=== PATIENT | female | born 1945 | race Caucasian/White ===

== ENCOUNTER 2021-01-30 21:03 | Inpatient (IN) ==
[2021-01-30] MEDS ORDERED: SODIUM CHLORIDE 0.9% 1000ML 1,000 ML IV SCH (21:15)
[2021-01-30] MEDS ORDERED: ACETAMINOPHEN 1,000 MG/100 ML VIAL IV STA (21:15)
[2021-01-30 21:38] LABS: Basophils # (auto) 0.02 K/uL (0-0.2); Basophils % (auto) 0.2 %; Eosinophils # (auto) 0.02 K/uL (0-0.5); Eosinophils % (auto) 0.2 %; Hematocrit (blood only) 24.9 % (37-47); Hemoglobin 8.2 g/dL (12.0-16.0); Immature Granulocytes # (auto) 0.04 K/uL (0.00-0.02); Immature Granulocytes % (auto) 0.4 %; Lymphocytes # (auto) 0.34 K/uL (1.2-3.4); Lymphocytes % (auto) 3.7 %; Mean Corpuscular Hemoglobin 38.7 pg (25-34); Mean Corpuscular Hgb Conc 32.9 g/dL (32-36); Mean Corpuscular Volume 117.5 fL (80-100); Mean Platelet Volume 8.8 fL (7.4-10.4); Monocytes # (auto) 0.44 K/uL (0.11-0.59); Monocytes % (auto) 4.8 %; Neutrophils # (auto) 8.38 K/uL (1.4-6.5); Neutrophils % (auto) 90.7 %; Platelet Count 439 K/uL (130-400); RDW Coefficient of Variation 23.4 % (11.5-14.5); RDW Standard Deviation 99.1 fL (36.4-46.3); Red Blood Count 2.12 M/uL (4.2-5.4); White Blood Count 9.24 K/uL (4.8-10.8)
[2021-01-30 21:48] LABS: INR 1.1 (0.9-1.1); Partial Thromboplastin Ratio 1.1; Prothrombin Time 10.9 Seconds (9.0-12.0)
[2021-01-30 22:03] LABS: Alanine Aminotransferase 13 U/L (12-78); Albumin Level 2.3 gm/dl (3.4-5.0); Aspartate Aminotransferase 14 U/L (15-37); BUN Creatinine Ratio 20.1 (10-20); Blood Urea Nitrogen 22 mg/dl (7-18); Calcium 8.3 mg/dl (8.5-10.1); Carbon Dioxide 28 mmol/L (21-32); Chloride 101 mmol/L (98-107); Est GFR (African American) 56.7; Est GFR (Non-African American) 48.9; Glucose 233 mg/dl (70-99); Magnesium 2.2 mg/dl (1.8-2.4); Potassium 3.6 mmol/L (3.5-5.1); Sodium 135 mmol/L (136-145)
[2021-01-30 22:08] LABS: Albumin Globulin Ratio 0.6 (0.9-2); Alkaline Phosphatase 100 U/L (45-117); Bilirubin,Total 0.8 mg/dl (0.2-1); Globulin 4.2 gm/dl (2.5-4.0); Total Protein 6.5 gm/dl (6.4-8.2); Troponin I < 0.015 ng/ml (0-0.045)
[2021-01-30 22:45] LABS: Appearance Urine Turbid (Clear); Bacteria Urine Automated Negative (Negative); Bilirubin Urine Negative (Negative); Blood Urine Trace (Negative); Color Urine Yellow; Epithelial Cell Urine Auto >30 /lpf (0-5); Glucose Urine UA Negative (Negative); Ketones Urine Negative (Negative); Leukocyte Esterase Urine Trace (Negative); Nitrite Urine Negative (Negative); Specific Gravity Urine 1.016 (1.000-1.030); Urobilinogen Urine Negative (Negative); pH Urine 7.5 (4.5-7.5)
[2021-01-30 22:48] LABS: Protein Urine 1+ (Negative)
[2021-01-30 22:48] LABS: Anisocytosis Present; Macrocytosis Present; Ovalocytes 1+
[2021-01-30 22:57] LABS: Calcium Oxalate Crystals Urine Present (None Prsent)
[2021-01-30] MEDS ORDERED: VANCOMYCIN HCL 1,500 MG in SODIUM CHLORIDE 0.9% 500 ML IV ONE (23:01)
[2021-01-30] MEDS ORDERED: CEFEPIME 2,000 MG/20 ML VIAL IV STA (23:01)
[2021-01-30] MEDS ORDERED: VANCOMYCIN CONSULT ACTIVE PRN (23:01)
[2021-01-30 23:18] LABS: Influenza A virus by PCR Negative (Neg); Influenza B virus by PCR Negative (Neg); RSV by PCR Negative (Neg); SARS CoV2 RNA(COVID-19) InHosp NEGATIVE (Negative)
--- NOTE | 2021-01-30 23:57 | History & Physical Report ---
Date of Service January 30, 2021 Assessment & Plan (1) Heel ulcer: S/p skin plasty performed by Podiatry. Deep wound culture from 01/24/21 with 2+ ESBL E. coli as well as 3+ Pseudomonas and 2+ Morganella morganii. 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 Was on Daptomycin then Ertapenem/Levofloxacin. She is febrile on arrival but does not appear toxic or septic. Concern for possible bacteremia from recent procedure? -Observation to medical -Podiatry consultation appreciated -Empiric coverage with Vancomycin and Meropenem - will cover her history of MRSA as well as her ESBL E. coli, Morganella and Pseudomonas isolated from wound culture -Consider ID consultation? Patient is able to receive IV abx at her care home -Isolation precautions - Contact - for history of ESBL as well as MRSA -Continue Vitamin C to aide in wound heeling as well as Zinc Present on Admission?: Yes (2) Fever: As above. Patinent is HD stable and does not appear to be septic. -Follow cultures -Abx as above Present on Admission?: Yes (3) Hypothyroid: Chronic. s/p thyroidectomy -Continue Synthroid 125mcg po daily Present on Admission?: Yes (4) HTN (hypertension): Chronic. Blood pressure stable at present, 113/55 -Continue Metoprolol 50mg po BID Present on Admission?: Yes (5) Diabetes type 2, controlled: Chronic. Blood sugar is well controlled -Continue Lantus 20 mg qPM -ISS -Continue Gabapentin Present on Admission?: Yes (6) Chronic incomplete quadriplegia: -Continue Flexeril -Continue Baclofen -Fall precautions -Aspiration precautions Present on Admission?: Yes (7) CAD (coronary artery disease): Chronic. Stable. No CP -Continue Atorvastatin -Continue Zetia -Continue Metoprolol Present on Admission?: Yes (8) Anemia: Near baseline. Hgb=8.2, Hct=24.9. Macrocytic with ZHH=599.5. No active bleeding suspected. -Continue to monitor -Check B12 and Folate with AM labs F/E/N - Encourage PO intake. Electrolytes WNL. CC/AHA diet as tolerated, continue bowel regimen with Miralax daily and Colace PRN Ppx - Lovenox 40 Code - Full Dispo -Observation to medical Present on Admission?: Yes History of Present Illness Chief Complaint: fever Primary Care Provider: [facility] Anette Weller is a 75yo female with partial quadriparesis presenting from her care home with fever x 1 day. Patient had a bone spur excision/calcanectomy performed on 01/20/[address] Holly of Podiatry. She was seen again on 01/29/21 with complaint of ulcer at the area. She was found to have a right full thickness retrocalcaneal heel wound with exposed achilles tendon wound 9 x 8 x 3cm. A wound culture showed multiple organisms - Pseudomonas, Morganella and ESBL E.coli Patient had been on Daptomycin 270mg IV daily. She had a skin- plasty performed to assist with wound healing. Patient was started on Ertapenem and Levofloxacin which was recommended by ID team from [facility] She presents to ER today with fever. Also with episodic nausea, two episodes of non-bloody/non-bilious emesis this week. No additional complaints. Specifically denies chest pain/palpitations/cough/SOB/abdominal pain/diarrhea. Case discussed with Food Products Tester who will see patient in AM ER course: Vancomycin, Cefepime Allergies Allergy/AdvReac Type Severity Reaction Status Date / Time mold Allergy Unknown Verified 01/30/21 22:18 pollen extracts Allergy Unknown Verified 01/30/21 22:18 artificial sweeteners Allergy Unknown Uncoded 01/30/21 22:19 Home Medications Medication Instructions Recorded Confirmed Type Protein Powder 1 dose PO TID 01/30/21 01/30/21 History acetaminophen [Tylenol] 650 mg PO Q6 PRN 01/30/21 01/30/21 History albuterol sulfate [Proventil HFA] 2 puff INHALATION Q4 PRN 01/30/21 01/30/21 History ascorbic acid (vitamin C) [Vitamin 500 mg PO BID 01/30/21 01/30/21 History C] atorvastatin 80 mg PO QPM 01/30/21 01/30/21 History baclofen 5 mg PO BID 01/30/21 01/30/21 History baclofen 10 mg PO HS 01/30/21 01/30/21 History bisacodyl [Dulcolax (bisacodyl)] 10 mg [place] UD PRN 01/30/21 01/30/21 History cyclobenzaprine 10 mg PO Q8 PRN 01/30/21 01/30/21 History ertapenem 1 g IV DAILY 01/30/21 01/30/21 History ezetimibe [Zetia] 10 mg PO DAILY 01/30/21 01/30/21 History ferrous sulfate [Iron (ferrous 325 mg PO DAILY 01/30/21 01/30/21 History sulfate)] gabapentin 100 mg PO TID 01/30/21 01/30/21 History heparin lock flush (porcine) 5 unit IV QS 01/30/21 01/30/21 History [heparin lock flush] hydroxyurea 500 mg PO BID 01/30/21 01/30/21 History insulin aspart U-100 [Novolog 0 sliding scale dose SUBCUT UD 01/30/21 01/30/21 History U-100 Insulin aspart] insulin glargine [Lantus U-100 20 unit SUBCUT QPM 01/30/21 01/30/21 History Insulin] levofloxacin 750 mg PO DAILY 01/30/21 01/30/21 History levothyroxine 125 mcg PO DAILY 01/30/21 01/30/21 History magnesium oxide 400 mg PO DAILY 01/30/21 01/30/21 History melatonin 1 mg PO HS 01/30/21 01/30/21 History metoprolol tartrate 50 mg PO Q12 01/30/21 01/30/21 History multivitamin 1 tab PO DAILY 01/30/21 01/30/21 History ondansetron HCl [Zofran] 4 mg PO Q6H PRN 01/30/21 01/30/21 History peg 400-propylene glycol [Systane 1 drp OPHTHALMIC (EYE) QPM 01/30/21 01/30/21 History Gel] polyethylene glycol 3350 [Miralax] 17 g PO DAILY 01/30/21 01/30/21 History sodium chloride 1 spray INTRANASAL Q6 PRN 01/30/21 01/30/21 History sodium chloride 0.9 % (flush) 10 ml IV QS 01/30/21 01/30/21 History [Saline Flush] zinc sulfate 220 mg PO DAILY 01/30/21 01/30/21 History Past Med/Surg History Medical History (Updated 01/31/21 @ 00:18 by Lili Rodríugez DO) Anemia CAD (coronary artery disease) Cardiomyopathy Chronic incomplete quadriplegia Depression Diabetes type 2, controlled History of DVT (deep vein thrombosis) 02/26/20 LLE History of ND (myocardial infarction) 2004 History of renal cell cancer HTN (hypertension) Hypothyroid Myelodysplasia (myelodysplastic syndrome) Neurogenic bowel Seasonal asthma Surgical History (Updated 03/01/20 @ 09:48 by Stephy Alejo RN) History of right nephrectomy History of thyroidectomy Social History Smoking Status: Never smoker Preferred Language: Faroese Feels Safe at Home: Yes Review of Systems Review of Systems: All systems reviewed & are unremarkable except as noted in HPI & below Physical Exam Physical Exam: General: patient chronically ill in appearance, resting comfortably, NAD, AA&O x 4 Skin: warm, dry, intact, bandage on right heel,c/d/i HEENT: NC/AT, PERRL, EOMI, anicteric sclera, conjunctiva without injection, external ear normal to inspection and nontender, nares patent, moist mucus membranes, dentition intact, no oropharyngeal lesions, neck supple, trachea midline, no LAD, no thyromegaly, no JVD Heart: +S1/S2, regular, no m/r/g Lungs: equal air entry bilaterally, no rales/rhonchi/wheezes Abd: +BS, soft, NT/ND, no masses/organomegaly/ascites, indwelling [place] catheter Ext: warm, palpable pulses, no edema Neuro: AA&O x 4, speech intact, no facial droop, muscular weakness in all extremities, flexion contractures present on hands and feet Results & Data Results & Data ([facility]) Vital Signs (Past 12 Hours) Vital Signs Temp Pulse Resp BP Pulse Ox 01/30/21 23:41 37.1 C 01/30/21 23:30 84 21 113/55 L 95 01/30/21 23:00 82 20 120/57 L 94 01/30/21 22:45 81 23 93 01/30/21 22:30 85 21 118/62 94 01/30/21 22:15 85 23 94 01/30/21 22:00 87 22 123/59 L 93 01/30/21 21:45 91 H 21 95 01/30/21 21:31 87 21 01/30/21 21:30 88 20 115/58 L 01/30/21 21:11 38.1 C H 93 H 20 113/58 L 94 Laboratory Results Lab Results 01/30/21 01/30/21 01/30/21 Range/Units 21:23 21:23 21:23 WBC 9.24 (4.8-10.8) K/uL RBC 2.12 L (4.2-5.4) M/uL Hgb 8.2 L (12.0-16.0) g/dL Hct 24.9 L (37-47) % MCV 117.5 H (80-100) fL MCH 38.7 H (25-34) pg MCHC 32.9 (32-36) g/dL RDW Std Deviation 99.1 H (36.4-46.3) fL RDW Coeff of Alicia 23.4 H (11.5-14.5) % Plt Count 439 H (130-400) K/uL MPV 8.8 (7.4-10.4) fL Immature Gran % (Auto) 0.4 % Neut % (Auto) 90.7 % Lymph % (Auto) 3.7 % [place] % (Auto) 4.8 % Eos % (Auto) 0.2 % Baso % (Auto) 0.2 % Neut # (Auto) 8.38 H (1.4-6.5) K/uL Lymph # (Auto) 0.34 L (1.2-3.4) K/uL [place] # (Auto) 0.44 (0.11-0.59) K/uL Eos # (Auto) 0.02 (0-0.5) K/uL Baso # (Auto) 0.02 (0-0.2) K/uL Immature Gran # (Auto) 0.04 H (0.00-0.02) K/uL Hypersegmented Neuts 1+ Anisocytosis Present Macrocytosis Present Ovalocytes 1+ PT 10.9 (9.0-12.0) Seconds INR 1.1 (0.9-1.1) APTT 28.0 (21.0-31.0) Seconds PTT Ratio 1.1 Sodium 135 L (136-145) mmol/L Potassium 3.6 (3.5-5.1) mmol/L Chloride 101 (98-107) mmol/L Carbon Dioxide 28 (21-32) mmol/L Anion Gap 6.0 (3-11) BUN 22 H (7-18) mg/dl Creatinine 1.11 (0.6-1.2) mg/dl Est Cr Clr Drug Dosing Not Reportable Est GFR ( Amer) 56.7 Est GFR (Non-Af Amer) 48.9 BUN/Creatinine Ratio 20.1 H (10-20) Glucose 233 H (70-99) mg/dl Lactate (0.4-2.0) mmol/L Calcium 8.3 L (8.5-10.1) mg/dl Magnesium 2.2 (1.8-2.4) mg/dl Total Bilirubin 0.8 (0.2-1) mg/dl AST 14 L (15-37) U/L ALT 13 (12-78) U/L Alkaline Phosphatase 100 (45-117) U/L Troponin I < 0.015 (0-0.045) ng/ml Total Protein 6.5 (6.4-8.2) gm/dl Albumin 2.3 L (3.4-5.0) gm/dl Globulin 4.2 H (2.5-4.0) gm/dl Albumin/Globulin Ratio 0.6 L (0.9-2) Procalcitonin (0-0.5) ng/ml Urine Color Urine Appearance (Clear) Urine pH (4.5-7.5) Ur Specific [place] (1.000-1.030) Urine Protein (Negative) Urine Glucose (UA) (Negative) Urine Ketones (Negative) Urine Blood (Negative) Urine Nitrite (Negative) Urine Bilirubin (Negative) Urine Urobilinogen (Negative) Ur Leukocyte Esterase (Negative) Urine WBC (Auto) (0-5) /hpf Urine RBC (Auto) (0-4) /hpf U Hyaline Cast (Auto) (0-5) /lpf U Epithel Cells (Auto) (0-5) /lpf Urine Bacteria (Auto) (Negative) Urine Crystals Calcium Oxalate Crystal (None Prsent) Urine Yeast (None Prsent) COVID-19 Eval Order SARS-CoV-2 (PCR) (Negative) Influenza Type A (PCR) (Neg) Influenza Type B (PCR) (Neg) RSV (RT-PCR) (Neg) 01/30/21 01/30/21 01/30/21 Range/Units 21:23 21:23 22:28 WBC (4.8-10.8) K/uL RBC (4.2-5.4) M/uL Hgb (12.0-16.0) g/dL Hct (37-47) % MCV (80-100) fL MCH (25-34) pg MCHC (32-36) g/dL RDW Std Deviation (36.4-46.3) fL RDW Coeff of Alicia (11.5-14.5) % Plt Count (130-400) K/uL MPV (7.4-10.4) fL Immature Gran % (Auto) % Neut % (Auto) % Lymph % (Auto) % [place] % (Auto) % Eos % (Auto) % Baso % (Auto) % Neut # (Auto) (1.4-6.5) K/uL Lymph # (Auto) (1.2-3.4) K/uL [place] # (Auto) (0.11-0.59) K/uL Eos # (Auto) (0-0.5) K/uL Baso # (Auto) (0-0.2) K/uL Immature Gran # (Auto) (0.00-0.02) K/uL Hypersegmented Neuts Anisocytosis Macrocytosis Ovalocytes PT (9.0-12.0) Seconds INR (0.9-1.1) APTT (21.0-31.0) Seconds PTT Ratio Sodium (136-145) mmol/L Potassium (3.5-5.1) mmol/L Chloride (98-107) mmol/L Carbon Dioxide (21-32) mmol/L Anion Gap (3-11) BUN (7-18) mg/dl Creatinine (0.6-1.2) mg/dl Est Cr Clr Drug Dosing Est GFR ( Amer) Est GFR (Non-Af Amer) BUN/Creatinine Ratio (10-20) Glucose (70-99) mg/dl Lactate 1.0 (0.4-2.0) mmol/L Calcium (8.5-10.1) mg/dl Magnesium (1.8-2.4) mg/dl Total Bilirubin (0.2-1) mg/dl AST (15-37) U/L ALT (12-78) U/L Alkaline Phosphatase (45-117) U/L Troponin I (0-0.045) ng/ml Total Protein (6.4-8.2) gm/dl Albumin (3.4-5.0) gm/dl Globulin (2.5-4.0) gm/dl Albumin/Globulin Ratio (0.9-2) Procalcitonin 0.23 (0-0.5) ng/ml Urine Color Yellow Urine Appearance Turbid A (Clear) Urine pH 7.5 (4.5-7.5) Ur Specific [place] 1.016 (1.000-1.030) Urine Protein 1+ H (Negative) Urine Glucose (UA) Negative (Negative) Urine Ketones Negative (Negative) Urine Blood Trace H (Negative) Urine Nitrite Negative (Negative) Urine Bilirubin Negative (Negative) Urine Urobilinogen Negative (Negative) Ur Leukocyte Esterase Trace H (Negative) Urine WBC (Auto) 10-30 H (0-5) /hpf Urine RBC (Auto) 5-10 H (0-4) /hpf U Hyaline Cast (Auto) 10-30 H (0-5) /lpf U Epithel Cells (Auto) >30 H (0-5) /lpf Urine Bacteria (Auto) Negative (Negative) Urine Crystals Not Reportable Calcium Oxalate Crystal Present A (None Prsent) Urine Yeast Budding w/ Hyphae A (None Prsent) COVID-19 Eval Order SARS-CoV-2 (PCR) (Negative) Influenza Type A (PCR) (Neg) Influenza Type B (PCR) (Neg) RSV (RT-PCR) (Neg) 01/30/21 01/30/21 Range/Units 22:28 22:28 WBC (4.8-10.8) K/uL RBC (4.2-5.4) M/uL Hgb (12.0-16.0) g/dL Hct (37-47) % MCV (80-100) fL MCH (25-34) pg MCHC (32-36) g/dL RDW Std Deviation (36.4-46.3) fL RDW Coeff of Alicia (11.5-14.5) % Plt Count (130-400) K/uL MPV (7.4-10.4) fL Immature Gran % (Auto) % Neut % (Auto) % Lymph % (Auto) % [place] % (Auto) % Eos % (Auto) % Baso % (Auto) % Neut # (Auto) (1.4-6.5) K/uL Lymph # (Auto) (1.2-3.4) K/uL [place] # (Auto) (0.11-0.59) K/uL Eos # (Auto) (0-0.5) K/uL Baso # (Auto) (0-0.2) K/uL Immature Gran # (Auto) (0.00-0.02) K/uL Hypersegmented Neuts Anisocytosis Macrocytosis Ovalocytes PT (9.0-12.0) Seconds INR (0.9-1.1) APTT (21.0-31.0) Seconds PTT Ratio Sodium (136-145) mmol/L Potassium (3.5-5.1) mmol/L Chloride (98-107) mmol/L Carbon Dioxide (21-32) mmol/L Anion Gap (3-11) BUN (7-18) mg/dl Creatinine (0.6-1.2) mg/dl Est Cr Clr Drug Dosing Est GFR ( Amer) Est GFR (Non-Af Amer) BUN/Creatinine Ratio (10-20) Glucose (70-99) mg/dl Lactate (0.4-2.0) mmol/L Calcium (8.5-10.1) mg/dl Magnesium (1.8-2.4) mg/dl Total Bilirubin (0.2-1) mg/dl AST (15-37) U/L ALT (12-78) U/L Alkaline Phosphatase (45-117) U/L Troponin I (0-0.045) ng/ml Total Protein (6.4-8.2) gm/dl Albumin (3.4-5.0) gm/dl Globulin (2.5-4.0) gm/dl Albumin/Globulin Ratio (0.9-2) Procalcitonin (0-0.5) ng/ml Urine Color Urine Appearance (Clear) Urine pH (4.5-7.5) Ur Specific [place] (1.000-1.030) Urine Protein (Negative) Urine Glucose (UA) (Negative) Urine Ketones (Negative) Urine Blood (Negative) Urine Nitrite (Negative) Urine Bilirubin (Negative) Urine Urobilinogen (Negative) Ur Leukocyte Esterase (Negative) Urine WBC (Auto) (0-5) /hpf Urine RBC (Auto) (0-4) /hpf U Hyaline Cast (Auto) (0-5) /lpf U Epithel Cells (Auto) (0-5) /lpf Urine Bacteria (Auto) (Negative) Urine Crystals Calcium Oxalate Crystal (None Prsent) Urine Yeast (None Prsent) COVID-19 Eval Order CovFluRsv at [facility] SARS-CoV-2 (PCR) NEGATIVE (Negative) Influenza Type A (PCR) Negative (Neg) Influenza Type B (PCR) Negative (Neg) RSV (RT-PCR) Negative (Neg) Code Status & VTE Plan VTE Prophylaxis Plan VTE Prophylaxis will be ordered: Yes PG Care Time/CCT Total # of Minutes Spent Total Time Spent with Patient: Total time spent is greater than 50% in coordination of care (as documented) at patient's floor/unit and/or counseling patient: Coding Level of Care Code 21058 OBS Care - Level 3 Diagnoses Heel ulcer L97.419 Laterality: right Non-pressure ulcer stage: unspecified non-pressure ulcer stage Fever R50.9 Fever type: unspecified Hypothyroid E03.9 Hypothyroidism type: unspecified HTN (hypertension) I10 Hypertension type: unspecified Diabetes type 2, controlled E11.9 Diabetes mellitus shelter insulin use: unspecified shelter insulin use status Diabetes mellitus complication status: without complication Chronic incomplete quadriplegia G82.50 CAD (coronary artery disease) I25.10 Coronary Disease-Associated Artery/Lesion type: [place] artery [place] vs. transplanted heart: [place] heart Associated angina: without angina Anemia D64.9 Anemia type: unspecified type (1) Heel ulcer Laterality: right Non-pressure ulcer stage: unspecified non-pressure ulcer stage Qualified Code(s): L97.419 - Non-pressure chronic ulcer of right heel and midfoot with unspecified severity (2) Fever Fever type: unspecified Qualified Code(s): R50.9 - Fever, unspecified (3) Hypothyroid Hypothyroidism type: unspecified Qualified Code(s): E03.9 - Hypothyroidism, unspecified (4) HTN (hypertension) Hypertension type: unspecified Qualified Code(s): I10 - Essential (primary) hypertension (5) Diabetes type 2, controlled Diabetes mellitus shelter insulin use: unspecified salvage determiner insulin use status Diabetes mellitus complication status: without complication Qualified Code(s): E11.9 - Type 2 diabetes mellitus without complications (6) CAD (coronary artery disease) Coronary Disease-Associated Artery/Lesion type: [place] artery [place] vs. transplanted heart: [place] heart Associated angina: without angina Qualified Code(s): I25.10 - Atherosclerotic heart disease of [place] coronary artery without angina pectoris (7) Anemia Anemia type: unspecified type Qualified Code(s): D64.9 - Anemia, unspecified
--- NOTE | 2021-01-31 00:10 | Emergency Department Note ---
History of Present Illness General Chief complaint: Illness Stated complaint: ILLNESS, FEVER Time Seen by Provider: 01/30/21 21:05 History of Present Illness Provider complaint: Fever Onset (ago): day(s) 1 75-year-old quadriplegic presents emergency department from the [facility] for fever. Patient denies any cough. She states she has been feeling nauseous and ill. Patient states she is tested negative for COVID-19. Patient had recent foot surgery by Dr. Holly podiatry. Home Medications Medication Instructions Recorded Confirmed Type Protein Powder 1 dose PO TID 01/30/21 01/30/21 History acetaminophen [Tylenol] 650 mg PO Q6 PRN 01/30/21 01/30/21 History albuterol sulfate [Proventil HFA] 2 puff INHALATION Q4 PRN 01/30/21 01/30/21 History ascorbic acid (vitamin C) [Vitamin 500 mg PO BID 01/30/21 01/30/21 History C] atorvastatin 80 mg PO QPM 01/30/21 01/30/21 History baclofen 5 mg PO BID 01/30/21 01/30/21 History baclofen 10 mg PO HS 01/30/21 01/30/21 History bisacodyl [Dulcolax (bisacodyl)] 10 mg AK UD PRN 01/30/21 01/30/21 History cyclobenzaprine 10 mg PO Q8 PRN 01/30/21 01/30/21 History ertapenem 1 g IV DAILY 01/30/21 01/30/21 History ezetimibe [Zetia] 10 mg PO DAILY 01/30/21 01/30/21 History ferrous sulfate [Iron (ferrous 325 mg PO DAILY 01/30/21 01/30/21 History sulfate)] gabapentin 100 mg PO TID 01/30/21 01/30/21 History heparin lock flush (porcine) 5 unit IV QS 01/30/21 01/30/21 History [heparin lock flush] hydroxyurea 500 mg PO BID 01/30/21 01/30/21 History insulin aspart U-100 [Novolog 0 sliding scale dose SUBCUT UD 01/30/21 01/30/21 History U-100 Insulin aspart] insulin glargine [Lantus U-100 20 unit SUBCUT QPM 01/30/21 01/30/21 History Insulin] levofloxacin 750 mg PO DAILY 01/30/21 01/30/21 History levothyroxine 125 mcg PO DAILY 01/30/21 01/30/21 History magnesium oxide 400 mg PO DAILY 01/30/21 01/30/21 History melatonin 1 mg PO HS 01/30/21 01/30/21 History metoprolol tartrate 50 mg PO Q12 01/30/21 01/30/21 History multivitamin 1 tab PO DAILY 01/30/21 01/30/21 History ondansetron HCl [Zofran] 4 mg PO Q6H PRN 01/30/21 01/30/21 History peg 400-propylene glycol [Systane 1 drp OPHTHALMIC (EYE) QPM 01/30/21 01/30/21 History Gel] polyethylene glycol 3350 [Miralax] 17 g PO DAILY 01/30/21 01/30/21 History sodium chloride 1 spray INTRANASAL Q6 PRN 01/30/21 01/30/21 History sodium chloride 0.9 % (flush) 10 ml IV QS 01/30/21 01/30/21 History [Saline Flush] zinc sulfate 220 mg PO DAILY 01/30/21 01/30/21 History Allergies Allergy/AdvReac Type Severity Reaction Status Date / Time mold Allergy Unknown Verified 01/30/21 22:18 pollen extracts Allergy Unknown Verified 01/30/21 22:18 artificial sweeteners Allergy Unknown Uncoded 01/30/21 22:19 Past Med/Surg History Medical History Anemia CAD (coronary artery disease) Cardiomyopathy Chronic incomplete quadriplegia Depression Diabetes type 2, controlled History of DVT (deep vein thrombosis) 02/26/20 LLE History of MS (myocardial infarction) 2004 History of renal cell cancer HTN (hypertension) Hypothyroid Myelodysplasia (myelodysplastic syndrome) Neurogenic bowel Seasonal asthma Surgical History History of right nephrectomy History of thyroidectomy Social History Smoking Status: Never smoker Preferred Language: Danish Feels Safe at Home: Yes Review of Systems A total of 10 systems reviewed and were otherwise negative Physical Exam Vital Signs Vital Signs - 24 hr 01/30/21 21:11 01/30/21 21:14 01/30/21 21:30 Temperature 38.1 C H Temperature Source Rectal Pulse Rate 93 H 88 Pulse Rate from SpO2 Sensor 88 Respiratory Rate 20 20 Respiratory Effort / Characteristics Non-Labored Spontaneous Non-Labored Spontaneous Respiratory Depth Normal Respiratory Pattern Regular Blood Pressure 113/58 L 115/58 L Blood Pressure Mean 76 77 Blood Pressure Position Lying Pulse Oximetry 94 Oxygen Delivery Method Room Air Room Air Sepsis Recent Fever Within 48 Hours No Sepsis New/Unexplained Change in Mental Status No Sepsis Action Taken by Nursing No Action Required 01/30/21 21:31 01/30/21 21:44 01/30/21 21:45 Temperature Temperature Source Pulse Rate 87 91 H Pulse Rate from SpO2 Sensor 86 91 H Respiratory Rate 21 21 Respiratory Effort / Characteristics Non-Labored Spontaneous Respiratory Depth Respiratory Pattern Blood Pressure Blood Pressure Mean Blood Pressure Position Pulse Oximetry 95 Oxygen Delivery Method Room Air Room Air Room Air Sepsis Recent Fever Within 48 Hours Sepsis New/Unexplained Change in Mental Status Sepsis Action Taken by Nursing 01/30/21 22:00 01/30/21 22:14 01/30/21 22:15 Temperature Temperature Source Pulse Rate 87 85 Pulse Rate from SpO2 Sensor 87 86 Respiratory Rate 22 23 Respiratory Effort / Characteristics Non-Labored Spontaneous Respiratory Depth Respiratory Pattern Blood Pressure 123/59 L Blood Pressure Mean 80 Blood Pressure Position Pulse Oximetry 93 94 Oxygen Delivery Method Room Air Room Air Room Air Sepsis Recent Fever Within 48 Hours Sepsis New/Unexplained Change in Mental Status Sepsis Action Taken by Nursing 01/30/21 22:30 01/30/21 22:45 01/30/21 23:00 Temperature Temperature Source Pulse Rate 85 81 82 Pulse Rate from SpO2 Sensor 85 81 81 Respiratory Rate 21 23 20 Respiratory Effort / Characteristics Non-Labored Spontaneous Non-Labored Spontaneous Respiratory Depth Respiratory Pattern Blood Pressure 118/62 120/57 L Blood Pressure Mean 80 78 Blood Pressure Position Pulse Oximetry 94 93 94 Oxygen Delivery Method Room Air Room Air Room Air Sepsis Recent Fever Within 48 Hours Sepsis New/Unexplained Change in Mental Status Sepsis Action Taken by Nursing 01/30/21 23:30 01/30/21 23:41 Temperature 37.1 C Temperature Source Oral Pulse Rate 84 Pulse Rate from SpO2 Sensor Respiratory Rate 21 Respiratory Effort / Characteristics Respiratory Depth Respiratory Pattern Blood Pressure 113/55 L Blood Pressure Mean 74 Blood Pressure Position Pulse Oximetry 95 Oxygen Delivery Method Room Air Sepsis Recent Fever Within 48 Hours Sepsis New/Unexplained Change in Mental Status Sepsis Action Taken by Nursing Physical Exam GENERAL: She is oriented to person, place, and time. She appears well-developed and well-nourished. She does not appear distressed. HENT: Exam performed. -Head: Normocephalic and atraumatic. -Right Ear: External ear normal. No mastoid tenderness. -Left Ear: External ear normal. No mastoid tenderness. -Mouth/Throat: The oropharynx is clear and moist. No trismus in the jaw. No dental abscesses or uvula swelling. No oropharyngeal exudate or tonsillar abscesses. EYES: Conjunctivae and EOM are normal. Pupils are equal, round, and reactive to light. Right eye exhibits no discharge. Left eye exhibits no discharge. No scleral icterus. NECK: Normal range of motion. Neck supple. No JVD present. No spinous process tenderness present. No carotid bruit present. No rigidity. No tracheal deviation and normal range of motion present. No Brudzinski's sign and no Kernig's sign noted. CV: Normal rate, regular rhythm, normal heart sounds and intact distal pulses. There is no peripheral edema. Palpable radial pulses bue. PULM/CHEST: Rhonchi bilaterally ABD: The abdomen is soft. MUSC/SKEL: Dressing over the right lower extremity. Patient states not to remove the dressing as she has been told strictly by Dr. Holly not to remove the dressing. PSYCH: She has a normal mood and affect. Behavior is normal. Judgment and thought content normal. Course Course 2104: The patient was evaluated in room A11. A complete history and physical exam was performed Cardiac monitoring: An order was placed for continuous cardiac monitoring. The monitor shows a rate of 100 with sinus rhythm Sepsis protocols initiated. 2257: Vital signs stable. Labs within normal limits. Imaging shows no evidence of pneumonia. Urinalysis shows no signs of acute UTI. I did discuss the case with Dr. Holly the patient's surgeon. He states that earlier this month the patient had a calcanectomy and on Thursday she had a skin plasty. He recommends not to remove the dressing. He states she has been on ertapenem and Levaquin recommended by infectious disease at [facility]. I explained him that the patient will be admitted to the [facility]ist team and he could evaluate the patient in the morning to make sure that the wound is not infected. Broad- spectrum antibiotics vancomycin and cefepime will be initiated. He states he is happy to be on consult. Patient will be admitted to the [facility] Hospitalist team Dr. Rodríguez will be notified. Spoke with the patient's daughter Anna [phone] and informed her that mother will be admitted to the hospital. She thanked me for taking care of her mother. Administered Medications Sodium Chloride (Nss 1000ml) 1,000 mls @ 125 mls/hr IV .Q8H DEREK Stop: 03/01/21 21:14 Last Admin: 01/30/21 22:22 Dose: 125 mls/hr Documented by: [id number] Vancomycin HCl 1,500 mg/ (Sodium Chloride) 530 mls @ 200 mls/hr IV NOW ONE Stop: 01/31/21 01:39 Last Admin: 01/30/21 23:20 Dose: 200 mls/hr Documented by: [id number] Discontinued Medications Acetaminophen (Ofirmev) 1,000 mg in 100 mls @ 400 mls/hr IV NOW STA Stop: 01/30/21 21:29 Last Infusion: 01/30/21 22:37 Dose: 0 mls/hr Documented by: [id number] Admin: 01/30/21 22:22 Dose: 400 mls/hr Documented by: [id number] Cefepime HCl (Maxipime) 2,000 mg in 20 mls @ 5 mls/min IV NOW STA; Protocol Stop: 01/30/21 23:04 Last Admin: 01/30/21 23:16 Dose: 5 mls/min Documented by: [id number] Medical Decision Making Laboratory Data Result diagrams: 01/30/21 21:23 01/30/21 21:23 Lab Results 01/30/21 01/30/21 01/30/21 Range/Units 21:23 21:23 21:23 WBC 9.24 (4.8-10.8) K/uL RBC 2.12 L (4.2-5.4) M/uL Hgb 8.2 L (12.0-16.0) g/dL Hct 24.9 L (37-47) % MCV 117.5 H (80-100) fL MCH 38.7 H (25-34) pg MCHC 32.9 (32-36) g/dL RDW Std Deviation 99.1 H (36.4-46.3) fL RDW Coeff of Alicia 23.4 H (11.5-14.5) % Plt Count 439 H (130-400) K/uL MPV 8.8 (7.4-10.4) fL Immature Gran % (Auto) 0.4 % Neut % (Auto) 90.7 % Lymph % (Auto) 3.7 % [place] % (Auto) 4.8 % Eos % (Auto) 0.2 % Baso % (Auto) 0.2 % Neut # (Auto) 8.38 H (1.4-6.5) K/uL Lymph # (Auto) 0.34 L (1.2-3.4) K/uL [place] # (Auto) 0.44 (0.11-0.59) K/uL Eos # (Auto) 0.02 (0-0.5) K/uL Baso # (Auto) 0.02 (0-0.2) K/uL Immature Gran # (Auto) 0.04 H (0.00-0.02) K/uL Hypersegmented Neuts 1+ Anisocytosis Present Macrocytosis Present Ovalocytes 1+ PT 10.9 (9.0-12.0) Seconds INR 1.1 (0.9-1.1) APTT 28.0 (21.0-31.0) Seconds PTT Ratio 1.1 Sodium 135 L (136-145) mmol/L Potassium 3.6 (3.5-5.1) mmol/L Chloride 101 (98-107) mmol/L Carbon Dioxide 28 (21-32) mmol/L Anion Gap 6.0 (3-11) BUN 22 H (7-18) mg/dl Creatinine 1.11 (0.6-1.2) mg/dl Est Cr Clr Drug Dosing Not Reportable Est GFR ( Amer) 56.7 Est GFR (Non-Af Amer) 48.9 BUN/Creatinine Ratio 20.1 H (10-20) Glucose 233 H (70-99) mg/dl Lactate (0.4-2.0) mmol/L Calcium 8.3 L (8.5-10.1) mg/dl Magnesium 2.2 (1.8-2.4) mg/dl Total Bilirubin 0.8 (0.2-1) mg/dl AST 14 L (15-37) U/L ALT 13 (12-78) U/L Alkaline Phosphatase 100 (45-117) U/L Troponin I < 0.015 (0-0.045) ng/ml Total Protein 6.5 (6.4-8.2) gm/dl Albumin 2.3 L (3.4-5.0) gm/dl Globulin 4.2 H (2.5-4.0) gm/dl Albumin/Globulin Ratio 0.6 L (0.9-2) Procalcitonin (0-0.5) ng/ml Urine Color Urine Appearance (Clear) Urine pH (4.5-7.5) Ur Specific [place] (1.000-1.030) Urine Protein (Negative) Urine Glucose (UA) (Negative) Urine Ketones (Negative) Urine Blood (Negative) Urine Nitrite (Negative) Urine Bilirubin (Negative) Urine Urobilinogen (Negative) Ur Leukocyte Esterase (Negative) Urine WBC (Auto) (0-5) /hpf Urine RBC (Auto) (0-4) /hpf U Hyaline Cast (Auto) (0-5) /lpf U Epithel Cells (Auto) (0-5) /lpf Urine Bacteria (Auto) (Negative) Urine Crystals Calcium Oxalate Crystal (None Prsent) Urine Yeast (None Prsent) COVID-19 Eval Order SARS-CoV-2 (PCR) (Negative) Influenza Type A (PCR) (Neg) Influenza Type B (PCR) (Neg) RSV (RT-PCR) (Neg) 01/30/21 01/30/21 01/30/21 Range/Units 21:23 21:23 22:28 WBC (4.8-10.8) K/uL RBC (4.2-5.4) M/uL Hgb (12.0-16.0) g/dL Hct (37-47) % MCV (80-100) fL MCH (25-34) pg MCHC (32-36) g/dL RDW Std Deviation (36.4-46.3) fL RDW Coeff of Alciia (11.5-14.5) % Plt Count (130-400) K/uL MPV (7.4-10.4) fL Immature Gran % (Auto) % Neut % (Auto) % Lymph % (Auto) % [place] % (Auto) % Eos % (Auto) % Baso % (Auto) % Neut # (Auto) (1.4-6.5) K/uL Lymph # (Auto) (1.2-3.4) K/uL [place] # (Auto) (0.11-0.59) K/uL Eos # (Auto) (0-0.5) K/uL Baso # (Auto) (0-0.2) K/uL Immature Gran # (Auto) (0.00-0.02) K/uL Hypersegmented Neuts Anisocytosis Macrocytosis Ovalocytes PT (9.0-12.0) Seconds INR (0.9-1.1) APTT (21.0-31.0) Seconds PTT Ratio Sodium (136-145) mmol/L Potassium (3.5-5.1) mmol/L Chloride (98-107) mmol/L Carbon Dioxide (21-32) mmol/L Anion Gap (3-11) BUN (7-18) mg/dl Creatinine (0.6-1.2) mg/dl Est Cr Clr Drug Dosing Est GFR ( Amer) Est GFR (Non-Af Amer) BUN/Creatinine Ratio (10-20) Glucose (70-99) mg/dl Lactate 1.0 (0.4-2.0) mmol/L Calcium (8.5-10.1) mg/dl Magnesium (1.8-2.4) mg/dl Total Bilirubin (0.2-1) mg/dl AST (15-37) U/L ALT (12-78) U/L Alkaline Phosphatase (45-117) U/L Troponin I (0-0.045) ng/ml Total Protein (6.4-8.2) gm/dl Albumin (3.4-5.0) gm/dl Globulin (2.5-4.0) gm/dl Albumin/Globulin Ratio (0.9-2) Procalcitonin 0.23 (0-0.5) ng/ml Urine Color Yellow Urine Appearance Turbid A (Clear) Urine pH 7.5 (4.5-7.5) Ur Specific [place] 1.016 (1.000-1.030) Urine Protein 1+ H (Negative) Urine Glucose (UA) Negative (Negative) Urine Ketones Negative (Negative) Urine Blood Trace H (Negative) Urine Nitrite Negative (Negative) Urine Bilirubin Negative (Negative) Urine Urobilinogen Negative (Negative) Ur Leukocyte Esterase Trace H (Negative) Urine WBC (Auto) 10-30 H (0-5) /hpf Urine RBC (Auto) 5-10 H (0-4) /hpf U Hyaline Cast (Auto) 10-30 H (0-5) /lpf U Epithel Cells (Auto) >30 H (0-5) /lpf Urine Bacteria (Auto) Negative (Negative) Urine Crystals Not Reportable Calcium Oxalate Crystal Present A (None Prsent) Urine Yeast Budding w/ Hyphae A (None Prsent) COVID-19 Eval Order SARS-CoV-2 (PCR) (Negative) Influenza Type A (PCR) (Neg) Influenza Type B (PCR) (Neg) RSV (RT-PCR) (Neg) 01/30/21 01/30/21 Range/Units 22:28 22:28 WBC (4.8-10.8) K/uL RBC (4.2-5.4) M/uL Hgb (12.0-16.0) g/dL Hct (37-47) % MCV (80-100) fL MCH (25-34) pg MCHC (32-36) g/dL RDW Std Deviation (36.4-46.3) fL RDW Coeff of Alicia (11.5-14.5) % Plt Count (130-400) K/uL MPV (7.4-10.4) fL Immature Gran % (Auto) % Neut % (Auto) % Lymph % (Auto) % [place] % (Auto) % Eos % (Auto) % Baso % (Auto) % Neut # (Auto) (1.4-6.5) K/uL Lymph # (Auto) (1.2-3.4) K/uL [place] # (Auto) (0.11-0.59) K/uL Eos # (Auto) (0-0.5) K/uL Baso # (Auto) (0-0.2) K/uL Immature Gran # (Auto) (0.00-0.02) K/uL Hypersegmented Neuts Anisocytosis Macrocytosis Ovalocytes PT (9.0-12.0) Seconds INR (0.9-1.1) APTT (21.0-31.0) Seconds PTT Ratio Sodium (136-145) mmol/L Potassium (3.5-5.1) mmol/L Chloride (98-107) mmol/L Carbon Dioxide (21-32) mmol/L Anion Gap (3-11) BUN (7-18) mg/dl Creatinine (0.6-1.2) mg/dl Est Cr Clr Drug Dosing Est GFR ( Amer) Est GFR (Non-Af Amer) BUN/Creatinine Ratio (10-20) Glucose (70-99) mg/dl Lactate (0.4-2.0) mmol/L Calcium (8.5-10.1) mg/dl Magnesium (1.8-2.4) mg/dl Total Bilirubin (0.2-1) mg/dl AST (15-37) U/L ALT (12-78) U/L Alkaline Phosphatase (45-117) U/L Troponin I (0-0.045) ng/ml Total Protein (6.4-8.2) gm/dl Albumin (3.4-5.0) gm/dl Globulin (2.5-4.0) gm/dl Albumin/Globulin Ratio (0.9-2) Procalcitonin (0-0.5) ng/ml Urine Color Urine Appearance (Clear) Urine pH (4.5-7.5) Ur Specific [place] (1.000-1.030) Urine Protein (Negative) Urine Glucose (UA) (Negative) Urine Ketones (Negative) Urine Blood (Negative) Urine Nitrite (Negative) Urine Bilirubin (Negative) Urine Urobilinogen (Negative) Ur Leukocyte Esterase (Negative) Urine WBC (Auto) (0-5) /hpf Urine RBC (Auto) (0-4) /hpf U Hyaline Cast (Auto) (0-5) /lpf U Epithel Cells (Auto) (0-5) /lpf Urine Bacteria (Auto) (Negative) Urine Crystals Calcium Oxalate Crystal (None Prsent) Urine Yeast (None Prsent) COVID-19 Eval Order [facility]Rsv at [facility] SARS-CoV-2 (PCR) NEGATIVE (Negative) Influenza Type A (PCR) Negative (Neg) Influenza Type B (PCR) Negative (Neg) RSV (RT-PCR) Negative (Neg) Imaging Data My Impression: Chest x-ray negative. Airway clear. No pneumothorax. No consolidation. No cardiomegaly or cephalization.. No free air under the diaphragm. No fractures of the skeletal structures. Right foot: Part of the calcaneus is removed. No soft tissue gas. ECG Data Indication: + other (sepsis) Rate (beats per minute): 90 Rhythm: + normal sinus ECG Intervals/blocks: + Normal QRS, + Normal AK and + Normal QT-c ECG ST segments: + Normal ST segments [facility] Narrative 2104: The patient was evaluated in room A11. A complete history and physical exam was performed Cardiac monitoring: An order was placed for continuous cardiac monitoring. The monitor shows a rate of 100 with sinus rhythm Sepsis protocols initiated. 2257: Vital signs stable. Labs within normal limits. Imaging shows no evidence of pneumonia. Urinalysis shows no signs of acute UTI. I did discuss the case with Dr. Holly the patient's surgeon. He states that earlier this month the patient had a calcanectomy and on Thursday she had a skin plasty. He recommends not to remove the dressing. He states she has been on ertapenem and Levaquin recommended by infectious disease at [facility]. I explained him that the patient will be admitted to the [facility] hospitalist team and he could evaluate the patient in the morning to make sure that the wound is not infected. Broad- spectrum antibiotics vancomycin and cefepime will be initiated. He states he is happy to be on consult. Patient will be admitted to the [facility] hospitalist team Dr. Rodríguez will be notified. Spoke with the patient's daughter Anna [phone] and informed her that mother will be admitted to the hospital. She thanked me for taking care of her mother. Impression & Plan Fever postop Discharge Plan Visit Data Chief Complaint: Illness Stated Complaint: ILLNESS, FEVER ED Provider: Sage Mendoza Discharge Problem: Fever postop Patient Disposition: Being Evaluated by Hospitalist Forms Stand Alone Forms: My [facility] Prescriptions Prescriptions: No Action multivitamin Tablet 1 tab PO DAILY RF: 0 cyclobenzaprine 10 mg tablet 10 mg PO Q8 PRN (Reason: MUSCLE SPASMS) RF: 0 hydroxyurea 500 mg capsule 500 mg PO BID RF: 0 atorvastatin 80 mg tablet 80 mg PO QPM RF: 0 Lantus U-100 Insulin 100 unit/mL solution 20 unit SUBCUT QPM RF: 0 polyethylene glycol 3350 [Miralax] 17 gram Powder In Packet 17 g PO DAILY RF: 0 heparin lock flush (porcine) [heparin lock flush] 10 unit/mL Solution 5 unit IV QS RF: 0 baclofen 10 mg tablet 10 mg PO HS RF: 0 insulin aspart U-100 [Novolog U-100 Insulin aspart] 100 unit/mL solution 0 sliding scale dose subcut UD RF: 0 bisacodyl [Dulcolax (bisacodyl)] 10 mg Suppository 10 mg AK UD PRN (Reason: Constipation) RF: 0 ferrous sulfate [Iron (ferrous sulfate)] 325 mg (65 mg iron) Tablet 325 mg PO DAILY RF: 0 levothyroxine 125 mcg tablet 125 mcg PO DAILY RF: 0 metoprolol tartrate 50 mg tablet 50 mg PO Q12 RF: 0 gabapentin 100 mg capsule 100 mg PO TID RF: 0 levofloxacin 750 mg Tablet 750 mg PO DAILY RF: 0 ezetimibe [Zetia] 10 mg Tablet 10 mg PO DAILY RF: 0 melatonin 1 mg Tablet 1 mg PO HS RF: 0 ertapenem 1 gram Recon Soln 1 g IV DAILY RF: 0 baclofen 5 mg tablet 5 mg PO BID RF: 0 magnesium oxide 400 mg magnesium Tablet 400 mg PO DAILY RF: 0 Protein Powder 1 dose PO TID RF: 0 acetaminophen [Tylenol] 325 mg Tablet 650 mg PO Q6 PRN (Reason: Fever Or Pain) RF: 0 ondansetron HCl [Zofran] 4 mg Tablet 4 mg PO Q6H PRN (Reason: Nausea) RF: 0 ascorbic acid (vitamin C) [Vitamin C] 500 mg Tablet 500 mg PO BID RF: 0 albuterol sulfate [Proventil HFA] 90 mcg/actuation Hfa Aerosol Inhaler 2 puff INHALATION Q4 PRN (Reason: Shortness Of Breath Or Wheezing) RF: 0 zinc sulfate 220 mg Capsule 220 mg PO DAILY RF: 0 sodium chloride 0.9 % (flush) [Saline Flush] Syringe 10 ml IV QS RF: 0 sodium chloride 0.65 % Aerosol,Nicollet 1 spray INTRANASAL Q6 PRN (Reason: DRY NARES) RF: 0 Systane Gel 0.4-0.3 % Drops,Gel 1 drp OPHTHALMIC (EYE) QPM RF: 0 Referrals Referrals: [facility] [Primary Care Provider] -
[2021-01-31] MEDS ORDERED: GLUCOSE 40% GEL 15 GM TUBE PO PRN (01:42)
[2021-01-31] MEDS ORDERED: GLUCAGON FOR INJ 1 MG VIAL SQ PRN (01:42)
[2021-01-31] MEDS ORDERED: MEROPENEM 500 MG in SYRINGE 0 ML IV SCH ×2 (01:42→04:00)
[2021-01-31] MEDS ORDERED: MEROPENEM CONSULT ACITVE PRN (01:42)
[2021-01-31] MEDS ORDERED: ACETAMINOPHEN 325 MG TAB PO PRN ×2 (01:42)
[2021-01-31] MEDS ORDERED: ONDANSETRON INJ 2 MG/ML 2 ML VIAL IV PRN (01:42)
[2021-01-31] MEDS ORDERED: DEXTROSE 50% 50 ML SYRINGE IV PRN (01:42)
[2021-01-31] MEDS ORDERED: DOCUSATE SODIUM 100 MG CAP PO PRN (01:42)
[2021-01-31] MEDS ORDERED: VANCOMYCIN CONSULT ACTIVE PRN (01:42)
[2021-01-31] MEDS ORDERED: CARBOHYDRATES FOR HYPOGLYCEMIA PO PRN (01:42)
[2021-01-31] MEDS ORDERED: GLUCOSE 10 TABS/TUBE PO PRN (01:42)
[2021-01-31] MEDS ORDERED: CYCLOBENZAPRINE HCL 10 MG TAB PO PRN (03:06)
[2021-01-31] MEDS: INSULIN ASPART 100 UNITS/ML 3 ML PEN SC SCH ×5 (04:55→22:19)
[2021-01-31] MEDS ORDERED: INSULIN HUMAN REGULAR SC ONE (05:48)
[2021-01-31] MEDS: LEVOTHYROXINE SODIUM 125 MCG TABLET PO SCH (06:03)
[2021-01-31 06:39] LABS: Basophils # (auto) 0.02 K/uL (0-0.2); Basophils % (auto) 0.2 %; Eosinophils # (auto) 0.05 K/uL (0-0.5); Eosinophils % (auto) 0.5 %; Hematocrit (blood only) 23.1 % (37-47); Hemoglobin 7.6 g/dL (12.0-16.0); Immature Granulocytes # (auto) 0.06 K/uL (0.00-0.02); Immature Granulocytes % (auto) 0.5 %; Lymphocytes # (auto) 1.01 K/uL (1.2-3.4); Lymphocytes % (auto) 9.1 %; Mean Corpuscular Hemoglobin 38.8 pg (25-34); Mean Corpuscular Hgb Conc 32.9 g/dL (32-36); Mean Corpuscular Volume 117.9 fL (80-100); Mean Platelet Volume 8.8 fL (7.4-10.4); Monocytes # (auto) 0.45 K/uL (0.11-0.59); Monocytes % (auto) 4.1 %; Neutrophils # (auto) 9.45 K/uL (1.4-6.5); Neutrophils % (auto) 85.6 %; Platelet Count 430 K/uL (130-400); RDW Coefficient of Variation 23.7 % (11.5-14.5); RDW Standard Deviation 98.9 fL (36.4-46.3); Red Blood Count 1.96 M/uL (4.2-5.4); White Blood Count 11.04 K/uL (4.8-10.8)
--- NOTE | 2021-01-31 07:08 | Podiatry Consultation ---
Date of Consultation January 31, 2021 Assessment & Plan (1) Heel ulcer: Osteomyelitis of right calcaneus treated with excision of bone partial calcanectomy 01/24/21 with delayed primary closure and skin plasty 01/29/21. Dressing is removed at bedside. Sutures remain intact. Skin is well coapted. Th ere is no drainage, no signs of infection. Dry, sterile dressing is reapplied with help of nursing staff. Please continue to keep dressing clean, dry, and intact. Continue in AFO. Patient is at high risk for contralateral heel wound and only arrived with left Prevlon boot rather than off loading AFO. Please consider wedge for off loading of heels.d Laterality: right Non-pressure ulcer stage: unspecified non- pressure ulcer stage Qualified Code(s): L97.419 - Non-pressure chronic ulcer of right heel and midfoot with unspecified severity Present on Admission?: Yes (2) Fever: Patient is status post 2 days local anesthesia with monitored anesthesia care where she received a skin plasty to right heel (01/29/21). There are no signs of post operative infection at wound site. A continued diagnostic workup for her post-operative fever is warranted. Fever type: unspecified Qualified Code(s): R50.9 - Fever, unspecified Present on Admission?: Yes (3) Diabetes type 2, controlled: Chronic, well controlled. Diabetes mellitus complication status: without complication Diabetes mellitus fdc insulin use: unspecified lobsterman insulin use status Qualified Code(s): E11.9 - Type 2 diabetes mellitus without complications Present on Admission?: Yes History of Present Illness Reason for Consultation: Right heel wound Attending Physician: Lili Rodríguez DO History of Present Illness Patient is a type II diabetic, 75 year old female with partial quadriparesis who is seen at bedside this morning resting comfortably. She relates feeling much better but does state last evening developing loss of appetite chills, a fever, nausea with vomiting on the way to the [facility]. Patient developed her paraylsis September 2019 after complications undergoing C5-C7 fusion. Earlier this year while receiving care at [facility] she developed bilateral heel wounds. Patient was placed on Daptomycin 270mg IV daily due to signs of infection. Her right heel wound developed Osteomyelitis and a partial calcanectomy was performed on 01/20/21. Cultures from bone showed Pseudomonas, Morganella and ESBL E.coli. These were reviewed by Infectious Disease and Patient was placed on both IV Ertapenem and PO Levaquin. Patient then underwent delayed primary closure with skin plasty on 01/29/21 to right heel wound. Today her dressing remains intact. She is wearing Rx'd right AFO and is wearing left Prevlon boot. Allergies Allergy/AdvReac Type Severity Reaction Status Date / Time mold Allergy Unknown Verified 01/30/21 22:18 pollen extracts Allergy Unknown Verified 01/30/21 22:18 artificial sweeteners Allergy Unknown Uncoded 01/30/21 22:19 Home Medications Medication Instructions Recorded Confirmed Type Protein Powder 1 dose PO TID 01/30/21 01/30/21 History acetaminophen [Tylenol] 650 mg PO Q6 PRN 01/30/21 01/30/21 History albuterol sulfate [Proventil HFA] 2 puff INHALATION Q4 PRN 01/30/21 01/30/21 History ascorbic acid (vitamin C) [Vitamin 500 mg PO BID 01/30/21 01/30/21 History C] atorvastatin 80 mg PO QPM 01/30/21 01/30/21 History baclofen 5 mg PO BID 01/30/21 01/30/21 History baclofen 10 mg PO HS 01/30/21 01/30/21 History bisacodyl [Dulcolax (bisacodyl)] 10 mg SC UD PRN 01/30/21 01/30/21 History cyclobenzaprine 10 mg PO Q8 PRN 01/30/21 01/30/21 History ertapenem 1 g IV DAILY 01/30/21 01/30/21 History ezetimibe [Zetia] 10 mg PO DAILY 01/30/21 01/30/21 History ferrous sulfate [Iron (ferrous 325 mg PO DAILY 01/30/21 01/30/21 History sulfate)] gabapentin 100 mg PO TID 01/30/21 01/30/21 History heparin lock flush (porcine) 5 unit IV QS 01/30/21 01/30/21 History [heparin lock flush] hydroxyurea 500 mg PO BID 01/30/21 01/30/21 History insulin aspart U-100 [Novolog 0 sliding scale dose SUBCUT UD 01/30/21 01/30/21 History U-100 Insulin aspart] insulin glargine [Lantus U-100 20 unit SUBCUT QPM 01/30/21 01/30/21 History Insulin] levofloxacin 750 mg PO DAILY 01/30/21 01/30/21 History levothyroxine 125 mcg PO DAILY 01/30/21 01/30/21 History magnesium oxide 400 mg PO DAILY 01/30/21 01/30/21 History melatonin 1 mg PO HS 01/30/21 01/30/21 History metoprolol tartrate 50 mg PO Q12 01/30/21 01/30/21 History multivitamin 1 tab PO DAILY 01/30/21 01/30/21 History ondansetron HCl [Zofran] 4 mg PO Q6H PRN 01/30/21 01/30/21 History peg 400-propylene glycol [Systane 1 drp OPHTHALMIC (EYE) QPM 01/30/21 01/30/21 History Gel] polyethylene glycol 3350 [Miralax] 17 g PO DAILY 01/30/21 01/30/21 History sodium chloride 1 spray INTRANASAL Q6 PRN 01/30/21 01/30/21 History sodium chloride 0.9 % (flush) 10 ml IV QS 01/30/21 01/30/21 History [Saline Flush] zinc sulfate 220 mg PO DAILY 01/30/21 01/30/21 History Patient History Medical History Anemia CAD (coronary artery disease) Cardiomyopathy Chronic incomplete quadriplegia Depression Diabetes type 2, controlled History of DVT (deep vein thrombosis) 02/26/20 LLE History of NH (myocardial infarction) 2004 History of renal cell cancer HTN (hypertension) Hypothyroid Myelodysplasia (myelodysplastic syndrome) Neurogenic bowel Seasonal asthma Surgical History History of right nephrectomy History of thyroidectomy Social History Smoking Status: Never smoker Hx Alcohol Use: No Hx Substance Use: No Preferred Language: Armenian Communication Ability: Effective Current Living Situation: Senior Care Current Living Situation Comment: Center [facility] Feels Safe at Home: Yes Review of Systems Review of Systems: All systems reviewed & are unremarkable except as noted in HPI & below Physical Exam Eyes: normal visual storey by confrontation, + anicteric sclerae, PERRL and EOM intact bilaterally ENMT: external ear and nose normal, oropharynx normal Respiratory: normal respiratory effort Cardiovascular: Rate/Rhythm: regular rate and regular rhythm Musculoskeletal: Head/Neck/Chest: normocephalic and head atraumatic Skin: Dressing is removed from right heel. Sutures intact. Skin is well coapted. Temperature, turgor, texture within normal limits. SKin is warm, dry, and supple. No signs of infection. No drainage. Pedal pulses palpable. Capillary refill time is within normal limits. Neurologic: AA&O x 4, speech intact, no facial droop, muscular weakness in all extremities, flexion contractures present on hands and feet Results & Data ([facility]) Vital Signs (Past 12 Hours) Vital Signs Temp Pulse Pulse Resp BP BP Pulse Ox 01/31/21 01:46 36.5 C 77 18 120/67 95 01/31/21 00:30 75 19 106/53 L 93 01/31/21 00:00 78 19 112/55 L 91 01/30/21 23:41 37.1 C 01/30/21 23:30 84 21 113/55 L 95 01/30/21 23:00 82 20 120/57 L 94 01/30/21 22:45 81 23 93 01/30/21 22:30 85 21 118/62 94 01/30/21 22:15 85 23 94 01/30/21 22:00 87 22 123/59 L 93 01/30/21 21:45 91 H 21 95 01/30/21 21:31 87 21 01/30/21 21:30 88 20 115/58 L 01/30/21 21:11 38.1 C H 93 H 20 113/58 L 94 DEEP WOUND CULTURE Order: [id number] - Reflex for Order [id number] Status: Final result Visible to patient: Yes ([facility] [place] Component 11d ago Specimen Description Wound Special Requests R CALCANEOUS Gram Stain No Polys Seen No organisms seen Culture 3+ Pseudomonas aeruginosa 2+ Morganella morganii 2+ Escherichia coli ESBL Report Final Result 01/24/2021 Organism 3+ Pseudomonas aeruginosa Organism 2+ Morganella morganii Organism 2+ Escherichia coli ESBL Resulting Agency [facility] Susceptibility 2+ morganella morganii (microscan darvin-ug/ml (tomás)) 2+ escherichia coli esbl (microscan darvin-ug/ml (tomás)) Not Specified Not Specified Amoxicillin/Clavulanate >16/8 Resistant 16/8 Intermediate Ampicillin >16 Resistant >16 Resistant Ampicillin/Sulbactam <=4/2 Sensitive >16/8 Resistant Aztreonam <=4 Sensitive >16 Resistant Cefazolin >16 Resistant >16 Resistant Cefepime <=2 Sensitive >16 Resistant Cefotaxime <=2 Sensitive >32 Resistant Cefoxitin <=8 Sensitive <=8 Sensitive Ceftazidime <=1 Sensitive >16 Resistant Ceftriaxone <=1 Sensitive >32 Resistant Cefuroxime <=4 Resistant >16 Resistant Ciprofloxacin >2 Resistant >2 Resistant Ertapenem <=0.5 Sensitive <=0.5 Sensitive Gentamicin >8 Resistant <=2 Sensitive Levofloxacin 4 Resistant >4 Resistant Meropenem <=1 Sensitive <=1 Sensitive Piperacillin/Tazobactam <=8 Sensitive <=8 Sensitive Sulfa/Trimethoprim >2/38 Resistant >2/38 Resistant Tetracycline >8 Resistant >8 Resistant Susceptibility 3+ pseudomonas aeruginosa (microscan darvin-ug/ml (tomás)) Not Specified Aztreonam <=4 Sensitive Cefepime <=2 Sensitive Ceftazidime <=1 Sensitive Ciprofloxacin <=0.25 Sensitive Gentamicin <=2 Sensitive Imipenem 2 Sensitive Levofloxacin <=0.5 Sensitive Meropenem <=1 Sensitive Piperacillin/Tazobactam <=8 Sensitive Specimen Collected: 01/20/21 8:00 PM Last Resulted: 01/24/21 7:47 AM PATIENT HISTORY: PRE-OP DIAGNOSIS: right foot calcaneal osteomyelitis POST-OP DIAGNOSIS: SAME PROCEDURE: EXCISION BONE SPUR SURGICAL PATHOLOGY EXAM Order: [id number] Status: Final result Visible to patient: Yes ([facility] [place]) Narrative Performed by: [facility] FINAL DIAGNOSIS: 1. BONE, RIGHT CALCANEUS, EXCISION: -ACUTE AND CHRONIC OSTEOMYELITIS. -REACTIVE BONE FORMATION. 2. BONE, CLEAN MARGIN RIGHT CALCANEUS, BIOPSY: -REACTIVE BONE FORMATION.
[2021-01-31 07:29] LABS: BUN Creatinine Ratio 18.6 (10-20); Calcium 7.8 mg/dl (8.5-10.1); Creatinine Clr Calc Pharmacy 43.1 ml/min; Est GFR (African American) 59.9; Est GFR (Non-African American) 51.7; Potassium 3.7 mmol/L (3.5-5.1)
--- NOTE | 2021-01-31 07:35 | XRay Report ---
SINGLE VIEW CHEST CLINICAL HISTORY: Sepsis. FINDINGS: An AP, portable, supine chest radiograph is obtained. No prior studies are available for co mparison at the time of dictation. The examination is degraded by portable technique and patient rota tion. A right PICC line is in place. The cardiomediastinal silhouette is unremarkable noting atherosc lerotic calcification of the thoracic aorta. There is left basilar atelectasis. The lungs and pleural spaces are otherwise clear. No pneumothorax is seen. The skeletal structures are osteopenic. The bon y thorax is grossly intact. Fusion hardware is noted in the lower cervical spine. Surgical clips proj ect over the left apex. IMPRESSION: No active disease in the chest. ACT 112: Negative or not required by law. Electronically signed by: Flako Mcdonough M.D. 01/31/2021 7:34 AM
[2021-01-31 07:41] LABS: Folate (Folic Acid) 11.1 ng/ml (>5.38)
[2021-01-31 07:43] LABS: Anisocytosis Present; Tear Drop Cells 1+
--- NOTE | 2021-01-31 07:43 | XRay Report ---
RIGHT FOOT 3 VIEWS CLINICAL HISTORY: Postoperative infection. FINDINGS: 3 views of the right foot are obtained. No prior studies are available for comparison at th e time of dictation. The skeletal structures are heterogeneously osteopenic. There is postoperative c hange from resection of the posterior calcaneus. No acute fracture is seen. There is no radiographic evidence of bony erosion. Bony overgrowth is noted along the calcaneal resection margin and may repre sent postoperative change. Degenerative change is seen throughout the foot with a high arch. There is degenerative spurring along the dorsal aspect of the tarsal bones. Diffuse soft tissue edema is pres ent throughout the foot. A cutaneous ulceration is suggested overlying the dorsal calcaneal resection . No radiodense foreign body is identified. IMPRESSION: 1. There is postoperative change from calcaneal resection. 2. No acute fracture is seen and there is no clear radiographic evidence of osteomyelitis. 3. Diffuse soft tissue edema with a large ulceration/wound is suggested overlying the calcaneal resec tion. Clinical correlation will be required.. Electronically signed by: Flako Mcdonough M.D. 01/31/2021 7:42 AM
[2021-01-31] MEDS: ZINC SULFATE 220 MG CAPSULE PO SCH (08:54)
[2021-01-31] MEDS: METOPROLOL TARTRATE 50 MG TAB PO SCH ×2 (08:54→20:22)
[2021-01-31] MEDS: EZETIMIBE 10 MG TABLET PO SCH (08:54)
[2021-01-31] MEDS: BACLOFEN 10 MG TAB PO SCH ×3 (08:54→20:14)
[2021-01-31] MEDS: GABAPENTIN 100 MG CAP PO SCH ×3 (08:54→20:15)
[2021-01-31] MEDS: HYDROXYUREA 500 MG CAP PO SCH ×2 (08:54→22:19)
--- NOTE | 2021-01-31 08:59 | Pharmacy Report ---
Pharmacy Abx Initial Consult - Date of Service January 31, 2021 - Pharmacy Dosing Scope Date of Consult: 01/30/21 Consultation requested by: Dr. Tamie Rodríguez Pharmacy is consulted to initiate Vancomycin + Meropenem IV dosing therapy, order appropriate labs and adjust drug dose/frequency. - Subjective The patient is a 75 year old F admitted on 01/30/21 23:48 from the group home for fever. Patient had recent foot surgery by Dr. Holly podiatry. A wound culture showed multiple organisms - Pseudomonas, Morganella and ESBL E.coli Patient had been on Daptomycin 270mg IV daily. She had a skin-plasty performed to assist with wound healing. Patient was started on Ertapenem and Levofloxacin which was recommended by ID team from [facility]. - Objective Height: 5 ft 2 in Weight: 71.4 kg Vital Signs (Past 12hrs): Vital Signs Temp Pulse Pulse Resp BP BP Pulse Ox 01/31/21 07:08 36.5 C 70 16 135/79 97 01/31/21 01:46 36.5 C 77 18 120/67 95 01/31/21 00:30 75 19 106/53 L 93 01/31/21 00:00 78 19 112/55 L 91 01/30/21 23:41 37.1 C 01/30/21 23:30 84 21 113/55 L 95 01/30/21 23:00 82 20 120/57 L 94 01/30/21 22:45 81 23 93 01/30/21 22:30 85 21 118/62 94 01/30/21 22:15 85 23 94 01/30/21 22:00 87 22 123/59 L 93 01/30/21 21:45 91 H 21 95 01/30/21 21:31 87 21 01/30/21 21:30 88 20 115/58 L 01/30/21 21:11 38.1 C H 93 H 20 113/58 L 94 Lab Results (24hrs): Laboratory Tests (24 Hours) 01/31/21 01/31/21 01/30/21 06:19 06:19 21:23 WBC 11.04 H Neut # (Auto) 9.45 H Creatinine 1.06 Est Cr Clr Drug Dosing 43.1 Procalcitonin 0.23 01/30/21 01/30/21 21:23 21:23 WBC 9.24 Neut # (Auto) 8.38 H Creatinine 1.11 Est Cr Clr Drug Dosing Not Reportable Procalcitonin Micro Results: 01/30/21 22:28 Urine Culture - Pending Urine,Straight Cath 01/30/21 21:34 Aerobic Blood Culture - Pending Blood Anaerobic Blood Culture - Pending 01/30/21 21:23 Aerobic Blood Culture - Pending Blood Anaerobic Blood Culture - Pending - Risk Factors for Resistance * Resident in a group home or extended-care facility * 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 coli as well as 3+ Pseudomonas and 2+ Morganella morganii. * Antimicrobial use within the last 90 days: Daptomycin; Ertapenem; Levaquin - Assessment & Plan Assessment 75 year old F admitted with fever/sepsis, wound infection, Deep wound culture from 01/24/21 with 2+ ESBL E. coli as well as 3+ Pseudomonas and 2+ Morganella morganii. Plan Vancomycin + Meropenem for treatment of sepsis/wound infection Vancomycin IV * Estimated PK Parameters: Vd 0.7 L/kg, Dewayne 0.038 hr-1, t1/2 18hr * Loading dose: 1500 mg (21 mg/kg) * Maintenance dose: 1250 mg IV (17 mg/kg) every 24 hours * Patient meets criteria for vancomycin AUC dosing nomogram * AUC/VILLA is the preferred PK/PD target for vancomycin Target AUC/VILLA = 400-600 AUC guided dosing is effective and associated with decreased risk of nephrotoxicity * Empiric indication at this time, will order trough if duration of therapy continues Meropenem * 500mg IV q8h for CrCl 25-49ml/min Pharmacy will continue to follow and will adjust dose/frequency as necessary. Thank you.
[2021-01-31] MEDS: POLYETHYLENE (MIRALAX) 17 GM PACK PO SCH (09:14)
[2021-01-31] MEDS: INSULIN GLARGINE SOLOSTAR 100 UNITS/ML 3 ML PEN SC SCH ×2 (09:19→22:21)
[2021-01-31] MEDS ORDERED: ALBUTEROL HFA 8 GM INHALER INH ONE (09:57)
[2021-01-31] MEDS ORDERED: ALBUTEROL HFA 8 GM INHALER INH PRN (09:57)
--- NOTE | 2021-01-31 09:59 | Hospitalist Progress Note ---
Date of Service January 31, 2021 Assessment & Plan (1) Sacral wound: S/p skin plasty performed by Podiatry. Deep wound culture from 01/24/21 with 2+ ESBL E. coli as well as 3+ Pseudomonas and 2+ Morganella morganii. 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 Was on Daptomycin then Ertapenem/Levofloxacin. Febrile on arrival but does not appear toxic or septic. Lactic 1.0. Procal 0.34. ESR 45 Concern for possible bacteremia from recent procedure? * Blood cultures pending * Urine culture pending * Prior imaging last winter with sacral ulcer/cellulitis/etc and on examination today does appear to be large, approximately 7cm transverse with some oozing, purulent material * Surface wound culture to be obtained today as we were cleaning her up but note she has already been on antibiotics. * Asking wound RN to see. Will place on another bed as well * --Possible benefit from bedside wound vac * Obtaining MRI pelvis for further evaluation prior to placement of any silver which could distort imaging. +/- orthopedic consultation pending results. Procal 0.34 * Continues on Vancomycin and Meropenem - will cover her history of MRSA as well as her ESBL E. coli, Morganella and Pseudomonas isolated from wound culture * Consider ID consultation * --At [facility] and with PICC line (US Doppler pending to r/o DVT as well) and able to continue IV abx at discharge if needed * Isolation precautions - Contact - for history of ESBL as well as MRSA * Continue Vitamin C to aide in wound heeling as well as Zinc and will place orders for Boost supplementation as well * Labs in AM (2) Fever: * As above. Patient is HD stable and does not appear to be septic. * Possible from sacral wound as above * Follow cultures * Abx as above (3) Heel ulcer: * Podiatry consulted -- does not feel heel wound with infection. * further investigation into fever as above -- possible related to sacral wound (4) Hypothyroid: * Chronic. s/p thyroidectomy. Last TSH 2.69 January 25, 2021 * Continue Synthroid 125mcg po daily (5) HTN (hypertension): * Chronic. * Blood pressure stable at present, 135/79 * Continue Metoprolol 50mg po BID (6) Diabetes type 2, controlled: * Chronic. Blood sugar is well controlled * -Continue Lantus 20 mg qPM -->changed to 10u BID * -ISS * -Continue Gabapentin * BSG acceptable * Continue to monitor (7) Chronic incomplete quadriplegia: * Continue Flexeril, baclofen, gabapentin 100mg TID * Fall precautions * Aspiration precautions (8) CAD (coronary artery disease): * Chronic. Stable. No CP * Continue Atorvastatin, Zetia, Metoprolol BID (9) Anemia: * Near baseline. Hgb=8.2, Hct=24.9. Macrocytic with IET=866.5. No active bleeding suspected. * B12/folate wnl * ?ref to heme/onc at d/c? * No signs of bleeding, however hgb 7.6 on AM labs. * No CP or SOB reported * Holding off transfusion at this time * Will add iron studies to AM labs and repeat CBC * Transfuse if needed DVT Prophylaxis * Lovenox SQ Dispo: continued inpatient stay Admission and Anticipated Discharge Date Admission Date: January 30, 2021 Subjective Patient evaluated this afternoon. Doing alright. No further nausea or vomiting (initially had with her fever). No pain reported outside of chronic sacral discomfort from ulcer. Discussed will examine with nursing to be able to visualize better as this could be source for current infection given eval by Podiatry for heel ulcer without evidence of infection. She states she has been residing at [facility] recently since having issues all starting from spinal surgery last September. She states she has not been followed by wound care and is wondering if anything able to be applied. No chest pain or shortness of breath, abdominal pain, nausea or vomiting reported. No dysuria or urinary symptoms however does have a catheter present. Has a PICC line from being on antibiotics but without erythema or edema but does note some numbness/tingling to her thumb. Will obtain Doppler to r/o DVT as well. Questions/concerns addressed at this time. Review of Systems Review of Systems: All systems reviewed & are unremarkable except as noted in HPI & below Physical Exam Physical Exam: General: patient chronically ill in appearance, resting comfortably in bed, NAD, AA&O x 4 Skin: warm, dry, intact, bandage on right heel,c/d/i with boot in place Sacral ulcer with sloughing, purulent drainage noted and surrounding erythema. No obvious fluctuance or fluid pocket appreciated. Tender to palpation. HEENT: NC/AT, PERRL, EOMI, anicteric sclera, conjunctiva without injection, external ear normal to inspection and nontender, nares patent, moist mucus membranes, dentition intact, no oropharyngeal lesions, neck supple, trachea midline, no LAD, no thyromegaly, no JVD Heart: +S1/S2, regular, no m/r/g. 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 Results & Data Results & Data ([facility]) Vital Signs (Past 12 Hours) Vital Signs Temp Pulse Pulse Resp BP BP Pulse Ox 01/31/21 07:08 36.5 C 70 16 135/79 97 01/31/21 01:46 36.5 C 77 18 120/67 95 01/31/21 00:30 75 19 106/53 L 93 01/31/21 00:00 78 19 112/55 L 91 01/30/21 23:41 37.1 C 01/30/21 23:30 84 21 113/55 L 95 01/30/21 23:00 82 20 120/57 L 94 01/30/21 22:45 81 23 93 01/30/21 22:30 85 21 118/62 94 01/30/21 22:15 85 23 94 01/30/21 22:00 87 22 123/59 L 93 Laboratory Results 01/31/21 01/31/21 01/31/21 Range/Units Unknown 07:59 06:19 WBC (4.8-10.8) K/uL RBC (4.2-5.4) M/uL Hgb (12.0-16.0) g/dL Hct (37-47) % MCV (80-100) fL MCH (25-34) pg MCHC (32-36) g/dL RDW Std Deviation (36.4-46.3) fL RDW Coeff of Alicia (11.5-14.5) % Plt Count (130-400) K/uL MPV (7.4-10.4) fL Immature Gran % (Auto) % Neut % (Auto) % Lymph % (Auto) % [place] % (Auto) % Eos % (Auto) % Baso % (Auto) % Neut # (Auto) (1.4-6.5) K/uL Lymph # (Auto) (1.2-3.4) K/uL [place] # (Auto) (0.11-0.59) K/uL Eos # (Auto) (0-0.5) K/uL Baso # (Auto) (0-0.2) K/uL Immature Gran # (Auto) (0.00-0.02) K/uL Hypersegmented Neuts Anisocytosis Macrocytosis Tear Drop Cells Ovalocytes PT (9.0-12.0) Seconds INR (0.9-1.1) APTT (21.0-31.0) Seconds PTT Ratio Sodium (136-145) mmol/L Potassium (3.5-5.1) mmol/L Chloride (98-107) mmol/L Carbon Dioxide (21-32) mmol/L Anion Gap (3-11) BUN (7-18) mg/dl Creatinine (0.6-1.2) mg/dl Est Cr Clr Drug Dosing Est GFR ( Amer) Est GFR (Non-Af Amer) BUN/Creatinine Ratio (10-20) Glucose (70-99) mg/dl POC Glucose 167 H (70-99) mg/dl Lactate (0.4-2.0) mmol/L Calcium (8.5-10.1) mg/dl Magnesium (1.8-2.4) mg/dl Total Bilirubin (0.2-1) mg/dl AST (15-37) U/L ALT (12-78) U/L Alkaline Phosphatase (45-117) U/L Troponin I (0-0.045) ng/ml Total Protein (6.4-8.2) gm/dl Albumin (3.4-5.0) gm/dl Globulin (2.5-4.0) gm/dl Albumin/Globulin Ratio (0.9-2) Vitamin B12 639 (193-986) pg/ml Folate 11.10 (>5.38) ng/ml Procalcitonin (0-0.5) ng/ml Urine Color Urine Appearance (Clear) Urine pH (4.5-7.5) Ur Specific [place] (1.000-1.030) Urine Protein (Negative) Urine Glucose (UA) (Negative) Urine Ketones (Negative) Urine Blood (Negative) Urine Nitrite (Negative) Urine Bilirubin (Negative) Urine Urobilinogen (Negative) Ur Leukocyte Esterase (Negative) Urine WBC (Auto) (0-5) /hpf Urine RBC (Auto) (0-4) /hpf U Hyaline Cast (Auto) (0-5) /lpf U Epithel Cells (Auto) (0-5) /lpf Urine Bacteria (Auto) (Negative) Urine Crystals Calcium Oxalate Crystal (None Prsent) Urine Yeast (None Prsent) Nasal Screen MRSA (PCR) Negative (Negative) COVID-19 Eval Order SARS-CoV-2 (PCR) (Negative) Influenza Type A (PCR) (Neg) Influenza Type B (PCR) (Neg) RSV (RT-PCR) (Neg) 01/31/21 01/31/21 01/31/21 Range/Units 06:19 06:19 04:21 WBC 11.04 H (4.8-10.8) K/uL RBC 1.96 L (4.2-5.4) M/uL Hgb 7.6 L (12.0-16.0) g/dL Hct 23.1 L (37-47) % MCV 117.9 H (80-100) fL MCH 38.8 H (25-34) pg MCHC 32.9 (32-36) g/dL RDW Std Deviation 98.9 H (36.4-46.3) fL RDW Coeff of Alicia 23.7 H (11.5-14.5) % Plt Count 430 H (130-400) K/uL MPV 8.8 (7.4-10.4) fL Immature Gran % (Auto) 0.5 % Neut % (Auto) 85.6 % Lymph % (Auto) 9.1 % [place] % (Auto) 4.1 % Eos % (Auto) 0.5 % Baso % (Auto) 0.2 % Neut # (Auto) 9.45 H (1.4-6.5) K/uL Lymph # (Auto) 1.01 L (1.2-3.4) K/uL [place] # (Auto) 0.45 (0.11-0.59) K/uL Eos # (Auto) 0.05 (0-0.5) K/uL Baso # (Auto) 0.02 (0-0.2) K/uL Immature Gran # (Auto) 0.06 H (0.00-0.02) K/uL Hypersegmented Neuts Anisocytosis Present Macrocytosis Tear Drop Cells 1+ Ovalocytes PT (9.0-12.0) Seconds INR (0.9-1.1) APTT (21.0-31.0) Seconds PTT Ratio Sodium 139 (136-145) mmol/L Potassium 3.7 (3.5-5.1) mmol/L Chloride 107 (98-107) mmol/L Carbon Dioxide 25 (21-32) mmol/L Anion Gap 7.0 (3-11) BUN 20 H (7-18) mg/dl Creatinine 1.06 (0.6-1.2) mg/dl Est Cr Clr Drug Dosing 43.1 Est GFR ( Amer) 59.9 Est GFR (Non-Af Amer) 51.7 BUN/Creatinine Ratio 18.6 (10-20) Glucose 185 H (70-99) mg/dl POC Glucose 249 H (70-99) mg/dl Lactate (0.4-2.0) mmol/L Calcium 7.8 L (8.5-10.1) mg/dl Magnesium (1.8-2.4) mg/dl Total Bilirubin (0.2-1) mg/dl AST (15-37) U/L ALT (12-78) U/L Alkaline Phosphatase (45-117) U/L Troponin I (0-0.045) ng/ml Total Protein (6.4-8.2) gm/dl Albumin (3.4-5.0) gm/dl Globulin (2.5-4.0) gm/dl Albumin/Globulin Ratio (0.9-2) Vitamin B12 (193-986) pg/ml Folate (>5.38) ng/ml Procalcitonin (0-0.5) ng/ml Urine Color Urine Appearance (Clear) Urine pH (4.5-7.5) Ur Specific [place] (1.000-1.030) Urine Protein (Negative) Urine Glucose (UA) (Negative) Urine Ketones (Negative) Urine Blood (Negative) Urine Nitrite (Negative) Urine Bilirubin (Negative) Urine Urobilinogen (Negative) Ur Leukocyte Esterase (Negative) Urine WBC (Auto) (0-5) /hpf Urine RBC (Auto) (0-4) /hpf U Hyaline Cast (Auto) (0-5) /lpf U Epithel Cells (Auto) (0-5) /lpf Urine Bacteria (Auto) (Negative) Urine Crystals Calcium Oxalate Crystal (None Prsent) Urine Yeast (None Prsent) Nasal Screen MRSA (PCR) (Negative) COVID-19 Eval Order SARS-CoV-2 (PCR) (Negative) Influenza Type A (PCR) (Neg) Influenza Type B (PCR) (Neg) RSV (RT-PCR) (Neg) 01/30/21 01/30/21 01/30/21 Range/Units 22:28 22:28 22:28 WBC (4.8-10.8) K/uL RBC (4.2-5.4) M/uL Hgb (12.0-16.0) g/dL Hct (37-47) % MCV (80-100) fL MCH (25-34) pg MCHC (32-36) g/dL RDW Std Deviation (36.4-46.3) fL RDW Coeff of Alicia (11.5-14.5) % Plt Count (130-400) K/uL MPV (7.4-10.4) fL Immature Gran % (Auto) % Neut % (Auto) % Lymph % (Auto) % [place] % (Auto) % Eos % (Auto) % Baso % (Auto) % Neut # (Auto) (1.4-6.5) K/uL Lymph # (Auto) (1.2-3.4) K/uL [place] # (Auto) (0.11-0.59) K/uL Eos # (Auto) (0-0.5) K/uL Baso # (Auto) (0-0.2) K/uL Immature Gran # (Auto) (0.00-0.02) K/uL Hypersegmented Neuts Anisocytosis Macrocytosis Tear Drop Cells Ovalocytes PT (9.0-12.0) Seconds INR (0.9-1.1) APTT (21.0-31.0) Seconds PTT Ratio Sodium (136-145) mmol/L Potassium (3.5-5.1) mmol/L Chloride (98-107) mmol/L Carbon Dioxide (21-32) mmol/L Anion Gap (3-11) BUN (7-18) mg/dl Creatinine (0.6-1.2) mg/dl Est Cr Clr Drug Dosing Est GFR ( Amer) Est GFR (Non-Af Amer) BUN/Creatinine Ratio (10-20) Glucose (70-99) mg/dl POC Glucose (70-99) mg/dl Lactate (0.4-2.0) mmol/L Calcium (8.5-10.1) mg/dl Magnesium (1.8-2.4) mg/dl Total Bilirubin (0.2-1) mg/dl AST (15-37) U/L ALT (12-78) U/L Alkaline Phosphatase (45-117) U/L Troponin I (0-0.045) ng/ml Total Protein (6.4-8.2) gm/dl Albumin (3.4-5.0) gm/dl Globulin (2.5-4.0) gm/dl Albumin/Globulin Ratio (0.9-2) Vitamin B12 (193-986) pg/ml Folate (>5.38) ng/ml Procalcitonin (0-0.5) ng/ml Urine Color Yellow Urine Appearance Turbid A (Clear) Urine pH 7.5 (4.5-7.5) Ur Specific [place] 1.016 (1.000-1.030) Urine Protein 1+ H (Negative) Urine Glucose (UA) Negative (Negative) Urine Ketones Negative (Negative) Urine Blood Trace H (Negative) Urine Nitrite Negative (Negative) Urine Bilirubin Negative (Negative) Urine Urobilinogen Negative (Negative) Ur Leukocyte Esterase Trace H (Negative) Urine WBC (Auto) 10-30 H (0-5) /hpf Urine RBC (Auto) 5-10 H (0-4) /hpf U Hyaline Cast (Auto) 10-30 H (0-5) /lpf U Epithel Cells (Auto) >30 H (0-5) /lpf Urine Bacteria (Auto) Negative (Negative) Urine Crystals Not Reportable Calcium Oxalate Crystal Present A (None Prsent) Urine Yeast Budding w/ Hyphae A (None Prsent) Nasal Screen MRSA (PCR) (Negative) COVID-19 Eval Order CovFluRsv at [facility] SARS-CoV-2 (PCR) NEGATIVE (Negative) Influenza Type A (PCR) Negative (Neg) Influenza Type B (PCR) Negative (Neg) RSV (RT-PCR) Negative (Neg) 01/30/21 01/30/21 01/30/21 Range/Units 21:23 21:23 21:23 WBC (4.8-10.8) K/uL RBC (4.2-5.4) M/uL Hgb (12.0-16.0) g/dL Hct (37-47) % MCV (80-100) fL MCH (25-34) pg MCHC (32-36) g/dL RDW Std Deviation (36.4-46.3) fL RDW Coeff of Alicia (11.5-14.5) % Plt Count (130-400) K/uL MPV (7.4-10.4) fL Immature Gran % (Auto) % Neut % (Auto) % Lymph % (Auto) % [place] % (Auto) % Eos % (Auto) % Baso % (Auto) % Neut # (Auto) (1.4-6.5) K/uL Lymph # (Auto) (1.2-3.4) K/uL [place] # (Auto) (0.11-0.59) K/uL Eos # (Auto) (0-0.5) K/uL Baso # (Auto) (0-0.2) K/uL Immature Gran # (Auto) (0.00-0.02) K/uL Hypersegmented Neuts Anisocytosis Macrocytosis Tear Drop Cells Ovalocytes PT (9.0-12.0) Seconds INR (0.9-1.1) APTT (21.0-31.0) Seconds PTT Ratio Sodium 135 L (136-145) mmol/L Potassium 3.6 (3.5-5.1) mmol/L Chloride 101 (98-107) mmol/L Carbon Dioxide 28 (21-32) mmol/L Anion Gap 6.0 (3-11) BUN 22 H (7-18) mg/dl Creatinine 1.11 (0.6-1.2) mg/dl Est Cr Clr Drug Dosing Not Reportable Est GFR ( Amer) 56.7 Est GFR (Non-Af Amer) 48.9 BUN/Creatinine Ratio 20.1 H (10-20) Glucose 233 H (70-99) mg/dl POC Glucose (70-99) mg/dl Lactate 1.0 (0.4-2.0) mmol/L Calcium 8.3 L (8.5-10.1) mg/dl Magnesium 2.2 (1.8-2.4) mg/dl Total Bilirubin 0.8 (0.2-1) mg/dl AST 14 L (15-37) U/L ALT 13 (12-78) U/L Alkaline Phosphatase 100 (45-117) U/L Troponin I < 0.015 (0-0.045) ng/ml Total Protein 6.5 (6.4-8.2) gm/dl Albumin 2.3 L (3.4-5.0) gm/dl Globulin 4.2 H (2.5-4.0) gm/dl Albumin/Globulin Ratio 0.6 L (0.9-2) Vitamin B12 (193-986) pg/ml Folate (>5.38) ng/ml Procalcitonin 0.23 (0-0.5) ng/ml Urine Color Urine Appearance (Clear) Urine pH (4.5-7.5) Ur Specific [place] (1.000-1.030) Urine Protein (Negative) Urine Glucose (UA) (Negative) Urine Ketones (Negative) Urine Blood (Negative) Urine Nitrite (Negative) Urine Bilirubin (Negative) Urine Urobilinogen (Negative) Ur Leukocyte Esterase (Negative) Urine WBC (Auto) (0-5) /hpf Urine RBC (Auto) (0-4) /hpf U Hyaline Cast (Auto) (0-5) /lpf U Epithel Cells (Auto) (0-5) /lpf Urine Bacteria (Auto) (Negative) Urine Crystals Calcium Oxalate Crystal (None Prsent) Urine Yeast (None Prsent) Nasal Screen MRSA (PCR) (Negative) COVID-19 Eval Order SARS-CoV-2 (PCR) (Negative) Influenza Type A (PCR) (Neg) Influenza Type B (PCR) (Neg) RSV (RT-PCR) (Neg) 01/30/21 01/30/21 Range/Units 21:23 21:23 WBC 9.24 (4.8-10.8) K/uL RBC 2.12 L (4.2-5.4) M/uL Hgb 8.2 L (12.0-16.0) g/dL Hct 24.9 L (37-47) % MCV 117.5 H (80-100) fL MCH 38.7 H (25-34) pg MCHC 32.9 (32-36) g/dL RDW Std Deviation 99.1 H (36.4-46.3) fL RDW Coeff of Alicia 23.4 H (11.5-14.5) % Plt Count 439 H (130-400) K/uL MPV 8.8 (7.4-10.4) fL Immature Gran % (Auto) 0.4 % Neut % (Auto) 90.7 % Lymph % (Auto) 3.7 % [place] % (Auto) 4.8 % Eos % (Auto) 0.2 % Baso % (Auto) 0.2 % Neut # (Auto) 8.38 H (1.4-6.5) K/uL Lymph # (Auto) 0.34 L (1.2-3.4) K/uL [place] # (Auto) 0.44 (0.11-0.59) K/uL Eos # (Auto) 0.02 (0-0.5) K/uL Baso # (Auto) 0.02 (0-0.2) K/uL Immature Gran # (Auto) 0.04 H (0.00-0.02) K/uL Hypersegmented Neuts 1+ Anisocytosis Present Macrocytosis Present Tear Drop Cells Ovalocytes 1+ PT 10.9 (9.0-12.0) Seconds INR 1.1 (0.9-1.1) APTT 28.0 (21.0-31.0) Seconds PTT Ratio 1.1 Sodium (136-145) mmol/L Potassium (3.5-5.1) mmol/L Chloride (98-107) mmol/L Carbon Dioxide (21-32) mmol/L Anion Gap (3-11) BUN (7-18) mg/dl Creatinine (0.6-1.2) mg/dl Est Cr Clr Drug Dosing Est GFR ( Amer) Est GFR (Non-Af Amer) BUN/Creatinine Ratio (10-20) Glucose (70-99) mg/dl POC Glucose (70-99) mg/dl Lactate (0.4-2.0) mmol/L Calcium (8.5-10.1) mg/dl Magnesium (1.8-2.4) mg/dl Total Bilirubin (0.2-1) mg/dl AST (15-37) U/L ALT (12-78) U/L Alkaline Phosphatase (45-117) U/L Troponin I (0-0.045) ng/ml Total Protein (6.4-8.2) gm/dl Albumin (3.4-5.0) gm/dl Globulin (2.5-4.0) gm/dl Albumin/Globulin Ratio (0.9-2) Vitamin B12 (193-986) pg/ml Folate (>5.38) ng/ml Procalcitonin (0-0.5) ng/ml Urine Color Urine Appearance (Clear) Urine pH (4.5-7.5) Ur Specific [place] (1.000-1.030) Urine Protein (Negative) Urine Glucose (UA) (Negative) Urine Ketones (Negative) Urine Blood (Negative) Urine Nitrite (Negative) Urine Bilirubin (Negative) Urine Urobilinogen (Negative) Ur Leukocyte Esterase (Negative) Urine WBC (Auto) (0-5) /hpf Urine RBC (Auto) (0-4) /hpf U Hyaline Cast (Auto) (0-5) /lpf U Epithel Cells (Auto) (0-5) /lpf Urine Bacteria (Auto) (Negative) Urine Crystals Calcium Oxalate Crystal (None Prsent) Urine Yeast (None Prsent) Nasal Screen MRSA (PCR) (Negative) COVID-19 Eval Order SARS-CoV-2 (PCR) (Negative) Influenza Type A (PCR) (Neg) Influenza Type B (PCR) (Neg) RSV (RT-PCR) (Neg) PG Care Time/CCT Total # of Minutes Spent Total Time Spent with Patient: Total time spent is greater than 50% in coordination of care (as documented) at patient's floor/unit and/or counseling patient: Coding Level of Care Code 89444 Subseq Obs Care Lvl 3 Diagnoses Sacral wound S31.000A Fever R50.9 Fever type: unspecified Heel ulcer L97.419 Laterality: right Non-pressure ulcer stage: unspecified non-pressure ulcer stage Hypothyroid E03.9 Hypothyroidism type: unspecified HTN (hypertension) I10 Hypertension type: unspecified Diabetes type 2, controlled E11.9 Diabetes mellitus intermediate insulin use: unspecified intermediate insulin use status Diabetes mellitus complication status: without complication Chronic incomplete quadriplegia G82.50 CAD (coronary artery disease) I25.10 Coronary Disease-Associated Artery/Lesion type: [place] artery [place] vs. transplanted heart: [place] heart Associated angina: without angina Anemia D64.9 Anemia type: unspecified type (1) Heel ulcer Laterality: right Non-pressure ulcer stage: unspecified non-pressure ulcer stage Qualified Code(s): L97.419 - Non-pressure chronic ulcer of right heel and midfoot with unspecified severity (2) Fever Fever type: unspecified Qualified Code(s): R50.9 - Fever, unspecified (3) Hypothyroid Hypothyroidism type: unspecified Qualified Code(s): E03.9 - Hypothyroidism, unspecified (4) HTN (hypertension) Hypertension type: unspecified Qualified Code(s): I10 - Essential (primary) hypertension (5) Diabetes type 2, controlled Diabetes mellitus intermediate insulin use: unspecified intermediate insulin use status Diabetes mellitus complication status: without complication Qualified Code(s): E11.9 - Type 2 diabetes mellitus without complications (6) CAD (coronary artery disease) Coronary Disease-Associated Artery/Lesion type: [place] artery [place] vs. transplanted heart: [place] heart Associated angina: without angina Qualified Code(s): I25.10 - Atherosclerotic heart disease of [place] coronary artery without angina pectoris (7) Anemia Anemia type: unspecified type Qualified Code(s): D64.9 - Anemia, unspecified
--- NOTE | 2021-01-31 11:27 | Electrocardiogram Report ---
Test Reason : Blood Pressure : / mmHG Vent. Rate : 090 BPM Atrial Rate : 090 BPM P-R Int : 156 ms QRS Dur : 092 ms QT Int : 372 ms P-R-T Axes : 067 020 054 degrees QTc Int : 455 ms Normal sinus rhythm Possible Left atrial enlargement Borderline ECG No previous ECGs available Confirmed by Misha Estrada ([id number]) on 01/31/2021 11:27:27 AM Referred By: [facility] Confirmed By:Misha Estrada
[2021-01-31] MEDS ORDERED: NYSTATIN POWDER 15GM BTL EXT PRN (13:50)
--- NOTE | 2021-01-31 15:14 | Ultrasound Report ---
US venous doppler UE RT CLINICAL HISTORY: Right-sided PICC catheter. The heart swelling. Evaluate for DVT. COMPARISON STUDY: No previous studies for comparison. FINDINGS: No intraluminal thrombus was visualized. The internal jugular, subclavian, axillary, cephal ic, brachial, basilic, radial, and ulnar veins were patent. Intravenous PICC catheter is visualized. IMPRESSION: No evidence of right upper extremity DVT. ACT 112: Negative or not required by law. Electronically signed by: Juan Avilez M.D. 01/31/2021 3:13 PM
[2021-01-31] MEDS: MEROPENEM 500 MG in SYRINGE 0 ML IV SCH ×2 (15:28→20:08)
[2021-01-31] MEDS ORDERED: Nursing to Pharmacy Communication SCH (15:45)
[2021-01-31 16:33] LABS: Hematocrit (blood only) 24.6 % (37-47); Mean Corpuscular Hemoglobin 38.8 pg (25-34); Mean Corpuscular Hgb Conc 32.5 g/dL (32-36); Mean Corpuscular Volume 119.4 fL (80-100); Mean Platelet Volume 8.9 fL (7.4-10.4); Platelet Count 414 K/uL (130-400); RDW Coefficient of Variation 23.5 % (11.5-14.5); RDW Standard Deviation 99.8 fL (36.4-46.3); Red Blood Count 2.06 M/uL (4.2-5.4)
[2021-01-31] MEDS: ENOXAPARIN INJ 40 MG/0.4 ML SYR SQ SCH (18:10)
[2021-01-31] MEDS ORDERED: VANCOMYCIN HCL 1,250 MG in SODIUM CHLORIDE 0.9% 250 ML IV SCH (20:00)
[2021-01-31] MEDS: ARTIFICIAL TEARS OP SCH (20:16)
[2021-01-31] MEDS ORDERED: INSULIN GLARGINE SOLOSTAR 100 UNITS/ML 3 ML PEN SQ SCH (21:00)
[2021-01-31] MEDS: ATORVASTATIN 40 MG TAB PO SCH (22:19)
[2021-02-01] MEDS: LEVOTHYROXINE SODIUM 125 MCG TABLET PO SCH (05:10)
[2021-02-01] MEDS: MEROPENEM 500 MG in SYRINGE 0 ML IV SCH ×3 (05:10→21:04)
[2021-02-01 05:47] LABS: Basophils # (auto) 0.04 K/uL (0-0.2); Basophils % (auto) 0.5 %; Eosinophils # (auto) 0.16 K/uL (0-0.5); Hematocrit (blood only) 22.6 % (37-47); Hemoglobin 7.4 g/dL (12.0-16.0); Immature Granulocytes # (auto) 0.03 K/uL (0.00-0.02); Immature Granulocytes % (auto) 0.4 %; Lymphocytes % (auto) 12.8 %; Mean Corpuscular Hemoglobin 39.4 pg (25-34); Mean Corpuscular Hgb Conc 32.7 g/dL (32-36); Mean Corpuscular Volume 120.2 fL (80-100); Mean Platelet Volume 8.9 fL (7.4-10.4); Monocytes # (auto) 0.36 K/uL (0.11-0.59); Monocytes % (auto) 4.6 %; Neutrophils # (auto) 6.23 K/uL (1.4-6.5); Neutrophils % (auto) 79.7 %; Platelet Count 453 K/uL (130-400); RDW Coefficient of Variation 23.5 % (11.5-14.5); RDW Standard Deviation 102.2 fL (36.4-46.3); Red Blood Count 1.88 M/uL (4.2-5.4); White Blood Count 7.82 K/uL (4.8-10.8)
[2021-02-01 06:07] LABS: Anisocytosis Present; Macrocytosis Present; Tear Drop Cells 1+
[2021-02-01 06:16] LABS: Calcium 7.9 mg/dl (8.5-10.1); Creatinine Clr Calc Pharmacy 46.6 ml/min; Est GFR (African American) 65.9; Est GFR (Non-African American) 56.8; Potassium 3.7 mmol/L (3.5-5.1)
[2021-02-01 06:21] LABS: Albumin Globulin Ratio 0.5 (0.9-2); Bilirubin,Total 0.9 mg/dl (0.2-1); Ferritin 699.1 ng/ml (8-388); Globulin 3.8 gm/dl (2.5-4.0); Total Protein 5.8 gm/dl (6.4-8.2)
--- NOTE | 2021-02-01 08:31 | Magnetic Resonance Report ---
MR pelvis wo con CLINICAL HISTORY: sacral ulcer, ?infection/abscess/fluid collection COMPARISON STUDY: MRI of the pelvis September 03, 2020. TECHNIQUE: Utilizing a 1.5 Carmina magnet and dedicated coil, multiplanar, multiecho imaging of the pel vis was performed without intravenous contrast. FINDINGS: A cystic left adnexal lesion which contains thin septations has increased in size since MRI September 03, 2020. This now measures 6.4 x 5.2 x 5.1 cm. A [place] balloon is present within the bladde r. There are suspected small fibroids. Multifocal muscular edema is noted within the pelvis and hips. Similar findings were shown on prior MRI September 03, 2020. There is no fluid collection to suggest a n abscess. The caliber of visualized small and large bowel are normal. The sacroiliac joints and symp hysis pubis are intact. There is no hip joint effusion. Edema within the right femoral neck shown on prior MRI has slightly decreased. There is no evidence for fracture within the visualized skeletal st ructures. Sacral decubitus ulcer is again noted. There is mild subcutaneous T2 signal. There is no ma rrow edema to suggest osteomyelitis. [place] 6 is not well visualized. This represents a chronic findin g. IMPRESSION: 1. Sacral decubitus ulcer, as described above. No marrow edema to suggest osteomyelitis. 2. No fluid collection is suggest abscess within the pelvis. 3. Increase in size of an 6.4 cm left ovarian lesion which contains thin septations. This lesion is i ndeterminate and a follow-up pelvic ultrasound is recommended. ACT 112: Negative or not required by law. Electronically signed by: Maynor Gonzalez M.D. 02/01/2021 8:29 AM
[2021-02-01] MEDS: BACLOFEN 10 MG TAB PO SCH ×3 (08:55→21:07)
[2021-02-01] MEDS: METOPROLOL TARTRATE 50 MG TAB PO SCH ×2 (08:56→21:06)
[2021-02-01] MEDS: ENOXAPARIN INJ 40 MG/0.4 ML SYR SQ SCH (08:56)
[2021-02-01] MEDS: GABAPENTIN 100 MG CAP PO SCH ×3 (08:56→21:07)
[2021-02-01] MEDS: ZINC SULFATE 220 MG CAPSULE PO SCH (08:56)
[2021-02-01] MEDS: EZETIMIBE 10 MG TABLET PO SCH (08:56)
--- NOTE | 2021-02-01 09:11 | Hospitalist Progress Note ---
Date of Service February 01, 2021 Assessment & Plan (1) Sacral wound: S/p partial calcanectomy performed on 01/20 for osteo with skin plasty performed by Podiatry. Cultures from bone -- from 01/24/21 with 2+ ESBL E. coli as well as 3+ Pseudomonas and 2+ Morganella morganii. 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 Was on Daptomycin then Ertapenem/Levofloxacin prior to admission and placed on Meropenem and Vancomycin on admission Lactic 1.0. Procal 0.34. ESR 45 Febrile on arrival 38.1C but did not appear toxic or septic -- NO FURTHER FEVERS, WBC now wnl * Blood cultures pending -- NGTD * Urine culture pending -- talked with lab and appears >100,000 probably yeast but still need to do final GS/cx --> UA with budding yeast/hyphae. Likely need to give some Diflucan or other antifungal pending cx Continues on Vancomycin and Meropenem (extended coverage today) - will cover her history of MRSA as well as her ESBL E. coli, Morganella and Pseudomonas isolated from wound culture Pressure ulcer of sacral region, stage 2 Prior imaging last winter with sacral ulcer/cellulitis/etc and on examination today does appear to be large, approximately 7cm transverse with some oozing, purulent material Surface wound culture obtained 01/01 as we were cleaning her up but note she has already been on antibiotics. --> pending. prelim GS few WBC, few gram + cocci and bacilli --> follow Asking wound RN to see. Will place on another bed as well --Possible benefit from bedside wound vac --> to be placed today irrigating wound vac by wound RN MRI pelvis 01/31 for further evaluation prior to placement of any silver which could distort imaging * 1. Sacral decubitus ulcer, as described above. No marrow edema to suggest osteomyelitis. * 2. No fluid collection is suggest abscess within the pelvis. * 3. Increase in size of an 6.4 cm left ovarian lesion which contains thin septations. This lesion is indeterminate and a follow-up pelvic ultrasound is recommended. CTAP 02/01 1. Trace bilateral pleural effusions, lower lobe mucoid impaction, and basilar opacities, likely atelectatic 2. Mild splenomegaly 3. No evidence of bowel obstruction. No evidence of free air. No evidence of acute appendicitis. No evidence of acute diverticulitis 4. Redemonstration of a 6 cm cystic left adnexal mass within septations likely ovarian 5. Sacral decubitus ulcer. There is absent bone involving the proximal coccyx. This likely represents chronic sequela of osteomyelitis --> will have orthopedics review imaging today to see if concerns/intervention vs continued abx. No bone marrow edema on prior MRI 01/31 6. 16mm right adrenal nodule Does note lower lobe mucoid plugging and atelectasis (L basilar atelectasis on admission) --> could have had low grade temperature from atelectasis as well? but temp was up to 38.1C on admission, so doubt from that -- ordered incentive spirometer --> got up to 500ml 3-4x this morning with aide 93% on RA Repeat CXR if sob/hypoxia --At [place] and with PICC line (US Doppler pending to r/o DVT as well -- N EGATIVE) and able to continue IV abx at discharge if needed Isolation precautions - Contact - for history of ESBL as well as MRSA Continue Vitamin C to aide in wound heeling as well as Zinc and will place orders for Boost supplementation as well Consider ID consultation pending final cultures Labs in AM (2) Fever: * As above. Patient is HD stable and does not appear to be septic. * Possible from sacral wound as above * Follow cultures * Abx as above (3) Heel ulcer: * Podiatry consulted -- does not feel heel wound with infection. * further investigation into fever as above -- possible related to sacral wound -- see above (4) Hypothyroid: * Chronic. s/p thyroidectomy. * Last TSH 2.69 January 25, 2021 * Continue Synthroid 125mcg po daily (5) HTN (hypertension): * Chronic. * Blood pressure stable at present, 103/62 * Continue Metoprolol 50mg po BID (6) Diabetes type 2, controlled: * Chronic. Blood sugar is well controlled * -Continue Lantus 20 mg qPM -->changed to 10u BID * -ISS * -Continue Gabapentin * BSG acceptable * Continue to monitor (7) Chronic incomplete quadriplegia: * Developed paralysis Sep 2019 after complications from 5-C7 fusion in [place] where she then developed b/l heel wounds and was placed on Daptomycin IV due to possible osteo and partial calcanectomy performed on 01/20/[address] Holly as above * Continue Flexeril, baclofen (will give extra dose today for spams), gabapentin 100mg TID * Fall precautions * Aspiration precautions (8) CAD (coronary artery disease): * Chronic. Stable. No CP * Continue Atorvastatin, Zetia, Metoprolol BID (9) Anemia: * Near baseline. Hgb=8.2, Hct=24.9. Macrocytic with PRQ=115.5. No a ctive bleeding suspected. * B12/folate wnl * No signs of bleeding, however hgb 7.4 on AM labs. * No CP or SOB reported * Holding off transfusion at this time * Will add iron studies to AM labs and repeat CBC -- low normal iron. Consider supplementation increase to BID at d/c * Transfuse if needed * ?ref to heme/onc at d/c? Ovarian Lesion * Left sided, seen on imaging- larger than prior * Increase in size of an 6.4 cm left ovarian lesion which contains thin septations. This lesion is indeterminate and a follow-up pelvic ultrasound is recommended. * Discussed with patient and will have outpatient pelvic US DVT Prophylaxis * Lovenox SQ Dispo: continued inpatient stay Admission and Anticipated Discharge Date Admission Date: January 31, 2021 Subjective Patient evaluated around lunch time. Feeling better. MRI without abscess. CTA/P with some concerns for chronic osteo with coccyx area. Plans for having Dr. Lamar review film to see if area concerning. Plans for irrigating wound vac over the weekend to be placed today. Discussed ovarian lesion and will need outpt f/u for pelvic US. Patient demonstrated understanding. No fever, chills, chest pain, shortness of breath, abdominal pain,nausea or vomiting. Has been assisted with feeding and ate well for breakfast - aide bringing lunch tray in when I was leaving. Questions/concerns addressed at this time. Review of Systems 2 Review of Systems: All systems reviewed & are unremarkable except as noted in HPI & below Physical Exam Physical Exam: General: patient chronically ill in appearance, resting comfortably in bed, NAD, AA&O x 4 Skin: warm, dry, intact, bandage on right heel,c/d/i with boot in place Sacral ulcer with purulent drainage noted to dressing and surrounding erythema. No obvious fluctuance or fluid pocket appreciated. Minimally tender to palpation, decreased HEENT: NC/AT, PERRL, EOMI, anicteric sclera, conjunctiva without injection, external ear normal to inspection and nontender, nares patent, moist mucus membranes, dentition intact, no oropharyngeal lesions, neck supple, trachea midline, no LAD, no thyromegaly, no JVD Heart: +S1/S2, regular, no m/r/g. 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 Results & Data Results & Data ([facility]) Vital Signs (Past 12 Hours) Vital Signs Temp Pulse Resp BP Pulse Ox 02/01/21 08:53 36.9 C 79 16 103/62 93 01/31/21 22:53 36.9 C 71 16 96/57 L 94 Laboratory Results 02/01/21 02/01/21 02/01/21 Range/Units 08:13 05:10 05:10 WBC 7.82 (4.8-10.8) K/uL RBC 1.88 L (4.2-5.4) M/uL Hgb 7.4 L (12.0-16.0) g/dL Hct 22.6 L (37-47) % MCV 120.2 H (80-100) fL MCH 39.4 H (25-34) pg MCHC 32.7 (32-36) g/dL RDW Std Deviation 102.2 H (36.4-46.3) fL RDW Coeff of Alicia 23.5 H (11.5-14.5) % Plt Count 453 H (130-400) K/uL MPV 8.9 (7.4-10.4) fL Immature Gran % (Auto) 0.4 % Neut % (Auto) 79.7 % Lymph % (Auto) 12.8 % [place] % (Auto) 4.6 % Eos % (Auto) 2.0 % Baso % (Auto) 0.5 % Neut # (Auto) 6.23 (1.4-6.5) K/uL Lymph # (Auto) 1.00 L (1.2-3.4) K/uL [place] # (Auto) 0.36 (0.11-0.59) K/uL Eos # (Auto) 0.16 (0-0.5) K/uL Baso # (Auto) 0.04 (0-0.2) K/uL Immature Gran # (Auto) 0.03 H (0.00-0.02) K/uL Hypersegmented Neuts 1+ Anisocytosis Present Macrocytosis Present Tear Drop Cells 1+ Sodium 140 (136-145) mmol/L Potassium 3.7 (3.5-5.1) mmol/L Chloride 108 H (98-107) mmol/L Carbon Dioxide 30 (21-32) mmol/L Anion Gap 2.0 L (3-11) BUN 19 H (7-18) mg/dl Creatinine 0.98 (0.6-1.2) mg/dl Est Cr Clr Drug Dosing 46.6 ml/min Est GFR ( Amer) 65.9 Est GFR (Non-Af Amer) 56.8 BUN/Creatinine Ratio 19.0 (10-20) Glucose 101 H (70-99) mg/dl POC Glucose 115 H (70-99) mg/dl Calcium 7.9 L (8.5-10.1) mg/dl Iron 40 (35-150) mcg/dl TIBC 134 L (250-450) mcg/dl Transferrin 118 L (200-360) mg/dl Transferrin % Sat 24 (15-50) % Ferritin 699.1 H (8-388) ng/ml Total Bilirubin 0.9 (0.2-1) mg/dl AST 15 (15-37) U/L ALT 16 (12-78) U/L Alkaline Phosphatase 88 (45-117) U/L Total Protein 5.8 L (6.4-8.2) gm/dl Albumin 2.0 L (3.4-5.0) gm/dl Globulin 3.8 (2.5-4.0) gm/dl Albumin/Globulin Ratio 0.5 L (0.9-2) 01/31/21 01/31/21 01/31/21 Range/Units 22:15 20:41 16:58 WBC (4.8-10.8) K/uL RBC (4.2-5.4) M/uL Hgb (12.0-16.0) g/dL Hct (37-47) % MCV (80-100) fL MCH (25-34) pg MCHC (32-36) g/dL RDW Std Deviation (36.4-46.3) fL RDW Coeff of Alicia (11.5-14.5) % Plt Count (130-400) K/uL MPV (7.4-10.4) fL Immature Gran % (Auto) % Neut % (Auto) % Lymph % (Auto) % [place] % (Auto) % Eos % (Auto) % Baso % (Auto) % Neut # (Auto) (1.4-6.5) K/uL Lymph # (Auto) (1.2-3.4) K/uL [place] # (Auto) (0.11-0.59) K/uL Eos # (Auto) (0-0.5) K/uL Baso # (Auto) (0-0.2) K/uL Immature Gran # (Auto) (0.00-0.02) K/uL Hypersegmented Neuts Anisocytosis Macrocytosis Tear Drop Cells Sodium (136-145) mmol/L Potassium (3.5-5.1) mmol/L Chloride (98-107) mmol/L Carbon Dioxide (21-32) mmol/L Anion Gap (3-11) BUN (7-18) mg/dl Creatinine (0.6-1.2) mg/dl Est Cr Clr Drug Dosing ml/min Est GFR ( Amer) Est GFR (Non-Af Amer) BUN/Creatinine Ratio (10-20) Glucose (70-99) mg/dl POC Glucose 197 H 221 H 164 H (70-99) mg/dl Calcium (8.5-10.1) mg/dl Iron (35-150) mcg/dl TIBC (250-450) mcg/dl Transferrin (200-360) mg/dl Transferrin % Sat (15-50) % Ferritin (8-388) ng/ml Total Bilirubin (0.2-1) mg/dl AST (15-37) U/L ALT (12-78) U/L Alkaline Phosphatase (45-117) U/L Total Protein (6.4-8.2) gm/dl Albumin (3.4-5.0) gm/dl Globulin (2.5-4.0) gm/dl Albumin/Globulin Ratio (0.9-2) 01/31/21 01/31/21 01/31/21 Range/Units 16:27 11:46 06:19 WBC 8.50 (4.8-10.8) K/uL RBC 2.06 L (4.2-5.4) M/uL Hgb 8.0 L (12.0-16.0) g/dL Hct 24.6 L (37-47) % MCV 119.4 H (80-100) fL MCH 38.8 H (25-34) pg MCHC 32.5 (32-36) g/dL RDW Std Deviation 99.8 H (36.4-46.3) fL RDW Coeff of Alicia 23.5 H (11.5-14.5) % Plt Count 414 H (130-400) K/uL MPV 8.9 (7.4-10.4) fL Immature Gran % (Auto) % Neut % (Auto) % Lymph % (Auto) % [place] % (Auto) % Eos % (Auto) % Baso % (Auto) % Neut # (Auto) (1.4-6.5) K/uL Lymph # (Auto) (1.2-3.4) K/uL [place] # (Auto) (0.11-0.59) K/uL Eos # (Auto) (0-0.5) K/uL Baso # (Auto) (0-0.2) K/uL Immature Gran # (Auto) (0.00-0.02) K/uL Hypersegmented Neuts 1+ Anisocytosis Macrocytosis Tear Drop Cells Sodium (136-145) mmol/L Potassium (3.5-5.1) mmol/L Chloride (98-107) mmol/L Carbon Dioxide (21-32) mmol/L Anion Gap (3-11) BUN (7-18) mg/dl Creatinine (0.6-1.2) mg/dl Est Cr Clr Drug Dosing ml/min Est GFR ( Amer) Est GFR (Non-Af Amer) BUN/Creatinine Ratio (10-20) Glucose (70-99) mg/dl POC Glucose 147 H (70-99) mg/dl Calcium (8.5-10.1) mg/dl Iron (35-150) mcg/dl TIBC (250-450) mcg/dl Transferrin (200-360) mg/dl Transferrin % Sat (15-50) % Ferritin (8-388) ng/ml Total Bilirubin (0.2-1) mg/dl AST (15-37) U/L ALT (12-78) U/L Alkaline Phosphatase (45-117) U/L Total Protein (6.4-8.2) gm/dl Albumin (3.4-5.0) gm/dl Globulin (2.5-4.0) gm/dl Albumin/Globulin Ratio (0.9-2) Diagnostic Findings Pelvis MRI 01/31/21 13:30 MR pelvis wo con CLINICAL HISTORY: sacral ulcer, ?infection/abscess/fluid collection COMPARISON STUDY: MRI of the pelvis September 03, 2020. TECHNIQUE: Utilizing a 1.5 Carmina magnet and dedicated coil, multiplanar, multiecho imaging of the pelvis was performed without intravenous contrast. FINDINGS: A cystic left adnexal lesion which contains thin septations has increased in size since MRI September 03, 2020. This now measures 6.4 x 5.2 x 5.1 cm. A [place] balloon is present within the bladder. There are suspected small fibroids. Multifocal muscular edema is noted within the pelvis and hips. Similar findings were shown on prior MRI September 03, 2020. There is no fluid collection to suggest an abscess. The caliber of visualized small and large bowel are normal. The sacroiliac joints and symphysis pubis are intact. There is no hip joint effusion. Edema within the right femoral neck shown on prior MRI has slightly decreased. There is no evidence for fracture within the visualized skeletal structures. Sacral decubitus ulcer is again noted. There is mild subcutaneous T2 signal. There is no marrow edema to suggest osteomyelitis. [place] 6 is not well visualized. This represents a chronic finding. IMPRESSION: 1. Sacral decubitus ulcer, as described above. No marrow edema to suggest osteomyelitis. 2. No fluid collection is suggest abscess within the pelvis. 3. Increase in size of an 6.4 cm left ovarian lesion which contains thin septations. This lesion is indeterminate and a follow-up pelvic ultrasound is recommended. ACT 112: Negative or not required by law. Electronically signed by: Maynor Gonzalez M.D. 02/01/2021 8:29 AM Venous Doppler Study 01/31/21 14:30 US venous doppler UE RT CLINICAL HISTORY: Right-sided PICC catheter. The heart swelling. Evaluate for DVT. COMPARISON STUDY: No previous studies for comparison. FINDINGS: No intraluminal thrombus was visualized. The internal jugular, subclavian, axillary, cephalic, brachial, basilic, radial, and ulnar veins were patent. Intravenous PICC catheter is visualized. IMPRESSION: No evidence of right upper extremity DVT. ACT 112: Negative or not required by law. Electronically signed by: Juan Avilez M.D. 01/31/2021 3:13 PM Abdomen/Pelvis CT 02/01/21 09:39 CT abd pelvis IV con only CLINICAL HISTORY: Fever with unknown source. COMPARISON STUDY: MRI the pelvis dated 01/31/2021. TECHNIQUE: Patient was scanned in a dynamic helical fashion during intravenous administration of 91 cc of Optiray 320 A dose lowering technique was utilized adhering to the principles of ALARA. CT DOSE: 885.10 mGy.cm FINDINGS: Lower chest: There are trace bilateral pleural effusions. There is lower lobe mucoid impaction. There are basilar opacities, likely atelectatic. Liver: The contrast-enhanced liver is normal in size, contour, and attenuation. There is no intrahepatic biliary ductal dilatation. The hepatic veins and portal veins are patent. Gallbladder: Surgically absent Spleen: Mildly enlarged measuring 13 cm Pancreas: Unremarkable. Adrenal glands: There is 16mm indeterminate right adrenal nodule. Kidneys: The right kidney is surgically absent. No solid renal masses are visualized. There is no hydronephrosis Bowel: The colon is somewhat redundant. There are fluid-filled loops of colon and small bowel. There are no findings to indicate a bowel obstruction. The appendix appears normal. There is no evidence of acute diverticulitis. Peritoneum: There is no intraperitoneal free air or abdominal ascites. Vasculature: The abdominal aorta is normal in course and caliber. Adenopathy: None. Pelvic viscera: There is an indwelling [place] catheter. There is a cystic 6 cm left adnexal mass with thin septations, likely ovarian. Skeletal structures: There is a sacral decubitus ulcer. There is absent bone involving the proximal coccyx. There is no permeative pattern. There is no bone marrow edema on the prior MRI. This likely represents the chronic sequela of osteomyelitis. IMPRESSION: 1. Trace bilateral pleural effusions, lower lobe mucoid impaction, and basilar opacities, likely atelectatic 2. Mild splenomegaly 3. No evidence of bowel obstruction. No evidence of free air. No evidence of acute appendicitis. No evidence of acute diverticulitis 4. Redemonstration of a 6 cm cystic left adnexal mass within septations likely ovarian 5. Sacral decubitus ulcer. There is absent bone involving the proximal coccyx. This likely represents chronic sequela of osteomyelitis 6. 16mm right adrenal nodule ACT 112: Negative or not required by law. Electronically signed by: Juan Avilez M.D. 02/01/2021 10:51 AM PG Care Time/CCT Total # of Minutes Spent Total Time Spent with Patient: Total time spent is greater than 50% in coordination of care (as documented) at patient's floor/unit and/or counseling patient: Coding Level of Care Code 72495 Subseq Hosp Care Lvl 3 Diagnoses Sacral wound S31.000A Fever R50.9 Fever type: unspecified Heel ulcer L97.419 Laterality: right Non-pressure ulcer stage: unspecified non-pressure ulcer stage Hypothyroid E03.9 Hypothyroidism type: unspecified HTN (hypertension) I10 Hypertension type: unspecified Diabetes type 2, controlled E11.9 Diabetes mellitus complication status: without complication Diabetes mellitus emt intermediate insulin use: unspecified shelter insulin use status Chronic incomplete quadriplegia G82.50 CAD (coronary artery disease) I25.10 Associated angina: without angina Coronary Disease-Associated Artery/Lesion type: [place] artery [place] vs. transplanted heart: [place] heart Anemia D64.9 Anemia type: unspecified type (1) Fever Fever type: unspecified Qualified Code(s): R50.9 - Fever, unspecified (2) CAD (coronary artery disease) Associated angina: without angina Coronary Disease-Associated Artery/Lesion type: [place] artery [place] vs. transplanted heart: [place] heart Qualified Code(s): I25.10 - Atherosclerotic heart disease of [place] coronary artery without angina pectoris (3) Anemia Anemia type: unspecified type Qualified Code(s): D64.9 - Anemia, unspecified (4) Heel ulcer Laterality: right Non-pressure ulcer stage: unspecified non-pressure ulcer stage Qualified Code(s): L97.419 - Non-pressure chronic ulcer of right heel and midfoot with unspecified severity (5) Hypothyroid Hypothyroidism type: unspecified Qualified Code(s): E03.9 - Hypothyroidism, unspecified (6) Diabetes type 2, controlled Diabetes mellitus complication status: without complication Diabetes mellitus shelter insulin use: unspecified emt intermediate insulin use status Qualified Code(s): E11.9 - Type 2 diabetes mellitus without complications (7) HTN (hypertension) Hypertension type: unspecified Qualified Code(s): I10 - Essential (primary) hypertension
[2021-02-01] MEDS: INSULIN ASPART 100 UNITS/ML 3 ML PEN SC SCH ×5 (09:30→21:08)
[2021-02-01] MEDS: INSULIN GLARGINE SOLOSTAR 100 UNITS/ML 3 ML PEN SC SCH ×2 (09:30→21:08)
[2021-02-01] MEDS: HYDROXYUREA 500 MG CAP PO SCH ×2 (09:31→21:05)
[2021-02-01] MEDS: POLYETHYLENE (MIRALAX) 17 GM PACK PO SCH (09:32)
[2021-02-01] MEDS: VANCOMYCIN HCL 750 MG in SODIUM CHLORIDE 0.9% 250 ML IV SCH ×2 (09:32→21:08)
[2021-02-01] MEDS ORDERED: OPTIRAY 300 100mL IV ONE (10:08)
--- NOTE | 2021-02-01 10:52 | CT Scan Report ---
CT abd pelvis IV con only CLINICAL HISTORY: Fever with unknown source. COMPARISON STUDY: MRI the pelvis dated 01/31/2021. TECHNIQUE: Patient was scanned in a dynamic helical fashion during intravenous administration of 91 c c of Optiray 320 A dose lowering technique was utilized adhering to the principles of ALARA. CT DOSE: 885.10 mGy.cm FINDINGS: Lower chest: There are trace bilateral pleural effusions. There is lower lobe mucoid impaction. There are basilar opacities, likely atelectatic. Liver: The contrast-enhanced liver is normal in size, contour, and attenuation. There is no intrahepa tic biliary ductal dilatation. The hepatic veins and portal veins are patent. Gallbladder: Surgically absent Spleen: Mildly enlarged measuring 13 cm Pancreas: Unremarkable. Adrenal glands: There is 16mm indeterminate right adrenal nodule. Kidneys: The right kidney is surgically absent. No solid renal masses are visualized. There is no hyd ronephrosis Bowel: The colon is somewhat redundant. There are fluid-filled loops of colon and small bowel. There are no findings to indicate a bowel obstruction. The appendix appears normal. There is no evidence of acute diverticulitis. Peritoneum: There is no intraperitoneal free air or abdominal ascites. Vasculature: The abdominal aorta is normal in course and caliber. Adenopathy: None. Pelvic viscera: There is an indwelling [place] catheter. There is a cystic 6 cm left adnexal mass with thin septations, likely ovarian. Skeletal structures: There is a sacral decubitus ulcer. There is absent bone involving the proximal c occyx. There is no permeative pattern. There is no bone marrow edema on the prior MRI. This likely re presents the chronic sequela of osteomyelitis. IMPRESSION: 1. Trace bilateral pleural effusions, lower lobe mucoid impaction, and basilar opacities, likely atel ectatic 2. Mild splenomegaly 3. No evidence of bowel obstruction. No evidence of free air. No evidence of acute appendicitis. No e vidence of acute diverticulitis 4. Redemonstration of a 6 cm cystic left adnexal mass within septations likely ovarian 5. Sacral decubitus ulcer. There is absent bone involving the proximal coccyx. This likely represents chronic sequela of osteomyelitis 6. 16mm right adrenal nodule ACT 112: Negative or not required by law. Electronically signed by: Juan Avilez M.D. 02/01/2021 10:51 AM
[2021-02-01] MEDS ORDERED: BACLOFEN 10 MG TAB PO ONE (12:52)
[2021-02-01] MEDS: FLUCONAZOLE 100 MG TAB PO SCH (17:55)
[2021-02-01] MEDS: ATORVASTATIN 40 MG TAB PO SCH (21:06)
[2021-02-01] MEDS: ARTIFICIAL TEARS OP SCH (21:07)
[2021-02-02] MEDS: MEROPENEM 500 MG in SYRINGE 0 ML IV SCH (03:37)
[2021-02-02 05:47] LABS: Basophils # (auto) 0.03 K/uL (0-0.2); Basophils % (auto) 0.4 %; Eosinophils # (auto) 0.12 K/uL (0-0.5); Eosinophils % (auto) 1.7 %; Hematocrit (blood only) 23.6 % (37-47); Hemoglobin 7.7 g/dL (12.0-16.0); Immature Granulocytes # (auto) 0.05 K/uL (0.00-0.02); Immature Granulocytes % (auto) 0.7 %; Lymphocytes # (auto) 0.81 K/uL (1.2-3.4); Lymphocytes % (auto) 11.7 %; Mean Corpuscular Hemoglobin 39.3 pg (25-34); Mean Corpuscular Hgb Conc 32.6 g/dL (32-36); Mean Corpuscular Volume 120.4 fL (80-100); Mean Platelet Volume 8.9 fL (7.4-10.4); Monocytes # (auto) 0.32 K/uL (0.11-0.59); Monocytes % (auto) 4.6 %; Neutrophils # (auto) 5.57 K/uL (1.4-6.5); Neutrophils % (auto) 80.9 %; Platelet Count 417 K/uL (130-400); RDW Coefficient of Variation 23.8 % (11.5-14.5); RDW Standard Deviation 101.9 fL (36.4-46.3); Red Blood Count 1.96 M/uL (4.2-5.4)
[2021-02-02] MEDS: LEVOTHYROXINE SODIUM 125 MCG TABLET PO SCH (06:08)
[2021-02-02 06:11] LABS: Anisocytosis Present; Macrocytosis Present
[2021-02-02 06:16] LABS: Albumin Level 2.1 gm/dl (3.4-5.0); Calcium 7.9 mg/dl (8.5-10.1); Creatinine Clr Calc Pharmacy 43.5 ml/min; Est GFR (African American) 60.6; Est GFR (Non-African American) 52.3; Potassium 3.8 mmol/L (3.5-5.1)
[2021-02-02 06:19] LABS: Albumin Globulin Ratio 0.5 (0.9-2); Bilirubin,Total 0.9 mg/dl (0.2-1); Globulin 3.9 gm/dl (2.5-4.0)
--- NOTE | 2021-02-02 09:25 | Hospitalist Progress Note ---
Date of Service February 02, 2021 Assessment & Plan (1) Sacral wound: Pressure ulcer of sacral region, stage 2 Prior imaging last winter with sacral ulcer/cellulitis/etc and on examination today does appear to be large, approximately 7cm transverse with some oozing, purulent material Surface wound culture obtained 01/01 as we were cleaning her up but note she has already been on antibiotics. MRI pelvis 01/31 for further evaluation prior to placement of any silver which could distort imaging * 1. Sacral decubitus ulcer, as described above. No marrow edema to suggest osteomyelitis. * 2. No fluid collection is suggest abscess within the pelvis. * 3. Increase in size of an 6.4 cm left ovarian lesion which contains thin septations. This lesion is indeterminate and a follow-up pelvic ultrasound is recommended. (WILL NEED F/U AND WAS DISCUSSED W PATIENT 02/01) CTAP 02/01 * 1. Trace bilateral pleural effusions, lower lobe mucoid impaction, and basilar opacities, likely atelectatic * 2. Mild splenomegaly * 3. No evidence of bowel obstruction. No evidence of free air. No evidence of acute appendicitis. No evidence of acute diverticulitis * 4. Redemonstration of a 6 cm cystic left adnexal mass within septations likely ovarian * 5. Sacral decubitus ulcer. There is absent bone involving the proximal coccyx. This likely represents chronic sequela of osteomyelitis * --> will have orthopedics review imaging today to see if concerns/intervention vs continued abx. No bone marrow edema on prior MRI 01/31 * 6. 16mm right adrenal nodule Vancomycin and Meropenem but switched back to prior regimen until confirmed length/duration given no infxn currently to heel. Per records from [facility] --> Patient completed abx on 01/24 for R heel OM BLOOD CULTURES NGTD 48 HOURS DISCONTINUE ABX TODAY GIVEN INCREASED DELIRIUM (IMPROVING BY AFTERNOON) --> no increased focal deficits to her chronic paraplegia. Speech intact. AOx3 Sacral Wound Cx --> SUHAIL ALBICANS --> Placed irrigating wound vac on 02/01 and to be changed Thursday URINE CX ALSO WITH SAME --> spoke with Pharmacy and placed on Fluconazole 200mg daily for 7 days Continue Vitamin C to aide in wound heeling as well as Zinc and will place orders for Boost supplementation as well Consider ID consultation pending final cultures hbg low --Iron (low normal). 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 May need transfusion if continues to be low but has been asymptomatic). Continue to monitor labs/replacement electrolytes as needed (2) Fever: * As above. Patient is HD stable and does not appear to be septic. * See above (3) Heel ulcer: * S/p partial calcanectomy performed on 01/20 for osteo with skin plasty performed by Podiatry. * Cultures from bone -- from 01/24/21 with 2+ ESBL E. coli as well as 3+ Pseudomonas and 2+ Morganella morganii. 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 * Was on Daptomycin then Ertapenem/Levofloxacin prior to admission (COMPLETED 01/24) and placed on Meropenem and Vancomycin on admission * Lactic 1.0. Procal 0.34. ESR 45 * Febrile on arrival 38.1C but did not appear toxic or septic -- NO FURTHER FEVERS, WBC now wnl * Podiatry consulted -- does not feel heel wound with infection. * Follow up with podiatry as previously scheduled (4) Hypothyroid: * Chronic. s/p thyroidectomy. * Last TSH 2.69 January 25, 2021 * Continue Synthroid 125mcg po daily (5) HTN (hypertension): * Chronic. * Blood pressure stable at present, 148/63 * Continue Metoprolol 50mg po BID (6) Diabetes type 2, controlled: * Chronic. Blood sugar is well controlled * -Continue Lantus 20 mg qPM -->changed to 10u BID * -ISS * -Continue Gabapentin * BSG acceptable * Continue to monitor (7) Chronic incomplete quadriplegia: * Developed paralysis Sep 2019 after complications from 5-C7 fusion in [place] where she then developed b/l heel wounds and was placed on Daptomycin IV due to possible osteo and partial calcanectomy performed on 01/20/[address] Holly as above * Continue Flexeril, baclofen (given extra dose 02/01 which could contribute to increased delirium but suspect from abx), gabapentin 100mg TID * Fall precautions * Aspiration precautions (8) CAD (coronary artery disease): * Chronic. Stable. No CP * Continue Atorvastatin, Zetia, Metoprolol BID (9) Anemia: * Near baseline. Hgb=8.2, Hct=24.9. Macrocytic with LMA=858.5. No active bleeding suspected. * B12/folate wnl * No signs of bleeding, however hgb 7.7 on AM labs. * No CP or SOB reported * Holding off transfusion at this time * low normal iron. Consider supplementation increase to BID at d/c * Transfuse if needed -- hx MDS and follows heme/onc outside facility in past Ovarian Lesion * Left sided, seen on imaging- larger than prior * Increase in size of an 6.4 cm left ovarian lesion which contains thin septations. This lesion is indeterminate and a follow-up pelvic ultrasound is recommended. * Discussed with patient and will have outpatient pelvic US DVT Prophylaxis * Lovenox SQ Dispo: continued inpatient stay Admission and Anticipated Discharge Date Admission Date: January 31, 2021 Subjective Patient evaluated this afternoon. Increased confusion this morning compared to prior day. Patient stated she feeling dizzy when walking today but was aware she does not walk when I questioned her. She states she knows this but it "felt like she had been walking". Endorses feeling like she had seen things overnight and children in room with her to RN but did not mention this to myself. Noted this could be related to medication/antibiotics or baclofen given yesterday as her daughter Anna said she is very sensitive to medication. She has also not had good sleep in the past two days and will order melatonin for tonight. No fever, chills, chest pain, shortness of breath, abdominal pain, nausea at this time. Discussed with CM -- patient completed prior abx on 01/24 and was not on any at time of admission. Blood cultures NGTD after 48 hours and will d/c abx but continue diflucan for suhail infection. Questions/concerns addressed. Updated daughter Anna this AM -- she has contacted O several times regarding care at facility (lives in [place]). Review of Systems Review of Systems: All systems reviewed & are unremarkable except as noted in HPI & below Physical Exam Physical Exam: General: patient chronically ill in appearance, resting comfortably on her left side in bed, NAD, AA&O x 3 but thought initially in [place] [facility]. States she felt like she was walking earlier and feeling dizzy/lightheaded. Skin: warm, dry, intact, bandage on right heel,c/d/i with boot in place Sacral ulcer with irrigating wound vac intact HEENT: NC/AT, PERRL, EOMI, anicteric sclera, conjunctiva without injection, external ear normal to inspection and nontender, nares patent, moist mucus membranes, dentition intact, no oropharyngeal lesions, neck supple, trachea midline, no LAD, no thyromegaly, no JVD Heart: +S1/S2, regular, no m/r/g. PICC line to RUE Lungs: equal air entry bilaterally, no rales/rhonchi/wheezes Abd: +BS, soft, NT/ND, no masses/organomegaly/ascites :[place] catheter with clear yellow urine draining Ext: warm, palpable pulses, no edema Neuro: AA&O x 4, speech intact, no facial droop, muscular weakness in all extremities, flexion contractures present on hands and feet neuropathy to b/l feet Results & Data Results & Data ([facility]) Vital Signs (Past 12 Hours) Vital Signs Temp Pulse Resp BP Pulse Ox 02/02/21 08:32 36.6 C 67 18 148/63 H 93 02/01/21 22:39 36.9 C 70 16 120/70 94 Laboratory Results 02/02/21 02/02/21 02/02/21 Range/Units 08:42 08:28 05:26 WBC (4.8-10.8) K/uL RBC (4.2-5.4) M/uL Hgb (12.0-16.0) g/dL Hct (37-47) % MCV (80-100) fL MCH (25-34) pg MCHC (32-36) g/dL RDW Std Deviation (36.4-46.3) fL RDW Coeff of Alicia (11.5-14.5) % Plt Count (130-400) K/uL MPV (7.4-10.4) fL Immature Gran % (Auto) % Neut % (Auto) % Lymph % (Auto) % Faulk % (Auto) % Eos % (Auto) % Baso % (Auto) % Neut # (Auto) (1.4-6.5) K/uL Lymph # (Auto) (1.2-3.4) K/uL Faulk # (Auto) (0.11-0.59) K/uL Eos # (Auto) (0-0.5) K/uL Baso # (Auto) (0-0.2) K/uL Immature Gran # (Auto) (0.00-0.02) K/uL Hypersegmented Neuts Anisocytosis Macrocytosis Sodium 141 (136-145) mmol/L Potassium 3.8 (3.5-5.1) mmol/L Chloride 109 H (98-107) mmol/L Carbon Dioxide 28 (21-32) mmol/L Anion Gap 4.0 (3-11) BUN 18 (7-18) mg/dl Creatinine 1.05 (0.6-1.2) mg/dl Est Cr Clr Drug Dosing 43.5 ml/min Est GFR ( Amer) 60.6 Est GFR (Non-Af Amer) 52.3 BUN/Creatinine Ratio 17.0 (10-20) Glucose 128 H (70-99) mg/dl POC Glucose 129 H (70-99) mg/dl Calcium 7.9 L (8.5-10.1) mg/dl Total Bilirubin 0.9 (0.2-1) mg/dl AST 16 (15-37) U/L ALT 17 (12-78) U/L Alkaline Phosphatase 89 (45-117) U/L Total Protein 6.0 L (6.4-8.2) gm/dl Albumin 2.1 L (3.4-5.0) gm/dl Globulin 3.9 (2.5-4.0) gm/dl Albumin/Globulin Ratio 0.5 L (0.9-2) Vancomycin Trough Pending 02/02/21 02/01/21 02/01/21 Range/Units 05:26 20:33 17:06 WBC 6.90 (4.8-10.8) K/uL RBC 1.96 L (4.2-5.4) M/uL Hgb 7.7 L (12.0-16.0) g/dL Hct 23.6 L (37-47) % MCV 120.4 H (80-100) fL MCH 39.3 H (25-34) pg MCHC 32.6 (32-36) g/dL RDW Std Deviation 101.9 H (36.4-46.3) fL RDW Coeff of Alicia 23.8 H (11.5-14.5) % Plt Count 417 H (130-400) K/uL MPV 8.9 (7.4-10.4) fL Immature Gran % (Auto) 0.7 % Neut % (Auto) 80.9 % Lymph % (Auto) 11.7 % Faulk % (Auto) 4.6 % Eos % (Auto) 1.7 % Baso % (Auto) 0.4 % Neut # (Auto) 5.57 (1.4-6.5) K/uL Lymph # (Auto) 0.81 L (1.2-3.4) K/uL Faulk # (Auto) 0.32 (0.11-0.59) K/uL Eos # (Auto) 0.12 (0-0.5) K/uL Baso # (Auto) 0.03 (0-0.2) K/uL Immature Gran # (Auto) 0.05 H (0.00-0.02) K/uL Hypersegmented Neuts 1+ Anisocytosis Present Macrocytosis Present Sodium (136-145) mmol/L Potassium (3.5-5.1) mmol/L Chloride (98-107) mmol/L Carbon Dioxide (21-32) mmol/L Anion Gap (3-11) BUN (7-18) mg/dl Creatinine (0.6-1.2) mg/dl Est Cr Clr Drug Dosing ml/min Est GFR ( Amer) Est GFR (Non-Af Amer) BUN/Creatinine Ratio (10-20) Glucose (70-99) mg/dl POC Glucose 143 H 126 H (70-99) mg/dl Calcium (8.5-10.1) mg/dl Total Bilirubin (0.2-1) mg/dl AST (15-37) U/L ALT (12-78) U/L Alkaline Phosphatase (45-117) U/L Total Protein (6.4-8.2) gm/dl Albumin (3.4-5.0) gm/dl Globulin (2.5-4.0) gm/dl Albumin/Globulin Ratio (0.9-2) Vancomycin Trough 02/01/21 Range/Units 12:37 WBC (4.8-10.8) K/uL RBC (4.2-5.4) M/uL Hgb (12.0-16.0) g/dL Hct (37-47) % MCV (80-100) fL MCH (25-34) pg MCHC (32-36) g/dL RDW Std Deviation (36.4-46.3) fL RDW Coeff of Alicia (11.5-14.5) % Plt Count (130-400) K/uL MPV (7.4-10.4) fL Immature Gran % (Auto) % Neut % (Auto) % Lymph % (Auto) % Faulk % (Auto) % Eos % (Auto) % Baso % (Auto) % Neut # (Auto) (1.4-6.5) K/uL Lymph # (Auto) (1.2-3.4) K/uL Faulk # (Auto) (0.11-0.59) K/uL Eos # (Auto) (0-0.5) K/uL Baso # (Auto) (0-0.2) K/uL Immature Gran # (Auto) (0.00-0.02) K/uL Hypersegmented Neuts Anisocytosis Macrocytosis Sodium (136-145) mmol/L Potassium (3.5-5.1) mmol/L Chloride (98-107) mmol/L Carbon Dioxide (21-32) mmol/L Anion Gap (3-11) BUN (7-18) mg/dl Creatinine (0.6-1.2) mg/dl Est Cr Clr Drug Dosing ml/min Est GFR ( Amer) Est GFR (Non-Af Amer) BUN/Creatinine Ratio (10-20) Glucose (70-99) mg/dl POC Glucose 176 H (70-99) mg/dl Calcium (8.5-10.1) mg/dl Total Bilirubin (0.2-1) mg/dl AST (15-37) U/L ALT (12-78) U/L Alkaline Phosphatase (45-117) U/L Total Protein (6.4-8.2) gm/dl Albumin (3.4-5.0) gm/dl Globulin (2.5-4.0) gm/dl Albumin/Globulin Ratio (0.9-2) Vancomycin Trough Diagnostic Findings Abdomen/Pelvis CT 02/01/21 09:39 CT abd pelvis IV con only CLINICAL HISTORY: Fever with unknown source. COMPARISON STUDY: MRI the pelvis dated 01/31/2021. TECHNIQUE: Patient was scanned in a dynamic helical fashion during intravenous administration of 91 cc of Optiray 320 A dose lowering technique was utilized adhering to the principles of ALARA. CT DOSE: 885.10 mGy.cm FINDINGS: Lower chest: There are trace bilateral pleural effusions. There is lower lobe mucoid impaction. There are basilar opacities, likely atelectatic. Liver: The contrast-enhanced liver is normal in size, contour, and attenuation. There is no intrahepatic biliary ductal dilatation. The hepatic veins and portal veins are patent. Gallbladder: Surgically absent Spleen: Mildly enlarged measuring 13 cm Pancreas: Unremarkable. Adrenal glands: There is 16mm indeterminate right adrenal nodule. Kidneys: The right kidney is surgically absent. No solid renal masses are vi sualized. There is no hydronephrosis Bowel: The colon is somewhat redundant. There are fluid-filled loops of colon and small bowel. There are no findings to indicate a bowel obstruction. The appendix appears normal. There is no evidence of acute diverticulitis. Peritoneum: There is no intraperitoneal free air or abdominal ascites. Vasculature: The abdominal aorta is normal in course and caliber. Adenopathy: None. Pelvic viscera: There is an indwelling [place] catheter. There is a cystic 6 cm left adnexal mass with thin septations, likely ovarian. Skeletal structures: There is a sacral decubitus ulcer. There is absent bone involving the proximal coccyx. There is no permeative pattern. There is no bone marrow edema on the prior MRI. This likely represents the chronic sequela of ost eomyelitis. IMPRESSION: 1. Trace bilateral pleural effusions, lower lobe mucoid impaction, and basilar opacities, likely atelectatic 2. Mild splenomegaly 3. No evidence of bowel obstruction. No evidence of free air. No evidence of acute appendicitis. No evidence of acute diverticulitis 4. Redemonstration of a 6 cm cystic left adnexal mass within septations likely ovarian 5. Sacral decubitus ulcer. There is absent bone involving the proximal coccyx. This likely represents chronic sequela of osteomyelitis 6. 16mm right adrenal nodule ACT 112: Negative or not required by law. Electronically signed by: Juan Avilez M.D. 02/01/2021 10:51 AM PG Care Time/CCT Total # of Minutes Spent Total Time Spent with Patient: Total time spent is greater than 50% in coordination of care (as documented) at patient's floor/unit and/or counseling patient: Coding Level of Care Code 94645 Subseq Hosp Care Lvl 3 Diagnoses Sacral wound S31.000A Fever R50.9 Fever type: unspecified Heel ulcer L97.419 Laterality: right Non-pressure ulcer stage: unspecified non-pressure ulcer stage Hypothyroid E03.9 Hypothyroidism type: unspecified HTN (hypertension) I10 Hypertension type: unspecified Diabetes type 2, controlled E11.9 Diabetes mellitus technician terminal and repeater insulin use: unspecified technician terminal and repeater insulin use status Diabetes mellitus complication status: without complication Chronic incomplete quadriplegia G82.50 CAD (coronary artery disease) I25.10 Coronary Disease-Associated Artery/Lesion type: [place] artery [place] vs. transplanted heart: [place] heart Associated angina: without angina Anemia D64.9 Anemia type: unspecified type (1) Fever Fever type: unspecified Qualified Code(s): R50.9 - Fever, unspecified (2) Heel ulcer Laterality: right Non-pressure ulcer stage: unspecified non-pressure ulcer stage Qualified Code(s): L97.419 - Non-pressure chronic ulcer of right heel and midfoot with unspecified severity (3) Hypothyroid Hypothyroidism type: unspecified Qualified Code(s): E03.9 - Hypothyroidism, unspecified (4) HTN (hypertension) Hypertension type: unspecified Qualified Code(s): I10 - Essential (primary) hypertension (5) Diabetes type 2, controlled Diabetes mellitus technician terminal and repeater insulin use: unspecified senior care insulin use status Diabetes mellitus complication status: without complication Qualified Code(s): E11.9 - Type 2 diabetes mellitus without complications (6) CAD (coronary artery disease) Coronary Disease-Associated Artery/Lesion type: [place] artery [place] vs. transplanted heart: [place] heart Associated angina: without angina Qualified Code(s): I25.10 - Atherosclerotic heart disease of [place] coronary artery without angina pectoris (7) Anemia Anemia type: unspecified type Qualified Code(s): D64.9 - Anemia, unspecified
[2021-02-02] MEDS: EZETIMIBE 10 MG TABLET PO SCH (09:28)
[2021-02-02] MEDS: GABAPENTIN 100 MG CAP PO SCH ×3 (09:28→22:02)
[2021-02-02] MEDS: FLUCONAZOLE 100 MG TAB PO SCH (09:29)
[2021-02-02] MEDS: BACLOFEN 10 MG TAB PO SCH ×3 (09:29→22:02)
[2021-02-02] MEDS: ZINC SULFATE 220 MG CAPSULE PO SCH (09:29)
[2021-02-02] MEDS: ENOXAPARIN INJ 40 MG/0.4 ML SYR SQ SCH (09:30)
[2021-02-02] MEDS: METOPROLOL TARTRATE 50 MG TAB PO SCH ×2 (09:30→22:01)
[2021-02-02] MEDS: HYDROXYUREA 500 MG CAP PO SCH ×2 (09:31→22:01)
[2021-02-02] MEDS: INSULIN ASPART 100 UNITS/ML 3 ML PEN SC SCH ×4 (09:33→22:02)
[2021-02-02] MEDS: INSULIN GLARGINE SOLOSTAR 100 UNITS/ML 3 ML PEN SC SCH ×2 (09:33→22:06)
[2021-02-02] MEDS ORDERED: ERTAPENEM SODIUM 1,000 MG in SODIUM CHLORIDE 0.9% 50 ML IV SCH (10:00)
[2021-02-02] MEDS: POLYETHYLENE (MIRALAX) 17 GM PACK PO SCH (11:45)
[2021-02-02] MEDS ORDERED: levoFLOXacin/D5W 750 MG/150 ML BAG IV SCH (12:00)
[2021-02-02] MEDS: FAMOTIDINE 20 MG in SYRINGE 3 ML IV SCH (16:35)
[2021-02-02] MEDS: ARTIFICIAL TEARS OP SCH (22:00)
[2021-02-02] MEDS: ATORVASTATIN 40 MG TAB PO SCH (22:01)
[2021-02-02] MEDS: MELATONIN 3 MG TAB PO PRN (22:12)
[2021-02-03] MEDS: LEVOTHYROXINE SODIUM 125 MCG TABLET PO SCH (06:32)
[2021-02-03 06:36] LABS: Basophils # (auto) 0.02 K/uL (0-0.2); Basophils % (auto) 0.2 %; Eosinophils # (auto) 0.09 K/uL (0-0.5); Eosinophils % (auto) 0.9 %; Hemoglobin 8.2 g/dL (12.0-16.0); Immature Granulocytes # (auto) 0.03 K/uL (0.00-0.02); Immature Granulocytes % (auto) 0.3 %; Lymphocytes # (auto) 0.69 K/uL (1.2-3.4); Lymphocytes % (auto) 6.9 %; Mean Corpuscular Hemoglobin 40.4 pg (25-34); Mean Corpuscular Hgb Conc 32.8 g/dL (32-36); Mean Corpuscular Volume 123.2 fL (80-100); Mean Platelet Volume 8.8 fL (7.4-10.4); Monocytes # (auto) 0.46 K/uL (0.11-0.59); Monocytes % (auto) 4.6 %; Neutrophils # (auto) 8.69 K/uL (1.4-6.5); Neutrophils % (auto) 87.1 %; Platelet Count 463 K/uL (130-400); RDW Coefficient of Variation 23.4 % (11.5-14.5); RDW Standard Deviation 103.6 fL (36.4-46.3); Red Blood Count 2.03 M/uL (4.2-5.4); White Blood Count 9.98 K/uL (4.8-10.8)
[2021-02-03 06:54] LABS: Anisocytosis Present; Macrocytosis Present; Tear Drop Cells 1+
[2021-02-03 07:07] LABS: Albumin Level 2.2 gm/dl (3.4-5.0); BUN Creatinine Ratio 17.1 (10-20); Calcium 8.7 mg/dl (8.5-10.1); Creatinine Clr Calc Pharmacy 42.3 ml/min; Est GFR (African American) 58.6; Est GFR (Non-African American) 50.5
[2021-02-03 07:10] LABS: Albumin Globulin Ratio 0.5 (0.9-2); Bilirubin,Total 0.8 mg/dl (0.2-1); Globulin 4.1 gm/dl (2.5-4.0); Total Protein 6.3 gm/dl (6.4-8.2)
[2021-02-03] MEDS: METOPROLOL TARTRATE 50 MG TAB PO SCH ×2 (09:23→21:10)
[2021-02-03] MEDS: GABAPENTIN 100 MG CAP PO SCH ×3 (09:23→21:10)
[2021-02-03] MEDS: FAMOTIDINE 20 MG in SYRINGE 3 ML IV SCH (09:24)
[2021-02-03] MEDS: ZINC SULFATE 220 MG CAPSULE PO SCH (09:25)
[2021-02-03] MEDS: EZETIMIBE 10 MG TABLET PO SCH (09:29)
[2021-02-03] MEDS: FLUCONAZOLE 100 MG TAB PO SCH (09:29)
[2021-02-03] MEDS: BACLOFEN 10 MG TAB PO SCH ×3 (09:30→21:10)
[2021-02-03] MEDS: ENOXAPARIN INJ 40 MG/0.4 ML SYR SQ SCH (09:30)
[2021-02-03] MEDS: POLYETHYLENE (MIRALAX) 17 GM PACK PO SCH (09:30)
[2021-02-03] MEDS: HYDROXYUREA 500 MG CAP PO SCH ×2 (09:33→21:10)
[2021-02-03] MEDS: INSULIN GLARGINE SOLOSTAR 100 UNITS/ML 3 ML PEN SC SCH ×2 (09:35→21:12)
[2021-02-03] MEDS: INSULIN ASPART 100 UNITS/ML 3 ML PEN SC SCH ×4 (09:35→21:11)
--- NOTE | 2021-02-03 09:37 | Hospitalist Progress Note ---
Date of Service February 03, 2021 Assessment & Plan (1) Sacral wound: Pressure ulcer of sacral region, stage 2 Prior imaging last winter with sacral ulcer/cellulitis/etc and on examination today does appear to be large, approximately 7cm transverse with some oozing, purulent material Surface wound culture obtained 01/01 as we were cleaning her up but note she has already been on antibiotics. MRI pelvis 01/31 for further evaluation prior to placement of any silver which could distort imaging * 1. Sacral decubitus ulcer, as described above. No marrow edema to suggest osteomyelitis. * 2. No fluid collection is suggest abscess within the pelvis. * 3. Increase in size of an 6.4 cm left ovarian lesion which contains thin septations. This lesion is indeterminate and a follow-up pelvic ultrasound is recommended. (WILL NEED F/U AND WAS DISCUSSED W PATIENT 02/01) CTAP 02/01 * 1. Trace bilateral pleural effusions, lower lobe mucoid impaction, and basilar opacities, likely atelectatic * 2. Mild splenomegaly * 3. No evidence of bowel obstruction. No evidence of free air. No evidence of acute appendicitis. No evidence of acute diverticulitis * 4. Redemonstration of a 6 cm cystic left adnexal mass within septations likely ovarian * 5. Sacral decubitus ulcer. There is absent bone involving the proximal coccyx. This likely represents chronic sequela of osteomyelitis * --> will have orthopedics review imaging today to see if concerns/intervention vs continued abx. No bone marrow edema on prior MRI 01/31 * 6. 16mm right adrenal nodule Vancomycin and Meropenem but switched back to prior regimen until confirmed length/duration given no infxn currently to heel. Per records from [facility] --> Patient completed abx on 01/24 for R heel OM BLOOD CULTURES continue to be negative -- follow DISCONTINUE ABX 02/02 GIVEN INCREASED DELIRIUM (IMPROVING BY AFTERNOON BUT STILL WITH PERIODS) --> no increased focal deficits to her chronic paraplegia. Speech intact. AOx3 except place and suspect due to abx Sacral Wound Cx --> STEVEN ALBICANS --> Placed irrigating wound vac on 02/01 and to be changed Thursday (pulled off last evening due to stool under vac and following instructions by coal trammer, to be back tomorrow) URINE CX ALSO WITH SAME --> spoke with Pharmacy and placed on Fluconazole 200mg daily for 7 days (on day 3 of therapy) Continue Vitamin C to aide in wound heeling as well as Zinc and will place orders for Boost supplementation as well Consider ID consultation pending final cultures -- to be completed tomorrow General surgery consulted for possible need for debridement/recommendations --> Spoke with Dr. Carolina and he would like to hold off on further abx until ID consultation done tomorrow hbg low --Iron (low normal). 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 May need transfusion if continues to be low but has been asymptomatic). --> h/h improved on AM labs NS@80cc/hr for some dehydration on examination today for 1L Continue to monitor labs/replacement electrolytes as needed (2) Fever: * As above. Patient is HD stable and does not appear to be septic. * See above (3) Heel ulcer: * S/p partial calcanectomy performed on 01/20 for osteo with skin plasty performed by Podiatry. * Cultures from bone -- from 01/24/21 with 2+ ESBL E. coli as well as 3+ Pseudomonas and 2+ Morganella morganii. 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 * Was on Daptomycin then Ertapenem/Levofloxacin prior to admission (COMPLETED 01/24) and placed on Meropenem and Vancomycin on admission * Lactic 1.0. Procal 0.34. ESR 45 * Febrile on arrival 38.1C but did not appear toxic or septic * -- NO FURTHER FEVERS, WBC now wnl * Podiatry consulted -- does not feel heel wound with infection. == Follow up with podiatry as previously scheduled (4) Hypothyroid: * Chronic. s/p thyroidectomy. * Last TSH 2.69 January 25, 2021 * Continue Synthroid 125mcg po daily (5) HTN (hypertension): * Chronic. * Blood pressure stable at present * Continue Metoprolol 50mg po BID (6) Diabetes type 2, controlled: * Chronic. Blood sugar is well controlled * -Continue Lantus 20 mg qPM -->changed to 10u BID * -ISS * -Continue Gabapentin * BSG better * Continue to monitor (7) Chronic incomplete quadriplegia: * Developed paralysis Sep 2019 after complications from 5-C7 fusion in [place] where she then developed b/l heel wounds and was placed on Daptomycin IV due to possible osteo and partial calcanectomy performed on 01/20/[address] Holly as above * Continue Flexeril, baclofen (given extra dose 02/01 which could contribute to increased delirium but suspect from abx and no further doses needed), gabapentin 100mg TID * Fall precautions -- rails up at all times * Aspiration precautions (8) CAD (coronary artery disease): * Chronic. Stable. No CP * Continue Atorvastatin, Zetia, Metoprolol BID (9) Anemia: * Near baseline. Hgb=8.2, Hct=24.9. Macrocytic with RYA=997.5. No active bleeding suspected. * B12/folate wnl * No signs of bleeding, hgb improved to 8.2 * No CP or SOB reported * Holding off transfusion at this time * low normal iron. Consider supplementation increase to BID at d/c * Transfuse if needed -- hx MDS and follows heme/onc outside facility in past Ovarian Lesion * Left sided, seen on imaging- larger than prior * Increase in size of an 6.4 cm left ovarian lesion which contains thin septations. This lesion is indeterminate and a follow-up pelvic ultrasound is recommended. * Discussed with patient and will have outpatient pelvic US GI Proph - Pepcid IV DVT Prophylaxis * Lovenox SQ Dispo: continued inpatient stay ID consultation for AM General surgery following and will review MRI Pelvis this afternoon Admission and Anticipated Discharge Date Admission Date: January 31, 2021 Subjective Patient seen this morning. Feeling ok but still slightly dizzy. Somewhat sore throat and would like chloracetic spray if possible as she has used this in the past with relief. No further nausea since placed on Pepcid (will continue) AOx3 but needs reoriented at times. Wound vac off last evening with stool under it. Has had multiple "paste" type BM, soft. Incontinent. No blood. Denies pain but is covered with antifungal and dressing to keep area clean. Eval by gen surgery today who will review MRI and did not feel debridement warranted at this time. Discussed and would hold off on further abx until ID consultation tomorrow per conversation. No fever, chills, chest pain, shortness of breath, abdominal pain, nausea, vomiting at this time. Review of Systems Review of Systems: All systems reviewed & are unremarkable except as noted in HPI & below Physical Exam Physical Exam: General: patient chronically ill in appearance, resting comfortably on her left side in bed, NAD, AA&O x 3 but thought initially in [place] [facility]. States she felt like she was walking with lightheaded sensation Skin: warm, dry, intact, bandage on right heel,c/d/i with boot in place -- does have area of blister from contraction with boot to abd fold (asking RN to place pad between to prevent breakdown) Sacral ulcer and perineum diffuse fungal appearance/reddened with some excoriations. covered in antifungal cream with dressing present, yellow/thick drainage on dressing. HEENT: NC/AT, PERRL, EOMI, anicteric sclera, conjunctiva without injection, external ear normal to inspection and nontender, nares patent, dry mucus membranes, dentition intact, no oropharyngeal lesions, neck supple, trachea midline, no LAD, no thyromegaly, no JVD Heart: +S1/S2, regular, no m/r/g. 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 Results & Data Results & Data ([facility]) Vital Signs (Past 12 Hours) Vital Signs Temp Pulse Resp BP Pulse Ox 02/03/21 08:28 37.1 C 70 16 106/63 96 02/02/21 21:59 75 144/82 H 98 Laboratory Results 02/03/21 02/03/21 02/03/21 Range/Units 08:25 06:03 06:03 WBC 9.98 (4.8-10.8) K/uL RBC 2.03 L (4.2-5.4) M/uL Hgb 8.2 L (12.0-16.0) g/dL Hct 25.0 L (37-47) % MCV 123.2 H (80-100) fL MCH 40.4 H (25-34) pg MCHC 32.8 (32-36) g/dL RDW Std Deviation 103.6 H (36.4-46.3) fL RDW Coeff of Alicia 23.4 H (11.5-14.5) % Plt Count 463 H (130-400) K/uL MPV 8.8 (7.4-10.4) fL Immature Gran % (Auto) 0.3 % Neut % (Auto) 87.1 % Lymph % (Auto) 6.9 % [place] % (Auto) 4.6 % Eos % (Auto) 0.9 % Baso % (Auto) 0.2 % Neut # (Auto) 8.69 H (1.4-6.5) K/uL Lymph # (Auto) 0.69 L (1.2-3.4) K/uL [place] # (Auto) 0.46 (0.11-0.59) K/uL Eos # (Auto) 0.09 (0-0.5) K/uL Baso # (Auto) 0.02 (0-0.2) K/uL Immature Gran # (Auto) 0.03 H (0.00-0.02) K/uL Hypersegmented Neuts 1+ Anisocytosis Present Macrocytosis Present Tear Drop Cells 1+ Sodium 138 (136-145) mmol/L Potassium 4.0 (3.5-5.1) mmol/L Chloride 106 (98-107) mmol/L Carbon Dioxide 26 (21-32) mmol/L Anion Gap 7.0 (3-11) BUN 19 H (7-18) mg/dl Creatinine 1.08 (0.6-1.2) mg/dl Est Cr Clr Drug Dosing 42.3 ml/min Est GFR ( Amer) 58.6 Est GFR (Non-Af Amer) 50.5 BUN/Creatinine Ratio 17.1 (10-20) Glucose 109 H (70-99) mg/dl POC Glucose 130 H (70-99) mg/dl Calcium 8.7 (8.5-10.1) mg/dl Total Bilirubin 0.8 (0.2-1) mg/dl AST 21 (15-37) U/L ALT 15 (12-78) U/L Alkaline Phosphatase 89 (45-117) U/L Total Protein 6.3 L (6.4-8.2) gm/dl Albumin 2.2 L (3.4-5.0) gm/dl Globulin 4.1 H (2.5-4.0) gm/dl Albumin/Globulin Ratio 0.5 L (0.9-2) Vancomycin Trough (See Comment) mcg/ml 02/02/21 02/02/21 02/02/21 Range/Units 21:54 17:39 12:04 WBC (4.8-10.8) K/uL RBC (4.2-5.4) M/uL Hgb (12.0-16.0) g/dL Hct (37-47) % MCV (80-100) fL MCH (25-34) pg MCHC (32-36) g/dL RDW Std Deviation (36.4-46.3) fL RDW Coeff of Alicia (11.5-14.5) % Plt Count (130-400) K/uL MPV (7.4-10.4) fL Immature Gran % (Auto) % Neut % (Auto) % Lymph % (Auto) % [place] % (Auto) % Eos % (Auto) % Baso % (Auto) % Neut # (Auto) (1.4-6.5) K/uL Lymph # (Auto) (1.2-3.4) K/uL [place] # (Auto) (0.11-0.59) K/uL Eos # (Auto) (0-0.5) K/uL Baso # (Auto) (0-0.2) K/uL Immature Gran # (Auto) (0.00-0.02) K/uL Hypersegmented Neuts Anisocytosis Macrocytosis Tear Drop Cells Sodium (136-145) mmol/L Potassium (3.5-5.1) mmol/L Chloride (98-107) mmol/L Carbon Dioxide (21-32) mmol/L Anion Gap (3-11) BUN (7-18) mg/dl Creatinine (0.6-1.2) mg/dl Est Cr Clr Drug Dosing ml/min Est GFR ( Amer) Est GFR (Non-Af Amer) BUN/Creatinine Ratio (10-20) Glucose (70-99) mg/dl POC Glucose 85 119 H 147 H (70-99) mg/dl Calcium (8.5-10.1) mg/dl Total Bilirubin (0.2-1) mg/dl AST (15-37) U/L ALT (12-78) U/L Alkaline Phosphatase (45-117) U/L Total Protein (6.4-8.2) gm/dl Albumin (3.4-5.0) gm/dl Globulin (2.5-4.0) gm/dl Albumin/Globulin Ratio (0.9-2) Vancomycin Trough (See Comment) mcg/ml 02/02/21 Range/Units 08:42 WBC (4.8-10.8) K/uL RBC (4.2-5.4) M/uL Hgb (12.0-16.0) g/dL Hct (37-47) % MCV (80-100) fL MCH (25-34) pg MCHC (32-36) g/dL RDW Std Deviation (36.4-46.3) fL RDW Coeff of Alicia (11.5-14.5) % Plt Count (130-400) K/uL MPV (7.4-10.4) fL Immature Gran % (Auto) % Neut % (Auto) % Lymph % (Auto) % [place] % (Auto) % Eos % (Auto) % Baso % (Auto) % Neut # (Auto) (1.4-6.5) K/uL Lymph # (Auto) (1.2-3.4) K/uL [place] # (Auto) (0.11-0.59) K/uL Eos # (Auto) (0-0.5) K/uL Baso # (Auto) (0-0.2) K/uL Immature Gran # (Auto) (0.00-0.02) K/uL Hypersegmented Neuts Anisocytosis Macrocytosis Tear Drop Cells Sodium (136-145) mmol/L Potassium (3.5-5.1) mmol/L Chloride (98-107) mmol/L Carbon Dioxide (21-32) mmol/L Anion Gap (3-11) BUN (7-18) mg/dl Creatinine (0.6-1.2) mg/dl Est Cr Clr Drug Dosing ml/min Est GFR ( Amer) Est GFR (Non-Af Amer) BUN/Creatinine Ratio (10-20) Glucose (70-99) mg/dl POC Glucose (70-99) mg/dl Calcium (8.5-10.1) mg/dl Total Bilirubin (0.2-1) mg/dl AST (15-37) U/L ALT (12-78) U/L Alkaline Phosphatase (45-117) U/L Total Protein (6.4-8.2) gm/dl Albumin (3.4-5.0) gm/dl Globulin (2.5-4.0) gm/dl Albumin/Globulin Ratio (0.9-2) Vancomycin Trough 28.9 (See Comment) mcg/ml PG Care Time/CCT Total # of Minutes Spent Total Time Spent with Patient: Total time spent is greater than 50% in coordination of care (as documented) at patient's floor/unit and/or counseling patient: Coding Level of Care Code 83427 Subseq Hosp Care Lvl 3 Diagnoses Sacral wound S31.000A Fever R50.9 Fever type: unspecified Heel ulcer L97.419 Laterality: right Non-pressure ulcer stage: unspecified non-pressure ulcer stage Hypothyroid E03.9 Hypothyroidism type: unspecified HTN (hypertension) I10 Hypertension type: unspecified Diabetes type 2, controlled E11.9 Diabetes mellitus care home insulin use: unspecified terminologist insulin use status Diabetes mellitus complication status: without complication Chronic incomplete quadriplegia G82.50 CAD (coronary artery disease) I25.10 Coronary Disease-Associated Artery/Lesion type: [place] artery [place] vs. transplanted heart: [place] heart Associated angina: without angina Anemia D64.9 Anemia type: unspecified type (1) Fever Fever type: unspecified Qualified Code(s): R50.9 - Fever, unspecified (2) Heel ulcer Laterality: right Non-pressure ulcer stage: unspecified non-pressure ulcer stage Qualified Code(s): L97.419 - Non-pressure chronic ulcer of right heel and midfoot with unspecified severity (3) Hypothyroid Hypothyroidism type: unspecified Qualified Code(s): E03.9 - Hypothyroidism, unspecified (4) HTN (hypertension) Hypertension type: unspecified Qualified Code(s): I10 - Essential (primary) hypertension (5) Diabetes type 2, controlled Diabetes mellitus care home insulin use: unspecified terminologist insulin use status Diabetes mellitus complication status: without complication Qualified Code(s): E11.9 - Type 2 diabetes mellitus without complications (6) CAD (coronary artery disease) Coronary Disease-Associated Artery/Lesion type: [place] artery [place] vs. transplanted heart: [place] heart Associated angina: without angina Qualified Code(s): I25.10 - Atherosclerotic heart disease of [place] coronary artery without angina pectoris (7) Anemia Anemia type: unspecified type Qualified Code(s): D64.9 - Anemia, unspecified
--- NOTE | 2021-02-03 11:24 | Surgery Consultation ---
Date of Consultation February 03, 2021 Assessment & Plan (1) Sacral wound: pt is a 75 year-old female who was admitted to hospital for fever with sacral ulcer, IMP: sacral ulcer, some drainage from the sacral ulcer, most cellulitis around the wound,no surgical debridement indication now, recommend to do MRI on pelvis to R/O osteomyelitis. consult wound care nurse, may apply bacitricin on wound once a day, continue IV antibiotic, will F/U, Thanks, Present on Admission?: Yes History of Present Illness Attending Physician: Walker Munoz MD Chief Complaint: fever Primary Care Provider: [facility] Anette Weller is a 75yo female with partial quadriparesis presenting from her [place] [facility] with fever x 1 day. Patient had a bone spur excision/calcanectomy performed on 01/20/[address] Holly of Podiatry. She was seen again on 01/29/21 with complaint of ulcer at the area. She was found to have a right full thickness retrocalcaneal heel wound with exposed achilles tendon wound 9 x 8 x 3cm. A wound culture showed multiple organisms - Pseudomonas, Morganella and ESBL E.coli Patient had been on Daptomycin 270mg IV daily. She had a skin- plasty performed to assist with wound healing. Patient was started on Ertapenem and Levofloxacin which was recommended by ID team from [facility] She presents to ER today with fever. Also with episodic nausea, two episodes of non-bloody/non-bilious emesis this week. No additional complaints. Specifically denies chest pain/palpitations/cough/SOB/abdominal pain/diarrhea. Case discussed with Tonguer who will see patient in AM I ( Sunita Carolina MD ) got a call for consult sacral ulcer, I reviewed pt's H/P, labs, CT scan with pt, doing better, no fever, normal WBC, wound culture reviewed, G + Cocci, Bacilli ER course: Vancomycin, Cefepime Allergies Allergy/AdvReac Type Severity Reaction Status Date / Time mold Allergy Unknown Verified 01/30/21 22:18 pollen extracts Allergy Unknown Verified 01/30/21 22:18 artificial sweeteners Allergy Unknown Uncoded 01/30/21 22:19 Home Medications Medication Instructions Recorded Confirmed Type Protein Powder 1 dose PO TID 01/30/21 01/30/21 History acetaminophen [Tylenol] 650 mg PO Q6 PRN 01/30/21 01/30/21 History albuterol sulfate [Proventil HFA] 2 puff INHALATION Q4 PRN 01/30/21 01/30/21 History ascorbic acid (vitamin C) [Vitamin 500 mg PO BID 01/30/21 01/30/21 History C] atorvastatin 80 mg PO QPM 01/30/21 01/30/21 History baclofen 5 mg PO BID 01/30/21 01/30/21 History baclofen 10 mg PO HS 01/30/21 01/30/21 History bisacodyl [Dulcolax (bisacodyl)] 10 mg ID UD PRN 01/30/21 01/30/21 History cyclobenzaprine 10 mg PO Q8 PRN 01/30/21 01/30/21 History ertapenem 1 g IV DAILY 01/30/21 01/30/21 History ezetimibe [Zetia] 10 mg PO DAILY 01/30/21 01/30/21 History ferrous sulfate [Iron (ferrous 325 mg PO DAILY 01/30/21 01/30/21 History sulfate)] gabapentin 100 mg PO TID 01/30/21 01/30/21 History heparin lock flush (porcine) 5 unit IV QS 01/30/21 01/30/21 History [heparin lock flush] hydroxyurea 500 mg PO BID 01/30/21 01/30/21 History insulin aspart U-100 [Novolog 0 sliding scale dose SUBCUT UD 01/30/21 01/30/21 History U-100 Insulin aspart] insulin glargine [Lantus U-100 20 unit SUBCUT QPM 01/30/21 01/30/21 History Insulin] levofloxacin 750 mg PO DAILY 01/30/21 01/30/21 History levothyroxine 125 mcg PO DAILY 01/30/21 01/30/21 History magnesium oxide 400 mg PO DAILY 01/30/21 01/30/21 History melatonin 1 mg PO HS 01/30/21 01/30/21 History metoprolol tartrate 50 mg PO Q12 01/30/21 01/30/21 History multivitamin 1 tab PO DAILY 01/30/21 01/30/21 History ondansetron HCl [Zofran] 4 mg PO Q6H PRN 01/30/21 01/30/21 History peg 400-propylene glycol [Systane 1 drp OPHTHALMIC (EYE) QPM 01/30/21 01/30/21 History Gel] polyethylene glycol 3350 [Miralax] 17 g PO DAILY 01/30/21 01/30/21 History sodium chloride 1 spray INTRANASAL Q6 PRN 01/30/21 01/30/21 History sodium chloride 0.9 % (flush) 10 ml IV QS 01/30/21 01/30/21 History [Saline Flush] zinc sulfate 220 mg PO DAILY 01/30/21 01/30/21 History Past Med/Surg History Medical History (Updated 01/31/21 @ 00:18 by Lili Rodríguez DO) Anemia CAD (coronary artery disease) Cardiomyopathy Chronic incomplete quadriplegia Depression Diabetes type 2, controlled History of DVT (deep vein thrombosis) 02/26/20 LLE History of [place] (myocardial infarction) 2004 History of renal cell cancer HTN (hypertension) Hypothyroid Myelodysplasia (myelodysplastic syndrome) Neurogenic bowel Seasonal asthma Surgical History (Updated 03/01/20 @ 09:48 by Stephy Alejo RN) History of right nephrectomy History of thyroidectomy Social History Smoking Status: Never smoker Preferred Language: Swedish Feels Safe at Home: Yes Allergies Allergy/AdvReac Type Severity Reaction Status Date / Time acesulfame Allergy Unknown Unknown Verified 01/31/21 15:05 aspartame Allergy Unknown Unknown Verified 01/31/21 15:05 [From Nutrasweet Aspartame] saccharin Allergy Unknown Unknown Verified 01/31/21 15:05 sucralose Allergy Unknown Unknown Verified 01/31/21 15:05 mold Allergy Unknown Verified 01/30/21 22:18 pollen extracts Allergy Unknown Verified 01/30/21 22:18 Home Medications Medication Instructions Recorded Confirmed Type Protein Powder 1 dose PO TID 01/30/21 01/30/21 History acetaminophen [Tylenol] 650 mg PO Q6 PRN 01/30/21 01/30/21 History albuterol sulfate [Proventil HFA] 2 puff INHALATION Q4 PRN 01/30/21 01/30/21 History ascorbic acid (vitamin C) [Vitamin 500 mg PO BID 01/30/21 01/30/21 History C] atorvastatin 80 mg PO QPM 01/30/21 01/30/21 History baclofen 5 mg PO BID 01/30/21 01/30/21 History baclofen 10 mg PO HS 01/30/21 01/30/21 History bisacodyl [Dulcolax (bisacodyl)] 10 mg ID UD PRN 01/30/21 01/30/21 History cyclobenzaprine 10 mg PO Q8 PRN 01/30/21 01/30/21 History ertapenem 1 g IV DAILY 01/30/21 01/30/21 History ezetimibe [Zetia] 10 mg PO DAILY 01/30/21 01/30/21 History ferrous sulfate [Iron (ferrous 325 mg PO DAILY 01/30/21 01/30/21 History sulfate)] gabapentin 100 mg PO TID 01/30/21 01/30/21 History heparin lock flush (porcine) 5 unit IV QS 01/30/21 01/30/21 History [heparin lock flush] hydroxyurea 500 mg PO BID 01/30/21 01/30/21 History insulin aspart U-100 [Novolog 0 sliding scale dose SUBCUT UD 01/30/21 01/30/21 History U-100 Insulin aspart] insulin glargine [Lantus U-100 20 unit SUBCUT QPM 01/30/21 01/30/21 History Insulin] levofloxacin 750 mg PO DAILY 01/30/21 01/30/21 History levothyroxine 125 mcg PO DAILY 01/30/21 01/30/21 History magnesium oxide 400 mg PO DAILY 01/30/21 01/30/21 History melatonin 1 mg PO HS 01/30/21 01/30/21 History metoprolol tartrate 50 mg PO Q12 01/30/21 01/30/21 History multivitamin 1 tab PO DAILY 01/30/21 01/30/21 History ondansetron HCl [Zofran] 4 mg PO Q6H PRN 01/30/21 01/30/21 History peg 400-propylene glycol [Systane 1 drp OPHTHALMIC (EYE) QPM 01/30/21 01/30/21 History Gel] polyethylene glycol 3350 [Miralax] 17 g PO DAILY 01/30/21 01/30/21 History sodium chloride 1 spray INTRANASAL Q6 PRN 01/30/21 01/30/21 History sodium chloride 0.9 % (flush) 10 ml IV QS 01/30/21 01/30/21 History [Saline Flush] zinc sulfate 220 mg PO DAILY 01/30/21 01/30/21 History Patient History Medical History Anemia CAD (coronary artery disease) Cardiomyopathy Chronic incomplete quadriplegia Depression Diabetes type 2, controlled History of DVT (deep vein thrombosis) 02/26/20 LLE History of [place] (myocardial infarction) 2004 History of renal cell cancer HTN (hypertension) Hypothyroid Myelodysplasia (myelodysplastic syndrome) Neurogenic bowel Seasonal asthma Surgical History History of right nephrectomy History of thyroidectomy Social History Smoking Status: Never smoker Hx Alcohol Use: No Hx Substance Use: No Preferred Language: Swedish Communication Ability: Effective Current Living Situation: Senior Living Current Living Situation Comment: [facility] Feels Safe at Home: Yes Safety Concerns: Feels Safe At This Time Assistive Devices: Glasses and Special Shoe Review of Systems Review of Systems: All systems reviewed & are unremarkable except as noted in HPI & below Constitutional: as per Subjective / HPI Eyes: as per Subjective / HPI Ear, Nose, Mouth, Throat: as per Subjective / HPI Respiratory: as per Subjective / HPI Cardiovascular: as per Subjective / HPI Additional Comments: HTN, CAD Gastrointestinal: as per Subjective / HPI Genitourinary: as per Subjective / HPI Musculoskeletal: as per Subjective / HPI heel ulcer, sacral ulcer Integumentary: as per Subjective / HPI Neurologic: as per Subjective / HPI Psychiatric: as per Subjective / HPI depression Endocrine: as per Subjective / HPI hypothyroidism Hematologic / Lymphatic: as per Subjective / HPI anemia Physical Exam Constitutional: WD/WN, vitals as above Eyes: PERRL, conjunctivae normal, anicteric sclerae Neck: trachea midline, no thyromegaly Respiratory: normal respiratory effort, lungs clear to auscultation Cardiovascular: RRR, no murmur, no edema Skin: sacral ulcer, deep to muscle lay, some drainage, chronic granulation tissue, with cellulitis, redness, the ulcer size about 10x6CM, Neurologic: awake Results & Data ([facility]) Vital Signs (Past 12 Hours) Vital Signs Temp Pulse Resp BP Pulse Ox 02/03/21 08:28 37.1 C 70 16 106/63 96 Laboratory Results Abnormal lab results 02/02/21 02/02/21 02/03/21 Range/Units 12:04 17:39 06:03 RBC 2.03 L (4.2-5.4) M/uL Hgb 8.2 L (12.0-16.0) g/dL Hct 25.0 L (37-47) % MCV 123.2 H (80-100) fL MCH 40.4 H (25-34) pg RDW Std Deviation 103.6 H (36.4-46.3) fL RDW Coeff of Alicia 23.4 H (11.5-14.5) % Plt Count 463 H (130-400) K/uL Neut # (Auto) 8.69 H (1.4-6.5) K/uL Lymph # (Auto) 0.69 L (1.2-3.4) K/uL Immature Gran # (Auto) 0.03 H (0.00-0.02) K/uL BUN (7-18) mg/dl Glucose (70-99) mg/dl POC Glucose 147 H 119 H (70-99) mg/dl Total Protein (6.4-8.2) gm/dl Albumin (3.4-5.0) gm/dl Globulin (2.5-4.0) gm/dl Albumin/Globulin Ratio (0.9-2) 02/03/21 02/03/21 Range/Units 06:03 08:25 RBC (4.2-5.4) M/uL Hgb (12.0-16.0) g/dL Hct (37-47) % MCV (80-100) fL MCH (25-34) pg RDW Std Deviation (36.4-46.3) fL RDW Coeff of Alicia (11.5-14.5) % Plt Count (130-400) K/uL Neut # (Auto) (1.4-6.5) K/uL Lymph # (Auto) (1.2-3.4) K/uL Immature Gran # (Auto) (0.00-0.02) K/uL BUN 19 H (7-18) mg/dl Glucose 109 H (70-99) mg/dl POC Glucose 130 H (70-99) mg/dl Total Protein 6.3 L (6.4-8.2) gm/dl Albumin 2.2 L (3.4-5.0) gm/dl Globulin 4.1 H (2.5-4.0) gm/dl Albumin/Globulin Ratio 0.5 L (0.9-2) Diagnostic Findings CT abd pelvis IV con only CLINICAL HISTORY: Fever with unknown source. COMPARISON STUDY: MRI the pelvis dated 01/31/2021. TECHNIQUE: Patient was scanned in a dynamic helical fashion during intravenous administration of 91 cc of Optiray 320 A dose lowering technique was utilized adhering to the principles of ALARA. CT DOSE: 885.10 mGy.cm FINDINGS: Lower chest: There are trace bilateral pleural effusions. There is lower lobe mucoid impaction. There are basilar opacities, likely atelectatic. Liver: The contrast-enhanced liver is normal in size, contour, and attenuation. There is no intrahepatic biliary ductal dilatation. The hepatic veins and portal veins are patent. Gallbladder: Surgically absent Spleen: Mildly enlarged measuring 13 cm Pancreas: Unremarkable. Adrenal glands: There is 16mm indeterminate right adrenal nodule. Kidneys: The right kidney is surgically absent. No solid renal masses are visualized. There is no hydronephrosis Bowel: The colon is somewhat redundant. There are fluid-filled loops of colon and small bowel. There are no findings to indicate a bowel obstruction. The ap pendix appears normal. There is no evidence of acute diverticulitis. Peritoneum: There is no intraperitoneal free air or abdominal ascites. Vasculature: The abdominal aorta is normal in course and caliber. Adenopathy: None. Pelvic viscera: There is an indwelling [place] catheter. There is a cystic 6 cm left adnexal mass with thin septations, likely ovarian. Skeletal structures: There is a sacral decubitus ulcer. There is absent bone involving the proximal coccyx. There is no permeative pattern. There is no bone marrow edema on the prior MRI. This likely represents the chronic sequela of ost eomyelitis. IMPRESSION: 1. Trace bilateral pleural effusions, lower lobe mucoid impaction, and basilar opacities, likely atelectatic 2. Mild splenomegaly 3. No evidence of bowel obstruction. No evidence of free air. No evidence of acute appendicitis. No evidence of acute diverticulitis 4. Redemonstration of a 6 cm cystic left adnexal mass within septations likely ovarian 5. Sacral decubitus ulcer. There is absent bone involving the proximal coccyx. This likely represents chronic sequela of osteomyelitis 6. 16mm right adrenal nodule
[2021-02-03 12:06] LABS: Appearance Urine Cloudy (Clear); Bacteria Urine Automated Negative (Negative); Bilirubin Urine Negative (Negative); Blood Urine 1+ (Negative); Color Urine Yellow; Epithelial Cell Urine Auto 20-30 /lpf (0-5); Glucose Urine UA Negative (Negative); Ketones Urine Negative (Negative); Leukocyte Esterase Urine 1+ (Negative); Nitrite Urine Negative (Negative); Protein Urine 1+ (Negative); Specific Gravity Urine 1.024 (1.000-1.030); Urobilinogen Urine Negative (Negative); WBC Urine Automated >30 /hpf (0-5); pH Urine 6.5 (4.5-7.5)
[2021-02-03 12:20] LABS: RBC Urine Automated 0-4 /hpf (0-4)
[2021-02-03] MEDS ORDERED: CHLORASEPTIC 1.4% SOLN 180 ML BTL MT PRN (12:26)
[2021-02-03] MEDS ORDERED: SODIUM CHLORIDE 0.9% 1000ML 1,000 ML IV SCH (12:45)
--- NOTE | 2021-02-03 19:29 | Orthopedic Progress Note ---
Date of Service February 01, 2021 Assessment & Plan (1) Heel ulcer: Osteomyelitis of right calcaneus treated with excision of bone partial calcanectomy 01/24/21 with delayed primary closure and skin plasty 01/29/21. Dr. Decker with ID at [facility] has evaluated culture and sensitivities from excised bone of right calcaneus. His recommendations are ertapenem and Levaquin. Second excised bone specimen was reviewed by Pathology who noted confirmed clear margin. (2) Fever: Patient afebrile. (3) Diabetes type 2, controlled: Chronic, well controlled. Admission and Anticipated Discharge Date Admission Date: January 31, 2021 Subjective Patient is a type II diabetic, 75 year old female with partial quadriparesis who is seen at bedside this morning resting comfortably. She relates feeling much better and has no lower extremity complaints. Review of Systems Review of Systems: All systems reviewed & are unremarkable except as noted in HPI & below Physical Exam Eyes: normal visual storey by confrontation, + anicteric sclerae, PERRL and EOM intact bilaterally ENMT: external ear and nose normal, oropharynx normal Respiratory: normal respiratory effort Cardiovascular: Rate/Rhythm: regular rate and regular rhythm Musculoskeletal: Head/Neck/Chest: normocephalic and head atraumatic Results & Data ([facility]) Vital Signs (Past 12 Hours) Vital Signs Temp Pulse Resp BP Pulse Ox 02/03/21 16:19 36.9 C 65 16 105/58 L 95 02/03/21 08:28 37.1 C 70 16 106/63 96 (1) Heel ulcer Laterality: right Non-pressure ulcer stage: unspecified non-pressure ulcer stage Qualified Code(s): L97.419 - Non-pressure chronic ulcer of right heel and midfoot with unspecified severity (2) Fever Fever type: unspecified Qualified Code(s): R50.9 - Fever, unspecified (3) Diabetes type 2, controlled Diabetes mellitus prison insulin use: unspecified 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
[2021-02-03] MEDS: ATORVASTATIN 40 MG TAB PO SCH (21:09)
[2021-02-03] MEDS: ARTIFICIAL TEARS OP SCH (21:09)
[2021-02-03] MEDS: MELATONIN 3 MG TAB PO PRN (21:25)
[2021-02-04 05:59] LABS: Basophils # (auto) 0.03 K/uL (0-0.2); Basophils % (auto) 0.4 %; Eosinophils # (auto) 0.13 K/uL (0-0.5); Eosinophils % (auto) 1.9 %; Hematocrit (blood only) 22.3 % (37-47); Hemoglobin 7.2 g/dL (12.0-16.0); Immature Granulocytes # (auto) 0.04 K/uL (0.00-0.02); Immature Granulocytes % (auto) 0.6 %; Lymphocytes # (auto) 1.47 K/uL (1.2-3.4); Lymphocytes % (auto) 21.6 %; Mean Corpuscular Hemoglobin 39.3 pg (25-34); Mean Corpuscular Hgb Conc 32.3 g/dL (32-36); Mean Corpuscular Volume 121.9 fL (80-100); Mean Platelet Volume 8.6 fL (7.4-10.4); Monocytes # (auto) 0.32 K/uL (0.11-0.59); Monocytes % (auto) 4.7 %; Neutrophils % (auto) 70.8 %; Platelet Count 393 K/uL (130-400); RDW Coefficient of Variation 24.2 % (11.5-14.5); RDW Standard Deviation 103.9 fL (36.4-46.3); Red Blood Count 1.83 M/uL (4.2-5.4); White Blood Count 6.79 K/uL (4.8-10.8)
[2021-02-04] MEDS: LEVOTHYROXINE SODIUM 125 MCG TABLET PO SCH (06:03)
[2021-02-04 06:29] LABS: Anisocytosis Present; Ovalocytes 1+
[2021-02-04 06:42] LABS: BUN Creatinine Ratio 19.4 (10-20); Calcium 8.1 mg/dl (8.5-10.1); Creatinine Clr Calc Pharmacy 43.5 ml/min; Est GFR (African American) 60.6; Est GFR (Non-African American) 52.3; Potassium 3.9 mmol/L (3.5-5.1)
[2021-02-04] MEDS: BACLOFEN 10 MG TAB PO SCH ×3 (08:29→21:41)
[2021-02-04] MEDS: EZETIMIBE 10 MG TABLET PO SCH (08:31)
[2021-02-04] MEDS: FAMOTIDINE 20 MG in SYRINGE 3 ML IV SCH (08:32)
[2021-02-04] MEDS: ENOXAPARIN INJ 40 MG/0.4 ML SYR SQ SCH (08:33)
[2021-02-04] MEDS: FLUCONAZOLE 100 MG TAB PO SCH (08:35)
[2021-02-04] MEDS: GABAPENTIN 100 MG CAP PO SCH ×3 (08:37→21:41)
[2021-02-04] MEDS: METOPROLOL TARTRATE 50 MG TAB PO SCH ×2 (08:39→21:44)
[2021-02-04] MEDS: POLYETHYLENE (MIRALAX) 17 GM PACK PO SCH (08:40)
[2021-02-04] MEDS: ZINC SULFATE 220 MG CAPSULE PO SCH (08:41)
[2021-02-04] MEDS: INSULIN ASPART 100 UNITS/ML 3 ML PEN SC SCH ×4 (08:48→22:09)
[2021-02-04] MEDS: INSULIN GLARGINE SOLOSTAR 100 UNITS/ML 3 ML PEN SC SCH ×2 (08:52→21:39)
[2021-02-04] MEDS: HYDROXYUREA 500 MG CAP PO SCH ×2 (08:52→21:40)
--- NOTE | 2021-02-04 15:16 | Hospitalist Progress Note ---
Date of Service February 04, 2021 Assessment & Plan (1) Sacral wound: Pressure ulcer of sacral region, stage 2 Prior imaging last winter with sacral ulcer/cellulitis/etc and on examination does appear to be large, approximately 7cm transverse with some oozing, purulent material Surface wound culture obtained 01/01 as we were cleaning her up but note she has already been on antibiotics. wound culture grew Steven, now on Diflucan 200mg daily MRI pelvis 01/31 for further evaluation prior to placement of any silver which could distort imaging * 1. Sacral decubitus ulcer, as described above. No marrow edema to suggest osteomyelitis. * 2. No fluid collection is suggest abscess within the pelvis. * 3. Increase in size of an 6.4 cm left ovarian lesion which contains thin septations. This lesion is indeterminate and a follow-up pelvic ultrasound is recommended. (WILL NEED F/U AND WAS DISCUSSED W PATIENT 02/01) Per records from [facility] --> Patient completed abx on 01/24 for R heel OM BLOOD CULTURES continue to be negative -- follow DISCONTINUE ABX 02/02 GIVEN INCREASED DELIRIUM (IMPROVING BY AFTERNOON BUT STILL WITH PERIODS) --> no increased focal deficits to her chronic paraplegia. Speech intact. AOx3 except place and suspect due to abx Sacral Wound Cx --> STEVEN ALBICANS URINE CX ALSO WITH SAME --> spoke with Pharmacy and placed on Fluconazole 200mg daily for 7 days (on day 3 of therapy) Continue Vitamin C to aide in wound heeling as well as Zinc and will place orders for Boost supplementation as well spoke with Dr. 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 * Cultures from bone -- from 01/24/21 with 2+ ESBL E. coli as well as 3+ Pseudomonas and 2+ Morganella morganii. 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 * Was on Daptomycin then Ertapenem/Levofloxacin prior to admission (COMPLETED 01/24) and placed on Meropenem and Vancomycin on admission * Lactic 1.0. Procal 0.34. ESR 45 * Febrile on arrival 38.1C but did not appear toxic or septic * -- NO FURTHER FEVERS, WBC now wnl * Podiatry consulted -- does not feel heel wound with infection. == Follow up with podiatry as previously scheduled * need to get culture results from [facility] and ID recommendation (4) Hypothyroid: * Chronic. s/p thyroidectomy. * Last TSH 2.69 January 25, 2021 * Continue Synthroid 125mcg po daily (5) HTN (hypertension): * Chronic. * Blood pressure stable at present * Continue Metoprolol 50mg po BID (6) Diabetes type 2, controlled: * Chronic. Blood sugar is well controlled * -Continue Lantus 20 mg qPM -->changed to 10u BID * -ISS * -Continue Gabapentin * BSG better * Continue to monitor (7) Chronic incomplete quadriplegia: * Developed paralysis Sep 2019 after complications from 5-C7 fusion in [place] where she then developed b/l heel wounds and was placed on Daptomycin IV due to possible osteo and partial calcanectomy performed on 01/20/[address] Holly as above * Continue Flexeril, baclofen (given extra dose 02/01 which could contribute to increased delirium but suspect from abx and no further doses needed), gabapentin 100mg TID * Fall precautions -- rails up at all times * Aspiration precautions (8) CAD (coronary artery disease): * Chronic. Stable. No CP * Continue Atorvastatin, Zetia, Metoprolol BID (9) Anemia: * Near baseline. Hgb=8.2, Hct=24.9. Macrocytic with UED=843.5. No active bleeding suspected. * B12/folate wnl * No signs of bleeding, hgb improved to 8.2 * No CP or SOB reported * Holding off transfusion at this time * low normal iron. Consider supplementation increase to BID at d/c * Transfuse if needed -- hx MDS and follows heme/onc outside facility in past Ovarian Lesion * Left sided, seen on imaging- larger than prior * Increase in size of an 6.4 cm left ovarian lesion which contains thin septations. This lesion is indeterminate and a follow-up pelvic ultrasound is recommended. * Discussed with patient and will have outpatient pelvic US GI Proph - Pepcid IV DVT Prophylaxis * Lovenox SQ Dispo: continued inpatient stay ID consultation for AM General surgery following and will review MRI Pelvis this afternoon Admission and Anticipated Discharge Date Admission Date: January 31, 2021 Subjective patient says she is doing fine, no major issues today she admits her voice is a little hoarse but no throat pain she ate okay today, no fever since admission, no cough, no dyspnea discussed case with Dr. Newman from [facility], he wants to know the original recommendations from ID at [facility] he needs to know their timeline, endpoint for antibiotics we discussed the sacral wound culture with Steven, he said that it will need 6 weeks of treatment Review of Systems Review of Systems: All systems reviewed & are unremarkable except as noted in Subjective Constitutional: no fever and no fatigue Ear, Nose, Mouth, Throat: + hoarseness; no sore throat Respiratory: no cough and no dyspnea Cardiovascular: no chest pain and no edema Neurologic: + paralysis (quadraplegia) Physical Exam Constitutional: well developed, + thin and + physical limitations (quadriplegic); no acute distress Neck: trachea midline, no thyromegaly Respiratory: normal respiratory effort, lungs clear to auscultation Cardiovascular: RRR, no murmur, no edema Gastrointestinal (Abdomen): normal bowel sounds, soft, nontender, no hepatosplenomegaly Musculoskeletal: Head/Neck/Chest: normocephalic, head atraumatic and neck supple Extremities: + amputation noted (right calcaneous partially removed) Skin: + wound (sacral decubitus) Neurologic: CN's II-XI intact bilaterally and awake; + does not move all extremities Psychiatric: A+Ox3, euthymic affect Lymphatic: no cervical or axillary lymphadenopathy Results & Data Results & Data ([facility]) Vital Signs (Past 12 Hours) Vital Signs Temp Pulse Resp BP Pulse Ox 02/04/21 07:39 36.7 C 64 16 115/72 95 Laboratory Results Laboratory Results - last 24 hr 02/04/21 02/04/21 02/04/21 05:51 05:51 07:52 WBC 6.79 RBC 1.83 L Hgb 7.2 L Hct 22.3 L MCV 121.9 H MCH 39.3 H MCHC 32.3 RDW Std Deviation 103.9 H RDW Coeff of Alicia 24.2 H Plt Count 393 MPV 8.6 Immature Gran % (Auto) 0.6 Neut % (Auto) 70.8 Lymph % (Auto) 21.6 [place] % (Auto) 4.7 Eos % (Auto) 1.9 Baso % (Auto) 0.4 Neut # (Auto) 4.80 Lymph # (Auto) 1.47 [place] # (Auto) 0.32 Eos # (Auto) 0.13 Baso # (Auto) 0.03 Immature Gran # (Auto) 0.04 H Hypersegmented Neuts 1+ Anisocytosis Present Ovalocytes 1+ Sodium 144 Potassium 3.9 Chloride 111 H Carbon Dioxide 28 Anion Gap 5.0 BUN 20 H Creatinine 1.05 Est Cr Clr Drug Dosing 43.5 Est GFR ( Amer) 60.6 Est GFR (Non-Af Amer) 52.3 BUN/Creatinine Ratio 19.4 Glucose 75 POC Glucose 87 Calcium 8.1 L 02/04/21 02/04/21 02/04/21 11:40 16:30 20:43 WBC RBC Hgb Hct MCV MCH MCHC RDW Std Deviation RDW Coeff of Alicia Plt Count MPV Immature Gran % (Auto) Neut % (Auto) Lymph % (Auto) [place] % (Auto) Eos % (Auto) Baso % (Auto) Neut # (Auto) Lymph # (Auto) [place] # (Auto) Eos # (Auto) Baso # (Auto) Immature Gran # (Auto) Hypersegmented Neuts Anisocytosis Ovalocytes Sodium Potassium Chloride Carbon Dioxide Anion Gap BUN Creatinine Est Cr Clr Drug Dosing Est GFR ( Amer) Est GFR (Non-Af Amer) BUN/Creatinine Ratio Glucose POC Glucose 90 132 H 128 H Calcium Medications Administered Current Inpatient Medications Acetaminophen (Acetaminophen 325 Mg Tab) 650 mg PO Q4H PRN PRN Reason: pain/fever Stop: 03/02/21 01:41 Albuterol (Albuterol Hfa 8 Gm Inhaler) 2 puffs INH Q4H PRN PRN Reason: shortness of breath or wheezing Stop: 03/02/21 09:59 Artificial Tears (Artificial Tears) 1 drops OP QPM DEREK Stop: 03/02/21 20:59 Last Admin: 02/04/21 21:41 Dose: 1 drops Documented by: Atorvastatin Calcium (Atorvastatin 40 Mg Tab) 80 mg PO QPM DEREK Stop: 03/02/21 20:59 Last Admin: 02/04/21 21:41 Dose: 80 mg Documented by: Baclofen (Baclofen 10 Mg Tab) 10 mg PO HS [facility] Stop: 03/02/21 20:59 Last Admin: 02/04/21 21:41 Dose: 10 mg Documented by: Baclofen (Baclofen 10 Mg Tab) 5 mg PO BID@0900,1400 [facility] Stop: 03/02/21 08:59 Last Admin: 02/04/21 13:49 Dose: 5 mg Documented by: Cyclobenzaprine HCl (Cyclobenzaprine Hcl 10 Mg Tab) 10 mg PO Q8 PRN PRN Reason: MUSCLE SPASMS Stop: 03/02/21 03:05 Last Admin: 02/01/21 02:18 Dose: 10 mg Documented by: Dextrose (Dextrose 50% 50 Ml Syringe) 25 - 50 ml IV UD PRN; Protocol PRN Reason: Hypoglycemia Protocol Stop: 03/02/21 01:41 Docusate Sodium (Docusate Sodium 100 Mg Cap) 100 mg PO BID PRN PRN Reason: Constipation Stop: 03/02/21 01:41 Ezetimibe (Ezetimibe 10 Mg Tablet) 10 mg PO DAILY [facility] Stop: 03/02/21 08:59 Last Admin: 02/04/21 08:31 Dose: 10 mg Documented by: Enoxaparin Sodium (Enoxaparin Inj 40 Mg/0.4 Ml Syr) 40 mg SQ QAM [facility] Stop: 03/02/21 08:59 Last Admin: 02/04/21 08:33 Dose: 40 mg Documented by: Fluconazole (Fluconazole 100 Mg Tab) 200 mg PO DAILY [facility]; Protocol Stop: 02/07/21 09:01 Last Admin: 02/04/21 08:35 Dose: 200 mg Documented by: Gabapentin (Gabapentin 100 Mg Cap) 100 mg PO TID [facility] Stop: 03/02/21 08:59 Last Admin: 02/04/21 21:41 Dose: 100 mg Documented by: Glucagon (Glucagon For Inj 1 Mg Vial) 1 mg SQ UD PRN; Protocol PRN Reason: Hypoglycemia Protocol Stop: 03/02/21 01:41 Glucose (Glucose 10 Tabs/Tube) 4 - 8 tabs PO UD PRN; Protocol PRN Reason: Hypoglycemia Protocol Stop: 03/02/21 01:41 Glucose (Glucose 40% Gel 15 Gm Tube) 15 - 30 gm PO UD PRN; Protocol PRN Reason: Hypoglycemia Protocol Stop: 03/02/21 01:41 Heparin Sodium (Beef Lung) (Heparin 10 Unit/Ml 5 Ml Flush) 5 ml FLUSH PRN PRN PRN Reason: Flush Stop: 03/02/21 15:44 Last Admin: 02/04/21 09:17 Dose: 5 ml Documented by: Hydroxyurea (Hydroxyurea 500 Mg Cap) 500 mg PO BID DEREK Stop: 03/02/21 08:59 Last Admin: 02/04/21 21:40 Dose: 500 mg Documented by: Famotidine 20 mg/ Syringe 5 mls @ 2.5 mls/min IV DAILY [facility] Stop: 03/04/21 14:29 Last Admin: 02/04/21 08:32 Dose: 2.5 mls/min Documented by: Insulin Aspart (Insulin Aspart 100 Units/Ml 3 Ml Pen) 0 units SC ACHS DEREK Stop: 03/02/21 03:59 Last Admin: 02/04/21 22:09 Dose: Not Given Documented by: Insulin Glargine (Insulin Glargine Solostar 100 Units/Ml 3 Ml Pen) 10 units SC BID DEREK Stop: 03/02/21 08:59 Last Admin: 02/04/21 21:39 Dose: 10 units Documented by: Levothyroxine Sodium (Levothyroxine Sodium 125 Mcg Tablet) 125 mcg PO DAILYBB [facility] Stop: 03/02/21 06:29 Last Admin: 02/04/21 06:03 Dose: 125 mcg Documented by: Melatonin (Melatonin 3 Mg Tab) 3 mg PO HS PRN PRN Reason: Sleep Stop: 03/04/21 13:43 Last Admin: 02/03/21 21:25 Dose: 3 mg Documented by: Metoprolol Tartrate (Metoprolol Tartrate 50 Mg Tab) 50 mg PO Q12 [facility]ERE[facility] Stop: 03/02/21 08:59 Last Admin: 02/04/21 21:44 Dose: 50 mg Documented by: Miscellaneous (Carbohydrates For Hypoglycemia ) 15 - 30 gm PO UD PRN PRN Reason: Hypoglycemia Protocol Stop: 03/02/21 01:41 Nystatin (Nystatin Powder 15gm Btl) 1 appln EXT QID PRN PRN Reason: Affected Skin Folds Stop: 03/02/21 13:49 Last Admin: 02/02/21 09:30 Dose: 1 appln Documented by: Ondansetron HCl (Ondansetron Inj 2 Mg/Ml 2 Ml Vial) 4 mg IV Q6H PRN PRN Reason: Nausea Stop: 03/02/21 01:41 Last Admin: 01/31/21 08:40 Dose: 4 mg Documented by: Phenol (Chloraseptic 1.4% Soln 180 Ml Btl) 2 sprays MT BID PRN PRN Reason: sore throat Stop: 03/05/21 12:25 Polyethylene Glycol (Polyethylene (Miralax) 17 Gm Pack) 17 gm PO DAILY [facility] Stop: 03/02/21 08:59 Last Admin: 02/04/21 08:40 Dose: Not Given Documented by: Zinc Sulfate (Zinc Sulfate 220 Mg Capsule) 220 mg PO DAILY [facility] Stop: 03/02/21 08:59 Last Admin: 02/04/21 08:41 Dose: 220 mg Documented by: PG Care Time/CCT Total # of Minutes Spent Total Time Spent with Patient: Total time spent is greater than 50% in coordination of care (as documented) at patient's floor/unit and/or counseling patient: Coding Level of Care Code 74322 Subseq Hosp Care Lvl 2 Diagnoses Sacral wound S31.000A Fever R50.9 Fever type: unspecified Heel ulcer L97.419 Laterality: right Non-pressure ulcer stage: unspecified non-pressure ulcer stage Hypothyroid E03.9 Hypothyroidism type: unspecified HTN (hypertension) I10 Hypertension type: unspecified Diabetes type 2, controlled E11.9 Diabetes mellitus complication status: without complication Diabetes mellitus care home insulin use: unspecified offensive coordinator insulin use status Chronic incomplete quadriplegia G82.50 CAD (coronary artery disease) I25.10 Associated angina: without angina Coronary Disease-Associated Artery/Lesion type: [place] artery [place] vs. transplanted heart: [place] heart Anemia D64.9 Anemia type: unspecified type (1) Fever Fever type: unspecified Qualified Code(s): R50.9 - Fever, unspecified (2) CAD (coronary artery disease) Associated angina: without angina Coronary Disease-Associated Artery/Lesion type: [place] artery [place] vs. transplanted heart: [place] heart Qualified Code(s): I25.10 - Atherosclerotic heart disease of [place] coronary artery without angina pectoris (3) Anemia Anemia type: unspecified type Qualified Code(s): D64.9 - Anemia, unspecified (4) Heel ulcer Laterality: right Non-pressure ulcer stage: unspecified non-pressure ulcer stage Qualified Code(s): L97.419 - Non-pressure chronic ulcer of right heel and midfoot with unspecified severity (5) Hypothyroid Hypothyroidism type: unspecified Qualified Code(s): E03.9 - Hypothyroidism, unspecified (6) Diabetes type 2, controlled Diabetes mellitus complication status: without complication Diabetes mellitus care home insulin use: unspecified offensive coordinator insulin use status Qualified Code(s): E11.9 - Type 2 diabetes mellitus without complications (7) HTN (hypertension) Hypertension type: unspecified Qualified Code(s): I10 - Essential (primary) hypertension
[2021-02-04] MEDS: ARTIFICIAL TEARS OP SCH (21:41)
[2021-02-04] MEDS: ATORVASTATIN 40 MG TAB PO SCH (21:41)
[2021-02-05] MEDS: LEVOTHYROXINE SODIUM 125 MCG TABLET PO SCH (06:17)
[2021-02-05 07:53] LABS: Basophils # (auto) 0.05 K/uL (0-0.2); Basophils % (auto) 0.6 %; Eosinophils # (auto) 0.21 K/uL (0-0.5); Eosinophils % (auto) 2.3 %; Hematocrit (blood only) 25.2 % (37-47); Hemoglobin 7.9 g/dL (12.0-16.0); Immature Granulocytes # (auto) 0.07 K/uL (0.00-0.02); Immature Granulocytes % (auto) 0.8 %; Lymphocytes # (auto) 1.17 K/uL (1.2-3.4); Mean Corpuscular Hemoglobin 39.1 pg (25-34); Mean Corpuscular Hgb Conc 31.3 g/dL (32-36); Mean Corpuscular Volume 124.8 fL (80-100); Mean Platelet Volume 8.8 fL (7.4-10.4); Monocytes # (auto) 0.46 K/uL (0.11-0.59); Monocytes % (auto) 5.1 %; Neutrophils # (auto) 7.06 K/uL (1.4-6.5); Neutrophils % (auto) 78.2 %; Platelet Count 422 K/uL (130-400); RDW Coefficient of Variation 23.7 % (11.5-14.5); RDW Standard Deviation 104.5 fL (36.4-46.3); Red Blood Count 2.02 M/uL (4.2-5.4); White Blood Count 9.02 K/uL (4.8-10.8)
[2021-02-05 08:14] LABS: BUN Creatinine Ratio 17.3 (10-20); Calcium 8.2 mg/dl (8.5-10.1); Creatinine Clr Calc Pharmacy 43.5 ml/min; Est GFR (African American) 60.6; Est GFR (Non-African American) 52.3; Potassium 3.8 mmol/L (3.5-5.1)
[2021-02-05 08:23] LABS: Anisocytosis Present; Macrocytosis Present
[2021-02-05] MEDS: INSULIN GLARGINE SOLOSTAR 100 UNITS/ML 3 ML PEN SC SCH ×2 (09:03→21:12)
[2021-02-05] MEDS: INSULIN ASPART 100 UNITS/ML 3 ML PEN SC SCH ×4 (09:03→21:13)
[2021-02-05] MEDS: FAMOTIDINE 20 MG in SYRINGE 3 ML IV SCH (09:05)
[2021-02-05] MEDS: BACLOFEN 10 MG TAB PO SCH ×3 (09:07→21:18)
[2021-02-05] MEDS: FLUCONAZOLE 100 MG TAB PO SCH (09:10)
[2021-02-05] MEDS: EZETIMIBE 10 MG TABLET PO SCH (09:10)
[2021-02-05] MEDS: ZINC SULFATE 220 MG CAPSULE PO SCH (09:11)
[2021-02-05] MEDS: POLYETHYLENE (MIRALAX) 17 GM PACK PO SCH (09:11)
[2021-02-05] MEDS: GABAPENTIN 100 MG CAP PO SCH ×3 (09:12→21:18)
[2021-02-05] MEDS: ENOXAPARIN INJ 40 MG/0.4 ML SYR SQ SCH (09:13)
[2021-02-05] MEDS: HYDROXYUREA 500 MG CAP PO SCH ×2 (09:16→21:13)
[2021-02-05] MEDS: METOPROLOL TARTRATE 50 MG TAB PO SCH ×2 (09:16→21:18)
--- NOTE | 2021-02-05 15:34 | Hospitalist Progress Note ---
Date of Service February 05, 2021 Assessment & Plan (1) Sacral wound: Pressure ulcer of sacral region, stage 2 Prior imaging last winter with sacral ulcer/cellulitis/etc and on examination does appear to be large, approximately 7cm transverse with some oozing, purulent material Surface wound culture obtained 01/01 as we were cleaning her up but note she has already been on antibiotics. wound culture grew Steven, now on Diflucan 200mg daily discussed with Dr. Newman, ID from [facility], he recommends 6 months of treatment for the wound infection, potential for bone involvement MRI pelvis 01/31 for further evaluation prior to placement of any silver which could distort imaging * 1. Sacral decubitus ulcer, as described above. No marrow edema to suggest osteomyelitis. * 2. No fluid collection is suggest abscess within the pelvis. * 3. Increase in size of an 6.4 cm left ovarian lesion which contains thin septations. This lesion is indeterminate and a follow-up pelvic ultrasound is recommended. (WILL NEED F/U AND WAS DISCUSSED W PATIENT 02/01) Per records from [facility] --> Patient completed abx on 01/24 for R heel OM BLOOD CULTURES continue to be negative -- follow DISCONTINUE ABX 02/02 GIVEN INCREASED DELIRIUM (IMPROVING BY AFTERNOON BUT STILL WITH PERIODS) --> no increased focal deficits to her chronic paraplegia. Speech intact. 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 * Cultures from bone -- from 01/24/21 with 2+ ESBL E. coli as well as 3+ Pseudomonas and 2+ Morganella morganii. * Was on Daptomycin then Ertapenem/Levofloxacin prior to admission (COMPLETED 01/24) * Lactic 1.0. Procal 0.34. ESR 45 * Febrile on arrival 38.1C but did not appear toxic or septic * -- NO FURTHER FEVERS, WBC now wnl * Podiatry consulted -- does not feel heel wound with infection. == Follow up with podiatry as previously scheduled (4) Hypothyroid: * Chronic. s/p thyroidectomy. * Last TSH 2.69 January 25, 2021 * Continue Synthroid 125mcg po daily (5) HTN (hypertension): * Chronic. * Blood pressure stable at present * Continue Metoprolol 50mg po BID (6) Diabetes type 2, controlled: * Chronic. Blood sugar is well controlled * -Continue Lantus 20 mg qPM -->changed to 10u BID * -ISS * -Continue Gabapentin * BSG better * Continue to monitor (7) Chronic incomplete quadriplegia: * Developed paralysis Sep 2019 after complications from 5-C7 fusion in [place] where she then developed b/l heel wounds and was placed on Daptomycin IV due to possible osteo and partial calcanectomy performed on 01/20/[address] Holly as above * Continue Flexeril, baclofen (given extra dose 02/01 which could contribute to increased delirium but suspect from abx and no further doses needed), gabapentin 100mg TID * Fall precautions -- rails up at all times * Aspiration precautions (8) CAD (coronary artery disease): * Chronic. Stable. No CP * Continue Atorvastatin, Zetia, Metoprolol BID (9) Anemia: * Near baseline. Hgb=8.2, Hct=24.9. Macrocytic with LBZ=621.5. No active bleeding suspected. * B12/folate wnl * No signs of bleeding, hgb improved to 8.2 * No CP or SOB reported * Holding off transfusion at this time * low normal iron. Consider supplementation increase to BID at d/c * Transfuse if needed -- hx MDS and follows heme/onc outside facility in past Ovarian Lesion * Left sided, seen on imaging- larger than prior * Increase in size of an 6.4 cm left ovarian lesion which contains thin septations. This lesion is indeterminate and a follow-up pelvic ultrasound is recommended. * Discussed with patient and will have outpatient pelvic US GI Proph - Pepcid IV DVT Prophylaxis * Lovenox SQ Dispo: continued inpatient stay can likely return to [facility] tomorrow Admission and Anticipated Discharge Date Admission Date: January 31, 2021 Subjective patient doing fine today, not much pain, no dyspnea, no fever discussed with Dr. Holly DPM and Dr. Newman, ID, this morning culture from ankle grew out E coli, Morganella and Pseudomonas and completed treatment with Ertapenem and Levaquin the ankle wound looks good, no signs of infection the sacral wound grew out Steven, Dr. Newman recommends 6 months of Diflucan discussed this with patient she agrees with plan, no questions reviewed labs, WBC normal, Hb is up to 7.9, Cr 1.05, K 3.8 can likely return to [facility] tomorrow Review of Systems Review of Systems: All systems reviewed & are unremarkable except as noted in Subjective Physical Exam Constitutional: well developed, + thin and + physical limitations (quadriplegic); no acute distress Neck: trachea midline, no thyromegaly Respiratory: normal respiratory effort, lungs clear to auscultation Cardiovascular: RRR, no murmur, no edema Gastrointestinal (Abdomen): normal bowel sounds, soft, nontender, no hepatosplenomegaly Musculoskeletal: Head/Neck/Chest: normocephalic, head atraumatic and neck supple Extremities: + amputation noted (right calcaneous partially removed) Skin: + wound (sacral decubitus) Neurologic: CN's II-XI intact bilaterally and awake; + does not move all extremities Psychiatric: A+Ox3, euthymic affect Lymphatic: no cervical or axillary lymphadenopathy Results & Data Results & Data ([facility]) Vital Signs (Past 12 Hours) Vital Signs Temp Pulse Resp BP Pulse Ox 02/05/21 09:15 73 101/55 L 02/05/21 07:16 36.7 C 71 17 122/73 94 Laboratory Results Laboratory Results - last 24 hr 02/04/21 02/04/21 02/05/21 16:30 20:43 07:39 WBC 9.02 RBC 2.02 L Hgb 7.9 L Hct 25.2 L MCV 124.8 H MCH 39.1 H MCHC 31.3 L RDW Std Deviation 104.5 H RDW Coeff of Alicia 23.7 H Plt Count 422 H MPV 8.8 Immature Gran % (Auto) 0.8 Neut % (Auto) 78.2 Lymph % (Auto) 13.0 [place] % (Auto) 5.1 Eos % (Auto) 2.3 Baso % (Auto) 0.6 Neut # (Auto) 7.06 H Lymph # (Auto) 1.17 L [place] # (Auto) 0.46 Eos # (Auto) 0.21 Baso # (Auto) 0.05 Immature Gran # (Auto) 0.07 H Hypersegmented Neuts 1+ Anisocytosis Present Macrocytosis Present Sodium Potassium Chloride Carbon Dioxide Anion Gap BUN Creatinine Est Cr Clr Drug Dosing Est GFR ( Amer) Est GFR (Non-Af Amer) BUN/Creatinine Ratio Glucose POC Glucose 132 H 128 H Calcium 02/05/21 02/05/21 02/05/21 07:39 07:59 12:03 WBC RBC Hgb Hct MCV MCH MCHC RDW Std Deviation RDW Coeff of Alicia Plt Count MPV Immature Gran % (Auto) Neut % (Auto) Lymph % (Auto) [place] % (Auto) Eos % (Auto) Baso % (Auto) Neut # (Auto) Lymph # (Auto) [place] # (Auto) Eos # (Auto) Baso # (Auto) Immature Gran # (Auto) Hypersegmented Neuts Anisocytosis Macrocytosis Sodium 140 Potassium 3.8 Chloride 108 H Carbon Dioxide 28 Anion Gap 4.0 BUN 18 Creatinine 1.05 Est Cr Clr Drug Dosing 43.5 Est GFR ( Amer) 60.6 Est GFR (Non-Af Amer) 52.3 BUN/Creatinine Ratio 17.3 Glucose 88 POC Glucose 96 135 H Calcium 8.2 L Medications Administered Current Inpatient Medications Acetaminophen (Acetaminophen 325 Mg Tab) 650 mg PO Q4H PRN PRN Reason: pain/fever Stop: 03/02/21 01:41 Albuterol (Albuterol Hfa 8 Gm Inhaler) 2 puffs INH Q4H PRN PRN Reason: shortness of breath or wheezing Stop: 03/02/21 09:59 Artificial Tears (Artificial Tears) 1 drops OP QPM [facility] Stop: 03/02/21 20:59 Last Admin: 02/04/21 21:41 Dose: 1 drops Documented by: Atorvastatin Calcium (Atorvastatin 40 Mg Tab) 80 mg PO QPM DEREK Stop: 03/02/21 20:59 Last Admin: 02/04/21 21:41 Dose: 80 mg Documented by: Baclofen (Baclofen 10 Mg Tab) 10 mg PO HS DEREK Stop: 03/02/21 20:59 Last Admin: 02/04/21 21:41 Dose: 10 mg Documented by: Baclofen (Baclofen 10 Mg Tab) 5 mg PO BID@0900,1400 [facility] Stop: 03/02/21 08:59 Last Admin: 02/05/21 14:36 Dose: 5 mg Documented by: Cyclobenzaprine HCl (Cyclobenzaprine Hcl 10 Mg Tab) 10 mg PO Q8 PRN PRN Reason: MUSCLE SPASMS Stop: 03/02/21 03:05 Last Admin: 02/01/21 02:18 Dose: 10 mg Documented by: Dextrose (Dextrose 50% 50 Ml Syringe) 25 - 50 ml IV UD PRN; Protocol PRN Reason: Hypoglycemia Protocol Stop: 03/02/21 01:41 Docusate Sodium (Docusate Sodium 100 Mg Cap) 100 mg PO BID PRN PRN Reason: Constipation Stop: 03/02/21 01:41 Ezetimibe (Ezetimibe 10 Mg Tablet) 10 mg PO DAILY [facility] Stop: 03/02/21 08:59 Last Admin: 02/05/21 09:10 Dose: 10 mg Documented by: Enoxaparin Sodium (Enoxaparin Inj 40 Mg/0.4 Ml Syr) 40 mg SQ QAM [facility] Stop: 03/02/21 08:59 Last Admin: 02/05/21 09:13 Dose: 40 mg Documented by: Fluconazole (Fluconazole 100 Mg Tab) 200 mg PO DAILY [facility]; Protocol Stop: 02/07/21 09:01 Last Admin: 02/05/21 09:10 Dose: 200 mg Documented by: Gabapentin (Gabapentin 100 Mg Cap) 100 mg PO TID [facility] Stop: 03/02/21 08:59 Last Admin: 02/05/21 14:36 Dose: 100 mg Documented by: Glucagon (Glucagon For Inj 1 Mg Vial) 1 mg SQ UD PRN; Protocol PRN Reason: Hypoglycemia Protocol Stop: 03/02/21 01:41 Glucose (Glucose 10 Tabs/Tube) 4 - 8 tabs PO UD PRN; Protocol PRN Reason: Hypoglycemia Protocol Stop: 03/02/21 01:41 Glucose (Glucose 40% Gel 15 Gm Tube) 15 - 30 gm PO UD PRN; Protocol PRN Reason: Hypoglycemia Protocol Stop: 03/02/21 01:41 Heparin Sodium (Beef Lung) (Heparin 10 Unit/Ml 5 Ml Flush) 5 ml FLUSH PRN PRN PRN Reason: Flush Stop: 06/05/21 15:44 Last Admin: 02/04/21 09:17 Dose: 5 ml Documented by: Hydroxyurea (Hydroxyurea 500 Mg Cap) 500 mg PO BID [facility] Stop: 03/02/21 08:59 Last Admin: 02/05/21 09:16 Dose: 500 mg Documented by: Famotidine 20 mg/ Syringe 5 mls @ 2.5 mls/min IV DAILY [facility] Stop: 03/04/21 14:29 Last Admin: 02/05/21 09:05 Dose: 2.5 mls/min Documented by: Insulin Aspart (Insulin Aspart 100 Units/Ml 3 Ml Pen) 0 units SC ACHS [facility] Stop: 03/02/21 03:59 Last Admin: 02/05/21 12:45 Dose: 4 units Documented by: Insulin Glargine (Insulin Glargine Solostar 100 Units/Ml 3 Ml Pen) 10 units SC BID [facility] Stop: 03/02/21 08:59 Last Admin: 02/05/21 09:03 Dose: 10 units Documented by: Levothyroxine Sodium (Levothyroxine Sodium 125 Mcg Tablet) 125 mcg PO DAILYBB [facility] Stop: 03/02/21 06:29 Last Admin: 02/05/21 06:17 Dose: 125 mcg Documented by: Melatonin (Melatonin 3 Mg Tab) 3 mg PO HS PRN PRN Reason: Sleep Stop: 03/04/21 13:43 Last Admin: 02/03/21 21:25 Dose: 3 mg Documented by: Metoprolol Tartrate (Metoprolol Tartrate 50 Mg Tab) 50 mg PO Q12 [facility] Stop: 03/02/21 08:59 Last Admin: 02/05/21 09:16 Dose: Not Given Documented by: Miscellaneous (Carbohydrates For Hypoglycemia ) 15 - 30 gm PO UD PRN PRN Reason: Hypoglycemia Protocol Stop: 03/02/21 01:41 Nystatin (Nystatin Powder 15gm Btl) 1 appln EXT QID PRN PRN Reason: Affected Skin Folds Stop: 03/02/21 13:49 Last Admin: 02/02/21 09:30 Dose: 1 appln Documented by: Ondansetron HCl (Ondansetron Inj 2 Mg/Ml 2 Ml Vial) 4 mg IV Q6H PRN PRN Reason: Nausea Stop: 03/02/21 01:41 Last Admin: 01/31/21 08:40 Dose: 4 mg Documented by: Phenol (Chloraseptic 1.4% Soln 180 Ml Btl) 2 sprays MT BID PRN PRN Reason: sore throat Stop: 03/05/21 12:25 Polyethylene Glycol (Polyethylene (Miralax) 17 Gm Pack) 17 gm PO DAILY [facility] Stop: 03/02/21 08:59 Last Admin: 02/05/21 09:11 Dose: Not Given Documented by: Zinc Sulfate (Zinc Sulfate 220 Mg Capsule) 220 mg PO DAILY [facility] Stop: 03/02/21 08:59 Last Admin: 02/05/21 09:11 Dose: 220 mg Documented by: PG Care Time/CCT Total # of Minutes Spent Total Time Spent with Patient: Total time spent is greater than 50% in coordination of care (as documented) at patient's floor/unit and/or counseling patient: Coding Level of Care Code 99776 Subseq Hosp Care Lvl 2 Diagnoses Sacral wound S31.000A Fever R50.9 Fever type: unspecified Heel ulcer L97.419 Laterality: right Non-pressure ulcer stage: unspecified non-pressure ulcer stage Hypothyroid E03.9 Hypothyroidism type: unspecified HTN (hypertension) I10 Hypertension type: unspecified Diabetes type 2, controlled 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 transplanted heart: [place] heart Associated angina: without angina Anemia D64.9 Anemia type: unspecified type (1) Fever Fever type: unspecified Qualified Code(s): R50.9 - Fever, unspecified (2) Heel ulcer Laterality: right Non-pressure ulcer stage: unspecified non-pressure ulcer stage Qualified Code(s): L97.419 - Non-pressure chronic ulcer of right heel and midfoot with unspecified severity (3) Hypothyroid Hypothyroidism type: unspecified Qualified Code(s): E03.9 - Hypothyroidism, unspecified (4) HTN (hypertension) Hypertension type: unspecified Qualified Code(s): I10 - Essential (primary) hypertension (5) Diabetes type 2, controlled Diabetes mellitus chcf insulin use: unspecified chcf insulin use status Diabetes mellitus complication status: without complication Qualified Code(s): E11.9 - Type 2 diabetes mellitus without complications (6) CAD (coronary artery disease) Coronary Disease-Associated Artery/Lesion type: [place] artery [place] vs. transplanted heart: [place] heart Associated angina: without angina Qualified Code(s): I25.10 - Atherosclerotic heart disease of [place] coronary artery without angina pectoris (7) Anemia Anemia type: unspecified type Qualified Code(s): D64.9 - Anemia, unspecified
[2021-02-05] MEDS: ATORVASTATIN 40 MG TAB PO SCH (21:18)
[2021-02-05] MEDS: ARTIFICIAL TEARS OP SCH (21:18)
[2021-02-06] MEDS: LEVOTHYROXINE SODIUM 125 MCG TABLET PO SCH (06:09)
[2021-02-06] MEDS: METOPROLOL TARTRATE 50 MG TAB PO SCH (08:51)
[2021-02-06] MEDS: EZETIMIBE 10 MG TABLET PO SCH (08:51)
[2021-02-06] MEDS: GABAPENTIN 100 MG CAP PO SCH ×2 (08:52→13:59)
[2021-02-06] MEDS: FLUCONAZOLE 100 MG TAB PO SCH (08:52)
[2021-02-06] MEDS: BACLOFEN 10 MG TAB PO SCH ×2 (08:53→13:58)
[2021-02-06] MEDS: HYDROXYUREA 500 MG CAP PO SCH (08:54)
[2021-02-06] MEDS: ENOXAPARIN INJ 40 MG/0.4 ML SYR SQ SCH (08:55)
[2021-02-06] MEDS: INSULIN ASPART 100 UNITS/ML 3 ML PEN SC SCH ×3 (08:55→18:02)
[2021-02-06] MEDS: INSULIN GLARGINE SOLOSTAR 100 UNITS/ML 3 ML PEN SC SCH (09:02)
[2021-02-06] MEDS: POLYETHYLENE (MIRALAX) 17 GM PACK PO SCH (09:03)
[2021-02-06] MEDS: ZINC SULFATE 220 MG CAPSULE PO SCH (09:03)
[2021-02-06] MEDS: FAMOTIDINE 20 MG in SYRINGE 3 ML IV SCH (09:05)
--- NOTE | 2021-02-06 13:02 | Discharge Summary ---
Date of Service February 06, 2021 Admission HPI Per Admitting Provider Anette Weller is a 75yo female with partial quadriparesis presenting from her snf with fever x 1 day. Patient had a bone spur excision/calcanectomy performed on 01/20/[address] Holly of Podiatry. She was seen again on 01/29/21 with complaint of ulcer at the area. She was found to have a right full thickness retrocalcaneal heel wound with exposed achilles tendon wound 9 x 8 x 3cm. A wound culture showed multiple organisms - Pseudomonas, Morganella and ESBL E.coli Patient had been on Daptomycin 270mg IV daily. She had a skin- plasty performed to assist with wound healing. Patient was started on Ertapenem and Levofloxacin which was recommended by ID team from [facility] She presents to ER today with fever. Also with episodic nausea, two episodes of non-bloody/non-bilious emesis this week. No additional complaints. Specifically denies chest pain/palpitations/cough/SOB/abdominal pain/diarrhea. Case discussed with Dredging Inspector who will see patient in AM ER course: Vancomycin, Cefepime Principal Diagnosis Fever, sacral decubitus ulcer stage II Discharge Exam Constitutional well developed, + thin and + physical limitations (quadriplegic); no acute distress Neck trachea midline, no thyromegaly Respiratory normal respiratory effort, lungs clear to auscultation Cardiovascular RRR, no murmur, no edema Gastrointestinal (Abdomen) normal bowel sounds, soft, nontender, no hepatosplenomegaly Musculoskeletal Head/Neck/Chest: normocephalic, head atraumatic and neck supple Extremities: + amputation noted (right calcaneous partially removed) Skin + wound (sacral decubitus) Neurologic CN's II-XI intact bilaterally and awake; + does not move all extremities Psychiatric A+Ox3, euthymic affect Lymphatic no cervical or axillary lymphadenopathy Discharge Data Allergies Allergy/AdvReac Type Severity Reaction Status Date / Time acesulfame Allergy Unknown Unknown Verified 01/31/21 15:05 aspartame Allergy Unknown Unknown Verified 01/31/21 15:05 [From Nutrasweet Aspartame] saccharin Allergy Unknown Unknown Verified 01/31/21 15:05 sucralose Allergy Unknown Unknown Verified 01/31/21 15:05 mold Allergy Unknown Verified 01/30/21 22:18 pollen extracts Allergy Unknown Verified 01/30/21 22:18 Consultations 01/30/21 23:04 ED Decision to Admit Stat 01/30/21 23:06 Consult Podiatry Routine 01/31/21 01:42 Consult Podiatry Routine 02/02/21 09:00 Consult Health Information Management Routine 02/02/21 09:20 Consult Infectious Diseases Routine 02/03/21 09:13 Consult General Surgery Routine Ordered Studies 01/31/21 13:30 MR pelvis wo con Routine 01/31/21 14:30 US venous doppler UE RT Routine 02/01/21 09:39 CT abd pelvis IV con only Routine Hospital Course (1) Sacral wound: Pressure ulcer of sacral region, stage 2 Prior imaging last winter with sacral ulcer/cellulitis/etc and on examination does appear to be large, approximately 7cm transverse with some oozing, purulent material Surface wound culture obtained 01/01 as we were cleaning her up but note she has already been on antibiotics. wound culture grew Maren, now on Diflucan 200mg daily discussed with Dr. Newman, ID from [place], he recommends 6 months of treatment for the wound infection, potential for bone involvement MRI pelvis 01/31 for further evaluation prior to placement of any silver which could distort imaging * 1. Sacral decubitus ulcer, as described above. No marrow edema to suggest osteomyelitis. * 2. No fluid collection is suggest abscess within the pelvis. * 3. Increase in size of an 6.4 cm left ovarian lesion which contains thin sept ations. This lesion is indeterminate and a follow-up pelvic ultrasound is recommended. (WILL NEED F/U AND WAS DISCUSSED W PATIENT 02/01) Per records from [facility] --> Patient completed abx on 01/24 for R heel OM BLOOD CULTURES continue to be negative -- follow DISCONTINUE ABX 02/02 GIVEN INCREASED DELIRIUM (IMPROVING BY AFTERNOON BUT STILL WITH PERIODS) --> no increased focal deficits to her chronic paraplegia. Speech intact. AOx3 except place and suspect due to abx Sacral Wound Cx --> MAREN ALBICANS URINE CX ALSO WITH SAME continue Dilfucan as above Continue Vitamin C to aide in wound heeling as well as Zinc and will place orders for Boost supplementation as well at this time wound care is following with wound vac, will continue this on disc harge, follow up with wound clinic stay on Dilfucan for 6 months total (2) Fever: * no fever since admission, WBC normal, only culture has been Maren in u rine and sacral wound (3) Heel ulcer: * S/p partial calcanectomy performed on 01/20 for osteo with skin plasty performed by Podiatry. * Cultures from bone -- from 01/24/21 with 2+ ESBL E. coli as well as 3+ Pseudomonas and 2+ Morganella morganii. * Was on Daptomycin then Ertapenem/Levofloxacin prior to admission (COMPLETED 01/24) * Lactic 1.0. Procal 0.34. ESR 45 * Febrile on arrival 38.1C but did not appear toxic or septic * -- NO FURTHER FEVERS, WBC now wnl * Podiatry consulted -- does not feel heel wound with infection. == Follow up with podiatry as previously scheduled (4) Hypothyroid: * Chronic. s/p thyroidectomy. * Last TSH 2.69 January 25, 2021 * Continue Synthroid 125mcg po daily (5) HTN (hypertension): * Chronic. * Blood pressure stable at present * Continue Metoprolol 50mg po BID (6) Diabetes type 2, controlled: * Chronic. Blood sugar is well controlled * -Continue Lantus 20 mg qPM * -ISS * -Continue Gabapentin * BSG better * Continue to monitor (7) Chronic incomplete quadriplegia: * Developed paralysis Sep 2019 after complications from 5-C7 fusion in [place] where she then developed b/l heel wounds and was placed on Daptomycin IV due to possible osteo and partial calcanectomy performed on 01/20/[address] Holly as above * Continue Flexeril, baclofen (given extra dose 02/01 which could contribute to increased delirium but suspect from abx and no further doses needed), gabapentin 100mg TID * Fall precautions -- rails up at all times * Aspiration precautions (8) CAD (coronary artery disease): * Chronic. Stable. No CP * Continue Atorvastatin, Zetia, Metoprolol BID (9) Anemia: * Near baseline. Hgb=8.2, Hct=24.9. Macrocytic with QWW=345.5. No active bleeding suspected. * B12/folate wnl * No signs of bleeding, hgb improved to 8.2 * No CP or SOB reported * Holding off transfusion at this time * low normal iron. Consider supplementation increase to BID at d/c * Transfuse if needed -- hx MDS and follows heme/onc outside facility in past Ovarian Lesion * Left sided, seen on imaging- larger than prior * Increase in size of an 6.4 cm left ovarian lesion which contains thin septations. This lesion is indeterminate and a follow-up pelvic ultrasound is recommended. * Discussed with patient and will have outpatient pelvic US GI Proph - Pepcid IV DVT Prophylaxis * Lovenox SQ Dispo: return to [place] [facility] Total Time Total Time Spent Total Time Spent (In Minutes): 32 Total Time Includes: Examination of the Patient, Discharge Planning and Medication Reconciliation Discharge Plan Discharge Items Patient Disposition: Transfer [facility] Reason For Visit: FEBRILE, SACRAL WOUND Discharge Diagnosis: Maren infection: UTI and soft tissue sacral wound recent osteomyelitis of calcaneous, right, resolved Condition on Discharge: Good Goals: continue treatment with Diflucan follow up with wound clinic for sacral wound, wound vac follow up with Dr. Avni DPM, for right heel Activity: Resume your previous activity Non-emergency contact: Primary Care Provider Call non-emergency contact if: you have any medication questions, your symptoms worsen and you have a fever Follow-up/Referrals: [place] [Primary Care Provider] - (next week) Nick Holly DPM, MS [Physician] - (in 1-2 weeks) Diet: Carb Consistent or DM2 Addtl Attending Provider Instructions: Medications: - FLUCONAZOLE: needs to take 200mg daily for 6 MONTHS, this is recommendation from infectious disease due to culture found on sacral wound Fever, recent right heel osteomyelitis, sacral decubitus ulcer stage II no fever since admission no further signs of infection in the right heel, evaluated extensively by Dr. Avni DPM, no further antibiotics needed urine culture grew out Maren and sacral wound culture grew out Maren MRI pelvis: no signs of osteomyelitis discussed with Dr. Newman, infectious disease with Nicolasa Nuñez recommends treating with Dilflucan for 6 months, needs to be prolonged treatment due to potential for bone infection on sacrum please continue wound vac to sacrum, follow up with wound clinic Pending Studies at Discharge: No Stand-Alone Forms: My [employer] Skilled Items Patient informed of condition?: Yes DNR: No Discharge Level of Care: Skilled Communicable Disease: No Discharge Prognosis: Stable Lines: None Urinary Catheter: Yes Medications and DC Order Prescriptions: New fluconazole 100 mg Tablet 200 mg PO DAILY 30 Days Qty: 60 RF: 5 Continued multivitamin Tablet 1 tab PO DAILY RF: 0 cyclobenzaprine 10 mg tablet 10 mg PO Q8 PRN (Reason: MUSCLE SPASMS) RF: 0 hydroxyurea 500 mg capsule 500 mg PO BID RF: 0 atorvastatin 80 mg tablet 80 mg PO QPM RF: 0 Lantus U-100 Insulin 100 unit/mL solution 20 unit SUBCUT QPM RF: 0 polyethylene glycol 3350 [Miralax] 17 gram Powder In Packet 17 g PO DAILY RF: 0 heparin lock flush (porcine) [heparin lock flush] 10 unit/mL Solution 5 unit IV QS RF: 0 baclofen 10 mg tablet 10 mg PO HS RF: 0 insulin aspart U-100 [Novolog U-100 Insulin aspart] 100 unit/mL solution 0 sliding scale dose subcut UD RF: 0 bisacodyl [Dulcolax (bisacodyl)] 10 mg Suppository 10 mg IL UD PRN (Reason: Constipation) RF: 0 ferrous sulfate [Iron (ferrous sulfate)] 325 mg (65 mg iron) Tablet 325 mg PO DAILY RF: 0 levothyroxine 125 mcg tablet 125 mcg PO DAILY RF: 0 metoprolol tartrate 50 mg tablet 50 mg PO Q12 RF: 0 gabapentin 100 mg capsule 100 mg PO TID RF: 0 ezetimibe [Zetia] 10 mg Tablet 10 mg PO DAILY RF: 0 melatonin 1 mg Tablet 1 mg PO HS RF: 0 baclofen 5 mg tablet 5 mg PO BID RF: 0 magnesium oxide 400 mg magnesium Tablet 400 mg PO DAILY RF: 0 Protein Powder 1 dose PO TID RF: 0 acetaminophen [Tylenol] 325 mg Tablet 650 mg PO Q6 PRN (Reason: Fever Or Pain) RF: 0 ondansetron HCl [Zofran] 4 mg Tablet 4 mg PO Q6H PRN (Reason: Nausea) RF: 0 ascorbic acid (vitamin C) [Vitamin C] 500 mg Tablet 500 mg PO BID RF: 0 albuterol sulfate [Proventil HFA] 90 mcg/actuation Hfa Aerosol Inhaler 2 puff INHALATION Q4 PRN (Reason: Shortness Of Breath Or Wheezing) RF: 0 zinc sulfate 220 mg Capsule 220 mg PO DAILY RF: 0 sodium chloride 0.9 % (flush) [Saline Flush] Syringe 10 ml IV QS RF: 0 sodium chloride 0.65 % Aerosol,Warren 1 spray INTRANASAL Q6 PRN (Reason: DRY NARES) RF: 0 Systane Gel 0.4-0.3 % Drops,Gel 1 drp OPHTHALMIC (EYE) QPM RF: 0 Discontinued levofloxacin 750 mg Tablet 750 mg PO DAILY RF: 0 ertapenem 1 gram Recon Soln 1 g IV DAILY RF: 0 Discharge Orders: Discharge Order (Routine); Ordered 02/06/21 Ordered By: Tee Cardoso Admission Data Admit Date/Time: 01/31/21 16:09 Attending Provider: Tee Cardoso Admit Provider: Walker Munoz Primary Care Provider: [place] Other Providers: Nick Holly ; Lili Rodríguez ; Omer Carter ; David Parrish ; Silas Rodríguez I. 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 transplanted heart: [place] heart Associated angina: without angina Anemia D64.9 Anemia type: unspecified type
== END 2021-02-06 19:21 | DRG 592 ==
LOC: ED 21:03 → 3W 21:03 → SUATTDRO 23:48 → 3W 01-31 01:04 → SUATTDRO 01-31 16:09

== ENCOUNTER 2021-05-18 14:58 | Inpatient (IN) ==
[2021-05-18] MEDS ORDERED: ACETAMINOPHEN 500 MG TAB PO STA (15:34)
[2021-05-18] MEDS ORDERED: SODIUM CHLORIDE 0.9% 1000ML 1,000 ML IV ONE ×2 (15:37→19:45)
--- NOTE | 2021-05-18 16:04 | XRay Report ---
XR chest 1V portable CLINICAL HISTORY: SEPSIS COMPARISON STUDY: Chest radiograph January 30, 2021. FINDINGS: Lung volumes are normal. Lungs are clear. There is no pneumothorax or pleural effusion. The re is mild enlargement of the cardiac silhouette. Mediastinal contours are normal. There is no eviden ce for pulmonary edema. Incidental note is made of postoperative findings within the cervical spine. IMPRESSION: Pulmonary vascular congestion without overt pulmonary edema. ACT 112: Negative or not required by law. Electronically signed by: Maynor Gonzalez M.D. 05/18/2021 4:03 PM
--- NOTE | 2021-05-18 16:07 | Emergency Department Note ---
Impression & Plan Febrile illness, acute ED Provider Note INFORMANT: Patient ED PROVIDER(S): Nick Lawrence MD CHIEF COMPLAINT: Fever PLAN: Disposition: Admitted Condition: Guarded Outpatient prescription management: none Referral: None MEDICAL DECISION MAKING: Patient presented because of fever. She was febrile and has an altered mental status. She was made a sepsis alert. The patient had blood work obtained. She was given IV fluids, 30 mL/kg. She received meropenem and vancomycin after con sultation with the ED pharmacist because of her history of MRSA and ESBL. The patient did well with the above treatment. She had a marked leukocytosis and anemia on her CBC. Patient's ECG showed nonspecific changes in the ST segments anterolaterally. Chest x-ray was unremarkable. Head CT was negative. The patient's CT scan of the abdomen pelvis redemonstrated changes of osteomyelitis in the sacrum and a mass in the pelvis which was unchanged. [facility] He evaluated patient for admission. After internal medicine evaluation the patient blood pressure did drop. She was ordered another liter of fluid by me. I did notify Dr. Singer and he reevaluated the patient for further management. Triage Nursing notes reviewed and agree them. Vital Signs: reviewed and remarkable for fever Differential diagnosis: Infection, hypoglycemia, electrolyte abnormalities, overdose, toxicologic, cardiac sources, intracerebral event, neurologic, trauma, as well as other pathologies. Diagnostics interpreted by me: ECG: Twelve-lead ECG was normal sinus rhythm at [address] changes anterolaterally. Low voltage QRS. Cardiac Monitoring: Cardiac monitoring ordered by me: The patient was placed on continuous cardiac monitoring and observed. It revealed a normal sinus rhythm at 82 beats per minute without ectopy or evidence of dysrhythmia. Imaging studies: CT scans and chest x-ray as above. I refer you to the EMR for further details. HPI: The patient is a 75 year old female who presents to the Emergency Room with complaints of change in mental status. This started yesterday and is persisting. The patient is from [facility]. The facility also notes the following associated symptoms, fever, contracted right arm. Patient had a rapid Covid test performed at the facility and was negative. She does have a chronic indwelling [place]. She has a history of ESBL and MRSA infection. The patient has was given no medication for relieving factors. Patient denies any current pain. Patient denies headache, chest pain, abdominal pain, back pain. History is somewhat limited because of patient's mental status. ROS: See above HPI for pertinent positives & negatives. A total of 10 systems reviewed and were otherwise negative. PAST MEDICAL HISTORY:See Below , urinary tract infection, quadriplegia, osteomyelitis PAST SURGICAL HISTORY:See Below, FAMILY HISTORY:See Below SOCIAL HISTORY:See Below, patient originally from [place]. Resides in nursing facility. HOME MEDICATIONS:See Below ALLERGIES:See Below VITALS:See Below PHYSICAL EXAMINATION: GENERAL: Awake, tired -appearing, in no distress HENT: Normocephalic, atraumatic. Oropharynx unremarkable. EYES: Normal conjunctiva. Sclera non-icteric. NECK: Inspection normal. Non-tender. Supple. No nuchal rigidity. FROM. No masses. RESPIRATORY: Clear to auscultation. No wheezes. No rales. Normal respiratory effort. CARDIAC: Normal rate. Normal rhythm. No murmurs. No rubs. Extremities warm and well perfused. Pulses equal. No JVD. GI: Soft, non-distended. No tenderness to palpation. No rebound or guarding. No masses. RECTAL: Deferred. MUSCULOSKELETAL: Atraumatic. Chest examination reveals no tenderness. The back is symmetrical on inspection without obvious abnormality. There is no CVA te nderness to palpation. No joint edema. LOWER EXTREMITIES: Calves are equal size bilaterally and non-tender. No edema. No discoloration. NEURO: Mildly confused sensorium. No sensory deficit noted. Contracture of the right upper extremity noted. Patient does withdrawal legs to stimuli. SKIN: No rash or jaundice noted. CRITICAL CARE: I have personally spent greater than 30 minutes of critical care time in the direct management of this patient. This includes bedside care, interpretation of diagnostic studies, and testing, discussion with consultants, patient, and other required patient management activities. These minutes are in excess of all separately billable procedures. 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) MRSA (methicillin resistant staph aureus) culture positive Myelodysplasia (myelodysplastic syndrome) Neurogenic bowel Pneumonia Respiratory failure, post-operative Seasonal asthma Thrombocytopenia UTI (urinary tract infection) Surgical History (Updated 04/10/21 @ 14:57 by Nereida Palomino RN) H/O excision of lamina of cervical vertebra for decompression of spinal cord H/O percutaneous transluminal coronary angioplasty History of esophagogastroduodenoscopy (EGD) History of right nephrectomy History of thyroidectomy Hx of colonoscopy S/P cardiac catheterization S/P cervical spinal fusion S/P cholecystectomy Social History (Updated 04/10/21 @ 09:48 by Nereida Palomino, BOBO) Smoking Status: Never smoker Hx Alcohol Use: No Hx Substance Use: No Preferred Language: Ethiopian Communication Ability: Impaired Case Manager Required: No Beliefs That Will Affect Care: None marital status: / Current Living Situation: Correction Current Living Situation Comment: [facility] current occupational status: disabled Feels Safe at Home: Yes Safety Concerns: Feels Safe At This Time caffeine: Yes Physical Activity Frequency: Does not Exercise Assistive Devices: Glasses and Special Shoe Allergies Allergies Allergy/AdvReac Type Severity Reaction Status Date / Time acesulfame Allergy Unknown Unknown Verified 05/18/21 16:31 aspartame Allergy Unknown Unknown Verified 05/18/21 16:31 [From [employer] me to the [facility] Aspartame] saccharin Allergy Unknown Unknown Verified 05/18/21 16:31 sucralose Allergy Unknown Unknown Verified 05/18/21 16:31 mold Allergy Unknown Verified 05/18/21 16:31 pollen extracts Allergy Unknown Verified 05/18/21 16:31 Home Meds Home Medications Medication Instructions Recorded Confirmed acetaminophen 325 mg tablet 650 mg PO Q6 PRN 01/30/21 05/18/21 (Tylenol) albuterol sulfate 90 mcg/actuation 2 puff INHALATION Q4 PRN 01/30/21 05/18/21 aerosol inhaler (Proventil HFA) ascorbic acid (vitamin C) 500 mg 500 mg PO BID 01/30/21 05/18/21 tablet (Vitamin C) baclofen 10 mg tablet 10 mg PO HS 01/30/21 05/18/21 baclofen 5 mg tablet 5 mg PO BID 01/30/21 05/18/21 bisacodyl 10 mg rectal suppository 10 mg [place] UD PRN 01/30/21 05/18/21 (Dulcolax (bisacodyl)) ezetimibe 10 mg tablet (Zetia) 10 mg PO DAILY 01/30/21 05/18/21 gabapentin 100 mg capsule 100 mg PO TID 01/30/21 05/18/21 insulin aspart U-100 100 unit/mL 0 sliding scale dose SUBCUT UD 01/30/21 05/18/21 subcutaneous solution (Novolog U-100 Insulin aspart) insulin glargine 100 unit/mL 20 unit SUBCUT QPM 01/30/21 05/18/21 subcutaneous solution (Lantus U-100 Insulin) magnesium oxide 400 mg PO DAILY 01/30/21 05/18/21 metoprolol tartrate 50 mg tablet 50 mg PO Q12 01/30/21 05/18/21 multivitamin 1 tab PO DAILY 01/30/21 05/18/21 ondansetron HCl 4 mg tablet 4 mg PO Q6H PRN 01/30/21 05/18/21 (Zofran) peg 400-propylene glycol 0.4 %-0.3 1 drp OPHTHALMIC (EYE) QPM 01/30/21 05/18/21 % eye gel drops (Systane Gel) polyethylene glycol 3350 17 gram 17 g PO DAILY 01/30/21 05/18/21 oral powder packet (Miralax) protein 1 ea PO TID #0 01/30/21 05/18/21 Saccharomyces boulardii 250 mg 250 mg PO BID 04/17/21 05/18/21 capsule (Florastor) bismuth subsalicylate 262 mg/15 mL 524 mg PO QID 04/26/21 05/18/21 oral suspension (Pepto-Bismol) sodium phosphates 19 gram-7 118 ml [place] DAILY PRN 04/26/21 05/18/21 gram/197 mL enema (Fleet Enema Extra) benzonatate 200 mg capsule 200 mg PO TID 05/13/21 05/18/21 fluticasone propionate 50 2 spray INTRANASAL DAILY 05/18/21 05/18/21 mcg/actuation nasal spray,suspension Previous Rx's Medication Instructions Recorded fluconazole 100 mg tablet 200 mg PO DAILY 30 Days #60 tab 02/06/21 collagenase clostridium histo. 250 1 applic TOPICAL DAILY 14 Days #90 04/17/21 unit/gram topical ointment (Santyl) g Results & Data (ED) Vital Signs Vital Signs - 24 hr 05/18/21 15:12 05/18/21 15:30 05/18/21 16:00 Temperature 39.4 C H Temperature Source Oral Pulse Rate 95 H 78 78 Pulse Rate from SpO2 Sensor 78 76 Pulse Rhythm Regular Pulse Strength Normal Respiratory Rate 26 H 22 23 Respiratory Effort / Characteristics Non-Labored Respiratory Depth Normal Respiratory Pattern Regular Blood Pressure 123/72 112/62 90/60 L Blood Pressure Mean 89 78 70 Blood Pressure Position Lying Pulse Oximetry 95 95 94 Oxygen Delivery Method Room Air Sepsis Recent Fever Within 48 Hours Yes Sepsis New/Unexplained Change in Mental Status Yes Sepsis Action Taken by Nursing No Action Required 05/18/21 16:30 05/18/21 17:00 05/18/21 17:30 Temperature Temperature Source Pulse Rate 77 70 72 Pulse Rate from SpO2 Sensor 76 72 73 Pulse Rhythm Pulse Strength Respiratory Rate 22 19 17 Respiratory Effort / Characteristics Respiratory Depth Respiratory Pattern Blood Pressure 102/60 102/56 L 86/51 L Blood Pressure Mean 74 71 62 Blood Pressure Position Pulse Oximetry 96 95 96 Oxygen Delivery Method Sepsis Recent Fever Within 48 Hours Sepsis New/Unexplained Change in Mental Status Sepsis Action Taken by Nursing 05/18/21 18:00 Temperature Temperature Source Pulse Rate 67 Pulse Rate from SpO2 Sensor 68 Pulse Rhythm Pulse Strength Respiratory Rate 17 Respiratory Effort / Characteristics Respiratory Depth Respiratory Pattern Blood Pressure 102/61 Blood Pressure Mean 74 Blood Pressure Position Pulse Oximetry 95 Oxygen Delivery Method Sepsis Recent Fever Within 48 Hours Sepsis New/Unexplained Change in Mental Status Sepsis Action Taken by Nursing Laboratory Data Result diagrams: 05/18/21 16:05 05/18/21 16:05 Lab Results 05/18/21 05/18/21 05/18/21 Range/Units 16:05 16:05 16:05 WBC 18.54 H (4.8-10.8) K/uL RBC 3.00 L (4.2-5.4) M/uL Hgb 11.1 L (12.0-16.0) g/dL Hct 33.6 L (37-47) % MCV 112.0 H (80-100) fL MCH 37.0 H (25-34) pg MCHC 33.0 (32-36) g/dL RDW Std Deviation 62.3 H (36.4-46.3) fL RDW Coeff of Alicia 15.5 H (11.5-14.5) % Plt Count 442 H (130-400) K/uL MPV 10.1 (7.4-10.4) fL Immature Gran % (Auto) 0.5 % Neut % (Auto) 91.5 % Lymph % (Auto) 3.1 % [place] % (Auto) 3.7 % Eos % (Auto) 1.0 % Baso % (Auto) 0.2 % Neut # (Auto) 16.97 H (1.4-6.5) K/uL Lymph # (Auto) 0.57 L (1.2-3.4) K/uL [place] # (Auto) 0.68 H (0.11-0.59) K/uL Eos # (Auto) 0.19 (0-0.5) K/uL Baso # (Auto) 0.04 (0-0.2) K/uL Immature Gran # (Auto) 0.09 H (0.00-0.02) K/uL Polychromasia 1+ Macrocytosis Present Tear Drop Cells 1+ PT 10.4 (9.0-12.0) Seconds INR 1.0 (0.9-1.1) APTT 24.7 (21.0-31.0) Seconds PTT Ratio 0.9 Sodium 136 (136-145) mmol/L Potassium 4.6 (3.5-5.1) mmol/L Chloride 104 (98-107) mmol/L Carbon Dioxide 25 (21-32) mmol/L Anion Gap 7.0 (3-11) BUN 22 H (7-18) mg/dl Creatinine 1.54 H (0.6-1.2) mg/dl Est Cr Clr Drug Dosing Not Reportable Est GFR ( Amer) 38.1 ml/min Est GFR (Non-Af Amer) 32.9 ml/min BUN/Creatinine Ratio 14.4 (10-20) Glucose 335 H* (70-99) mg/dl Lactate (0.4-2.0) mmol/L Calcium 8.8 (8.5-10.1) mg/dl Magnesium 2.2 (1.8-2.4) mg/dl Total Bilirubin 0.4 (0.2-1) mg/dl AST 17 (15-37) U/L ALT 18 (12-78) U/L Alkaline Phosphatase 89 (45-117) U/L Troponin I < 0.015 (0-0.045) ng/ml Total Protein 7.3 (6.4-8.2) gm/dl Albumin 2.7 L (3.4-5.0) gm/dl Globulin 4.6 H (2.5-4.0) gm/dl Albumin/Globulin Ratio 0.6 L (0.9-2) Beta-Hydroxybutyric Acd 2.50 (0.2-2.81) mg/dl Urine Color Urine Appearance (Clear) Urine pH (4.5-7.5) Ur Specific [place] (1.000-1.030) Urine Protein (Negative) Urine Glucose (UA) (Negative) Urine Ketones (Negative) Urine Blood (Negative) Urine Nitrite (Negative) Urine Bilirubin (Negative) Urine Urobilinogen (Negative) Ur Leukocyte Esterase (Negative) Urine WBC (Auto) (0-5) /hpf Urine RBC (Auto) (0-4) /hpf U Hyaline Cast (Auto) (0-5) /lpf U Epithel Cells (Auto) (0-5) /lpf Urine Bacteria (Auto) (Negative) 05/18/21 05/18/21 Range/Units 16:05 17:03 WBC (4.8-10.8) K/uL RBC (4.2-5.4) M/uL Hgb (12.0-16.0) g/dL Hct (37-47) % MCV (80-100) fL MCH (25-34) pg MCHC (32-36) g/dL RDW Std Deviation (36.4-46.3) fL RDW Coeff of Alicia (11.5-14.5) % Plt Count (130-400) K/uL MPV (7.4-10.4) fL Immature Gran % (Auto) % Neut % (Auto) % Lymph % (Auto) % [place] % (Auto) % Eos % (Auto) % Baso % (Auto) % Neut # (Auto) (1.4-6.5) K/uL Lymph # (Auto) (1.2-3.4) K/uL [place] # (Auto) (0.11-0.59) K/uL Eos # (Auto) (0-0.5) K/uL Baso # (Auto) (0-0.2) K/uL Immature Gran # (Auto) (0.00-0.02) K/uL Polychromasia Macrocytosis Tear Drop Cells PT (9.0-12.0) Seconds INR (0.9-1.1) APTT (21.0-31.0) Seconds PTT Ratio Sodium (136-145) mmol/L Potassium (3.5-5.1) mmol/L Chloride (98-107) mmol/L Carbon Dioxide (21-32) mmol/L Anion Gap (3-11) BUN (7-18) mg/dl Creatinine (0.6-1.2) mg/dl Est Cr Clr Drug Dosing Est GFR ( Amer) ml/min Est GFR (Non-Af Amer) ml/min BUN/Creatinine Ratio (10-20) Glucose (70-99) mg/dl Lactate 2.4 H* (0.4-2.0) mmol/L Calcium (8.5-10.1) mg/dl Magnesium (1.8-2.4) mg/dl Total Bilirubin (0.2-1) mg/dl AST (15-37) U/L ALT (12-78) U/L Alkaline Phosphatase (45-117) U/L Troponin I (0-0.045) ng/ml Total Protein (6.4-8.2) gm/dl Albumin (3.4-5.0) gm/dl Globulin (2.5-4.0) gm/dl Albumin/Globulin Ratio (0.9-2) Beta-Hydroxybutyric Acd (0.2-2.81) mg/dl Urine Color Dark Yellow Urine Appearance Cloudy A (Clear) Urine pH 5.0 (4.5-7.5) Ur Specific [place] 1.028 (1.000-1.030) Urine Protein 2+ H (Negative) Urine Glucose (UA) Negative (Negative) Urine Ketones Trace H (Negative) Urine Blood 2+ H (Negative) Urine Nitrite Positive A (Negative) Urine Bilirubin Negative (Negative) Urine Urobilinogen Negative (Negative) Ur Leukocyte Esterase 2+ H (Negative) Urine WBC (Auto) >30 H (0-5) /hpf Urine RBC (Auto) 0-4 (0-4) /hpf U Hyaline Cast (Auto) 1-5 (0-5) /lpf U Epithel Cells (Auto) 0-5 (0-5) /lpf Urine Bacteria (Auto) 4+ H (Negative) Administered Medications Baclofen (Baclofen 10 Mg Tab) 10 mg PO HS DEREK Stop: 06/17/21 21:46 Last Admin: 05/18/21 22:39 Dose: 10 mg Documented by: [id number] Benzonatate (Benzonatate 100 Mg Capsule) 200 mg PO TID DEREK Stop: 06/17/21 21:46 Last Admin: 05/18/21 22:39 Dose: 200 mg Documented by: [id number] Enoxaparin Sodium (Enoxaparin Inj 30 Mg/0.3 Ml Syr) 30 mg SQ Q24H DEREK Stop: 06/17/21 21:59 Last Admin: 05/18/21 22:40 Dose: 30 mg Documented by: [id number] Gabapentin (Gabapentin 100 Mg Cap) 100 mg PO TID DEREK Stop: 06/17/21 21:46 Last Admin: 05/18/21 22:39 Dose: 100 mg Documented by: [id number] Meropenem 500 mg/ Syringe 10 mls @ 2 mls/min IV Q6H [facility]; Protocol Stop: 05/20/21 16:44 Last Admin: 05/18/21 22:39 Dose: 2 mls/min Documented by: [id number] Admin: 05/18/21 17:35 Dose: 2 mls/min Documented by: [id number] Potassium Chloride/Sodium Chloride (Normal Saline W/20 Meq Kcl) 20 meq in 1,000 mls @ 100 mls/hr IV .Q10H DEREK Stop: 05/19/21 18:14 Last Admin: 05/18/21 22:40 Dose: 100 mls/hr Documented by: [id number] Insulin Aspart (Insulin Aspart 100 Units/Ml 3 Ml Pen) 0 units SC ACHS DEREK Stop: 06/17/21 21:59 Last Admin: 05/18/21 22:40 Dose: 4 units Documented by: [id number] Cosigned by: [id number] Insulin Glargine (Insulin Glargine Solostar 100 Units/Ml 3 Ml Pen) 20 units SC HS DEREK Stop: 06/17/21 21:59 Last Admin: 05/18/21 22:40 Dose: 20 units Documented by: [id number] Cosigned by: [id number] Metoprolol Tartrate (Metoprolol Tartrate 50 Mg Tab) 50 mg PO Q12 DEREK Stop: 06/17/21 21:46 Last Admin: 05/18/21 22:30 Dose: Not Given Documented by: [id number] Saccharomyces Boulardii (Saccharomyces Boulardii 250 Mg Cap) 250 mg PO BID DEREK Stop: 06/17/21 21:46 Last Admin: 05/18/21 22:39 Dose: 250 mg Documented by: [id number] Discontinued Medications Sodium Chloride (Nss 1000ml) 1,000 mls @ 999 mls/hr IV .Q1H1M ONE Stop: 05/18/21 16:37 Last Infusion: 05/18/21 17:36 Dose: 0 mls/hr Documented by: [id number] Admin: 05/18/21 16:34 Dose: 999 mls/hr Documented by: [id number] Acetaminophen (Ofirmev) 1,000 mg in 100 mls @ 400 mls/hr IV NOW ONE Stop: 05/18/21 16:44 Last Infusion: 05/18/21 16:51 Dose: 0 mls/hr Documented by: [id number] Admin: 05/18/21 16:35 Dose: 400 mls/hr Documented by: [id number] Vancomycin HCl (Vancomycin Hcl) 1,000 mg in 270 mls @ 125 mls/hr IV NOW STA Stop: 05/18/21 18:54 Last Infusion: 05/18/21 19:45 Dose: 0 mls/hr Documented by: [id number] Admin: 05/18/21 17:35 Dose: 125 mls/hr Documented by: [id number] Sodium Chloride (Nss 1000ml) 500 mls @ 999 mls/hr IV .Q31M ONE Stop: 05/18/21 17:17 Last Infusion: 05/18/21 18:07 Dose: 0 mls/hr Documented by: [id number] Admin: 05/18/21 17:35 Dose: 999 mls/hr Documented by: [id number] Sodium Chloride (Nss 1000ml) 1,000 mls @ 999 mls/hr IV .Q1H1M ONE Stop: 05/18/21 20:45 Last Infusion: 05/18/21 20:50 Dose: 0 mls/hr Documented by: [id number] Admin: 05/18/21 19:48 Dose: 999 mls/hr Documented by: [id number] Insulin Human Regular (Novolin-R Insulin Per Unit Charge) 6 units IV NOW STA Stop: 05/18/21 17:25 Last Admin: 05/18/21 18:31 Dose: 6 units Documented by: [id number] Cosigned by: [id number] Imaging Data Radiologist's Impression: Chest X-Ray 05/18/21 15:35 XR chest 1V portable CLINICAL HISTORY: SEPSIS COMPARISON STUDY: Chest radiograph January 30, 2021. FINDINGS: Lung volumes are normal. Lungs are clear. There is no pneumothorax or pleural effusion. There is mild enlargement of the cardiac silhouette. Mediastinal contours are normal. There is no evidence for pulmonary edema. Incidental note is made of postoperative findings within the cervical spine. IMPRESSION: Pulmonary vascular congestion without overt pulmonary edema. ACT 112: Negative or not required by law. Electronically signed by: Maynor Gonzalez M.D. 05/18/2021 4:03 PM Abdomen/Pelvis CT 05/18/21 16:47 CT OF THE ABDOMEN AND PELVIS WITHOUT CONTRAST CLINICAL HISTORY: Altered mental status. COMPARISON STUDY: CT of the abdomen and pelvis February 01, 2021. TECHNIQUE: Axial images of the abdomen and pelvis were obtained without IV contrast. Images were reviewed in the axial, sagittal, and coronal planes. Automated exposure control was utilized for the study. A dose lowering technique was utilized adhering to the principles of ALARA. FINDINGS: No pneumatosis, free air or portal venous gas is present. Evaluation of the abdomen and pelvis is suboptimal on this unenhanced examination. There is no biliary ductal dilatation status post cholecystectomy. A 2.4 cm low- attenuation right adrenal nodule is unchanged. This is likely benign. Right kidney is not visualized and likely surgically absent. Unenhanced images of the left adrenal gland, left kidney and pancreas are unremarkable. There is no evidence for a bowel obstruction. A [place] balloon within the bladder is noted. A septated 6.4 cm left adnexal cystic lesion is again noted. This is similar to prior exam. A large sacral decubitus ulcer is again noted. This was shown on prior CT and MRI. Mild body wall edema is noted within the pelvis and proximal thighs. No fluid collection is identified to suggest an abscess. As before, the inferior most aspect of the sacrum and several proximal coccygeal segments are not visualized. This is similar to prior CT and MRI. Prominent bilateral ingui nal lymph nodes are unchanged and are likely reactive. IMPRESSION: 1. Redemonstration of a sacral decubitus ulcer which was shown on prior CT and MRI. Absent inferior sacrum and several proximal coccygeal segments which is unchanged since prior CT. This likely reflects chronic sequela of osteomyelitis. No fluid collection to suggest abscess. 2. No bowel obstruction. 3. Redemonstration of a 6 cm septated left adnexal cystic lesion. This remains indeterminate. ACT 112: Negative or not required by law. Electronically signed by: Maynor Gonzalez M.D. 05/18/2021 6:[address] 05/18/21 16:47 CT OF THE HEAD WITHOUT CONTRAST CLINICAL HISTORY: Altered mental status. COMPARISON STUDY: No previous studies for comparison. TECHNIQUE: Helical axial images of the head were obtained without IV contrast. Automated exposure control was utilized for the study. A dose lowering technique was utilized adhering to the principles of ALARA. FINDINGS: No acute intracranial hemorrhage, midline shift or mass effect is present. White matter hypodensity suggests small vessel disease. The ventricular system is unremarkable. The basal cisterns are patent. No extra-axial collections are present. There are no findings to suggest acute dural sinus thrombosis or acute territorial infarct. No significant calvarial abnormalities are present. Visualized portions of the sinuses and mastoid air cells are clear. IMPRESSION: No acute intracranial findings. ACT 112: Negative or not required by law. Electronically signed by: Maynor Gonzalez M.D. 05/18/2021 6:35 PM Discharge Plan Visit Data Chief Complaint: Illness Stated Complaint: Illness ED Provider: Nick Lawrence Discharge Problem: Febrile illness, acute Patient Disposition: Admitted As Inpatient Discharge Instructions Interventions: ED Discharge Assessment Last Done: 05/18/21 21:42
[2021-05-18 16:16] LABS: Basophils # (auto) 0.04 K/uL (0-0.2); Basophils % (auto) 0.2 %; Eosinophils # (auto) 0.19 K/uL (0-0.5); Hematocrit (blood only) 33.6 % (37-47); Hemoglobin 11.1 g/dL (12.0-16.0); Immature Granulocytes # (auto) 0.09 K/uL (0.00-0.02); Immature Granulocytes % (auto) 0.5 %; Lymphocytes # (auto) 0.57 K/uL (1.2-3.4); Lymphocytes % (auto) 3.1 %; Mean Platelet Volume 10.1 fL (7.4-10.4); Monocytes # (auto) 0.68 K/uL (0.11-0.59); Monocytes % (auto) 3.7 %; Neutrophils # (auto) 16.97 K/uL (1.4-6.5); Neutrophils % (auto) 91.5 %; Platelet Count 442 K/uL (130-400); RDW Coefficient of Variation 15.5 % (11.5-14.5); RDW Standard Deviation 62.3 fL (36.4-46.3); White Blood Count 18.54 K/uL (4.8-10.8)
[2021-05-18 16:26] LABS: Partial Thromboplastin Ratio 0.9; Partial Thromboplastin Time 24.7 Seconds (21.0-31.0); Prothrombin Time 10.4 Seconds (9.0-12.0)
[2021-05-18] MEDS ORDERED: ACETAMINOPHEN 1,000 MG/100 ML VIAL IV ONE (16:30)
[2021-05-18 16:39] LABS: Alanine Aminotransferase 18 U/L (12-78); Albumin Globulin Ratio 0.6 (0.9-2); Albumin Level 2.7 gm/dl (3.4-5.0); Alkaline Phosphatase 89 U/L (45-117); Aspartate Aminotransferase 17 U/L (15-37); BUN Creatinine Ratio 14.4 (10-20); Bilirubin,Total 0.4 mg/dl (0.2-1); Blood Urea Nitrogen 22 mg/dl (7-18); Calcium 8.8 mg/dl (8.5-10.1); Chloride 104 mmol/L (98-107); Est GFR (African American) 38.1 ml/min; Est GFR (Non-African American) 32.9 ml/min; Globulin 4.6 gm/dl (2.5-4.0); Magnesium 2.2 mg/dl (1.8-2.4); Potassium 4.6 mmol/L (3.5-5.1); Sodium 136 mmol/L (136-145); Troponin I < 0.015 ng/ml (0-0.045)
[2021-05-18 16:40] LABS: Carbon Dioxide 25 mmol/L (21-32); Total Protein 7.3 gm/dl (6.4-8.2)
[2021-05-18 16:42] LABS: Macrocytosis Present; Polychromasia 1+; Tear Drop Cells 1+
[2021-05-18] MEDS ORDERED: VANCOMYCIN HCL 1,000 MG/270 ML BAG IV STA (16:45)
[2021-05-18] MEDS ORDERED: MEROPENEM CONSULT ACITVE PRN (16:45)
[2021-05-18] MEDS ORDERED: VANCOMYCIN CONSULT ACTIVE PRN (16:45)
[2021-05-18] MEDS ORDERED: SODIUM CHLORIDE 0.9% 1000ML 500 ML IV ONE (16:47)
[2021-05-18 16:53] LABS: Glucose 335 mg/dl (70-99)
[2021-05-18 17:14] LABS: Appearance Urine Cloudy (Clear); Bacteria Urine Automated 4+ (Negative); Bilirubin Urine Negative (Negative); Blood Urine 2+ (Negative); Color Urine Dark Yellow; Epithelial Cell Urine Auto 0-5 /lpf (0-5); Glucose Urine UA Negative (Negative); Ketones Urine Trace (Negative); Leukocyte Esterase Urine 2+ (Negative); Nitrite Urine Positive (Negative); Protein Urine 2+ (Negative); RBC Urine Automated 0-4 /hpf (0-4); Specific Gravity Urine 1.028 (1.000-1.030); Urobilinogen Urine Negative (Negative); WBC Urine Automated >30 /hpf (0-5)
[2021-05-18] MEDS ORDERED: NovoLIN-R INSULIN PER UNIT CHARGE IV STA (17:24)
[2021-05-18] MEDS: MEROPENEM 500 MG in SYRINGE 0 ML IV SCH ×2 (17:35→22:39)
--- NOTE | 2021-05-18 17:55 | History & Physical Report ---
Date of Service May 18, 2021 Assessment & Plan (1) UTI (urinary tract infection): Plan: Anette Antonio is a 75-year-old female with a history of quadriplegia, hypertension, hypothyroid, type 2 diabetes, CAD, and past UTIs which included ESBL and MRSA who presented with fever and altered mental status from [facility] as a code sepsis and who is admitted for urosepsis. AMS - Suspect 2/2 sesis - CT-H pending Sepsis 2/2 urinary tract infection Altered mental status due to urosepsis, per patient's daughter patient is with normal cognition and well oriented at baseline White blood cell count elevated to 18 Lactate elevated to 2.4, repeat pending Patient with chronic indwelling [place] due to quadriplegia UA infected appearing with positive bacteria 4+, leukocyte esterase, white blood cells, and nitrate UC pending CXR: Pulmonary vascular congestion without edema, no consolidation or findings consistent with infection/pneumonia BC pending Prior ESBL/MRSA culture is reviewed by ED pharmacy. Recommend meropenem and vancomycin at this time pending additional culture sensitivities CTabdomen: Pending for pyelonephritis evaluation Covid negative Transaminases normal. Troponin negative EKG normal sinus rhythm, no acute ST segment changes, nonspecific T wave inversion appreciated in anterior lateral leads. - Pt requiring additional NSS bolus at time of transfer, case signed out to night provider to watch and may require ICU level of care if BP does not improve with above. (2) Sepsis: Plan: - suspect 2/2 UTI - AMS, tachycardic, elevated lactate - Management as noted for UTI. Recieved 30cc/kg NSS and abx, BC, UC, lactate trended (3) ALIX (acute kidney injury): Plan: ALIX versus prerenal azotemia In the setting of urosepsis Right kidney surgically absent Creatinine baseline approximately 1.11.2 Creatinine elevated to 1.54 on admission Received fluid resuscitation 1.5 L NSS in ED Renally dose medications, repeat BMP (4) CAD (coronary artery disease): Plan: CAD with history of PCI Continue metoprolol tartrate 50 mg daily Had been taken off lisinopril in the past daughter is not sure why. Reports she was on Plavix in the past, this was discontinued while she had temporary treatment for a blood clot on a blood thinner. Anticoagulation was stopped, daughter thinks that Plavix was not readdressed. - Plaavix 75mg qAM (5) Diabetes type 2, controlled: Plan: Type 2 diabetes Patient on Lantus 20 units every afternoon, SSI prior to admission Continue basal bolus, Lantus 20 units every afternoon sliding scale goal range [id number], CF 55, ratio 20 Glucose checks AC/at bedtime (6) HTN (hypertension): Plan: Hypertension Continue metoprolol home dosing (7) Hypothyroid: Plan: Hypothyroidism TSH normal 01/16, elevated TSH 1 month prior Repeat TSH pending (8) Quadriplegia: Plan: Quadriplegia Developed following elective cervical spine surgery Continue baclofen 10 mg p.o. at bedtime, 5 mg p.o. twice daily Patient with spastic contractions at baseline, limited use of left shoulder only (9) Anemia: Plan: - Macrocytic - B12, Folate pending - No signs of active bleeding (10) Sacral wound: Plan: Stage IV pressure ulcers, sacral wound Wound care consulted Patient with history of pressure ulcers on ankles bilaterally, and sacral wound Plan: DVT PPx: Lovenox Diet: DM Dispo: PCU Code Status: Full Code, discussed with pt and surrogate. Daughter Anna is Medical POA. History of Present Illness Chief Complaint: AMS, Confusion, fever Primary Care Provider: [facility] Anette Antonio is a 75-year-old female with a history of quadriplegia, hypertension, hypothyroid, type 2 diabetes, CAD, and past UTIs which included ESBL and MRSA who presented with fever and altered mental status from [facility] as a code sepsis and who is admitted for urosepsis. Subjective is limited by somnolence, and reduced cognitive status. Per report patient was admitted [facility] with altered mental status and fever. She has quadriplegia following elective cervical surgery with incomplete quadriplegia immediately following procedure, and nonresolution following second surgery. At baseline she has limited flexion of her left arm at the shoulder, otherwise does not use intrinsic muscles of the right hand or bilateral lower extremities. Discussed care with her daughter Anna who reports she had been feeling 'overall poor' for 2-3 days. Today she was not answering questions n ormally (at baseline has NO dementia or AMS) and had a temperature which prompted her to be transferred to [facility]. Also has spastic muscle spasms at baseline which were absent day of admission. 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 Also risk of aspiration PNA. Hx of bed sores. Medical History: Reviewed Medications: Reviewed Surgical History: Reviewed Allergies: Reviewed Social History: No tobacco, etoh, or recreational drug use. Code Status: Full Code. Daughter Anna is POA, updated and case discussed as above. Allergies Allergy/AdvReac Type Severity Reaction Status Date / Time acesulfame Allergy Unknown Unknown Verified 05/18/21 16:31 aspartame Allergy Unknown Unknown Verified 05/18/21 16:31 [From Nutrasweet Aspartame] saccharin Allergy Unknown Unknown Verified 05/18/21 16:31 sucralose Allergy Unknown Unknown Verified 05/18/21 16:31 mold Allergy Unknown Verified 05/18/21 16:31 pollen extracts Allergy Unknown Verified 05/18/21 16:31 Home Medications Medication Instructions Recorded Confirmed Type acetaminophen 325 mg tablet 650 mg PO Q6 PRN 01/30/21 05/18/21 History (Tylenol) albuterol sulfate 90 mcg/actuation 2 puff INHALATION Q4 PRN 01/30/21 05/18/21 History aerosol inhaler (Proventil HFA) ascorbic acid (vitamin C) 500 mg 500 mg PO BID 01/30/21 05/18/21 History tablet (Vitamin C) baclofen 10 mg tablet 10 mg PO HS 01/30/21 05/18/21 History baclofen 5 mg tablet 5 mg PO BID 01/30/21 05/18/21 History bisacodyl 10 mg rectal suppository 10 mg SD UD PRN 01/30/21 05/18/21 History (Dulcolax (bisacodyl)) ezetimibe 10 mg tablet (Zetia) 10 mg PO DAILY 01/30/21 05/18/21 History gabapentin 100 mg capsule 100 mg PO TID 01/30/21 05/18/21 History insulin aspart U-100 100 unit/mL 0 sliding scale dose SUBCUT UD 01/30/21 05/18/21 History subcutaneous solution (Novolog U-100 Insulin aspart) insulin glargine 100 unit/mL 20 unit SUBCUT QPM 01/30/21 05/18/21 History subcutaneous solution (Lantus U-100 Insulin) magnesium oxide 400 mg PO DAILY 01/30/21 05/18/21 History metoprolol tartrate 50 mg tablet 50 mg PO Q12 01/30/21 05/18/21 History multivitamin 1 tab PO DAILY 01/30/21 05/18/21 History ondansetron HCl 4 mg tablet 4 mg PO Q6H PRN 01/30/21 05/18/21 History (Zofran) peg 400-propylene glycol 0.4 %-0.3 1 drp OPHTHALMIC (EYE) QPM 01/30/21 05/18/21 History % eye gel drops (Systane Gel) polyethylene glycol 3350 17 gram 17 g PO DAILY 01/30/21 05/18/21 History oral powder packet (Miralax) protein 1 ea PO TID #0 01/30/21 05/18/21 History fluconazole 100 mg tablet 200 mg PO DAILY 30 Days #60 tab 02/06/21 05/18/21 Rx Saccharomyces boulardii 250 mg 250 mg PO BID 04/17/21 05/18/21 History capsule (Florastor) collagenase clostridium histo. 250 1 applic TOPICAL DAILY 14 Days #90 04/17/21 05/18/21 Rx unit/gram topical ointment (Santyl) g bismuth subsalicylate 262 mg/15 mL 524 mg PO QID 04/26/21 05/18/21 History oral suspension (Pepto-Bismol) sodium phosphates 19 gram-7 118 ml SD DAILY PRN 04/26/21 05/18/21 History gram/197 mL enema (Fleet Enema Extra) benzonatate 200 mg capsule 200 mg PO TID 05/13/21 05/18/21 History fluticasone propionate 50 2 spray INTRANASAL DAILY 05/18/21 05/18/21 History mcg/actuation nasal spray,suspension Past Med/Surg History Medical History (Updated 05/18/21 @ 20:12 by David Lofton MD) Adnexal tumor Anemia CAD (coronary artery disease) [place] infection Cardiomyopathy Chronic incomplete quadriplegia Depression Diabetes type 2, controlled Dysphagia History of DVT (deep vein thrombosis) 02/26/20 LLE History of mechanical ventilation History of RI (myocardial infarction) 2004 History of renal cell cancer HTN (hypertension) Hyperlipemia Hypothyroid Insomnia Ischemic cardiomyopathy Major depressive disorder Mass of left thigh 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) MRSA (methicillin resistant staph aureus) culture positive Myelodysplasia (myelodysplastic syndrome) Neurogenic bowel Pneumonia Respiratory failure, post-operative Seasonal asthma Thrombocytopenia UTI (urinary tract infection) Surgical History (Updated 04/10/21 @ 14:57 by Nereida Palomino RN) H/O excision of lamina of cervical vertebra for decompression of spinal cord H/O percutaneous transluminal coronary angioplasty History of esophagogastroduodenoscopy (EGD) History of right nephrectomy History of thyroidectomy Hx of colonoscopy S/P cardiac catheterization S/P cervical spinal fusion S/P cholecystectomy Social History (Updated 04/10/21 @ 09:48 by Nereida Palomino RN) Smoking Status: Never smoker Hx Alcohol Use: No Hx Substance Use: No Preferred Language: [place] Communication Ability: Impaired Clothing Room Supervisor Required: No Beliefs That Will Affect Care: None marital status: / Current Living Situation: [facility] Current [facility] Situation Comment[facility] current occupational status: disabled Feels Safe at Home: Yes Safety Concerns: Feels Safe At This Time caffeine: Yes Physical Activity Frequency: Does not Exercise Assistive Devices: Glasses and Special Shoe Review of Systems Review of Systems: Review of systems limited by somnolence and reduced cognitive status. Replies "no" to whether she is having chest pain, chest pressure, shortness of breath, difficulty breathing, fever, chills, other pain, nausea, vomiting, diarrhea, or pain at her catheter site. Does not give spontaneous answers to questions, although does answer "yes "to whether she has a [place] to help her pee. Physical Exam Physical Exam: General: Oriented to name and place "hospital "only, not oriented to date, city, or state. No acute distress. Appears chronically ill, frail HEENT: Atraumatic, normocephalic. EOM intact without nystagmus. Opens eyes to voice, pupils equal and reactive to light bilaterally. Pulm: Diminished globally with moderate to poor air movement, no wheezes/rhonchi/rales appreciated. Symmetrical chest rise. No respiratory distress. Cardiac: RRR, -mrg. Radial pulses intact and symmetrical. Abdominal: Nontender, nondistended, soft. BS present. CRANIAL NERVES: II: Pupils equal and reactive, no relative afferent pupillary defect, no VF cuts III, IV, : EOM intact, no gaze preference or deviation, no nystagmus. V: normal sensation in V1, V2, and V3 segments bilaterally VII: no asymmetry, no nasolabial fold flattening VIII: normal hearing to speech IX, X: normal palatal elevation, no uvular deviation XII: midline tongue protrusion MOTOR: Extremely limited by somnolence. Patient able to lift left arm up slightly at the shoulder and with 1/5 activation of elbow flexion, otherwise 0/5 strength in right upper, bilateral lower extremities. Some spasticity flexion appreciated during exam. Patient does not withdraw to nail pinch or open eyes to nail pinch on hallux, thumbs. Endorses that she can feel soft touch in the hands and feet bilaterally, but unable to verbalize location of soft touch with eyes closed. Limited by somnolence/AMS. Results & Data Results & Data ([facility]) Vital Signs (Past 12 Hours) Vital Signs Temp Pulse Resp BP Pulse Ox 05/18/21 15:12 39.4 C H 95 H 26 H 123/72 95 Laboratory Results Abnormal lab results 05/18/21 05/18/21 05/18/21 Range/Units 16:05 16:05 16:05 WBC 18.54 H (4.8-10.8) K/uL RBC 3.00 L (4.2-5.4) M/uL Hgb 11.1 L (12.0-16.0) g/dL Hct 33.6 L (37-47) % MCV 112.0 H (80-100) fL MCH 37.0 H (25-34) pg RDW Std Deviation 62.3 H (36.4-46.3) fL RDW Coeff of Alicia 15.5 H (11.5-14.5) % Plt Count 442 H (130-400) K/uL Neut # (Auto) 16.97 H (1.4-6.5) K/uL Lymph # (Auto) 0.57 L (1.2-3.4) K/uL [place] # (Auto) 0.68 H (0.11-0.59) K/uL Immature Gran # (Auto) 0.09 H (0.00-0.02) K/uL BUN 22 H (7-18) mg/dl Creatinine 1.54 H (0.6-1.2) mg/dl Glucose 335 H* (70-99) mg/dl POC Glucose (70-99) mg/dl Lactate 2.4 H* (0.4-2.0) mmol/L Albumin 2.7 L (3.4-5.0) gm/dl Globulin 4.6 H (2.5-4.0) gm/dl Albumin/Globulin Ratio 0.6 L (0.9-2) Urine Appearance (Clear) Urine Protein (Negative) Urine Ketones (Negative) Urine Blood (Negative) Urine Nitrite (Negative) Ur Leukocyte Esterase (Negative) Urine WBC (Auto) (0-5) /hpf Urine Bacteria (Auto) (Negative) 05/18/21 05/18/21 05/18/21 Range/Units 17:03 18:45 19:23 WBC (4.8-10.8) K/uL RBC (4.2-5.4) M/uL Hgb (12.0-16.0) g/dL Hct (37-47) % MCV (80-100) fL MCH (25-34) pg RDW Std Deviation (36.4-46.3) fL RDW Coeff of Alicia (11.5-14.5) % Plt Count (130-400) K/uL Neut # (Auto) (1.4-6.5) K/uL Lymph # (Auto) (1.2-3.4) K/uL [place] # (Auto) (0.11-0.59) K/uL Immature Gran # (Auto) (0.00-0.02) K/uL BUN (7-18) mg/dl Creatinine (0.6-1.2) mg/dl Glucose (70-99) mg/dl POC Glucose 274 H (70-99) mg/dl Lactate 2.3 H* (0.4-2.0) mmol/L Albumin (3.4-5.0) gm/dl Globulin (2.5-4.0) gm/dl Albumin/Globulin Ratio (0.9-2) Urine Appearance Cloudy A (Clear) Urine Protein 2+ H (Negative) Urine Ketones Trace H (Negative) Urine Blood 2+ H (Negative) Urine Nitrite Positive A (Negative) Ur Leukocyte Esterase 2+ H (Negative) Urine WBC (Auto) >30 H (0-5) /hpf Urine Bacteria (Auto) 4+ H (Negative) Diagnostic Findings Chest X-Ray 05/18/21 15:35 XR chest 1V portable CLINICAL HISTORY: SEPSIS COMPARISON STUDY: Chest radiograph January 30, 2021. FINDINGS: Lung volumes are normal. Lungs are clear. There is no pneumothorax or pleural effusion. There is mild enlargement of the cardiac silhouette. Mediastinal contours are normal. There is no evidence for pulmonary edema. Incidental note is made of postoperative findings within the cervical spine. IMPRESSION: Pulmonary vascular congestion without overt pulmonary edema. ACT 112: Negative or not required by law. Electronically signed by: Maynor Gonzalez M.D. 05/18/2021 4:03 PM Abdomen/Pelvis CT 05/18/21 16:47 CT OF THE ABDOMEN AND PELVIS WITHOUT CONTRAST CLINICAL HISTORY: Altered mental status. COMPARISON STUDY: CT of the abdomen and pelvis February 01, 2021. TECHNIQUE: Axial images of the abdomen and pelvis were obtained without IV contrast. Images were reviewed in the axial, sagittal, and coronal planes. Automated exposure control was utilized for the study. A dose lowering technique was utilized adhering to the principles of ALARA. FINDINGS: No pneumatosis, free air or portal venous gas is present. Evaluation of the abdomen and pelvis is suboptimal on this unenhanced examination. There is no biliary ductal dilatation status post cholecystectomy. A 2.4 cm low- attenuation right adrenal nodule is unchanged. This is likely benign. Right kidney is not visualized and likely surgically absent. Unenhanced images of the left adrenal gland, left kidney and pancreas are unremarkable. There is no evidence for a bowel obstruction. A [place] balloon within the bladder is noted. A septated 6.4 cm left adnexal cystic lesion is again noted. This is similar to prior exam. A large sacral decubitus ulcer is again noted. This was shown on prior CT and MRI. Mild body wall edema is noted within the pelvis and proximal thighs. No fluid collection is identified to suggest an abscess. As before, the inferior most aspect of the sacrum and several proximal coccygeal segments are not visualized. This is similar to prior CT and MRI. Prominent bilateral inguinal lymph nodes are unchanged and are likely reactive. IMPRESSION: 1. Redemonstration of a sacral decubitus ulcer which was shown on prior CT and MRI. Absent inferior sacrum and several proximal coccygeal segments which is unchanged since prior CT. This likely reflects chronic sequela of osteomyelitis. No fluid collection to suggest abscess. 2. No bowel obstruction. 3. Redemonstration of a 6 cm septated left adnexal cystic lesion. This remains indeterminate. ACT 112: Negative or not required by law. Electronically signed by: Maynor Gonzalez M.D. 05/18/2021 6:[address] 05/18/21 16:47 CT OF THE HEAD WITHOUT CONTRAST CLINICAL HISTORY: Altered mental status. COMPARISON STUDY: No previous studies for comparison. TECHNIQUE: Helical axial images of the head were obtained without IV contrast. Automated exposure control was utilized for the study. A dose lowering technique was utilized adhering to the principles of ALARA. FINDINGS: No acute intracranial hemorrhage, midline shift or mass effect is present. White matter hypodensity suggests small vessel disease. The ventricular system is unremarkable. The basal cisterns are patent. No extra-axial collections are present. There are no findings to suggest acute dural sinus thrombosis or acute territorial infarct. No significant calvarial abnormalities are present. Visualized portions of the sinuses and mastoid air cells are clear. IMPRESSION: No acute intracranial findings. ACT 112: Negative or not required by law. Electronically signed by: Maynor Gonzalez M.D. 05/18/2021 6:35 PM Medications Administered Home Medications acetaminophen 325 mg tablet (Tylenol) 650 mg PO Q6 PRN 01/30/21 [History Confirmed 05/18/21] albuterol sulfate 90 mcg/actuation aerosol inhaler (Proventil HFA) 2 puff INHALATION Q4 PRN 01/30/21 [History Confirmed 05/18/21] ascorbic acid (vitamin C) 500 mg tablet (Vitamin C) 500 mg PO BID 01/30/21 [History Confirmed 05/18/21] baclofen 10 mg tablet 10 mg PO HS 01/30/21 [History Confirmed 05/18/21] baclofen 5 mg tablet 5 mg PO BID 01/30/21 [History Confirmed 05/18/21] bisacodyl 10 mg rectal suppository (Dulcolax (bisacodyl)) 10 mg SD UD PRN 01/30/21 [History Confirmed 05/18/21] ezetimibe 10 mg tablet (Zetia) 10 mg PO DAILY 01/30/21 [History Confirmed 05/18/21] gabapentin 100 mg capsule 100 mg PO TID 01/30/21 [History Confirmed 05/18/21] insulin aspart U-100 100 unit/mL subcutaneous solution (Novolog U-100 Insulin aspart) 0 sliding scale dose SUBCUT UD 01/30/21 [History Confirmed 05/18/21] insulin glargine 100 unit/mL subcutaneous solution (Lantus U-100 Insulin) 20 unit SUBCUT QPM 01/30/21 [History Confirmed 05/18/21] magnesium oxide 400 mg PO DAILY 01/30/21 [History Confirmed 05/18/21] metoprolol tartrate 50 mg tablet 50 mg PO Q12 01/30/21 [History Confirmed 05/18/21] multivitamin 1 tab PO DAILY 01/30/21 [History Confirmed 05/18/21] ondansetron HCl 4 mg tablet (Zofran) 4 mg PO Q6H PRN 01/30/21 [History Confirmed 05/18/21] peg 400-propylene glycol 0.4 %-0.3 % eye gel drops (Systane Gel) 1 drp OPHTHALMIC (EYE) QPM 01/30/21 [History Confirmed 05/18/21] polyethylene glycol 3350 17 gram oral powder packet (Miralax) 17 g PO DAILY 01/30/21 [History Confirmed 05/18/21] protein 1 ea PO TID #0 01/30/21 [History Confirmed 05/18/21] fluconazole 100 mg tablet 200 mg PO DAILY 30 Days #60 tab 02/06/21 [Rx Confirmed 05/18/21] Saccharomyces boulardii 250 mg capsule (Florastor) 250 mg PO BID 04/17/21 [History Confirmed 05/18/21] collagenase clostridium histo. 250 unit/gram topical ointment (Santyl) 1 applic TOPICAL DAILY 14 Days #90 g 04/17/21 [Rx Confirmed 05/18/21] bismuth subsalicylate 262 mg/15 mL oral suspension (Pepto-Bismol) 524 mg PO QID 04/26/21 [History Confirmed 05/18/21] sodium phosphates 19 gram-7 gram/197 mL enema (Fleet Enema Extra) 118 ml SD DAILY PRN 04/26/21 [History Confirmed 05/18/21] benzonatate 200 mg capsule 200 mg PO TID 05/13/21 [History Confirmed 05/18/21] fluticasone propionate 50 mcg/actuation nasal spray,suspension 2 spray INTRANASAL DAILY 05/18/21 [History Confirmed 05/18/21] Active Medications Meropenem 500 mg/ Syringe 10 mls @ 2 mls/min IV Q6H DEREK; Protocol Stop: 05/20/21 16:44 Last Admin: 05/18/21 17:35 Dose: 2 mls/min Documented by: Sodium Chloride (Nss 1000ml) 1,000 mls @ 999 mls/hr IV .Q1H1M ONE Stop: 05/18/21 20:45 Last Admin: 05/18/21 19:48 Dose: 999 mls/hr Documented by: Miscellaneous Information (Meropenem Consult Acitve) 1 ea N/A UD PRN PRN Reason: Consult Stop: 06/17/21 16:44 Miscellaneous Information (Vancomycin Consult Active) 1 ea N/A UD PRN PRN Reason: Consult Stop: 06/17/21 16:44 PG Care Time/CCT Total # of Minutes Spent Total Time Spent with Patient: Total time spent is greater than 50% in coordination of care (as documented) at patient's floor/unit and/or counseling patient: Coding Level of Care Code 47378 Initial Inpt Care Lvl 3 Diagnoses UTI (urinary tract infection) N39.0 Sepsis A41.9 CAD (coronary artery disease) I25.10 Coronary Disease-Associated Artery/Lesion type: [place] artery [place] vs. transplanted heart: [place] heart Associated angina: without angina Diabetes type 2, controlled E11.9 Diabetes mellitus intermediate designer insulin use: unspecified custodial insulin use status Diabetes mellitus complication status: without complication HTN (hypertension) I10 Hypertension type: unspecified Hypothyroid E03.9 Hypothyroidism type: unspecified Quadriplegia G82.50 Anemia D64.9 Anemia type: unspecified type Sacral wound S31.000A ALIX (acute kidney injury) N17.9 (1) CAD (coronary artery disease) Coronary Disease-Associated Artery/Lesion type: [place] artery [place] vs. transplanted heart: [place] heart Associated angina: without angina Qualified Code(s): I25.10 - Atherosclerotic heart disease of [place] coronary artery without angina pectoris (2) Diabetes type 2, controlled Diabetes mellitus intermediate designer insulin use: unspecified custodial insulin use status Diabetes mellitus complication status: without complication Qualified Code(s): E11.9 - Type 2 diabetes mellitus without complications (3) HTN (hypertension) Hypertension type: unspecified Qualified Code(s): I10 - Essential (primary) hypertension (4) Hypothyroid Hypothyroidism type: unspecified Qualified Code(s): E03.9 - Hypothyroidism, unspecified (5) Anemia Anemia type: unspecified type Qualified Code(s): D64.9 - Anemia, unspecified
--- NOTE | 2021-05-18 18:37 | CT Scan Report ---
CT OF THE HEAD WITHOUT CONTRAST CLINICAL HISTORY: Altered mental status. COMPARISON STUDY: No previous studies for comparison. TECHNIQUE: Helical axial images of the head were obtained without IV contrast. Automated exposure con trol was utilized for the study. A dose lowering technique was utilized adhering to the principles o f ALARA. FINDINGS: No acute intracranial hemorrhage, midline shift or mass effect is present. White matter hyp odensity suggests small vessel disease. The ventricular system is unremarkable. The basal cisterns ar e patent. No extra-axial collections are present. There are no findings to suggest acute dural sinus thrombosis or acute territorial infarct. No significant calvarial abnormalities are present. Visualiz ed portions of the sinuses and mastoid air cells are clear. IMPRESSION: No acute intracranial findings. ACT 112: Negative or not required by law. Electronically signed by: Maynor Gonzalez M.D. 05/18/2021 6:35 PM
--- NOTE | 2021-05-18 18:52 | CT Scan Report ---
CT OF THE ABDOMEN AND PELVIS WITHOUT CONTRAST CLINICAL HISTORY: Altered mental status. COMPARISON STUDY: CT of the abdomen and pelvis February 01, 2021. TECHNIQUE: Axial images of the abdomen and pelvis were obtained without IV contrast. Images were revi ewed in the axial, sagittal, and coronal planes. Automated exposure control was utilized for the tiff dy. A dose lowering technique was utilized adhering to the principles of ALARA. FINDINGS: No pneumatosis, free air or portal venous gas is present. Evaluation of the abdomen and pel vis is suboptimal on this unenhanced examination. There is no biliary ductal dilatation status post c holecystectomy. A 2.4 cm low-attenuation right adrenal nodule is unchanged. This is likely benign. Ri ght kidney is not visualized and likely surgically absent. Unenhanced images of the left adrenal glan d, left kidney and pancreas are unremarkable. There is no evidence for a bowel obstruction. A [place] b alloon within the bladder is noted. A septated 6.4 cm left adnexal cystic lesion is again noted. This is similar to prior exam. A large sacral decubitus ulcer is again noted. This was shown on prior CT and MRI. Mild body wall edema is noted within the pelvis and proximal thighs. No fluid collection is identified to suggest an abscess. As before, the inferior most aspect of the sacrum and several proxi mal coccygeal segments are not visualized. This is similar to prior CT and MRI. Prominent bilateral i nguinal lymph nodes are unchanged and are likely reactive. IMPRESSION: 1. Redemonstration of a sacral decubitus ulcer which was shown on prior CT and MRI. Absent inferior s acrum and several proximal coccygeal segments which is unchanged since prior CT. This likely reflects chronic sequela of osteomyelitis. No fluid collection to suggest abscess. 2. No bowel obstruction. 3. Redemonstration of a 6 cm septated left adnexal cystic lesion. This remains indeterminate. ACT 112: Negative or not required by law. Electronically signed by: Maynor Gonzalez M.D. 05/18/2021 6:50 PM
[2021-05-18] MEDS ORDERED: DEXTROSE 50% 50 ML SYRINGE IV PRN (21:47)
[2021-05-18] MEDS ORDERED: GLUCOSE 40% GEL 15 GM TUBE PO PRN (21:47)
[2021-05-18] MEDS ORDERED: CARBOHYDRATES FOR HYPOGLYCEMIA PO PRN (21:47)
[2021-05-18] MEDS ORDERED: METOPROLOL TARTRATE 50 MG TAB PO SCH (21:47)
[2021-05-18] MEDS ORDERED: ACETAMINOPHEN 325 MG TAB PO PRN (21:47)
[2021-05-18] MEDS ORDERED: GLUCOSE 10 TABS/TUBE PO PRN (21:47)
[2021-05-18] MEDS ORDERED: GLUCAGON FOR INJ 1 MG VIAL SQ PRN (21:47)
[2021-05-18] MEDS ORDERED: PHARMACY GLYCEMIC MGMT CONSULT PRN (21:47)
[2021-05-18] MEDS ORDERED: INSULIN GLARGINE SOLOSTAR 100 UNITS/ML 3 ML PEN SC SCH (22:00)
[2021-05-18] MEDS ORDERED: NSS + 20MEQ KCL 20 MEQ/1,000 ML BAG IV SCH (22:15)
[2021-05-18] MEDS: BACLOFEN 10 MG TAB PO SCH (22:39)
[2021-05-18] MEDS: SACCHAROMYCES BOULARDII 250 MG CAP PO SCH (22:39)
[2021-05-18] MEDS: BENZONATATE 100 MG CAPSULE PO SCH (22:39)
[2021-05-18] MEDS: GABAPENTIN 100 MG CAP PO SCH (22:39)
[2021-05-18] MEDS: ENOXAPARIN INJ 30 MG/0.3 ML SYR SQ SCH (22:40)
[2021-05-18] MEDS: INSULIN ASPART 100 UNITS/ML 3 ML PEN SC SCH (22:40)
[2021-05-18 22:43] LABS: Base Excess VBG -1.8 mEq/L; Oxygen Saturation VBG 84.9 %; pH VBG 7.37 (7.36-7.41)
[2021-05-19] MEDS: INSULIN ASPART 100 UNITS/ML 3 ML PEN SC SCH ×6 (02:08→18:21)
[2021-05-19] MEDS: MEROPENEM 500 MG in SYRINGE 0 ML IV SCH ×2 (04:11→16:52)
[2021-05-19] MEDS ORDERED: PHARMACY GLYCEMIC MGMT CONSULT PRN (07:11)
--- NOTE | 2021-05-19 08:21 | Hospitalist Progress Note ---
Date of Service May 19, 2021 Assessment & Plan (1) Sepsis: Plan: Sepsis with organ dysfunction-acute renal failure and toxic encephalopathy Was hypotensive but received 30 mils per KG crystalloid and now normotensive At present awake and communicative Source I suspect is right foot osteomyelitis and not UTI though cannot rule out - with indwelling [place] could well be colonization -Cultures pending Meropenem and vancomycin appropriate for now Switch to balanced fluids-Ringer's lactate Ortho consult (2) Osteomyelitis: Plan: Right foot calcaneal osteomyelitis with gasappears to be source of sepsis Ortho consult-sent message to Dr. Page Meropenem and Vanco for now is reasonable till picture clearer (3) UTI (urinary tract infection): Plan: Possiblecould be colonization; covered at present Change [place] (4) Acute on chronic renal failure: Plan: Acute component likely secondary to sepsis; underlying stage III CKDimprovedfollow (5) CAD (coronary artery disease): Plan: Non acute issuenoted resumption of Plavix; metoprolol held on account of low blood pressure (6) Diabetes type 2, controlled: Plan: Sugars fluctuatingpharmacy glycemic consult (7) HTN (hypertension): Plan: Blood pressure lowmetoprolol held (8) Hypothyroid: Plan: Uncontrolled hypothyroidismdoes not appear to be in myxedema coma; I did not give IV levothyroxine; I elected to obtain endocrinology input; no steroids (9) Quadriplegia: Plan: Quadriplegia Developed following elective cervical spine surgery Continue baclofen 10 mg p.o. at bedtime, 5 mg p.o. twice daily Patient with spastic contractions at baseline, limited use of left shoulder only (10) Anemia: Plan: - Macrocytic - B12, Folate pending - No signs of active bleeding (11) Sacral wound: Plan: Stage IV pressure ulcers, sacral wound Wound care consulted Patient with history of pressure ulcers on ankles bilaterally, and sacral wound Plan: on oxygenunclear if at baseline at present supportive care Adnexal lesion can be followed for now; tried but could not reach POA to updateleft message Admission and Anticipated Discharge Date Admission Date: May 18, 2021 Subjective Follow-up of presentation with altered mental status, feverat present awake and communicative; blood pressure improved, was hypotensive Awake and communicative but did not provide much meaningful information or had any specific complaints (wanted orange juice!) Physical Exam Physical Exam: Constitutional and general: No acute distress as such, looks biologic age Head and face: Mild puffiness, atraumatic Eyes: No scleral icterus, extraocular movements normal Neck: Supple, no JVD Musculoskeletal: No acute joint swelling, no bony abnormalities Skin/dermatologic/integument: No rash, no purpura Hematologic and lymphatic: pallor +, no petechia Gastrointestinal/abdomen: distended, soft, nonacute Cardiovascular: Heart rhythm regular, no rub, no murmur, no gallop Respiratory: Chest movements equal, no use of accessory muscles, no adventitious sounds Extremities: Right heel ulcer with black scab and some fluctuation Stage IV sacral ulcer Results & Data Results & Data ([facility]) Vital Signs (Past 12 Hours) Vital Signs Temp Pulse Pulse Resp BP Pulse Ox 05/19/21 08:01 36.8 C 69 16 125/77 96 05/19/21 07:00 63 05/19/21 04:00 36.6 C 66 18 100/60 98 05/19/21 02:45 54 L 05/18/21 22:51 36.9 C 16 108/70 94 05/18/21 22:35 94 Laboratory Results Laboratory Results - last 24 hr 05/18/21 05/18/21 05/18/21 16:05 16:05 16:05 WBC 18.54 H RBC 3.00 L Hgb 11.1 L Hct 33.6 L MCV 112.0 H MCH 37.0 H MCHC 33.0 RDW Std Deviation 62.3 H RDW Coeff of Alicia 15.5 H Plt Count 442 H MPV 10.1 Immature Gran % (Auto) 0.5 Neut % (Auto) 91.5 Lymph % (Auto) 3.1 [place] % (Auto) 3.7 Eos % (Auto) 1.0 Baso % (Auto) 0.2 Neut # (Auto) 16.97 H Lymph # (Auto) 0.57 L [place] # (Auto) 0.68 H Eos # (Auto) 0.19 Baso # (Auto) 0.04 Immature Gran # (Auto) 0.09 H Polychromasia 1+ Anisocytosis Macrocytosis Present Tear Drop Cells 1+ PT 10.4 INR 1.0 APTT 24.7 PTT Ratio 0.9 VBG pH VBG pCO2 VBG pO2 VBG HCO3 VBG O2 Saturation VBG Base Excess Barometric Pressure Sodium 136 Potassium 4.6 Chloride 104 Carbon Dioxide 25 Anion Gap 7.0 BUN 22 H Creatinine 1.54 H Est Cr Clr Drug Dosing Not Reportable Est GFR ( Amer) 38.1 Est GFR (Non-Af Amer) 32.9 BUN/Creatinine Ratio 14.4 Glucose 335 H* POC Glucose Lactate Calcium 8.8 Magnesium 2.2 Total Bilirubin 0.4 AST 17 ALT 18 Alkaline Phosphatase 89 Troponin I < 0.015 Total Protein 7.3 Albumin 2.7 L Globulin 4.6 H Albumin/Globulin Ratio 0.6 L Vitamin B12 Folate Beta-Hydroxybutyric Acd 2.50 TSH Free T4 Urine Color Urine Appearance Urine pH Ur Specific [place] Urine Protein Urine Glucose (UA) Urine Ketones Urine Blood Urine Nitrite Urine Bilirubin Urine Urobilinogen Ur Leukocyte Esterase Urine WBC (Auto) Urine RBC (Auto) U Hyaline Cast (Auto) U Epithel Cells (Auto) Urine Bacteria (Auto) COVID-19 Eval Order SARS-CoV-2 (PCR) 05/18/21 05/18/21 05/18/21 16:05 17:03 18:45 WBC RBC Hgb Hct MCV MCH MCHC RDW Std Deviation RDW Coeff of Alicia Plt Count MPV Immature Gran % (Auto) Neut % (Auto) Lymph % (Auto) [place] % (Auto) Eos % (Auto) Baso % (Auto) Neut # (Auto) Lymph # (Auto) [place] # (Auto) Eos # (Auto) Baso # (Auto) Immature Gran # (Auto) Polychromasia Anisocytosis Macrocytosis Tear Drop Cells PT INR APTT PTT Ratio VBG pH VBG pCO2 VBG pO2 VBG HCO3 VBG O2 Saturation VBG Base Excess Barometric Pressure Sodium Potassium Chloride Carbon Dioxide Anion Gap BUN Creatinine Est Cr Clr Drug Dosing Est GFR ( Amer) Est GFR (Non-Af Amer) BUN/Creatinine Ratio Glucose POC Glucose Lactate 2.4 H* 2.3 H* Calcium Magnesium Total Bilirubin AST ALT Alkaline Phosphatase Troponin I Total Protein Albumin Globulin Albumin/Globulin Ratio Vitamin B12 Folate Beta-Hydroxybutyric Acd TSH Free T4 Urine Color Dark Yellow Urine Appearance Cloudy A Urine pH 5.0 Ur Specific [place] 1.028 Urine Protein 2+ H Urine Glucose (UA) Negative Urine Ketones Trace H Urine Blood 2+ H Urine Nitrite Positive A Urine Bilirubin Negative Urine Urobilinogen Negative Ur Leukocyte Esterase 2+ H Urine WBC (Auto) >30 H Urine RBC (Auto) 0-4 U Hyaline Cast (Auto) 1-5 U Epithel Cells (Auto) 0-5 Urine Bacteria (Auto) 4+ H COVID-19 Eval Order SARS-CoV-2 (PCR) 05/18/21 05/18/21 05/18/21 19:23 22:28 22:36 WBC RBC Hgb Hct MCV MCH MCHC RDW Std Deviation RDW Coeff of Alicia Plt Count MPV Immature Gran % (Auto) Neut % (Auto) Lymph % (Auto) [place] % (Auto) Eos % (Auto) Baso % (Auto) Neut # (Auto) Lymph # (Auto) [place] # (Auto) Eos # (Auto) Baso # (Auto) Immature Gran # (Auto) Polychromasia Anisocytosis Macrocytosis Tear Drop Cells PT INR APTT PTT Ratio VBG pH 7.37 VBG pCO2 41 VBG pO2 51 VBG HCO3 23 VBG O2 Saturation 84.9 VBG Base Excess -1.8 Barometric Pressure 730.3 Sodium Potassium Chloride Carbon Dioxide Anion Gap BUN Creatinine Est Cr Clr Drug Dosing Est GFR ( Amer) Est GFR (Non-Af Amer) BUN/Creatinine Ratio Glucose POC Glucose 274 H 275 H Lactate Calcium Magnesium Total Bilirubin AST ALT Alkaline Phosphatase Troponin I Total Protein Albumin Globulin Albumin/Globulin Ratio Vitamin B12 Folate Beta-Hydroxybutyric Acd TSH Free T4 Urine Color Urine Appearance Urine pH Ur Specific [place] Urine Protein Urine Glucose (UA) Urine Ketones Urine Blood Urine Nitrite Urine Bilirubin Urine Urobilinogen Ur Leukocyte Esterase Urine WBC (Auto) Urine RBC (Auto) U Hyaline Cast (Auto) U Epithel Cells (Auto) Urine Bacteria (Auto) COVID-19 Eval Order SARS-CoV-2 (PCR) 05/18/21 05/18/21 05/19/21 Unknown Unknown 01:51 WBC RBC Hgb Hct MCV MCH MCHC RDW Std Deviation RDW Coeff of Alicia Plt Count MPV Immature Gran % (Auto) Neut % (Auto) Lymph % (Auto) [place] % (Auto) Eos % (Auto) Baso % (Auto) Neut # (Auto) Lymph # (Auto) [place] # (Auto) Eos # (Auto) Baso # (Auto) Immature Gran # (Auto) Polychromasia Anisocytosis Macrocytosis Tear Drop Cells PT INR APTT PTT Ratio VBG pH VBG pCO2 VBG pO2 VBG HCO3 VBG O2 Saturation VBG Base Excess Barometric Pressure Sodium Potassium Chloride Carbon Dioxide Anion Gap BUN Creatinine Est Cr Clr Drug Dosing Est GFR ( Amer) Est GFR (Non-Af Amer) BUN/Creatinine Ratio Glucose POC Glucose 245 H Lactate Calcium Magnesium Total Bilirubin AST ALT Alkaline Phosphatase Troponin I Total Protein Albumin Globulin Albumin/Globulin Ratio Vitamin B12 Folate Beta-Hydroxybutyric Acd TSH Free T4 Urine Color Urine Appearance Urine pH Ur Specific [place] Urine Protein Urine Glucose (UA) Urine Ketones Urine Blood Urine Nitrite Urine Bilirubin Urine Urobilinogen Ur Leukocyte Esterase Urine WBC (Auto) Urine RBC (Auto) U Hyaline Cast (Auto) U Epithel Cells (Auto) Urine Bacteria (Auto) COVID-19 Eval Order Covid19 at [facility] SARS-CoV-2 (PCR) NEGATIVE 05/19/21 05/19/21 05/19/21 04:06 06:09 07:41 WBC 11.84 H RBC 2.70 L Hgb 9.9 L Hct 30.5 L MCV 113.0 H MCH 36.7 H MCHC 32.5 RDW Std Deviation 64.0 H RDW Coeff of Alicia 15.6 H Plt Count 352 MPV 10.1 Immature Gran % (Auto) 0.7 Neut % (Auto) 84.6 Lymph % (Auto) 8.0 [place] % (Auto) 4.4 Eos % (Auto) 2.0 Baso % (Auto) 0.3 Neut # (Auto) 10.01 H Lymph # (Auto) 0.95 L [place] # (Auto) 0.52 Eos # (Auto) 0.24 Baso # (Auto) 0.04 Immature Gran # (Auto) 0.08 H Polychromasia 1+ Anisocytosis Present Macrocytosis Present Tear Drop Cells 1+ PT INR APTT PTT Ratio VBG pH VBG pCO2 VBG pO2 VBG HCO3 VBG O2 Saturation VBG Base Excess Barometric Pressure Sodium Potassium Chloride Carbon Dioxide Anion Gap BUN Creatinine Est Cr Clr Drug Dosing Est GFR ( Amer) Est GFR (Non-Af Amer) BUN/Creatinine Ratio Glucose POC Glucose 199 H 168 H Lactate Calcium Magnesium Total Bilirubin AST ALT Alkaline Phosphatase Troponin I Total Protein Albumin Globulin Albumin/Globulin Ratio Vitamin B12 Folate Beta-Hydroxybutyric Acd TSH Free T4 Urine Color Urine Appearance Urine pH Ur Specific [place] Urine Protein Urine Glucose (UA) Urine Ketones Urine Blood Urine Nitrite Urine Bilirubin Urine Urobilinogen Ur Leukocyte Esterase Urine WBC (Auto) Urine RBC (Auto) U Hyaline Cast (Auto) U Epithel Cells (Auto) Urine Bacteria (Auto) COVID-19 Eval Order SARS-CoV-2 (PCR) 05/19/21 05/19/21 05/19/21 07:41 07:41 07:46 WBC RBC Hgb Hct MCV MCH MCHC RDW Std Deviation RDW Coeff of Alicia Plt Count MPV Immature Gran % (Auto) Neut % (Auto) Lymph % (Auto) [place] % (Auto) Eos % (Auto) Baso % (Auto) Neut # (Auto) Lymph # (Auto) [place] # (Auto) Eos # (Auto) Baso # (Auto) Immature Gran # (Auto) Polychromasia Anisocytosis Macrocytosis Tear Drop Cells PT INR APTT PTT Ratio VBG pH VBG pCO2 VBG pO2 VBG HCO3 VBG O2 Saturation VBG Base Excess Barometric Pressure Sodium 140 Potassium 4.2 Chloride 110 H Carbon Dioxide 25 Anion Gap 6.0 BUN 18 Creatinine 1.08 Est Cr Clr Drug Dosing 36.1 Est GFR ( Amer) 58.6 Est GFR (Non-Af Amer) 50.5 BUN/Creatinine Ratio 16.6 Glucose 134 H POC Glucose 154 H Lactate Calcium 8.1 L Magnesium Total Bilirubin AST ALT Alkaline Phosphatase Troponin I Total Protein Albumin Globulin Albumin/Globulin Ratio Vitamin B12 423 Folate 13.00 Beta-Hydroxybutyric Acd TSH 157.000 H Free T4 0.24 L Urine Color Urine Appearance Urine pH Ur Specific [place] Urine Protein Urine Glucose (UA) Urine Ketones Urine Blood Urine Nitrite Urine Bilirubin Urine Urobilinogen Ur Leukocyte Esterase Urine WBC (Auto) Urine RBC (Auto) U Hyaline Cast (Auto) U Epithel Cells (Auto) Urine Bacteria (Auto) COVID-19 Eval Order SARS-CoV-2 (PCR) Diagnostic Findings Chest X-Ray 05/18/21 15:35 XR chest 1V portable CLINICAL HISTORY: SEPSIS COMPARISON STUDY: Chest radiograph January 30, 2021. FINDINGS: Lung volumes are normal. Lungs are clear. There is no pneumothorax or pleural effusion. There is mild enlargement of the cardiac silhouette. Mediastinal contours are normal. There is no evidence for pulmonary edema. Incidental note is made of postoperative findings within the cervical spine. IMPRESSION: Pulmonary vascular congestion without overt pulmonary edema. ACT 112: Negative or not required by law. Electronically signed by: Maynor Gonzalez M.D. 05/18/2021 4:03 PM Abdomen/Pelvis CT 05/18/21 16:47 CT OF THE ABDOMEN AND PELVIS WITHOUT CONTRAST CLINICAL HISTORY: Altered mental status. COMPARISON STUDY: CT of the abdomen and pelvis February 01, 2021. TECHNIQUE: Axial images of the abdomen and pelvis were obtained without IV contrast. Images were reviewed in the axial, sagittal, and coronal planes. Automated exposure control was utilized for the study. A dose lowering technique was utilized adhering to the principles of ALARA. FINDINGS: No pneumatosis, free air or portal venous gas is present. Evaluation of the abdomen and pelvis is suboptimal on this unenhanced examination. There is no biliary ductal dilatation status post cholecystectomy. A 2.4 cm low- attenuation right adrenal nodule is unchanged. This is likely benign. Right kidney is not visualized and likely surgically absent. Unenhanced images of the left adrenal gland, left kidney and pancreas are unremarkable. There is no evidence for a bowel obstruction. A [place] balloon within the bladder is noted. A septated 6.4 cm left adnexal cystic lesion is again noted. This is similar to prior exam. A large sacral decubitus ulcer is again noted. This was shown on prior CT and MRI. Mild body wall edema is noted within the pelvis and proximal thighs. No fluid collection is identified to suggest an abscess. As before, the inferior most aspect of the sacrum and several proximal coccygeal segments are not visualized. This is similar to prior CT and MRI. Prominent bilateral inguinal lymph nodes are unchanged and are likely reactive. IMPRESSION: 1. Redemonstration of a sacral decubitus ulcer which was shown on prior CT and MRI. Absent inferior sacrum and several proximal coccygeal segments which is unchanged since prior CT. This likely reflects chronic sequela of osteomyelitis. No fluid collection to suggest abscess. 2. No bowel obstruction. 3. Redemonstration of a 6 cm septated left adnexal cystic lesion. This remains indeterminate. ACT 112: Negative or not required by law. Electronically signed by: Maynor Gonzalez M.D. 05/18/2021 6:[address] 05/18/21 16:47 CT OF THE HEAD WITHOUT CONTRAST CLINICAL HISTORY: Altered mental status. COMPARISON STUDY: No previous studies for comparison. TECHNIQUE: Helical axial images of the head were obtained without IV contrast. Automated exposure control was utilized for the study. A dose lowering technique was utilized adhering to the principles of ALARA. FINDINGS: No acute intracranial hemorrhage, midline shift or mass effect is present. White matter hypodensity suggests small vessel disease. The ventricular system is unremarkable. The basal cisterns are patent. No extra-axial collections are present. There are no findings to suggest acute dural sinus thrombosis or acute territorial infarct. No significant calvarial abnormalities are present. Visualized portions of the sinuses and mastoid air cells are clear. IMPRESSION: No acute intracranial findings. ACT 112: Negative or not required by law. Electronically signed by: Maynor Gonzalez M.D. 05/18/2021 6:[address] 05/19/21 08:08 CT SCAN OF THE RIGHT FOOT WITHOUT IV CONTRAST CLINICAL HISTORY: Heel ulceration. Sepsis. COMPARISON STUDY: Radiographs of the right foot dated 01/30/2021. TECHNIQUE: CT scan of the right foot is performed from the distal tibia and fibula to the base of the foot. Images are reviewed in the axial, sagittal, and coronal planes. IV contrast was not administered for this examination. The examination is degraded by suboptimal positioning. A dose lowering technique was utilized adhering to the principles of ALARA. CT DOSE: 223.53 mGy.cm FINDINGS: The skeletal structures are heterogeneously osteopenic. No acute fracture is identified. There is postoperative change from osteotomy of the dorsal calcaneus. There is erosive change and cortical destruction seen along the dorsal aspect of the posterior calcaneus, best seen on axial image #82. This is highly concerning for osteomyelitis. Sclerotic change with periostitis and erosion is also seen along the base of the calcaneus. This is also concerning for osteomyelitis and may be acute on chronic. There is a plantar calcaneal enthesophyte. Degenerative change is seen throughout the midfoot. The ankle mortise is intact. A high arch is noted. There is diffuse soft tissue edema. A large ulceration/wound is suggested along the dorsal/plantar aspect of the heel with surrounding inflammation, fluid, and foci of subcutaneous gas. There is no clear evidence of organized/drainable fluid collection on this unenhanced examin ation. There is apparent discontinuity of the Achilles tendon above the calcaneus. Integrity of the Achilles tendon cannot be confirmed. There is generalized atrophy of the regional musculature. IMPRESSION: 1. Heterogeneous osteopenia with no acute fracture identified. 2. Again seen is postoperative change from calcaneal resection. 3. There is evidence of multifocal calcaneal osteomyelitis as above. 4. A large wound/ulceration overlies the dorsal and plantar aspect of the heel with associated subcutaneous gas. No organized/drainable fluid collection is seen on this unenhanced examination. 5. The Achilles tendon appears discontinuous at its calcaneal attachment. Integrity of The tendon cannot be verified. Clinical correlation will be required. ACT 112: Negative or not required by law. Dictated: 05/19/2021 9:16 AM Transcribed: 05/19/2021 9:35 AM Petra [id number] [facility] Electronically signed by: Flako Mcdonough M.D. 05/19/2021 10:09 AM PG Care Time/CCT Total # of Minutes Spent Total Time Spent with Patient: Total time spent is greater than 50% in coordination of care (as documented) at patient's floor/unit and/or counseling patient: Coding Level of Care Code 68922 Subseq Hosp Care Lvl 3 Diagnoses UTI (urinary tract infection) N39.0 Sepsis A41.9 CAD (coronary artery disease) I25.10 Associated angina: without angina Coronary Disease-Associated Artery/Lesion type: [place] artery [place] vs. transplanted heart: [place] heart Diabetes type 2, controlled E11.9 Diabetes mellitus complication status: without complication Diabetes mellitus intermediate insulin use: unspecified wash barrel leader insulin use status HTN (hypertension) I10 Hypertension type: unspecified Hypothyroid E03.9 Hypothyroidism type: unspecified Quadriplegia G82.50 Anemia D64.9 Anemia type: unspecified type Sacral wound S31.000A Acute on chronic renal failure N17.9; N18.9 Osteomyelitis M86.9 (1) CAD (coronary artery disease) Associated angina: without angina Coronary Disease-Associated Artery/Lesion type: [place] artery [place] vs. transplanted heart: [place] heart Qualified Code(s): I25.10 - Atherosclerotic heart disease of [place] coronary artery without angina pectoris (2) Anemia Anemia type: unspecified type Qualified Code(s): D64.9 - Anemia, unspecified (3) Hypothyroid Hypothyroidism type: unspecified Qualified Code(s): E03.9 - Hypothyroidism, unspecified (4) Diabetes type 2, controlled Diabetes mellitus complication status: without complication Diabetes mellitus intermediate insulin use: unspecified wash barrel leader insulin use status Qualified Code(s): E11.9 - Type 2 diabetes mellitus without complications (5) HTN (hypertension) Hypertension type: unspecified Qualified Code(s): I10 - Essential (primary) hypertension
[2021-05-19 08:26] LABS: Basophils # (auto) 0.04 K/uL (0-0.2); Basophils % (auto) 0.3 %; Eosinophils # (auto) 0.24 K/uL (0-0.5); Hematocrit (blood only) 30.5 % (37-47); Hemoglobin 9.9 g/dL (12.0-16.0); Immature Granulocytes # (auto) 0.08 K/uL (0.00-0.02); Immature Granulocytes % (auto) 0.7 %; Lymphocytes # (auto) 0.95 K/uL (1.2-3.4); Mean Corpuscular Hemoglobin 36.7 pg (25-34); Mean Corpuscular Hgb Conc 32.5 g/dL (32-36); Mean Platelet Volume 10.1 fL (7.4-10.4); Monocytes # (auto) 0.52 K/uL (0.11-0.59); Monocytes % (auto) 4.4 %; Neutrophils # (auto) 10.01 K/uL (1.4-6.5); Neutrophils % (auto) 84.6 %; Platelet Count 352 K/uL (130-400); RDW Coefficient of Variation 15.6 % (11.5-14.5); White Blood Count 11.84 K/uL (4.8-10.8)
[2021-05-19] MEDS: BACLOFEN 10 MG TAB PO SCH ×3 (08:30→20:19)
[2021-05-19] MEDS: LACTATED RINGER'S 1,000 ML IV SCH (08:30)
[2021-05-19] MEDS: GABAPENTIN 100 MG CAP PO SCH ×3 (08:30→20:19)
[2021-05-19] MEDS: SACCHAROMYCES BOULARDII 250 MG CAP PO SCH ×2 (08:31→20:19)
[2021-05-19] MEDS: FLUTICASONE PROPIONATE NA SPR 16 GM BTL NAE SCH (08:31)
[2021-05-19] MEDS: BENZONATATE 100 MG CAPSULE PO SCH ×3 (08:31→20:19)
[2021-05-19] MEDS: CLOPIDOGREL BISULFATE 75 MG TAB PO SCH (08:31)
[2021-05-19 08:52] LABS: Anisocytosis Present; Macrocytosis Present; Polychromasia 1+; Tear Drop Cells 1+
[2021-05-19 09:01] LABS: BUN Creatinine Ratio 16.6 (10-20); Calcium 8.1 mg/dl (8.5-10.1); Creatinine Clr Calc Pharmacy 36.1 ml/min; Est GFR (African American) 58.6 ml/min; Est GFR (Non-African American) 50.5 ml/min; Potassium 4.2 mmol/L (3.5-5.1)
[2021-05-19 09:43] LABS: T4 Free Thyroxine 0.24 ng/dl (0.8-1.6)
--- NOTE | 2021-05-19 10:03 | Pharmacy Report ---
Pharmacy Glycemic Short Note 2 - Date of Service May 19, 2021 - Glycemic Short BSG Results (Last 24 hours): 05/18/21 05/18/21 05/18/21 16:05 19:23 22:36 Glucose 335 H* POC Glucose 274 H 275 H 05/19/21 05/19/21 05/19/21 01:51 04:06 06:09 Glucose POC Glucose 245 H 199 H 168 H 05/19/21 05/19/21 07:41 07:46 Glucose 134 H POC Glucose 154 H OUTPATIENT ANTIDIABETIC REGIMEN: * Lantus 20 units SQ PM * NovoLog with meals * A1c = 6.9% on 04/11/21 ASSESSMENT: * 75yo T2DM female with excellent outpatient control per recent A1c * Pt is maintained on SQ basal bolus insulin regimen as an outpatient - will continue outpatient basal insulin and use weight based CF/CR for NovoLog since CHO intake inhouse can be different/less than outpatient. * Titrate based on BSG trends to maintain BSGs 110-140 mg/dl range. PLAN FOR INPATIENT GLYCEMIC CONTROL: * Basal insulin * Lantus 20 units SQ HS * Bolus insulin * NovoLog per scale ACHS or Q6hrs while NPO * Goal Range: Low 100 mg/dL - High 140 mg/dL * Correction Factor: 35 mg/dL/unit * Nutritional / Prandial insulin per carb ratio of 1 unit per 12 grams CHO consumed PLAN FOR DISCHARGE: * A1c is in goal range - no changes needed to outpatient insulin regimen at [place].
--- NOTE | 2021-05-19 10:10 | CT Scan Report ---
CT SCAN OF THE RIGHT FOOT WITHOUT IV CONTRAST CLINICAL HISTORY: Heel ulceration. Sepsis. COMPARISON STUDY: Radiographs of the right foot dated 01/30/2021. TECHNIQUE: CT scan of the right foot is performed from the distal tibia and fibula to the base of the foot. Images are reviewed in the axial, sagittal, and coronal planes. IV contrast was not administer ed for this examination. The examination is degraded by suboptimal positioning. A dose lowering techn ique was utilized adhering to the principles of ALARA. CT DOSE: 223.53 mGy.cm FINDINGS: The skeletal structures are heterogeneously osteopenic. No acute fracture is identified. Th ere is postoperative change from osteotomy of the dorsal calcaneus. There is erosive change and corti roland destruction seen along the dorsal aspect of the posterior calcaneus, best seen on axial image #82 . This is highly concerning for osteomyelitis. Sclerotic change with periostitis and erosion is also seen along the base of the calcaneus. This is also concerning for osteomyelitis and may be acute on c hronic. There is a plantar calcaneal enthesophyte. Degenerative change is seen throughout the midfoot . The ankle mortise is intact. A high arch is noted. There is diffuse soft tissue edema. A large ulce ration/wound is suggested along the dorsal/plantar aspect of the heel with surrounding inflammation, fluid, and foci of subcutaneous gas. There is no clear evidence of organized/drainable fluid collecti on on this unenhanced examination. There is apparent discontinuity of the Achilles tendon above the c alcaneus. Integrity of the Achilles tendon cannot be confirmed. There is generalized atrophy of the r egional musculature. IMPRESSION: 1. Heterogeneous osteopenia with no acute fracture identified. 2. Again seen is postoperative change from calcaneal resection. 3. There is evidence of multifocal calcaneal osteomyelitis as above. 4. A large wound/ulceration overlies the dorsal and plantar aspect of the heel with associated subcut aneous gas. No organized/drainable fluid collection is seen on this unenhanced examination. 5. The Achilles tendon appears discontinuous at its calcaneal attachment. Integrity of The tendon can not be verified. Clinical correlation will be required. ACT 112: Negative or not required by law. Dictated: 05/19/2021 9:16 AM Transcribed: 05/19/2021 9:35 AM Petra [id number] [facility] Electronically signed by: Flako Mcdonough M.D. 05/19/2021 10:09 AM
--- NOTE | 2021-05-19 11:30 | Pharmacy Report ---
Pharmacy Abx Dose Short Note - Date of Service May 19, 2021 - Assessment & Plan Assessment 75 year old F receiving Vancomycin for treatment of sepsis secondary to UTI * 75 yo female with quadriplegia from [facility] presents with fever(Tmax 39.4) and altered mental status. * Scr elevated on admission but back to baseline(1.54--->1.08). * WBCs elevated. * UA pending. * Pt has chronic indwelling parada due to quadriplegia. * Hx of past UTIs including ESBL/MRSA. Plan Vancomycin * Estimated PK values: Dewayne 0.034 hr-1; T1/2 20.4 hrs. * Patient received loading dose of 1gm Vancomycin(18 mg/kg). * Since initial indication was empiric will give additional 750mg today approx. 24 hrs after loading dose for 48 hours of therapy and await urine culture for further dosing. Meropenem * Recommended dosing for sepsis indication 500mg q6h. * Due to CrCl of 36.1 mL/min, will change dosing to q12h. Pharmacy will continue to follow and will adjust dose/frequency as necessary. Thank you.
[2021-05-19] MEDS ORDERED: Nursing to Pharmacy Communication SCH ×2 (16:30→20:00)
[2021-05-19] MEDS ORDERED: VANCOMYCIN HCL 750 MG in SODIUM CHLORIDE 0.9% 250 ML IV SCH (17:00)
[2021-05-19] MEDS: ENOXAPARIN INJ 30 MG/0.3 ML SYR SQ SCH (20:13)
[2021-05-19] MEDS ORDERED: INSULIN GLARGINE SOLOSTAR 100 UNITS/ML 3 ML PEN SC ONE (21:00)
[2021-05-20] MEDS: INSULIN ASPART 100 UNITS/ML 3 ML PEN SC SCH ×5 (00:17→21:32)
[2021-05-20] MEDS: LACTATED RINGER'S 1,000 ML IV SCH (04:21)
[2021-05-20] MEDS: LEVOTHYROXINE SODIUM 50 MCG TABLET PO SCH (04:22)
[2021-05-20] MEDS: MEROPENEM 500 MG in SYRINGE 0 ML IV SCH ×3 (04:22→21:35)
[2021-05-20] MEDS ORDERED: LEVOTHYROXINE SODIUM 50 MCG TABLET PO SCH (06:30)
[2021-05-20 08:11] LABS: Basophils # (auto) 0.04 K/uL (0-0.2); Basophils % (auto) 0.4 %; Eosinophils # (auto) 0.33 K/uL (0-0.5); Eosinophils % (auto) 3.4 %; Hemoglobin 9.6 g/dL (12.0-16.0); Immature Granulocytes # (auto) 0.07 K/uL (0.00-0.02); Immature Granulocytes % (auto) 0.7 %; Lymphocytes # (auto) 1.26 K/uL (1.2-3.4); Mean Corpuscular Volume 112.4 fL (80-100); Mean Platelet Volume 9.8 fL (7.4-10.4); Monocytes # (auto) 0.48 K/uL (0.11-0.59); Monocytes % (auto) 4.9 %; Neutrophils # (auto) 7.54 K/uL (1.4-6.5); Neutrophils % (auto) 77.6 %; Platelet Count 370 K/uL (130-400); RDW Coefficient of Variation 15.4 % (11.5-14.5); RDW Standard Deviation 62.2 fL (36.4-46.3); Red Blood Count 2.67 M/uL (4.2-5.4); White Blood Count 9.72 K/uL (4.8-10.8)
[2021-05-20 08:36] LABS: Macrocytosis Present
[2021-05-20 08:46] LABS: Albumin Level 2.1 gm/dl (3.4-5.0); BUN Creatinine Ratio 14.5 (10-20); Creatinine Clr Calc Pharmacy 44.1 ml/min; Est GFR (African American) 59.9 ml/min; Est GFR (Non-African American) 51.7 ml/min; Magnesium 2.2 mg/dl (1.8-2.4); Potassium 3.9 mmol/L (3.5-5.1)
[2021-05-20 08:49] LABS: Albumin Globulin Ratio 0.5 (0.9-2); Bilirubin,Total 0.5 mg/dl (0.2-1); Total Protein 6.1 gm/dl (6.4-8.2)
[2021-05-20] MEDS: SACCHAROMYCES BOULARDII 250 MG CAP PO SCH ×3 (09:15→21:28)
[2021-05-20] MEDS: GABAPENTIN 100 MG CAP PO SCH ×4 (09:15→21:28)
[2021-05-20] MEDS: BACLOFEN 10 MG TAB PO SCH ×4 (09:16→21:27)
[2021-05-20] MEDS: FLUTICASONE PROPIONATE NA SPR 16 GM BTL NAE SCH (09:17)
[2021-05-20] MEDS: BENZONATATE 100 MG CAPSULE PO SCH ×4 (09:17→21:27)
[2021-05-20] MEDS: CLOPIDOGREL BISULFATE 75 MG TAB PO SCH ×2 (09:17→09:20)
--- NOTE | 2021-05-20 12:17 | Orthopedic Consultation ---
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 Maher. He will see the patient later this afternoon. With her CT scan results, it is possible she would need an irrigation and debridement of this area with question of further resection of her calcaneus. Continue current IV antibiotics at this time. Plan for daily dressing changes and use of Aquacel Ag on the macerated areas of the ulcer. Betadine paint on the darkened eschar area. Will await Dr. Maher's input for possible need for further irrigation and debridement. MRI of Right foot ordered; Duplex RLE Arterial study ordered. History of Present Illness Reason for Consultation: Right heel ulceration Attending Physician: Smitha Anton MD History of Present Illness Patient is a 75-year-old female with a history of quadriplegia, hypertension, hypothyroid, type 2 diabetes, CAD, and past UTIs which included ESBL and MRSA who presented with fever and altered mental status from [place] [facility] as a code sepsis and who is admitted for urosepsis. Patient's history of quadriplegia related to an elective cervical cervical procedure that resulted with incomplete quadriplegia with no resolution from a second surgery. Per the chart and the patient, she had not been feeling well for several days prior to her admission. She was thusly admitted for urosepsis and mental status changes. Over the course of her admission it was noted she had right heel eschar. CT scan was ordered of the right foot and found multifocal calcaneal osteomyelitis with the noted large wound ulceration overlying the dorsal and plantar aspect of the heel with associated subcutaneous gas. No abscesses were appreciated. Patient is obviously had a partial resection of her calcaneus at some point. She states that she does not remember where she had this done. With the findings of the CT scan, we have been asked to see her for her right heel ulcer/calcaneal osteomyelitis. Allergies Allergy/AdvReac Type Severity Reaction Status Date / Time acesulfame Allergy Unknown Unknown Verified 05/18/21 16:31 aspartame Allergy Unknown Unknown Verified 05/18/21 16:31 [From Nutrasweet Aspartame] saccharin Allergy Unknown Unknown Verified 05/18/21 16:31 sucralose Allergy Unknown Unknown Verified 05/18/21 16:31 mold Allergy Unknown Verified 05/18/21 16:31 pollen extracts Allergy Unknown Verified 05/18/21 16:31 Home Medications Medication Instructions Recorded Confirmed Type acetaminophen 325 mg tablet 650 mg PO Q6 PRN 01/30/21 05/18/21 History (Tylenol) albuterol sulfate 90 mcg/actuation 2 puff INHALATION Q4 PRN 01/30/21 05/18/21 History aerosol inhaler (Proventil HFA) ascorbic acid (vitamin C) 500 mg 500 mg PO BID 01/30/21 05/18/21 History tablet (Vitamin C) baclofen 10 mg tablet 10 mg PO HS 01/30/21 05/18/21 History baclofen 5 mg tablet 5 mg PO BID 01/30/21 05/18/21 History bisacodyl 10 mg rectal suppository 10 mg [place] UD PRN 01/30/21 05/18/21 History (Dulcolax (bisacodyl)) ezetimibe 10 mg tablet (Zetia) 10 mg PO DAILY 01/30/21 05/18/21 History gabapentin 100 mg capsule 100 mg PO TID 01/30/21 05/18/21 History insulin aspart U-100 100 unit/mL 0 sliding scale dose SUBCUT UD 01/30/21 05/18/21 History subcutaneous solution (Novolog U-100 Insulin aspart) insulin glargine 100 unit/mL 20 unit SUBCUT QPM 01/30/21 05/18/21 History subcutaneous solution (Lantus U-100 Insulin) magnesium oxide 400 mg PO DAILY 01/30/21 05/18/21 History metoprolol tartrate 50 mg tablet 50 mg PO Q12 01/30/21 05/18/21 History multivitamin 1 tab PO DAILY 01/30/21 05/18/21 History ondansetron HCl 4 mg tablet 4 mg PO Q6H PRN 01/30/21 05/18/21 History (Zofran) peg 400-propylene glycol 0.4 %-0.3 1 drp OPHTHALMIC (EYE) QPM 01/30/21 05/18/21 History % eye gel drops (Systane Gel) polyethylene glycol 3350 17 gram 17 g PO DAILY 01/30/21 05/18/21 History oral powder packet (Miralax) protein 1 ea PO TID #0 01/30/21 05/18/21 History fluconazole 100 mg tablet 200 mg PO DAILY 30 Days #60 tab 02/06/21 05/18/21 Rx Saccharomyces boulardii 250 mg 250 mg PO BID 04/17/21 05/18/21 History capsule (Florastor) collagenase clostridium histo. 250 1 applic TOPICAL DAILY 14 Days #90 04/17/21 05/18/21 Rx unit/gram topical ointment (Santyl) g bismuth subsalicylate 262 mg/15 mL 524 mg PO QID 04/26/21 05/18/21 History oral suspension (Pepto-Bismol) sodium phosphates 19 gram-7 118 ml [place] DAILY PRN 04/26/21 05/18/21 History gram/197 mL enema (Fleet Enema Extra) benzonatate 200 mg capsule 200 mg PO TID 05/13/21 05/18/21 History fluticasone propionate 50 2 spray INTRANASAL DAILY 05/18/21 05/18/21 History mcg/actuation nasal spray,suspension Patient History Medical History Adnexal tumor Anemia CAD (coronary artery disease) Maren infection Cardiomyopathy Chronic incomplete quadriplegia Depression Diabetes type 2, controlled Dysphagia History of DVT (deep vein thrombosis) 02/26/20 LLE History of mechanical ventilation History of MO (myocardial infarction) 2004 History of renal cell cancer HTN (hypertension) Hyperlipemia Hypothyroid Insomnia Ischemic cardiomyopathy Major depressive disorder Mass of left thigh 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) MRSA (methicillin resistant staph aureus) culture positive Myelodysplasia (myelodysplastic syndrome) Neurogenic bowel Pneumonia Respiratory failure, post-operative Seasonal asthma Thrombocytopenia UTI (urinary tract infection) Surgical History H/O excision of lamina of cervical vertebra for decompression of spinal cord H/O percutaneous transluminal coronary angioplasty History of esophagogastroduodenoscopy (EGD) History of right nephrectomy History of thyroidectomy Hx of colonoscopy S/P cardiac catheterization S/P cervical spinal fusion S/P cholecystectomy Social History Smoking Status: Never smoker Hx Alcohol Use: No Hx Substance Use: No Preferred Language: Vietnamese Communication Ability: Effective Component Inspector Required: No Beliefs That Will Affect Care: None marital status: / Current Living Situation: Prison Current Living Situation Comment: [facility] current occupational status: disabled Feels Safe at Home: Yes Safety Concerns: Feels Safe At This Time caffeine: Yes Physical Activity Frequency: Does not Exercise Assistive Devices: Oxygen - Continuous Physical Exam Physical Exam: Patient currently seen with wound care team. They were in earlier apparently checking on a large sacral ulcer which she stated had a fair amount of purulent discharge. On examination of her right heel, she has a large black eschar noted encompassing a good portion of the heel on the plantar surface and also posterior aspect. There is no gross purulence noted at this time and there is no foul odor. She has an area along the posterior edges that are macerated. There is also an area of thickened yellow callus. Both the darkened eschar and the callus are firm to the touch. I cannot express any purulence when palpating these areas. There is no overt area of erythema surrounding this ulcer. 2+ pitting edema of the dorsum of foot. Dorsalis pedis pulse faint. Results & Data ([facility]) Vital Signs (Past 12 Hours) Vital Signs Temp Pulse Pulse Resp BP Pulse Ox 05/20/21 10:58 37 C 76 16 159/80 H 92 05/20/21 08:00 72 05/20/21 07:20 37.1 C 74 16 133/73 93 05/20/21 05:41 94 H 05/20/21 03:53 37.1 C 71 18 126/69 93 Diagnostic Findings Patient: RODNEY CHRISTOPHER Date: 05/18/21MR#: [id number]: 250 PERSRAINA RDAcct ID:[id number]: [facility]AREB[facility]: 1945[facility] Zip: [place], [place] [address]Itk: 75Location: 2NSex: FRoom/Bed: [id number] Phy: Millicent Tsai MDDiagnosis: UROSEPSISPri Phy: [place] CareService Date: 05/19/21Fam Phy:Interpreting Phy: Flako Mcdonough MDAdmit Phy: David Lofton MD Ordering Phy: Millicent Tsai MD cc: ~ CT SCAN OF THE RIGHT FOOT WITHOUT IV CONTRAST CLINICAL HISTORY: Heel ulceration. Sepsis. COMPARISON STUDY: Radiographs of the right foot dated 01/30/2021. TECHNIQUE: CT scan of the right foot is performed from the distal tibia and fibula to the base of the foot. Images are reviewed in the axial, sagittal, and coronal planes. IV contrast was not administered for this examination. The examination is degraded by suboptimal positioning. A dose lowering technique was utilized adhering to the principles of ALARA. CT DOSE: 223.53 mGy.cm FINDINGS: The skeletal structures are heterogeneously osteopenic. No acute fracture is identified. There is postoperative change from osteotomy of the dorsal calcaneus. There is erosive change and cortical destruction seen along the dorsal aspect of the posterior calcaneus, best seen on axial image #82. This is highly concerning for osteomyelitis. Sclerotic change with periostitis and erosion is also seen along the base of the calcaneus. This is also concerning for osteomyelitis and may be acute on chronic. There is a plantar calcaneal enthesophyte. Degenerative change is seen throughout the midfoot. The ankle mortise is intact. A high arch is noted. There is diffuse soft tissue edema. A large ulceration/wound is suggested along the dorsal/plantar aspect of the heel with surrounding inflammation, fluid, and foci of subcutaneous gas. There is no clear evidence of organized/drainable fluid collection on this unenhanced examination. There is apparent discontinuity of the Achilles tendon above the calcaneus. Integrity of the Achilles tendon cannot be confirmed. There is generalized atrophy of the regional musculature. IMPRESSION: 1. Heterogeneous osteopenia with no acute fracture identified. 2. Again seen is postoperative change from calcaneal resection. 3. There is evidence of multifocal calcaneal osteomyelitis as above. 4. A large wound/ulceration overlies the dorsal and plantar aspect of the heel with associated subcutaneous gas. No organized/drainable fluid collection is seen on this unenhanced examination. 5. The Achilles tendon appears discontinuous at its calcaneal attachment. Integrity of The tendon cannot be verified. Clinical correlation will be required.
[2021-05-20] MEDS ORDERED: VANCOMYCIN HCL 1,250 MG in SODIUM CHLORIDE 0.9% 250 ML IV SCH (13:00)
[2021-05-20] MEDS: POT PHOSPHATE MONOBASIC W/ SOD TAB PO SCH ×3 (13:45→21:28)
[2021-05-20] MEDS ORDERED: [UNRECOGNIZED DRUG - OTHER] PR PRN (14:36)
[2021-05-20] MEDS ORDERED: bisacodyL 10 MG SUPP PR PRN (14:36)
[2021-05-20] MEDS: COLLAGENASE OINT 30 GM TUBE TOP SCH (15:04)
--- NOTE | 2021-05-20 15:48 | Surgery Consultation ---
Date of Consultation May 20, 2021 Assessment & Plan (1) Sacral wound: 75 year-old female who is quadriplegic secondary to elective spinal surgery with chronic sacral decubitus ulcer with osteomyelitis. Our services consulted for possible surgical debridement. No leukocytosis. CT scan showing no evidence of drainable abscess/fluid collection. Exam with fibrinous tissue at edges of wound but healthy granulation tissue underneath. No areas of necrosis. In reviewing outpatient wound clinic notes and images, wound actually looks improved compared to 05/13/21 outpatient wound image in which she had surgical debridement at that time. Plan: would recommend chemical debridement with Santyl at this time Should continue antibiotics as already established given her chronic osteomyelitis of sacral wound continue current medical management Dr. Carolina has seen and examined pt, recommended plan as above. History of Present Illness Reason for Consultation: Sacral decubitus ulcer Requesting Physician: Smitha Anton MD Attending Physician: Smitha Anton MD History of Present Illness Patient is a 75-year-old female with a history of quadriplegia, hypertension, hypothyroid, type 2 diabetes, CAD, and past UTIs which included ESBL and MRSA who presented with fever and altered mental status from [facility] as a code sepsis and who is admitted for urosepsis. Patient's history of quadriplegia related to an elective spinal procedure. She has history of sacral decubitus ulcer and our services have been consulted for possible surgical debridement. Dr. Carolina evaluated patient in January of this year in which no surgical debridement was recommended at that time. She had a CT scan of abdomen and pelvis however no MRI of the pelvis. Allergies Allergy/AdvReac Type Severity Reaction Status Date / Time acesulfame Allergy Unknown Unknown Verified 05/18/21 16:31 aspartame Allergy Unknown Unknown Verified 05/18/21 16:31 [From Nutrasweet Aspartame] saccharin Allergy Unknown Unknown Verified 05/18/21 16:31 sucralose Allergy Unknown Unknown Verified 05/18/21 16:31 mold Allergy Unknown Verified 05/18/21 16:31 pollen extracts Allergy Unknown Verified 05/18/21 16:31 Home Medications Medication Instructions Recorded Confirmed Type acetaminophen 325 mg tablet 650 mg PO Q6 PRN 01/30/21 05/18/21 History (Tylenol) albuterol sulfate 90 mcg/actuation 2 puff INHALATION Q4 PRN 01/30/21 05/18/21 History aerosol inhaler (Proventil HFA) ascorbic acid (vitamin C) 500 mg 500 mg PO BID 01/30/21 05/18/21 History tablet (Vitamin C) baclofen 10 mg tablet 10 mg PO HS 01/30/21 05/18/21 History baclofen 5 mg tablet 5 mg PO BID 01/30/21 05/18/21 History bisacodyl 10 mg rectal suppository 10 mg TN UD PRN 01/30/21 05/18/21 History (Dulcolax (bisacodyl)) ezetimibe 10 mg tablet (Zetia) 10 mg PO DAILY 01/30/21 05/18/21 History gabapentin 100 mg capsule 100 mg PO TID 01/30/21 05/18/21 History insulin aspart U-100 100 unit/mL 0 sliding scale dose SUBCUT UD 01/30/21 05/18/21 History subcutaneous solution (Novolog U-100 Insulin aspart) insulin glargine 100 unit/mL 20 unit SUBCUT QPM 01/30/21 05/18/21 History subcutaneous solution (Lantus U-100 Insulin) magnesium oxide 400 mg PO DAILY 01/30/21 05/18/21 History metoprolol tartrate 50 mg tablet 50 mg PO Q12 01/30/21 05/18/21 History multivitamin 1 tab PO DAILY 01/30/21 05/18/21 History ondansetron HCl 4 mg tablet 4 mg PO Q6H PRN 01/30/21 05/18/21 History (Zofran) peg 400-propylene glycol 0.4 %-0.3 1 drp OPHTHALMIC (EYE) QPM 01/30/21 05/18/21 History % eye gel drops (Systane Gel) polyethylene glycol 3350 17 gram 17 g PO DAILY 01/30/21 05/18/21 History oral powder packet (Miralax) protein 1 ea PO TID #0 01/30/21 05/18/21 History fluconazole 100 mg tablet 200 mg PO DAILY 30 Days #60 tab 02/06/21 05/18/21 Rx Saccharomyces boulardii 250 mg 250 mg PO BID 04/17/21 05/18/21 History capsule (Florastor) collagenase clostridium histo. 250 1 applic TOPICAL DAILY 14 Days #90 04/17/21 05/18/21 Rx unit/gram topical ointment (Santyl) g bismuth subsalicylate 262 mg/15 mL 524 mg PO QID 04/26/21 05/18/21 History oral suspension (Pepto-Bismol) sodium phosphates 19 gram-7 118 ml TN DAILY PRN 04/26/21 05/18/21 History gram/197 mL enema (Fleet Enema Extra) benzonatate 200 mg capsule 200 mg PO TID 05/13/21 05/18/21 History fluticasone propionate 50 2 spray INTRANASAL DAILY 05/18/21 05/18/21 History mcg/actuation nasal spray,suspension Patient History Medical History Adnexal tumor Anemia CAD (coronary artery disease) Maren infection Cardiomyopathy Chronic incomplete quadriplegia Depression Diabetes type 2, controlled Dysphagia History of DVT (deep vein thrombosis) 02/26/20 LLE History of mechanical ventilation History of DC (myocardial infarction) 2004 History of renal cell cancer HTN (hypertension) Hyperlipemia Hypothyroid Insomnia Ischemic cardiomyopathy Major depressive disorder Mass of left thigh 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) MRSA (methicillin resistant staph aureus) culture positive Myelodysplasia (myelodysplastic syndrome) Neurogenic bowel Pneumonia Respiratory failure, post-operative Seasonal asthma Thrombocytopenia UTI (urinary tract infection) Surgical History H/O excision of lamina of cervical vertebra for decompression of spinal cord H/O percutaneous transluminal coronary angioplasty History of esophagogastroduodenoscopy (EGD) History of right nephrectomy History of thyroidectomy Hx of colonoscopy S/P cardiac catheterization S/P cervical spinal fusion S/P cholecystectomy Social History Smoking Status: Never smoker Hx Alcohol Use: No Hx Substance Use: No Preferred Language: Wolof Communication Ability: Effective Conventional Mortgage Underwriter Required: No Beliefs That Will Affect Care: None marital status: / Current Living Situation: Residential Current Living Situation Comment: [facility] current occupational status: disabled Feels Safe at Home: Yes Safety Concerns: Feels Safe At This Time caffeine: Yes Physical Activity Frequency: Does not Exercise Assistive Devices: Oxygen - Continuous Physical Exam Constitutional: WD/WN, vitals as above no acute distress and not ill appearing Respiratory: normal respiratory effort; no respiratory distress, no labored breathing and no retractions Gastrointestinal (Abdomen): Sacral decubitus wound present with fibrinous tissue at the edges however there is healthy granulation tissue at wound base and there is no palpable abscess or necrotic tissue present. Psychiatric: Orientation: alert and oriented x 3 Results & Data ([facility]) Vital Signs (Past 12 Hours) Vital Signs Temp Pulse Pulse Resp BP Pulse Ox 05/20/21 15:00 77 05/20/21 10:58 37 C 76 16 159/80 H 92 05/20/21 08:00 72 05/20/21 07:20 37.1 C 74 16 133/73 93 05/20/21 05:41 94 H 05/20/21 03:53 37.1 C 71 18 126/69 93 Laboratory Results 05/20/21 05/20/21 05/20/21 Range/Units 12:04 07:47 07:47 WBC 9.72 (4.8-10.8) K/uL RBC 2.67 L (4.2-5.4) M/uL Hgb 9.6 L (12.0-16.0) g/dL Hct 30.0 L (37-47) % MCV 112.4 H (80-100) fL MCH 36.0 H (25-34) pg MCHC 32.0 (32-36) g/dL RDW Std Deviation 62.2 H (36.4-46.3) fL RDW Coeff of Alicia 15.4 H (11.5-14.5) % Plt Count 370 (130-400) K/uL MPV 9.8 (7.4-10.4) fL Immature Gran % (Auto) 0.7 % Neut % (Auto) 77.6 % Lymph % (Auto) 13.0 % Mcpherson % (Auto) 4.9 % Eos % (Auto) 3.4 % Baso % (Auto) 0.4 % Neut # (Auto) 7.54 H (1.4-6.5) K/uL Lymph # (Auto) 1.26 (1.2-3.4) K/uL Mcpherson # (Auto) 0.48 (0.11-0.59) K/uL Eos # (Auto) 0.33 (0-0.5) K/uL Baso # (Auto) 0.04 (0-0.2) K/uL Immature Gran # (Auto) 0.07 H (0.00-0.02) K/uL Macrocytosis Present Sodium 141 (136-145) mmol/L Potassium 3.9 (3.5-5.1) mmol/L Chloride 108 H (98-107) mmol/L Carbon Dioxide 25 (21-32) mmol/L Anion Gap 8.0 (3-11) BUN 15 (7-18) mg/dl Creatinine 1.06 (0.6-1.2) mg/dl Est Cr Clr Drug Dosing 44.1 ml/min Est GFR ( Amer) 59.9 ml/min Est GFR (Non-Af Amer) 51.7 ml/min BUN/Creatinine Ratio 14.5 (10-20) Glucose 79 (70-99) mg/dl POC Glucose 92 (70-99) mg/dl Calcium 8.0 L (8.5-10.1) mg/dl Phosphorus 2.0 L (2.5-4.9) mg/dl Magnesium 2.2 (1.8-2.4) mg/dl Total Bilirubin 0.5 (0.2-1) mg/dl AST 23 (15-37) U/L ALT 16 (12-78) U/L Alkaline Phosphatase 67 (45-117) U/L Total Protein 6.1 L (6.4-8.2) gm/dl Albumin 2.1 L (3.4-5.0) gm/dl Globulin 4.0 (2.5-4.0) gm/dl Albumin/Globulin Ratio 0.5 L (0.9-2) 05/20/21 05/20/21 05/19/21 Range/Units 06:14 00:11 20:37 WBC (4.8-10.8) K/uL RBC (4.2-5.4) M/uL Hgb (12.0-16.0) g/dL Hct (37-47) % MCV (80-100) fL MCH (25-34) pg MCHC (32-36) g/dL RDW Std Deviation (36.4-46.3) fL RDW Coeff of Alicia (11.5-14.5) % Plt Count (130-400) K/uL MPV (7.4-10.4) fL Immature Gran % (Auto) % Neut % (Auto) % Lymph % (Auto) % Mcpherson % (Auto) % Eos % (Auto) % Baso % (Auto) % Neut # (Auto) (1.4-6.5) K/uL Lymph # (Auto) (1.2-3.4) K/uL Mcpherson # (Auto) (0.11-0.59) K/uL Eos # (Auto) (0-0.5) K/uL Baso # (Auto) (0-0.2) K/uL Immature Gran # (Auto) (0.00-0.02) K/uL Macrocytosis Sodium (136-145) mmol/L Potassium (3.5-5.1) mmol/L Chloride (98-107) mmol/L Carbon Dioxide (21-32) mmol/L Anion Gap (3-11) BUN (7-18) mg/dl Creatinine (0.6-1.2) mg/dl Est Cr Clr Drug Dosing ml/min Est GFR ( Amer) ml/min Est GFR (Non-Af Amer) ml/min BUN/Creatinine Ratio (10-20) Glucose (70-99) mg/dl POC Glucose 94 102 H 109 H (70-99) mg/dl Calcium (8.5-10.1) mg/dl Phosphorus (2.5-4.9) mg/dl Magnesium (1.8-2.4) mg/dl Total Bilirubin (0.2-1) mg/dl AST (15-37) U/L ALT (12-78) U/L Alkaline Phosphatase (45-117) U/L Total Protein (6.4-8.2) gm/dl Albumin (3.4-5.0) gm/dl Globulin (2.5-4.0) gm/dl Albumin/Globulin Ratio (0.9-2) 05/19/21 Range/Units 18:16 WBC (4.8-10.8) K/uL RBC (4.2-5.4) M/uL Hgb (12.0-16.0) g/dL Hct (37-47) % MCV (80-100) fL MCH (25-34) pg MCHC (32-36) g/dL RDW Std Deviation (36.4-46.3) fL RDW Coeff of Alicia (11.5-14.5) % Plt Count (130-400) K/uL MPV (7.4-10.4) fL Immature Gran % (Auto) % Neut % (Auto) % Lymph % (Auto) % Mcpherson % (Auto) % Eos % (Auto) % Baso % (Auto) % Neut # (Auto) (1.4-6.5) K/uL Lymph # (Auto) (1.2-3.4) K/uL Mcpherson # (Auto) (0.11-0.59) K/uL Eos # (Auto) (0-0.5) K/uL Baso # (Auto) (0-0.2) K/uL Immature Gran # (Auto) (0.00-0.02) K/uL Macrocytosis Sodium (136-145) mmol/L Potassium (3.5-5.1) mmol/L Chloride (98-107) mmol/L Carbon Dioxide (21-32) mmol/L Anion Gap (3-11) BUN (7-18) mg/dl Creatinine (0.6-1.2) mg/dl Est Cr Clr Drug Dosing ml/min Est GFR ( Amer) ml/min Est GFR (Non-Af Amer) ml/min BUN/Creatinine Ratio (10-20) Glucose (70-99) mg/dl POC Glucose 113 H (70-99) mg/dl Calcium (8.5-10.1) mg/dl Phosphorus (2.5-4.9) mg/dl Magnesium (1.8-2.4) mg/dl Total Bilirubin (0.2-1) mg/dl AST (15-37) U/L ALT (12-78) U/L Alkaline Phosphatase (45-117) U/L Total Protein (6.4-8.2) gm/dl Albumin (3.4-5.0) gm/dl Globulin (2.5-4.0) gm/dl Albumin/Globulin Ratio (0.9-2) Diagnostic Findings COMPARISON STUDY: CT of the abdomen and pelvis February 01, 2021. TECHNIQUE: Axial images of the abdomen and pelvis were obtained without IV contrast. Images were reviewed in the axial, sagittal, and coronal planes. Automated exposure control was utilized for the study. A dose lowering technique was utilized adhering to the principles of ALARA. FINDINGS: No pneumatosis, free air or portal venous gas is present. Evaluation of the abdomen and pelvis is suboptimal on this unenhanced examination. There is no biliary ductal dilatation status post cholecystectomy. A 2.4 cm low- attenuation right adrenal nodule is unchanged. This is likely benign. Right kidney is not visualized and likely surgically absent. Unenhanced images of the left adrenal gland, left kidney and pancreas are unremarkable. There is no evidence for a bowel obstruction. A [place] balloon within the bladder is noted. A septated 6.4 cm left adnexal cystic lesion is again noted. This is similar to prior exam. A large sacral decubitus ulcer is again noted. This was shown on prior CT and MRI. Mild body wall edema is noted within the pelvis and proximal thighs. No fluid collection is identified to suggest an abscess. As before, the inferior most aspect of the sacrum and several proximal coccygeal segments are not visualized. This is similar to prior CT and MRI. Prominent bilateral inguinal lymph nodes are unchanged and are likely reactive. IMPRESSION: 1. Redemonstration of a sacral decubitus ulcer which was shown on prior CT and MRI. Absent inferior sacrum and several proximal coccygeal segments which is unchanged since prior CT. This likely reflects chronic sequela of osteomyelitis. No fluid collection to suggest abscess. 2. No bowel obstruction. 3. Redemonstration of a 6 cm septated left adnexal cystic lesion. This remains indeterminate.
--- NOTE | 2021-05-20 16:44 | Ultrasound Report ---
ULTRASOUND RIGHT LOWER EXTREMITY ARTERIAL CLINICAL HISTORY: Heel ulcer. Osteomyelitis. Preoperative examination. COMPARISON STUDY: No priors. TECHNIQUE: Real-time grayscale and color Doppler sonography of the arteries of the right lower extrem ity is performed from the inguinal crease to the foot. FINDINGS: Atherosclerotic plaque and irregularity seen throughout the arteries of the right lower ext remity. There are triphasic arterial waveforms in the common femoral artery with velocities measuring up to 89 cm/s. The profunda femoris artery is patent with velocities measuring up to 110 cm/s. Triph asic waveforms are seen throughout the superficial and popliteal arteries. Velocities in the superfic ial femoral artery measure up to 125 cm/s, and velocities in the popliteal artery measure up to 150 c m/s. Normal Doppler waveforms are shown within the calf arteries. There is three-vessel runoff to the foot. Velocities in the calf arteries measure up to 121 cm/s. The dorsalis pedis artery is patent wi th velocities measuring up to 36 cm/s. IMPRESSION: Atherosclerotic plaque and irregularity with no sonographic evidence of high-grade stenos is or focal vessel cutoff throughout the arteries of the right lower extremity. Dictated: 05/20/2021 3:53 PM Transcribed: 05/20/2021 4:04 PM Chely [id number] [email or web address] Electronically signed by: Flako Mcdonough M.D. 05/20/2021 4:42 PM
[2021-05-20] MEDS ORDERED: GADOBUTROL 65ML VIAL IV ONE (17:04)
[2021-05-20] MEDS: DOCUSATE SODIUM/SENNA 50/8.6MG TAB PO SCH (17:50)
[2021-05-20] MEDS: MAGNESIUM OXIDE 400 MG TAB PO SCH (17:50)
[2021-05-20] MEDS: POLYETHYLENE (MIRALAX) 17 GM PACK PO SCH (17:51)
[2021-05-20] MEDS ORDERED: ONDANSETRON INJ 2 MG/ML 2 ML VIAL IV PRN (18:20)
[2021-05-20] MEDS: ASCORBIC ACID 500 MG TAB PO SCH (21:27)
[2021-05-20] MEDS: ENOXAPARIN INJ 30 MG/0.3 ML SYR SQ SCH (21:28)
[2021-05-20] MEDS: INSULIN GLARGINE SOLOSTAR 100 UNITS/ML 3 ML PEN SC SCH (21:31)
[2021-05-20] MEDS: ARTIFICIAL TEARS OP SCH (21:42)
[2021-05-20] MEDS ORDERED: BENZOCAINE 20% (ORAJEL) 11.9 GM TUBE MT PRN (23:07)
--- NOTE | 2021-05-20 23:51 | Hospitalist Progress Note ---
Date of Service May 20, 2021 Assessment & Plan (1) Sepsis: Plan: Sepsis with organ dysfunction-acute renal failure and toxic encephalopathy Was hypotensive on admission but received 30 mils per KG crystalloid and now normotensive At present awake and communicative, not encephalopathic Source is right foot osteomyelitis and UTI although with indwelling [place] could well be colonization. ALso with large sacral wound -Cultures pending-no growth to date continue broad spectrum with Meropenem and vancomycin given h/o ESBL E. coli and MRSA continue IVFs Ortho consult appreciated--> arterial doppler negative, awaiting foot/heel MRI, mat need debridement of heel Consult Gen Surgery-recommends chemical debridement of sacral wound and not surgical (2) Osteomyelitis: Plan: Right foot calcaneal osteomyelitis with gasappears to be source of sepsis as above may need debridement with Ortho awaiting Ortho continue abx as above may need ID consult (3) UTI (urinary tract infection): Plan: Possiblecould be colonization; covered at present Change [place] (4) Acute on chronic renal failure: Plan: Acute component likely secondary to sepsis; underlying stage III CKDimprovedfollow (5) CAD (coronary artery disease): Plan: Non acute issuenoted resumption of Plavix; metoprolol held on account of low blood pressure (6) Diabetes type 2, controlled: Plan: Sugars fluctuatingpharmacy glycemic consult (7) HTN (hypertension): Plan: Blood pressure lowmetoprolol held and BPs now improved (8) Hypothyroid: Plan: TSH 157. FT4 0.24 Uncontrolled hypothyroidismdoes not appear to be in myxedema coma; I did not give IV levothyroxine; I elected to obtain endocrinology input-recommend LT4 50 every other day for now Has a h/o thyroidectomy (9) Quadriplegia: Plan: Quadriplegia Developed following elective cervical spine surgery Continue baclofen 10 mg p.o. at bedtime, 5 mg p.o. twice daily for spasms Patient with spastic contractions at baseline, limited use of left shoulder only (10) Anemia: Plan: - Macrocytic - B12, Folate normal - No signs of active bleeding (11) Sacral wound: Plan: Stage IV pressure ulcers, sacral wound Wound care consulted-recommended Surgery Surgery said Santyl and chemical debridement, no surgery Patient with history of pressure ulcers on ankles bilaterally, and sacral wound (12) Adnexal cyst: Plan: 6 cm septated, stable from previous follow as outpt with [facility] Plan: DVT proph-Lovenox Dispo-continued stay Admission and Anticipated Discharge Date Admission Date: May 18, 2021 Subjective Patient reports pain all over her body which is chronic. She has spasms in her extremities at times. I discussed her care with surgery and orthopedics today. Denies chest pains or shortness of breath. Review of Systems Review of Systems: All systems reviewed & are unremarkable except as noted in HPI & below Physical Exam Constitutional: WD/WN, vitals as above Eyes: + anicteric sclerae Neck: trachea midline, no thyromegaly Respiratory: normal respiratory effort, lungs clear to auscultation Cardiovascular: RRR, no murmur, no edema Chest (Breasts): Chest: normal inspection of chest Gastrointestinal (Abdomen): normal bowel sounds, soft, nontender, no hepatosplenomegaly Musculoskeletal: Extremities: extremities normal to inspection; no cyanosis and no clubbing Skin: + lesion (sacral decub assesses pictures,did not remove dressing) and + ulcer (right heel large black eschar with purulent drainage) Neurologic: + focal motor deficit (Weakness in all 4 extremities lower greater than upper extremities) and awake; + does not move all extremities and not confused with spasms in bilat legs/flexion contractures Psychiatric: Orientation: alert, oriented x 3 and cooperative Affect: + depressed affect and + flat affect Results & Data Results & Data ([facility]) Vital Signs (Past 12 Hours) Vital Signs Temp Pulse Pulse Resp BP BP Pulse Ox 05/20/21 23:32 67 05/20/21 23:09 36.5 C 82 18 119/71 95 05/20/21 19:37 74 18 136/76 94 05/20/21 15:00 77 Laboratory Results 05/20/21 05/20/21 05/20/21 Range/Units 19:49 17:37 12:04 WBC (4.8-10.8) K/uL RBC (4.2-5.4) M/uL Hgb (12.0-16.0) g/dL Hct (37-47) % MCV (80-100) fL MCH (25-34) pg MCHC (32-36) g/dL RDW Std Deviation (36.4-46.3) fL RDW Coeff of Alicia (11.5-14.5) % Plt Count (130-400) K/uL MPV (7.4-10.4) fL Immature Gran % (Auto) % Neut % (Auto) % Lymph % (Auto) % [place] % (Auto) % Eos % (Auto) % Baso % (Auto) % Neut # (Auto) (1.4-6.5) K/uL Lymph # (Auto) (1.2-3.4) K/uL [place] # (Auto) (0.11-0.59) K/uL Eos # (Auto) (0-0.5) K/uL Baso # (Auto) (0-0.2) K/uL Immature Gran # (Auto) (0.00-0.02) K/uL Macrocytosis Sodium (136-145) mmol/L Potassium (3.5-5.1) mmol/L Chloride (98-107) mmol/L Carbon Dioxide (21-32) mmol/L Anion Gap (3-11) BUN (7-18) mg/dl Creatinine (0.6-1.2) mg/dl Est Cr Clr Drug Dosing ml/min Est GFR ( Amer) ml/min Est GFR (Non-Af Amer) ml/min BUN/Creatinine Ratio (10-20) Glucose (70-99) mg/dl POC Glucose 179 H 159 H 92 (70-99) mg/dl Calcium (8.5-10.1) mg/dl Phosphorus (2.5-4.9) mg/dl Magnesium (1.8-2.4) mg/dl Total Bilirubin (0.2-1) mg/dl AST (15-37) U/L ALT (12-78) U/L Alkaline Phosphatase (45-117) U/L Total Protein (6.4-8.2) gm/dl Albumin (3.4-5.0) gm/dl Globulin (2.5-4.0) gm/dl Albumin/Globulin Ratio (0.9-2) 05/20/21 05/20/21 05/20/21 Range/Units 07:47 07:47 06:14 WBC 9.72 (4.8-10.8) K/uL RBC 2.67 L (4.2-5.4) M/uL Hgb 9.6 L (12.0-16.0) g/dL Hct 30.0 L (37-47) % MCV 112.4 H (80-100) fL MCH 36.0 H (25-34) pg MCHC 32.0 (32-36) g/dL RDW Std Deviation 62.2 H (36.4-46.3) fL RDW Coeff of Alicia 15.4 H (11.5-14.5) % Plt Count 370 (130-400) K/uL MPV 9.8 (7.4-10.4) fL Immature Gran % (Auto) 0.7 % Neut % (Auto) 77.6 % Lymph % (Auto) 13.0 % [place] % (Auto) 4.9 % Eos % (Auto) 3.4 % Baso % (Auto) 0.4 % Neut # (Auto) 7.54 H (1.4-6.5) K/uL Lymph # (Auto) 1.26 (1.2-3.4) K/uL [place] # (Auto) 0.48 (0.11-0.59) K/uL Eos # (Auto) 0.33 (0-0.5) K/uL Baso # (Auto) 0.04 (0-0.2) K/uL Immature Gran # (Auto) 0.07 H (0.00-0.02) K/uL Macrocytosis Present Sodium 141 (136-145) mmol/L Potassium 3.9 (3.5-5.1) mmol/L Chloride 108 H (98-107) mmol/L Carbon Dioxide 25 (21-32) mmol/L Anion Gap 8.0 (3-11) BUN 15 (7-18) mg/dl Creatinine 1.06 (0.6-1.2) mg/dl Est Cr Clr Drug Dosing 44.1 ml/min Est GFR ( Amer) 59.9 ml/min Est GFR (Non-Af Amer) 51.7 ml/min BUN/Creatinine Ratio 14.5 (10-20) Glucose 79 (70-99) mg/dl POC Glucose 94 (70-99) mg/dl Calcium 8.0 L (8.5-10.1) mg/dl Phosphorus 2.0 L (2.5-4.9) mg/dl Magnesium 2.2 (1.8-2.4) mg/dl Total Bilirubin 0.5 (0.2-1) mg/dl AST 23 (15-37) U/L ALT 16 (12-78) U/L Alkaline Phosphatase 67 (45-117) U/L Total Protein 6.1 L (6.4-8.2) gm/dl Albumin 2.1 L (3.4-5.0) gm/dl Globulin 4.0 (2.5-4.0) gm/dl Albumin/Globulin Ratio 0.5 L (0.9-2) 05/20/21 Range/Units 00:11 WBC (4.8-10.8) K/uL RBC (4.2-5.4) M/uL Hgb (12.0-16.0) g/dL Hct (37-47) % MCV (80-100) fL MCH (25-34) pg MCHC (32-36) g/dL RDW Std Deviation (36.4-46.3) fL RDW Coeff of Alicia (11.5-14.5) % Plt Count (130-400) K/uL MPV (7.4-10.4) fL Immature Gran % (Auto) % Neut % (Auto) % Lymph % (Auto) % [place] % (Auto) % Eos % (Auto) % Baso % (Auto) % Neut # (Auto) (1.4-6.5) K/uL Lymph # (Auto) (1.2-3.4) K/uL [place] # (Auto) (0.11-0.59) K/uL Eos # (Auto) (0-0.5) K/uL Baso # (Auto) (0-0.2) K/uL Immature Gran # (Auto) (0.00-0.02) K/uL Macrocytosis Sodium (136-145) mmol/L Potassium (3.5-5.1) mmol/L Chloride (98-107) mmol/L Carbon Dioxide (21-32) mmol/L Anion Gap (3-11) BUN (7-18) mg/dl Creatinine (0.6-1.2) mg/dl Est Cr Clr Drug Dosing ml/min Est GFR ( Amer) ml/min Est GFR (Non-Af Amer) ml/min BUN/Creatinine Ratio (10-20) Glucose (70-99) mg/dl POC Glucose 102 H (70-99) mg/dl Calcium (8.5-10.1) mg/dl Phosphorus (2.5-4.9) mg/dl Magnesium (1.8-2.4) mg/dl Total Bilirubin (0.2-1) mg/dl AST (15-37) U/L ALT (12-78) U/L Alkaline Phosphatase (45-117) U/L Total Protein (6.4-8.2) gm/dl Albumin (3.4-5.0) gm/dl Globulin (2.5-4.0) gm/dl Albumin/Globulin Ratio (0.9-2) Diagnostic Findings Duplex Scan Lower Extremity Artery 05/20/21 14:19 ULTRASOUND RIGHT LOWER EXTREMITY ARTERIAL CLINICAL HISTORY: Heel ulcer. Osteomyelitis. Preoperative examination. COMPARISON STUDY: No priors. TECHNIQUE: Real-time grayscale and color Doppler sonography of the arteries of the right lower extremity is performed from the inguinal crease to the foot. FINDINGS: Atherosclerotic plaque and irregularity seen throughout the arteries of the right lower extremity. There are triphasic arterial waveforms in the common femoral artery with velocities measuring up to 89 cm/s. The profunda femoris artery is patent with velocities measuring up to 110 cm/s. Triphasic waveforms are seen throughout the superficial and popliteal arteries. Velocities in the superficial femoral artery measure up to 125 cm/s, and velocities in the popliteal artery measure up to 150 cm/s. Normal Doppler waveforms are shown within the calf arteries. There is three-vessel runoff to the foot. Velocities in the calf arteries measure up to 121 cm/s. The dorsalis pedis artery is patent with velocities measuring up to 36 cm/s. IMPRESSION: Atherosclerotic plaque and irregularity with no sonographic evidence of high-grade stenosis or focal vessel cutoff throughout the arteries of the right lower extremity. Dictated: 05/20/2021 3:53 PM Transcribed: 05/20/2021 4:04 PM [place] [id number] Shruthi Electronically signed by: Flako Mcdonough M.D. 05/20/2021 4:42 PM PG Care Time/CCT Total # of Minutes Spent Total Time Spent with Patient: Total time spent is greater than 50% in coordination of care (as documented) at patient's floor/unit and/or counseling patient: Coding Level of Care Code 97896 Subseq Hosp Care Lvl 3 Diagnoses Sepsis A41.9 Osteomyelitis M86.9 UTI (urinary tract infection) N39.0 Acute on chronic renal failure N17.9; N18.9 CAD (coronary artery disease) I25.10 Associated angina: without angina Coronary Disease-Associated Artery/Lesion type: [place] artery [place] vs. transplanted heart: [place] heart Diabetes type 2, controlled E11.9 Diabetes mellitus complication status: without complication Diabetes mellitus jail insulin use: unspecified jail insulin use status HTN (hypertension) I10 Hypertension type: unspecified Hypothyroid E03.9 Hypothyroidism type: unspecified Quadriplegia G82.50 Anemia D64.9 Anemia type: unspecified type Sacral wound S31.000A Adnexal cyst N94.9 (1) CAD (coronary artery disease) Associated angina: without angina Coronary Disease-Associated Artery/Lesion type: [place] artery [place] vs. transplanted heart: [place] heart Qualified Code(s): I25.10 - Atherosclerotic heart disease of [place] coronary artery without angina pectoris (2) Anemia Anemia type: unspecified type Qualified Code(s): D64.9 - Anemia, unspecified (3) Hypothyroid Hypothyroidism type: unspecified Qualified Code(s): E03.9 - Hypothyroidism, unspecified (4) Diabetes type 2, controlled Diabetes mellitus complication status: without complication Diabetes mellitus [place] insulin use: unspecified jail insulin use status Qualified Code(s): E11.9 - Type 2 diabetes mellitus without complications (5) HTN (hypertension) Hypertension type: unspecified Qualified Code(s): I10 - Essential (primary) hypertension
[2021-05-21] MEDS ORDERED: CYCLOBENZAPRINE HCL 5 MG TAB PO ONE (03:24)
[2021-05-21] MEDS: LACTATED RINGER'S 1,000 ML IV SCH ×2 (04:06→23:50)
[2021-05-21] MEDS: MEROPENEM 500 MG in SYRINGE 0 ML IV SCH ×3 (05:54→22:13)
[2021-05-21] MEDS: BENZONATATE 100 MG CAPSULE PO SCH ×3 (08:16→20:30)
[2021-05-21] MEDS: GABAPENTIN 100 MG CAP PO SCH ×3 (08:16→20:31)
[2021-05-21] MEDS: POT PHOSPHATE MONOBASIC W/ SOD TAB PO SCH ×4 (08:16→20:31)
[2021-05-21] MEDS: DOCUSATE SODIUM/SENNA 50/8.6MG TAB PO SCH (08:16)
[2021-05-21] MEDS: POLYETHYLENE (MIRALAX) 17 GM PACK PO SCH (08:16)
[2021-05-21] MEDS: SACCHAROMYCES BOULARDII 250 MG CAP PO SCH ×2 (08:16→20:31)
[2021-05-21] MEDS: FLUTICASONE PROPIONATE NA SPR 16 GM BTL NAE SCH (08:16)
[2021-05-21] MEDS: MAGNESIUM OXIDE 400 MG TAB PO SCH (08:16)
[2021-05-21] MEDS: BACLOFEN 10 MG TAB PO SCH ×3 (08:16→20:30)
[2021-05-21] MEDS: ASCORBIC ACID 500 MG TAB PO SCH ×2 (08:16→20:30)
[2021-05-21] MEDS: CLOPIDOGREL BISULFATE 75 MG TAB PO SCH (08:16)
[2021-05-21] MEDS: MULTIVITAMIN TAB PO SCH (08:16)
[2021-05-21] MEDS: COLLAGENASE OINT 30 GM TUBE TOP SCH (08:19)
[2021-05-21] MEDS: INSULIN ASPART 100 UNITS/ML 3 ML PEN SC SCH ×4 (08:20→20:32)
[2021-05-21 08:42] LABS: Basophils # (auto) 0.06 K/uL (0-0.2); Basophils % (auto) 0.7 %; Eosinophils # (auto) 0.28 K/uL (0-0.5); Eosinophils % (auto) 3.2 %; Hematocrit (blood only) 28.8 % (37-47); Hemoglobin 9.5 g/dL (12.0-16.0); Immature Granulocytes # (auto) 0.07 K/uL (0.00-0.02); Immature Granulocytes % (auto) 0.8 %; Lymphocytes # (auto) 1.41 K/uL (1.2-3.4); Mean Corpuscular Hemoglobin 36.1 pg (25-34); Mean Corpuscular Volume 109.5 fL (80-100); Monocytes # (auto) 0.49 K/uL (0.11-0.59); Monocytes % (auto) 5.5 %; Neutrophils # (auto) 6.53 K/uL (1.4-6.5); Neutrophils % (auto) 73.8 %; Platelet Count 408 K/uL (130-400); RDW Coefficient of Variation 15.1 % (11.5-14.5); RDW Standard Deviation 59.3 fL (36.4-46.3); Red Blood Count 2.63 M/uL (4.2-5.4); White Blood Count 8.84 K/uL (4.8-10.8)
[2021-05-21 09:00] LABS: BUN Creatinine Ratio 10.8 (10-20); Calcium 8.2 mg/dl (8.5-10.1); Est GFR (African American) 48.6 ml/min; Est GFR (Non-African American) 41.9 ml/min; Potassium 3.8 mmol/L (3.5-5.1)
--- NOTE | 2021-05-21 09:21 | Pharmacy Report ---
Pharmacy Vanc AUC Short Note - Date of Service May 21, 2021 - Assessment & Plan Assessment 75 year old F receiving vancomycin and meropenem for treatment of sepsis secondary to right foot osteomyelitis. Patient has history of infection with ESBL E.coli and MRSA. Noted increase in SCr from 1.06 -> 1.26 mg/dL. Leukocytosis much improved (18 K -> 8 K). Patient has been afebrile ~72 hours. Day # 4 of antimicrobial therapy. Plan Vancomycin * AUC/VILLA is the preferred PK/PD target for vancomycin * AUC guided dosing is effective and associated with decreased risk of nephrotoxicity compared to traditional trough targets * Random level assessed this morning and returned at 18. This level is predicted to achieve an AUC > 600 and 21% risk of nephrotoxicity, will scale back on dose to 1 g IV q24h in order to achieve goal AUC/VILLA of 400-600 mg/L.hr and lower risk of nephrotoxicity (~14%) * Will order follow-up levels as necessary Meropenem * Target dose of 500 mg IV q6h for osteomyelitis * Dose reduced to 500 mg IV q8h based on eCrCl of 37 mL/min - appropriate Pharmacy will continue to follow and will adjust dose/frequency as necessary. Thank you.
[2021-05-21] MEDS: VANCOMYCIN HCL 1,000 MG in SODIUM CHLORIDE 0.9% 250 ML IV SCH (10:51)
--- NOTE | 2021-05-21 12:41 | Pharmacy Report ---
Pharmacy Glycemic Short Note 2 - Date of Service May 21, 2021 - Glycemic Short BSG Results (Last 24 hours): 05/20/21 05/20/21 05/21/21 17:37 19:49 07:45 Glucose POC Glucose 159 H 179 H 111 H 05/21/21 05/21/21 08:07 12:29 Glucose 93 POC Glucose 135 H OUTPATIENT ANTIDIABETIC REGIMEN: * Lantus 20 units SQ PM * NovoLog with meals * A1c = 6.9% on 04/11/21 ASSESSMENT: 05/21 * BSGs well controlled yesterday ranging 92-179 mg/dL * Received 26 units of insulin (20 of which was basal) * Fasting BSG of 111 mg/dL this morning - will continue current Lantus dose * Continues on IV vancomycin/meropenem 05/19 * 75yo T2DM female with excellent outpatient control per recent A1c * Pt is maintained on SQ basal bolus insulin regimen as an outpatient - will continue outpatient basal insulin and use weight based CF/CR for NovoLog since CHO intake inhouse can be different/less than outpatient. * Titrate based on BSG trends to maintain BSGs 110-140 mg/dl range. PLAN FOR INPATIENT GLYCEMIC CONTROL: * Basal insulin * Lantus 20 units SQ HS * Bolus insulin * NovoLog per scale ACHS or Q6hrs while NPO * Goal Range: Low 100 mg/dL - High 140 mg/dL * Correction Factor: 35 mg/dL/unit * Nutritional / Prandial insulin per carb ratio of 1 unit per 11 grams CHO consumed PLAN FOR DISCHARGE: * A1c is in goal range - no changes needed to outpatient insulin regimen at [facility].
--- NOTE | 2021-05-21 13:04 | Magnetic Resonance Report ---
MRI OF THE RIGHT ANKLE COMBO CLINICAL HISTORY: Calcaneal osteomyelitis. COMPARISON STUDY: CT scan of the right foot dated 05/19/2021. TECHNIQUE: MRI of the right ankle is performed utilizing various T1 and T2-weighted sequences in the axial, sagittal, and coronal planes. Contrast-enhanced sequences were acquired following the IV admin istration of 7.2 cc of Gadavist. The examination is significantly compromised by motion artifact. FINDINGS: Again seen is postoperative change from dorsal resection of the calcaneus. Marrow signal in tensity is markedly heterogeneous. Again seen is a large ulceration overlying the dorsal and plantar aspect of the heel with surrounding soft tissue infiltration, subcutaneous gas, and fluid. No organiz ed/drainable fluid collection is identified to indicate abscess. There is erosive change identified w ithin the dorsal aspect of the calcaneus along the resection margin. This is seen along the dorsal as pect of the bone and the base of the bone. There is also erosive/destructive change along the superio r aspect of the dorsal calcaneus. The findings are consistent with osteomyelitis. There is a large pl prerna heel spur. The Achilles tendon is thickened and tendonotic. This does not appear to attach to t he calcaneus. The ankle mortise is maintained. No osteochondral defect is seen in the talar dome. The re is a small joint effusion. The ankle tendons are not well evaluated due to motion artifact. There is tendinopathy of the tibialis posterior and peroneal tendons. No full-thickness rupture is identifi ed. There is diffuse atrophy and myositis of the regional musculature. Degenerative changes seen thro ughout the midfoot. IMPRESSION: 1. Significantly motion compromised examination. 2. Postoperative change and findings of osteomyelitis involving the dorsal calcaneus as above. This w as better assessed on the recent CT scan. 3. Large cutaneous ulceration overlying the heel with associated subcutaneous gas and cellulitis. 4. No organized/drainable fluid collection is identified. 5. The Achilles tendon does not appear to attach to the calcaneus. Dictated: 05/21/2021 11:13 AM Transcribed: 05/21/2021 12:43 PM Aggie [id number] [email or web address] Electronically signed by: Flako Mcdonough M.D. 05/21/2021 1:03 PM
--- NOTE | 2021-05-21 14:05 | Communication Note ---
Date of Service: May 21, [address] Maher last night. At a minimum, the patient will need an irrigation and debridement of the heel with implantation of antibiotic beads. He also discussed that she might need a BKA sooner rather than later. Dr. Maher stated that she was going to discuss her options with family and make a decision. Patient seen at bedside last evening. Lengthy discussion had regarding likely possibility for need of BKA. Patient understanding however would like to discuss further with her family and friends for guidance. We will await further discussion from medical's care team and patient's family members prior to final decision. In the meantime continue with waffle boots and daily dressing changes until more definitive care for the lower extremity can be agreed to. Thank for the opportunity consult the care of this patient. Harry Maher DO
--- NOTE | 2021-05-21 16:41 | Hospitalist Progress Note ---
Date of Service May 21, 2021 Assessment & Plan (1) Sepsis: Plan: Sepsis with organ dysfunction-acute renal failure and toxic encephalopathy Was hypotensive on admission but received 30 mils per KG crystalloid and now normotensive At present awake and communicative, not encephalopathic Source is right foot osteomyelitis and UTI although with indwelling [place] could well be colonization. ALso with large sacral wound -blood Cultures pending-no growth to date continue broad spectrum with Meropenem and vancomycin given h/o ESBL E. coli and MRSA can dc IVFs Ortho consult appreciated--> arterial doppler negative, foot/heel MRI with OM of heel, ulcer with gas, no abscess,+tendonitis, Achilles tendon not attached,diffuse myositis -Ortho plans debridement at a minimum, BKA at most-pt wants to discuss with her daughter and decide but is leaning towards debridement only for now Consult Gen Surgery-recommends chemical debridement of sacral wound and not surgical (2) Osteomyelitis: Plan: Right foot calcaneal osteomyelitis with gasappears to be source of sepsis as above - needs debridement with Ortho vs BKA as above continue abx as above may need ID consult (3) UTI (urinary tract infection): Plan: Possiblecould be colonization; covered at present will ensure [place] has been exchanged (4) Acute on chronic renal failure: Plan: Acute component likely secondary to sepsis; underlying stage III CKDimprovedfollow (5) CAD (coronary artery disease): Plan: Non acute issuenoted resumption of Plavix; metoprolol held on account of low blood pressure (6) Diabetes type 2, controlled: Plan: Glucose fairly well controlled -pharmacy glycemic consult continue insulin (7) HTN (hypertension): Plan: Blood pressure lowmetoprolol held and BPs now improved (8) Hypothyroid: Plan: TSH 157. FT4 0.24 Uncontrolled hypothyroidismdoes not appear to be in myxedema coma; I did not give IV levothyroxine; I elected to obtain endocrinology input-recommend LT4 50 every other day for now and then 50mcg daily on 05/27 Has a h/o thyroidectomy (9) Quadriplegia: Plan: Quadriplegia Developed following elective cervical spine surgery Continue baclofen 10 mg p.o. at bedtime, 5 mg p.o. twice daily for spasms Patient with spastic contractions at baseline, limited use of left shoulder only (10) Anemia: Plan: - Macrocytic - B12, Folate normal - No signs of active bleeding hgb stable today at 9.5 needs w/u for MDS as outpt (11) Sacral wound: Plan: Stage IV pressure ulcers, sacral wound Wound care consulted-recommended Surgery consult Surgery said Santyl and chemical debridement, no surgery Patient with history of pressure ulcers on ankles bilaterally, and sacral wound -restarted home Vit C, MVI -continue to offload pressure, air mattress (12) Adnexal cyst: Plan: 6 cm septated, stable from previous follow as outpt with [employer] Plan: DVT proph-Lovenox Dispo-continued stay Admission and Anticipated Discharge Date Admission Date: May 18, 2021 Subjective Pt feels better today, not as much pain. Reports she did not get her baclofen on time yesterday which is why she had keven many spasms and pain. She understands s he needs foot debridement vs BKA and has not yet had a chance to talk toher daughter about it. She is leaning towards a debridement. Is moving her bowels, making urine in [place], eating. Feels a little hot today. Tele with NSR, rates 60-70s, PVCs Review of Systems Review of Systems: All systems reviewed & are unremarkable except as noted in HPI & below Physical Exam Constitutional: WD/WN, vitals as above Eyes: + anicteric sclerae Neck: trachea midline, no thyromegaly Respiratory: normal respiratory effort, lungs clear to auscultation Cardiovascular: RRR, no murmur, no edema Chest (Breasts): Chest: normal inspection of chest Gastrointestinal (Abdomen): normal bowel sounds, soft, nontender, no hepatosplenomegaly Musculoskeletal: Extremities: extremities normal to inspection; no cyanosis and no clubbing Skin: no rashes, warm and dry + lesion (sacral decub assessed pictures,did not remove dressing) and + ulcer (right heel large black eschar with purulent drainage) Neurologic: + focal motor deficit (Weakness in all 4 extremities lower greater than upper extremities) and awake; + does not move all extremities and not confused Psychiatric: Orientation: alert, oriented x 3 and cooperative Affect: + flat affect Results & Data Results & Data ([facility]) Vital Signs (Past 12 Hours) Vital Signs Temp Pulse Pulse Resp BP Pulse Ox 05/21/21 15:13 70 05/21/21 15:12 37.1 C 78 18 110/72 95 05/21/21 11:15 37.1 C 70 18 122/64 93 05/21/21 07:32 70 05/21/21 07:14 36.6 C 70 18 154/70 H 94 Laboratory Results 05/21/21 05/21/21 05/21/21 Range/Units 16:42 12:29 12:04 WBC (4.8-10.8) K/uL RBC (4.2-5.4) M/uL Hgb (12.0-16.0) g/dL Hct (37-47) % MCV (80-100) fL MCH (25-34) pg MCHC (32-36) g/dL RDW Std Deviation (36.4-46.3) fL RDW Coeff of Alicia (11.5-14.5) % Plt Count (130-400) K/uL MPV (7.4-10.4) fL Immature Gran % (Auto) % Neut % (Auto) % Lymph % (Auto) % [place] % (Auto) % Eos % (Auto) % Baso % (Auto) % Neut # (Auto) (1.4-6.5) K/uL Lymph # (Auto) (1.2-3.4) K/uL [place] # (Auto) (0.11-0.59) K/uL Eos # (Auto) (0-0.5) K/uL Baso # (Auto) (0-0.2) K/uL Immature Gran # (Auto) (0.00-0.02) K/uL Sodium (136-145) mmol/L Potassium (3.5-5.1) mmol/L Chloride (98-107) mmol/L Carbon Dioxide (21-32) mmol/L Anion Gap (3-11) BUN (7-18) mg/dl Creatinine (0.6-1.2) mg/dl Est Cr Clr Drug Dosing ml/min Est GFR ( Amer) ml/min Est GFR (Non-Af Amer) ml/min BUN/Creatinine Ratio (10-20) Glucose (70-99) mg/dl POC Glucose 162 H 135 H 142 H (70-99) mg/dl Calcium (8.5-10.1) mg/dl Random Vancomycin mcg/ml 08/24/21 08/24/21 08/24/21 Range/Units 08:07 08:07 08:07 WBC 8.84 (4.8-10.8) K/uL RBC 2.63 L (4.2-5.4) M/uL Hgb 9.5 L (12.0-16.0) g/dL Hct 28.8 L (37-47) % MCV 109.5 H (80-100) fL MCH 36.1 H (25-34) pg MCHC 33.0 (32-36) g/dL RDW Std Deviation 59.3 H (36.4-46.3) fL RDW Coeff of Alicia 15.1 H (11.5-14.5) % Plt Count 408 H (130-400) K/uL MPV 10.0 (7.4-10.4) fL Immature Gran % (Auto) 0.8 % Neut % (Auto) 73.8 % Lymph % (Auto) 16.0 % [place] % (Auto) 5.5 % Eos % (Auto) 3.2 % Baso % (Auto) 0.7 % Neut # (Auto) 6.53 H (1.4-6.5) K/uL Lymph # (Auto) 1.41 (1.2-3.4) K/uL [place] # (Auto) 0.49 (0.11-0.59) K/uL Eos # (Auto) 0.28 (0-0.5) K/uL Baso # (Auto) 0.06 (0-0.2) K/uL Immature Gran # (Auto) 0.07 H (0.00-0.02) K/uL Sodium 140 (136-145) mmol/L Potassium 3.8 (3.5-5.1) mmol/L Chloride 107 (98-107) mmol/L Carbon Dioxide 27 (21-32) mmol/L Anion Gap 7.0 (3-11) BUN 14 (7-18) mg/dl Creatinine 1.26 H (0.6-1.2) mg/dl Est Cr Clr Drug Dosing 37.0 ml/min Est GFR ( Amer) 48.6 ml/min Est GFR (Non-Af Amer) 41.9 ml/min BUN/Creatinine Ratio 10.8 (10-20) Glucose 93 (70-99) mg/dl POC Glucose (70-99) mg/dl Calcium 8.2 L (8.5-10.1) mg/dl Random Vancomycin 18.0 mcg/ml 05/21/21 05/20/21 05/20/21 Range/Units 07:45 19:49 17:37 WBC (4.8-10.8) K/uL RBC (4.2-5.4) M/uL Hgb (12.0-16.0) g/dL Hct (37-47) % MCV (80-100) fL MCH (25-34) pg MCHC (32-36) g/dL RDW Std Deviation (36.4-46.3) fL RDW Coeff of Alicia (11.5-14.5) % Plt Count (130-400) K/uL MPV (7.4-10.4) fL Immature Gran % (Auto) % Neut % (Auto) % Lymph % (Auto) % [place] % (Auto) % Eos % (Auto) % Baso % (Auto) % Neut # (Auto) (1.4-6.5) K/uL Lymph # (Auto) (1.2-3.4) K/uL [place] # (Auto) (0.11-0.59) K/uL Eos # (Auto) (0-0.5) K/uL Baso # (Auto) (0-0.2) K/uL Immature Gran # (Auto) (0.00-0.02) K/uL Sodium (136-145) mmol/L Potassium (3.5-5.1) mmol/L Chloride (98-107) mmol/L Carbon Dioxide (21-32) mmol/L Anion Gap (3-11) BUN (7-18) mg/dl Creatinine (0.6-1.2) mg/dl Est Cr Clr Drug Dosing ml/min Est GFR ( Amer) ml/min Est GFR (Non-Af Amer) ml/min BUN/Creatinine Ratio (10-20) Glucose (70-99) mg/dl POC Glucose 111 H 179 H 159 H (70-99) mg/dl Calcium (8.5-10.1) mg/dl Random Vancomycin mcg/ml Diagnostic Findings Ankle MRI 05/20/21 14:18 MRI OF THE RIGHT ANKLE COMBO CLINICAL HISTORY: Calcaneal osteomyelitis. COMPARISON STUDY: CT scan of the right foot dated 05/19/2021. TECHNIQUE: MRI of the right ankle is performed utilizing various T1 and T2- weighted sequences in the axial, sagittal, and coronal planes. Contrast-enhanced sequences were acquired following the IV administration of 7.2 cc of Gadavist. The examination is significantly compromised by motion artifact. FINDINGS: Again seen is postoperative change from dorsal resection of the calcaneus. Marrow signal intensity is markedly heterogeneous. Again seen is a large ulceration overlying the dorsal and plantar aspect of the heel with surrounding soft tissue infiltration, subcutaneous gas, and fluid. No organized/drainable fluid collection is identified to indicate abscess. There is erosive change identified within the dorsal aspect of the calcaneus along the re section margin. This is seen along the dorsal aspect of the bone and the base of the bone. There is also erosive/destructive change along the superior aspect of the dorsal calcaneus. The findings are consistent with osteomyelitis. There is a large plantar heel spur. The Achilles tendon is thickened and tendonotic. This does not appear to attach to the calcaneus. The ankle mortise is maintained. No osteochondral defect is seen in the talar dome. There is a small joint effusion. The ankle tendons are not well evaluated due to motion artifact. There is tendinopathy of the tibialis posterior and peroneal tendons. No full-thickness rupture is identified. There is diffuse atrophy and myositis of the regional musculature. Degenerative changes seen throughout the midfoot. IMPRESSION: 1. Significantly motion compromised examination. 2. Postoperative change and findings of osteomyelitis involving the dorsal calcaneus as above. This was better assessed on the recent CT scan. 3. Large cutaneous ulceration overlying the heel with associated subcutaneous gas and cellulitis. 4. No organized/drainable fluid collection is identified. 5. The Achilles tendon does not appear to attach to the calcaneus. Dictated: 05/21/2021 11:13 AM Transcribed: 05/21/2021 12:43 PM Aggie [id number] Ryan Electronically signed by: Flako Mcdonough M.D. 05/21/2021 1:03 PM PG Care Time/CCT Total # of Minutes Spent Total Time Spent with Patient: Total time spent is greater than 50% in coordination of care (as documented) at patient's floor/unit and/or counseling patient: Coding Level of Care Code 64920 Subseq Hosp Care Lvl 2 Diagnoses Sepsis A41.9 Osteomyelitis M86.9 UTI (urinary tract infection) N39.0 Acute on chronic renal failure N17.9; N18.9 CAD (coronary artery disease) I25.10 Coronary Disease-Associated Artery/Lesion type: [place] artery [place] vs. transplanted heart: [place] heart Associated angina: without angina Diabetes type 2, controlled E11.9 Diabetes mellitus salvage determiner insulin use: unspecified long-term insulin use status Diabetes mellitus complication status: without complication HTN (hypertension) I10 Hypertension type: unspecified Hypothyroid E03.9 Hypothyroidism type: unspecified Quadriplegia G82.50 Anemia D64.9 Anemia type: unspecified type Sacral wound S31.000A Adnexal cyst N94.9 (1) CAD (coronary artery disease) Coronary Disease-Associated Artery/Lesion type: [place] artery [place] vs. transplanted heart: [place] heart Associated angina: without angina Qualified Code(s): I25.10 - Atherosclerotic heart disease of [place] coronary artery without angina pectoris (2) Diabetes type 2, controlled Diabetes mellitus salvage determiner insulin use: unspecified long-term insulin use status Diabetes mellitus complication status: without complication Qualified Code(s): E11.9 - Type 2 diabetes mellitus without complications (3) HTN (hypertension) Hypertension type: unspecified Qualified Code(s): I10 - Essential (primary) hypertension (4) Hypothyroid Hypothyroidism type: unspecified Qualified Code(s): E03.9 - Hypothyroidism, unspecified (5) Anemia Anemia type: unspecified type Qualified Code(s): D64.9 - Anemia, unspecified
[2021-05-21] MEDS: ARTIFICIAL TEARS OP SCH (20:27)
[2021-05-21] MEDS: INSULIN GLARGINE SOLOSTAR 100 UNITS/ML 3 ML PEN SC SCH (20:33)
[2021-05-21] MEDS: ENOXAPARIN INJ 30 MG/0.3 ML SYR SQ SCH (22:12)
[2021-05-22] MEDS: LEVOTHYROXINE SODIUM 50 MCG TABLET PO SCH (05:30)
[2021-05-22] MEDS: MEROPENEM 500 MG in SYRINGE 0 ML IV SCH ×3 (05:30→22:39)
[2021-05-22] MEDS: VANCOMYCIN HCL 1,000 MG in SODIUM CHLORIDE 0.9% 250 ML IV SCH (09:12)
[2021-05-22] MEDS: POT PHOSPHATE MONOBASIC W/ SOD TAB PO SCH ×4 (09:14→22:48)
[2021-05-22] MEDS: MULTIVITAMIN TAB PO SCH (09:14)
[2021-05-22] MEDS: BENZONATATE 100 MG CAPSULE PO SCH ×3 (09:14→22:44)
[2021-05-22] MEDS: DOCUSATE SODIUM/SENNA 50/8.6MG TAB PO SCH (09:14)
[2021-05-22] MEDS: BACLOFEN 10 MG TAB PO SCH ×3 (09:14→22:44)
[2021-05-22] MEDS: FLUTICASONE PROPIONATE NA SPR 16 GM BTL NAE SCH (09:14)
[2021-05-22] MEDS: GABAPENTIN 100 MG CAP PO SCH ×3 (09:14→22:41)
[2021-05-22] MEDS: ASCORBIC ACID 500 MG TAB PO SCH ×2 (09:14→22:48)
[2021-05-22] MEDS: MAGNESIUM OXIDE 400 MG TAB PO SCH (09:14)
[2021-05-22] MEDS: POLYETHYLENE (MIRALAX) 17 GM PACK PO SCH (09:14)
[2021-05-22] MEDS: CLOPIDOGREL BISULFATE 75 MG TAB PO SCH (09:14)
[2021-05-22] MEDS: INSULIN ASPART 100 UNITS/ML 3 ML PEN SC SCH ×4 (09:15→22:39)
[2021-05-22] MEDS: COLLAGENASE OINT 30 GM TUBE TOP SCH (09:15)
--- NOTE | 2021-05-22 09:17 | Electrocardiogram Report ---
Test Reason : Blood Pressure : / mmHG Vent. Rate : 075 BPM Atrial Rate : 075 BPM P-R Int : 152 ms QRS Dur : 096 ms QT Int : 384 ms P-R-T Axes : 032 071 039 degrees QTc Int : 428 ms Normal sinus rhythm Low voltage QRS Nonspecific T wave abnormality Abnormal ECG When compared with ECG of 30-JAN-2021 21:49, Nonspecific T wave abnormality, worse in Inferior leads Nonspecific T wave abnormality now evident in Anterolateral leads Confirmed by Misha Estrada ([id number]) on 05/22/2021 9:17:08 AM Referred By: [facility] Confirmed By:Misha Estrada
[2021-05-22] MEDS: SACCHAROMYCES BOULARDII 250 MG CAP PO SCH ×2 (09:34→22:45)
--- NOTE | 2021-05-22 12:01 | Progress Note ---
Date of Service May 22, 2021 Assessment & Plan (1) Sacral wound: Plan: 75 year-old female who is quadriplegic secondary to elective spinal surgery with chronic sacral decubitus ulcer with osteomyelitis. Our services consulted for possible surgical debridement. No leukocytosis. CT scan showing no evidence of drainable abscess/fluid collection. Exam with fibrinous tissue at edges of wound but healthy granulation tissue underneath. No areas of necrosis. In re viewing outpatient wound clinic notes and images, wound actually looks improved compared to 05/13/21 outpatient wound image in which she had surgical debridement at that time. Plan: would recommend chemical debridement with Santyl at this time Should continue antibiotics as already established given her chronic osteomyelitis of sacral wound continue current medical management Dr. Carolina has seen and examined pt, recommended plan as above. 05/22/2021 12PM F/U sacral wound, stable, no surgical indication now, sign off today, please call with questions, thanks, Admission and Anticipated Discharge Date Admission Date: May 18, 2021 Subjective Pt feels better today, not as much pain. Reports she did not get her baclofen on time yesterday which is why she had keven many spasms and pain. She understands she needs foot debridement vs BKA and has not yet had a chance to talk toher daughter about it. She is leaning towards a debridement. Is moving her bowels, making urine in [place], eating. Feels a little hot today. Tele with NSR, rates 60-70s, PVCs F/U sacral wound, pt is stable, no fever, Physical Exam Constitutional: WD/WN, vitals as above Eyes: PERRL, conjunctivae normal, anicteric sclerae Neck: trachea midline, no thyromegaly Respiratory: normal respiratory effort, lungs clear to auscultation Cardiovascular: RRR, no murmur, no edema Gastrointestinal (Abdomen): normal bowel sounds, soft, nontender, no hepatosplenomegaly Skin: sacral wound, doing chemical debridement, the wound is better, no abscess, some granulation tissue, Neurologic: patellar DTR's 2+ bilat, sensation intact Psychiatric: A+Ox3, euthymic affect Results & Data ([facility]) Vital Signs (Past 12 Hours) Vital Signs Temp Pulse Pulse Resp BP Pulse Ox 05/22/21 11:30 37.1 C 69 19 134/76 94 05/22/21 07:55 36.5 C 79 19 150/88 H 95 05/22/21 07:15 69 05/22/21 03:14 81 18 165/83 H 96 Laboratory Results Abnormal lab results 05/21/21 05/21/21 05/21/21 Range/Units 12:04 12:29 16:42 POC Glucose 142 H 135 H 162 H (70-99) mg/dl 05/21/21 05/22/21 05/22/21 Range/Units 20:09 07:33 11:16 POC Glucose 182 H 155 H 165 H (70-99) mg/dl
--- NOTE | 2021-05-22 19:23 | Hospitalist Progress Note ---
Date of Service May 22, 2021 Assessment & Plan (1) Sepsis: Plan: Sepsis with organ dysfunction-acute renal failure and toxic encephalopathy Was hypotensive on admission but received 30 mils per KG crystalloid and now normotensive At present awake and communicative, not encephalopathic Source is right foot osteomyelitis and UTI although with indwelling [place] could well be colonization. ALso with large sacral wound that does not appear infected as per surgery -blood Cultures pending-no growth to date -Urine culture with mixed sergo -Continue broad spectrum with Meropenem and vancomycin given h/o ESBL E. coli and MRSA Ortho consult appreciated--> arterial doppler negative, foot/heel MRI with OM of heel, ulcer with gas, no abscess,+tendonitis, Achilles tendon not attached,diffuse myositis -Ortho plans debridement at a minimum, BKA at most-pt only wants debridement and is requesting consultation with high school library media specialist, Dr. Holly, that did her previous surgery-awaiting this consultation Consult Gen Surgery-recommends chemical debridement of sacral wound and not surgical (2) Osteomyelitis: Plan: Right foot calcaneal osteomyelitis with gasappears to be source of sepsis as above - needs debridement with Ortho vs BKA as above continue abx as above may need ID consult -Consult podiatry at patient and family request (3) UTI (urinary tract infection): Plan: Ruled out will ensure [place] has been exchanged (4) Acute on chronic renal failure: Plan: Acute component likely secondary to sepsis; underlying stage III CKDimprovedfollow (5) CAD (coronary artery disease): Plan: Non acute issuenoted resumption of Plavix; metoprolol held on account of low blood pressure but will restart now the blood pressures have improved (6) Diabetes type 2, controlled: Plan: Glucose fairly well controlled -pharmacy glycemic consult continue insulin (7) HTN (hypertension): Plan: Blood pressure lowmetoprolol held and BPs now improved-restart metoprolol as above (8) Hypothyroid: Plan: TSH 157. FT4 0.24 Uncontrolled hypothyroidismdoes not appear to be in myxedema coma; I did not give IV levothyroxine; I elected to obtain endocrinology input-recommend LT4 50 every other day for now and then 50mcg daily on 05/27 Has a h/o thyroidectomy (9) Quadriplegia: Plan: Quadriplegia Developed following elective cervical spine surgery Continue baclofen 10 mg p.o. at bedtime, 5 mg p.o. twice daily for spasms Patient with spastic contractions at baseline, limited use of left shoulder only (10) Anemia: Plan: - Macrocytic - B12, Folate normal - No signs of active bleeding hgb stable at 9.5 needs w/u for MDS as outpt (11) Sacral wound: Plan: Stage IV pressure ulcers, sacral wound Wound care consulted-recommended Surgery consult Surgery said Santyl and chemical debridement, no surgery Patient with history of pressure ulcers on ankles bilaterally, and sacral wound -Continue home Vit C, MVI -continue to offload pressure, air mattress (12) Adnexal cyst: Plan: 6 cm septated, stable from previous follow as outpt with [employer] Plan: DVT proph-Lovenox Dispo-continued stay, awaiting debridement surgery of right foot Admission and Anticipated Discharge Date Admission Date: May 18, 2021 Subjective Patient reports she had soup for dinner but could not eat it has not helped her to eat. I discussed with her nurse who reported that the patient ate all 3 of her meals today and was fed completely for every meal. Patient is requesting ice cream. Her daughter was on the phone with her and I discussed her care with her daughter. The daughter says they absolutely do not want to consider a BKA at this time and were shocked to hear this news. They were requesting that Dr. Holly her high school library media specialist that did her previous heel surgery be consulted. He is aware she is here and will be coming to see her today. She denies any other issues Telemetry with normal sinus rhythm, rates in the 60s to 70s Review of Systems Review of Systems: All systems reviewed & are unremarkable except as noted in HPI & below Physical Exam Constitutional: WD/WN, vitals as above Eyes: + anicteric sclerae Neck: trachea midline, no thyromegaly Respiratory: normal respiratory effort, lungs clear to auscultation Cardiovascular: RRR, no murmur, no edema Chest (Breasts): Chest: normal inspection of chest Gastrointestinal (Abdomen): normal bowel sounds, soft, nontender, no hepatosplenomegaly Musculoskeletal: Extremities: + extremities abnormal to inspection (Flexion contractures in the bilateral lower extremities), no cyanosis and no clubbing Skin: Dressings not removed on heel and sacrum Neurologic: + focal motor deficit (Weakness in all 4 extremities lower greater than upper extremities) and awake; + does not move all extremities and not confused Psychiatric: Orientation: alert, oriented x 3 and cooperative Affect: + flat affect Results & Data Results & Data ([facility]) Vital Signs (Past 12 Hours) Vital Signs Temp Pulse Pulse Resp BP Pulse Ox 05/22/21 15:38 37.4 C 69 18 130/74 95 05/22/21 15:34 67 05/22/21 11:30 37.1 C 69 19 134/76 94 05/22/21 07:55 36.5 C 79 19 150/88 H 95 Laboratory Results 05/22/21 05/22/21 05/22/21 Range/Units 16:29 11:16 07:33 POC Glucose 148 H 165 H 155 H (70-99) mg/dl 05/21/21 Range/Units 20:09 POC Glucose 182 H (70-99) mg/dl PG Care Time/CCT Total # of Minutes Spent Total Time Spent with Patient: Total time spent is greater than 50% in coordination of care (as documented) at patient's floor/unit and/or counseling patient: Coding Level of Care Code 34152 Subseq Hosp Care Lvl 2 Diagnoses Sepsis A41.9 Osteomyelitis M86.9 UTI (urinary tract infection) N39.0 Acute on chronic renal failure N17.9; N18.9 CAD (coronary artery disease) I25.10 Associated angina: without angina Coronary Disease-Associated Artery/Lesion type: [place] artery [place] vs. transplanted heart: [place] heart Diabetes type 2, controlled E11.9 Diabetes mellitus complication status: without complication Diabetes mellitus intermediate insulin use: unspecified intermediate insulin use status HTN (hypertension) I10 Hypertension type: unspecified Hypothyroid E03.9 Hypothyroidism type: unspecified Quadriplegia G82.50 Anemia D64.9 Anemia type: unspecified type Sacral wound S31.000A Adnexal cyst N94.9 (1) CAD (coronary artery disease) Associated angina: without angina Coronary Disease-Associated Artery/Lesion type: [place] artery [place] vs. transplanted heart: [place] heart Qualified Code(s): I25.10 - Atherosclerotic heart disease of [place] coronary artery without angina pectoris (2) Anemia Anemia type: unspecified type Qualified Code(s): D64.9 - Anemia, unspecified (3) Hypothyroid Hypothyroidism type: unspecified Qualified Code(s): E03.9 - Hypothyroidism, unspecified (4) Diabetes type 2, controlled Diabetes mellitus complication status: without complication Diabetes mellitus security attendant insulin use: unspecified intermediate insulin use status Qualified Code(s): E11.9 - Type 2 diabetes mellitus without complications (5) HTN (hypertension) Hypertension type: unspecified Qualified Code(s): I10 - Essential (primary) hypertension
[2021-05-22] MEDS ORDERED: PROTEIN PO SCH (21:00)
--- NOTE | 2021-05-22 22:00 | Surgery Consultation ---
Date of Consultation May 22, 2021 Assessment & Plan (1) Osteomyelitis: I examined the patient for an ulcer that has been resistant to healing despite numerous interventions. Patient requires removal of nonviable bone and soft tissue due to osteomyelitis of right calcaneus. I would recommend staged procedure with delayed closure. Post debridement Patient may benefit from negative pressure wound therapy followed by skin rotation plasty. Alternatively Patient post debridement may be treated with soleous muscle flap. This was discussed with Patient. Thank you for allowing me to participate in the care of this Patient. (2) Stage IV pressure ulcer of right heel: History of Present Illness Attending Physician: Smitha Anton MD History of Present Illness Patient is a type II diabetic, 75 year old female who is seen at bedside for a non healing right heel ulcer. Patient has history of previous right heel wound with calc OM treated with resection followed by rotation skin plasty and uneventful healing. Patient is residing in care facility and has developed pressure wound despite instruction to utilize off loading heel boot. Patient's daughter contacted our office due to concern over discussion of BKA> Allergies Allergy/AdvReac Type Severity Reaction Status Date / Time acesulfame Allergy Unknown Unknown Verified 05/18/21 16:31 aspartame Allergy Unknown Unknown Verified 05/18/21 16:31 [From Nutrasweet Aspartame] saccharin Allergy Unknown Unknown Verified 05/18/21 16:31 sucralose Allergy Unknown Unknown Verified 05/18/21 16:31 mold Allergy Unknown Verified 05/18/21 16:31 pollen extracts Allergy Unknown Verified 05/18/21 16:31 Home Medications Medication Instructions Recorded Confirmed Type acetaminophen 325 mg tablet 650 mg PO Q6 PRN 01/30/21 05/18/21 History (Tylenol) albuterol sulfate 90 mcg/actuation 2 puff INHALATION Q4 PRN 01/30/21 05/18/21 History aerosol inhaler (Proventil HFA) ascorbic acid (vitamin C) 500 mg 500 mg PO BID 01/30/21 05/18/21 History tablet (Vitamin C) baclofen 10 mg tablet 10 mg PO HS 01/30/21 05/18/21 History baclofen 5 mg tablet 5 mg PO BID 01/30/21 05/18/21 History bisacodyl 10 mg rectal suppository 10 mg NC UD PRN 01/30/21 05/18/21 History (Dulcolax (bisacodyl)) ezetimibe 10 mg tablet (Zetia) 10 mg PO DAILY 01/30/21 05/18/21 History gabapentin 100 mg capsule 100 mg PO TID 01/30/21 05/18/21 History insulin aspart U-100 100 unit/mL 0 sliding scale dose SUBCUT UD 01/30/21 05/18/21 History subcutaneous solution (Novolog U-100 Insulin aspart) insulin glargine 100 unit/mL 20 unit SUBCUT QPM 01/30/21 05/18/21 History subcutaneous solution (Lantus U-100 Insulin) magnesium oxide 400 mg PO DAILY 01/30/21 05/18/21 History metoprolol tartrate 50 mg tablet 50 mg PO Q12 01/30/21 05/18/21 History multivitamin 1 tab PO DAILY 01/30/21 05/18/21 History ondansetron HCl 4 mg tablet 4 mg PO Q6H PRN 01/30/21 05/18/21 History (Zofran) peg 400-propylene glycol 0.4 %-0.3 1 drp OPHTHALMIC (EYE) QPM 01/30/21 05/18/21 History % eye gel drops (Systane Gel) polyethylene glycol 3350 17 gram 17 g PO DAILY 01/30/21 05/18/21 History oral powder packet (Miralax) protein 1 ea PO TID #0 01/30/21 05/18/21 History fluconazole 100 mg tablet 200 mg PO DAILY 30 Days #60 tab 02/06/21 05/18/21 Rx Saccharomyces boulardii 250 mg 250 mg PO BID 04/17/21 05/18/21 History capsule (Florastor) collagenase clostridium histo. 250 1 applic TOPICAL DAILY 14 Days #90 04/17/21 05/18/21 Rx unit/gram topical ointment (Santyl) g bismuth subsalicylate 262 mg/15 mL 524 mg PO QID 04/26/21 05/18/21 History oral suspension (Pepto-Bismol) sodium phosphates 19 gram-7 118 ml NC DAILY PRN 04/26/21 05/18/21 History gram/197 mL enema (Fleet Enema Extra) benzonatate 200 mg capsule 200 mg PO TID 05/13/21 05/18/21 History fluticasone propionate 50 2 spray INTRANASAL DAILY 05/18/21 05/18/21 History mcg/actuation nasal spray,suspension Patient History Medical History (Updated 05/20/21 @ 23:51 by Smitha Anton MD) Adnexal cyst Adnexal tumor Anemia CAD (coronary artery disease) Maren infection Cardiomyopathy Chronic incomplete quadriplegia Depression Diabetes type 2, controlled Dysphagia History of DVT (deep vein thrombosis) 02/26/20 LLE History of mechanical ventilation History of [place] (myocardial infarction) 2004 History of renal cell cancer HTN (hypertension) Hyperlipemia Hypothyroid Insomnia Ischemic cardiomyopathy Major depressive disorder Mass of left thigh 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) MRSA (methicillin resistant staph aureus) culture positive Myelodysplasia (myelodysplastic syndrome) Neurogenic bowel Pneumonia Respiratory failure, post-operative Seasonal asthma Thrombocytopenia UTI (urinary tract infection) Surgical History H/O excision of lamina of cervical vertebra for decompression of spinal cord H/O percutaneous transluminal coronary angioplasty History of esophagogastroduodenoscopy (EGD) History of right nephrectomy History of thyroidectomy Hx of colonoscopy S/P cardiac catheterization S/P cervical spinal fusion S/P cholecystectomy Social History Smoking Status: Never smoker Hx Alcohol Use: No Hx Substance Use: No Preferred Language: Togolese Communication Ability: Effective Leaflet Or Newspaper Deliverer Required: No Beliefs That Will Affect Care: None marital status: / Current Living Situation: Jail Current Living Situation Comment: [facility] current occupational status: disabled Feels Safe at Home: Yes Safety Concerns: Feels Safe At This Time caffeine: Yes Physical Activity Frequency: Does not Exercise Review of Systems Review of Systems: All systems reviewed & are unremarkable except as noted in HPI & below Physical Exam Constitutional: WD/WN, vitals as above ENMT: external ear and nose normal, oropharynx normal Neck: trachea midline, no thyromegaly Gastrointestinal (Abdomen): normal bowel sounds, soft, nontender, no hepato splenomegaly Musculoskeletal: Extremities: + extremities abnormal to inspection (Flexion contractures in the bilateral lower extremities), no cyanosis and no clubbing Skin: Focused Exam: Wound location:rightplantarheel Wound base color and depth:full thickness wound Wound size (cm):3.6x1.8x0.2cm Odor:none Drainage:now Undermining:none Borders:healthy Neurologic: Decreased epicritic sensation , + focal motor deficit (Weakness in all 4 extremities lower greater than upper extremities) and awake; + does not move all extremities and not confused Psychiatric: A+Ox3, euthymic affect Results & Data ([place]) Vital Signs (Past 12 Hours) Vital Signs Temp Pulse Pulse Resp BP BP Pulse Ox 05/22/21 19:00 37.2 C 72 18 94/57 L 92 05/22/21 15:38 37.4 C 69 18 130/74 95 05/22/21 15:34 67 05/22/21 11:30 37.1 C 69 19 134/76 94 Diagnostic Findings MRI OF THE RIGHT ANKLE COMBO CLINICAL HISTORY: Calcaneal osteomyelitis. COMPARISON STUDY: CT scan of the right foot dated 05/19/2021. TECHNIQUE: MRI of the right ankle is performed utilizing various T1 and T2- weighted sequences in the axial, sagittal, and coronal planes. Contrast-enhanced sequences were acquired following the IV administration of 7.2 cc of Gadavist. The examination is significantly compromised by motion artifact. FINDINGS: Again seen is postoperative change from dorsal resection of the calcaneus. Marrow signal intensity is markedly heterogeneous. Again seen is a large ulceration overlying the dorsal and plantar aspect of the heel with surrounding soft tissue infiltration, subcutaneous gas, and fluid. No organized/drainable fluid collection is identified to indicate abscess. There is erosive change identified within the dorsal aspect of the calcaneus along the resection margin. This is seen along the dorsal aspect of the bone and the base of the bone. There is also erosive/destructive change along the superior aspect of the dorsal calcaneus. The findings are consistent with osteomyelitis. There is a large plantar heel spur. The Achilles tendon is thickened and tendonotic. This does not appear to attach to the calcaneus. The ankle mortise is maintained. No osteochondral defect is seen in the talar dome. There is a small joint effusion. The ankle tendons are not well evaluated due to motion artifact. There is tendinopathy of the tibialis posterior and peroneal tendons. No full- thickness rupture is identified. There is diffuse atrophy and myositis of the regional musculature. Degenerative changes seen throughout the midfoot. IMPRESSION: 1. Significantly motion compromised examination. 2. Postoperative change and findings of osteomyelitis involving the dorsal calcaneus as above. This was better assessed on the recent CT scan. 3. Large cutaneous ulceration overlying the heel with associated subcutaneous gas and cellulitis. 4. No organized/drainable fluid collection is identified. 5. The Achilles tendon does not appear to attach to the calcaneus. Dictated: 05/21/2021 11:13 AM Transcribed: 05/21/2021 12:43 PM Aggie [id number] [email or web address]
[2021-05-22] MEDS: ARTIFICIAL TEARS OP SCH (22:41)
[2021-05-22] MEDS: INSULIN GLARGINE SOLOSTAR 100 UNITS/ML 3 ML PEN SC SCH (22:43)
[2021-05-22] MEDS: ENOXAPARIN INJ 30 MG/0.3 ML SYR SQ SCH (22:45)
[2021-05-22] MEDS: METOPROLOL TARTRATE 25 MG TAB PO SCH (22:46)
[2021-05-23] MEDS: LEVOTHYROXINE SODIUM 50 MCG TABLET PO SCH (06:22)
[2021-05-23] MEDS: MEROPENEM 500 MG in SYRINGE 0 ML IV SCH ×3 (06:22→21:48)
[2021-05-23 08:34] LABS: BUN Creatinine Ratio 11.8 (10-20); Calcium 8.3 mg/dl (8.5-10.1); Est GFR (Non-African American) 43.2 ml/min; Potassium 4.2 mmol/L (3.5-5.1)
[2021-05-23 08:37] LABS: Basophils # (auto) 0.07 K/uL (0-0.2); Basophils % (auto) 0.7 %; Eosinophils # (auto) 0.36 K/uL (0-0.5); Eosinophils % (auto) 3.5 %; Hematocrit (blood only) 31.5 % (37-47); Hemoglobin 10.2 g/dL (12.0-16.0); Immature Granulocytes # (auto) 0.34 K/uL (0.00-0.02); Immature Granulocytes % (auto) 3.3 %; Lymphocytes # (auto) 2.11 K/uL (1.2-3.4); Lymphocytes % (auto) 20.7 %; Mean Corpuscular Hemoglobin 35.9 pg (25-34); Mean Corpuscular Hgb Conc 32.4 g/dL (32-36); Mean Corpuscular Volume 110.9 fL (80-100); Monocytes # (auto) 0.57 K/uL (0.11-0.59); Monocytes % (auto) 5.6 %; Neutrophils # (auto) 6.73 K/uL (1.4-6.5); Neutrophils % (auto) 66.2 %; Platelet Count 519 K/uL (130-400); RDW Standard Deviation 60.6 fL (36.4-46.3); Red Blood Count 2.84 M/uL (4.2-5.4); White Blood Count 10.18 K/uL (4.8-10.8)
[2021-05-23 08:37] LABS: Albumin Globulin Ratio 0.5 (0.9-2); Bilirubin,Total 0.2 mg/dl (0.2-1)
[2021-05-23] MEDS: ASCORBIC ACID 500 MG TAB PO SCH ×2 (09:10→21:59)
[2021-05-23] MEDS: CLOPIDOGREL BISULFATE 75 MG TAB PO SCH (09:12)
[2021-05-23] MEDS: BENZONATATE 100 MG CAPSULE PO SCH ×2 (09:12→13:33)
[2021-05-23] MEDS: BACLOFEN 10 MG TAB PO SCH ×3 (09:12→21:58)
[2021-05-23] MEDS: COLLAGENASE OINT 30 GM TUBE TOP SCH (09:13)
[2021-05-23] MEDS: EZETIMIBE 10 MG TABLET PO SCH (09:13)
[2021-05-23] MEDS: DOCUSATE SODIUM/SENNA 50/8.6MG TAB PO SCH (09:13)
[2021-05-23] MEDS: FLUCONAZOLE 100 MG TAB PO SCH (09:14)
[2021-05-23] MEDS: FLUTICASONE PROPIONATE NA SPR 16 GM BTL NAE SCH (09:14)
[2021-05-23] MEDS: GABAPENTIN 100 MG CAP PO SCH ×3 (09:14→21:59)
[2021-05-23] MEDS: MAGNESIUM OXIDE 400 MG TAB PO SCH (09:15)
[2021-05-23] MEDS: METOPROLOL TARTRATE 25 MG TAB PO SCH ×2 (09:15→21:56)
[2021-05-23] MEDS: MULTIVITAMIN TAB PO SCH (09:16)
[2021-05-23] MEDS: POLYETHYLENE (MIRALAX) 17 GM PACK PO SCH (09:16)
[2021-05-23] MEDS: POT PHOSPHATE MONOBASIC W/ SOD TAB PO SCH ×2 (09:16→12:22)
[2021-05-23] MEDS: INSULIN ASPART 100 UNITS/ML 3 ML PEN SC SCH ×4 (09:17→21:44)
[2021-05-23] MEDS: SACCHAROMYCES BOULARDII 250 MG CAP PO SCH ×2 (09:17→21:56)
[2021-05-23] MEDS: VANCOMYCIN HCL 1,000 MG in SODIUM CHLORIDE 0.9% 250 ML IV SCH (09:27)
[2021-05-23 10:56] LABS: Macrocytosis Present; Toxic Vacuolation 1+
--- NOTE | 2021-05-23 15:19 | Hospitalist Progress Note ---
Date of Service May 23, 2021 Assessment & Plan (1) Sepsis: Plan: Sepsis with organ dysfunction-acute renal failure and toxic encephalopathy Was hypotensive on admission but received 30 mils per KG crystalloid and now normotensive At present awake and communicative, not encephalopathic Source is right foot osteomyelitis and initially suspected UTI although with i ndwelling [place] could well be colonization. ALso with large sacral wound that does not appear infected as per surgery -blood Cultures pending-no growth to date -Urine culture with mixed sergo -Continue broad spectrum with Meropenem and vancomycin as well as ongoing treatment with p.o. Diflucan given h/o ESBL E. coli, MRSA, and Maren Ortho consult appreciated--> arterial doppler negative, foot/heel MRI with OM of heel, ulcer with gas, no abscess,+tendonitis, Achilles tendon not attached,diffuse myositis -Ortho plans debridement for tomorrow Her previous signal supervisor that did the first surgery is okay with deferring the surgery to the orthopedic foot and ankle specialist Consult Gen Surgery-recommends chemical debridement of sacral wound and not surgical (2) Osteomyelitis: Plan: Right foot calcaneal osteomyelitis with gasappears to be source of sepsis as above - needs debridement with Ortho as above tomorrow-make n.p.o. after midnight continue abx as above Will place ID consult for recommendations on antibiotics for after debridement- IV versus p.o. versus none at all? (3) UTI (urinary tract infection): Plan: Ruled out will ensure [place] has been exchanged (4) Acute on chronic renal failure: Plan: Acute component likely secondary to sepsis; underlying stage III CKDimprov edfollow (5) CAD (coronary artery disease): Plan: Non acute issue -Hold Plavix for surgery tomorrow -Continue metoprolol which was initially held on account of low blood pressure (6) Diabetes type 2, controlled: Plan: Glucose fairly well controlled -pharmacy glycemic consult continue insulin (7) HTN (hypertension): Plan: Blood pressure low upon admissionmetoprolol held and BPs now improved-restarted metoprolol as above (8) Hypothyroid: Plan: TSH 157. FT4 0.24 Uncontrolled hypothyroidismdoes not appear to be in myxedema coma Has a h/o thyroidectomy and levothyroxine is no longer on her home medication list at previous dose of 125 mcg daily-question if she has been receiving this medication since last hospitalization -Started back on levothyroxine 50 mcg every other day for several days and then increased to 50 mcg daily on 05/22 Plan to increase slowly back to her usual home dose of 125 mcg daily Follow TSH in 4 to 6 weeks (9) Quadriplegia: Plan: Quadriplegia Developed following elective cervical spine surgery in 09/2019 Continue baclofen 10 mg p.o. at bedtime, 5 mg p.o. twice daily for spasms Patient with spastic contractions at baseline, limited use of left shoulder only (10) Anemia: Plan: - Macrocytic - B12, Folate normal - No signs of active bleeding hgb stable at 10.2 With history of MDS noted in previous records (11) Sacral wound: Plan: Stage IV pressure ulcers, sacral wound Wound care consulted-recommended Surgery consult Surgery said Santyl and chemical debridement, no surgery Patient with history of pressure ulcers on ankles bilaterally, and sacral wound -Continue home Vit C, MVI -continue to offload pressure, air mattress (12) Adnexal cyst: Plan: 6 cm septated, stable from previous and this is documented in previous records and has been discussed with patient follow as outpt with [employer] Plan: DVT proph-Lovenox Dispo-continued stay, awaiting debridement surgery of right foot tomorrow Admission and Anticipated Discharge Date Admission Date: May 18, 2021 Subjective Patient denies pain anywhere and is doing well. She reports that people are feeding her today. She denies chest pain or shortness of breath. We discussed that she will have a debridement of her heel with Dr. Maher I discussed her care with both Dr. Holly and Dr. Maher today. I asked patient why she takes Tessalon Perles and she has no idea from talking-I will discontinue these Telemetry with normal sinus rhythm with rates in the 60s to 70s Review of Systems Review of Systems: All systems reviewed & are unremarkable except as noted in HPI & below Physical Exam Constitutional: WD/WN, vitals as above Eyes: + anicteric sclerae Neck: trachea midline, no thyromegaly Respiratory: normal respiratory effort, lungs clear to auscultation Cardiovascular: RRR, no murmur, no edema Chest (Breasts): Chest: normal inspection of chest Gastrointestinal (Abdomen): normal bowel sounds, soft, nontender, no hepatosplenomegaly Musculoskeletal: Extremities: + extremities abnormal to inspection (Flexion contractures in the bilateral lower extremities), no cyanosis and no clubbing Skin: no rashes, warm and dry + lesion (sacral decub assessed pictures,did not remove dressing) and + ulcer (right heel large black eschar with purulent drainage) Neurologic: + focal motor deficit (Weakness in all 4 extremities lower greater than upper extremities) and awake; + does not move all extremities and not confused Psychiatric: Orientation: alert, oriented x 3 and cooperative Affect: + flat affect Results & Data Results & Data ([facility]) Vital Signs (Past 12 Hours) Vital Signs Temp Pulse Pulse Resp BP Pulse Ox 05/23/21 15:00 36.3 C L 63 19 105/65 91 05/23/21 11:38 37.2 C 64 19 123/68 91 05/23/21 07:50 58 L 05/23/21 07:36 37.2 C 61 18 118/64 92 Laboratory Results 05/23/21 08:23 05/23/21 07:33 PG Care Time/CCT Total # of Minutes Spent Total Time Spent with Patient: Total time spent is greater than 50% in coordination of care (as documented) at patient's floor/unit and/or counseling patient: Coding Level of Care Code 38182 Subseq Hosp Care Lvl 3 Diagnoses Sepsis A41.9 Osteomyelitis M86.9 UTI (urinary tract infection) N39.0 Acute on chronic renal failure N17.9; N18.9 CAD (coronary artery disease) I25.10 Associated angina: without angina Coronary Disease-Associated Artery/Lesion type: [place] artery [place] vs. transplanted heart: [place] heart Diabetes type 2, controlled E11.9 Diabetes mellitus complication status: without complication Diabetes mellitus shelter insulin use: unspecified shelter insulin use status HTN (hypertension) I10 Hypertension type: unspecified Hypothyroid E03.9 Hypothyroidism type: unspecified Quadriplegia G82.50 Anemia D64.9 Anemia type: unspecified type Sacral wound S31.000A Adnexal cyst N94.9 (1) CAD (coronary artery disease) Associated angina: without angina Coronary Disease-Associated Artery/Lesion type: [place] artery [place] vs. transplanted heart: [place] heart Qualified Code(s): I25.10 - Atherosclerotic heart disease of [place] coronary artery without angina pectoris (2) Anemia Anemia type: unspecified type Qualified Code(s): D64.9 - Anemia, unspecified (3) Hypothyroid Hypothyroidism type: unspecified Qualified Code(s): E03.9 - Hypothyroidism, unspecified (4) Diabetes type 2, controlled Diabetes mellitus complication status: without complication Diabetes mellitus shelter insulin use: unspecified shelter insulin use status Qualified Code(s): E11.9 - Type 2 diabetes mellitus without complications (5) HTN (hypertension) Hypertension type: unspecified Qualified Code(s): I10 - Essential (primary) hypertension
--- NOTE | 2021-05-23 19:26 | Anesthesiology Consultation ---
Date of Service May 23, 2021 Assessment & Plan Chart Review Chart Review: Acceptable Risk for Surgery Consults Requested none History Surgery Operation Date: 05/24/21 12:55 Proposed Procedures p Incision and Drainage Right Heel Ulcer - Harry Maher DO Height/Weight Height: 5 ft 2 in Weight: 75 kg Allergies Allergy/AdvReac Type Severity Reaction Status Date / Time acesulfame Allergy Unknown Unknown Verified 05/18/21 16:31 aspartame Allergy Unknown Unknown Verified 05/18/21 16:31 [From Nutrasweet Aspartame] saccharin Allergy Unknown Unknown Verified 05/18/21 16:31 sucralose Allergy Unknown Unknown Verified 05/18/21 16:31 mold Allergy Unknown Verified 05/18/21 16:31 pollen extracts Allergy Unknown Verified 05/18/21 16:31 Medications Home Medications Medication Instructions Recorded Confirmed Last Taken acetaminophen 325 mg tablet 650 mg PO Q6 PRN 01/30/21 05/18/21 05/15/21 (Tylenol) albuterol sulfate 90 mcg/actuation 2 puff INHALATION Q4 PRN 01/30/21 05/18/21 05/18/21 aerosol inhaler (Proventil HFA) ascorbic acid (vitamin C) 500 mg 500 mg PO BID 01/30/21 05/18/21 05/18/21 tablet (Vitamin C) baclofen 10 mg tablet 10 mg PO HS 01/30/21 05/18/21 05/17/21 baclofen 5 mg tablet 5 mg PO BID 01/30/21 05/18/21 05/18/21 bisacodyl 10 mg rectal suppository 10 mg MD UD PRN 01/30/21 05/18/21 05/18/21 (Dulcolax (bisacodyl)) ezetimibe 10 mg tablet (Zetia) 10 mg PO DAILY 01/30/21 05/18/21 05/18/21 gabapentin 100 mg capsule 100 mg PO TID 01/30/21 05/18/21 05/18/21 insulin aspart U-100 100 unit/mL 0 sliding scale dose SUBCUT UD 01/30/21 05/18/21 05/18/21 subcutaneous solution (Novolog U-100 Insulin aspart) insulin glargine 100 unit/mL 20 unit SUBCUT QPM 01/30/21 05/18/21 05/18/21 subcutaneous solution (Lantus U-100 Insulin) magnesium oxide 400 mg PO DAILY 01/30/21 05/18/21 05/18/21 metoprolol tartrate 50 mg tablet 50 mg PO Q12 01/30/21 05/18/21 05/18/21 multivitamin 1 tab PO DAILY 01/30/21 05/18/21 05/18/21 ondansetron HCl 4 mg tablet 4 mg PO Q6H PRN 01/30/21 05/18/21 05/18/21 (Zofran) peg 400-propylene glycol 0.4 %-0.3 1 drp OPHTHALMIC (EYE) QPM 01/30/21 05/18/21 05/18/21 % eye gel drops (Systane Gel) polyethylene glycol 3350 17 gram 17 g PO DAILY 01/30/21 05/18/21 05/18/21 oral powder packet (Miralax) protein 1 ea PO TID #0 01/30/21 05/18/21 05/18/21 fluconazole 100 mg tablet 200 mg PO DAILY 30 Days #60 tab 02/06/21 05/18/21 05/18/21 Saccharomyces boulardii 250 mg 250 mg PO BID 04/17/21 05/18/21 05/17/21 capsule (Florastor) collagenase clostridium histo. 250 1 applic TOPICAL DAILY 14 Days #90 04/17/21 05/18/21 05/18/21 unit/gram topical ointment (Santyl) g bismuth subsalicylate 262 mg/15 mL 524 mg PO QID 04/26/21 05/18/21 Unknown oral suspension (Pepto-Bismol) sodium phosphates 19 gram-7 118 ml MD DAILY PRN 04/26/21 05/18/21 05/18/21 gram/197 mL enema (Fleet Enema Extra) benzonatate 200 mg capsule 200 mg PO TID 05/13/21 05/18/21 05/17/21 fluticasone propionate 50 2 spray INTRANASAL DAILY 05/18/21 05/18/21 05/13/21 mcg/actuation nasal spray,suspension Active Medications Generic Name Dose Route Start Last Admin Trade Name Freq PRN Reason Stop Dose Admin Acetaminophen 650 mg 05/18/21 21:47 05/21/21 05:53 Acetaminophen 325 Mg Tab PO 06/17/21 21:46 650 mg Q4H PRN Administration Pain or Fever Artificial Tears 1 drops 05/20/21 21:00 05/22/21 22:41 Artificial Tears OP 06/19/21 20:59 1 drops QPM DEREK Administration Ascorbic Acid 500 mg 05/20/21 21:00 05/23/21 09:10 Ascorbic Acid 500 Mg Tab PO 06/19/21 20:59 500 mg BID DEREK Administration Baclofen 10 mg 05/18/21 21:47 05/22/21 22:44 Baclofen 10 Mg Tab PO 06/17/21 21:46 10 mg HS DEREK Administration Baclofen 5 mg 05/19/21 09:00 05/23/21 13:32 Baclofen 10 Mg Tab PO 06/18/21 08:59 5 mg BID@0900,1400 DEREK Administration Benzocaine 1 appln 05/20/21 23:07 05/20/21 23:43 Benzocaine 20% (Orajel) 11.9 Gm Tube MT 06/19/21 23:06 1 appln BID PRN Administration dry mouth Clopidogrel Bisulfate 75 mg 05/19/21 09:00 05/23/21 09:12 Clopidogrel Bisulfate 75 Mg Tab PO 06/18/21 08:59 75 mg QAM DEREK Administration Collagenase 1 appln 05/20/21 14:45 05/23/21 09:13 Collagenase Oint 30 Gm Tube TOP 06/19/21 14:44 1 appln DAILY DEREK Administration Ezetimibe 10 mg 05/23/21 09:00 05/23/21 09:13 Ezetimibe 10 Mg Tablet PO 06/22/21 08:59 10 mg DAILY DEREK Administration Enoxaparin Sodium 30 mg 05/18/21 22:00 05/22/21 22:45 Enoxaparin Inj 30 Mg/0.3 Ml Syr SQ 06/17/21 21:59 30 mg Q24H DEREK Administration Fluconazole 200 mg 05/23/21 09:00 05/23/21 09:14 Fluconazole 100 Mg Tab PO 07/04/21 08:59 200 mg DAILY DEREK Administration Fluticasone Propionate 2 sprays 05/19/21 09:00 05/23/21 09:14 Fluticasone Propionate Na Spr 16 Gm Btl STEPHANY 06/18/21 08:59 2 sprays DAILY DEREK Administration Gabapentin 100 mg 05/18/21 21:47 05/23/21 13:32 Gabapentin 100 Mg Cap PO 06/17/21 21:46 100 mg TID DEREK Administration Meropenem 500 mg/ Syringe 10 mls @ 2 mls/min 05/20/21 13:00 05/23/21 13:32 IV 06/30/21 16:59 2 mls/min Q8H DEREK Administration Protocol Vancomycin HCl 1,000 mg/ 270 mls @ 200 mls/hr 05/21/21 10:00 05/23/21 11:51 Sodium Chloride IV 07/02/21 09:59 Infused Q24H DEREK Infusion Protocol Insulin Aspart 0 units 05/20/21 16:30 05/23/21 17:41 Insulin Aspart 100 Units/Ml 3 Ml Pen SC 06/18/21 17:59 6 units ACHS DEREK Administration Insulin Glargine 0 units 05/20/21 21:00 05/22/21 22:43 Insulin Glargine Solostar 100 Units/Ml 3 Ml Pen SC 06/17/21 21:59 20 units HS DEREK Administration Protocol Levothyroxine Sodium 50 mcg 05/23/21 06:30 05/23/21 06:22 Levothyroxine Sodium 50 Mcg Tablet PO 06/22/21 06:29 50 mcg DAILYBB DEREK Administration Magnesium Oxide 400 mg 05/20/21 14:45 05/23/21 09:15 Magnesium Oxide 400 Mg Tab PO 06/19/21 14:44 400 mg DAILY DEREK Administration Metoprolol Tartrate 25 mg 05/22/21 21:00 05/23/21 09:15 Metoprolol Tartrate 25 Mg Tab PO 06/21/21 20:59 25 mg BID DEREK Administration Multivitamins 1 tab 05/21/21 09:00 05/23/21 09:16 Multivitamin Tab PO 06/20/21 08:59 1 tab DAILY DEREK Administration Polyethylene Glycol 17 gm 05/20/21 14:45 05/23/21 09:16 Polyethylene (Miralax) 17 Gm Pack PO 06/19/21 14:44 17 gm DAILY DEREK Administration Saccharomyces Boulardii 250 mg 05/18/21 21:47 05/23/21 09:17 Saccharomyces Boulardii 250 Mg Cap PO 06/17/21 21:46 250 mg BID DEREK Administration Senna/Docusate Sodium 1 tab 05/20/21 14:45 05/23/21 09:13 Docusate Sodium/Senna 50/8.6mg Tab PO 06/19/21 14:44 1 tab QAM DEREK Administration Past Medical History Medical History (Updated 05/20/21 @ 23:51 by Smitha Anton MD) Adnexal cyst Adnexal tumor Anemia CAD (coronary artery disease) Maren infection Cardiomyopathy Chronic incomplete quadriplegia Depression Diabetes type 2, controlled Dysphagia History of DVT (deep vein thrombosis) 02/26/20 LLE History of mechanical ventilation History of [place] (myocardial infarction) 2004 History of renal cell cancer HTN (hypertension) Hyperlipemia Hypothyroid Insomnia Ischemic cardiomyopathy Major depressive disorder Mass of left thigh 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) MRSA (methicillin resistant staph aureus) culture positive Myelodysplasia (myelodysplastic syndrome) Neurogenic bowel Pneumonia Respiratory failure, post-operative Seasonal asthma Thrombocytopenia UTI (urinary tract infection) Past Surgical History Surgical History H/O excision of lamina of cervical vertebra for decompression of spinal cord H/O percutaneous transluminal coronary angioplasty History of esophagogastroduodenoscopy (EGD) History of right nephrectomy History of thyroidectomy Hx of colonoscopy S/P cardiac catheterization S/P cervical spinal fusion S/P cholecystectomy Social History Smoking Status: Never smoker Hx Alcohol Use: No Hx Substance Use: No Physical Exam Vital Signs Last Vital Signs Temp 36.3 C L 05/23/21 15:00 Pulse 61 05/23/21 15:41 Resp 19 05/23/21 15:00 BP 105/65 05/23/21 15:00 Pulse Ox 91 05/23/21 15:00 Testing Laboratory Results 05/23/21 08:23 05/23/21 07:33 PT 10.4 Seconds (9.0-12.0) 05/18/21 16:05 INR 1.0 (0.9-1.1) 05/18/21 16:05 APTT 24.7 Seconds (21.0-31.0) 05/18/21 16:05 Urine Color Dark Yellow 05/18/21 17:03 Urine Appearance Cloudy (Clear) A 05/18/21 17:03 Urine pH 5.0 (4.5-7.5) 05/18/21 17:03 Ur Specific [place] 1.028 (1.000-1.030) 05/18/21 17:03 Urine Protein 2+ (Negative) H 05/18/21 17:03 Urine Glucose (UA) Negative (Negative) 05/18/21 17:03 Urine Ketones Trace (Negative) H 05/18/21 17:03 Urine Nitrite Positive (Negative) A 05/18/21 17:03 Ur Leukocyte Esterase 2+ (Negative) H 05/18/21 17:03 Urine WBC (Auto) >30 /hpf (0-5) H 05/18/21 17:03 Urine RBC (Auto) 0-4 /hpf (0-4) 05/18/21 17:03 U Hyaline Cast (Auto) 1-5 /lpf (0-5) 05/18/21 17:03 U Epithel Cells (Auto) 0-5 /lpf (0-5) 05/18/21 17:03 Urine Bacteria (Auto) 4+ (Negative) H 05/18/21 17:03 05/18/21 16:05 Aerobic Blood Culture - Preliminary Blood No growth in Aerobic bottle after 48 hours. Anaerobic Blood Culture - Preliminary No growth in Anaerobic bottle after 48 hours. 05/18/21 16:00 Aerobic Blood Culture - Preliminary Blood No growth in Aerobic bottle after 48 hours. Anaerobic Blood Culture - Preliminary No growth in Anaerobic bottle after 48 hours. 05/18/21 17:03 Urine Culture - Final Urine,Straight Cath More than three types of organisms present, all high counts. Repeat collection recommended. No further identifications or sensitivities to follow. 05/23/21 05/23/21 05/23/21 17:08 11:08 07:24 POC Glucose 199 H 141 H 118 H
[2021-05-23] MEDS: INSULIN GLARGINE SOLOSTAR 100 UNITS/ML 3 ML PEN SC SCH (21:45)
[2021-05-23] MEDS: ARTIFICIAL TEARS OP SCH (21:48)
[2021-05-23] MEDS: ENOXAPARIN INJ 30 MG/0.3 ML SYR SQ SCH (21:55)
[2021-05-24] MEDS: LEVOTHYROXINE SODIUM 50 MCG TABLET PO SCH (05:47)
[2021-05-24] MEDS: MEROPENEM 500 MG in SYRINGE 0 ML IV SCH ×3 (05:47→21:56)
[2021-05-24 06:34] LABS: Basophils # (auto) 0.07 K/uL (0-0.2); Basophils % (auto) 0.6 %; Eosinophils # (auto) 0.54 K/uL (0-0.5); Eosinophils % (auto) 4.4 %; Hematocrit (blood only) 32.2 % (37-47); Hemoglobin 10.4 g/dL (12.0-16.0); Immature Granulocytes # (auto) 0.35 K/uL (0.00-0.02); Immature Granulocytes % (auto) 2.9 %; Lymphocytes # (auto) 2.31 K/uL (1.2-3.4); Lymphocytes % (auto) 18.9 %; Mean Corpuscular Hemoglobin 35.5 pg (25-34); Mean Corpuscular Hgb Conc 32.3 g/dL (32-36); Mean Corpuscular Volume 109.9 fL (80-100); Mean Platelet Volume 9.8 fL (7.4-10.4); Monocytes # (auto) 0.68 K/uL (0.11-0.59); Monocytes % (auto) 5.6 %; Neutrophils # (auto) 8.27 K/uL (1.4-6.5); Neutrophils % (auto) 67.6 %; Platelet Count 509 K/uL (130-400); RDW Coefficient of Variation 15.3 % (11.5-14.5); RDW Standard Deviation 60.1 fL (36.4-46.3); Red Blood Count 2.93 M/uL (4.2-5.4); White Blood Count 12.22 K/uL (4.8-10.8)
[2021-05-24 07:09] LABS: Alanine Aminotransferase 26 U/L (12-78); Albumin Level 2.2 gm/dl (3.4-5.0); Aspartate Aminotransferase 29 U/L (15-37); BUN Creatinine Ratio 14.4 (10-20); Bilirubin Direct < 0.1 mg/dl (0-0.2); Blood Urea Nitrogen 22 mg/dl (7-18); Calcium 8.1 mg/dl (8.5-10.1); Carbon Dioxide 28 mmol/L (21-32); Chloride 106 mmol/L (98-107); Creatinine Clr Calc Pharmacy 31.3 ml/min; Est GFR (African American) 39.4 ml/min; Glucose 138 mg/dl (70-99); Sodium 139 mmol/L (136-145)
[2021-05-24 07:12] LABS: Alkaline Phosphatase 66 U/L (45-117); Bilirubin,Total 0.3 mg/dl (0.2-1); Total Protein 6.3 gm/dl (6.4-8.2)
[2021-05-24] MEDS: BACLOFEN 10 MG TAB PO SCH ×3 (08:24→21:32)
[2021-05-24] MEDS: DOCUSATE SODIUM/SENNA 50/8.6MG TAB PO SCH (08:25)
[2021-05-24] MEDS: EZETIMIBE 10 MG TABLET PO SCH (08:25)
[2021-05-24] MEDS: MAGNESIUM OXIDE 400 MG TAB PO SCH (08:25)
[2021-05-24] MEDS: MULTIVITAMIN TAB PO SCH (08:25)
[2021-05-24] MEDS: SACCHAROMYCES BOULARDII 250 MG CAP PO SCH ×2 (08:25→21:32)
[2021-05-24] MEDS: GABAPENTIN 100 MG CAP PO SCH ×3 (08:25→21:32)
[2021-05-24] MEDS: METOPROLOL TARTRATE 25 MG TAB PO SCH ×2 (08:26→21:32)
[2021-05-24] MEDS: ASCORBIC ACID 500 MG TAB PO SCH ×2 (08:28→21:31)
[2021-05-24] MEDS: FLUCONAZOLE 100 MG TAB PO SCH (08:28)
[2021-05-24] MEDS: POLYETHYLENE (MIRALAX) 17 GM PACK PO SCH (08:28)
[2021-05-24] MEDS: FLUTICASONE PROPIONATE NA SPR 16 GM BTL NAE SCH (08:30)
[2021-05-24] MEDS: COLLAGENASE OINT 30 GM TUBE TOP SCH (08:30)
[2021-05-24] MEDS: INSULIN ASPART 100 UNITS/ML 3 ML PEN SC SCH ×4 (08:43→21:47)
[2021-05-24] MEDS ORDERED: SODIUM CHLORIDE 0.9% 1000ML 1,000 ML IV SCH (09:00)
[2021-05-24] MEDS ORDERED: VANCOMYCIN TROUGH ONE (09:30)
[2021-05-24] MEDS ORDERED: MIDAZOLAM HCL 1 MG/ML 2ML VIAL ONE (10:01)
[2021-05-24] MEDS ORDERED: fentaNYL citrate 100 MCG/2 ML VIAL ONE (10:01)
[2021-05-24] MEDS ORDERED: LIDOCAINE 2% 2 ML VIAL/AMP(20MG/ML) INFIL ONE (10:01)
[2021-05-24] MEDS ORDERED: PROPOFOL IV EMULSION 10 MG/ML 20 ML VIAL IV ONE (10:01)
[2021-05-24] MEDS: VANCOMYCIN HCL 1,000 MG in SODIUM CHLORIDE 0.9% 250 ML IV SCH (10:24)
[2021-05-24] MEDS ORDERED: BUPIVACAINE 0.5 % 5 MG/1 ML MPF 30ML VIAL ONE (10:28)
[2021-05-24] MEDS ORDERED: GENTAMICIN SULFATE 40 MG/ML 2 ML VIAL ONE (10:29)
[2021-05-24] MEDS ORDERED: VANCOMYCIN HCL 1000MG/20ML VIAL ONE (10:30)
--- NOTE | 2021-05-24 10:49 | Pharmacy Report ---
Pharmacy Vanc AUC Short Note - Date of Service May 24, 2021 - Assessment & Plan Assessment 75 year old F receiving vancomycin, meropenem, and fluconazole for treatment of right foot osteomyelitis. Cultures have been negative so far. I&D scheduled for today. SCr increase noted today (1.23 -> 1.5 mg/dL). Day # 7 of antimicrobial therapy. Plan Vancomycin * AUC/VILLA is the preferred PK/PD target for vancomycin * AUC guided dosing is effective and associated with decreased risk of nephrotoxicity compared to traditional trough targets * Trough level of 20.7 mcg/mL is supratherapeutic and likely achieving AUC/VILLA in excess of 600 mg/L.hr * Change dose to 750 mg IV every 24 hours, which is predicted to achieve target AUC/VILLA of 400-600 mg/L.hr and may be associated with a 13 % risk of nephrotoxicity * Will continue to follow renal function and order follow-up trough as indicated Meropenem * 500 mg IV q8h remains appropriate based on eCrCl of 31 mL/min Fluconazole * target dose would be 400 mg PO daily (give ~50% of dose for CrCl < 50 mL/min) * 200 mg PO daily appropriate based on eCrCl of 31 mL/min Pharmacy will continue to follow and will adjust dose/frequency as necessary. Thank you.
[2021-05-24] MEDS ORDERED: ATROPINE SULFATE 0.1 MG/ML 10ML SYR IV PRN (10:51)
[2021-05-24] MEDS ORDERED: ONDANSETRON INJ 2 MG/ML 2 ML VIAL IV PRN ×2 (10:51→14:43)
[2021-05-24] MEDS ORDERED: ePHEDrine sulfate 50 MG/ML AMP IV PRN (10:51)
[2021-05-24] MEDS ORDERED: fentaNYL citrate 100 MCG/2 ML VIAL IV PRN (10:51)
--- NOTE | 2021-05-24 11:49 | History & Physical Bridge Note ---
Date of Service May 24, 2021 History & Physical Bridge Note I have examined the patient, reviewed the History & Physical and in the interval since the performance of the History & Physical I have noted the following changes of clinical significance: no changes noted
[2021-05-24] MEDS ORDERED: DEXAMETHASONE SOD INJ 4 MG/ML VIAL ONE (12:11)
[2021-05-24] MEDS ORDERED: ONDANSETRON INJ 2 MG/ML 2 ML VIAL ONE (12:11)
--- NOTE | 2021-05-24 13:53 | Post Operative Brief Note ---
Immediate Post Op Note v1 Date of Surgery May 24, 2021 Pre & Post Diagnosis Operation Date: 05/24/21 12:55 Pre-Op Diagnosis: Sepsis, osteomyelitis right calcaneus, abscess right heel, neuropathic ulcer 5.5 cm x 5 cm x 1.0 cm Post-Op Diagnosis: Sepsis, osteomyelitis right calcaneus, abscess right heel, neuropathic ulcer 5.5 cm x 5 cm x 1.0 cm, septic Achilles tendonitis I identified the patient and participated in the time-out.: Yes Procedure Operation Date: 05/24/21 12:55 Actual Procedures p Irrigation and Debridement of Right Heel Ulcer, evacuation right heel abscess, irrigation and excisional debridement 5.5cm x 5cm x 1cm neuropathic ulcer, Partial Calcanectomy, Application of antibiotic Stimulan Beads, Debridement of septic Achilles Tendon, Excisional Debridement of Skin, subcutaneous fat, Periosteum and Fascia right heel (Right) - Harry Maher DO Surgeon Harry Maher DO Job Change Crew Member None Estimated Blood Loss 3 Findings Consistent with Post-Op Diagnosis Specimens Aerobic anaerobic Gram stain deep right heel periosteum and bone Bone for pathologic assessment right calcaneus Anesthesia Type MAC Complications none Disposition Accompanied Patient To Recovery: No Overlapping Procedure I was present for: the critical portions of procedure. I was immediately available: during the entire case.
--- NOTE | 2021-05-24 13:56 | Pharmacy Report ---
Pharmacy Glycemic Short Note 2 - Date of Service May 24, 2021 - Glycemic Short BSG Results (Last 24 hours): 05/23/21 05/23/21 05/24/21 17:08 20:24 06:23 Glucose 138 H POC Glucose 199 H 204 H 05/24/21 08:05 Glucose POC Glucose 150 H OUTPATIENT ANTIDIABETIC REGIMEN: * Lantus 20 units SQ PM * NovoLog with meals * A1c = 6.9% on 04/11/21 ASSESSMENT: 05/24 * BSGs trended up throughout the day yesterday, 118, 141, 199, and 204 mg/dL * NPO today for I&D - will scale Lantus this evening to allow for decreased dose in case patient remains NPO * Will tighten carb ratio given trend noted above * Continues on broad spectrum antibiotics 05/21 * BSGs well controlled yesterday ranging 92-179 mg/dL * Received 26 units of insulin (20 of which was basal) * Fasting BSG of 111 mg/dL this morning - will continue current Lantus dose * Continues on IV vancomycin/meropenem 05/19 * 75yo T2DM female with excellent outpatient control per recent A1c * Pt is maintained on SQ basal bolus insulin regimen as an outpatient - will continue outpatient basal insulin and use weight based CF/CR for NovoLog since CHO intake inhouse can be different/less than outpatient. * Titrate based on BSG trends to maintain BSGs 110-140 mg/dl range. PLAN FOR INPATIENT GLYCEMIC CONTROL: * Basal insulin * Lantus 10-20 units SC HS (see EHR for details) * Bolus insulin - tighten carb ratio * NovoLog per scale ACHS or Q6hrs while NPO * Goal Range: Low 100 mg/dL - High 140 mg/dL * Correction Factor: 20 mg/dL/unit * Nutritional / Prandial insulin per carb ratio of 1 unit per 6 grams CHO consumed PLAN FOR DISCHARGE: * A1c is in goal range - no changes needed to outpatient insulin regimen at [place].
--- NOTE | 2021-05-24 14:41 | Anesthesiology Progress Note ---
Date of Service May 24, 2021 Anesthesia Post Procedure Vital Signs Vital Signs: Temp Pulse Pulse Pulse Resp BP BP 05/24/21 14:30 56 L 16 138/74 05/24/21 14:20 97.9 F 57 L 18 118/49 L 05/24/21 14:10 58 L 16 105/45 L 05/24/21 14:00 57 L 14 114/50 L 05/24/21 13:53 98.8 F 60 15 123/51 L 05/24/21 10:21 97.7 F 59 L 18 127/68 05/24/21 09:20 98.1 F 62 20 164/69 H 05/24/21 08:33 98.6 F 65 16 152/77 H 05/24/21 07:42 69 05/24/21 04:00 99.0 F 72 18 157/80 H 05/24/21 01:15 69 05/23/21 23:00 99.1 F 72 18 127/72 05/23/21 19:00 98.6 F 70 18 119/66 05/23/21 15:41 61 05/23/21 15:00 97.3 F L 63 19 105/65 Pulse Ox 05/24/21 14:30 94 05/24/21 14:20 97 05/24/21 14:10 94 05/24/21 14:00 98 05/24/21 13:53 99 05/24/21 10:21 92 05/24/21 09:20 97 05/24/21 08:33 94 05/24/21 07:42 05/24/21 04:00 92 05/24/21 01:15 05/23/21 23:00 92 05/23/21 19:00 91 05/23/21 15:41 05/23/21 15:00 91 Pain Intensity Generalized: Pain Intensity: 4 Transfer of Care Handoff Completed per policy Notes Mental Status: alert / awake / arousable and participated in evaluation Patient Amnestic to Procedure: Yes Nausea / Vomiting: adequately controlled Pain: adequately controlled Airway Patency, RR, SpO2: stable & adequate BP & HR: stable & adequate Hydration State: stable & adequate Anesthetic Complications: no major complications apparent and Pt Satisfied with anesthetic care
[2021-05-24] MEDS ORDERED: traMADol HCL 50 MG TABLET PO PRN (14:43)
[2021-05-24] MEDS ORDERED: NALOXONE HCL 0.4 MG/1 ML VIAL/CARP IV PRN (14:43)
[2021-05-24] MEDS ORDERED: MAGNESIUM HYDROXIDE SUSP 30 ML UDC PO PRN (14:43)
[2021-05-24] MEDS ORDERED: bisacodyL 10 MG SUPP PR PRN (14:43)
[2021-05-24] MEDS ORDERED: METOCLOPRAMIDE HCL INJ 5 MG/ML 2 ML VIAL IV PRN (14:43)
[2021-05-24] MEDS: VANCOMYCIN HCL 750 MG in SODIUM CHLORIDE 0.9% 250 ML IV SCH (15:11)
[2021-05-24] MEDS: SODIUM CHLORIDE 0.9% 1000ML 1,000 ML IV SCH ×2 (15:12→23:44)
--- NOTE | 2021-05-24 19:02 | Operative Report (OR) ---
DATE OF PROCEDURE: 05/24/2021. PREOPERATIVE DIAGNOSES: 1. Right calcaneal osteomyelitis. 2. Sepsis. 3. Abscess, right heel. 4. Neuropathic ulcer 5.5 x 5.0 x 1.0 cm deep. 5. Septic Achilles tendinitis. POSTOPERATIVE DIAGNOSES: 1. Right calcaneal osteomyelitis. 2. Sepsis. 3. Abscess, right heel. 4. Neuropathic ulcer 5.5 x 5.0 x 1.0 cm deep. 5. Septic Achilles tendinitis. PROCEDURES: 1. Right irrigation and debridement of heel ulcer. 2. Evacuation of right heel abscess. 3. Irrigation and sharp excisional debridement 5.5 x 5 cm x 1.0 cm neuropathic ulcer. 4. Partial calcanectomy. 5. Application antibiotic Stimulan beads. 6. Debridement septic Achilles tendon. 7. Excisional debridement including skin, subcutaneous fat, periosteum and fascia, right heel. SURGEON: Harry Maher DO, MD EGYPTOLOGIST: None. ANESTHESIA: Local MAC. SPECIMENS: 1. Aerobic, anaerobic, Gram stain, deep right heel periosteum and bone. 2. Bone calcaneus for pathologic assessment, right side. DRAINS: None. COMPLICATIONS: None. BLOOD LOSS: 3 mL PERTINENT HISTORY: This is a 75-year-old woman who is quadriplegic. She developed severe ulceration on her right heel. She was then treated by local library historian, Dr. Holly, who performed an I and D a nd then debridement of her calcaneus. The patient was then presented to [facility] with increasing confusion and sepsis, admitted to the hospitalist service initially and diagnosed wi th urosepsis. However, after further imaging, noted to have sepsis related to her calcaneal osteomye litis with questionable abscess of the right heel and per MRI high signal within the distal Achilles consistent with a septic Achilles tendinitis. The patient was then scheduled for surgery as indicate d. After a long discussion regarding debridement and limb salvage versus below-knee amputation. The patient and family opted for limb salvage with debridement and irrigation. All potential risks, benefits, alternatives, complications, alternatives, rehab potential for incompl ete relief of symptoms, need for further surgery, DVT, PE, , persistent pain, swelling, scarring , weakness, neurovascular injury, wound complications, bone fracture, need for further amputation was discussed with the patient and family. The patient decided to proceed with the procedure as indicat ed. DESCRIPTION OF PROCEDURE: The patient was taken to the operative suite and placed supine on the oper ating room table. After review of consent and identification of proper operative site, the patient w as sedated and monitored anesthesia care was provided. The patient was placed in a semi-lateral posi tion with the affected side up. All bony prominences were properly padded and protected. Right lowe r extremity was then sterilely prepped and draped in usual fashion, elevated and exsanguinated with a n Esmarch bandage, and an Esmarch tourniquet applied over sterile surgical towel at the level of the ankle. Pneumatic tourniquet was not used during the case. After surgical timeout was performed, sharp 15 blade, excisional debridement was performed of the rig ht heel ulcer measuring 5 x 5.5 x 1.0 cm. After gross debris was removed, including a large eschar o verlying the entirety of the affected area, there was noted to be trail of abscess. The trial of abs cess was then tracked the periosteum and bone of the calcaneus and at this point specimens were obtai michelle for aerobic, anaerobic and Gram stain. Next, the heel pad was then sharply debrided with a 15 bl merlyn scalpel including the skin, subcutaneous tissue, fascia and periosteum including sharp debridemen t including a 15-blade scalpel and curettage. Once this was completed, it was also noted to be a tra il of necrotic tissue extending into the Achilles tendon consistent with septic Achilles tendinitis. Next, sharp debridement was performed with excision of necrotic distal Achilles tendon fibers. Afte r all necrotic debris had been sharply excised and evacuated and local abscess had also been cleared with a curette and rongeur, pulsatile lavage with 6 liters of fluid and Ancef additive was then used to lavage the area of concern until clear. Once this was completed, top gloves and top sheet were ch anged and antibiotic Stimulan beads were created using vancomycin powder and gentamicin liquid. The small beads were then allowed to set at the back table. Next, further exploration was performed, the calcaneus noted to have softened features consistent with osteomyelitis of the calcaneus. House ret ractors and [employer] retractors were placed in the heel pad retracted and create visualization of th e softened heel bone. The partial calcanectomy was then performed using an osteotome and a mallet an d a rongeur to resect the obviously affected and infected calcaneal bone. The rest was smoothed with a rongeur. This was sent for pathological evaluation for osteomyelitis. Next, the antibiotic beads were then placed in the resultant bead pouch and this was then loosely closed with interrupted 3-0 n ylon. Next, the superficial bead pouch was created using Acticoat Flex and skin stapler around the p eriphery of the heel lesion. Next, sterile compressive dressing was applied consisting of Adaptic, s terile 4 x 4s, ABD pads x2, cast padding, and an Fredis wrap. The tourniquet was released. Normal hype remic response returned to the toes. The patient was then awakened and taken to recovery in stable c ondition. Job ID: [id number]
--- NOTE | 2021-05-24 19:02 | Hospitalist Progress Note ---
Date of Service May 24, 2021 Assessment & Plan (1) Sepsis: Plan: Sepsis with organ dysfunction-acute renal failure and toxic encephalopathy Was hypotensive on admission but received 30 mils per KG crystalloid and now normotensive She is not encephalopathic Source is right foot osteomyelitis Initially suspected UTI although with indwelling [place] could well be colonization. ALso with large sacral wound that does not appear infected -blood Cultures pending-no growth to date -Urine culture with mixed sergo -Continue broad spectrum with Meropenem and vancomycin as well as ongoing treatment with p.o. Diflucan given h/o ESBL E. coli, MRSA, and Maren Ortho consult appreciated--> arterial doppler negative, foot/heel MRI with OM of heel, ulcer with gas, no abscess,+tendonitis, Achilles tendon not attached,diffuse myositis -Now status debridement of right foot implant stimulant antibiotic-soaked beads -Postoperative care as below neck surgery -Awaiting infectious disease consultation (2) Osteomyelitis: Plan: Right foot calcaneal osteomyelitis with gasappears to be source of sepsis as above -Status post debridement with Ortho as above continue abx as above Will place ID consult for recommendations on antibiotics for after debridement- IV versus p.o. versus none at all? (3) UTI (urinary tract infection): Plan: Ruled out will ensure Menchaca has been exchanged (4) Acute on chronic renal failure: Plan: Acute component likely secondary to sepsis; underlying stage III CKD Was improved, today creatinine 1.50 Give 1 L of normal saline at 80 mL's per hour Follow BMP in the morning (5) CAD (coronary artery disease): Plan: Non acute issue -Held Plavix for surgery-restart orthopedic surgery -Continue metoprolol which was initially held on account of low blood pressure (6) Diabetes type 2, controlled: Plan: Glucose fairly well controlled -pharmacy glycemic consult continue insulin (7) HTN (hypertension): Plan: Blood pressure low upon admissionmetoprolol held and BPs now improved-restarted metoprolol as above (8) Hypothyroid: Plan: TSH 157. FT4 0.24 Uncontrolled hypothyroidismdoes not appear to be in myxedema coma Has a h/o thyroidectomy and levothyroxine is no longer on her home medication list at previous dose of 125 mcg daily-question if she has been receiving this medication since last hospitalization -Started back on levothyroxine 50 mcg every other day for several days and then increased to 50 mcg daily on 05/22 Plan to increase slowly back to her usual home dose of 125 mcg daily Follow TSH in 4 to 6 weeks (9) Quadriplegia: Plan: Quadriplegia Developed following elective cervical spine surgery in 09/2019 Continue baclofen 10 mg p.o. at bedtime, 5 mg p.o. 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 (11) Sacral wound: Plan: Stage IV pressure ulcers, sacral wound Wound care consulted-recommended Surgery consult Surgery said Santyl and chemical debridement, no surgery Patient with history of pressure ulcers on ankles bilaterally, and sacral wound -Continue home Vit C, MVI -continue to offload pressure, air mattress (12) Adnexal cyst: Plan: 6 cm septated, stable from previous and this is documented in previous records and has been discussed with patient follow as outpt with [employer] Plan: DVT proph-Lovenox Dispo-continued stay recovery from foot debridement and continue treatment with IV antibiotics Eventually she will go back to her retirement Admission and Anticipated Discharge Date Admission Date: May 18, 2021 Subjective Patient recently returned from her foot debridement surgery. She was sleeping but easily awoke. She denied any pain. Denies shortness of chest pain. She had no complaints. She denied any nausea. I discussed her care with her nurse Review of Systems Review of Systems: All systems reviewed & are unremarkable except as noted in HPI & below Physical Exam Constitutional: WD/WN, vitals as above Eyes: + anicteric sclerae Neck: trachea midline, no thyromegaly Respiratory: normal respiratory effort, lungs clear to auscultation Cardiovascular: RRR, no murmur, no edema Chest (Breasts): Chest: normal inspection of chest Gastrointestinal (Abdomen): normal bowel sounds, soft, nontender, no hepatosplenomegaly Musculoskeletal: Extremities: + extremities abnormal to inspection (Flexion contractures in the bilateral lower extremities), no cyanosis and no clubbing Skin: no rashes, warm and dry Dressing on right foot and lower extremity Neurologic: + focal motor deficit (Weakness in all 4 extremities lower greater than upper extremities) and awake; + does not move all extremities and not confused Psychiatric: Orientation: alert, oriented x 3 and cooperative Results & Data Results & Data ([facility]) Vital Signs (Past 12 Hours) Vital Signs Temp Pulse Pulse Pulse Resp BP Pulse Ox 05/24/21 16:13 36.3 C L 57 L 18 123/73 95 05/24/21 15:13 36.7 C 52 L 16 122/86 92 05/24/21 14:43 36.6 C 58 L 16 126/79 92 05/24/21 14:30 56 L 16 138/74 94 05/24/21 14:20 36.6 C 57 L 18 118/49 L 97 05/24/21 14:10 58 L 16 105/45 L 94 05/24/21 14:00 57 L 14 114/50 L 98 05/24/21 13:53 37.1 C 60 15 123/51 L 99 05/24/21 10:21 36.5 C 59 L 18 127/68 92 05/24/21 09:20 36.7 C 62 20 164/69 H 97 05/24/21 08:33 37.0 C 65 16 152/77 H 94 05/24/21 07:42 69 Laboratory Results 05/24/21 05/24/21 05/24/21 Range/Units 16:16 13:56 09:46 WBC (4.8-10.8) K/uL RBC (4.2-5.4) M/uL Hgb (12.0-16.0) g/dL Hct (37-47) % MCV (80-100) fL MCH (25-34) pg MCHC (32-36) g/dL RDW Std Deviation (36.4-46.3) fL RDW Coeff of Alicia (11.5-14.5) % Plt Count (130-400) K/uL MPV (7.4-10.4) fL Immature Gran % (Auto) % Neut % (Auto) % Lymph % (Auto) % [place] % (Auto) % Eos % (Auto) % Baso % (Auto) % Neut # (Auto) (1.4-6.5) K/uL Lymph # (Auto) (1.2-3.4) K/uL [place] # (Auto) (0.11-0.59) K/uL Eos # (Auto) (0-0.5) K/uL Baso # (Auto) (0-0.2) K/uL Immature Gran # (Auto) (0.00-0.02) K/uL Sodium (136-145) mmol/L Potassium (3.5-5.1) mmol/L Chloride (98-107) mmol/L Carbon Dioxide (21-32) mmol/L Anion Gap (3-11) BUN (7-18) mg/dl Creatinine (0.6-1.2) mg/dl Est Cr Clr Drug Dosing ml/min Est GFR ( Amer) ml/min Est GFR (Non-Af Amer) ml/min BUN/Creatinine Ratio (10-20) Glucose (70-99) mg/dl POC Glucose 180 H 144 H (70-99) mg/dl Calcium (8.5-10.1) mg/dl Total Bilirubin (0.2-1) mg/dl Direct Bilirubin (0-0.2) mg/dl AST (15-37) U/L ALT (12-78) U/L Alkaline Phosphatase (45-117) U/L Total Protein (6.4-8.2) gm/dl Albumin (3.4-5.0) gm/dl Vancomycin Trough 20.7 (See Comment) mcg/ml 05/24/21 05/24/21 05/24/21 Range/Units 08:05 06:23 06:23 WBC 12.22 H (4.8-10.8) K/uL RBC 2.93 L (4.2-5.4) M/uL Hgb 10.4 L (12.0-16.0) g/dL Hct 32.2 L (37-47) % MCV 109.9 H (80-100) fL MCH 35.5 H (25-34) pg MCHC 32.3 (32-36) g/dL RDW Std Deviation 60.1 H (36.4-46.3) fL RDW Coeff of Alicia 15.3 H (11.5-14.5) % Plt Count 509 H (130-400) K/uL MPV 9.8 (7.4-10.4) fL Immature Gran % (Auto) 2.9 % Neut % (Auto) 67.6 % Lymph % (Auto) 18.9 % [place] % (Auto) 5.6 % Eos % (Auto) 4.4 % Baso % (Auto) 0.6 % Neut # (Auto) 8.27 H (1.4-6.5) K/uL Lymph # (Auto) 2.31 (1.2-3.4) K/uL [place] # (Auto) 0.68 H (0.11-0.59) K/uL Eos # (Auto) 0.54 H (0-0.5) K/uL Baso # (Auto) 0.07 (0-0.2) K/uL Immature Gran # (Auto) 0.35 H (0.00-0.02) K/uL Sodium 139 (136-145) mmol/L Potassium 4.0 (3.5-5.1) mmol/L Chloride 106 (98-107) mmol/L Carbon Dioxide 28 (21-32) mmol/L Anion Gap 5.0 (3-11) BUN 22 H (7-18) mg/dl Creatinine 1.50 H (0.6-1.2) mg/dl Est Cr Clr Drug Dosing 31.3 ml/min Est GFR ( Amer) 39.4 ml/min Est GFR (Non-Af Amer) 34.0 ml/min BUN/Creatinine Ratio 14.4 (10-20) Glucose 138 H (70-99) mg/dl POC Glucose 150 H (70-99) mg/dl Calcium 8.1 L (8.5-10.1) mg/dl Total Bilirubin 0.3 (0.2-1) mg/dl Direct Bilirubin < 0.1 (0-0.2) mg/dl AST 29 (15-37) U/L ALT 26 (12-78) U/L Alkaline Phosphatase 66 (45-117) U/L Total Protein 6.3 L (6.4-8.2) gm/dl Albumin 2.2 L (3.4-5.0) gm/dl Vancomycin Trough (See Comment) mcg/ml PG Care Time/CCT Total # of Minutes Spent Total Time Spent with Patient: Total time spent is greater than 50% in coordination of care (as documented) at patient's floor/unit and/or counseling patient: Coding Level of Care Code 84458 Subseq Hosp Care Lvl 2 Diagnoses Sepsis A41.9 Osteomyelitis M86.9 UTI (urinary tract infection) N39.0 Acute on chronic renal failure N17.9; N18.9 CAD (coronary artery disease) I25.10 Associated angina: without angina Coronary Disease-Associated Artery/Lesion type: [place] artery [place] vs. transplanted heart: [place] heart Diabetes type 2, controlled E11.9 Diabetes mellitus complication status: without complication Diabetes mellitus shake feeder insulin use: unspecified shake feeder insulin use status HTN (hypertension) I10 Hypertension type: unspecified Hypothyroid E03.9 Hypothyroidism type: unspecified Quadriplegia G82.50 Anemia D64.9 Anemia type: unspecified type Sacral wound S31.000A Adnexal cyst N94.9 (1) CAD (coronary artery disease) Associated angina: without angina Coronary Disease-Associated Artery/Lesion type: [place] artery [place] vs. transplanted heart: [place] heart Qualified Code(s): I25.10 - Atherosclerotic heart disease of [place] coronary artery without angina pectoris (2) Anemia Anemia type: unspecified type Qualified Code(s): D64.9 - Anemia, unspecified (3) Hypothyroid Hypothyroidism type: unspecified Qualified Code(s): E03.9 - Hypothyroidism, unspecified (4) Diabetes type 2, controlled Diabetes mellitus complication status: without complication Diabetes mellitus halfway insulin use: unspecified halfway insulin use status Qualified Code(s): E11.9 - Type 2 diabetes mellitus without complications (5) HTN (hypertension) Hypertension type: unspecified Qualified Code(s): I10 - Essential (primary) hypertension
[2021-05-24] MEDS: SENNA 8.6 MG TAB PO SCH (21:33)
[2021-05-24] MEDS: DOCUSATE SODIUM 100 MG CAP PO SCH (21:34)
[2021-05-24] MEDS: ARTIFICIAL TEARS OP SCH (21:35)
[2021-05-24] MEDS: ENOXAPARIN INJ 30 MG/0.3 ML SYR SQ SCH (21:36)
[2021-05-24] MEDS: INSULIN GLARGINE SOLOSTAR 100 UNITS/ML 3 ML PEN SC SCH (21:49)
[2021-05-25] MEDS: LEVOTHYROXINE SODIUM 50 MCG TABLET PO SCH (06:12)
[2021-05-25] MEDS: MEROPENEM 500 MG in SYRINGE 0 ML IV SCH ×3 (06:12→21:59)
[2021-05-25 07:48] LABS: Basophils # (auto) 0.05 K/uL (0-0.2); Basophils % (auto) 0.3 %; Eosinophils # (auto) 0.08 K/uL (0-0.5); Eosinophils % (auto) 0.4 %; Hematocrit (blood only) 28.4 % (37-47); Hemoglobin 9.2 g/dL (12.0-16.0); Immature Granulocytes # (auto) 0.49 K/uL (0.00-0.02); Immature Granulocytes % (auto) 2.7 %; Lymphocytes # (auto) 1.88 K/uL (1.2-3.4); Lymphocytes % (auto) 10.2 %; Mean Corpuscular Hemoglobin 35.8 pg (25-34); Mean Corpuscular Hgb Conc 32.4 g/dL (32-36); Mean Corpuscular Volume 110.5 fL (80-100); Mean Platelet Volume 10.1 fL (7.4-10.4); Monocytes # (auto) 0.75 K/uL (0.11-0.59); Monocytes % (auto) 4.1 %; Neutrophils # (auto) 15.19 K/uL (1.4-6.5); Neutrophils % (auto) 82.3 %; Platelet Count 636 K/uL (130-400); RDW Coefficient of Variation 14.9 % (11.5-14.5); RDW Standard Deviation 58.8 fL (36.4-46.3); Red Blood Count 2.57 M/uL (4.2-5.4); White Blood Count 18.44 K/uL (4.8-10.8)
[2021-05-25 08:15] LABS: BUN Creatinine Ratio 19.1 (10-20); Calcium 8.4 mg/dl (8.5-10.1); Creatinine Clr Calc Pharmacy 36.6 ml/min; Est GFR (African American) 49.6 ml/min; Est GFR (Non-African American) 42.8 ml/min; Potassium 4.5 mmol/L (3.5-5.1)
[2021-05-25 08:16] LABS: Macrocytosis Present
--- NOTE | 2021-05-25 08:38 | Orthopedic Progress Note ---
Date of Service May 25, 2021 Assessment & Plan (1) Stage IV pressure ulcer of right heel: Plan: 75 yo female quadriplegic with urosepsis and osteomyelitis right heel 1. Med management- cont IV abx, Meropenem and Vanco 2. DVT prophylaxis- Lovenox, SCDs 3. D/C planning- (2) Osteomyelitis: Admission and Anticipated Discharge Date Admission Date: May 18, 2021 Subjective Pt resting in bed, A&O Physical Exam Physical Exam: Dressing intact right LE Results & Data ([facility]) Vital Signs (Past 12 Hours) Vital Signs Temp Pulse Pulse Pulse Resp BP BP 05/25/21 07:30 48 L 05/25/21 07:00 36.3 C L 57 L 18 123/73 05/25/21 03:00 36.4 C L 59 L 18 119/69 05/25/21 00:00 53 L 05/24/21 23:00 36.4 C L 59 L 18 126/71 Pulse Ox 05/25/21 07:30 05/25/21 07:00 95 05/25/21 03:00 97 05/25/21 00:00 05/24/21 23:00 95 Laboratory Results Microbiology 05/24/21 Unknown Gram Stain - Final Foot,Right 05/24/21 Unknown Gram Stain - Final Foot,Right 05/24/21 14:44 Gram Stain - Final Foot,Right 05/18/21 16:05 Aerobic Blood Culture - Final Blood No growth in Aerobic bottle after 5 days. Anaerobic Blood Culture - Final No growth in Anaerobic bottle after 5 days. 05/18/21 16:00 Aerobic Blood Culture - Final Blood No growth in Aerobic bottle after 5 days. Anaerobic Blood Culture - Final No growth in Anaerobic bottle after 5 days. 05/25/21 05/25/21 05/24/21 Range/Units 07:38 07:38 16:16 WBC 18.44 H (4.8-10.8) K/uL RBC 2.57 L (4.2-5.4) M/uL Hgb 9.2 L (12.0-16.0) g/dL Hct 28.4 L (37-47) % MCV 110.5 H (80-100) fL MCH 35.8 H (25-34) pg MCHC 32.4 (32-36) g/dL RDW Std Deviation 58.8 H (36.4-46.3) fL RDW Coeff of Alicia 14.9 H (11.5-14.5) % Plt Count 636 H (130-400) K/uL MPV 10.1 (7.4-10.4) fL Immature Gran % (Auto) 2.7 % Neut % (Auto) 82.3 % Lymph % (Auto) 10.2 % [place] % (Auto) 4.1 % Eos % (Auto) 0.4 % Baso % (Auto) 0.3 % Neut # (Auto) 15.19 H (1.4-6.5) K/uL Lymph # (Auto) 1.88 (1.2-3.4) K/uL [place] # (Auto) 0.75 H (0.11-0.59) K/uL Eos # (Auto) 0.08 (0-0.5) K/uL Baso # (Auto) 0.05 (0-0.2) K/uL Immature Gran # (Auto) 0.49 H (0.00-0.02) K/uL Macrocytosis Present Sodium 139 (136-145) mmol/L Potassium 4.5 (3.5-5.1) mmol/L Chloride 107 (98-107) mmol/L Carbon Dioxide 26 (21-32) mmol/L Anion Gap 6.0 (3-11) BUN 24 H (7-18) mg/dl Creatinine 1.24 H (0.6-1.2) mg/dl Est Cr Clr Drug Dosing 36.6 ml/min Est GFR ( Amer) 49.6 ml/min Est GFR (Non-Af Amer) 42.8 ml/min BUN/Creatinine Ratio 19.1 (10-20) Glucose 123 H (70-99) mg/dl POC Glucose 180 H (70-99) mg/dl Calcium 8.4 L (8.5-10.1) mg/dl Vancomycin Trough (See Comment) mcg/ml 05/24/21 05/24/21 Range/Units 13:56 09:46 WBC (4.8-10.8) K/uL RBC (4.2-5.4) M/uL Hgb (12.0-16.0) g/dL Hct (37-47) % MCV (80-100) fL MCH (25-34) pg MCHC (32-36) g/dL RDW Std Deviation (36.4-46.3) fL RDW Coeff of Alicia (11.5-14.5) % Plt Count (130-400) K/uL MPV (7.4-10.4) fL Immature Gran % (Auto) % Neut % (Auto) % Lymph % (Auto) % [place] % (Auto) % Eos % (Auto) % Baso % (Auto) % Neut # (Auto) (1.4-6.5) K/uL Lymph # (Auto) (1.2-3.4) K/uL [place] # (Auto) (0.11-0.59) K/uL Eos # (Auto) (0-0.5) K/uL Baso # (Auto) (0-0.2) K/uL Immature Gran # (Auto) (0.00-0.02) K/uL Macrocytosis Sodium (136-145) mmol/L Potassium (3.5-5.1) mmol/L Chloride (98-107) mmol/L Carbon Dioxide (21-32) mmol/L Anion Gap (3-11) BUN (7-18) mg/dl Creatinine (0.6-1.2) mg/dl Est Cr Clr Drug Dosing ml/min Est GFR ( Amer) ml/min Est GFR (Non-Af Amer) ml/min BUN/Creatinine Ratio (10-20) Glucose (70-99) mg/dl POC Glucose 144 H (70-99) mg/dl Calcium (8.5-10.1) mg/dl Vancomycin Trough 20.7 (See Comment) mcg/ml
[2021-05-25] MEDS: EZETIMIBE 10 MG TABLET PO SCH (08:53)
[2021-05-25] MEDS: SACCHAROMYCES BOULARDII 250 MG CAP PO SCH ×2 (08:53→22:00)
[2021-05-25] MEDS: POLYETHYLENE (MIRALAX) 17 GM PACK PO SCH (08:53)
[2021-05-25] MEDS: MAGNESIUM OXIDE 400 MG TAB PO SCH (08:53)
[2021-05-25] MEDS: GABAPENTIN 100 MG CAP PO SCH ×3 (08:53→22:00)
[2021-05-25] MEDS: MULTIVITAMIN TAB PO SCH (08:54)
[2021-05-25] MEDS: CLOPIDOGREL BISULFATE 75 MG TAB PO SCH (08:54)
[2021-05-25] MEDS: BACLOFEN 10 MG TAB PO SCH ×3 (08:54→22:07)
[2021-05-25] MEDS: ASCORBIC ACID 500 MG TAB PO SCH ×2 (08:54→22:00)
[2021-05-25] MEDS: FLUCONAZOLE 100 MG TAB PO SCH (08:54)
[2021-05-25] MEDS: METOPROLOL TARTRATE 25 MG TAB PO SCH ×2 (08:54→22:00)
[2021-05-25] MEDS: DOCUSATE SODIUM 100 MG CAP PO SCH ×2 (08:55→22:00)
[2021-05-25] MEDS: FLUTICASONE PROPIONATE NA SPR 16 GM BTL NAE SCH (08:55)
[2021-05-25] MEDS: COLLAGENASE OINT 30 GM TUBE TOP SCH (08:56)
[2021-05-25] MEDS: INSULIN ASPART 100 UNITS/ML 3 ML PEN SC SCH ×4 (09:00→22:13)
[2021-05-25] MEDS ORDERED: MULTIVITAMIN TAB PO SCH (09:00)
[2021-05-25] MEDS: VANCOMYCIN HCL 750 MG in SODIUM CHLORIDE 0.9% 250 ML IV SCH (13:21)
[2021-05-25] MEDS ORDERED: bisacodyL 10 MG SUPP PR STA (17:18)
--- NOTE | 2021-05-25 17:33 | Hospitalist Progress Note ---
Date of Service May 25, 2021 Assessment & Plan (1) Sepsis: Plan: Sepsis with organ dysfunction-acute renal failure and toxic encephalopathy Was hypotensive on admission but received 30 mils per KG crystalloid and now normotensive She is not encephalopathic Source is right foot osteomyelitis Initially suspected UTI although with indwelling [place] but urine culture negative ALso with large sacral wound that does not appear infected -blood Cultures pending-no growth to date -Urine culture with mixed sergo -intraop wound cultures from foot debridement now with GNR -Continue broad spectrum with Meropenem and vancomycin as well as ongoing treatment with p.o. Diflucan given h/o ESBL E. coli, MRSA, and Maren and await culture results Ortho consult appreciated--> arterial doppler negative, foot/heel MRI with OM of heel, ulcer with gas, no abscess,+tendonitis, Achilles tendon not attached,diffuse myositis -Now status debridement of right foot implant stimulant antibiotic-soaked beads -Postoperative care as per Ortho -Awaiting infectious disease consultation on Thursday (2) Osteomyelitis: Plan: Right foot calcaneal osteomyelitis with gasappears to be source of sepsis as above -Status post debridement with Ortho as above continue abx as above Will place ID consult for recommendations on antibiotics for after debridement- IV versus p.o. versus none at all? (3) UTI (urinary tract infection): Plan: Ruled out Menchaca has been exchanged here on 05/19/21 (4) Acute on chronic renal failure: Plan: Acute component likely secondary to sepsis; underlying stage III CKD resolved follow BMP periodically (5) CAD (coronary artery disease): Plan: No acute issue -Held Plavix for surgery-restarted post-op by orthopedic surgery -Continue metoprolol which was initially held on account of low blood pressure (6) Diabetes type 2, controlled: Plan: Glucose fairly well controlled -pharmacy glycemic consult continue insulin (7) HTN (hypertension): Plan: Blood pressure low upon admissionmetoprolol held and BPs now improved-restarted metoprolol (8) Hypothyroid: Plan: TSH 157. FT4 0.24 Uncontrolled hypothyroidismdoes not appear to be in myxedema coma Has a h/o thyroidectomy and levothyroxine is no longer on her home medication list at previous dose of 125 mcg daily-question if she has been receiving this medication since last hospitalization? -Started back on levothyroxine 50 mcg every other day for several days and then increased to 50 mcg daily on 05/22 Plan to increase slowly back to her usual home dose of 125 mcg daily Follow TSH in 4 to 6 weeks (9) Quadriplegia: Plan: Quadriplegia Developed following elective cervical spine surgery in 09/2019 Continue baclofen 10 mg p.o. at bedtime, 5 mg p.o. 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 (11) Sacral wound: Plan: Stage IV pressure ulcers, sacral wound Wound care consulted-recommended Surgery consult Surgery recommends Santyl/chemical debridement, no surgery Patient with history of pressure ulcers on ankles bilaterally, and sacral wound-was to have wound vac placed as per Plastics recommendation but edges too macerated at last visit -Continue home Vit C, MVI -continue to offload pressure, air mattress (12) Adnexal cyst: Plan: 6 cm septated, stable from previous and this is documented in previous records and has been discussed with patient follow as outpt with [employer] Plan: DVT proph-Lovenox Dispo-continued stay recovery from foot debridement and continue treatment with IV antibiotics Eventually she will go back to her shelter Admission and Anticipated Discharge Date Admission Date: May 18, 2021 Subjective Pt reports some pain in her bottom. She has not moved her bowels in at least 4 days and reports she typically goes daily. SHe is agreeable to a suppository. She is eating and drinking. Tele with SB, NSR, rates 40-60s Review of Systems Review of Systems: All systems reviewed & are unremarkable except as noted in HPI & below Physical Exam Constitutional: WD/WN, vitals as above Eyes: + anicteric sclerae Neck: trachea midline, no thyromegaly Respiratory: normal respiratory effort, lungs clear to auscultation Cardiovascular: RRR, no murmur, no edema Chest (Breasts): Chest: normal inspection of chest Gastrointestinal (Abdomen): normal bowel sounds, soft, nontender, no hepatosplenomegaly Inspection/Auscultation: + abdomen distended (mild) Musculoskeletal: Extremities: + extremities abnormal to inspection (Flexion contractures in the bilateral lower extremities,wrap on rt foot), no cyanosis and no clubbing Skin: no rashes, warm and dry Neurologic: + focal motor deficit (Weakness in all 4 extremities lower greater than upper extremities) and awake; + does not move all extremities and not confused Psychiatric: Orientation: alert, oriented x 3 and cooperative Affect: + flat affect Results & Data Results & Data ([facility]) Vital Signs (Past 12 Hours) Vital Signs Temp Pulse Pulse Pulse Resp BP BP 05/25/21 16:15 36.5 C 56 L 18 114/57 L 05/25/21 15:45 52 L 05/25/21 12:05 36.5 C 58 L 16 126/69 05/25/21 07:30 48 L 05/25/21 07:00 36.3 C L 57 L 18 123/73 Pulse Ox 05/25/21 16:15 93 05/25/21 15:45 05/25/21 12:05 94 05/25/21 07:30 05/25/21 07:00 95 Laboratory Results 05/25/21 05/25/21 05/25/21 Range/Units 16:10 11:58 07:58 WBC (4.8-10.8) K/uL RBC (4.2-5.4) M/uL Hgb (12.0-16.0) g/dL Hct (37-47) % MCV (80-100) fL MCH (25-34) pg MCHC (32-36) g/dL RDW Std Deviation (36.4-46.3) fL RDW Coeff of Alicia (11.5-14.5) % Plt Count (130-400) K/uL MPV (7.4-10.4) fL Immature Gran % (Auto) % Neut % (Auto) % Lymph % (Auto) % [place] % (Auto) % Eos % (Auto) % Baso % (Auto) % Neut # (Auto) (1.4-6.5) K/uL Lymph # (Auto) (1.2-3.4) K/uL [place] # (Auto) (0.11-0.59) K/uL Eos # (Auto) (0-0.5) K/uL Baso # (Auto) (0-0.2) K/uL Immature Gran # (Auto) (0.00-0.02) K/uL Macrocytosis Sodium (136-145) mmol/L Potassium (3.5-5.1) mmol/L Chloride (98-107) mmol/L Carbon Dioxide (21-32) mmol/L Anion Gap (3-11) BUN (7-18) mg/dl Creatinine (0.6-1.2) mg/dl Est Cr Clr Drug Dosing ml/min Est GFR ( Amer) ml/min Est GFR (Non-Af Amer) ml/min BUN/Creatinine Ratio (10-20) Glucose (70-99) mg/dl POC Glucose 134 H 185 H 133 H (70-99) mg/dl Calcium (8.5-10.1) mg/dl 05/25/21 05/25/21 05/24/21 Range/Units 07:38 07:38 20:57 WBC 18.44 H (4.8-10.8) K/uL RBC 2.57 L (4.2-5.4) M/uL Hgb 9.2 L (12.0-16.0) g/dL Hct 28.4 L (37-47) % MCV 110.5 H (80-100) fL MCH 35.8 H (25-34) pg MCHC 32.4 (32-36) g/dL RDW Std Deviation 58.8 H (36.4-46.3) fL RDW Coeff of Alicia 14.9 H (11.5-14.5) % Plt Count 636 H (130-400) K/uL MPV 10.1 (7.4-10.4) fL Immature Gran % (Auto) 2.7 % Neut % (Auto) 82.3 % Lymph % (Auto) 10.2 % [place] % (Auto) 4.1 % Eos % (Auto) 0.4 % Baso % (Auto) 0.3 % Neut # (Auto) 15.19 H (1.4-6.5) K/uL Lymph # (Auto) 1.88 (1.2-3.4) K/uL [place] # (Auto) 0.75 H (0.11-0.59) K/uL Eos # (Auto) 0.08 (0-0.5) K/uL Baso # (Auto) 0.05 (0-0.2) K/uL Immature Gran # (Auto) 0.49 H (0.00-0.02) K/uL Macrocytosis Present Sodium 139 (136-145) mmol/L Potassium 4.5 (3.5-5.1) mmol/L Chloride 107 (98-107) mmol/L Carbon Dioxide 26 (21-32) mmol/L Anion Gap 6.0 (3-11) BUN 24 H (7-18) mg/dl Creatinine 1.24 H (0.6-1.2) mg/dl Est Cr Clr Drug Dosing 36.6 ml/min Est GFR ( Amer) 49.6 ml/min Est GFR (Non-Af Amer) 42.8 ml/min BUN/Creatinine Ratio 19.1 (10-20) Glucose 123 H (70-99) mg/dl POC Glucose 250 H (70-99) mg/dl Calcium 8.4 L (8.5-10.1) mg/dl Wound cultures intraop- GPC on gram stain, GNR growing PG Care Time/CCT Total # of Minutes Spent Total Time Spent with Patient: Total time spent is greater than 50% in coordination of care (as documented) at patient's floor/unit and/or counseling patient: Coding Level of Care Code 07883 Subseq Hosp Care Lvl 2 Diagnoses Sepsis A41.9 Osteomyelitis M86.9 UTI (urinary tract infection) N39.0 Acute on chronic renal failure N17.9; N18.9 CAD (coronary artery disease) I25.10 Coronary Disease-Associated Artery/Lesion type: [place] artery [place] vs. transplanted heart: [place] heart Associated angina: without angina Diabetes type 2, controlled E11.9 Diabetes mellitus marine oil terminal superintendent insulin use: unspecified marine oil terminal superintendent insulin use status Diabetes mellitus complication status: without complication HTN (hypertension) I10 Hypertension type: unspecified Hypothyroid E03.9 Hypothyroidism type: unspecified Quadriplegia G82.50 Anemia D64.9 Anemia type: unspecified type Sacral wound S31.000A Adnexal cyst N94.9 (1) CAD (coronary artery disease) Coronary Disease-Associated Artery/Lesion type: [place] artery [place] vs. transplanted heart: [place] heart Associated angina: without angina Qualified Code(s): I25.10 - Atherosclerotic heart disease of [place] coronary artery without angina pectoris (2) Diabetes type 2, controlled Diabetes mellitus marine oil terminal superintendent insulin use: unspecified marine oil terminal superintendent insulin use status Diabetes mellitus complication status: without complication Qualified Code(s): E11.9 - Type 2 diabetes mellitus without complications (3) HTN (hypertension) Hypertension type: unspecified Qualified Code(s): I10 - Essential (primary) hypertension (4) Hypothyroid Hypothyroidism type: unspecified Qualified Code(s): E03.9 - Hypothyroidism, unspecified (5) Anemia Anemia type: unspecified type Qualified Code(s): D64.9 - Anemia, unspecified
[2021-05-25] MEDS: ENOXAPARIN INJ 30 MG/0.3 ML SYR SQ SCH (22:00)
[2021-05-25] MEDS: SENNA 8.6 MG TAB PO SCH (22:00)
[2021-05-25] MEDS: ARTIFICIAL TEARS OP SCH (22:00)
[2021-05-25] MEDS: INSULIN GLARGINE SOLOSTAR 100 UNITS/ML 3 ML PEN SC SCH (22:11)
[2021-05-26] MEDS: MEROPENEM 500 MG in SYRINGE 0 ML IV SCH ×2 (05:36→13:45)
[2021-05-26] MEDS: LEVOTHYROXINE SODIUM 50 MCG TABLET PO SCH (05:37)
[2021-05-26 06:56] LABS: Basophils # (auto) 0.07 K/uL (0-0.2); Basophils % (auto) 0.5 %; Eosinophils # (auto) 0.31 K/uL (0-0.5); Eosinophils % (auto) 2.4 %; Hematocrit (blood only) 30.3 % (37-47); Hemoglobin 9.6 g/dL (12.0-16.0); Immature Granulocytes # (auto) 0.24 K/uL (0.00-0.02); Immature Granulocytes % (auto) 1.9 %; Lymphocytes # (auto) 1.93 K/uL (1.2-3.4); Lymphocytes % (auto) 14.9 %; Mean Corpuscular Hemoglobin 35.4 pg (25-34); Mean Corpuscular Hgb Conc 31.7 g/dL (32-36); Mean Corpuscular Volume 111.8 fL (80-100); Mean Platelet Volume 9.9 fL (7.4-10.4); Monocytes # (auto) 0.71 K/uL (0.11-0.59); Monocytes % (auto) 5.5 %; Neutrophils # (auto) 9.65 K/uL (1.4-6.5); Neutrophils % (auto) 74.8 %; Platelet Count 595 K/uL (130-400); RDW Standard Deviation 60.8 fL (36.4-46.3); Red Blood Count 2.71 M/uL (4.2-5.4); White Blood Count 12.91 K/uL (4.8-10.8)
[2021-05-26 07:16] LABS: BUN Creatinine Ratio 24.8 (10-20); Calcium 8.8 mg/dl (8.5-10.1); Creatinine Clr Calc Pharmacy 42.8 ml/min; Est GFR (African American) 60.6 ml/min; Est GFR (Non-African American) 52.3 ml/min; Potassium 4.1 mmol/L (3.5-5.1)
[2021-05-26 07:27] LABS: Macrocytosis Present
[2021-05-26] MEDS: POLYETHYLENE (MIRALAX) 17 GM PACK PO SCH (08:40)
[2021-05-26] MEDS: FLUTICASONE PROPIONATE NA SPR 16 GM BTL NAE SCH (08:40)
[2021-05-26] MEDS: COLLAGENASE OINT 30 GM TUBE TOP SCH (08:40)
[2021-05-26] MEDS: ASCORBIC ACID 500 MG TAB PO SCH ×2 (08:41→21:29)
[2021-05-26] MEDS: EZETIMIBE 10 MG TABLET PO SCH (08:41)
[2021-05-26] MEDS: GABAPENTIN 100 MG CAP PO SCH ×3 (08:41→21:24)
[2021-05-26] MEDS: CLOPIDOGREL BISULFATE 75 MG TAB PO SCH (08:41)
[2021-05-26] MEDS: BACLOFEN 10 MG TAB PO SCH ×3 (08:41→21:29)
[2021-05-26] MEDS: SACCHAROMYCES BOULARDII 250 MG CAP PO SCH ×2 (08:41→21:24)
[2021-05-26] MEDS: MAGNESIUM OXIDE 400 MG TAB PO SCH (08:41)
[2021-05-26] MEDS: METOPROLOL TARTRATE 25 MG TAB PO SCH ×2 (08:41→21:26)
[2021-05-26] MEDS: FLUCONAZOLE 100 MG TAB PO SCH (08:41)
[2021-05-26] MEDS: MULTIVITAMIN TAB PO SCH (08:41)
[2021-05-26] MEDS: INSULIN ASPART 100 UNITS/ML 3 ML PEN SC SCH ×4 (08:42→21:31)
[2021-05-26] MEDS: DOCUSATE SODIUM 100 MG CAP PO SCH ×2 (08:42→21:29)
--- NOTE | 2021-05-26 09:04 | Orthopedic Progress Note ---
Date of Service May 26, 2021 Assessment & Plan (1) Stage IV pressure ulcer of right heel: Plan: 75 yo female quadriplegic pt stable POD #2 s/p right heel debridement 1. Med management- continue Meropenem and Vanco 2. DVT prophylaxis- Lovenox, SCDs 3. D/C planning- Admission and Anticipated Discharge Date Admission Date: May 18, 2021 Subjective Pt resting in bed, denies complaints Physical Exam Physical Exam: Right heel dressing removed, acticoat dressing in place, surrounding tissues look good, new dressing applied Results & Data ([facility]) Vital Signs (Past 12 Hours) Vital Signs Temp Pulse Pulse Resp BP BP Pulse Ox 05/26/21 07:00 36.5 C 50 L 20 116/67 94 05/26/21 04:10 50 L 108/75 05/26/21 03:00 36.4 C L 52 L 18 87/52 L 93 05/26/21 00:00 58 L 05/25/21 23:00 36.6 C 59 L 20 108/56 L 92 Laboratory Results 05/26/21 05/26/21 05/26/21 Range/Units 07:16 06:31 06:31 WBC 12.91 H (4.8-10.8) K/uL RBC 2.71 L (4.2-5.4) M/uL Hgb 9.6 L (12.0-16.0) g/dL Hct 30.3 L (37-47) % MCV 111.8 H (80-100) fL MCH 35.4 H (25-34) pg MCHC 31.7 L (32-36) g/dL RDW Std Deviation 60.8 H (36.4-46.3) fL RDW Coeff of Alicia 15.0 H (11.5-14.5) % Plt Count 595 H (130-400) K/uL MPV 9.9 (7.4-10.4) fL Immature Gran % (Auto) 1.9 % Neut % (Auto) 74.8 % Lymph % (Auto) 14.9 % [place] % (Auto) 5.5 % Eos % (Auto) 2.4 % Baso % (Auto) 0.5 % Neut # (Auto) 9.65 H (1.4-6.5) K/uL Lymph # (Auto) 1.93 (1.2-3.4) K/uL [place] # (Auto) 0.71 H (0.11-0.59) K/uL Eos # (Auto) 0.31 (0-0.5) K/uL Baso # (Auto) 0.07 (0-0.2) K/uL Immature Gran # (Auto) 0.24 H (0.00-0.02) K/uL Macrocytosis Present Sodium 139 (136-145) mmol/L Potassium 4.1 (3.5-5.1) mmol/L Chloride 107 (98-107) mmol/L Carbon Dioxide 27 (21-32) mmol/L Anion Gap 5.0 (3-11) BUN 26 H (7-18) mg/dl Creatinine 1.05 (0.6-1.2) mg/dl Est Cr Clr Drug Dosing 42.8 ml/min Est GFR ( Amer) 60.6 ml/min Est GFR (Non-Af Amer) 52.3 ml/min BUN/Creatinine Ratio 24.8 H (10-20) Glucose 74 (70-99) mg/dl POC Glucose 87 (70-99) mg/dl Calcium 8.8 (8.5-10.1) mg/dl 05/25/21 05/25/21 05/25/21 Range/Units 20:03 16:10 11:58 WBC (4.8-10.8) K/uL RBC (4.2-5.4) M/uL Hgb (12.0-16.0) g/dL Hct (37-47) % MCV (80-100) fL MCH (25-34) pg MCHC (32-36) g/dL RDW Std Deviation (36.4-46.3) fL RDW Coeff of Alicia (11.5-14.5) % Plt Count (130-400) K/uL MPV (7.4-10.4) fL Immature Gran % (Auto) % Neut % (Auto) % Lymph % (Auto) % [place] % (Auto) % Eos % (Auto) % Baso % (Auto) % Neut # (Auto) (1.4-6.5) K/uL Lymph # (Auto) (1.2-3.4) K/uL [place] # (Auto) (0.11-0.59) K/uL Eos # (Auto) (0-0.5) K/uL Baso # (Auto) (0-0.2) K/uL Immature Gran # (Auto) (0.00-0.02) K/uL Macrocytosis Sodium (136-145) mmol/L Potassium (3.5-5.1) mmol/L Chloride (98-107) mmol/L Carbon Dioxide (21-32) mmol/L Anion Gap (3-11) BUN (7-18) mg/dl Creatinine (0.6-1.2) mg/dl Est Cr Clr Drug Dosing ml/min Est GFR ( Amer) ml/min Est GFR (Non-Af Amer) ml/min BUN/Creatinine Ratio (10-20) Glucose (70-99) mg/dl POC Glucose 186 H 134 H 185 H (70-99) mg/dl Calcium (8.5-10.1) mg/dl 05/25/21 05/24/21 Range/Units 07:58 20:57 WBC (4.8-10.8) K/uL RBC (4.2-5.4) M/uL Hgb (12.0-16.0) g/dL Hct (37-47) % MCV (80-100) fL MCH (25-34) pg MCHC (32-36) g/dL RDW Std Deviation (36.4-46.3) fL RDW Coeff of Alicia (11.5-14.5) % Plt Count (130-400) K/uL MPV (7.4-10.4) fL Immature Gran % (Auto) % Neut % (Auto) % Lymph % (Auto) % [place] % (Auto) % Eos % (Auto) % Baso % (Auto) % Neut # (Auto) (1.4-6.5) K/uL Lymph # (Auto) (1.2-3.4) K/uL [place] # (Auto) (0.11-0.59) K/uL Eos # (Auto) (0-0.5) K/uL Baso # (Auto) (0-0.2) K/uL Immature Gran # (Auto) (0.00-0.02) K/uL Macrocytosis Sodium (136-145) mmol/L Potassium (3.5-5.1) mmol/L Chloride (98-107) mmol/L Carbon Dioxide (21-32) mmol/L Anion Gap (3-11) BUN (7-18) mg/dl Creatinine (0.6-1.2) mg/dl Est Cr Clr Drug Dosing ml/min Est GFR ( Amer) ml/min Est GFR (Non-Af Amer) ml/min BUN/Creatinine Ratio (10-20) Glucose (70-99) mg/dl POC Glucose 133 H 250 H (70-99) mg/dl Calcium (8.5-10.1) mg/dl Microbiology 05/24/21 Unknown Gram Stain - Final Foot,Right Aerobic and Anaerobic Culture - Preliminary Pseudomonas aeruginosa 05/24/21 Unknown Gram Stain - Final Foot,Right Aerobic and Anaerobic Culture - Preliminary Pin-point growth present, reincubating. 05/24/21 14:44 Gram Stain - Final Foot,Right Aerobic and Anaerobic Culture - Preliminary Gram negative bacilli
[2021-05-26] MEDS: VANCOMYCIN HCL 750 MG in SODIUM CHLORIDE 0.9% 250 ML IV SCH (13:45)
[2021-05-26] MEDS ORDERED: MICONAZOLE NITRATE POWDER 43 GM EXT PRN (17:27)
--- NOTE | 2021-05-26 18:23 | Hospitalist Progress Note ---
Date of Service May 26, 2021 Assessment & Plan (1) Sepsis: Plan: Sepsis with organ dysfunction-acute renal failure and toxic encephalopathy Was hypotensive on admission but resolved with crystalloid bolus She is not encephalopathic Source is right foot osteomyelitis Initially suspected UTI with indwelling [place] but urine culture negative ALso with large sacral wound but does not appear infected -blood Cultures pending-no growth to date -Urine culture with mixed sergo -intraop wound cultures from foot debridement now with Pseudomonas and Staph species Ortho consult appreciated--> arterial doppler negative, foot/heel MRI with OM of heel, ulcer with gas, no abscess,+tendonitis, Achilles tendon not attached,diffuse myositis -Now status debridement of right foot implant stimulant antibiotic-soaked beads -Postoperative care as per Ortho -dc Meropenem and narrow down to Cefepime for now (po Cipro could be an option for future), continue vancomycin for Staph species, and p.o. Diflucan for previous h/o [place] -f/u final wound culture results -Awaiting infectious disease consultation on Thursday (2) Osteomyelitis: Plan: Right foot calcaneal osteomyelitis with gasappears to be source of sepsis as above -Status post debridement with Ortho as above continue abx as above Will place ID consult for recommendations on antibiotics and course of treatment s/p debridement (3) UTI (urinary tract infection): Plan: Ruled out [place] has been exchanged here on 05/19/21 (4) Acute on chronic renal failure: Plan: Acute component likely secondary to sepsis; underlying stage III CKD resolved follow BMP periodically (5) CAD (coronary artery disease): Plan: No acute issue continue Plavix -Continue metoprolol (6) Diabetes type 2, controlled: Plan: Glucose fairly well controlled -pharmacy glycemic consult continue insulin (7) HTN (hypertension): Plan: Blood pressure low upon admissionmetoprolol held and BPs now improved-restarted metoprolol (8) Hypothyroid: Plan: TSH 157. FT4 0.24 Uncontrolled hypothyroidismdoes not appear to be in myxedema coma Has a h/o thyroidectomy and levothyroxine is no longer on her home medication list at previous dose of 125 mcg daily-question if she has been receiving this medication since last hospitalization? -Started back on levothyroxine 50 mcg every other day for several days and then increased to 50 mcg daily on 05/22 Plan to increase slowly back to her usual home dose of 125 mcg daily-increase to 75mcg daily for tomorrow Follow TSH in 4 to 6 weeks (9) Quadriplegia: Plan: Quadriplegia Developed following elective cervical spine surgery in 09/2019 Continue baclofen 10 mg p.o. at bedtime, 5 mg p.o. 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 (11) Sacral wound: Plan: Stage IV pressure ulcer, sacral wound Wound care consulted-recommended Surgery consult Surgery recommends Santyl/chemical debridement, no surgery Patient with history of pressure ulcers on ankles bilaterally, and sacral wound-was to have wound vac placed on sacral decub possibly as per Wound Care but edges too macerated at last visit -Continue home Vit C, MVI -continue to offload pressure, air mattress (12) Adnexal cyst: Plan: 6 cm septated, stable from previous and this is documented in previous records and has been discussed with patient follow as outpt with [employer] Plan: DVT proph-Lovenox Dispo-continued stay recovery from foot debridement and continue treatment with IV antibiotics Eventually she will go back to her group home Admission and Anticipated Discharge Date Admission Date: May 18, 2021 Subjective Pt feelin juell, no complaints. Had a BM last night after bisacodyl suppos. Tele with SB and NSR rates 40s-50s Review of Systems Review of Systems: All systems reviewed & are unremarkable except as noted in HPI & below Physical Exam Constitutional: WD/WN, vitals as above Eyes: + anicteric sclerae Neck: trachea midline, no thyromegaly Respiratory: normal respiratory effort, lungs clear to auscultation Cardiovascular: RRR, no murmur, no edema Chest (Breasts): Chest: normal inspection of chest Gastrointestinal (Abdomen): normal bowel sounds, soft, nontender, no hepatosplenomegaly Inspection/Auscultation: + abdomen distended (mild) Musculoskeletal: Extremities: + extremities abnormal to inspection (Flexion contractures in the bilateral lower extremities,wrap on rt foot), no cyanosis and no clubbing Skin: no rashes, warm and dry Neurologic: + focal motor deficit (Weakness in all 4 extremities lower greater than upper extremities) and awake; + does not move all extremities and not confused Psychiatric: Orientation: alert, oriented x 3 and cooperative Affect: + flat affect Genitourinary: [place] with clear yello wurine Results & Data Results & Data ([facility]) Vital Signs (Past 12 Hours) Vital Signs Temp Pulse Pulse Pulse Resp BP Pulse Ox 05/26/21 18:00 36.3 C L 50 L 18 122/64 92 05/26/21 15:55 50 L 05/26/21 12:04 35.8 C L 47 L 20 102/59 L 92 05/26/21 07:00 36.5 C 50 L 20 116/67 94 Laboratory Results 05/26/21 05/26/21 05/26/21 Range/Units 16:47 11:14 07:16 WBC (4.8-10.8) K/uL RBC (4.2-5.4) M/uL Hgb (12.0-16.0) g/dL Hct (37-47) % MCV (80-100) fL MCH (25-34) pg MCHC (32-36) g/dL RDW Std Deviation (36.4-46.3) fL RDW Coeff of Alicia (11.5-14.5) % Plt Count (130-400) K/uL MPV (7.4-10.4) fL Immature Gran % (Auto) % Neut % (Auto) % Lymph % (Auto) % [place] % (Auto) % Eos % (Auto) % Baso % (Auto) % Neut # (Auto) (1.4-6.5) K/uL Lymph # (Auto) (1.2-3.4) K/uL [place] # (Auto) (0.11-0.59) K/uL Eos # (Auto) (0-0.5) K/uL Baso # (Auto) (0-0.2) K/uL Immature Gran # (Auto) (0.00-0.02) K/uL Macrocytosis Sodium (136-145) mmol/L Potassium (3.5-5.1) mmol/L Chloride (98-107) mmol/L Carbon Dioxide (21-32) mmol/L Anion Gap (3-11) BUN (7-18) mg/dl Creatinine (0.6-1.2) mg/dl Est Cr Clr Drug Dosing ml/min Est GFR ( Amer) ml/min Est GFR (Non-Af Amer) ml/min BUN/Creatinine Ratio (10-20) Glucose (70-99) mg/dl POC Glucose 120 H 96 87 (70-99) mg/dl Calcium (8.5-10.1) mg/dl 05/26/21 05/26/21 05/25/21 Range/Units 06:31 06:31 20:03 WBC 12.91 H (4.8-10.8) K/uL RBC 2.71 L (4.2-5.4) M/uL Hgb 9.6 L (12.0-16.0) g/dL Hct 30.3 L (37-47) % MCV 111.8 H (80-100) fL MCH 35.4 H (25-34) pg MCHC 31.7 L (32-36) g/dL RDW Std Deviation 60.8 H (36.4-46.3) fL RDW Coeff of Alicia 15.0 H (11.5-14.5) % Plt Count 595 H (130-400) K/uL MPV 9.9 (7.4-10.4) fL Immature Gran % (Auto) 1.9 % Neut % (Auto) 74.8 % Lymph % (Auto) 14.9 % [place] % (Auto) 5.5 % Eos % (Auto) 2.4 % Baso % (Auto) 0.5 % Neut # (Auto) 9.65 H (1.4-6.5) K/uL Lymph # (Auto) 1.93 (1.2-3.4) K/uL [place] # (Auto) 0.71 H (0.11-0.59) K/uL Eos # (Auto) 0.31 (0-0.5) K/uL Baso # (Auto) 0.07 (0-0.2) K/uL Immature Gran # (Auto) 0.24 H (0.00-0.02) K/uL Macrocytosis Present Sodium 139 (136-145) mmol/L Potassium 4.1 (3.5-5.1) mmol/L Chloride 107 (98-107) mmol/L Carbon Dioxide 27 (21-32) mmol/L Anion Gap 5.0 (3-11) BUN 26 H (7-18) mg/dl Creatinine 1.05 (0.6-1.2) mg/dl Est Cr Clr Drug Dosing 42.8 ml/min Est GFR ( Amer) 60.6 ml/min Est GFR (Non-Af Amer) 52.3 ml/min BUN/Creatinine Ratio 24.8 H (10-20) Glucose 74 (70-99) mg/dl POC Glucose 186 H (70-99) mg/dl Calcium 8.8 (8.5-10.1) mg/dl PG Care Time/CCT Total # of Minutes Spent Total Time Spent with Patient: Total time spent is greater than 50% in coordination of care (as documented) at patient's floor/unit and/or counseling patient: Coding Level of Care Code 17631 Subseq Hosp Care Lvl 2 Diagnoses Sepsis A41.9 Osteomyelitis M86.9 UTI (urinary tract infection) N39.0 Acute on chronic renal failure N17.9; N18.9 CAD (coronary artery disease) I25.10 Coronary Disease-Associated Artery/Lesion type: [place] artery [place] vs. 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 transplanted heart: [place] heart Associated angina: without angina Qualified Code(s): I25.10 - Atherosclerotic heart disease of [place] coronary artery without angina pectoris (2) Diabetes type 2, controlled Diabetes mellitus senior care insulin use: unspecified senior care insulin use status Diabetes mellitus complication status: without complication Qualified Code(s): E11.9 - Type 2 diabetes mellitus without complications (3) HTN (hypertension) Hypertension type: unspecified Qualified Code(s): I10 - Essential (primary) hypertension (4) Hypothyroid Hypothyroidism type: unspecified Qualified Code(s): E03.9 - Hypothyroidism, unspecified (5) Anemia Anemia type: unspecified type Qualified Code(s): D64.9 - Anemia, unspecified
[2021-05-26] MEDS: ARTIFICIAL TEARS OP SCH (21:23)
[2021-05-26] MEDS: SENNA 8.6 MG TAB PO SCH (21:29)
[2021-05-26] MEDS: ENOXAPARIN INJ 30 MG/0.3 ML SYR SQ SCH (21:30)
[2021-05-26] MEDS: INSULIN GLARGINE SOLOSTAR 100 UNITS/ML 3 ML PEN SC SCH (21:30)
[2021-05-26] MEDS: CEFEPIME 2,000 MG in SYRINGE 0 ML IV SCH (21:37)
[2021-05-27] MEDS: LEVOTHYROXINE SODIUM 75 MCG TABLET PO SCH (05:49)
[2021-05-27] MEDS ORDERED: LEVOTHYROXINE SODIUM 50 MCG TABLET PO SCH (06:30)
[2021-05-27] MEDS: CEFEPIME 2,000 MG in SYRINGE 0 ML IV SCH ×2 (07:53→21:36)
[2021-05-27] MEDS: BACLOFEN 10 MG TAB PO SCH ×3 (07:54→21:36)
[2021-05-27] MEDS: METOPROLOL TARTRATE 25 MG TAB PO SCH ×2 (07:54→21:34)
[2021-05-27] MEDS: FLUCONAZOLE 100 MG TAB PO SCH (07:54)
[2021-05-27] MEDS: SACCHAROMYCES BOULARDII 250 MG CAP PO SCH ×2 (07:54→21:33)
[2021-05-27] MEDS: MAGNESIUM OXIDE 400 MG TAB PO SCH (07:54)
[2021-05-27] MEDS: POLYETHYLENE (MIRALAX) 17 GM PACK PO SCH (07:54)
[2021-05-27] MEDS: DOCUSATE SODIUM 100 MG CAP PO SCH ×2 (07:54→21:35)
[2021-05-27] MEDS: EZETIMIBE 10 MG TABLET PO SCH (07:55)
[2021-05-27] MEDS: CLOPIDOGREL BISULFATE 75 MG TAB PO SCH (07:55)
[2021-05-27] MEDS: ASCORBIC ACID 500 MG TAB PO SCH ×2 (07:55→21:35)
[2021-05-27] MEDS: MULTIVITAMIN TAB PO SCH (07:55)
[2021-05-27] MEDS: GABAPENTIN 100 MG CAP PO SCH ×3 (07:55→21:34)
[2021-05-27] MEDS: FLUTICASONE PROPIONATE NA SPR 16 GM BTL NAE SCH (07:55)
[2021-05-27] MEDS: COLLAGENASE OINT 30 GM TUBE TOP SCH (07:56)
[2021-05-27] MEDS: INSULIN ASPART 100 UNITS/ML 3 ML PEN SC SCH ×4 (07:56→21:46)
[2021-05-27 08:09] LABS: Basophils # (auto) 0.08 K/uL (0-0.2); Basophils % (auto) 0.9 %; Eosinophils # (auto) 0.29 K/uL (0-0.5); Eosinophils % (auto) 3.3 %; Hematocrit (blood only) 31.3 % (37-47); Hemoglobin 10.1 g/dL (12.0-16.0); Immature Granulocytes # (auto) 0.19 K/uL (0.00-0.02); Immature Granulocytes % (auto) 2.1 %; Lymphocytes # (auto) 1.86 K/uL (1.2-3.4); Mean Corpuscular Hemoglobin 36.1 pg (25-34); Mean Corpuscular Hgb Conc 32.3 g/dL (32-36); Mean Corpuscular Volume 111.8 fL (80-100); Mean Platelet Volume 9.9 fL (7.4-10.4); Monocytes # (auto) 0.49 K/uL (0.11-0.59); Monocytes % (auto) 5.5 %; Neutrophils # (auto) 5.93 K/uL (1.4-6.5); Neutrophils % (auto) 67.2 %; Platelet Count 601 K/uL (130-400); RDW Coefficient of Variation 14.9 % (11.5-14.5); White Blood Count 8.84 K/uL (4.8-10.8)
[2021-05-27 08:30] LABS: Macrocytosis Present
[2021-05-27 08:42] LABS: Albumin Level 2.2 gm/dl (3.4-5.0); BUN Creatinine Ratio 21.1 (10-20); Calcium 8.8 mg/dl (8.5-10.1); Creatinine Clr Calc Pharmacy 37.8 ml/min; Est GFR (African American) 51.6 ml/min; Est GFR (Non-African American) 44.5 ml/min; Potassium 4.2 mmol/L (3.5-5.1)
[2021-05-27 08:45] LABS: Albumin Globulin Ratio 0.6 (0.9-2); Bilirubin,Total 0.3 mg/dl (0.2-1); Globulin 3.9 gm/dl (2.5-4.0); Total Protein 6.1 gm/dl (6.4-8.2)
--- NOTE | 2021-05-27 10:46 | Orthopedic Progress Note ---
Date of Service May 27, 2021 Assessment & Plan (1) Stage IV pressure ulcer of right heel: Plan: 75 yo female quadriplegic pt stable POD #3 s/p right heel debridement 1. Med management- continue Meropenem and Vanco 2. DVT prophylaxis- Lovenox, SCDs 3. Daily dressing changes (noted in PE section) 4. No further surgery needed at this time. Orthopedics will sign off at this time. Please call with any questions. Instructions placed in dc section. Admission and Anticipated Discharge Date Admission Date: May 18, 2021 Subjective POD 3 Nursing present changing patients bed linen. Wound care nursing present (Mayra Macdonald) to eval sacral wound and observe heel wound/dressing. Pt somewhat confused this AM. Physical Exam Physical Exam: Sacral wound attended to by Wound care nursing. Dressing on right heel removed. Acticoat 7 flex covering wound with Stimulan beads. Covering is stapled to maintain position. Minimal drainage noted. No purulence. No odor. Edges clean. Minimal erythema around the edges. Edema of the dorsum of foot noted. Foot warm. Cap refill < 2 seconds. Wound redressed with adaptic , 4x4's, ABD, Kerlix, and gricelda wrap loosely wrapped. Results & Data ([facility]) Vital Signs (Past 12 Hours) Vital Signs Temp Pulse Pulse Resp BP BP Pulse Ox 05/27/21 07:05 77 05/27/21 07:00 36.4 C L 58 L 20 144/76 H 94 05/27/21 03:00 36.6 C 58 L 20 129/71 95 05/27/21 02:53 57 L 05/26/21 23:00 36.6 C 58 L 18 115/68 94
--- NOTE | 2021-05-27 13:02 | Hospitalist Progress Note ---
Date of Service May 27, 2021 Assessment & Plan (1) Osteomyelitis: Plan: Right foot calcaneal osteomyelitis with gas. Source of sepsis. - S/p debridement, right partial calcanectomy, and debridement septic Achilles tendon with Dr. Maher (Ortho) on 05/24/2021. - ID consulted, though I don't see note in chart yet. Recs were sent to prior hospitalist and are in Dr. Anton's note from 05/26/2021. * 6 weeks abx from 05/19 (end date: 06/29/2021) * -> Vanc + cefepime for MRSA and Pseudomonas in surgical cultures. - Likely stop fluconazole after ID consult as I see this only in superficial skin culture and urine culture in 01/2021. (2) UTI (urinary tract infection): Plan: Ruled out. [place] has been exchanged here on 05/19/21. (3) Acute on chronic renal failure: Plan: Acute component likely secondary to sepsis; underlying stage III CKD. Baseline Cr. ~1.0 - 1.1. - Cr presently at baseline. (4) CAD (coronary artery disease): Plan: No acute issues. - Continue Plavix, ezetimibe, & metoprolol (5) Diabetes type 2, controlled: Plan: A1c was 6.9% last month. Glucose fairly well controlled. - Pharmacy glycemic consulted -> Blood sugars at goal over last 24 hours. (6) HTN (hypertension): Plan: Blood pressure low upon admission. Presently 105/65. - Continue beta-regine (7) Hypothyroid: Plan: TSH 157 & FT4 0.24 this admission. Uncontrolled hypothyroidismdoes not appear to be in myxedema coma. Has a h/o thyroidectomy and levothyroxine is no longer o n her home medication list at previous dose of 125 mcg daily-question if she has been receiving this medication since last hospitalization? - Started back on levothyroxine 50 mcg every other day for several days and then increased to 50 mcg daily on 05/22 - Now levothyroxine 75 mcg PO daily (8) Quadriplegia: Plan: Quadriplegia developed following elective cervical spine surgery in 09/2019 at [facility]. Contractures evident in all 4 limbs. Limited use of left shoulder only. Continue baclofen 10 mg p.o. at bedtime, 5 mg p.o. twice daily for spasms (9) Anemia: Plan: Macrocytic. B12, folate normal. No signs of active bleeding. 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 - Monitor (10) Sacral wound: Plan: Stage IV pressure ulcer, sacral wound. Wound care consulted - recommended surgery consult. On 05/22/2021, surgery recommended Santyl/chemical debridement, no surgery. Patient with history of pressure ulcers on ankles bilaterally, and sacral wound-was to have wound vac placed on sacral decub possibly as per Wound Care but edges too macerated at last visit - Continue home Vit C, MVI - Continue to offload pressure, air mattress (11) Adnexal cyst: Plan: 6 cm septated, stable from previous and this is documented in previous records and has been discussed with patient. - Follow as outpt with [employer] (12) DVT prophylaxis: Plan: Lovenox 30 mg SQ daily Admission and Anticipated Discharge Date Admission Date: May 18, 2021 Subjective Somewhat confused today. She tells me several times that she can no longer move her arms/legs, but does recall that it happened approx. 2 years ago. Reports no fevers/chills, chest pain, shortness of breath, abdominal pain, nausea, or vomiting. Physical Exam Constitutional: WD/WN, vitals as above Eyes: EOM intact bilaterally; no conjunctival abnormality ENMT: external ear and nose normal, oropharynx normal Neck: trachea midline, no thyromegaly normal visual inspection Respiratory: normal respiratory effort, lungs clear to auscultation no respiratory distress Cardiovascular: RRR, no murmur, no edema Gastrointestinal (Abdomen): Inspection/Auscultation: abdomen normal to inspection; abdomen not distended Musculoskeletal: Ankle: + surgical incision (Bandaged) Skin: no rashes, warm and dry Neurologic: moves all extremities and awake Psychiatric: Orientation: alert, oriented to person and cooperative Results & Data Results & Data ([facility]) Vital Signs (Past 12 Hours) Vital Signs Temp Pulse Pulse Pulse Resp BP BP 05/27/21 11:39 36.5 C 60 16 106/64 05/27/21 07:05 77 05/27/21 07:00 36.4 C L 58 L 20 144/76 H 05/27/21 03:00 36.6 C 58 L 20 129/71 05/27/21 02:53 57 L Pulse Ox 08/30/21 11:39 94 05/27/21 07:05 05/27/21 07:00 94 05/27/21 03:00 95 05/27/21 02:53 PG Care Time/CCT Total # of Minutes Spent Total Time Spent with Patient: Total time spent is greater than 50% in coordination of care (as documented) at patient's floor/unit and/or counseling patient: Coding Level of Care Code 56860 Subseq Hosp Care Lvl 3 Diagnoses Osteomyelitis M86.9 UTI (urinary tract infection) N39.0 Acute on chronic renal failure N17.9; N18.9 CAD (coronary artery disease) I25.10 Coronary Disease-Associated Artery/Lesion type: [place] artery [place] vs. 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 transplanted heart: [place] heart Associated angina: without angina Qualified Code(s): I25.10 - Atherosclerotic heart disease of [place] coronary artery without angina pectoris (2) Diabetes type 2, controlled Diabetes mellitus skilled nursing insulin use: unspecified clip loading machine feeder insulin use status Diabetes mellitus complication status: without complication Qualified Code(s): E11.9 - Type 2 diabetes mellitus without complications (3) HTN (hypertension) Hypertension type: unspecified Qualified Code(s): I10 - Essential (primary) hypertension (4) Hypothyroid Hypothyroidism type: unspecified Qualified Code(s): E03.9 - Hypothyroidism, unspecified (5) Anemia Anemia type: unspecified type Qualified Code(s): D64.9 - Anemia, unspecified
[2021-05-27] MEDS ORDERED: VANCOMYCIN TROUGH ONE (13:30)
[2021-05-27] MEDS: VANCOMYCIN HCL 750 MG in SODIUM CHLORIDE 0.9% 250 ML IV SCH (14:36)
--- NOTE | 2021-05-27 15:03 | Pharmacy Report ---
Pharmacy Vanc AUC Short Note - Date of Service May 27, 2021 - Assessment & Plan Assessment 75 year old F receiving vancomycin and cefepime for treatment of osteomyelitis. Pertinent microbiologic data includes: foot culture culture growing MRSA vanc VILLA of 2. Day # 10 of antimicrobial therapy. Plan Vancomycin * AUC/VILLA is the preferred PK/PD target for vancomycin * AUC guided dosing is effective and associated with decreased risk of nephrotoxicity compared to traditional trough targets * Trough level of 25.8 mcg/mL is predicted to achieve target AUC/VILLA of 400-600 mg/L.hr and may be associated with a 18 % risk of nephrotoxicity * Due to Trough > 20 though will hold dose and obtain random in morning to provide more pharmacokinetic data. * Suspect it will be okay to start vancomycin 750 mg IV q36 hours tomorrow morning. Pharmacy will continue to follow and will adjust dose/frequency as necessary. Thank you.
--- NOTE | 2021-05-27 15:05 | Pharmacy Report ---
Pharmacy Glycemic Short Note 2 - Date of Service May 27, 2021 - Glycemic Short BSG Results (Last 24 hours): 05/26/21 05/26/21 05/27/21 16:47 20:32 07:25 Glucose POC Glucose 120 H 167 H 84 05/27/21 05/27/21 07:54 11:30 Glucose 71 POC Glucose 111 H OUTPATIENT ANTIDIABETIC REGIMEN: * Lantus 20 units SQ PM * NovoLog with meals * A1c = 6.9% on 04/11/21 ASSESSMENT: 05/25 * BSGs yesterday were [id number] and patient received 62 units of insulin (20 units of basal and 42 units of bolus). * Fasting today is 84 mg/dL. * Since fasting BSGs trending downwards reduce basal by 10%. * Continue Novolog 05/24 * BSGs trended up throughout the day yesterday, 118, 141, 199, and 204 mg/dL * NPO today for I&D - will scale Lantus this evening to allow for decreased dose in case patient remains NPO * Will tighten carb ratio given trend noted above * Continues on broad spectrum antibiotics 05/21 * BSGs well controlled yesterday ranging 92-179 mg/dL * Received 26 units of insulin (20 of which was basal) * Fasting BSG of 111 mg/dL this morning - will continue current Lantus dose * Continues on IV vancomycin/meropenem 05/19 * 75yo T2DM female with excellent outpatient control per recent A1c * Pt is maintained on SQ basal bolus insulin regimen as an outpatient - will continue outpatient basal insulin and use weight based CF/CR for NovoLog since CHO intake inhouse can be different/less than outpatient. * Titrate based on BSG trends to maintain BSGs 110-140 mg/dl range. PLAN FOR INPATIENT GLYCEMIC CONTROL: * Basal insulin * Lantus 18 units SC HS * Bolus insulin - * NovoLog per scale ACHS or Q6hrs while NPO * Goal Range: Low 100 mg/dL - High 140 mg/dL * Correction Factor: 15 mg/dL/unit * Nutritional / Prandial insulin per carb ratio of 1 unit per 5 grams CHO consumed PLAN FOR DISCHARGE: * A1c is in goal range - no changes needed to outpatient insulin regimen at [place].
[2021-05-27] MEDS ORDERED: INSULIN GLARGINE SOLOSTAR 100 UNITS/ML 3 ML PEN SC SCH (21:00)
[2021-05-27] MEDS: SENNA 8.6 MG TAB PO SCH (21:33)
[2021-05-27] MEDS: ARTIFICIAL TEARS OP SCH (21:37)
[2021-05-27] MEDS: ENOXAPARIN INJ 30 MG/0.3 ML SYR SQ SCH (21:37)
[2021-05-28] MEDS: LEVOTHYROXINE SODIUM 75 MCG TABLET PO SCH (05:50)
[2021-05-28 06:49] LABS: Creatinine Clr Calc Pharmacy 36.7 ml/min; Est GFR (African American) 49.6 ml/min; Est GFR (Non-African American) 42.8 ml/min
[2021-05-28] MEDS: INSULIN ASPART 100 UNITS/ML 3 ML PEN SC SCH ×4 (08:17→21:57)
[2021-05-28] MEDS: BACLOFEN 10 MG TAB PO SCH ×3 (08:18→20:13)
[2021-05-28] MEDS: ASCORBIC ACID 500 MG TAB PO SCH ×2 (08:18→20:13)
[2021-05-28] MEDS: CEFEPIME 2,000 MG in SYRINGE 0 ML IV SCH ×2 (08:19→20:20)
[2021-05-28] MEDS: CLOPIDOGREL BISULFATE 75 MG TAB PO SCH (08:20)
[2021-05-28] MEDS: COLLAGENASE OINT 30 GM TUBE TOP SCH (08:21)
[2021-05-28] MEDS: DOCUSATE SODIUM 100 MG CAP PO SCH ×2 (08:22→20:12)
[2021-05-28] MEDS: EZETIMIBE 10 MG TABLET PO SCH (08:22)
[2021-05-28] MEDS: FLUTICASONE PROPIONATE NA SPR 16 GM BTL NAE SCH (08:22)
[2021-05-28] MEDS: FLUCONAZOLE 100 MG TAB PO SCH (08:22)
[2021-05-28] MEDS: GABAPENTIN 100 MG CAP PO SCH ×3 (08:23→20:11)
[2021-05-28] MEDS: MAGNESIUM OXIDE 400 MG TAB PO SCH (08:23)
[2021-05-28] MEDS: METOPROLOL TARTRATE 25 MG TAB PO SCH ×2 (08:24→20:10)
[2021-05-28] MEDS: MULTIVITAMIN TAB PO SCH (08:24)
[2021-05-28] MEDS: POLYETHYLENE (MIRALAX) 17 GM PACK PO SCH (08:24)
[2021-05-28] MEDS: SACCHAROMYCES BOULARDII 250 MG CAP PO SCH ×2 (08:24→20:08)
--- NOTE | 2021-05-28 09:26 | Pharmacy Report ---
Pharmacy Vanc AUC Short Note - Date of Service May 28, 2021 - Assessment & Plan Assessment * 75 year old F receiving cefepime and vancomycin for treatment of sepsis/osteomyelitis. * Pertinent microbiologic data includes: foot culture growing Pseudomonas (sensitive to cefepime) and MRSA (vanco VILLA = 2 mcg/mL) * Random level of 21.4 mcg/mL this AM. Per [facility], anticiapted trough of 17 mcg/mL at around 1200 - will resume vancomycin then * AUC/VILLA is the preferred PK/PD target for vancomycin * AUC guided dosing is effective and associated with decreased risk of nephrotoxicity compared to traditional trough targets * Vancomycin 500 mg IV q24h predicted to achieve target AUC/VILLA of 400-600 mg/L hr however continuing to check levels will be important to determine fit * q24h interval preferred if vancomycin is to continue as an outpatient (which is possible for osteomyelitis). BKA being considered Plan * Decrease dose of vancomycin to 500 mg IV x1 * Trough or random level ordered for: 05/29 @ 1200 Pharmacy will continue to follow and will adjust dose/frequency as necessary. Thank you.
[2021-05-28] MEDS ORDERED: VANCOMYCIN HCL 500 MG in 0.9 % SODIUM CHLORIDE 100 ML IV ONE (12:00)
--- NOTE | 2021-05-28 12:01 | Pharmacy Report ---
Pharmacy Glycemic Short Note 2 - Date of Service May 28, 2021 - Glycemic Short BSG Results (Last 24 hours): 05/27/21 05/27/21 05/28/21 16:30 20:06 07:10 POC Glucose 137 H 94 65 L* 05/28/21 05/28/21 05/28/21 07:12 07:33 11:02 POC Glucose 69 L* 85 106 H OUTPATIENT ANTIDIABETIC REGIMEN: * Lantus 20 units SQ PM * NovoLog with meals * A1c = 6.9% on 04/11/21 ASSESSMENT: 05/26 * Stressors stable * AM fasting BSG with noted mild hypoglycemia. Lantus reduced by ~20% * Post-prandial BSG's yesterday and today at lunch OK but some below goal range - very slightly loosen Novolog for now. May consider tightening again if post-prandial BSG's increase above goal 05/25 * BSGs yesterday were [id number] and patient received 62 units of insulin (20 units of basal and 42 units of bolus). * Fasting today is 84 mg/dL. * Since fasting BSGs trending downwards reduce basal by 10%. * Continue Novolog 05/24 * BSGs trended up throughout the day yesterday, 118, 141, 199, and 204 mg/dL * NPO today for I&D - will scale Lantus this evening to allow for decreased dose in case patient remains NPO * Will tighten carb ratio given trend noted above * Continues on broad spectrum antibiotics 05/21 * BSGs well controlled yesterday ranging 92-179 mg/dL * Received 26 units of insulin (20 of which was basal) * Fasting BSG of 111 mg/dL this morning - will continue current Lantus dose * Continues on IV vancomycin/meropenem 05/19 * 75yo T2DM female with excellent outpatient control per recent A1c * Pt is maintained on SQ basal bolus insulin regimen as an outpatient - will continue outpatient basal insulin and use weight based CF/CR for NovoLog since CHO intake inhouse can be different/less than outpatient. * Titrate based on BSG trends to maintain BSGs 110-140 mg/dl range. PLAN FOR INPATIENT GLYCEMIC CONTROL: * Basal insulin * Lantus 15 units SC HS * Bolus insulin - * NovoLog per scale ACHS or Q6hrs while NPO * Goal Range: Low 100 mg/dL - High 140 mg/dL * Correction Factor: 18 mg/dL/unit * Nutritional / Prandial insulin per carb ratio of 1 unit per 6 grams CHO consumed PLAN FOR DISCHARGE: * A1c is in goal range - no changes needed to outpatient insulin regimen at [place].
--- NOTE | 2021-05-28 13:22 | Hospitalist Progress Note ---
Date of Service May 28, 2021 Assessment & Plan (1) Osteomyelitis: Plan: Right foot calcaneal osteomyelitis with gas. Source of sepsis. - S/p debridement, right partial calcanectomy, and debridement septic Achilles tendon with Dr. Maher (Ortho) on 05/24/2021. - ID consulted, though I don't see note in chart yet. Recs were sent to prior hospitalist and are in Dr. Anton's note from 05/26/2021. * 6 weeks abx from 05/19 (end date: 06/29/2021) * -> Vanc + cefepime for MRSA and Pseudomonas in surgical cultures. - Stop fluconazole as this was only in superficial skin culture and urine culture in 01/2021. (2) UTI (urinary tract infection): Plan: Ruled out. [place] has been exchanged here on 05/19/21. (3) Acute on chronic renal failure: Plan: Acute component likely secondary to sepsis; underlying stage III CKD. Baseline Cr. ~1.0 - 1.1. - Cr presently at baseline. (4) CAD (coronary artery disease): Plan: No acute issues. - Continue Plavix, ezetimibe, & metoprolol (5) Diabetes type 2, controlled: Plan: A1c was 6.9% last month. Glucose fairly well controlled. - Pharmacy glycemic consulted -> Blood sugars low this morning. Adjusted by pharmacy. (6) HTN (hypertension): Plan: Blood pressure low upon admission. Presently 125/65. - Continue beta-regine (7) Hypothyroid: Plan: TSH 157 & FT4 0.24 this admission. Uncontrolled hypothyroidismdoes not appear to be in myxedema coma. Has a h/o thyroidectomy and levothyroxine is no longer on her home medication list at previous dose of 125 mcg daily-question if she has been receiving this medication since last hospitalization? - Started back on levothyroxine 50 mcg every other day for several days and then increased to 50 mcg daily on 05/22 - Now levothyroxine 75 mcg PO daily (8) Quadriplegia: Plan: Quadriplegia developed following elective cervical spine surgery in 09/2019 at [facility]. Contractures evident in all 4 limbs. Limited use of left shoulder only. Continue baclofen 10 mg p.o. at bedtime, 5 mg p.o. twice daily for spasms (9) Anemia: Plan: Macrocytic. B12, folate normal. No signs of active bleeding. 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 - Monitor -> Stable today at 10.1. (10) Sacral wound: Plan: Stage IV pressure ulcer, sacral wound. Wound care consulted - recommended surgery consult. On 05/22/2021, surgery recommended Santyl/chemical debridement, no surgery. Patient with history of pressure ulcers on ankles bilaterally, and sacral wound-was to have wound vac placed on sacral decub possibly as per Wound Care but edges too macerated at last visit - Continue home Vit C, MVI - Continue to offload pressure, air mattress (11) Adnexal cyst: Plan: 6 cm septated, stable from previous and this is documented in previous records and has been discussed with patient. - Follow as outpt with [employer] [employer] (12) DVT prophylaxis: Plan: Lovenox 30 mg SQ daily Admission and Anticipated Discharge Date Admission Date: May 18, 2021 Subjective More tired today and somewhat confused. She reports no fevers/chills, chest pain, shortness of breath, abdominal pain, nausea, or vomiting, but also does not seem to follow my instructions or really grasp when we are talking about her PICC line. She believes she is back in [facility] when asked where she is. She does know her name when asked. Physical Exam Constitutional: WD/WN, vitals as above Eyes: EOM intact bilaterally; no conjunctival abnormality ENMT: external ear and nose normal, oropharynx normal Neck: trachea midline, no thyromegaly normal visual inspection Respiratory: normal respiratory effort, lungs clear to auscultation no respiratory distress Cardiovascular: RRR, no murmur, no edema Gastrointestinal (Abdomen): Inspection/Auscultation: abdomen normal to inspection; abdomen not distended Musculoskeletal: Ankle: + surgical incision (Bandaged) Skin: no rashes, warm and dry Neurologic: moves all extremities and awake Psychiatric: Orientation: oriented to person and cooperative; + not alert, + not oriented to place and + not oriented to time Results & Data Results & Data ([facility]) Vital Signs (Past 12 Hours) Vital Signs Temp Pulse Pulse Pulse Resp BP Pulse Ox 05/28/21 11:00 36.6 C 64 20 125/60 96 05/28/21 09:57 57 L 05/28/21 07:00 36.4 C L 61 18 94/56 L 92 05/28/21 02:56 36.7 C 68 18 119/71 93 PG Care Time/CCT Total # of Minutes Spent Total Time Spent with Patient: Total time spent is greater than 50% in coordination of care (as documented) at patient's floor/unit and/or counseling patient: Coding Level of Care Code 61020 Subseq Hosp Care Lvl 3 Diagnoses Osteomyelitis M86.9 UTI (urinary tract infection) N39.0 Acute on chronic renal failure N17.9; N18.9 CAD (coronary artery disease) I25.10 Coronary Disease-Associated Artery/Lesion type: [place] artery [place] vs. transplanted heart: [place] heart Associated angina: without angina Diabetes type 2, controlled E11.9 Diabetes mellitus nursing home insulin use: unspecified nursing home insulin use status Diabetes mellitus complication status: without complication HTN (hypertension) I10 Hypertension type: unspecified Hypothyroid E03.9 Hypothyroidism type: unspecified Quadriplegia G82.50 Anemia D64.9 Anemia type: unspecified type Sacral wound S31.000A Adnexal cyst N94.9 DVT prophylaxis Z29.9 (1) CAD (coronary artery disease) Coronary Disease-Associated Artery/Lesion type: [place] artery [place] vs. 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
[2021-05-28] MEDS: INSULIN GLARGINE SOLOSTAR 100 UNITS/ML 3 ML PEN SC SCH (19:53)
[2021-05-28] MEDS: SENNA 8.6 MG TAB PO SCH (20:08)
[2021-05-28] MEDS: ARTIFICIAL TEARS OP SCH (20:14)
[2021-05-28] MEDS: ENOXAPARIN INJ 30 MG/0.3 ML SYR SQ SCH (22:03)
[2021-05-29] MEDS: LEVOTHYROXINE SODIUM 75 MCG TABLET PO SCH (06:13)
[2021-05-29 07:22] LABS: Hematocrit (blood only) 29.5 % (37-47); Hemoglobin 9.5 g/dL (12.0-16.0); Mean Corpuscular Hemoglobin 35.3 pg (25-34); Mean Corpuscular Hgb Conc 32.2 g/dL (32-36); Mean Corpuscular Volume 109.7 fL (80-100); Mean Platelet Volume 9.9 fL (7.4-10.4); Platelet Count 575 K/uL (130-400); RDW Coefficient of Variation 15.3 % (11.5-14.5); RDW Standard Deviation 60.3 fL (36.4-46.3); Red Blood Count 2.69 M/uL (4.2-5.4); White Blood Count 12.23 K/uL (4.8-10.8)
[2021-05-29 08:01] LABS: BUN Creatinine Ratio 26.6 (10-20); Calcium 8.7 mg/dl (8.5-10.1); Creatinine Clr Calc Pharmacy 35.8 ml/min; Est GFR (African American) 48.1 ml/min; Est GFR (Non-African American) 41.5 ml/min; Magnesium 2.7 mg/dl (1.8-2.4); Potassium 4.5 mmol/L (3.5-5.1)
[2021-05-29] MEDS: FLUTICASONE PROPIONATE NA SPR 16 GM BTL NAE SCH (08:14)
[2021-05-29] MEDS: CEFEPIME 2,000 MG in SYRINGE 0 ML IV SCH ×2 (08:14→20:11)
[2021-05-29] MEDS: CLOPIDOGREL BISULFATE 75 MG TAB PO SCH (08:15)
[2021-05-29] MEDS: GABAPENTIN 100 MG CAP PO SCH ×3 (08:15→20:10)
[2021-05-29] MEDS: MULTIVITAMIN TAB PO SCH (08:15)
[2021-05-29] MEDS: POLYETHYLENE (MIRALAX) 17 GM PACK PO SCH (08:15)
[2021-05-29] MEDS: INSULIN ASPART 100 UNITS/ML 3 ML PEN SC SCH ×4 (08:15→20:29)
[2021-05-29] MEDS: FLUCONAZOLE 100 MG TAB PO SCH (08:15)
[2021-05-29] MEDS: ASCORBIC ACID 500 MG TAB PO SCH ×2 (08:15→20:09)
[2021-05-29] MEDS: SACCHAROMYCES BOULARDII 250 MG CAP PO SCH ×2 (08:15→20:09)
[2021-05-29] MEDS: MAGNESIUM OXIDE 400 MG TAB PO SCH (08:15)
[2021-05-29] MEDS: EZETIMIBE 10 MG TABLET PO SCH (08:15)
[2021-05-29] MEDS: BACLOFEN 10 MG TAB PO SCH ×3 (08:15→20:10)
[2021-05-29] MEDS: METOPROLOL TARTRATE 25 MG TAB PO SCH ×2 (08:15→20:10)
[2021-05-29] MEDS: DOCUSATE SODIUM 100 MG CAP PO SCH ×2 (08:15→20:11)
[2021-05-29] MEDS: COLLAGENASE OINT 30 GM TUBE TOP SCH (08:16)
--- NOTE | 2021-05-29 13:30 | Pharmacy Report ---
Pharmacy Abx Dose Short Note - Date of Service May 29, 2021 - Assessment & Plan Assessment * 75 year old F receiving cefepime and vancomycin (day 12) for treatment of sepsis/osteomyelitis. * Pertinent microbiologic data includes: foot culture growing Pseudomonas (sensitive to cefepime) and MRSA (vanco VILLA = 1 mcg/mL) per turbidity test * Random level of 18.6 mcg/mL today @ 1200, 24 hours after last dose. * AUC/VILLA is the preferred PK/PD target for vancomycin * AUC guided dosing is effective and associated with decreased risk of nephrotoxicity compared to traditional trough targets * Vancomycin 500 mg IV q24h predicted to achieve target AUC/VILLA of 400-600 mg/L hr * q24h interval preferred for 6 weeks of IV antibiotic therapy Plan * Vancomycin 500mg IV Q24H * Further monitoring at [facility], likely discharge tomorrow Pharmacy will continue to follow and will adjust dose/frequency as necessary. Thank you.
[2021-05-29] MEDS: VANCOMYCIN HCL 500 MG in 0.9 % SODIUM CHLORIDE 100 ML IV SCH (13:46)
--- NOTE | 2021-05-29 14:45 | Hospitalist Progress Note ---
Date of Service May 29, 2021 Assessment & Plan (1) Osteomyelitis: Plan: Right foot calcaneal osteomyelitis with gas. Source of sepsis. - S/p debridement, right partial calcanectomy, and debridement septic Achilles tendon with Dr. Maher (Ortho) on 05/24/2021. - ID consulted, though I don't see note in chart yet. Recs were sent to prior hospitalist and are in Dr. Anton's note from 05/26/2021. * 6 weeks abx from 05/19 (end date: 06/29/2021) * -> Vanc + cefepime for MRSA and Pseudomonas in surgical cultures. - Stop fluconazole as this was only in superficial skin culture and urine culture in 01/2021. (2) UTI (urinary tract infection): Plan: Ruled out. [place] has been exchanged here on 05/19/21. (3) Acute on chronic renal failure: Plan: Acute component likely secondary to sepsis; underlying stage III CKD. Baseline Cr. ~1.0 - 1.1. - Cr presently at baseline. (4) CAD (coronary artery disease): Plan: No acute issues. - Continue Plavix, ezetimibe, & metoprolol (5) Diabetes type 2, controlled: Plan: A1c was 6.9% last month. Glucose fairly well controlled. - Pharmacy glycemic consulted -> Blood sugars low on 05/28. Adjusted by pharmacy. Better today. (6) HTN (hypertension): Plan: Blood pressure low upon admission. Presently 100/65. - Continue beta-regine (7) Hypothyroid: Plan: TSH 157 & FT4 0.24 this admission. Uncontrolled hypothyroidismdoes not appear to be in myxedema coma. Has a h/o thyroidectomy and levothyroxine is no longer on her home medication list at previous dose of 125 mcg daily-question if she has been receiving this medication since last hospitalization? - Started back on levothyroxine 50 mcg every other day for several days and then increased to 50 mcg daily on 05/22 - Now levothyroxine 75 mcg PO daily (8) Quadriplegia: Plan: Quadriplegia developed following elective cervical spine surgery in 09/2019 at [facility]. Contractures evident in all 4 limbs. Limited use of left shoulder only. Continue baclofen 10 mg p.o. at bedtime, 5 mg p.o. twice daily for spasms (9) Anemia: Plan: Macrocytic. B12, folate normal. No signs of active bleeding. 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 - Monitor -> Stable today at 9.5. (10) Sacral wound: Plan: Stage IV pressure ulcer, sacral wound. Wound care consulted - recommended surgery consult. On 05/22/2021, surgery recommended Santyl/chemical debridement, no surgery. Patient with history of pressure ulcers on ankles bilaterally, and sacral wound-was to have wound vac placed on sacral decub possibly as per Wound Care but edges too macerated at last visit - Continue home Vit C, MVI - Continue to offload pressure, air mattress (11) Adnexal cyst: Plan: 6 cm septated, stable from previous and this is documented in previous records and has been discussed with patient. - Follow as outpt with [employer] (12) DVT prophylaxis: Plan: Lovenox 30 mg SQ daily Admission and Anticipated Discharge Date Admission Date: May 18, 2021 Subjective More awake today. Reports she is tired and hurts. When asked about location, she notes her bottom, but otherwise, no areas. Reports no fevers/chills, chest pain, shortness of breath, abdominal pain, nausea, or vomiting. Physical Exam Constitutional: WD/WN, vitals as above Eyes: EOM intact bilaterally; no conjunctival abnormality ENMT: external ear and nose normal, oropharynx normal Neck: trachea midline, no thyromegaly normal visual inspection Respiratory: normal respiratory effort, lungs clear to auscultation no respiratory distress Cardiovascular: RRR, no murmur, no edema Gastrointestinal (Abdomen): Inspection/Auscultation: abdomen normal to inspection; abdomen not distended Musculoskeletal: Ankle: + surgical incision (Bandaged) Skin: no rashes, warm and dry Neurologic: moves all extremities and awake Psychiatric: Orientation: alert, oriented to person, oriented to place and cooperative Results & Data Results & Data ([facility]) Vital Signs (Past 12 Hours) Vital Signs Temp Pulse Resp BP Pulse Ox 05/29/21 11:44 36.5 C 66 20 99/61 L 93 05/29/21 07:34 36.9 C 65 20 112/58 L 96 PG Care Time/CCT Total # of Minutes Spent Total Time Spent with Patient: Total time spent is greater than 50% in coordination of care (as documented) at patient's floor/unit and/or counseling patient: Coding Level of Care Code 35712 Subseq Hosp Care Lvl 2 Diagnoses Osteomyelitis M86.9 UTI (urinary tract infection) N39.0 Acute on chronic renal failure N17.9; N18.9 CAD (coronary artery disease) I25.10 Coronary Disease-Associated Artery/Lesion type: [place] artery [place] vs. 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 transplanted heart: [place] heart Associated angina: without angina Qualified Code(s): I25.10 - Atherosclerotic heart disease of [place] coronary artery without angina pectoris (2) Diabetes type 2, controlled Diabetes mellitus jail insulin use: unspecified jail insulin use status Diabetes mellitus complication status: without complication Qualified Code(s): E11.9 - Type 2 diabetes mellitus without complications (3) HTN (hypertension) Hypertension type: unspecified Qualified Code(s): I10 - Essential (primary) hypertension (4) Hypothyroid Hypothyroidism type: unspecified Qualified Code(s): E03.9 - Hypothyroidism, unspecified (5) Anemia Anemia type: unspecified type Qualified Code(s): D64.9 - Anemia, unspecified
[2021-05-29] MEDS: SENNA 8.6 MG TAB PO SCH (20:09)
[2021-05-29] MEDS: ARTIFICIAL TEARS OP SCH (20:12)
[2021-05-29] MEDS: INSULIN GLARGINE SOLOSTAR 100 UNITS/ML 3 ML PEN SC SCH (20:30)
[2021-05-29] MEDS: ENOXAPARIN INJ 30 MG/0.3 ML SYR SQ SCH (22:35)
[2021-05-30] MEDS: LEVOTHYROXINE SODIUM 75 MCG TABLET PO SCH (05:34)
[2021-05-30 05:54] LABS: Hematocrit (blood only) 28.5 % (37-47); Mean Corpuscular Hemoglobin 35.2 pg (25-34); Mean Corpuscular Hgb Conc 31.6 g/dL (32-36); Mean Corpuscular Volume 111.3 fL (80-100); Platelet Count 546 K/uL (130-400); RDW Coefficient of Variation 15.5 % (11.5-14.5); RDW Standard Deviation 62.5 fL (36.4-46.3); Red Blood Count 2.56 M/uL (4.2-5.4); White Blood Count 12.26 K/uL (4.8-10.8)
[2021-05-30 06:22] LABS: BUN Creatinine Ratio 29.3 (10-20); Calcium 8.8 mg/dl (8.5-10.1); Creatinine Clr Calc Pharmacy 34.4 ml/min; Est GFR (African American) 45.9 ml/min; Est GFR (Non-African American) 39.6 ml/min; Magnesium 2.7 mg/dl (1.8-2.4); Potassium 4.5 mmol/L (3.5-5.1)
[2021-05-30] MEDS: INSULIN ASPART 100 UNITS/ML 3 ML PEN SC SCH ×2 (08:45→12:07)
[2021-05-30] MEDS: POLYETHYLENE (MIRALAX) 17 GM PACK PO SCH (08:46)
[2021-05-30] MEDS: BACLOFEN 10 MG TAB PO SCH ×2 (08:46→13:26)
[2021-05-30] MEDS: CEFEPIME 2,000 MG in SYRINGE 0 ML IV SCH (08:46)
[2021-05-30] MEDS: MAGNESIUM OXIDE 400 MG TAB PO SCH (08:47)
[2021-05-30] MEDS: ASCORBIC ACID 500 MG TAB PO SCH (08:47)
[2021-05-30] MEDS: MULTIVITAMIN TAB PO SCH (08:47)
[2021-05-30] MEDS: GABAPENTIN 100 MG CAP PO SCH ×2 (08:47→13:26)
[2021-05-30] MEDS: COLLAGENASE OINT 30 GM TUBE TOP SCH (08:47)
[2021-05-30] MEDS: SACCHAROMYCES BOULARDII 250 MG CAP PO SCH (08:47)
[2021-05-30] MEDS: EZETIMIBE 10 MG TABLET PO SCH (08:47)
[2021-05-30] MEDS: FLUTICASONE PROPIONATE NA SPR 16 GM BTL NAE SCH (08:47)
[2021-05-30] MEDS: CLOPIDOGREL BISULFATE 75 MG TAB PO SCH (08:47)
[2021-05-30] MEDS: DOCUSATE SODIUM 100 MG CAP PO SCH (08:47)
[2021-05-30] MEDS: METOPROLOL TARTRATE 25 MG TAB PO SCH (08:47)
[2021-05-30 11:42] VITALS: BP 91/43; PULSE 57; TEMP 97.3; O2SAT 95
[2021-05-30] MEDS: VANCOMYCIN HCL 500 MG in 0.9 % SODIUM CHLORIDE 100 ML IV SCH (12:08)
--- NOTE | 2021-05-30 16:52 | Discharge Summary ---
Date of Service May 30, 2021 Admission HPI Per Admitting Provider Anette Antonio is a 75-year-old female with a history of quadriplegia, hypertension, hypothyroid, type 2 diabetes, CAD, and past UTIs which included ESBL and MRSA who presented with fever and altered mental status from [facility] as a code sepsis and who is admitted for urosepsis. Subjective is limited by somnolence, and reduced cognitive status. Per report patient was admitted from [facility] with altered mental status and fever. She has quadriplegia following elective cervical surgery with incomplete quadriplegia immediately following procedure, and nonresolution following second surgery. At baseline she has limited flexion of her left arm at the shoulder, otherwise does not use intrinsic muscles of the right hand or bilateral lower extremities. Discussed care with her daughter Anna who reports she had been feeling 'overall poor' for 2-3 days. Today she was not answering questions normally (at baseline has NO dementia or AMS) and had a temperature which prompted her to be transferred to [facility]. Also has spastic muscle spasms at baseline which were absent day of admission. 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 Also risk of aspiration PNA. Hx of bed sores. Medical History: Reviewed Medications: Reviewed Surgical History: Reviewed Allergies: Reviewed Social History: No tobacco, etoh, or recreational drug use. Code Status: Full Code. Daughter Anna is POA, updated and case discussed as above. Principal Diagnosis Right heel infection Discharge Exam Constitutional WD/WN, vitals as above Eyes EOM intact bilaterally; no conjunctival abnormality ENMT external ear and nose normal, oropharynx normal Neck trachea midline, no thyromegaly normal visual inspection Respiratory normal respiratory effort, lungs clear to auscultation no respiratory distress Cardiovascular RRR, no murmur, no edema Gastrointestinal (Abdomen) Inspection/Auscultation: abdomen normal to inspection; abdomen not distended Musculoskeletal Ankle: + surgical incision (Bandaged) Skin no rashes, warm and dry Neurologic moves all extremities and awake Psychiatric Orientation: alert, oriented to person, oriented to place and cooperative Discharge Data Allergies Allergy/AdvReac Type Severity Reaction Status Date / Time acesulfame Allergy Unknown Unknown Verified 05/18/21 16:31 aspartame Allergy Unknown Unknown Verified 05/18/21 16:31 [From Nutrasweet Aspartame] saccharin Allergy Unknown Unknown Verified 05/18/21 16:31 sucralose Allergy Unknown Unknown Verified 05/18/21 16:31 mold Allergy Unknown Verified 05/18/21 16:31 pollen extracts Allergy Unknown Verified 05/18/21 16:31 Consultations 05/18/21 18:24 ED Decision to Admit Stat 05/19/21 10:31 Consult Orthopedic Surgery Stat 05/20/21 10:09 Consult General Surgery Routine 05/22/21 07:39 Consult Podiatry Routine 05/23/21 15:19 Consult Infectious Diseases Routine Procedures Performed Operation Date: 05/24/21 12:55 Actual Procedures p Irrigation and Debridement of Right Heel Ulcer Abcess 5.5cm x 5cm x 1cm, Partial Calcanectomy, Application of Stimulan Beads, Debridement of Achilles Tendon, Excisional Debridement of Skin, Subcutaenous Fat, Periosteum and Fascia(Right) - Harry Maher, Ordered Studies 05/18/21 16:47 CT abd pelvis wo con Stat CT head/brain wo con Stat 05/19/21 08:08 CT foot RT wo con Urgent 05/20/21 14:18 MR ankle RT wo/w con Routine 05/20/21 14:19 US arterial duplex LE RT Routine Hospital Course (1) Osteomyelitis: Right foot calcaneal osteomyelitis with gas. Source of sepsis. - S/p debridement, right partial calcanectomy, and debridement septic Achilles tendon with Dr. Maher (Ortho) on 05/24/2021. - ID consulted, though I don't see note in chart yet. Recs were sent to prior hospitalist and are in Dr. Anton's note from 05/26/2021. * 6 weeks abx from 05/19 (end date: 06/29/2021) * Vancomycin 500 mg IV daily for MRSA * Cefepime 2 g IV Q12h for Pseudomonas. * Weekly CBC, CMP, CRP, ESR -> Will follow up with Dr. Maher in 10 days. (2) UTI (urinary tract infection): Ruled out. [place] has been exchanged here on 05/19/21. - Discharged with [place] in place (3) Acute on chronic renal failure: Acute component likely secondary to sepsis; underlying stage III CKD. Baseline Cr. ~1.0 - 1.1. - Cr presently mildly higher than baseline at 1.3, but stable over several days. - Monitor Cr while on abx. (4) CAD (coronary artery disease): No acute issues. - Continue Plavix, ezetimibe, & metoprolol (5) Diabetes type 2, controlled: A1c was 6.9% last month. Glucose fairly well controlled. - Pharmacy glycemic consulted -> Blood sugars low on 05/28. Adjusted by pharm acy. Better today. - Return to normal dosing at [facility]. (6) HTN (hypertension): Blood pressure low upon admission. Presently 100/65. - Continue beta-regine (7) Hypothyroid: TSH 157 & FT4 0.24 this admission. Uncontrolled hypothyroidismdoes not appear to be in myxedema coma. Has a h/o thyroidectomy and levothyroxine is no longer on her home medication list at previous dose of 125 mcg daily-question if she has been receiving this medication since last hospitalization? - Return to normal dosing of 125 mcg on discharge. (8) Quadriplegia: Quadriplegia developed following elective cervical spine surgery in 09/2019 at [facility]. Contractures evident in all 4 limbs. Limited use of left shoulder only. Continue baclofen 10 mg p.o. at bedtime, 5 mg p.o. twice daily for spasms (9) Anemia: Macrocytic. B12, folate normal. No signs of active bleeding. 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 - Monitor -> Stable today at 9.0. (10) Sacral wound: Stage IV pressure ulcer, sacral wound. Wound care consulted - recommended surgery consult. On 05/22/2021, surgery recommended Santyl/chemical debridement, no surgery. Patient with history of pressure ulcers on ankles bilaterally, and sacral wound-was to have wound vac placed on sacral decub possibly as per Wound Care but edges too macerated at last visit - Continue home Vit C, MVI - Continue to offload pressure, air mattress -> Of note, her fluconazole 200 mg PO daily is for this wound. ID recommended 6 months of fluconazole which would be July 2011. (11) Adnexal cyst: 6 cm septated, stable from previous and this is documented in previous records and has been discussed with patient. - Follow as outpt with [facility] (12) DVT prophylaxis: Lovenox 30 mg SQ daily Total Time Total Time Spent Total Time Spent (In Minutes): 35 Discharge Plan Discharge Items Patient Disposition: Transfer Shelter Fac Reason For Visit: Right heel infection Discharge Diagnosis: Right heel infection Activity: Resume your previous activity Non-emergency contact: Primary Care Provider and Surgeon Call non-emergency contact if: your symptoms worsen Follow-up/Referrals: Harry Maher, [Surgeon] - (Please follow up with Dr. Maher in 1-2 weeks.) [facility] [Primary Care Provider] - Diet: Carb Consistent or DM2 and Heart Healthy Diet Texture: Dental soft (bite-sized) Addtl Attending Provider Instructions: Ms. Antonio was admitted to the hospital with a right heel infection. She underwent I&D with Dr. Maher. She was seen by ID. That note is being delayed in uploading, but the ID doc recommended 6 weeks of IV antibiotics. She will be on vanc/cefepime for 6 weeks (End date: 06/29/2021). She will need weekly CBC, CMP, CRP, and ESR while on the antibiotics. Her dosing of the vancomycin is 500 mg IV daily. She should probably get a vancomycin trough in 2-3 days (weekend vs. Thursday) to be sure she's staying stable. Cefepime dosing is 2g IV Q12h. Addtl Manager Technology Provider Instructions: Continue strict heel precautions daily Daily dressing changes. Use adaptic, 4x4's, ABD, kerlix wrap, and loosely wrapped gricelda for dressing. It is normal to have serous drainage on the dressings secondary to the Stimulan (antibiotic beads) beads there were placed inside the wound. Please call if drainage has increased or changed in it's consitency (thick or p urulent compared to serous). Please follow up with Dr Maher or his PA Carlo Gonzalez in 10 days. [phone] Pending Studies at Discharge: No Stand-Alone Forms: My [facility] Skilled Items Patient informed of condition?: Yes DNR: No Discharge Level of Care: Skilled Communicable Disease: Yes Discharge Prognosis: Stable Lines: PICC Urinary Catheter: Yes Medications and DC Order Prescriptions: New clopidogrel 75 mg Tablet 75 mg PO QAM Qty: 0 RF: 0 acetaminophen 325 mg Tablet 650 mg PO Q4H PRN (Reason: pain) Qty: 0 RF: 0 levothyroxine 125 mcg capsule 125 mcg PO DAILY Qty: 0 RF: 0 Vancomycin Consult Active [Consult] 1 dose Not Applicable UD PRNQty: 0 RF: 0 cefepime 2 gram recon soln 2 g IV Q12H Qty: 1 RF: 0 Continued Saccharomyces boulardii [Florastor] 250 mg capsule 250 mg PO BID RF: 0 Santyl 250 unit/gram ointment 1 applic topical DAILY 14 Days Qty: 90 RF: 1 bismuth subsalicylate [Pepto-Bismol] 262 mg/15 mL suspension 524 mg PO QID RF: 0 Fleet Enema Extra 19-7 gram/197 mL enema 118 ml OR DAILY PRN (Reason: Constipation) RF: 0 benzonatate 200 mg capsule 200 mg PO TID RF: 0 multivitamin Tablet 1 tab PO DAILY RF: 0 Lantus U-100 Insulin 100 unit/mL solution 20 unit SUBCUT QPM RF: 0 polyethylene glycol 3350 [Miralax] 17 gram Powder In Packet 17 g PO DAILY RF: 0 baclofen 10 mg tablet 10 mg PO HS RF: 0 insulin aspart U-100 [Novolog U-100 Insulin aspart] 100 unit/mL solution 0 sliding scale dose subcut UD RF: 0 bisacodyl [Dulcolax (bisacodyl)] 10 mg Suppository 10 mg OR UD PRN (Reason: Constipation) RF: 0 protein Powder 1 ea PO TID Qty: 0 RF: 0 gabapentin 100 mg capsule 100 mg PO TID RF: 0 ezetimibe [Zetia] 10 mg Tablet 10 mg PO DAILY RF: 0 baclofen 5 mg tablet 5 mg PO BID RF: 0 magnesium oxide 400 mg magnesium Tablet 400 mg PO DAILY RF: 0 acetaminophen [Tylenol] 325 mg Tablet 650 mg PO Q6 PRN (Reason: Fever Or Pain) RF: 0 ondansetron HCl [Zofran] 4 mg Tablet 4 mg PO Q6H PRN (Reason: Nausea) RF: 0 ascorbic acid (vitamin C) [Vitamin C] 500 mg Tablet 500 mg PO BID RF: 0 albuterol sulfate [Proventil HFA] 90 mcg/actuation Hfa Aerosol Inhaler 2 puff INHALATION Q4 PRN (Reason: Shortness Of Breath Or Wheezing) RF: 0 Systane Gel 0.4-0.3 % Drops,Gel 1 drp OPHTHALMIC (EYE) QPM RF: 0 fluconazole 100 mg Tablet 200 mg PO DAILY 30 Days Qty: 60 RF: 5 fluticasone propionate 50 mcg/actuation spray,suspension 2 spray INTRANASAL DAILY RF: 0 Changed metoprolol tartrate 50 mg tablet 25 mg PO Q12 Qty: 0 RF: 0 Discharge Orders: Discharge Order (Routine); Ordered 05/30/21 Ordered By: Juan Mcdonald Admission Data Admit Date/Time: 05/18/21 18:32 Attending Provider: Juan Mcdonald Admit Provider: David Lofton [facility] Other Providers: [facility] ; David Lofton ; Juan Carlos Page ; Sunita Carolina ; Nick Holly ; Omer Carter ; David Parrish ; Silas Rodríguez I. ; Enio Newman II ; Carly Wiggins ; Mike Heard Other Interventions: Discharge Summary Assessment (RN) Last Done: 05/30/21 14:08 Coding Level of Care Code D/C DAY MANAGEMENT >30 MINS Diagnoses Osteomyelitis M86.9 UTI (urinary tract infection) N39.0 Acute on chronic renal failure N17.9; N18.9 CAD (coronary artery disease) I25.10 Coronary Disease-Associated Artery/Lesion type: [place] artery [place] vs. 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
== END 2021-05-30 15:10 | DRG 853 ==
LOC: ED 14:58 → 2N 18:32 → SUATTDRO 18:32 → 2N 21:42

== ENCOUNTER 2021-06-13 09:46 | Inpatient (IN) ==
[~2021-06-13 09:46] MED LIST: ETOMIDATE 2 MG/ML 20 ML VIAL IV ONE; SUCCINYLCHOLINE CHLORIDE 20 MG/ML 10 ML VIAL IV ONE
[2021-06-13] MEDS ORDERED: RAPID SEQUENCE INDUCTION BAG ONE (09:51)
[2021-06-13] MEDS ORDERED: ALBUT/IPRATROP 3MG/0.5MG NEB 3 ML VIAL ONE (09:58)
[2021-06-13] MEDS ORDERED: ALBUT/IPRATROP 3MG/0.5MG NEB 3 ML VIAL NEB STA (10:02)
[2021-06-13] MEDS ORDERED: SODIUM CHLORIDE 0.9% 500 ML IV ONE ×2 (10:14→11:01)
[2021-06-13 10:15] LABS: Basophils # (auto) 0.06 K/uL (0-0.2); Basophils % (auto) 0.3 %; Eosinophils # (auto) 0.31 K/uL (0-0.5); Eosinophils % (auto) 1.5 %; Hematocrit (blood only) 33.1 % (37-47); Hemoglobin 10.5 g/dL (12.0-16.0); Immature Granulocytes # (auto) 0.14 K/uL (0.00-0.02); Immature Granulocytes % (auto) 0.7 %; Lymphocytes # (auto) 1.14 K/uL (1.2-3.4); Lymphocytes % (auto) 5.4 %; Mean Corpuscular Hemoglobin 34.2 pg (25-34); Mean Corpuscular Hgb Conc 31.7 g/dL (32-36); Mean Corpuscular Volume 107.8 fL (80-100); Mean Platelet Volume 10.4 fL (7.4-10.4); Monocytes % (auto) 4.3 %; Neutrophils # (auto) 18.51 K/uL (1.4-6.5); Neutrophils % (auto) 87.8 %; Platelet Count 662 K/uL (130-400); RDW Coefficient of Variation 15.1 % (11.5-14.5); RDW Standard Deviation 59.3 fL (36.4-46.3); Red Blood Count 3.07 M/uL (4.2-5.4); White Blood Count 21.06 K/uL (4.8-10.8)
[2021-06-13] MEDS ORDERED: MIDAZOLAM HCL 125MG/250ML D5W ONE (10:20)
[2021-06-13 10:26] LABS: INR 1.1 (0.9-1.1); Partial Thromboplastin Ratio 0.9; Partial Thromboplastin Time 24.7 Seconds (21.0-31.0); Prothrombin Time 10.9 Seconds (9.0-12.0)
[2021-06-13 10:33] LABS: Alanine Aminotransferase 16 U/L (12-78); Albumin Level 2.7 gm/dl (3.4-5.0); Aspartate Aminotransferase 14 U/L (15-37); BUN Creatinine Ratio 24.1 (10-20); Bilirubin Direct < 0.1 mg/dl (0-0.2); Blood Urea Nitrogen 49 mg/dl (7-18); Calcium 9.3 mg/dl (8.5-10.1); Carbon Dioxide 24 mmol/L (21-32); Chloride 114 mmol/L (98-107); Est GFR (African American) 27.1 ml/min; Est GFR (Non-African American) 23.4 ml/min; Glucose 249 mg/dl (70-99); Lipase 153 U/L (73-393); Magnesium 2.8 mg/dl (1.8-2.4); Potassium 4.5 mmol/L (3.5-5.1); Sodium 143 mmol/L (136-145)
[2021-06-13] MEDS ORDERED: MEROPENEM 1,000 MG in SYRINGE 0 ML IV STA (10:38)
[2021-06-13] MEDS ORDERED: MEROPENEM CONSULT ACTIVE PRN ×2 (10:38→21:00)
[2021-06-13] MEDS ORDERED: VANCOMYCIN CONSULT ACTIVE PRN ×2 (10:42→13:37)
[2021-06-13] MEDS ORDERED: VANCOMYCIN HCL 1,500 MG in SODIUM CHLORIDE 0.9% 500 ML IV ONE (10:42)
[2021-06-13] MEDS ORDERED: STAT IV Infusion **Titration per Protocol STA ×3 (10:53→15:18)
[2021-06-13] MEDS ORDERED: MIDAZOLAM HCL 125 MG/250 ML BAG IV SCH (11:00)
[2021-06-13] MEDS ORDERED: fentaNYL DRIP 1,250 MCG/250 ML BAG IV SCH (11:00)
[2021-06-13 11:01] LABS: Appearance Urine Turbid (Clear); Bacteria Urine Automated Negative (Negative); Bilirubin Urine Negative (Negative); Blood Urine Trace (Negative); Color Urine Yellow; Epithelial Cell Urine Auto >30 /lpf (0-5); Glucose Urine UA Negative (Negative); Ketones Urine Negative (Negative); Leukocyte Esterase Urine Negative (Negative); Nitrite Urine Negative (Negative); Protein Urine 2+ (Negative); Specific Gravity Urine 1.021 (1.000-1.030); Urobilinogen Urine Negative (Negative); WBC Urine Automated >30 /hpf (0-5); pH Urine 5.5 (4.5-7.5)
[2021-06-13 11:11] LABS: Albumin Globulin Ratio 0.5 (0.9-2); Alkaline Phosphatase 81 U/L (45-117); Bilirubin,Total 0.3 mg/dl (0.2-1); Globulin 5.4 gm/dl (2.5-4.0); Phosphorus 3.8 mg/dl (2.5-4.9); Total Protein 8.1 gm/dl (6.4-8.2)
[2021-06-13 11:15] LABS: Granular Casts Urine 20-30 /lpf (0)
[2021-06-13 11:25] LABS: T4 Free Thyroxine 0.53 ng/dl (0.8-1.6)
[2021-06-13] MEDS ORDERED: AZITHROMYCIN 500 MG in DEXTROSE 5% 250 ML IV STA (11:28)
--- NOTE | 2021-06-13 11:29 | XRay Report ---
XR chest 1V portable INDICATION: MN ^SEPSIS . TECHNIQUE: Single frontal radiograph of the chest was obtained. Comparison: Comparison is made to chest one view 05/18/2021 FINDINGS: No lines and tubes are seen. The cardiomediastinal silhouette is shifted to the left. Left retrocardi ac airspace opacity. No pneumothorax or right effusion, left effusion cannot be excluded. IMPRESSION: Likely left lower lobe atelectasis with or without superimposed aspiration, pneumonia, and/or layerin g effusion. ACT 112: Negative or not required by law. Electronically signed by: Tee Mijares M.D. 06/13/2021 11:27 AM
--- NOTE | 2021-06-13 11:30 | XRay Report ---
XR chest 1V portable INDICATION: MN ^Y ^INTUBATION, OG PLACEMENT. TECHNIQUE: Single frontal radiograph of the chest was obtained. Comparison: Comparison is made to chest one view 06/13/2021 at 1001 hours FINDINGS: Stable right subclavian venous catheter with the tip in the mid SVC. Interval placement of enteric tu be with the side-port and tip below the diaphragm and endotracheal tube with the tip 2 cm from the ca aramis. The cardiomediastinal silhouette is normal. The lungs are clear. No evidence of pleural effusio n or pneumothorax. IMPRESSION: Endotracheal tube tip is 2 cm above the kati and can be withdrawn approximately 1 cm for improved p ositioning. ACT 112: Negative or not required by law. Electronically signed by: Tee Mijares M.D. 06/13/2021 11:28 AM
--- NOTE | 2021-06-13 11:34 | Emergency Department Note ---
Impression & Plan Acute respiratory failure, Chronic incomplete quadriplegia, Sepsis, Acute on chronic renal failure, Multifocal pneumonia ED Provider Note NAME: RODNEY CHRISTOPHER AGE: 75 SEX: F ARRIVES VIA: Ambulance INFORMANT: Patient, ED PROVIDER(S): Jose D Suazo MD CHIEF COMPLAINT: Acute respiratory failure. PLAN: Disposition: Admit MEDICAL DECISION MAKING: The patient is a 75-year-old woman with a pmhx of chronic incomplete quadriplegia, CAD, CKD, recent admission to [facility] for sepsis in the setting of chronic osteomyelitis of left heel ulcer with heel abscess status post debridement currently on Cefepime and Vancomycin who presents to the emergency department with acute respiratory failure [facility] after staff noted her to be 50% on room air and cyanotic appearing. EMS arrived and placed the patient on CPAP which improved O2 saturation to the 70s. On arrival, the patient continued to be in severe respiratory distress/failure, cyanotic, alert to voice, answering simple questions with nod or yes/no. BP 90s/70s, RR 30s. Lungs with bilateral rales and rhonchi with decreased BS of left lung storey. BiPAP initiated on arrival to the emergency department which improved O2 saturation to the 80s. However no additional improvement despite DuoNeb. Chest x-ray demonstrates left lung white out suspicious for aspiration pneumonia/mucous plugging. The patient is a full code and so decision was made to intubate. Intubation was performed per procedure note without complication and subsequent improvement in O2 saturation following RT suctioning of thick secretions. The patient has a history of Pseudomonas as well as ESBL and so empiric antibiotics initiated with meropenem and vancomycin. She does have acute on ch ronic renal failure and so IV fluid hydration was initiated cautiously to avoid overload. BP improved and stable. EKG without overt acute ischemia. WBC 21K with left shift. H/H similar to prior. Platelets 600K, similar to prior. Chemistry without metabolic acidosis. Cr 2 increased from baselines with BUN/Cr > 20 suggestive of prerenal etiology. LFTs unremarkable. TSH 170 Free T4 0.53. Procal 0.46. Lactate 1.7 wnl. UA suspicious for infection albeit with epithelial cells in setting of indwelling parada catheter. Covid-19 PCR negative. I did speak with/update the patient's daughter, Anna, who lives in [place] and is the patient's decision maker. Case was discussed with Dr. Rodríguez, [facility] hospitalist, who will evaluate the patient for admission. Case was discussed with Dr. Kimball, ICU dance coach. Triage Nursing notes reviewed and agree them. Prior medical records reviewed Vital Signs: reviewed and remarkable for hypoxia and tachypneaw. Differential diagnosis: Sepsis, UTI, pneumonia, metabolic, electrolyte abnormalities, cardiac sources, intracerebral event, toxicologic, neurologic, as well as other pathologies. ER treatment provided: See below. Diagnostics interpreted by me: ECG: Sinus rhythm with Premature atrial complexes, 81 bpm, no overt ST elevation or depression. Cardiac Monitoring: An order for continuous cardiac monitoring was placed and demonstrated sinus rhythm with Premature atrial complexes, 81 bpm. Laboratory studies: See below Imaging studies: See below Consultation(s): Case was discussed with [facility] hospitalist, who will evaluate the patient for admission. Case was discussed with Dr. Kimball, ICU dance coach. HPI: The patient is a 75-year-old woman with a pmhx of chronic incomplete quadriplegia, CAD, CKD, recent admission to [facility] for sepsis in the setting of chronic osteomyelitis of left heel ulcer with heel abscess status post debridement currently on Cefepime and Vancomycin who presents to the emergency department with acute respiratory failure [facility] after staff noted her to be 50% on room air and cyanotic appearing. EMS arrived and placed the patient on CPAP which improved O2 saturation to the 70s. ROS: See above HPI for pertinent positives & negatives. A total of 10 systems reviewed and were otherwise negative. PAST MEDICAL HISTORY:See Below PAST SURGICAL HISTORY:See Below FAMILY HISTORY:See Below SOCIAL HISTORY:See Below HOME MEDICATIONS:See Below ALLERGIES:See Below VITALS:See Below PHYSICAL EXAMINATION: GENERAL: Awake, alert to voice, ill-appearing, in severe respiratory distress HENT: Normocephalic, atraumatic. Oropharynx with dry mucous membranes and other cannon unremarkable. EYES: Pale conjunctiva. Sclera non-icteric. NECK: Supple. No nuchal rigidity. FROM. No JVD. RESPIRATORY: Bilateral rales and rhonchi with decreased BS of left lung storey. Tachypneic with increased WOB. CARDIAC: Regular rate, normal rhythm. Extremities cool with 2+ capillary refill. Pulses equal. Central cyanosis. ABDOMEN: Soft, non-distended. No tenderness to palpation. No rebound or guarding. No masses. RECTAL: Deferred. MUSCULOSKELETAL: Chest examination reveals no tenderness. The back is symmetrical on inspection without obvious abnormality. There is no CVA tenderness to palpation. No joint edema. LOWER EXTREMITIES: Calves are equal size bilaterally and non-tender. 1+ BLE edema. No discoloration. Left 5cm heel ulcer s/p debridement with antimicrobial patch stapled in place. No purulent drainage or surrounding erythema. NEURO: Baseline incomplete quadriplegia. SKIN: No rash or jaundice noted. ED COURSE: Times/Reassessments: Procedures: Endotracheal Intubation Indication: respiratory failure. The patient was on 100% oxygen via Bipap prior to the procedure. Suction, airway equipment, RSI drugs, respiratory equipment, and appropriate personnel were prepared prior to the initiation of the procedure. A time out was taken. Induction was performed with etomidate and paralysis with succinylcholine. After observing the clinical benefit of the medications, the airway was easily visualized utilizing the glide-scope with MAC 3. A 8.0 size ETT tube was placed atraumatically to 23 cm using standard technique. The cuff inflated without signs of malfunction. There were bilateral breath sounds, positive colormetric change, no gastric sounds, a good capnography waveform, and post procedure pulse oximetry was 95%. Post intubation sedation was administered using fentanyl and Versed. There were no complications. Critical Care: I have personally spent greater than 75 minutes of critical care time in the direct management of this patient. This includes bedside care, interpretation of diagnostic studies, and testing, discussion with consultants, patient, and family members, and other required patient management activities. This 75 minutes is in excess of all separately billable procedures. 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) MRSA (methicillin resistant staph aureus) culture positive Myelodysplasia (myelodysplastic syndrome) Neurogenic bowel Pneumonia Respiratory failure, post-operative Seasonal asthma Thrombocytopenia UTI (urinary tract infection) Surgical History H/O excision of lamina of cervical vertebra for decompression of spinal cord H/O percutaneous transluminal coronary angioplasty History of esophagogastroduodenoscopy (EGD) History of right nephrectomy History of thyroidectomy Hx of colonoscopy S/P cardiac catheterization S/P cervical spinal fusion S/P cholecystectomy Social History Smoking Status: Unknown if ever smoked Hx Alcohol Use: No Hx Substance Use: No Preferred Language: Bengali Communication Ability: Effective Threat Analyst Required: No Beliefs That Will Affect Care: None marital status: / Current Living Situation: [facility] Current Living Situation Comment: [facility] current occupational status: disabled Feels Safe at Home: Yes caffeine: Yes Physical Activity Frequency: Does not Exercise Assistive Devices: Oxygen - Continuous Allergies Allergies Allergy/AdvReac Type Severity Reaction Status Date / Time acesulfame Allergy Unknown Unknown Verified 06/13/21 12:16 aspartame Allergy Unknown Unknown Verified 06/13/21 12:16 [From Nutrasweet Aspartame] saccharin Allergy Unknown Unknown Verified 06/13/21 12:16 sucralose Allergy Unknown Unknown Verified 06/13/21 12:16 mold Allergy Unknown Verified 06/13/21 12:16 pollen extracts Allergy Unknown Verified 06/13/21 12:16 Home Meds Home Medications Medication Instructions Recorded Confirmed acetaminophen 325 mg tablet 650 mg PO Q6 PRN 01/30/21 06/13/21 (Tylenol) albuterol sulfate 90 mcg/actuation 2 puff INHALATION Q4 PRN 01/30/21 06/13/21 aerosol inhaler (Proventil HFA) ascorbic acid (vitamin C) 500 mg 500 mg PO BID 01/30/21 06/13/21 tablet (Vitamin C) baclofen 10 mg tablet 10 mg PO HS PRN 01/30/21 06/13/21 baclofen 5 mg tablet 5 mg PO BID PRN 01/30/21 06/13/21 bisacodyl 10 mg rectal suppository 10 mg WA UD PRN 01/30/21 06/13/21 (Dulcolax (bisacodyl)) ezetimibe 10 mg tablet (Zetia) 10 mg PO DAILY 01/30/21 06/13/21 gabapentin 100 mg capsule 100 mg PO TID 01/30/21 06/13/21 insulin aspart U-100 100 unit/mL 0 sliding scale dose SUBCUT UD 01/30/21 06/13/21 subcutaneous solution (Novolog U-100 Insulin aspart) insulin glargine 100 unit/mL 20 unit SUBCUT QPM 01/30/21 06/13/21 subcutaneous solution (Lantus U-100 Insulin) magnesium oxide 400 mg PO DAILY 01/30/21 06/13/21 multivitamin 1 tab PO DAILY 01/30/21 06/13/21 ondansetron HCl 4 mg tablet 4 mg PO Q6H PRN 01/30/21 06/13/21 (Zofran) peg 400-propylene glycol 0.4 %-0.3 1 drp OPHTHALMIC (EYE) QPM 01/30/21 06/13/21 % eye gel drops (Systane Gel) polyethylene glycol 3350 17 gram 17 g PO DAILY 01/30/21 06/13/21 oral powder packet (Miralax) Saccharomyces boulardii 250 mg 250 mg PO BID 04/17/21 06/13/21 capsule (Florastor) bismuth subsalicylate 262 mg/15 mL 524 mg PO QID 04/26/21 06/13/21 oral suspension (Pepto-Bismol) sodium phosphates 19 gram-7 118 ml WA DAILY PRN 04/26/21 06/13/21 gram/197 mL enema (Fleet Enema Extra) benzonatate 200 mg capsule 200 mg PO TID 05/13/21 06/13/21 fluticasone propionate 50 2 spray INTRANASAL DAILY 05/18/21 06/13/21 mcg/actuation nasal spray,suspension Magic Mouthwash 5 ml PO QID PRN 06/13/21 06/13/21 levothyroxine 125 mcg tablet 125 mcg PO DAILY 06/13/21 06/13/21 magnesium hydroxide 400 mg/5 mL 30 ml PO BID PRN 06/13/21 06/13/21 oral suspension metoprolol tartrate 25 mg tablet 25 mg PO BID 06/13/21 06/13/21 vancomycin 500 mg intravenous 500 mg IV BID 06/13/21 06/13/21 solution Previous Rx's Medication Instructions Recorded fluconazole 100 mg tablet 200 mg PO DAILY 30 Days #60 tab 02/06/21 acetaminophen 325 mg tablet 650 mg PO Q4H PRN #0 tab 05/30/21 cefepime 2 gram solution for 2 g IV Q12H #1 ea 05/30/21 injection clopidogrel 75 mg tablet 75 mg PO QAM #0 tab 05/30/21 Results & Data (ED) Vital Signs Vital Signs - 24 hr 06/13/21 09:52 06/13/21 10:00 06/13/21 10:01 Temperature 36.6 C Temperature Source Pulse Rate 77 77 69 Pulse Rate [Right Finger] Pulse Rate from SpO2 Sensor 76 64 Respiratory Rate 27 H 28 H 30 H Respiratory Effort / Characteristics Spontaneous Blood Pressure 139/79 98/73 L Blood Pressure Mean 99 81 Pulse Oximetry 71 L 69 L 74 L Oxygen Delivery Method CPAP BiPAP Fraction of Inspired Oxygen 100 Sepsis Recent Fever Within 48 Hours Sepsis New/Unexplained Change in Mental Status Sepsis Action Taken by Nursing End-Tidal CO2 06/13/21 10:10 06/13/21 10:12 06/13/21 10:20 Temperature Temperature Source Rectal Pulse Rate 69 70 Pulse Rate [Right Finger] 74 Pulse Rate from SpO2 Sensor 69 70 Respiratory Rate 28 H 28 H Respiratory Effort / Characteristics Spontaneous Blood Pressure Blood Pressure Mean Pulse Oximetry 68 L 74 L 84 L Oxygen Delivery Method BiPAP BiPAP Mechanical Vent Fraction of Inspired Oxygen 100 Sepsis Recent Fever Within 48 Hours No Sepsis New/Unexplained Change in Mental Status No Sepsis Action Taken by Nursing No Action Required End-Tidal CO2 06/13/21 10:28 06/13/21 10:40 06/13/21 10:51 Temperature Temperature Source Pulse Rate 73 73 78 Pulse Rate [Right Finger] Pulse Rate from SpO2 Sensor 75 77 Respiratory Rate 27 H Respiratory Effort / Characteristics Blood Pressure 107/77 115/57 L Blood Pressure Mean 87 76 Pulse Oximetry 95 95 96 Oxygen Delivery Method Mechanical Vent Mechanical Vent Fraction of Inspired Oxygen 100 60 60 Sepsis Recent Fever Within 48 Hours Sepsis New/Unexplained Change in Mental Status Sepsis Action Taken by Nursing End-Tidal CO2 30 21 06/13/21 11:00 06/13/21 11:10 06/13/21 11:20 Temperature Temperature Source Pulse Rate 74 70 Pulse Rate [Right Finger] Pulse Rate from SpO2 Sensor 73 70 71 Respiratory Rate Respiratory Effort / Characteristics Blood Pressure 116/68 106/58 L 107/63 Blood Pressure Mean 84 74 77 Pulse Oximetry 98 96 95 Oxygen Delivery Method Mechanical Vent Mechanical Vent Mechanical Vent Fraction of Inspired Oxygen 60 60 60 Sepsis Recent Fever Within 48 Hours Sepsis New/Unexplained Change in Mental Status Sepsis Action Taken by Nursing End-Tidal CO2 26 25 27 06/13/21 11:30 Temperature Temperature Source Pulse Rate 68 Pulse Rate [Right Finger] Pulse Rate from SpO2 Sensor 68 Respiratory Rate Respiratory Effort / Characteristics Blood Pressure 100/60 Blood Pressure Mean 73 Pulse Oximetry 93 Oxygen Delivery Method Mechanical Vent Fraction of Inspired Oxygen 60 Sepsis Recent Fever Within 48 Hours Sepsis New/Unexplained Change in Mental Status Sepsis Action Taken by Nursing End-Tidal CO2 27 Laboratory Data Attestation: I reviewed the patient's lab results. Result diagrams: 06/13/21 10:05 06/13/21 14:55 Lab Results 06/13/21 06/13/21 06/13/21 Range/Units 10:05 10:05 10:05 WBC 21.06 H (4.8-10.8) K/uL RBC 3.07 L (4.2-5.4) M/uL Hgb 10.5 L (12.0-16.0) g/dL Hct 33.1 L (37-47) % MCV 107.8 H (80-100) fL MCH 34.2 H (25-34) pg MCHC 31.7 L (32-36) g/dL RDW Std Deviation 59.3 H (36.4-46.3) fL RDW Coeff of Alicia 15.1 H (11.5-14.5) % Plt Count 662 H (130-400) K/uL MPV 10.4 (7.4-10.4) fL Immature Gran % (Auto) 0.7 % Neut % (Auto) 87.8 % Lymph % (Auto) 5.4 % [place] % (Auto) 4.3 % Eos % (Auto) 1.5 % Baso % (Auto) 0.3 % Neut # (Auto) 18.51 H (1.4-6.5) K/uL Lymph # (Auto) 1.14 L (1.2-3.4) K/uL [place] # (Auto) 0.90 H (0.11-0.59) K/uL Eos # (Auto) 0.31 (0-0.5) K/uL Baso # (Auto) 0.06 (0-0.2) K/uL Immature Gran # (Auto) 0.14 H (0.00-0.02) K/uL PT 10.9 (9.0-12.0) Seconds INR 1.1 (0.9-1.1) APTT 24.7 (21.0-31.0) Seconds PTT Ratio 0.9 Sodium 143 (136-145) mmol/L Potassium 4.5 (3.5-5.1) mmol/L Chloride 114 H (98-107) mmol/L Carbon Dioxide 24 (21-32) mmol/L Anion Gap 6.0 (3-11) BUN 49 H (7-18) mg/dl Creatinine 2.04 H (0.6-1.2) mg/dl Est Cr Clr Drug Dosing Not Reportable Est GFR ( Amer) 27.1 ml/min Est GFR (Non-Af Amer) 23.4 ml/min BUN/Creatinine Ratio 24.1 H (10-20) Glucose 249 H (70-99) mg/dl Lactate (0.4-2.0) mmol/L Calcium 9.3 (8.5-10.1) mg/dl Phosphorus 3.8 (2.5-4.9) mg/dl Magnesium 2.8 H (1.8-2.4) mg/dl Total Bilirubin 0.3 (0.2-1) mg/dl Direct Bilirubin < 0.1 (0-0.2) mg/dl AST 14 L (15-37) U/L ALT 16 (12-78) U/L Alkaline Phosphatase 81 (45-117) U/L Total Protein 8.1 (6.4-8.2) gm/dl Albumin 2.7 L (3.4-5.0) gm/dl Globulin 5.4 H (2.5-4.0) gm/dl Albumin/Globulin Ratio 0.5 L (0.9-2) Lipase 153 (73-393) U/L Procalcitonin (0-0.5) ng/ml TSH 170.000 H (0.300-4.500) uIu/ml Free T4 0.53 L (0.8-1.6) ng/dl Urine Color Urine Appearance (Clear) Urine pH (4.5-7.5) Ur Specific [place] (1.000-1.030) Urine Protein (Negative) Urine Glucose (UA) (Negative) Urine Ketones (Negative) Urine Blood (Negative) Urine Nitrite (Negative) Urine Bilirubin (Negative) Urine Urobilinogen (Negative) Ur Leukocyte Esterase (Negative) Urine WBC (Auto) (0-5) /hpf Urine RBC (Auto) (0-4) /hpf U Hyaline Cast (Auto) (0-5) /lpf U Epithel Cells (Auto) (0-5) /lpf Urine Bacteria (Auto) (Negative) Ur Renal Epithelial Cell Granular Casts (0) /lpf Urine Yeast COVID-19 Eval Order SARS-CoV-2 (PCR) (Negative) 06/13/21 06/13/21 06/13/21 Range/Units 10:05 10:05 10:43 WBC (4.8-10.8) K/uL RBC (4.2-5.4) M/uL Hgb (12.0-16.0) g/dL Hct (37-47) % MCV (80-100) fL MCH (25-34) pg MCHC (32-36) g/dL RDW Std Deviation (36.4-46.3) fL RDW Coeff of Alicia (11.5-14.5) % Plt Count (130-400) K/uL MPV (7.4-10.4) fL Immature Gran % (Auto) % Neut % (Auto) % Lymph % (Auto) % [place] % (Auto) % Eos % (Auto) % Baso % (Auto) % Neut # (Auto) (1.4-6.5) K/uL Lymph # (Auto) (1.2-3.4) K/uL [place] # (Auto) (0.11-0.59) K/uL Eos # (Auto) (0-0.5) K/uL Baso # (Auto) (0-0.2) K/uL Immature Gran # (Auto) (0.00-0.02) K/uL PT (9.0-12.0) Seconds INR (0.9-1.1) APTT (21.0-31.0) Seconds PTT Ratio Sodium (136-145) mmol/L Potassium (3.5-5.1) mmol/L Chloride (98-107) mmol/L Carbon Dioxide (21-32) mmol/L Anion Gap (3-11) BUN (7-18) mg/dl Creatinine (0.6-1.2) mg/dl Est Cr Clr Drug Dosing Est GFR ( Amer) ml/min Est GFR (Non-Af Amer) ml/min BUN/Creatinine Ratio (10-20) Glucose (70-99) mg/dl Lactate 1.7 (0.4-2.0) mmol/L Calcium (8.5-10.1) mg/dl Phosphorus (2.5-4.9) mg/dl Magnesium (1.8-2.4) mg/dl Total Bilirubin (0.2-1) mg/dl Direct Bilirubin (0-0.2) mg/dl AST (15-37) U/L ALT (12-78) U/L Alkaline Phosphatase (45-117) U/L Total Protein (6.4-8.2) gm/dl Albumin (3.4-5.0) gm/dl Globulin (2.5-4.0) gm/dl Albumin/Globulin Ratio (0.9-2) Lipase (73-393) U/L Procalcitonin 0.46 (0-0.5) ng/ml TSH (0.300-4.500) uIu/ml Free T4 (0.8-1.6) ng/dl Urine Color Urine Appearance (Clear) Urine pH (4.5-7.5) Ur Specific [place] (1.000-1.030) Urine Protein (Negative) Urine Glucose (UA) (Negative) Urine Ketones (Negative) Urine Blood (Negative) Urine Nitrite (Negative) Urine Bilirubin (Negative) Urine Urobilinogen (Negative) Ur Leukocyte Esterase (Negative) Urine WBC (Auto) (0-5) /hpf Urine RBC (Auto) (0-4) /hpf U Hyaline Cast (Auto) (0-5) /lpf U Epithel Cells (Auto) (0-5) /lpf Urine Bacteria (Auto) (Negative) Ur Renal Epithelial Cell Granular Casts (0) /lpf Urine Yeast COVID-19 Eval Order Covid19 at [facility] SARS-CoV-2 (PCR) (Negative) 06/13/21 06/13/21 Range/Units 10:43 10:43 WBC (4.8-10.8) K/uL RBC (4.2-5.4) M/uL Hgb (12.0-16.0) g/dL Hct (37-47) % MCV (80-100) fL MCH (25-34) pg MCHC (32-36) g/dL RDW Std Deviation (36.4-46.3) fL RDW Coeff of Alicia (11.5-14.5) % Plt Count (130-400) K/uL MPV (7.4-10.4) fL Immature Gran % (Auto) % Neut % (Auto) % Lymph % (Auto) % [place] % (Auto) % Eos % (Auto) % Baso % (Auto) % Neut # (Auto) (1.4-6.5) K/uL Lymph # (Auto) (1.2-3.4) K/uL [place] # (Auto) (0.11-0.59) K/uL Eos # (Auto) (0-0.5) K/uL Baso # (Auto) (0-0.2) K/uL Immature Gran # (Auto) (0.00-0.02) K/uL PT (9.0-12.0) Seconds INR (0.9-1.1) APTT (21.0-31.0) Seconds PTT Ratio Sodium (136-145) mmol/L Potassium (3.5-5.1) mmol/L Chloride (98-107) mmol/L Carbon Dioxide (21-32) mmol/L Anion Gap (3-11) BUN (7-18) mg/dl Creatinine (0.6-1.2) mg/dl Est Cr Clr Drug Dosing Est GFR ( Amer) ml/min Est GFR (Non-Af Amer) ml/min BUN/Creatinine Ratio (10-20) Glucose (70-99) mg/dl Lactate (0.4-2.0) mmol/L Calcium (8.5-10.1) mg/dl Phosphorus (2.5-4.9) mg/dl Magnesium (1.8-2.4) mg/dl Total Bilirubin (0.2-1) mg/dl Direct Bilirubin (0-0.2) mg/dl AST (15-37) U/L ALT (12-78) U/L Alkaline Phosphatase (45-117) U/L Total Protein (6.4-8.2) gm/dl Albumin (3.4-5.0) gm/dl Globulin (2.5-4.0) gm/dl Albumin/Globulin Ratio (0.9-2) Lipase (73-393) U/L Procalcitonin (0-0.5) ng/ml TSH (0.300-4.500) uIu/ml Free T4 (0.8-1.6) ng/dl Urine Color Yellow Urine Appearance Turbid A (Clear) Urine pH 5.5 (4.5-7.5) Ur Specific [place] 1.021 (1.000-1.030) Urine Protein 2+ H (Negative) Urine Glucose (UA) Negative (Negative) Urine Ketones Negative (Negative) Urine Blood Trace H (Negative) Urine Nitrite Negative (Negative) Urine Bilirubin Negative (Negative) Urine Urobilinogen Negative (Negative) Ur Leukocyte Esterase Negative (Negative) Urine WBC (Auto) >30 H (0-5) /hpf Urine RBC (Auto) 5-10 H (0-4) /hpf U Hyaline Cast (Auto) 10-30 H (0-5) /lpf U Epithel Cells (Auto) >30 H (0-5) /lpf Urine Bacteria (Auto) Negative (Negative) Ur Renal Epithelial Cell Not Reportable Granular Casts 20-30 H (0) /lpf Urine Yeast Not Reportable COVID-19 Eval Order SARS-CoV-2 (PCR) NEGATIVE (Negative) Administered Medications Acetaminophen (Acetaminophen 325 Mg Tab) 650 mg PO Q6 PRN PRN Reason: Fever Or Pain Stop: 07/13/21 13:36 Last Admin: 06/13/21 19:44 Dose: 650 mg Documented by: [id number] Albuterol (Albuterol 0.083% Nebu Soln 3 Ml Vial) 2.5 mg NEB Q6R PRN PRN Reason: Shortness Of Breath Stop: 07/13/21 13:36 Last Admin: 06/13/21 19:25 Dose: 2.5 mg Documented by: [id number] Fentanyl Citrate (Fentanyl Bolus From Bag) 50 mcg IV Q60M PRN PRN Reason: Pain or Agitation Stop: 06/27/21 10:52 Last Admin: 06/13/21 14:21 Dose: 50 mcg Documented by: [id number] Admin: 06/13/21 12:55 Dose: 50 mcg Documented by: [id number] Gabapentin (Gabapentin 100 Mg Cap) 100 mg PO TID [facility] Stop: 07/13/21 13:59 Last Admin: 06/13/21 19:50 Dose: 100 mg Documented by: [id number] Admin: 06/13/21 14:38 Dose: 100 mg Documented by: [id number] Heparin Sodium (Porcine) (Heparin Sod 5,000 Unit/0.5 Ml Vial) 5,000 units SQ Q12 DEREK Stop: 07/13/21 20:59 Last Admin: 06/13/21 19:50 Dose: 5,000 units Documented by: [id number] Fentanyl Citrate (Fentanyl Drip) 1,250 mcg in 250 mls @ 10 mls/hr IV .Q25H DEREK; Protocol Stop: 06/27/21 10:59 Last Titration: 06/13/21 19:06 Dose: 50 mcg/hr, 10 mls/hr Documented by: [id number] Cosigned by: [id number] Admin: 06/13/21 10:59 Dose: 50 mcg/hr, 10 mls/hr Documented by: [id number] Cosigned by: [id number] Famotidine 20 mg/ Syringe 5 mls @ 2.5 mls/min IV Q24H DEREK Stop: 07/13/21 13:59 Last Admin: 06/13/21 14:22 Dose: 2.5 mls/min Documented by: [id number] Norepinephrine Bitartrate (Levophed/D5w) 8 mg in 508 mls @ 13.487 mls/hr IV .Q24H DEREK; Protocol Stop: 07/13/21 14:29 Last Titration: 06/13/21 20:00 Dose: 0.05 mcg/kg/min, 13.5 mls/hr Documented by: [id number] Titration: 06/13/21 19:38 Dose: 0.02 mcg/kg/min, 5.4 mls/hr Documented by: [id number] Titration: 06/13/21 19:06 Dose: 0 mcg/kg/min, 0 mls/hr Documented by: [id number] Cosigned by: [id number] Titration: 06/13/21 18:06 Dose: 0.02 mcg/kg/min, 5.4 mls/hr Documented by: [id number] Titration: 06/13/21 17:00 Dose: 0.03 mcg/kg/min, 8.1 mls/hr Documented by: [id number] Titration: 06/13/21 15:49 Dose: 0.05 mcg/kg/min, 13.5 mls/hr Documented by: [id number] Titration: 06/13/21 14:42 Dose: 0.03 mcg/kg/min, 8.1 mls/hr Documented by: [id number] Admin: 06/13/21 14:00 Dose: 0.05 mcg/kg/min, 13.5 mls/hr Documented by: [id number] Cosigned by: [id number] Hydrocortisone Sodium (Succinate 50 mg/ Syringe) 1 mls @ 4 mls/min IV Q6H DEREK Stop: 07/13/21 14:59 Last Admin: 06/13/21 19:50 Dose: 4 mls/min Documented by: [id number] Admin: 06/13/21 15:15 Dose: 4 mls/min Documented by: [id number] Insulin Human Regular 250 (units/ Sodium Chloride) 250 mls @ 3.8 mls/hr IV .Q24H DEREK; Protocol Stop: 07/13/21 15:29 Last Titration: 06/13/21 22:18 Dose: 3.8 units/hr, 3.8 mls/hr Documented by: [id number] Cosigned by: [id number] Titration: 06/13/21 21:06 Dose: 3.2 units/hr, 3.2 mls/hr Documented by: [id number] Cosigned by: [id number] Titration: 06/13/21 20:09 Dose: 2.7 units/hr, 2.7 mls/hr Documented by: [id number] Cosigned by: [id number] Titration: 06/13/21 19:06 Dose: 2.7 units/hr, 2.7 mls/hr Documented by: [id number] Cosigned by: [id number] Admin: 06/13/21 17:08 Dose: 2.7 units/hr, 2.7 mls/hr Documented by: [id number] Cosigned by: [id number] Insulin Aspart (Insulin Aspart 100 Units/Ml 3 Ml Pen) 0 units SC ACHS DEREK Stop: 07/13/21 16:29 Last Admin: 06/13/21 20:42 Dose: Not Given Documented by: [id number] Admin: 06/13/21 17:09 Dose: Not Given Documented by: [id number] Cosigned by: [id number] Metoprolol Tartrate (Metoprolol Tartrate 25 Mg Tab) 25 mg PO Q12 DEREK Stop: 07/13/21 20:59 Last Admin: 06/13/21 19:51 Dose: Not Given Documented by: [id number] Discontinued Medications Albuterol (Albut/Ipratrop 3mg/0.5mg Neb 3 Ml Vial) Confirm Administered Dose 12 ml .ROUTE .STK-MED ONE Stop: 06/13/21 09:59 Last Admin: 06/13/21 10:34 Dose: Not Given Documented by: [id number] Albuterol (Albut/Ipratrop 3mg/0.5mg Neb 3 Ml Vial) 3 ml NEB NOW STA Stop: 06/13/21 10:03 Last Admin: 06/13/21 12:24 Dose: Not Given Documented by: [id number] Fentanyl Citrate (Fentanyl Citrate 1250mcg/250ml Nss) Confirm Administered Dose 1,250 mcg IV .STK-MED ONE Stop: 06/13/21 10:19 Last Admin: 06/13/21 11:03 Dose: Not Given Documented by: [id number] Sodium Chloride (Nss) 500 mls @ 999 mls/hr IV .Q31M ONE Stop: 06/13/21 10:44 Last Infusion: 06/13/21 11:17 Dose: 0 mls/hr Documented by: [id number] Admin: 06/13/21 10:34 Dose: 999 mls/hr Documented by: [id number] Meropenem 1,000 mg/ Syringe 20 mls @ 2 mls/min IV NOW STA; Protocol Stop: 06/13/21 10:47 Last Admin: 06/13/21 11:44 Dose: 2 mls/min Documented by: [id number] Vancomycin HCl 1,500 mg/ (Sodium Chloride) 530 mls @ 200 mls/hr IV NOW ONE Stop: 06/13/21 13:20 Last Infusion: 06/13/21 14:44 Dose: 0 mls/hr Documented by: [id number] Admin: 06/13/21 11:57 Dose: 200 mls/hr Documented by: [id number] Midazolam HCl (Versed) 125 mg in 250 mls @ 4 mls/hr IV .[id number] [facility]; Protocol Stop: 07/13/21 10:59 Last Titration: 06/13/21 15:10 Dose: 0 mg/hr, 0 mls/hr Documented by: [id number] Cosigned by: [id number] Titration: 06/13/21 14:44 Dose: 0 mg/hr, 0 mls/hr Documented by: [id number] Cosigned by: [id number] Admin: 06/13/21 11:00 Dose: 2 mg/hr, 4 mls/hr Documented by: [id number] Cosigned by: [id number] Sodium Chloride (Nss) 500 mls @ 999 mls/hr IV .Q31M ONE Stop: 06/13/21 11:31 Last Infusion: 06/13/21 12:23 Dose: 0 mls/hr Documented by: [id number] Admin: 06/13/21 11:57 Dose: 999 mls/hr Documented by: [id number] Azithromycin 500 mg/ Dextrose 255 mls @ 127.5 mls/hr IV NOW STA Stop: 06/13/21 13:27 Last Infusion: 06/13/21 14:43 Dose: 0 mls/hr Documented by: [id number] Admin: 06/13/21 12:42 Dose: 127.5 mls/hr Documented by: [id number] Levothyroxine Sodium 200 mcg/ (Syringe) 10 mls @ 2 mls/min IV TODAY@1530 ONE; Protocol Stop: 06/13/21 15:34 Last Admin: 06/13/21 15:14 Dose: 2 mls/min Documented by: [id number] Lactated Ringer's (Lr) 500 mls @ 999 mls/hr IV .Q31M ONE Stop: 06/13/21 19:13 Last Infusion: 06/13/21 19:38 Dose: 0 mls/hr Documented by: [id number] Admin: 06/13/21 19:07 Dose: 999 mls/hr Documented by: [id number] Insulin Human Regular (Novolin-R Bolus From Bag) 2.5 units IV ONE ONE Stop: 06/13/21 15:31 Last Admin: 06/13/21 17:08 Dose: 2.5 units Documented by: [id number] Cosigned by: [id number] Midazolam HCl (Midazolam Hcl 125mg/250ml D5w) Confirm Administered Dose 125 mg .ROUTE .STK-MED ONE Stop: 06/13/21 10:21 Last Admin: 06/13/21 11:03 Dose: Not Given Documented by: [id number] Midazolam HCl (Midazolam Bolus From Bag) 2 mg IV Q60M PRN PRN Reason: Sedation Stop: 07/13/21 10:52 Last Admin: 06/13/21 14:21 Dose: 2 mg Documented by: [id number] Admin: 06/13/21 12:55 Dose: 2 mg Documented by: [id number] Miscellaneous (Rapid Sequence Induction Bag) Confirm Administered Dose 1 ea .R OUTE .STK-MED ONE Stop: 06/13/21 09:52 Last Admin: 06/13/21 10:34 Dose: 1 ea Documented by: [id number] Miscellaneous (Insulin Protocol Goal Range ) 1 ea N/A ONE ONE Stop: 06/13/21 15:19 Last Admin: 06/13/21 17:06 Dose: 1 ea Documented by: [id number] Miscellaneous (Severe Stress Level ) 1 ea N/A ONE ONE Stop: 06/13/21 15:19 Last Admin: 06/13/21 17:06 Dose: 1 ea Documented by: [id number] Norepinephrine Bitartrate (Norepinephrine/D5w 8 Mg/508 Ml) Confirm Administered Dose 8 mg IV .STK-MED ONE Stop: 06/13/21 13:49 Last Admin: 06/13/21 14:24 Dose: Not Given Documented by: [id number] Imaging Data Radiologist's Impression: Chest X-Ray 06/13/21 10:00 XR chest 1V portable INDICATION: MN ^SEPSIS . TECHNIQUE: Single frontal radiograph of the chest was obtained. Comparison: Comparison is made to chest one view 05/18/2021 FINDINGS: No lines and tubes are seen. The cardiomediastinal silhouette is shifted to the left. Left retrocardiac airspace opacity. No pneumothorax or right effusion, left effusion cannot be excluded. IMPRESSION: Likely left lower lobe atelectasis with or without superimposed aspiration, pneumonia, and/or layering effusion. ACT 112: Negative or not required by law. Electronically signed by: Tee Mijares M.D. 06/13/2021 11:27 AM Chest X-Ray 06/13/21 10:30 XR chest 1V portable INDICATION: MN ^Y ^INTUBATION, OG PLACEMENT. TECHNIQUE: Single frontal radiograph of the chest was obtained. Comparison: Comparison is made to chest one view 06/13/2021 at 1001 hours FINDINGS: Stable right subclavian venous catheter with the tip in the mid SVC. Interval placement of enteric tube with the side-port and tip below the diaphragm and endotracheal tube with the tip 2 cm from the kati. The cardiomediastinal silhouette is normal. The lungs are clear. No evidence of pleural effusion or pneumothorax. IMPRESSION: Endotracheal tube tip is 2 cm above the kati and can be withdrawn approximately 1 cm for improved positioning. ACT 112: Negative or not required by law. Electronically signed by: Tee Mijares M.D. 06/13/2021 11:[address] 06/13/21 11:29 CT chest diagnostic wo con CT DOSE: 631.91 mGycm CLINICAL HISTORY: 75 years-old Female with evaluate left lung hypoxia s/p intubation. Acute hypoxia with respiratory failure TECHNIQUE: Multiaxial CT images of the chest were performed without contrast. A dose lowering technique was utilized adhering to the principles of ALARA. COMPARISON: Chest radiograph of same day, CT abdomen and pelvis 05/18/2021 FINDINGS: Thyroidectomy. No adenopathy. Mild cardiomegaly with small pericardial effusion. Extensive coronary artery calcifications. No thoracic aortic aneurysm. The pulmonary artery is dilated measuring up to 3.7 cm suggestive of pulmonary artery hypertension. The endotracheal tube is present within the trachea terminating 2.0 cm superior to the kati. A right subclavian central venous catheter distal tip terminates in the mid SVC. Enteric tube distal tip terminates within the gastric body. Trace pleural effusions. No pneumothorax. Bibasilar mucous plugging. Multifocal consolidative and groundglass opacities of the left lung with minimal patchy o pacities of the basal right lower lobe. Dense consolidation with air bronchograms of the lingula and left upper lobe. Asymmetric intralobular septal thickening of the lingula. 7 mm groundglass nodular density of the right upper lobe on image 66. Mild splenomegaly. Wall thickening of the mid and distal esophagus. Unremarkable soft tissues. Cervical spinal fusion hardware. No acute fracture. IMPRESSION: 1. Satisfactory positioning of the endotracheal and enteric tubes and right subclavian central venous catheter. 2. Dense airspace consolidation the left upper lobe and lingula with air bronc hograms are noted in addition to left greater than right bibasilar predominant groundglass and consolidative opacities compatible with multifocal pneumonia. 3. Mild bibasilar mucous plugging. 4. Trace pleural effusions. 5. Cardiomegaly. 6. Additional findings as above. ACT 112: Negative or not required by law. Electronically signed by: Aurelio Fernández M.D. 06/13/2021 1:24 PM Discharge Plan Visit Data Chief Complaint: Respiratory Distress Stated Complaint: resp failure ED Provider: Jose D Suazo Discharge Problem: Acute respiratory failure, Chronic incomplete quadriplegia, Sepsis, Acute on chronic renal failure, Multifocal pneumonia Patient Disposition: Admitted As Inpatient Discharge Instructions Interventions: ED Discharge Assessment Last Done: 06/13/21 13:00 Discharge Problem: Acute respiratory failure Qualifiers: Respiratory failure complication: hypoxia Qualified Code(s): J96.01 - Acute respiratory failure with hypoxia Sepsis Qualifiers: Sepsis type: sepsis due to unspecified organism Sepsis acute organ dysfunction status: with acute organ dysfunction Severe sepsis acute organ dysfunction type: acute respiratory failure Acute respiratory failure type: with hypoxia Severe sepsis shock status: without septic shock Qualified Code(s): A41.9 - Sepsis, unspecified organism Acute on chronic renal failure Qualifiers: Acute renal failure type: unspecified Chronic kidney disease stage: unspecified stage Qualified Code(s): N17.9 - Acute kidney failure, unspecified
--- NOTE | 2021-06-13 11:50 | History & Physical Report ---
Date of Service June 13, 2021 Assessment & Plan (1) Abnormal chest x-ray: Plan: DDX: Mucous plug with lobar collapse vs. 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 pulmonary - Urine without bacteria - Meropenem, Vancomycin, Azithromycin - Lactate 1.7 - WBC 21, with NLR 9:1 - PCT 0.46 - Follow blood and urine culture- de-escalate abx as able (4) Osteomyelitis: Plan: Was on Cefepime as outpatient after following course of meropenem and Vanco at home - As above Wojciech, vanco, azithro- this will cover prior wound sensitivities, MRSA, and pulmonary coverage (5) Acute on chronic renal failure: Plan: ALIX - likely mild hypovolemia - goal directed resuscitation to the ICU as needed - Follow daily renal indices - Renally dose medications- avoid further nephrotoxic medications as able (6) Quadriplegia: Plan: As per HPI - continue with PT/OT and splints (7) Hypothyroid: Plan: TSH 150 last admission was titrated up to her 125mcg synthroid dose as outpatient - remains with low T4 as well - Follow mental status - HR and BP controlled (8) CAD (coronary artery disease): Plan: Stable - Continue: Plavix, BB, and Zetia (9) Chronic osteomyelitis: Plan: As above (10) S/P PICC central line placement: Plan: Site is intact without erythema - Continue use for now - if blood cultures positive will discontinue line History of Present Illness Primary Care Provider: [facility] 75 partial quadriplegic female resident of [facility], with past medical history of: decubitus ulceration, right heel ulceration s/p surgical debridement of abscess/septic Achilles tendonitis, and OM of right calcaneus- (with esbl E.coli, MRSA, pseudomonas), recurrent UTI, DMII, CAD, HTN, Hypothyroidism. Patient had I&D of the right heel ulcer with partial calcanectomy and abx beads on 05/24/21, She is on Diflucan for prophylactic wound coverage of her sacral wound- ID recommended to continue until July, and cefepime for her right foot for; she has a PICC line. She is partial quadriplegic from elective cervical spine surgery in 10/17. Patient was discharged on 05/30/21 following above admission to [place] [facility]. Patient was brought to the EMD today via EMS for decreased mental status and hypoxia. In the EMD she had routine lab work completed as well as CXR performed. Patient was noted to have an elevated WBC count, ALIX with ANTISQUEAK CHALKER increased to 2.04, severe hypothyroidism, and CXR with left atelectasis/collapse. The patient was intubated in the EMD secondary to hypoxia with recorded SPO2 69-74 and placed on PEEP-10 and FIO2 70%, with increase of SPO2 to 95-96%. Patient was sedated on Fentanyl and Versed and hospitalist team was notified of admission. Patient will be admitted to the ICU. Will obtain CT non con of the chest for better evaluation of her left lower lobe opacity/collapse. Blood and urine cultures have been sent, Parada catheter is currently being exchanged as she has chronic indwelling Parada. Continue to evaluate source of WBC elevation, will continue meropenem, Vancomycin, and will add on Azithromycin for atypical pulmonary coverage. Patient COVID test on admission is NEGATIVE Allergies Allergy/AdvReac Type Severity Reaction Status Date / Time acesulfame Allergy Unknown Unknown Verified 06/13/21 12:16 aspartame Allergy Unknown Unknown Verified 06/13/21 12:16 [From Nutrasweet Aspartame] saccharin Allergy Unknown Unknown Verified 06/13/21 12:16 sucralose Allergy Unknown Unknown Verified 06/13/21 12:16 mold Allergy Unknown Verified 06/13/21 12:16 pollen extracts Allergy Unknown Verified 06/13/21 12:16 Home Medications Medication Instructions Recorded Confirmed Type acetaminophen 325 mg tablet 650 mg PO Q6 PRN 01/30/21 06/13/21 History (Tylenol) albuterol sulfate 90 mcg/actuation 2 puff INHALATION Q4 PRN 01/30/21 06/13/21 History aerosol inhaler (Proventil HFA) ascorbic acid (vitamin C) 500 mg 500 mg PO BID 01/30/21 06/13/21 History tablet (Vitamin C) baclofen 10 mg tablet 10 mg PO HS PRN 01/30/21 06/13/21 History baclofen 5 mg tablet 5 mg PO BID PRN 01/30/21 06/13/21 History bisacodyl 10 mg rectal suppository 10 mg PA UD PRN 01/30/21 06/13/21 History (Dulcolax (bisacodyl)) ezetimibe 10 mg tablet (Zetia) 10 mg PO DAILY 01/30/21 06/13/21 History gabapentin 100 mg capsule 100 mg PO TID 01/30/21 06/13/21 History insulin aspart U-100 100 unit/mL 0 sliding scale dose SUBCUT UD 01/30/21 06/13/21 History subcutaneous solution (Novolog U-100 Insulin aspart) insulin glargine 100 unit/mL 20 unit SUBCUT QPM 01/30/21 06/13/21 History subcutaneous solution (Lantus U-100 Insulin) magnesium oxide 400 mg PO DAILY 01/30/21 06/13/21 History multivitamin 1 tab PO DAILY 01/30/21 06/13/21 History ondansetron HCl 4 mg tablet 4 mg PO Q6H PRN 01/30/21 06/13/21 History (Zofran) peg 400-propylene glycol 0.4 %-0.3 1 drp OPHTHALMIC (EYE) QPM 01/30/21 06/13/21 History % eye gel drops (Systane Gel) polyethylene glycol 3350 17 gram 17 g PO DAILY 01/30/21 06/13/21 History oral powder packet (Miralax) fluconazole 100 mg tablet 200 mg PO DAILY 30 Days #60 tab 02/06/21 06/13/21 Rx Saccharomyces boulardii 250 mg 250 mg PO BID 04/17/21 06/13/21 History capsule (Florastor) bismuth subsalicylate 262 mg/15 mL 524 mg PO QID 04/26/21 06/13/21 History oral suspension (Pepto-Bismol) sodium phosphates 19 gram-7 118 ml PA DAILY PRN 04/26/21 06/13/21 History gram/197 mL enema (Fleet Enema Extra) benzonatate 200 mg capsule 200 mg PO TID 05/13/21 06/13/21 History fluticasone propionate 50 2 spray INTRANASAL DAILY 05/18/21 06/13/21 History mcg/actuation nasal spray,suspension acetaminophen 325 mg tablet 650 mg PO Q4H PRN #0 tab 05/30/21 06/13/21 Rx cefepime 2 gram solution for 2 g IV Q12H #1 ea 05/30/21 06/13/21 Rx injection clopidogrel 75 mg tablet 75 mg PO QAM #0 tab 05/30/21 06/13/21 Rx Magic Mouthwash 5 ml PO QID PRN 06/13/21 06/13/21 History levothyroxine 125 mcg tablet 125 mcg PO DAILY 06/13/21 06/13/21 History magnesium hydroxide 400 mg/5 mL 30 ml PO BID PRN 06/13/21 06/13/21 History oral suspension metoprolol tartrate 25 mg tablet 25 mg PO BID 06/13/21 06/13/21 History vancomycin 500 mg intravenous 500 mg IV BID 06/13/21 06/13/21 History solution Past Med/Surg History Medical History Adnexal cyst Adnexal tumor Anemia CAD (coronary artery disease) Maren infection Cardiomyopathy Chronic incomplete quadriplegia Depression Diabetes type 2, controlled Dysphagia History of DVT (deep vein thrombosis) 02/26/20 LLE History of mechanical ventilation History of NV (myocardial infarction) 2004 History of renal cell cancer HTN (hypertension) Hyperlipemia Hypothyroid Insomnia Ischemic cardiomyopathy Major depressive disorder Mass of left thigh 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) MRSA (methicillin resistant staph aureus) culture positive Myelodysplasia (myelodysplastic syndrome) Neurogenic bowel Pneumonia Respiratory failure, post-operative Seasonal asthma Thrombocytopenia UTI (urinary tract infection) Surgical History H/O excision of lamina of cervical vertebra for decompression of spinal cord H/O percutaneous transluminal coronary angioplasty History of esophagogastroduodenoscopy (EGD) History of right nephrectomy History of thyroidectomy Hx of colonoscopy S/P cardiac catheterization S/P cervical spinal fusion S/P cholecystectomy Social History Smoking Status: Unknown if ever smoked Hx Alcohol Use: No Hx Substance Use: No Preferred Language: [place] Communication Ability: Effective Irb Compliance Coordinator Required: No Beliefs That Will Affect Care: None marital status: / Current Living Situation: [facility] Current Living Situation Comment: [facility] current occupational status: disabled Feels Safe at Home: Yes caffeine: Yes Physical Activity Frequency: Does not Exercise Assistive Devices: None Review of Systems Review of Systems: REVIEW OF SYSTEMS: Unable to perform ROS secondary to intubated and sedated - most information obtained in HPI is from chart review Physical Exam Physical Exam: PHYSICAL EXAM: General: sedated, localizes pain, and moes right upper arm and lower legs with stimulation Head: Normocephalic, atraumatic ENT: PERRLA 3-2 sluggish, no pharyngeal exudate, mucous membranes moist Neuro: GCS 8T, withdraws to pain, history of limited range of motion to left shoulder, contractures of upper and lower extremities noted Chest: equal rise and fall of the chest, scattered rhonchi throughout, decreased air movement to left lower base, PEEP 10 FIo2 70 Cardiac: Regular rate and rhythm, telemetry reviewed, skin warm dry, cap refill <3 seconds, peripheral pulses +2 no JVD, no murmur, no JVD, no edema GI: NABS x 4 quadrants, soft, nontender to palpation, no rebound, guarding or tenderness : parada catheter replaced draining light yellow urine, Skin: Stage IV decubitus to sacrum, right heel with surgical wound covered intact with kirk, no errythema. no rash or erythema Results & Data Results & Data ([facility]) Vital Signs (Past 12 Hours) Vital Signs Pulse Resp BP Pulse Ox 06/13/21 11:20 107/63 95 06/13/21 11:10 70 106/58 L 96 06/13/21 11:00 74 116/68 98 06/13/21 10:51 78 115/57 L 96 06/13/21 10:40 73 107/77 95 06/13/21 10:28 73 27 H 95 06/13/21 10:20 70 84 L 06/13/21 10:12 69 28 H 74 L 06/13/21 10:01 69 30 H 98/73 L 74 L 06/13/21 10:00 77 28 H 69 L 06/13/21 09:52 77 27 H 139/79 71 L Laboratory Results Abnormal Labs 06/13/21 06/13/21 06/13/21 10:05 10:05 10:43 WBC 21.06 H RBC 3.07 L Hgb 10.5 L Hct 33.1 L MCV 107.8 H MCH 34.2 H MCHC 31.7 L RDW Std Deviation 59.3 H RDW Coeff of Alicia 15.1 H Plt Count 662 H Neut # (Auto) 18.51 H Lymph # (Auto) 1.14 L Mercer # (Auto) 0.90 H Immature Gran # (Auto) 0.14 H Chloride 114 H BUN 49 H Creatinine 2.04 H BUN/Creatinine Ratio 24.1 H Glucose 249 H Magnesium 2.8 H AST 14 L Albumin 2.7 L Globulin 5.4 H Albumin/Globulin Ratio 0.5 L TSH 170.000 H Free T4 0.53 L Urine Appearance Turbid A Urine Protein 2+ H Urine Blood Trace H Urine WBC (Auto) >30 H Urine RBC (Auto) 5-10 H U Hyaline Cast (Auto) 10-30 H U Epithel Cells (Auto) >30 H Granular Casts 20-30 H Diagnostic Findings Chest X-Ray 06/13/21 10:00 XR chest 1V portable INDICATION: MN ^SEPSIS . TECHNIQUE: Single frontal radiograph of the chest was obtained. Comparison: Comparison is made to chest one view 05/18/2021 FINDINGS: No lines and tubes are seen. The cardiomediastinal silhouette is shifted to the left. Left retrocardiac airspace opacity. No pneumothorax or right effusion, left effusion cannot be excluded. IMPRESSION: Likely left lower lobe atelectasis with or without superimposed aspiration, pneumonia, and/or layering effusion. ACT 112: Negative or not required by law. Electronically signed by: Tee Mijares M.D. 06/13/2021 11:27 AM Chest X-Ray 06/13/21 10:30 XR chest 1V portable INDICATION: MN ^Y ^INTUBATION, OG PLACEMENT. TECHNIQUE: Single frontal radiograph of the chest was obtained. Comparison: Comparison is made to chest one view 06/13/2021 at 1001 hours FINDINGS: Stable right subclavian venous catheter with the tip in the mid SVC. Interval placement of enteric tube with the side-port and tip below the diaphragm and endotracheal tube with the tip 2 cm from the kati. The cardiomediastinal silhouette is normal. The lungs are clear. No evidence of pleural effusion or pneumothorax. IMPRESSION: Endotracheal tube tip is 2 cm above the kati and can be withdrawn approximately 1 cm for improved positioning. ACT 112: Negative or not required by law. Electronically signed by: Tee Mijares M.D. 06/13/2021 11:[address] 06/13/21 11:29 CT chest diagnostic wo con CT DOSE: 631.91 mGycm CLINICAL HISTORY: 75 years-old Female with evaluate left lung hypoxia s/p intubation. Acute hypoxia with respiratory failure TECHNIQUE: Multiaxial CT images of the chest were performed without contrast. A dose lowering technique was utilized adhering to the principles of ALARA. COMPARISON: Chest radiograph of same day, CT abdomen and pelvis 05/18/2021 FINDINGS: Thyroidectomy. No adenopathy. Mild cardiomegaly with small pericardial effusion. Extensive coronary artery calcifications. No thoracic aortic aneurysm. The pulmonary artery is dilated measuring up to 3.7 cm suggestive of pulmonary artery hypertension. The endotracheal tube is present within the trachea terminating 2.0 cm superior to the kati. A right subclavian central venous catheter distal tip terminates in the mid SVC. Enteric tube distal tip terminates within the gastric body. Trace pleural effusions. No pneumothorax. Bibasilar mucous plugging. Multifocal consolidative and groundglass opacities of the left lung with minimal patchy opacities of the basal right lower lobe. Dense consolidation with air bronchograms of the lingula and left upper lobe. Asymmetric intralobular septal thickening of the lingula. 7 mm groundglass nodular density of the right upper lobe on image 66. Mild splenomegaly. Wall thickening of the mid and distal esophagus. Unremarkable soft tissues. Cervical spinal fusion hardware. No acute fracture. IMPRESSION: 1. Satisfactory positioning of the endotracheal and enteric tubes and right subclavian central venous catheter. 2. Dense airspace consolidation the left upper lobe and lingula with air bronchograms are noted in addition to left greater than right bibasilar predominant groundglass and consolidative opacities compatible with multifocal pneumonia. 3. Mild bibasilar mucous plugging. 4. Trace pleural effusions. 5. Cardiomegaly. 6. Additional findings as above. ACT 112: Negative or not required by law. Electronically signed by: Aurelio Fernández M.D. 06/13/2021 1:24 PM Chest X-Ray 06/13/21 14:11 XR chest 1V portable HISTORY: 75 years-old Female Post bronchoscopy status post bronchoscopy. COMPARISON: Chest CT of same day TECHNIQUE: Portable AP view of the chest FINDINGS: Endotracheal tube overlies the midline, 4.4 cm superior to the kati. Enteric tube courses below the diaphragm with distal tip overlying the proximal stomach. Left lung predominant ill-defined patchy airspace opacities with moderately improved aeration of the left lung base. No pneumothorax or large pleural ef fusion. Unchanged positioning of the right subclavian catheter. No acute fracture. Cervical spinal fusion hardware. IMPRESSION: 1. Moderately improved aeration of the left lung status post bronchoscopy. No pneumothorax. 2. Persistent left lung predominant patchy airspace opacities suggestive of pneumonia. ACT 112: Negative or not required by law. The above report was generated using voice recognition software. It may contain grammatical, syntax or spelling errors. Electronically signed by: Aurelio Fernández M.D. 06/13/2021 2:50 PM Medications Administered Home Medications acetaminophen 325 mg tablet (Tylenol) 650 mg PO Q6 PRN 01/30/21 [History Confirmed 05/18/21] albuterol sulfate 90 mcg/actuation aerosol inhaler (Proventil HFA) 2 puff INHALATION Q4 PRN 01/30/21 [History Confirmed 05/18/21] ascorbic acid (vitamin C) 500 mg tablet (Vitamin C) 500 mg PO BID 01/30/21 [History Confirmed 05/18/21] baclofen 10 mg tablet 10 mg PO HS 01/30/21 [History Confirmed 05/18/21] baclofen 5 mg tablet 5 mg PO BID 01/30/21 [History Confirmed 05/18/21] bisacodyl 10 mg rectal suppository (Dulcolax (bisacodyl)) 10 mg PA UD PRN 01/30/21 [History Confirmed 05/18/21] ezetimibe 10 mg tablet (Zetia) 10 mg PO DAILY 01/30/21 [History Confirmed 05/18/21] gabapentin 100 mg capsule 100 mg PO TID 01/30/21 [History Confirmed 05/18/21] insulin aspart U-100 100 unit/mL subcutaneous solution (Novolog U-100 Insulin aspart) 0 sliding scale dose SUBCUT UD 01/30/21 [History Confirmed 05/18/21] insulin glargine 100 unit/mL subcutaneous solution (Lantus U-100 Insulin) 20 unit SUBCUT QPM 01/30/21 [History Confirmed 05/18/21] magnesium oxide 400 mg PO DAILY 01/30/21 [History Confirmed 05/18/21] multivitamin 1 tab PO DAILY 01/30/21 [History Confirmed 05/18/21] ondansetron HCl 4 mg tablet (Zofran) 4 mg PO Q6H PRN 01/30/21 [History Confirmed 05/18/21] peg 400-propylene glycol 0.4 %-0.3 % eye gel drops (Systane Gel) 1 drp OPHTHALMIC (EYE) QPM 01/30/21 [History Confirmed 05/18/21] polyethylene glycol 3350 17 gram oral powder packet (Miralax) 17 g PO DAILY 01/30/21 [History Confirmed 05/18/21] protein 1 ea PO TID #0 01/30/21 [History Confirmed 05/18/21] fluconazole 100 mg tablet 200 mg PO DAILY 30 Days #60 tab 02/06/21 [Rx Confirmed 05/18/21] Saccharomyces boulardii 250 mg capsule (Florastor) 250 mg PO BID 04/17/21 [History Confirmed 05/18/21] collagenase clostridium histo. 250 unit/gram topical ointment (Santyl) 1 applic TOPICAL DAILY 14 Days #90 g 04/17/21 [Rx Confirmed 05/18/21] bismuth subsalicylate 262 mg/15 mL oral suspension (Pepto-Bismol) 524 mg PO QID 04/26/21 [History Confirmed 05/18/21] sodium phosphates 19 gram-7 gram/197 mL enema (Fleet Enema Extra) 118 ml PA DAILY PRN 04/26/21 [History Confirmed 05/18/21] benzonatate 200 mg capsule 200 mg PO TID 05/13/21 [History Confirmed 05/18/21] fluticasone propionate 50 mcg/actuation nasal spray,suspension 2 spray INTRANASAL DAILY 05/18/21 [History Confirmed 05/18/21] Vancomycin Consult Active [Consult] 1 dose NOT APPLICABLE UD PRN #0 05/30/21 [Rx] acetaminophen 325 mg tablet 650 mg PO Q4H PRN #0 tab 05/30/21 [Rx] cefepime 2 gram solution for injection 2 g IV Q12H #1 ea 05/30/21 [Rx] clopidogrel 75 mg tablet 75 mg PO QAM #0 tab 05/30/21 [Rx] levothyroxine 125 mcg capsule 125 mcg PO DAILY #0 cap 05/30/21 [Rx] metoprolol tartrate 50 mg tablet 25 mg PO Q12 #0 tab 05/30/21 [Rx Confirmed 05/18/21] Active Medications Fentanyl Citrate (Fentanyl Bolus From Bag) 50 mcg IV Q60M PRN PRN Reason: Pain or Agitation Stop: 06/27/21 10:52 Vancomycin HCl 1,500 mg/ (Sodium Chloride) 530 mls @ 200 mls/hr IV NOW ONE Stop: 06/13/21 13:20 Last Admin: 06/13/21 11:57 Dose: 200 mls/hr Documented by: Midazolam HCl (Versed) 125 mg in 250 mls @ 4 mls/hr IV .[id number] [facility]; Protocol Stop: 07/13/21 10:59 Last Admin: 06/13/21 11:00 Dose: 2 mg/hr, 4 mls/hr Documented by: Fentanyl Citrate (Fentanyl Drip) 1,250 mcg in 250 mls @ 10 mls/hr IV .Q25H [facility]; Protocol Stop: 06/27/21 10:59 Last Admin: 06/13/21 10:59 Dose: 50 mcg/hr, 10 mls/hr Documented by: Azithromycin 500 mg/ Dextrose 255 mls @ 127.5 mls/hr IV NOW STA Stop: 06/13/21 13:27 Azithromycin 250 mg/ Dextrose 252.5 mls @ 125 mls/hr IV DAILY [facility] Stop: 06/21/21 08:59 Midazolam HCl (Midazolam Bolus From Bag) 2 mg IV Q60M PRN PRN Reason: Sedation Stop: 07/13/21 10:52 Miscellaneous Information (Meropenem Consult Acitve) 1 ea N/A UD PRN PRN Reason: Consult Stop: 07/13/21 10:37 Miscellaneous Information (Vancomycin Consult Active) 1 ea N/A UD PRN PRN Reason: Consult Stop: 07/13/21 10:41 Vancomycin HCl 1,500 mg/ (Sodium Chloride) 530 mls @ 200 mls/hr IV NOW ONE Stop: 06/13/21 13:20 Last Admin: 06/13/21 11:57 Dose: 200 mls/hr Documented by: [id number] Midazolam HCl (Versed) 125 mg in 250 mls @ 4 mls/hr IV .[id number] [facility]; Protocol Stop: 07/13/21 10:59 Last Admin: 06/13/21 11:00 Dose: 2 mg/hr, 4 mls/hr Documented by: [id number] Cosigned by: [id number] Fentanyl Citrate (Fentanyl Drip) 1,250 mcg in 250 mls @ 10 mls/hr IV .Q25H [facility]; Protocol Stop: 06/27/21 10:59 Last Admin: 06/13/21 10:59 Dose: 50 mcg/hr, 10 mls/hr Documented by: [id number] Cosigned by: [id number] Discontinued Medications Albuterol (Albut/Ipratrop 3mg/0.5mg Neb 3 Ml Vial) Confirm Administered Dose 12 ml .ROUTE .STK-MED ONE Stop: 06/13/21 09:59 Last Admin: 06/13/21 10:34 Dose: Not Given Documented by: [id number] Fentanyl Citrate (Fentanyl Citrate 1250mcg/250ml Nss) Confirm Administered Dose 1,250 mcg IV .STK-MED ONE Stop: 06/13/21 10:19 Last Admin: 06/13/21 11:03 Dose: Not Given Documented by: [id number] Sodium Chloride (Nss) 500 mls @ 999 mls/hr IV .Q31M ONE Stop: 06/13/21 10:44 Last Infusion: 06/13/21 11:17 Dose: 0 mls/hr Documented by: [id number] Admin: 06/13/21 10:34 Dose: 999 mls/hr Documented by: [id number] Meropenem 1,000 mg/ Syringe 20 mls @ 2 mls/min IV NOW STA; Protocol Stop: 06/13/21 10:47 Last Admin: 06/13/21 11:44 Dose: 2 mls/min Documented by: [id number] Sodium Chloride (Nss) 500 mls @ 999 mls/hr IV .Q31M ONE Stop: 06/13/21 11:31 Last Admin: 06/13/21 11:57 Dose: 999 mls/hr Documented by: [id number] Midazolam HCl (Midazolam Hcl 125mg/250ml D5w) Confirm Administered Dose 125 mg .ROUTE .STK-MED ONE Stop: 06/13/21 10:21 Last Admin: 06/13/21 11:03 Dose: Not Given Documented by: [id number] Miscellaneous (Rapid Sequence Induction Bag) Confirm Administered Dose 1 ea .ROUTE .STK-MED ONE Stop: 06/13/21 09:52 Last Admin: 06/13/21 10:34 Dose: 1 ea Documented by: [id number] ECG Additional Comments: Sinus rhythm with Premature atrial complexes Low voltage QRS Septal infarct , age undetermined Abnormal ECG When compared with ECG of 18-MAY-2021 16:30, Premature atrial complexes are now Present Septal infarct is now Present Nonspecific T wave abnormality no longer evident in Anterior leads Code Status & VTE Plan Code Status CODE: FULL VTE: SCDS, Heparin 5000 units subq q12 hours VTE Prophylaxis Plan VTE Prophylaxis will be ordered: Yes PG Care Time/CCT Total # of Minutes Spent Total Time Spent with Patient: Total time spent is greater than 50% in coordination of care (as documented) at patient's floor/unit and/or counseling patient: Coding Level of Care Code 88550 Initial Inpt Care Lvl 3 Diagnoses Abnormal chest x-ray R93.89 Hypoxia R09.02 Osteomyelitis M86.9 Acute on chronic renal failure N17.9; N18.9 Quadriplegia G82.50 Hypothyroid E03.9 Hypothyroidism type: unspecified CAD (coronary artery disease) I25.10 Associated angina: without angina Coronary Disease-Associated Artery/Lesion type: [place] artery [place] vs. transplanted heart: [place] heart Chronic osteomyelitis M86.60 S/P PICC central line placement Z95.828 Sepsis A41.9 (1) CAD (coronary artery disease) Associated angina: without angina Coronary Disease-Associated Artery/Lesion type: [place] artery [place] vs. transplanted heart: [place] heart Qualified Code(s): I25.10 - Atherosclerotic heart disease of [place] coronary artery without angina pectoris (2) Hypothyroid Hypothyroidism type: unspecified Qualified Code(s): E03.9 - Hypothyroidism, unspecified
[2021-06-13] MEDS: MIDAZOLAM BOLUS FROM BAG IV PRN ×2 (12:55→14:21)
--- NOTE | 2021-06-13 13:25 | CT Scan Report ---
CT chest diagnostic wo con CT DOSE: 631.91 mGycm CLINICAL HISTORY: 75 years-old Female with evaluate left lung hypoxia s/p intubation. Acute hypoxia with respiratory failure TECHNIQUE: Multiaxial CT images of the chest were performed without contrast. A dose lowering techni que was utilized adhering to the principles of ALARA. COMPARISON: Chest radiograph of same day, CT abdomen and pelvis 05/18/2021 FINDINGS: Thyroidectomy. No adenopathy. Mild cardiomegaly with small pericardial effusion. Extensive coronary a rtery calcifications. No thoracic aortic aneurysm. The pulmonary artery is dilated measuring up to 3. 7 cm suggestive of pulmonary artery hypertension. The endotracheal tube is present within the trachea terminating 2.0 cm superior to the kati. A right subclavian central venous catheter distal tip ter minates in the mid SVC. Enteric tube distal tip terminates within the gastric body. Trace pleural effusions. No pneumothorax. Bibasilar mucous plugging. Multifocal consolidative and torin undglass opacities of the left lung with minimal patchy opacities of the basal right lower lobe. Dens e consolidation with air bronchograms of the lingula and left upper lobe. Asymmetric intralobular sep twin thickening of the lingula. 7 mm groundglass nodular density of the right upper lobe on image 66. Mild splenomegaly. Wall thickening of the mid and distal esophagus. Unremarkable soft tissues. Cervic al spinal fusion hardware. No acute fracture. IMPRESSION: 1. Satisfactory positioning of the endotracheal and enteric tubes and right subclavian central venous catheter. 2. Dense airspace consolidation the left upper lobe and lingula with air bronchograms are noted in ad dition to left greater than right bibasilar predominant groundglass and consolidative opacities greg tible with multifocal pneumonia. 3. Mild bibasilar mucous plugging. 4. Trace pleural effusions. 5. Cardiomegaly. 6. Additional findings as above. ACT 112: Negative or not required by law. Electronically signed by: Aurelio Fernández M.D. 06/13/2021 1:24 PM
[2021-06-13] MEDS ORDERED: ICU PROTOCOL FOR HYPERGLYCEMIA PRN (13:37)
[2021-06-13] MEDS ORDERED: bisacodyL 10 MG SUPP PR PRN (13:37)
[2021-06-13] MEDS ORDERED: NOREPINEPHRINE/D5W 8 MG/508 ML IV ONE (13:48)
[2021-06-13] MEDS ORDERED: PATIENT'S HEIGHT AND/OR WEIGHT NEEDED SCH (14:00)
--- NOTE | 2021-06-13 14:11 | Procedure Note ---
Procedure Note: Bronchoscopy Procedure PREOPERATIVE DIAGNOSIS: Left upper lobe collapse POSTOPERATIVE DIAGNOSIS: Left upper lobe collapse PROCEDURE PERFORMED: Flexible fiberoptic bronchoscopy with bronchoalveolar lavage from the left upper lobe COMPLICATIONS: None. INDICATION: Clear out mucus debris from the left upper lobe and evaluate for infection PROCEDURE: Informed consent was obtained from the patient's family member as the patient was unable to give consent given her intubation status and altered mental status. Informed consent was obtained by IVAN Benites. Consent was signed and placed on the chart. The patient was on continuous Versed and fentanyl infusions during the procedure for sedation. The scope was inserted via the endotracheal tube. Secretions were noted emanating from the left mainstem bronchus. Kati was noted to be sharp. The ET tube is approximately 3 cm above the kati. I inserted the scope into the left upper lobe. 20 mL of saline was instilled and a large mucous plug was aspirated. I then did a inspection of the bilateral bronchial tree. Tissue was noted to be friable diffusely with easy bleeding. There were thin secretions noted on the right which were aspirated. The patient's oxygenation improved significantly post bronchoscopy. The scope was then withdrawn. Chest x-ray ordered to evaluate the left upper lobe density. Recommendations: Follow culture data and cytology from the aspirated fluid.
--- NOTE | 2021-06-13 14:17 | Critical Care Consultation ---
Date of Consultation June 13, 2021 Assessment & Plan (1) Acute respiratory failure: Reason Critically Ill: Acute respiratory failure secondary to aspiration/mucous plugging Neuro - [facility] ICU: Patient is currently sedated for mechanical ventilation Cardiac - History of CAD. Patient's daughter reports stenting in the past Continue clopidogrel Hold antihypertensives while patient is on pressors for hypotension Mag 2.8 Check a troponin level Patient with SIRS secondary to either soft tissue infection or pulmonary source Respiratory - Patient with known history of tobacco abuse. Per daughter's report no history of pulmonary disease or follow-up Acute respiratory failure secondary to sepsis for aspiration versus mucous plugging Panculture being worked up Repeat chest x-ray in the morning GI - No history of GERD per daughter Patient is not on PPI at home or H2 regine. Famotidine 20 mg daily for prophylaxis while in the ICU RENAL/LYTES - BUN 49, creatinine is 2.04 Baseline creatinine 1.6-1.84 Electrolytes balanced. Follow daily labs - History of ESBL No bacteria in the urine Urine culture is pending Continue isolation for ESBL Chronic indwelling catheter ENDO - Elevated TSH -we will treat myxedema with increase levothyroxine as well as hydrocortisone Review of labs in the past indicated high TSH which is elevated since last review. Diabetes mellitus type 2 -hemoglobin A1c in February was 6.9%. Glycemic management per ICU protocol HEME - Chronic anemia of chronic disease hemoglobin 10.5 g/Jose Luis on admission No evidence of active bleeding ID - Patient with sepsis secondary to pulmonary versus soft tissue versus urine Procalcitonin 0.46 Patient started meropenem and vancomycin and azithromycin (day #1) Repeat lactic acid follow if greater than 2 White count 21,000 Bronchoscopy with bronchial lavage sent to lab for evaluation History of urine ESBL as well as MRSA in the wound Wound care consult with wound ostomy nurse Isolation with contact precautions LINES/IV ACCESS - Peripheral lines in place We will attempt to wean off of Levophed. If unable to wean, patient will need central line DVT PROPHYLAXIS - Heparin 5000 units subcutaneously every 12 hours CCT: 60 minutes independent of any procedures Thank you for including us in the care of this patient. Please refer to Dr. Kimball's addendum for further recommendations. (2) Hypoxia: (3) Acute on chronic renal failure: (4) UTI (urinary tract infection): (5) Stage IV pressure ulcer: (6) Chronic osteomyelitis: (7) Hypothyroid: (8) HTN (hypertension): (9) Diabetes type 2, controlled: (10) Chronic incomplete quadriplegia: (11) CAD (coronary artery disease): (12) Anemia: Supervising Physician Co-Signing Physician Notes Patient seen exam with FABIOLA. Agree with his assessment and plan aside for any additions/exceptions noted: The relevant points are that she has evidence of severe sepsis secondary to aspiration pneumonia. I performed a bronchoscopy and aspirated thick secretions from the left upper lobe. Status post bronchoscopy, her oxygenation improved dramatically. Bronchoscopy secretions sent for culture. Continue broad- spectrum antibiotics. Continue to follow urinalysis and blood cultures. There may be a component of myxedema coma given her elevated TSH. IV levothyroxine started. Hydrocortisone started as well due to hypotension and concern for relative adrenal insufficiency. Versed weaned off. Continue fentanyl for pain control. Hopefully, will perform an SBT and extubate in the next 24 to 48 hours. Baseline function is very poor. Palliative care consultation may be beneficial. History of Present Illness Reason for Consultation: Respiratory failure requiring mechanical ventilation Attending Physician: Lili oRdríguez DO History of Present Illness Attending: Dr. Kimball This is a 75-year-old female that lives at [facility]. She has a past medical history of iatrogenic quadriplegia after spine surgery, osteomyelitis from chronic wounds, chronic renal failure, recurrent UTI with ESBL, chronic indwelling [place] catheter, stage IV pressure ulcers of the heels, chronic osteomyelitis, hypothyroidism, pretension, diabetes mellitus type 2, CAD, chronic, adnexal cyst. Patient is currently a resident at [facility]. She has been there since surgery in [place] when she developed quadriplegia. She had rehab and then was transferred to a rehab in the area and then transferred to [facility] for further management. She has a history of pressure wounds that have become stage IV pressure ulcers. She has surgical debridement and follows with the wound care clinic. From those wounds she has grown MRSA as well as developed ESBL urinary tract infections which are recurrent. At the [place] [facility] today she became short of breath and was transferred to the emergency department for further evaluation. It was noted that she had mental status changes as well as profound hypoxia. In the emergency department she was endotracheal intubated and placed on mechanical ventilation. Chest x-ray and CT scan of the chest revealed occlusion of the left lung. On arrival to the intensive care unit, patient was prepared for urgent bronchoscopy. Consent was obtained by the patient's daughter Anna. Dr. Kimball performed bronchoscopy and was able to evacuate a large mucous plug and open the airways. Patient did have some bronchial trauma as she has very friable airways. There is no significant bleeding. Please refer to Dr. Kimball's procedure note. Patient continues to be unresponsive secondary to sedation for mechanical ventilation History and medications were confirmed with the daughter in [place]. Code word was set up and daughter was given the phone number for the intensive care unit for regular updates. Allergies Allergy/AdvReac Type Severity Reaction Status Date / Time acesulfame Allergy Unknown Unknown Verified 06/13/21 12:16 aspartame Allergy Unknown Unknown Verified 06/13/21 12:16 [From Nutrasweet Aspartame] saccharin Allergy Unknown Unknown Verified 06/13/21 12:16 sucralose Allergy Unknown Unknown Verified 06/13/21 12:16 mold Allergy Unknown Verified 06/13/21 12:16 pollen extracts Allergy Unknown Verified 06/13/21 12:16 Home Medications Medication Instructions Recorded Confirmed Type acetaminophen 325 mg tablet 650 mg PO Q6 PRN 01/30/21 06/13/21 History (Tylenol) albuterol sulfate 90 mcg/actuation 2 puff INHALATION Q4 PRN 01/30/21 06/13/21 History aerosol inhaler (Proventil HFA) ascorbic acid (vitamin C) 500 mg 500 mg PO BID 01/30/21 06/13/21 History tablet (Vitamin C) baclofen 10 mg tablet 10 mg PO HS PRN 01/30/21 06/13/21 History baclofen 5 mg tablet 5 mg PO BID PRN 01/30/21 06/13/21 History bisacodyl 10 mg rectal suppository 10 mg RI UD PRN 01/30/21 06/13/21 History (Dulcolax (bisacodyl)) ezetimibe 10 mg tablet (Zetia) 10 mg PO DAILY 01/30/21 06/13/21 History gabapentin 100 mg capsule 100 mg PO TID 01/30/21 06/13/21 History insulin aspart U-100 100 unit/mL 0 sliding scale dose SUBCUT UD 01/30/21 06/13/21 History subcutaneous solution (Novolog U-100 Insulin aspart) insulin glargine 100 unit/mL 20 unit SUBCUT QPM 01/30/21 06/13/21 History subcutaneous solution (Lantus U-100 Insulin) magnesium oxide 400 mg PO DAILY 01/30/21 06/13/21 History multivitamin 1 tab PO DAILY 01/30/21 06/13/21 History ondansetron HCl 4 mg tablet 4 mg PO Q6H PRN 01/30/21 06/13/21 History (Zofran) peg 400-propylene glycol 0.4 %-0.3 1 drp OPHTHALMIC (EYE) QPM 01/30/21 06/13/21 History % eye gel drops (Systane Gel) polyethylene glycol 3350 17 gram 17 g PO DAILY 01/30/21 06/13/21 History oral powder packet (Miralax) fluconazole 100 mg tablet 200 mg PO DAILY 30 Days #60 tab 02/06/21 06/13/21 Rx Saccharomyces boulardii 250 mg 250 mg PO BID 04/17/21 06/13/21 History capsule (Florastor) bismuth subsalicylate 262 mg/15 mL 524 mg PO QID 04/26/21 06/13/21 History oral suspension (Pepto-Bismol) sodium phosphates 19 gram-7 118 ml RI DAILY PRN 04/26/21 06/13/21 History gram/197 mL enema (Fleet Enema Extra) benzonatate 200 mg capsule 200 mg PO TID 05/13/21 06/13/21 History fluticasone propionate 50 2 spray INTRANASAL DAILY 05/18/21 06/13/21 History mcg/actuation nasal spray,suspension acetaminophen 325 mg tablet 650 mg PO Q4H PRN #0 tab 05/30/21 06/13/21 Rx cefepime 2 gram solution for 2 g IV Q12H #1 ea 05/30/21 06/13/21 Rx injection clopidogrel 75 mg tablet 75 mg PO QAM #0 tab 05/30/21 06/13/21 Rx Magic Mouthwash 5 ml PO QID PRN 06/13/21 06/13/21 History levothyroxine 125 mcg tablet 125 mcg PO DAILY 06/13/21 06/13/21 History magnesium hydroxide 400 mg/5 mL 30 ml PO BID PRN 06/13/21 06/13/21 History oral suspension metoprolol tartrate 25 mg tablet 25 mg PO BID 06/13/21 06/13/21 History vancomycin 500 mg intravenous 500 mg IV BID 06/13/21 06/13/21 History solution Patient History Medical History Adnexal cyst Adnexal tumor Anemia CAD (coronary artery disease) Maren infection Cardiomyopathy Chronic incomplete quadriplegia Depression Diabetes type 2, controlled Dysphagia History of DVT (deep vein thrombosis) 02/26/20 LLE History of mechanical ventilation History of NC (myocardial infarction) 2004 History of renal cell cancer HTN (hypertension) Hyperlipemia Hypothyroid Insomnia Ischemic cardiomyopathy Major depressive disorder Mass of left thigh 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) MRSA (methicillin resistant staph aureus) culture positive Myelodysplasia (myelodysplastic syndrome) Neurogenic bowel Pneumonia Respiratory failure, post-operative Seasonal asthma Thrombocytopenia UTI (urinary tract infection) Surgical History H/O excision of lamina of cervical vertebra for decompression of spinal cord H/O percutaneous transluminal coronary angioplasty History of esophagogastroduodenoscopy (EGD) History of right nephrectomy History of thyroidectomy Hx of colonoscopy S/P cardiac catheterization S/P cervical spinal fusion S/P cholecystectomy Social History Smoking Status: Unknown if ever smoked Hx Alcohol Use: No Hx Substance Use: No Preferred Language: Kazakh Communication Ability: Effective Flight Dispatcher Required: No Beliefs That Will Affect Care: None marital status: / Current Living Situation: Half-Way Current Living Situation Comment: [facility] current occupational status: disabled Feels Safe at Home: Yes caffeine: Yes Physical Activity Frequency: Does not Exercise Assistive Devices: None Review of Systems Review of Systems: Unobtainable due to endotracheal tube Physical Exam Physical Exam: GENERAL : Endotracheal intubated with mechanical ventilation in place. Patient currently sedated EYES: No icterus, gaze conjugate. Pupils equal round reactive to light NOSE: No evidence of epistaxis. MOUTH: No lesions or candidiasis. Mucosa moist. Endotracheal tube in place and secure NECK: Supple LUNGS: Decreased breath sounds on left side. No adventitious breath sounds on the right side. HEART: Regular, rate controlled ABDOMEN: Soft, NT, ND, BS Present EXTREMITIES: No LE edema, pedal pulses intact and equal bilaterally NEURO: Sedated secondary to mechanical ventilation. Results & Data Results & Data ([facility]) Vital Signs (Past 12 Hours) Vital Signs Temp Pulse Pulse Resp BP Pulse Ox 06/13/21 12:40 76 118/75 93 06/13/21 12:30 68 130/59 L 93 06/13/21 12:20 74 106/57 L 94 06/13/21 12:11 69 95 06/13/21 12:01 69 136/93 95 06/13/21 11:51 67 106/66 93 06/13/21 11:43 74 89 L 06/13/21 11:30 68 100/60 93 06/13/21 11:20 107/63 95 06/13/21 11:10 70 106/58 L 96 06/13/21 11:00 74 116/68 98 06/13/21 10:51 78 115/57 L 96 06/13/21 10:40 73 107/77 95 06/13/21 10:28 73 27 H 95 06/13/21 10:20 70 84 L 06/13/21 10:12 69 28 H 74 L 06/13/21 10:10 74 28 H 68 L 06/13/21 10:01 69 30 H 98/73 L 74 L 06/13/21 10:00 77 28 H 69 L 06/13/21 09:52 36.6 C 77 27 H 139/79 71 L Laboratory Results 06/13/21 10:05 06/13/21 10:05 Diagnostic Findings Chest X-Ray 06/13/21 10:00 XR chest 1V portable INDICATION: MN ^SEPSIS . TECHNIQUE: Single frontal radiograph of the chest was obtained. Comparison: Comparison is made to chest one view 05/18/2021 FINDINGS: No lines and tubes are seen. The cardiomediastinal silhouette is shifted to the left. Left retrocardiac airspace opacity. No pneumothorax or right effusion, left effusion cannot be excluded. IMPRESSION: Likely left lower lobe atelectasis with or without superimposed aspiration, pneumonia, and/or layering effusion. ACT 112: Negative or not required by law. Electronically signed by: Tee Mijares M.D. 06/13/2021 11:27 AM Chest X-Ray 06/13/21 10:30 XR chest 1V portable INDICATION: MN ^Y ^INTUBATION, OG PLACEMENT. TECHNIQUE: Single frontal radiograph of the chest was obtained. Comparison: Comparison is made to chest one view 06/13/2021 at 1001 hours FINDINGS: Stable right subclavian venous catheter with the tip in the mid SVC. Interval placement of enteric tube with the side-port and tip below the diaphragm and endotracheal tube with the tip 2 cm from the kati. The cardiomediastinal silhouette is normal. The lungs are clear. No evidence of pleural effusion or pneumothorax. IMPRESSION: Endotracheal tube tip is 2 cm above the kati and can be withdrawn approximately 1 cm for improved positioning. ACT 112: Negative or not required by law. Electronically signed by: Tee Mijares M.D. 06/13/2021 11:[address] 06/13/21 11:29 CT chest diagnostic wo con CT DOSE: 631.91 mGycm CLINICAL HISTORY: 75 years-old Female with evaluate left lung hypoxia s/p intubation. Acute hypoxia with respiratory failure TECHNIQUE: Multiaxial CT images of the chest were performed without contrast. A dose lowering technique was utilized adhering to the principles of ALARA. COMPARISON: Chest radiograph of same day, CT abdomen and pelvis 05/18/2021 FINDINGS: Thyroidectomy. No adenopathy. Mild cardiomegaly with small pericardial effusion. Extensive coronary artery calcifications. No thoracic aortic aneurysm. The pulmonary artery is dilated measuring up to 3.7 cm suggestive of pulmonary artery hypertension. The endotracheal tube is present within the trachea terminating 2.0 cm superior to the kati. A right subclavian central venous catheter distal tip terminates in the mid SVC. Enteric tube distal tip terminates within the gastric body. Trace pleural effusions. No pneumothorax. Bibasilar mucous plugging. Multifocal consolidative and groundglass opacities of the left lung with minimal patchy opacities of the basal right lower lobe. Dense consolidation with air bronchograms of the lingula and left upper lobe. Asymmetric intralobular septal thickening of the lingula. 7 mm groundglass nodular density of the right upper lobe on image 66. Mild splenomegaly. Wall thickening of the mid and distal esophagus. Unremarkable soft tissues. Cervical spinal fusion hardware. No acute fracture. IMPRESSION: 1. Satisfactory positioning of the endotracheal and enteric tubes and right subclavian central venous catheter. 2. Dense airspace consolidation the left upper lobe and lingula with air bronchograms are noted in addition to left greater than right bibasilar predominant groundglass and consolidative opacities compatible with multifocal pneumonia. 3. Mild bibasilar mucous plugging. 4. Trace pleural effusions. 5. Cardiomegaly. 6. Additional findings as above. ACT 112: Negative or not required by law. Electronically signed by: Aurelio Fernández M.D. 06/13/2021 1:24 PM Medications Administered Current Medications Acetaminophen (Acetaminophen 325 Mg Tab) 650 mg PO Q6 PRN PRN Reason: Fever Or Pain Stop: 07/13/21 13:36 Albuterol (Albuterol 0.083% Nebu Soln 3 Ml Vial) 2.5 mg NEB Q6R PRN PRN Reason: Shortness Of Breath Stop: 07/13/21 13:36 Bisacodyl (Bisacodyl 10 Mg Supp) 10 mg RI UD PRN PRN Reason: Constipation Stop: 07/13/21 13:36 Clopidogrel Bisulfate (Clopidogrel Bisulfate 75 Mg Tab) 75 mg PO QAM DEREK Stop: 07/14/21 08:59 Collagenase (Collagenase Oint 30 Gm Tube) 1 appln TOP DAILY DEREK Stop: 07/14/21 08:59 Ezetimibe (Ezetimibe 10 Mg Tablet) 10 mg PO DAILY DEREK Stop: 07/14/21 08:59 Fentanyl Citrate (Fentanyl Bolus From Bag) 50 mcg IV Q60M PRN PRN Reason: Pain or Agitation Stop: 06/27/21 10:52 Last Admin: 06/13/21 14:21 Dose: 50 mcg Documented by: Gabapentin (Gabapentin 100 Mg Cap) 100 mg PO TID DEREK Stop: 07/13/21 13:59 Heparin Sodium (Porcine) (Heparin Sod 5,000 Unit/0.5 Ml Vial) 5,000 units SQ Q12 DEREK Stop: 07/13/21 20:59 Midazolam HCl (Versed) 125 mg in 250 mls @ 4 mls/hr IV .[id number] DEREK; Protocol Stop: 07/13/21 10:59 Last Admin: 06/13/21 11:00 Dose: 2 mg/hr, 4 mls/hr Documented by: Fentanyl Citrate (Fentanyl Drip) 1,250 mcg in 250 mls @ 10 mls/hr IV .Q25H [facility]; Protocol Stop: 06/27/21 10:59 Last Admin: 06/13/21 10:59 Dose: 50 mcg/hr, 10 mls/hr Documented by: Azithromycin 250 mg/ Dextrose 252.5 mls @ 125 mls/hr IV Q24H [facility] Stop: 06/21/21 12:59 Famotidine 20 mg/ Syringe 5 mls @ 2.5 mls/min IV Q24H [facility] Stop: 07/13/21 13:59 Last Admin: 06/13/21 14:22 Dose: 2.5 mls/min Documented by: Meropenem 500 mg/ Syringe 10 mls @ 2 mls/min IV Q12H [facility]; Protocol Stop: 07/26/21 00:00 Insulin Glargine (Insulin Glargine Solostar 100 Units/Ml 3 Ml Pen) 20 units SQ QPM [facility] Stop: 07/13/21 20:59 Levothyroxine Sodium (Levothyroxine Sodium 125 Mcg Tablet) 125 mcg PO DAILYBB [facility] Stop: 07/14/21 06:29 Metoprolol Tartrate (Metoprolol Tartrate 25 Mg Tab) 25 mg PO Q12 [facility] Stop: 07/13/21 20:59 Midazolam HCl (Midazolam Bolus From Bag) 2 mg IV Q60M PRN PRN Reason: Sedation Stop: 07/13/21 10:52 Last Admin: 06/13/21 14:21 Dose: 2 mg Documented by: Miscellaneous ([facility] Protocol For Hyperglycemia) 1 ea N/A PRN PRN; Protocol PRN Reason: Hyperglycemia Protocol Stop: 06/15/21 13:36 Miscellaneous Information (Meropenem Consult Acitve) 1 ea N/A UD PRN PRN Reason: Consult Stop: 07/13/21 20:59 Miscellaneous Information (Vancomycin Consult Active) 1 ea N/A UD PRN PRN Reason: Consult Stop: 07/13/21 13:36 Coding Level of Care Code Critical Care 1st 30-74 mins Diagnoses Acute respiratory failure J96.00 Hypoxia R09.02 Acute on chronic renal failure N17.9; N18.9 UTI (urinary tract infection) N39.0 Stage IV pressure ulcer L89.94 Chronic osteomyelitis M86.60 Hypothyroid E03.9 Hypothyroidism type: unspecified HTN (hypertension) I10 Hypertension type: unspecified Diabetes type 2, controlled E11.9 Diabetes mellitus complication status: without complication Diabetes mellitus halfway insulin use: unspecified termite inspector insulin use status Chronic incomplete quadriplegia G82.50 CAD (coronary artery disease) I25.10 Associated angina: without angina Coronary Disease-Associated Artery/Lesion type: [place] artery [place] vs. transplanted heart: [place] heart Anemia D64.9 Anemia type: unspecified type Time Spent (min) 60 (1) CAD (coronary artery disease) Associated angina: without angina Coronary Disease-Associated Artery/Lesion type: [place] artery [place] vs. transplanted heart: [place] heart Qualified Code(s): I25.10 - Atherosclerotic heart disease of [place] coronary artery without angina pectoris (2) Anemia Anemia type: unspecified type Qualified Code(s): D64.9 - Anemia, unspecified (3) Hypothyroid Hypothyroidism type: unspecified Qualified Code(s): E03.9 - Hypothyroidism, unspecified (4) Diabetes type 2, controlled Diabetes mellitus complication status: without complication Diabetes mellitus halfway insulin use: unspecified halfway insulin use status Qualified Code(s): E11.9 - Type 2 diabetes mellitus without complications (5) HTN (hypertension) Hypertension type: unspecified Qualified Code(s): I10 - Essential (primary) hypertension
[2021-06-13] MEDS: FAMOTIDINE 20 MG in SYRINGE 3 ML IV SCH (14:22)
[2021-06-13 14:25] LABS: iSTAT Allen Test Pass; iSTAT Arterial Blood Gas HCO3 19 meg/L (19-24); iSTAT Arterial Blood Gas pCO2 43 mmHg (35-46); iSTAT Arterial Blood Gas pH 7.25 (7.35-7.45); iSTAT Arterial Blood Gas pO2 100 mmHg (80-95); iSTAT Carbon Dioxide 20 mmol/L (24-31); iSTAT FiO2 40 %; iSTAT Site L Radial
--- NOTE | 2021-06-13 14:25 | Pharmacy Report ---
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 Patient had I&D of the right heel ulcer with partial calcanectomy and abx beads on 05/24/21, She is on Diflucan for prophylactic wound coverage of her sacral wound- ID recommended to continue until July, and cefepime for her right foot via PICC line. * Blood, urine and MRSA nasal swab pending * ALIX present on current labs SCr 2.04, baseline appears to be ~1.1-1.3 Plan Vancomycin * 1500mg (~21mg/kg) IV load x 1 given in ED @ ~ 1200 today * Pharmacy has dosed vancomycin for this patient in the past and a dose of 500mg IV Q 24 hrs produced desirable levels when ALIX not present. Given slow elimination with baseline renal fxn, will dose vanco per level at this time. Will check random level w/ AM labs tomorrow. Plan to redose when level 15- 20mcg/mL or anticipated to be so. * Goal trough level for sepsis/osteo/pulm infxn : 15 to 20 mcg/mL, or AUC/VILLA 400-600 Meropenem * eCrCl 10-24cc/min, 500mg IV Q 12 hours indicated for pulm/SSTI/osteo indications Pharmacy will continue to follow and will adjust dose/frequency as necessary. Thank you.
[2021-06-13] MEDS ORDERED: NOREPINEPHRINE/D5W 8 MG/508 ML BAG IV SCH (14:30)
[2021-06-13] MEDS: GABAPENTIN 100 MG CAP PO SCH ×2 (14:38→19:50)
--- NOTE | 2021-06-13 14:52 | XRay Report ---
XR chest 1V portable HISTORY: 75 years-old Female Post bronchoscopy status post bronchoscopy. COMPARISON: Chest CT of same day TECHNIQUE: Portable AP view of the chest FINDINGS: Endotracheal tube overlies the midline, 4.4 cm superior to the kati. Enteric tube courses below the diaphragm with distal tip overlying the proximal stomach. Left lung predominant ill-defined patchy a irspace opacities with moderately improved aeration of the left lung base. No pneumothorax or large p leural effusion. Unchanged positioning of the right subclavian catheter. No acute fracture. Cervical spinal fusion hardware. IMPRESSION: 1. Moderately improved aeration of the left lung status post bronchoscopy. No pneumothorax. 2. Persistent left lung predominant patchy airspace opacities suggestive of pneumonia. ACT 112: Negative or not required by law. The above report was generated using voice recognition software. It may contain grammatical, syntax o r spelling errors. Electronically signed by: Aurelio Fernández M.D. 06/13/2021 2:50 PM
[2021-06-13] MEDS: HYDROCORTISONE SOD 50 MG in SYRINGE 0 ML IV SCH ×2 (15:15→19:50)
[2021-06-13] MEDS ORDERED: DC ALL PREVIOUSLY ORDERED DIABETES MEDS ONE (15:18)
[2021-06-13] MEDS ORDERED: SEVERE STRESS LEVEL ONE (15:18)
[2021-06-13] MEDS ORDERED: INSULIN PROTOCOL GOAL RANGE ONE (15:18)
[2021-06-13 15:27] LABS: Glucose 259 mg/dl (70-99)
[2021-06-13] MEDS ORDERED: PHARMACY GLYCEMIC MGMT CONSULT PRN (15:28)
[2021-06-13] MEDS ORDERED: INSULIN REGULAR 250 UNITS in SODIUM CHLORIDE 0.9% 247.5 ML IV SCH (15:30)
[2021-06-13] MEDS ORDERED: CARBOHYDRATES FOR HYPOGLYCEMIA PO PRN (15:30)
[2021-06-13] MEDS ORDERED: LEVOTHYROXINE SODIUM 200 MCG in SYRINGE 0 ML IV ONE (15:30)
[2021-06-13] MEDS ORDERED: DEXTROSE 50% 50 ML SYRINGE IV PRN (15:30)
[2021-06-13] MEDS ORDERED: GLUCOSE 40% GEL 15 GM TUBE PO PRN (15:30)
[2021-06-13] MEDS ORDERED: GLUCOSE 10 TABS/TUBE PO PRN (15:30)
[2021-06-13] MEDS ORDERED: GLUCAGON FOR INJ 1 MG VIAL IM PRN (15:30)
[2021-06-13] MEDS ORDERED: NovoLIN-R BOLUS FROM BAG IV ONE (15:30)
[2021-06-13 15:36] LABS: Troponin I < 0.015 ng/ml (0-0.045)
--- NOTE | 2021-06-13 16:13 | Pharmacy Report ---
Pharmacy Glycemic Short Note 2 - Date of Service June 13, 2021 - Glycemic Short BSG Results (Last 24 hours): 06/13/21 06/13/21 06/13/21 10:05 14:55 14:55 Glucose 249 H 259 H POC Glucose 475 H* 06/13/21 15:56 Glucose POC Glucose 255 H OUTPATIENT ANTIDIABETIC REGIMEN: * Lantus 20 units Q HS * Novolog per sliding scale ASSESSMENT: * Critically ill, type 2 diabetic admitted for septic shock, currently intubated, receiving broad spectrum abx, ordered norepi for pressure support as well as stress dose hydrocortisone for possible relative adrenal insufficiency / myxedema. * Initial GLU in ER mid 200s however is now 475 * IV insulin drip initiated per ICU hyperglycemia protocol as ordered by admitting provider: goal range 110-180, severe/high stress protocol. K+ 4.5 on initial chemistry. This would be the standard of care for a patient with current stressors in ICU. PLAN FOR INPATIENT GLYCEMIC CONTROL: * Continue IV insulin infusion per protocol, goal 110-180. Use iSTAT for BSGs while on pressors * Basal insulin * None at this time - may add tomorrow depending on pressor and IV insulin needs * Bolus insulin * Nutritional / Prandial insulin per carb ratio as calculated by IV insulin drip rate change calculator PLAN FOR DISCHARGE: * to be determined
[2021-06-13] MEDS: INSULIN ASPART 100 UNITS/ML 3 ML PEN SC SCH ×2 (17:09→20:42)
[2021-06-13] MEDS ORDERED: LACTATED RINGER'S 500 ML IV ONE (18:43)
[2021-06-13] MEDS: ALBUTEROL 0.083% NEBU SOLN 3 ML VIAL NEB PRN (19:25)
[2021-06-13] MEDS: ACETAMINOPHEN 325 MG TAB PO PRN (19:44)
[2021-06-13] MEDS: HEPARIN SOD 5,000 UNIT/0.5 ML VIAL SQ SCH (19:50)
[2021-06-13] MEDS: METOPROLOL TARTRATE 25 MG TAB PO SCH (19:51)
[2021-06-13] MEDS ORDERED: INSULIN GLARGINE SOLOSTAR 100 UNITS/ML 3 ML PEN SQ SCH (21:00)
[2021-06-14] MEDS: MEROPENEM 500 MG in SYRINGE 0 ML IV SCH ×2 (00:49→11:16)
[2021-06-14] MEDS: ACETAMINOPHEN 325 MG TAB PO PRN (02:06)
[2021-06-14] MEDS: HYDROCORTISONE SOD 50 MG in SYRINGE 0 ML IV SCH ×3 (03:03→17:54)
[2021-06-14 04:48] LABS: iSTAT Allen Test Pass; iSTAT Arterial Blood Gas HCO3 19 meg/L (19-24); iSTAT Arterial Blood Gas pCO2 33 mmHg (35-46); iSTAT Arterial Blood Gas pH 7.37 (7.35-7.45); iSTAT Arterial Blood Gas pO2 73 mmHg (80-95); iSTAT Carbon Dioxide 20 mmol/L (24-31); iSTAT FiO2 40 %; iSTAT Site L Radial
[2021-06-14 05:15] LABS: Basophils # (auto) 0.04 K/uL (0-0.2); Basophils % (auto) 0.3 %; Eosinophils # (auto) 0.04 K/uL (0-0.5); Eosinophils % (auto) 0.3 %; Hematocrit (blood only) 27.9 % (37-47); Hemoglobin 8.8 g/dL (12.0-16.0); Immature Granulocytes # (auto) 0.12 K/uL (0.00-0.02); Immature Granulocytes % (auto) 0.8 %; Lymphocytes # (auto) 0.76 K/uL (1.2-3.4); Mean Corpuscular Hemoglobin 33.5 pg (25-34); Mean Corpuscular Hgb Conc 31.5 g/dL (32-36); Mean Corpuscular Volume 106.1 fL (80-100); Mean Platelet Volume 10.5 fL (7.4-10.4); Monocytes # (auto) 0.65 K/uL (0.11-0.59); Monocytes % (auto) 4.3 %; Neutrophils # (auto) 13.67 K/uL (1.4-6.5); Neutrophils % (auto) 89.3 %; Platelet Count 665 K/uL (130-400); RDW Coefficient of Variation 15.1 % (11.5-14.5); RDW Standard Deviation 58.3 fL (36.4-46.3); Red Blood Count 2.63 M/uL (4.2-5.4); White Blood Count 15.28 K/uL (4.8-10.8)
[2021-06-14 05:25] LABS: INR 1.1 (0.9-1.1); Partial Thromboplastin Ratio 1.1; Partial Thromboplastin Time 28.3 Seconds (21.0-31.0); Prothrombin Time 11.4 Seconds (9.0-12.0)
[2021-06-14 05:34] LABS: BUN Creatinine Ratio 22.6 (10-20); Calcium 8.3 mg/dl (8.5-10.1); Creatinine Clr Calc Pharmacy 19.7 ml/min; Est GFR (African American) 23.6 ml/min; Est GFR (Non-African American) 20.4 ml/min; Magnesium 2.7 mg/dl (1.8-2.4); Potassium 4.7 mmol/L (3.5-5.1)
[2021-06-14 05:39] LABS: Phosphorus 2.7 mg/dl (2.5-4.9)
[2021-06-14] MEDS ORDERED: LACTATED RINGER'S 250 ML IV ONE (06:15)
[2021-06-14] MEDS: LACTATED RINGER'S 1,000 ML IV SCH ×2 (06:17→18:01)
--- NOTE | 2021-06-14 06:23 | Electrocardiogram Report ---
Test Reason : Blood Pressure : / mmHG Vent. Rate : 081 BPM Atrial Rate : 081 BPM P-R Int : 188 ms QRS Dur : 084 ms QT Int : 396 ms P-R-T Axes : 073 083 087 degrees QTc Int : 460 ms Sinus rhythm with Premature atrial complexes Low voltage QRS Septal infarct , age undetermined Abnormal ECG When compared with ECG of 18-MAY-2021 16:30, Premature atrial complexes are now Present Septal infarct is now Present Nonspecific T wave abnormality no longer evident in Anterior leads Confirmed by Carlos Zamora ([id number]) on 06/14/2021 6:23:12 AM Referred By: REFERRED SELF Confirmed By:Carlos Zamora
[2021-06-14] MEDS ORDERED: LEVOTHYROXINE SODIUM 125 MCG TABLET PO SCH (06:30)
[2021-06-14] MEDS: INSULIN ASPART 100 UNITS/ML 3 ML PEN SC SCH ×4 (06:58→20:04)
--- NOTE | 2021-06-14 06:58 | XRay Report ---
XR chest 1V portable HISTORY: 75 years-old Female Respiratory failure acute respiratory failure COMPARISON: Chest radiograph and chest CT 06/13/2021 TECHNIQUE: Portable AP view of the chest FINDINGS: Endotracheal tube terminates 4.0 cm superior to the kati. Enteric tube distal tip projects over the proximal stomach. Right-sided PICC distal tip terminates over the mid SVC. Cardiac silhouette is enl arged. No pneumothorax or large pleural effusion. Left greater than right bilateral ill-defined pulmo nary opacities appear stable. Cervical spinal fusion hardware. IMPRESSION: 1. Lines and tubes as above. 2. Left greater than right bilateral pulmonary opacities appear stable suggestive of multifocal pneum onia. 3. No pneumothorax. ACT 112: Negative or not required by law. The above report was generated using voice recognition software. It may contain grammatical, syntax o r spelling errors. Electronically signed by: Aurelio Fernández M.D. 06/14/2021 6:56 AM
--- NOTE | 2021-06-14 07:14 | Critical Care Progress Note ---
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 Critical care indication: need for mechanical ventilation, need for pressor support 24-hour events: febrile from 22:00 to 02:30 (Tmax 38.1), soft pressures overnight (low of 73/43 at 19:00) BP currently stable on levophed Plan: Neurologic CAM ICU: currently sedated for mechanical ventilation Sedation, analgesia: fentanyl Currently tolerating wean off fentanyl and levophed; continue to monitor Cardiac BP stable at this time, currently weaning off levophed Hold home metoprolol Continue home clopidogrel, ezetimibe Respiratory Patient with history of tobacco use, though without known pulmonary disease Suspect ARF secondary to mucous plugging, sepsis, aspiration Patient underwent bronchoscopy (06/13) with washout of left upper lobe; cultures obtained and pending Mechanically ventilated at this time, maintaining adequate oxygen saturation Continue albuterol neb q6h prn Follow up repeat CXR Gastrointestinal No history of GERD, not on PPI or H2 regine at home. We will start. GI ppx: famotidine Renal/electrolytes History of CKD, baseline Cr of 1.6-1.8 ALIX on admission with Cr elevated to 2.04, has slightly worsened to 2.3 with IVF No significant electrolyte derangement at this time Replete electrolytes as needed Genitourinary No concerns at this time [place] catheter draining normal-appearing urine at this time Strict I/O's Endocrine BSG remain labile Home DM2 meds held, continue ISS per protocol Continue home levothyroxine Hematologic Hgb 10.5 on admission, has since fallen to 8.8 Will monitor for any drops in the setting of heparin gtt Follow daily CBC Blood type: B positive Infectious disease Currently afebrile, though febrile to 38.1 overnight Urine, blood, sputum cultures pending, NGTD History notable for recent MRSA and Pseudomonas osteomyelitis Continue vancomycin, meropenem, azithromycin; narrow as appropriate Integumentary Large sacral decubitus ulcers noted. Chronically on fluconazole. Lines/access PIVs intact Continue LR@80mL/hr Prophylaxis DVT ppx: heparin GI ppx: famotidine 40mg IV q24h Thank you the opportunity to participate in this patient's care. Please see Dr. Kimball's documentation for further recommendations. (2) Multifocal pneumonia: (3) Acute on chronic renal failure: (4) Chronic osteomyelitis: (5) Altered mental status: Admission and Anticipated Discharge Date Admission Date: June 13, 2021 Supervising Physician Co-Signing Physician Notes Patient seen and examined with the resident physician. Agree with his assessment and plan aside for any additions/exceptions noted: Assessment and plan: Multifocal pneumonia seen on imaging. Patient was extubated this morning, but unfortunately continued to decline throughout the day and required reintubation emergently due to hypoxemic respiratory failure and altered mental status. I performed a bronchoscopy which demonstrated multifocal mucous plugging with thick secretions. These were aspirated free. We will continue broad-spectrum antibiotics for aspiration pneumonia. Continue lung protective ventilation strategy. Palliative care was consulted. The daughter who is the power of final canoe inspector would like to continue with aggressive care at this time. Patient's baseline is very poor. She has a sacral decubitus ulceration that is quite large. She is chronically on fluconazole for osteomyelitis. Continue fentanyl for pain control. Physical exam: GENERAL : Endotracheal intubated with mechanical ventilation in place. Patient currently sedated EYES: No icterus, gaze conjugate. Pupils equal round reactive to light NOSE: No evidence of epistaxis. MOUTH: No lesions or candidiasis. Mucosa moist. Endotracheal tube in place and secure NECK: Supple LUNGS: Decreased breath sounds on left side. No adventitious breath sounds on the right side. HEART: Regular, rate controlled ABDOMEN: Soft, NT, ND, BS Present EXTREMITIES: No LE edema, pedal pulses intact and equal bilaterally NEURO: Sedated secondary to mechanical ventilation. CRITICAL CARE TIME - I have personally spent 42 minutes of critical care time in the direct management of this patient. This is a life/limb threatening event. This includes time spent evaluating patient, direct bedside care, chart review, placing orders, interpretation of diagnostic studies, discussion with consultants, patient, and family members, as well as other required patient management activities. This time is exclusive of all separately billable procedures, and teaching time and separate from and in addition to any other critical care service time. Subjective Patient seen and evaluated at bedside this morning. Patient remains mechanically ventilated. Arouses to voice or touch, shakes her head 'no' when asked about pain or SOB. Answers questions appropriately. Further ROS unobtainable. Review of Systems Review of Systems: Unobtainable due to endotracheal tube Physical Exam Physical Exam: Constitutional: laying in bed in no acute distress, comfortable-appearing, mechanically ventilated HEENT: NCAT, MMM, ET tube in place CV: regular rhythm, no murmur appreciated, extremities well-perfused Resp: mechanically ventilated, good air movement, breath sounds clear bilaterally GI: soft, nondistended, nontender, BS present MSK: no gross deformities appreciated Neuro: asleep, arousable to voice, answers questions appropriately, no movement of extremities noted Results & Data Results & Data ([facility]) Vital Signs (Past 12 Hours) Vital Signs Temp Pulse Pulse Resp BP Pulse Ox 06/14/21 06:07 37.7 C H 54 L 101/65 92 06/14/21 05:37 37.7 C H 55 L 104/62 91 06/14/21 05:00 37.9 C H 57 L 89 L 06/14/21 04:37 37.9 C H 65 103/58 L 92 06/14/21 04:26 54 L 20 95 06/14/21 04:07 37.9 C H 55 L 105/58 L 95 06/14/21 03:37 37.9 C H 54 L 104/57 L 96 06/14/21 03:07 37.9 C H 55 L 104/59 L 06/14/21 02:37 38.0 C H 56 L 103/59 L 06/14/21 02:07 38.0 C H 57 L 127/59 L 06/14/21 01:37 38.1 C H 58 L 125/62 94 06/14/21 01:07 38.1 C H 56 L 115/56 L 06/14/21 01:06 57 L 20 95 06/14/21 00:37 38.1 C H 56 L 112/54 L 06/14/21 00:02 38.1 C H 56 L 110/54 L 96 06/14/21 00:00 57 L 06/13/21 23:42 38.1 C H 57 L 108/49 L 06/13/21 23:32 38.0 C H 57 L 107/54 L 06/13/21 23:22 38.0 C H 57 L 105/51 L 95 06/13/21 23:12 38.0 C H 54 L 123/54 L 94 06/13/21 23:02 38.0 C H 55 L 121/56 L 94 06/13/21 22:52 38.0 C H 54 L 125/55 L 95 06/13/21 22:42 38.0 C H 57 L 110/49 L 94 06/13/21 22:32 38.0 C H 56 L 109/51 L 94 06/13/21 22:22 38.0 C H 58 L 111/51 L 94 06/13/21 22:12 38.0 C H 56 L 112/51 L 97 06/13/21 22:10 58 L 20 96 06/13/21 22:02 37.9 C H 56 L 110/52 L 97 06/13/21 21:50 37.9 C H 56 L 97 06/13/21 21:40 37.9 C H 57 L 96 06/13/21 21:32 37.9 C H 58 L 111/56 L 96 06/13/21 21:22 37.8 C H 56 L 112/58 L 96 06/13/21 21:12 37.8 C H 57 L 104/53 L 96 06/13/21 21:02 37.8 C H 58 L 113/52 L 96 06/13/21 20:52 37.8 C H 57 L 102/46 L 96 06/13/21 20:42 37.8 C H 58 L 104/48 L 96 06/13/21 20:32 37.7 C H 57 L 106/51 L 96 06/13/21 20:22 37.7 C H 59 L 100/50 L 95 06/13/21 20:12 37.7 C H 61 90/48 L 96 06/13/21 20:02 37.7 C H 62 119/58 L 96 06/13/21 19:52 37.7 C H 62 84/47 L 99 06/13/21 19:42 37.8 C H 64 81/44 L 95 06/13/21 19:35 37.8 C H 63 86/46 L 95 06/13/21 19:26 37.8 C H 65 88/47 L 95 06/13/21 19:25 66 66 21 94 06/13/21 19:11 37.8 C H 65 73/43 L 95 Resident Activity Tracking Resident Involvement: Resident Care Provided Care Provided: Adult Hospital Medicine (1) Acute respiratory failure Respiratory failure complication: hypoxia Qualified Code(s): J96.01 - Acute respiratory failure with hypoxia (2) Acute on chronic renal failure Acute renal failure type: unspecified Chronic kidney disease stage: unspecified stage Qualified Code(s): N17.9 - Acute kidney failure, unspecified; N18.9 - Chronic kidney disease, unspecified
[2021-06-14] MEDS: ALBUTEROL 0.083% NEBU SOLN 3 ML VIAL NEB PRN (07:30)
[2021-06-14] MEDS: HEPARIN SOD 5,000 UNIT/0.5 ML VIAL SQ SCH ×2 (08:00→20:05)
[2021-06-14] MEDS: CLOPIDOGREL BISULFATE 75 MG TAB PO SCH (08:00)
[2021-06-14] MEDS: EZETIMIBE 10 MG TABLET PO SCH (08:00)
[2021-06-14] MEDS: GABAPENTIN 100 MG CAP PO SCH ×3 (08:04→20:05)
[2021-06-14] MEDS: METOPROLOL TARTRATE 25 MG TAB PO SCH ×2 (08:05→20:06)
--- NOTE | 2021-06-14 09:16 | Billing Data ---
Date of Service June 14, 2021 Coding Level of Care Code Critical Care 1st 30-74 mins Time Spent (min) 33
[2021-06-14] MEDS ORDERED: INSULIN GLARGINE SOLOSTAR 100 UNITS/ML 3 ML PEN SC ONE (10:30)
[2021-06-14] MEDS: LEVOTHYROXINE SODIUM 100 MCG in SYRINGE 0 ML IV SCH (11:12)
[2021-06-14] MEDS: FLUCONAZOLE 200 MG/100 ML BAG IV SCH (11:12)
[2021-06-14] MEDS: COLLAGENASE OINT 30 GM TUBE TOP SCH (11:12)
--- NOTE | 2021-06-14 12:49 | Pharmacy Report ---
Pharmacy Abx Dose Short Note - Date of Service June 14, 2021 - Assessment & Plan Assessment * Pharmacy has been consulted to dose VANCOMYCIN and MEROPENEM for sepsis secondary to PNA vs SSTI vs osteomyelitis * Pertinent PMH: recent hospitalization in last 3 months w/ receipt of broad spectrum abx, recent resident of [facility], partial quadriplegic, decubitus ulceration, right heel ulceration s/p surgical debridement of abscess/septic Achilles tendonitis, and OM of right calcaneus- (with esbl E.coli, MRSA, pseudomonas), recurrent UTI, and DMII. Patient had I&D of the right heel ulcer with partial calcanectomy and abx beads on 05/24/21, She is on Diflucan for prophylactic wound coverage of her sacral wound- ID recommended to continue until July, and cefepime for her right foot via PICC line. * Blood, sputum, and urine cx's collected. Urine growing GPC * MRSA nasal swab positive * ALIX present on admission and my be slightly worse (SCr 2.29 today) and UOP very low, baseline appears to be ~1.1-1.3 Plan Vancomycin * 1500mg (~21mg/kg) IV load x 1 given in ED yesterday * Random level this AM = 28.7 * Will recheck random level in 12 hours to help calculate elimination rate. Pt likely will not need redosed until tomorrow with current renal fxn. * Pharmacy has dosed vancomycin for this patient in the past and a dose of 500mg IV Q 24 hrs produced desirable levels when ALIX not present. Given slow elimination with baseline renal fxn, will dose vanco per level at this time. Will check random level w/ AM labs tomorrow. Plan to redose when level 15- 20mcg/mL or anticipated to be so. * Goal trough level for sepsis/osteo/pulm infxn : 15 to 20 mcg/mL, or AUC/VILLA 400-600 Meropenem * eCrCl 10-24cc/min, 500mg IV Q 12 hours indicated for pulm/SSTI/osteo indications Pharmacy will continue to follow and will adjust dose/frequency as necessary. Thank you.
[2021-06-14] MEDS ORDERED: ETOMIDATE 2 MG/ML 20 ML VIAL IV ONE ×2 (13:25→13:58)
[2021-06-14] MEDS ORDERED: ROCURONIUM BROMIDE 10 MG/ML 5 ML VIAL IV ONE ×4 (13:25→14:07)
--- NOTE | 2021-06-14 13:48 | Billing Data ---
Date of Service June 14, 2021 Coding Level of Care Code Critical Care 1st 30-74 mins Time Spent (min) 42
--- NOTE | 2021-06-14 13:49 | Procedure Note ---
Procedure Note Date of Service June 14, 2021 Note INTUBATION PROCEDURE NOTE: Dr. Clovis Kimball A time-out was completed verifying correct patient, procedure, site, positioning. Patient was evaluated and required intubation for acute hypoxemic respiratory failure and altered mental status Sedative agent used: 100 mg etomidate Paralysis agent used: 50 mg rocuronium Emergent consent was implied given patients rapidly declining clinical status and need for airway protection. Number of attempts: 1 The patient was prepared in the appropriate fashion. Sedation was achieved utilizing etomidate and rocuronium. The patient was easily ventilated using [id number] to achieve adequate oxygenation. A 7.5 Turkish endotracheal tube was placed under video laryngoscope guidance to 23 cm at the lip. The stylette was removed and balloon was inflated with 10mL of air. Appropriate Colorimetric change was appreciated. Bilateral breath sounds were heard without air sounds in the abdomen. Post Intubation Chest X-ray ordered Patient tolerated the procedure well and there were no immediate complications. Coding CPT Codes Resuscitation - Resuscitation: 81407 Endotracheal Intubation, emergency ([id number]) [facility] [place] Procedure Codes (Charges) Resuscitation Resuscitation: 27182 Endotracheal Intubation, emergency
--- NOTE | 2021-06-14 13:53 | Procedure Note ---
Procedure Note Date of Service June 14, 2021 Note PREOPERATIVE DIAGNOSIS: Mucous plugging POSTOPERATIVE DIAGNOSIS: Mucous plugging multifocal pneumonia PROCEDURE PERFORMED: Flexible fiberoptic bronchoscopy for clearance of airways COMPLICATIONS: None. INDICATION: Hypoxemic respiratory failure and mucous plugging Procedure: Timeout was performed. The procedure. Consent was signed and obtained from the patient's daughter yesterday. She received etomidate and rocuronium for the preceding intubation and was adequately sedated with these medications during the bronchoscopy. I inserted the bronchoscope via endotracheal tube. Large amount of thick white mucus was noted bilaterally in the left main and right mainstem bronchus. This was suctioned clear. I did extensive suctioning of the left tracheobronchial tree. Friable mucosa was noted in the left lower lobe and left upper lobe. There was spillage of secretions over to the right lung which were aspirated. Inspection of the bronchial tree to the subsegmental region was completed. No obvious signs of bleeding. Patient tolerated the bronchoscopy well. The scope was then withdrawn. Saturations improved dramatically post bronchoscopy. Patient to remain intubated today. Chest x-ray pending. Coding CPT Codes Pulmonary/Thoracic - Pulmonary and Thoracic: 74060 Bronchoscopy, clear airways ([id number]) [facility] [place] Procedure Codes (Charges) Pulmonary/Thoracic Procedure 2: Pulmonary and Thoracic: 24493 Bronchoscopy, clear airways
[2021-06-14] MEDS ORDERED: STAT IV Infusion **Titration per Protocol STA (13:58)
[2021-06-14] MEDS ORDERED: fentaNYL DRIP 1,250 MCG/250 ML BAG IV SCH (14:00)
[2021-06-14] MEDS: AZITHROMYCIN 250 MG in DEXTROSE 5% 250 ML IV SCH (14:11)
[2021-06-14] MEDS: FAMOTIDINE 20 MG in SYRINGE 3 ML IV SCH (14:15)
--- NOTE | 2021-06-14 14:23 | Pharmacy Report ---
Pharmacy Glycemic Short Note 2 - Date of Service June 14, 2021 - Glycemic Short BSG Results (Last 24 hours): 06/13/21 06/13/21 06/13/21 14:55 14:55 15:56 Glucose 259 H POC Glucose 475 H* 255 H 06/13/21 06/13/21 06/13/21 18:04 19:05 20:07 Glucose POC Glucose 229 H 229 H 213 H 06/13/21 06/13/21 06/13/21 21:05 22:14 23:17 Glucose POC Glucose 239 H 240 H 252 H 06/14/21 06/14/21 06/14/21 00:04 01:06 02:09 Glucose POC Glucose 236 H 229 H 213 H 06/14/21 06/14/21 06/14/21 03:05 04:08 04:40 Glucose 164 H POC Glucose 207 H 183 H 06/14/21 06/14/21 06/14/21 05:06 05:59 06:56 Glucose POC Glucose 162 H 157 H 140 H 06/14/21 06/14/21 06/14/21 09:12 10:15 11:20 Glucose POC Glucose 108 H 95 108 H 06/14/21 06/14/21 12:05 13:15 Glucose POC Glucose 96 91 OUTPATIENT ANTIDIABETIC REGIMEN: * Lantus 20 units Q HS * Novolog per sliding scale ASSESSMENT: 06/14 * This AM patient is off pressors, hydrocortisone dose reduced and pt is now extubated * Insulin infusion rates have dropped as BSGs fell into the low 100s * Pt will remain NPO today * Will transition off insulin drip today 06/13 * Critically ill, type 2 diabetic admitted for septic shock, currently intubated, receiving broad spectrum abx, ordered norepi for pressure support as well as stress dose hydrocortisone for possible relative adrenal insufficiency / myxedema. * Initial GLU in ER mid 200s however is now 475 * IV insulin drip initiated per ICU hyperglycemia protocol as ordered by admitting provider: goal range 110-180, severe/high stress protocol. K+ 4.5 on initial chemistry. This would be the standard of care for a patient with current stressors in ICU. PLAN FOR INPATIENT GLYCEMIC CONTROL: * Basal insulin * Lantus 10 units x 1 this AM, then BID per scale: 0 units if BSG less than 140, 8 units if BSG greater than or =140 * DC insulin drip at least 2 hours after 1st Lantus dose given * Bolus insulin * Novolog SQ Q 4 hours * Goal range: 110 - 140 mg/dL * Correction factor: 30 mg/dL/unit * Nutritional / Prandial insulin per carb ratio: 10 gm CHO / unit PLAN FOR DISCHARGE: * to be determined
--- NOTE | 2021-06-14 14:31 | Palliative Care Consultation ---
Date of Consultation June 14, 2021 Assessment & Plan (1) Altered mental status: with hypoxia (2) Palliative care encounter: I called her daughter, Anna nAtonio, in [place] to discuss goals of care. She tells me that she and her mother have discussed her goals in the past. She is confident that her mother would want any intervention necessary to prolong her life. She would want reintubation if indicated. We discussed what was most important to Anette, and Anna said that "living" was most important. Her activities are limited due to quadriplegia and her enjoyment comes mostly from interacting with her family. I asked her if there were any limitations to her care or any conditions or procedures that she felt would not be tolerable for Anette and she indicated that there would not. She restated that she would want every measure necessary to prolong her life. Discussed with Dr. Kimball. Palliative care will follow peripherally. Anette subsequently declined from a respiratory standpoint and has been reintubated. She has also had repeat bronchoscopy and lavage. I updated Anna and answered her questions about Anette's current support and treatment plan. (3) Chronic incomplete quadriplegia: (4) Diabetes type 2, controlled: Diabetes mellitus intermodal dispatcher insulin use: unspecified half-way insulin use status Diabetes mellitus complication status: without complication Qualified Code(s): E11.9 - Type 2 diabetes mellitus without complications (5) Acute respiratory failure: Respiratory failure complication: hypoxia Qualified Code(s): J96.01 - Acute respiratory failure with hypoxia (6) Acute on chronic renal failure: Acute renal failure type: unspecified Chronic kidney disease stage: unspecified stage Qualified Code(s): N17.9 - Acute kidney failure, unspecified; N18.9 - Chronic kidney disease, unspecified History of Present Illness Reason for Consultation: goals of care Requesting Physician: Dr. Kimball Attending Physician: David Lofton MD History of Present Illness 75 yo lady with partial functional quadriplegia after previous back surgery. She is a resident at [facility]. She was hospitalized yesterday with symptoms of hypoxia and mental status change. She was intubated for acute hypoxic respiratory failure and had bronchoscopy and lavage performed by Dr. Kimball. She was noted to have a left upper lobe collapse and large mucous plug with friable bronchial tissue. She did well after bronchoscopy and was extubated this morning. However, she does have periods of desaturation and has required bipap with FiO2 of 60-100. She is not able to participate in any goals of care discussion at this time. Allergies Allergy/AdvReac Type Severity Reaction Status Date / Time acesulfame Allergy Unknown Unknown Verified 06/13/21 12:16 aspartame Allergy Unknown Unknown Verified 06/13/21 12:16 [From Nutrasweet Aspartame] saccharin Allergy Unknown Unknown Verified 06/13/21 12:16 sucralose Allergy Unknown Unknown Verified 06/13/21 12:16 mold Allergy Unknown Verified 06/13/21 12:16 pollen extracts Allergy Unknown Verified 06/13/21 12:16 Home Medications Medication Instructions Recorded Confirmed Type acetaminophen 325 mg tablet 650 mg PO Q6 PRN 01/30/21 06/13/21 History (Tylenol) albuterol sulfate 90 mcg/actuation 2 puff INHALATION Q4 PRN 01/30/21 06/13/21 History aerosol inhaler (Proventil HFA) ascorbic acid (vitamin C) 500 mg 500 mg PO BID 01/30/21 06/13/21 History tablet (Vitamin C) baclofen 10 mg tablet 10 mg PO HS PRN 01/30/21 06/13/21 History baclofen 5 mg tablet 5 mg PO BID PRN 01/30/21 06/13/21 History bisacodyl 10 mg rectal suppository 10 mg MN UD PRN 01/30/21 06/13/21 History (Dulcolax (bisacodyl)) ezetimibe 10 mg tablet (Zetia) 10 mg PO DAILY 01/30/21 06/13/21 History gabapentin 100 mg capsule 100 mg PO TID 01/30/21 06/13/21 History insulin aspart U-100 100 unit/mL 0 sliding scale dose SUBCUT UD 01/30/21 06/13/21 History subcutaneous solution (Novolog U-100 Insulin aspart) insulin glargine 100 unit/mL 20 unit SUBCUT QPM 01/30/21 06/13/21 History subcutaneous solution (Lantus U-100 Insulin) magnesium oxide 400 mg PO DAILY 01/30/21 06/13/21 History multivitamin 1 tab PO DAILY 01/30/21 06/13/21 History ondansetron HCl 4 mg tablet 4 mg PO Q6H PRN 01/30/21 06/13/21 History (Zofran) peg 400-propylene glycol 0.4 %-0.3 1 drp OPHTHALMIC (EYE) QPM 01/30/21 06/13/21 History % eye gel drops (Systane Gel) polyethylene glycol 3350 17 gram 17 g PO DAILY 01/30/21 06/13/21 History oral powder packet (Miralax) fluconazole 100 mg tablet 200 mg PO DAILY 30 Days #60 tab 02/06/21 06/13/21 Rx Saccharomyces boulardii 250 mg 250 mg PO BID 04/17/21 06/13/21 History capsule (Florastor) bismuth subsalicylate 262 mg/15 mL 524 mg PO QID 04/26/21 06/13/21 History oral suspension (Pepto-Bismol) sodium phosphates 19 gram-7 118 ml MN DAILY PRN 04/26/21 06/13/21 History gram/197 mL enema (Fleet Enema Extra) benzonatate 200 mg capsule 200 mg PO TID 05/13/21 06/13/21 History fluticasone propionate 50 2 spray INTRANASAL DAILY 05/18/21 06/13/21 History mcg/actuation nasal spray,suspension acetaminophen 325 mg tablet 650 mg PO Q4H PRN #0 tab 05/30/21 06/13/21 Rx cefepime 2 gram solution for 2 g IV Q12H #1 ea 05/30/21 06/13/21 Rx injection clopidogrel 75 mg tablet 75 mg PO QAM #0 tab 05/30/21 06/13/21 Rx Magic Mouthwash 5 ml PO QID PRN 06/13/21 06/13/21 History levothyroxine 125 mcg tablet 125 mcg PO DAILY 06/13/21 06/13/21 History magnesium hydroxide 400 mg/5 mL 30 ml PO BID PRN 06/13/21 06/13/21 History oral suspension metoprolol tartrate 25 mg tablet 25 mg PO BID 06/13/21 06/13/21 History vancomycin 500 mg intravenous 500 mg IV BID 06/13/21 06/13/21 History solution Patient History Medical History Adnexal cyst Adnexal tumor Altered mental status Anemia CAD (coronary artery disease) [place] infection Cardiomyopathy Chronic incomplete quadriplegia Depression Diabetes type 2, controlled Dysphagia History of DVT (deep vein thrombosis) 02/26/20 LLE History of mechanical ventilation History of MD (myocardial infarction) 2004 History of renal cell cancer HTN (hypertension) Hyperlipemia Hypothyroid Insomnia Ischemic cardiomyopathy Major depressive disorder Mass of left thigh 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) MRSA (methicillin resistant staph aureus) culture positive Myelodysplasia (myelodysplastic syndrome) Neurogenic bowel Pneumonia Respiratory failure, post-operative Seasonal asthma Thrombocytopenia UTI (urinary tract infection) Surgical History H/O excision of lamina of cervical vertebra for decompression of spinal cord H/O percutaneous transluminal coronary angioplasty History of esophagogastroduodenoscopy (EGD) History of right nephrectomy History of thyroidectomy Hx of colonoscopy S/P cardiac catheterization S/P cervical spinal fusion S/P cholecystectomy Social History Smoking Status: Unknown if ever smoked Hx Alcohol Use: No Hx Substance Use: No Preferred Language: Hungarian Communication Ability: Unable Mortgage Processing 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 Required: No Beliefs That Will Affect Care: None marital status: / Current Living Situation: [facility] Current Living Situation Comment: [facility] current occupational status: disabled How many Children do You have: 2 Feels Safe at Home: Yes caffeine: Yes Physical Activity Frequency: Does not Exercise Assistive Devices: Mechanical Lift and Oxygen - Continuous Review of Systems Review of Systems: Unobtainable due to reduced consciousness Physical Exam Constitutional: + acute distress and + ill appearing Respiratory: + respiratory distress and + uses accessory muscles bipap Cardiovascular: Rate/Rhythm: regular rate and regular rhythm Neurologic: + not awake bilateral upper and lower extremity weakness Genitourinary: [place] catheter Results & Data ([facility]) Vital Signs (Past 12 Hours) Vital Signs Temp Pulse Pulse Resp BP Pulse Ox 06/14/21 14:00 98.1 F 67 141/76 H 91 06/14/21 13:58 66 14 91 06/14/21 13:07 98.1 F 67 18 138/69 92 06/14/21 12:45 68 18 93 06/14/21 12:07 98.4 F 61 14 140/72 97 06/14/21 11:07 98.6 F 74 19 151/73 H 91 06/14/21 10:56 78 21 95 06/14/21 10:07 98.8 F 60 128/75 94 06/14/21 09:07 99.0 F 53 L 98/58 L 94 06/14/21 08:37 99.1 F 57 L 111/61 93 06/14/21 08:07 99.3 F 65 114/68 89 L 06/14/21 08:00 53 L 06/14/21 07:47 20 92 06/14/21 07:40 17 06/14/21 07:37 99.3 F 67 73/53 L 92 06/14/21 07:35 54 L 20 93 06/14/21 07:07 99.3 F 52 L 113/63 94 06/14/21 06:07 99.9 F H 54 L 101/65 92 06/14/21 05:37 99.9 F H 55 L 104/62 91 06/14/21 05:00 100.2 F H 57 L 89 L 06/14/21 04:37 100.2 F H 65 103/58 L 92 06/14/21 04:26 54 L 20 95 06/14/21 04:07 100.2 F H 55 L 105/58 L 95 06/14/21 03:37 100.2 F H 54 L 104/57 L 96 06/14/21 03:07 100.2 F H 55 L 104/59 L 95 06/14/21 02:37 100.4 F H 56 L 103/59 L 95 PG Care Time/CCT Total # of Minutes Spent Total Time Spent: 75 Total Time Spent with Patient: Total time spent is greater than 50% in coordination of care (as documented) at patient's floor/unit and/or counseling patient: goals of care, code status, family education and support Coding Level of Care Code 32207 Initial Inpt Care Lvl 3 Diagnoses Altered mental status R41.82 Palliative care encounter Z51.5 Chronic incomplete quadriplegia G82.50 Diabetes type 2, controlled E11.9 Diabetes mellitus half-way insulin use: unspecified intermodal dispatcher insulin use status Diabetes mellitus complication status: without complication Acute respiratory failure J96.01 Respiratory failure complication: hypoxia Acute on chronic renal failure N17.9; N18.9 Acute renal failure type: unspecified Chronic kidney disease stage: unspecified stage
--- NOTE | 2021-06-14 14:43 | XRay Report ---
XR chest 1V portable HISTORY: s/p intubation and bronchoscopy COMPARISON: Chest 06/14/2021. FINDINGS: No pneumothorax. No pleural effusions. The heart is normal in size. Endotracheal tube termi nates 2.8 cm from the kati. Nasogastric tube terminates below the diaphragm. Right PICC terminates in the proximal SVC. Cervical spinal fusion hardware is noted. Left greater than right patchy bibasil ar airspace opacities consistent with a pneumonia. This has slightly improved. The heart is normal in size. IMPRESSION: 1. Satisfactory support line placement. 2. Patchy bibasilar airspace opacities have slightly improved. ACT 112: Negative or not required by law. Electronically signed by: Param Hwang M.D. 06/14/2021 2:41 PM
[2021-06-14] MEDS ORDERED: PEPTAMEN 1.5 CAL 1,000 ML BAG OG SCH (15:15)
--- NOTE | 2021-06-14 17:02 | Hospitalist Progress Note ---
Date of Service June 14, 2021 Assessment & Plan (1) Multifocal pneumonia: Plan: Anette is a 75-year-old female with a past medical history of anemia, coronary artery disease, hypertension, hypothyroidism, chronic incomplete quadriplegia, type 2 diabetes mellitus, UTI, osteomyelitis, and pressure ulcers who presented with acute hypoxic respiratory failure 2/2 multifocal pneumonia requiring ICU level of care. Sepsis and acute hypoxic respiratory failure 2/2 multifocal pneumonia with mucous plugging Bronchoscopy performed by ICU/pulmonary. Multifocal mucous plugging and secretions appreciated Per ICU team, continue broad-spectrum antibiotics (azithromycin, meropenem, Comycin) MRSA nare positive Patient declined with trial of extubation, reintubated 06/14. Continue ventilation parameters per ICU, sedation/paralysis per ICU Hydrocortisone per ICU recommendations (2) Sepsis: Plan: On admission met SIRS and qSOFA criteria 2/2 multifocal pneumonia as managed above Lactate 1.7 on admission, white blood cell count 21, PCT 0.46 on admission Patient continues to remain critically ill requiring ICU level of care Continue prior support per ICU recommendations, norepinephrine currently paused (3) Hypoxia: Plan: As above (4) Osteomyelitis: Plan: Prior to admission on cefepime as outpatient following meropenem/vancomycin Antibiotics as above, covered with meropenem/vancomycin/azithromycin (5) Acute on chronic renal failure: Plan: ALIX, worsening Baseline 1.61.8 Uptrending to 2.3 2/2 sepsis/pneumonia and prerenal Continue pressor support and volume per ICU recommendationsBMP daily (6) Quadriplegia: Plan: As per HPI - continue with PT/OT and splints (7) Hypothyroid: Plan: Continue home Synthroid, recently uptitrated (8) CAD (coronary artery disease): Plan: Stable - Continue: Plavix, BB, and Zetia (9) Chronic osteomyelitis: Plan: As above (10) S/P PICC central line placement: (11) Diabetes type 2, controlled: Plan: Pharmacy-see me consult Patient on basal/bolus insulin prior to admission Continue basal bolus insulin per ICU recommendations Plan: CODE STATUS: Full code, case discussed by palliative care with patient's daughter Anna. Per Dr. Lambert's discussion patient's daughter is confident her mother would want any intervention required to prolong her life including reintubation and that "living "is the most important to her, and recognizes that her activities are limited at baseline due to her quadriplegia and enjoyment mostly comes from interacting with family. Admission and Anticipated Discharge Date Admission Date: June 13, 2021 Subjective Subjective unavailable due to ETT Review of Systems Review of Systems: Unobtainable due to endotracheal tube Physical Exam Physical Exam: General: ETT in place, no acute distress HEENT: Atraumatic, normocephalic. Pulm: Diminished left greater than right, moderate air movement, no rale s/rhonchi symmetrical chest rise. No increase work of breathing. No respiratory distress. Cardiac: RRR, -mrg. Radial pulses intact and symmetrical. Abdominal: Soft, nondistended Results & Data Results & Data ([facility]) Vital Signs (Past 12 Hours) Vital Signs Temp Pulse Pulse Resp BP Pulse Ox 06/14/21 15:17 63 15 91 06/14/21 14:52 91 06/14/21 14:00 36.7 C 67 141/76 H 91 06/14/21 13:58 66 14 91 06/14/21 13:07 36.7 C 67 18 138/69 92 06/14/21 12:45 68 18 93 06/14/21 12:07 36.9 C 61 14 140/72 97 06/14/21 11:07 37.0 C 74 19 151/73 H 91 06/14/21 10:56 78 21 95 06/14/21 10:07 37.1 C 60 128/75 94 06/14/21 09:07 37.2 C 53 L 98/58 L 94 06/14/21 08:37 37.3 C 57 L 111/61 93 06/14/21 08:07 37.4 C 65 114/68 89 L 06/14/21 08:00 53 L 06/14/21 07:47 20 92 06/14/21 07:40 17 06/14/21 07:37 37.4 C 67 73/53 L 92 06/14/21 07:35 54 L 20 93 06/14/21 07:07 37.4 C 52 L 113/63 94 06/14/21 06:07 37.7 C H 54 L 101/65 92 06/14/21 05:37 37.7 C H 55 L 104/62 91 PG Care Time/CCT Total # of Minutes Spent Total Time Spent with Patient: Total time spent is greater than 50% in coordination of care (as documented) at patient's floor/unit and/or counseling patient: Coding Level of Care Code None Diagnoses Hypoxia R09.02 Sepsis A41.9 Osteomyelitis M86.9 Acute on chronic renal failure N17.9; N18.9 Quadriplegia G82.50 Hypothyroid E03.9 Hypothyroidism type: unspecified CAD (coronary artery disease) I25.10 Coronary Disease-Associated Artery/Lesion type: [place] artery [place] vs. 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 transplanted heart: [place] heart Associated angina: without angina Qualified Code(s): I25.10 - Atherosclerotic heart disease of [place] coronary artery without angina pectoris (3) Diabetes type 2, controlled Diabetes mellitus shelter insulin use: unspecified shelter insulin use status Diabetes mellitus complication status: without complication Qualified Code(s): E11.9 - Type 2 diabetes mellitus without complications
[2021-06-14] MEDS: TUBE FEEDING WATER FLUSH GT SCH ×2 (17:54→20:04)
[2021-06-14] MEDS ORDERED: LACTATED RINGER'S 500 ML IV ONE (18:06)
[2021-06-14] MEDS: SODIUM CHLOR 7% 4 ML NEB NEB SCH (19:24)
[2021-06-14] MEDS ORDERED: INSULIN GLARGINE SOLOSTAR 100 UNITS/ML 3 ML PEN SC SCH ×2 (21:00)
[2021-06-15] MEDS: INSULIN ASPART 100 UNITS/ML 3 ML PEN SC SCH ×7 (00:22→21:08)
[2021-06-15] MEDS: TUBE FEEDING WATER FLUSH GT SCH ×6 (00:23→21:08)
[2021-06-15] MEDS: HYDROCORTISONE SOD 50 MG in SYRINGE 0 ML IV SCH ×3 (00:23→21:11)
[2021-06-15] MEDS: LACTATED RINGER'S 1,000 ML IV SCH ×2 (00:24→12:00)
[2021-06-15] MEDS: MEROPENEM 500 MG in SYRINGE 0 ML IV SCH ×2 (00:24→12:00)
[2021-06-15 05:28] LABS: Basophils # (auto) 0.01 K/uL (0-0.2); Basophils % (auto) 0.1 %; Eosinophils # (auto) 0.04 K/uL (0-0.5); Eosinophils % (auto) 0.4 %; Hematocrit (blood only) 26.5 % (37-47); Hemoglobin 8.3 g/dL (12.0-16.0); Immature Granulocytes # (auto) 0.07 K/uL (0.00-0.02); Immature Granulocytes % (auto) 0.6 %; Lymphocytes # (auto) 0.66 K/uL (1.2-3.4); Lymphocytes % (auto) 6.1 %; Mean Corpuscular Hemoglobin 33.7 pg (25-34); Mean Corpuscular Hgb Conc 31.3 g/dL (32-36); Mean Corpuscular Volume 107.7 fL (80-100); Mean Platelet Volume 10.6 fL (7.4-10.4); Monocytes # (auto) 0.44 K/uL (0.11-0.59); Neutrophils # (auto) 9.66 K/uL (1.4-6.5); Neutrophils % (auto) 88.8 %; Platelet Count 474 K/uL (130-400); RDW Coefficient of Variation 14.6 % (11.5-14.5); RDW Standard Deviation 57.4 fL (36.4-46.3); Red Blood Count 2.46 M/uL (4.2-5.4); White Blood Count 10.88 K/uL (4.8-10.8)
[2021-06-15 05:36] LABS: iSTAT Allen Test Pass; iSTAT Art Bld Gas pCO2 Correct 35 mmHg (35-46); iSTAT Art Bld Gas pH Corrected 7.338 (7.35-7.45); iSTAT Arterial Blood Gas HCO3 19 meg/L (19-24); iSTAT Arterial Blood Gas pCO2 36 mmHg (35-46); iSTAT Arterial Blood Gas pH 7.34 (7.35-7.45); iSTAT Arterial Blood Gas pO2 64 mmHg (80-95); iSTAT Arterial Blood Gas pO2 C 63; iSTAT Carbon Dioxide 20 mmol/L (24-31); iSTAT FiO2 30 %; iSTAT Hematocrit 23 % (37-47); iSTAT Hemoglobin 7.8 g/dl (12.0-16.0); iSTAT Potassium 5.2 mmol/L (3.3-5.0); iSTAT Site L Radial; iSTAT Sodium 140 mmol/L (135-144)
[2021-06-15 05:38] LABS: INR 1.1 (0.9-1.1); Partial Thromboplastin Time 27.3 Seconds (21.0-31.0); Prothrombin Time 11.2 Seconds (9.0-12.0)
[2021-06-15 06:01] LABS: BUN Creatinine Ratio 20.8 (10-20); Calcium 8.4 mg/dl (8.5-10.1); Creatinine Clr Calc Pharmacy 14.3 ml/min; Est GFR (African American) 15.9 ml/min; Est GFR (Non-African American) 13.7 ml/min; Magnesium 2.8 mg/dl (1.8-2.4); Potassium 5.2 mmol/L (3.5-5.1)
[2021-06-15 06:22] LABS: Phosphorus 4.8 mg/dl (2.5-4.9)
[2021-06-15] MEDS: SODIUM CHLOR 7% 4 ML NEB NEB SCH ×2 (07:08→19:34)
--- NOTE | 2021-06-15 07:43 | XRay Report ---
XR chest 1V portable CLINICAL HISTORY: f/u COMPARISON STUDY: Chest CT June 13, 2021. Chest radiograph August 14, 2021. FINDINGS: Tip of endotracheal tube is 3.8 cm above the kati. Tip of nasogastric tube is below the l ower aspect of this image but at least within the proximal stomach. Cardiomegaly is unchanged. There is no evidence for pulmonary edema. There is no pneumothorax. No pleural effusion is identified. Mult ifocal left lung opacities are similar to prior exam. IMPRESSION: 1. Satisfactory positioning of the endotracheal tube. 2. No significant change in left lung airspace opacities. ACT 112: Negative or not required by law. Electronically signed by: Maynor Gonzalez M.D. 06/15/2021 7:41 AM
--- NOTE | 2021-06-15 07:56 | Critical Care Progress Note ---
Date of Service June 15, 2021 Assessment & Plan (1) Acute respiratory failure: Plan: Assessment: 75yo female with a PMH of incomplete quadriplegia 2/2 spinal surgery complications, HTN, CAD, DM2, CKD, recurrent ESBL UTI 2/2 chronic indwelling catheter, pressure ulcers leading to osteomyelitis, and hypothyroidism presented to the ED with SOB, admitted to the ICU for acute respiratory failure. Critical care indication: need for mechanical ventilation, need for pressor support Plan: Neurologic CAM ICU: Negative Sedation, analgesia: fentanyl Cardiac BP stable at this time, off vasopressors Continue with home metoprolol Continue home clopidogrel, ezetimibe Respiratory -- VDRF Likely secondary to mucous plugging with aspiration pneumonia Continue with ventilatory support Keep RASS -1 Daily sedation holidays and SBT's COVID-19 PCR negative Nasal MRSA positive Procalcitonin 0.46 Patient with history of tobacco use, though without known pulmonary disease Suspect ARF secondary to mucous plugging, sepsis, aspiration Patient underwent bronchoscopy (06/13) and repeat bronchoscopy on 06/14 with clearing of mucus --> blood culture growing yeast which is most likely a coloni zer Gastrointestinal No history of GERD, Pepcid Renal/electrolytes History of CKD, baseline Cr of 1.6-1.8 ALIX on admission with Cr elevated to 2.04, has slightly worsened to 2.3 with IVF Replete electrolytes as needed Genitourinary VRE in the urine Strict I/O's Endocrine ICU hyperglycemia protocol Continue home levothyroxine Hematologic Monitor H&H, transfuse if hemoglobin less than 7 Blood type: B positive Infectious disease Blood cultures negative to date, urine culture growing VRE --> daptomycin st arted History notable for recent 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 Chronically on fluconazole. --Prophylaxis VTE: Heparin GI: Pepcid Lines: Right arm PICC, positive [place] Diet: Tube feeds Plan: In/out: +2.5 L, urine output 100 mL ABG 7.34/36/64 Off Levophed. Patient is actually hypertensive. Metoprolol has been restarted Titrate down hydrocortisone to every 12 and I will gradually take it off in the next couple of days Patient's urine is growing VRE. We will start the patient on daptomycin For the aspiration pneumonia with nasal MRSA positive continue with vancomycin, DC meropenem and give cefepime instead Patient is on chronic fluconazole for underlying sacral decubitus osteomyelitis. Patient creatinine is going up, urine output has gone down. We will consider dose of Lasix later today For hyperkalemia Kayexalate given to the patient. Repeat BMP later today Start the patient on pressure support today. We will give another trial of extubation tomorrow. I have personally spent 41 minutes of critical care time in the direct management of this patient. This is a life/limb threatening event. This includes time spent evaluating patient, direct bedside care, chart review, placing orders, interpretation of diagnostic studies, discussion with consultants, patient, and family members, as well as other required patient management activities. This time is exclusive of all separately billable procedures, and teaching time and separate from and in addition to any other critical care service time. Please note the above document was generated using voice recognition software. It may contain grammatical, syntax or spelling errors. (2) Multifocal pneumonia: (3) Acute on chronic renal failure: (4) Chronic osteomyelitis: (5) Altered mental status: Admission and Anticipated Discharge Date Admission Date: June 13, 2021 Subjective Patient seen and examined at bedside. No acute distress, no adverse events overnight. Yesterday patient was extubated but she failed extubation was reintubated. Bronchoscopy was done yesterday. Patient was on fentanyl twenty-five at the time of examination She is following commands. Denies any headache, no chest pain. Review of Systems Review of Systems: Unobtainable due to endotracheal tube Physical Exam Physical Exam: Constitutional: No acute distress HEENT: EOMI, PERRLA, positive ETT Respiratory system: Decreased air entry bilaterally, more decreased on the left side, no wheeze, no rhonchi, positive crackles bilateral lower lobes CVS: S1-S2 positive, no murmurs or gallops Abdomen: Soft, nontender, nondistended, positive bowel sounds x4 Extremities: +2 pulses bilaterally radialis/ dorsalis pedis, no cyanosis, +1 pitting edema bilateral lower extremity, positive sacral decub Neuro: Awake alert oriented Psych: Normal mood and affect G/U: Positive [place] Skin: no rashes, warm and dry Lymphatic: no cervical or axillary lymphadenopathy Results & Data Results & Data ([facility]) Vital Signs (Past 12 Hours) Vital Signs Temp Pulse Resp BP Pulse Ox Pulse Ox 06/15/21 05:25 37.1 C 57 L 143/70 H 97 06/15/21 05:20 59 L 17 95 06/15/21 04:25 37.0 C 76 144/85 H 97 06/15/21 03:25 37.0 C 60 147/77 H 96 06/15/21 02:25 37.0 C 51 L 128/65 99 06/15/21 01:25 37.1 C 53 L 132/69 99 06/15/21 01:20 52 L 15 98 06/15/21 00:25 37.1 C 60 136/72 97 06/14/21 23:25 37.1 C 53 L 137/69 98 06/14/21 22:25 37.1 C 57 L 135/66 98 06/14/21 21:45 59 L 15 98 06/14/21 21:25 37.0 C 59 L 143/74 H 98 06/14/21 20:25 36.9 C 56 L 129/67 95 06/14/21 20:00 95 06/15/21 05:04 06/15/21 05:04 Coding Level of Care Code Critical Care 1st 30-74 mins Diagnoses Acute respiratory failure J96.01 Respiratory failure complication: hypoxia Multifocal pneumonia J18.9 Acute on chronic renal failure N17.9; N18.9 Acute renal failure type: unspecified Chronic kidney disease stage: unspecified stage Chronic osteomyelitis M86.60 Altered mental status R41.82 Time Spent (min) 41 (1) Acute respiratory failure Respiratory failure complication: hypoxia Qualified Code(s): J96.01 - Acute respiratory failure with hypoxia (2) Acute on chronic renal failure Acute renal failure type: unspecified Chronic kidney disease stage: unspecified stage Qualified Code(s): N17.9 - Acute kidney failure, unspecified; N18.9 - Chronic kidney disease, unspecified
[2021-06-15] MEDS: GABAPENTIN 100 MG CAP PO SCH ×3 (08:32→21:09)
[2021-06-15] MEDS: CLOPIDOGREL BISULFATE 75 MG TAB PO SCH (08:37)
[2021-06-15] MEDS: METOPROLOL TARTRATE 25 MG TAB PO SCH ×2 (08:38→21:10)
[2021-06-15] MEDS: EZETIMIBE 10 MG TABLET PO SCH (08:41)
[2021-06-15] MEDS: COLLAGENASE OINT 30 GM TUBE TOP SCH (08:42)
[2021-06-15] MEDS: HEPARIN SOD 5,000 UNIT/0.5 ML VIAL SQ SCH ×2 (08:43→21:10)
--- NOTE | 2021-06-15 08:55 | Pharmacy Report ---
Pharmacy Abx Dose Short Note - Date of Service June 15, 2021 - Assessment & Plan Assessment 75 year old F receiving IV Vancomycin and Meropenem for treatment of sepsis secondary to PNA vs SSTI vs osteomyelitis Day # 3 of antimicrobial therapy. * Renal function continues to decline with sCr incr' to 3.17 mg/dL (from 2.29 mg/dL) and CrCl decr' to 14 mL/min (from 20 mL/min) * Last Vancomycin dose was 1500mg IV x 1 on 06/13 @ 1157 Plan Vancomycin * Random level of 25.6 mcg/mL drawn 06/15/21 @ 0504 is supratherapeutic; essentially unchanged from last random level drawn ~9 hours earlier (was 25.4 mg/dL on 06/14/21 @ ~2000) * Continue to *HOLD* Vancomycin given sustained supratherapeutic level in setting of worsened renal function * Goal trough level for sepsis : 15 to 20 mcg/mL * Random level ordered for: 06/16/21 with AM labs to reassess when next Vancomycin level is due Meropenem * Continue Meropenem 500mg IV q12 for CrCl 10-24 mL/min; this will need decreased to q24 if CrCl continues to decline <10 mL/min Pharmacy will continue to follow and will adjust dose/frequency as necessary. Thank you.
[2021-06-15] MEDS ORDERED: INSULIN GLARGINE SOLOSTAR 100 UNITS/ML 3 ML PEN SC SCH (09:00)
[2021-06-15] MEDS ORDERED: PATIROMER CALCIUM SORBITEX 8.4 GM PACK PO SCH (09:00)
[2021-06-15] MEDS ORDERED: SODIUM POLYSTYRENE SULFONATE 15G/60ML SUSP PO STA (09:25)
[2021-06-15] MEDS: LEVOTHYROXINE SODIUM 100 MCG in SYRINGE 0 ML IV SCH (09:44)
--- NOTE | 2021-06-15 10:01 | Pharmacy Report ---
Pharmacy Glycemic Short Note 2 - Date of Service June 15, 2021 - Glycemic Short BSG Results (Last 24 hours): 06/14/21 06/14/21 06/14/21 10:15 11:20 12:05 Glucose POC Glucose 95 108 H 96 06/14/21 06/14/21 06/14/21 13:15 17:40 20:00 Glucose POC Glucose 91 146 H 132 H 06/15/21 06/15/21 06/15/21 00:19 05:04 08:22 Glucose 195 H POC Glucose 145 H 199 H OUTPATIENT ANTIDIABETIC REGIMEN: * Lantus 20 units Q HS * Novolog per sliding scale ASSESSMENT: 918 * Pt has received 12 units of insulin over the past 24hrs * 10 units of basal with Lantus * 2 units of bolus with NovoLog * BSGs 15-593-832-145-195-199 mg/dl * BSGs trending upwards today. Will increase Lantus slightly. * Pt remains NPO, on mechanical ventilation and on Hydrocortisone 50mg IV Q8hrs. 06/14 * This AM patient is off pressors, hydrocortisone dose reduced and pt is now extubated * Insulin infusion rates have dropped as BSGs fell into the low 100s * Pt will remain NPO today * Will transition off insulin drip today 06/13 * Critically ill, type 2 diabetic admitted for septic shock, currently intubated, receiving broad spectrum abx, ordered norepi for pressure support as well as stress dose hydrocortisone for possible relative adrenal insufficiency / myxedema. * Initial GLU in ER mid 200s however is now 475 * IV insulin drip initiated per ICU hyperglycemia protocol as ordered by admitting provider: goal range 110-180, severe/high stress protocol. K+ 4.5 on initial chemistry. This would be the standard of care for a patient with current stressors in ICU. PLAN FOR INPATIENT GLYCEMIC CONTROL: * Basal insulin * Lantus 15 units SQ Daily in AM. Will re-assess need for PM dosing * Bolus insulin * Novolog SQ Q 4 hours * Goal range: 110 - 140 mg/dL * Correction factor: 30 mg/dL/unit * Nutritional / Prandial insulin per carb ratio: 10 gm CHO / unit PLAN FOR DISCHARGE: * to be determined
[2021-06-15] MEDS: FLUCONAZOLE 200 MG/100 ML BAG IV SCH (12:00)
[2021-06-15] MEDS ORDERED: INSULIN GLARGINE SOLOSTAR 100 UNITS/ML 3 ML PEN SC ONE (12:30)
[2021-06-15] MEDS: AZITHROMYCIN 250 MG in DEXTROSE 5% 250 ML IV SCH (12:40)
[2021-06-15] MEDS ORDERED: CEFEPIME CONSULT ACTIVE PRN (12:53)
[2021-06-15] MEDS: DAPTOmycin 400 MG in SYRINGE 0 ML IV SCH (12:58)
[2021-06-15] MEDS: FAMOTIDINE 20 MG in SYRINGE 3 ML IV SCH (13:07)
--- NOTE | 2021-06-15 15:07 | Hospitalist Progress Note ---
Date of Service June 15, 2021 Assessment & Plan (1) Multifocal pneumonia: Plan: Anette is a 75-year-old female with a past medical history of anemia, coronary artery disease, hypertension, hypothyroidism, chronic incomplete quadriplegia, type 2 diabetes mellitus, UTI, osteomyelitis, and pressure ulcers who presented with acute hypoxic respiratory failure 2/2 multifocal pneumonia requiring ICU level of care. Sepsis and acute hypoxic respiratory failure 2/2 suspect mucous plugging & aspiration PNA Bronchoscopy performed by ICU/pulmonary. Multifocal mucous plugging and secretions appreciated Per ICU team, continue broad-spectrum antibiotics (azithromycin, cefepime. Dapto added for VRE UTI no pulm efficacy) MRSA nare positive Patient declined with trial of extubation, reintubated 06/14. Continue ventilation parameters per ICU, sedation/paralysis per ICU Hydrocortisone per ICU recommendations (2) Sepsis: Plan: On admission met SIRS and qSOFA criteria 2/2 multifocal pneumonia as managed above Lactate 1.7 on admission, white blood cell count 21, PCT 0.46 on admission Patient continues to remain critically ill requiring ICU level of care Continue prior support per ICU recommendations, norepinephrine currently paused (3) Hypoxia: Plan: As above (4) Osteomyelitis: Plan: Prior to admission on cefepime as outpatient following meropenem/vancomycin Antibiotics as above (5) Acute on chronic renal failure: Plan: ALIX, worsening Baseline 1.61.8 Uptrending 2/2 sepsis/pneumonia and prerenal Continue pressor support (pt off pressors and increased BP 06/15) and volume per ICU recommendations BMP daily (6) Quadriplegia: Plan: As per HPI - continue with PT/OT and splints (7) Hypothyroid: Plan: Continue home Synthroid, recently uptitrated (8) CAD (coronary artery disease): Plan: Stable - Continue: Plavix, BB, and Zetia (9) Chronic osteomyelitis: Plan: As above (10) S/P PICC central line placement: (11) Diabetes type 2, controlled: Plan: Pharmacy consult Patient on basal/bolus insulin prior to admission Continue basal bolus insulin per ICU recommendations (12) UTI (urinary tract infection): Plan: - UC with VRE - Daptomycin added Plan: CODE STATUS: Full code, case discussed by palliative care with patient's daughter Anna. Per Dr. Lambert's discussion patient's daughter is confident her mother would want any intervention required to prolong her life including reintubation and that "living "is the most important to her, and recognizes that her activities are limited at baseline due to her quadriplegia and enjoyment mostly comes from interacting with family. Admission and Anticipated Discharge Date Admission Date: June 13, 2021 Subjective Subjective limited by ETT Review of Systems Review of Systems: Unobtainable due to endotracheal tube Physical Exam Physical Exam: General: ETT in place, no acute distress HEENT: Atraumatic, normocephalic. Pulm: Diminished left greater than right, moderate air movement, no rales/rhonchi symmetrical chest rise. No increase work of breathing. No respiratory distress. Cardiac: RRR, -mrg. Radial pulses intact and symmetrical. Abdominal: Soft, nondistended Results & Data Results & Data ([facility]) Vital Signs (Past 12 Hours) Vital Signs Temp Pulse Pulse Resp BP Pulse Ox 06/15/21 10:55 54 L 14 99 06/15/21 09:28 14 06/15/21 08:55 36.9 C 61 170/87 H 97 06/15/21 08:00 54 L 06/15/21 07:55 37.0 C 58 L 159/79 H 97 06/15/21 07:08 64 64 16 98 06/15/21 06:55 37.0 C 59 L 169/84 H 97 06/15/21 05:25 37.1 C 57 L 143/70 H 97 06/15/21 05:20 59 L 17 95 06/15/21 04:25 37.0 C 76 144/85 H 97 06/15/21 03:25 37.0 C 60 147/77 H 96 PG Care Time/CCT Total # of Minutes Spent Total Time Spent with Patient: Total time spent is greater than 50% in coordination of care (as documented) at patient's floor/unit and/or counseling patient: Coding Level of Care Code None Diagnoses Multifocal pneumonia J18.9 Sepsis A41.9 Hypoxia R09.02 Osteomyelitis M86.9 Acute on chronic renal failure N17.9; N18.9 Quadriplegia G82.50 Hypothyroid E03.9 Hypothyroidism type: unspecified CAD (coronary artery disease) I25.10 Coronary Disease-Associated Artery/Lesion type: [place] artery [place] vs. transplanted heart: 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 artery [place] vs. transplanted heart: [place] heart Associated angina: without angina Qualified Code(s): I25.10 - Atherosclerotic heart disease of 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
[2021-06-15 15:29] LABS: BUN Creatinine Ratio 19.6 (10-20); Calcium 8.3 mg/dl (8.5-10.1); Creatinine Clr Calc Pharmacy 12.4 ml/min; Est GFR (African American) 13.7 ml/min; Est GFR (Non-African American) 11.8 ml/min; Potassium 4.9 mmol/L (3.5-5.1)
[2021-06-15] MEDS ORDERED: CEFEPIME 2,000 MG in SYRINGE 0 ML IV SCH (21:00)
[2021-06-16] MEDS: INSULIN ASPART 100 UNITS/ML 3 ML PEN SC SCH ×6 (01:16→20:52)
[2021-06-16] MEDS: TUBE FEEDING WATER FLUSH GT SCH ×3 (01:16→09:12)
[2021-06-16 05:15] LABS: Basophils # (auto) 0.02 K/uL (0-0.2); Basophils % (auto) 0.2 %; Eosinophils % (auto) 1.1 %; Hematocrit (blood only) 26.2 % (37-47); Hemoglobin 8.2 g/dL (12.0-16.0); Immature Granulocytes # (auto) 0.09 K/uL (0.00-0.02); Lymphocytes % (auto) 8.6 %; Mean Corpuscular Hemoglobin 33.3 pg (25-34); Mean Corpuscular Hgb Conc 31.3 g/dL (32-36); Mean Corpuscular Volume 106.5 fL (80-100); Mean Platelet Volume 10.8 fL (7.4-10.4); Monocytes # (auto) 0.61 K/uL (0.11-0.59); Monocytes % (auto) 6.6 %; Neutrophils # (auto) 7.66 K/uL (1.4-6.5); Neutrophils % (auto) 82.5 %; Platelet Count 455 K/uL (130-400); RDW Coefficient of Variation 14.4 % (11.5-14.5); RDW Standard Deviation 56.6 fL (36.4-46.3); Red Blood Count 2.46 M/uL (4.2-5.4); White Blood Count 9.28 K/uL (4.8-10.8)
[2021-06-16 05:25] LABS: iSTAT Allen Test Pass; iSTAT Art Bld Gas pCO2 Correct 33 mmHg (35-46); iSTAT Art Bld Gas pH Corrected 7.374 (7.35-7.45); iSTAT Arterial Blood Gas HCO3 19 meg/L (19-24); iSTAT Arterial Blood Gas pCO2 32 mmHg (35-46); iSTAT Arterial Blood Gas pH 7.38 (7.35-7.45); iSTAT Arterial Blood Gas pO2 80 mmHg (80-95); iSTAT Arterial Blood Gas pO2 C 82; iSTAT Carbon Dioxide 20 mmol/L (24-31); iSTAT FiO2 30 %; iSTAT Hematocrit 23 % (37-47); iSTAT Hemoglobin 7.8 g/dl (12.0-16.0); iSTAT Potassium 4.9 mmol/L (3.3-5.0); iSTAT Site L Radial; iSTAT Sodium 141 mmol/L (135-144)
[2021-06-16 05:31] LABS: BUN Creatinine Ratio 19.3 (10-20); Calcium 7.8 mg/dl (8.5-10.1); Creatinine Clr Calc Pharmacy 10.6 ml/min; Est GFR (African American) 11.3 ml/min; Est GFR (Non-African American) 9.7 ml/min; Magnesium 2.9 mg/dl (1.8-2.4); Phosphorus 4.7 mg/dl (2.5-4.9); Potassium 5.1 mmol/L (3.5-5.1)
[2021-06-16 05:58] LABS: INR 1.1 (0.9-1.1); Partial Thromboplastin Time 26.5 Seconds (21.0-31.0); Prothrombin Time 11.2 Seconds (9.0-12.0)
--- NOTE | 2021-06-16 07:03 | XRay Report ---
XR chest 1V portable CLINICAL HISTORY: f/u COMPARISON STUDY: Chest radiograph June 15, 2021. FINDINGS: Tip of endotracheal tube is 4.1 cm above the kati. Right-sided central venous catheter is in place. Tip of nasogastric tube is below the lower aspect of this image but at least within the ubaldo dy of the stomach. Cardiomegaly is unchanged. There is no pleural effusion. Left basilar opacity is n oted. Additional mild left upper lung airspace opacities have slightly improved. IMPRESSION: 1. Satisfactory positioning of lines and tubes. 2. Persistent left lung airspace opacities which favor an infectious process. ACT 112: Negative or not required by law. Electronically signed by: Maynor Gonzalez M.D. 06/16/2021 7:01 AM
[2021-06-16] MEDS: SODIUM CHLOR 7% 4 ML NEB NEB SCH ×2 (07:28→19:09)
[2021-06-16] MEDS ORDERED: SODIUM BICARB 8.4% INJ 50 MEQ/50 ML SYR IV STA (07:56)
[2021-06-16] MEDS ORDERED: PATIROMER CALCIUM SORBITEX 8.4 GM PACK PO SCH (08:00)
--- NOTE | 2021-06-16 08:21 | Critical Care Progress Note ---
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 Critical care indication: need for mechanical ventilation, need for pressor support Plan: Neurologic CAM ICU: Negative Sedation, analgesia: fentanyl Cardiac BP stable at this time, off vasopressors Continue with home metoprolol Continue home clopidogrel, ezetimibe Respiratory -- VDRF Likely secondary to mucous plugging with aspiration pneumonia Continue with ventilatory support Keep RASS -1 Daily sedation holidays and SBT's COVID-19 PCR negative Nasal MRSA positive Procalcitonin 0.46 Patient with history of tobacco use, though without known pulmonary disease Suspect ARF secondary to mucous plugging, sepsis, aspiration Patient underwent bronchoscopy (06/13) and repeat bronchoscopy on 06/14 with clearing of mucus --> blood culture growing yeast which is most likely a coloni zer Gastrointestinal No history of GERD, Pepcid Renal/electrolytes History of CKD, baseline Cr of 1.6-1.8 Creatinine gradually getting worse. 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 Chronically on fluconazole. --Prophylaxis VTE: Heparin GI: Pepcid Lines: Right arm PICC, positive [place] Diet: Tube feeds Plan: In/out: +2.2 L, urine output 190 mL ABG 7.34/36/64 Change hydrocortisone to daily Patient's urine is growing VRE --> Continue daptomycin For the aspiration pneumonia with nasal MRSA positive continue with vancomycin and pseudomonal osteomyelitis continue with Patient is on chronic fluconazole for underlying sacral decubitus osteomyelitis. Patiromer went to the patient today for hyperkalemia Patient creatinine is still elevated Bladder scan did not show any residual fluid in the urinary bladder. Repeat BMP later today Trial extubation today to BiPAP I spoke with patient's daughter who is also the POA. Told her regarding patient's current status as well as worsening creatinine and renal function. Patient's daughter wants to patient to be reintubated if there is a need after extubation. I spoke with the patient regarding dialysis and I explained her that if her creatinine does not improve she might need dialysis. She said no to dialysis. I did explain her again it might be a question of life and that she is still said no with her head movement. This information was also relayed to the patient's daughter. I have personally spent 40 minutes of critical care time in the direct management of this patient. This is a life/limb threatening event. This includes time spent evaluating patient, direct bedside care, chart review, placing orders, interpretation of diagnostic studies, discussion with consultants, patient, and family members, as well as other required patient management activities. This time is exclusive of all separately billable procedures, and teaching time and separate from and in addition to any other critical care service time. Please note the above document was generated using voice recognition software. It may contain grammatical, syntax or spelling errors. (2) Multifocal pneumonia: (3) Acute on chronic renal failure: (4) Chronic osteomyelitis: (5) Altered mental status: Admission and Anticipated Discharge Date Admission Date: June 13, 2021 Subjective Patient seen and examined at bedside. No acute distress, noted at night. Patient was on pressure support 8/5 at the time of examination getting tidal volume 350-400 Denies any chest pain, no headache. Denies any abdominal pain. Has been afebrile. Review of Systems Review of Systems: All systems reviewed & are unremarkable except as noted in Subjective Physical Exam Physical Exam: Constitutional: No acute distress HEENT: EOMI, PERRLA, positive ETT Respiratory system: Decreased air entry bilaterally, more decreased on the left side, no wheeze, no rhonchi, positive crackles bilateral lower lobes CVS: S1-S2 positive, no murmurs or gallops Abdomen: Soft, nontender, nondistended, positive bowel sounds x4 Extremities: +2 pulses bilaterally radialis/ dorsalis pedis, no cyanosis, +1 pitting edema bilateral lower extremity, positive sacral decub Neuro: Awake alert oriented, moving bilateral upper extremities following simple commands Psych: Normal mood and affect G/U: Positive [place] Skin: no rashes, warm and dry Lymphatic: no cervical or axillary lymphadenopathy Results & Data Results & Data ([facility]) Vital Signs (Past 12 Hours) Vital Signs Pulse Pulse Resp Pulse Ox 06/16/21 07:48 16 06/16/21 07:35 64 15 99 06/16/21 07:27 61 15 99 06/16/21 03:49 60 15 96 06/15/21 23:20 63 16 94 06/16/21 05:09 06/16/21 04:50 Coding Level of Care Code Critical Care 1st 30-74 mins Diagnoses Acute respiratory failure J96.01 Respiratory failure complication: hypoxia Multifocal pneumonia J18.9 Acute on chronic renal failure N17.9; N18.9 Acute renal failure type: unspecified Chronic kidney disease stage: unspecified stage Chronic osteomyelitis M86.60 Altered mental status R41.82 Time Spent (min) 40 (1) Acute respiratory failure Respiratory failure complication: hypoxia Qualified Code(s): J96.01 - Acute respiratory failure with hypoxia (2) Acute on chronic renal failure Acute renal failure type: unspecified Chronic kidney disease stage: unsp ecified stage Qualified Code(s): N17.9 - Acute kidney failure, unspecified; N18.9 - Chronic kidney disease, unspecified
[2021-06-16] MEDS: LEVOTHYROXINE SODIUM 100 MCG in SYRINGE 0 ML IV SCH (08:30)
[2021-06-16] MEDS: INSULIN GLARGINE SOLOSTAR 100 UNITS/ML 3 ML PEN SC SCH (08:31)
--- NOTE | 2021-06-16 08:32 | Pharmacy Report ---
Pharmacy Abx Dose Short Note - Date of Service June 16, 2021 - Assessment & Plan Assessment 75 year old F receiving IV Vancomycin, Cefepime, Azithromycin, Daptomycin, and Fluconazole (on chronically) for treatment of sepsis secondary to PNA vs SSTI vs osteomyelitis; also has VRE in urine; yeast growing in bronchial washing Day # 4 of antimicrobial therapy. * Renal function continues to decline with sCr incr' to 4.22 mg/dL (from 3.17 mg/dL) and CrCl decr' to 10.6 mL/min * Last Vancomycin dose was 1500mg IV x 1 on 06/13 @ 1157 * Urine culture resulted as Vancomycin-resistant Enterococcus faecium * Patient continues Vancomycin for MRSA pneumonia Plan Vancomycin * Random level of 24.2 mcg/mL drawn 06/16/21 @ 0450 remains supratherapeutic * Continue to *HOLD* Vancomycin given sustained supratherapeutic level in setting of worsened renal function * Goal trough level for sepsis : 15 to 20 mcg/mL * Random level ordered for: 06/17/21 with AM labs to reassess when next Vancomycin level is due Daptomycin * Continue Daptomycin 400mg (dosed 8mg/kg IBW) IV q48 for CrCl <30 mL/min; aggressive dosing for VRE Cefepime * Decr' to Cefepime 1000mg IV q24 for CrCl <11 mL/min (target dose is 2g IV q8) Pharmacy will continue to follow and will adjust dose/frequency as necessary. Thank you.
[2021-06-16] MEDS ORDERED: INSULIN GLARGINE SOLOSTAR 100 UNITS/ML 3 ML PEN SC SCH (09:00)
[2021-06-16] MEDS: HEPARIN SOD 5,000 UNIT/0.5 ML VIAL SQ SCH ×2 (09:15→20:53)
[2021-06-16] MEDS: COLLAGENASE OINT 30 GM TUBE TOP SCH (09:16)
[2021-06-16] MEDS: GABAPENTIN 100 MG CAP PO SCH ×3 (09:16→20:27)
[2021-06-16] MEDS: METOPROLOL TARTRATE 25 MG TAB PO SCH ×2 (09:16→20:27)
[2021-06-16] MEDS: HYDROCORTISONE SOD 50 MG in SYRINGE 0 ML IV SCH (09:16)
[2021-06-16] MEDS: EZETIMIBE 10 MG TABLET PO SCH (09:16)
--- NOTE | 2021-06-16 09:33 | Pharmacy Report ---
Pharmacy Glycemic Short Note 2 - Date of Service June 16, 2021 - Glycemic Short BSG Results (Last 24 hours): 06/15/21 06/15/21 06/15/21 12:02 14:48 16:17 Glucose 235 H POC Glucose 219 H 226 H 06/15/21 06/16/21 06/16/21 21:02 01:13 04:50 Glucose 201 H POC Glucose 173 H 196 H 06/16/21 08:13 Glucose POC Glucose 220 H OUTPATIENT ANTIDIABETIC REGIMEN: * Lantus 20 units Q HS * Novolog per sliding scale ASSESSMENT: 06/16 * Pt has received 39 units of insulin over the past 24hrs * 15 units of basal with Lantus * 24 units of bolus with NovoLog * BSGs all elevated above goal range. Added CHO coverage for continuous tube feedings yesterday. Will continue to tighten carb ratio to achieve goal range BSGs (110-140 mg/dl) * Hydrocortisone decreased to daily from Q12hrs dosing. Should have a small effect on improving BSGs since only minimal glucocorticoid effects of hydrocortisone as compared to dex or methylpred. 06/15 * Pt has received 12 units of insulin over the past 24hrs * 10 units of basal with Lantus * 2 units of bolus with NovoLog * BSGs 57-571-119-145-195-199 mg/dl * BSGs trending upwards today. Will increase Lantus slightly. * Pt remains NPO, on mechanical ventilation and on Hydrocortisone 50mg IV Q8hrs. 06/14 * This AM patient is off pressors, hydrocortisone dose reduced and pt is now extubated * Insulin infusion rates have dropped as BSGs fell into the low 100s * Pt will remain NPO today * Will transition off insulin drip today 06/13 * Critically ill, type 2 diabetic admitted for septic shock, currently intubated, receiving broad spectrum abx, ordered norepi for pressure support as well as stress dose hydrocortisone for possible relative adrenal insufficiency / myxedema. * Initial GLU in ER mid 200s however is now 475 * IV insulin drip initiated per ICU hyperglycemia protocol as ordered by admitting provider: goal range 110-180, severe/high stress protocol. K+ 4.5 on initial chemistry. This would be the standard of care for a patient with current stressors in ICU. PLAN FOR INPATIENT GLYCEMIC CONTROL: * Basal insulin * Lantus 20 units SQ Daily in AM. * Bolus insulin * Novolog SQ Q 4 hours * Goal range: 110 - 140 mg/dL * Correction factor: 25 mg/dL/unit * Nutritional / Prandial insulin per carb ratio: 8 gm CHO / unit PLAN FOR DISCHARGE: * to be determined
[2021-06-16] MEDS: CLOPIDOGREL BISULFATE 75 MG TAB PO SCH (10:18)
[2021-06-16] MEDS: FLUCONAZOLE 200 MG/100 ML BAG IV SCH (12:07)
--- NOTE | 2021-06-16 12:48 | Hospitalist Progress Note ---
Date of Service June 16, 2021 Assessment & Plan (1) Multifocal pneumonia: Plan: Anette is a 75-year-old female with a past medical history of anemia, coronary artery disease, hypertension, hypothyroidism, chronic incomplete quadriplegia, type 2 diabetes mellitus, UTI, osteomyelitis, and pressure ulcers who presented with acute hypoxic respiratory failure 2/2 multifocal pneumonia requiring ICU level of care. Sepsis and acute hypoxic respiratory failure 2/2 suspect mucous plugging & aspiration PNA Bronchoscopy performed by ICU/pulmonary. Multifocal mucous plugging and secretions appreciated Per ICU team, continue broad-spectrum antibiotics (azithromycin, cefepime. Dapto added for VRE UTI no pulm efficacy) MRSA nare positive Patient declined with trial of extubation, reintubated 06/14. Extubated to BiPAP 06/16, IPAP 13 EPAP 6 FIO2 .40 Steroids per ICU recommendations (2) Sepsis: Plan: On admission met SIRS and qSOFA criteria 2/2 multifocal pneumonia as managed above Lactate 1.7 on admission, white blood cell count 21, PCT 0.46 on admission Patient continues to remain critically ill requiring ICU level of care Continue prior support per ICU recommendations, norepinephrine currently paused (3) Hypoxia: Plan: As above (4) Osteomyelitis: Plan: Prior to admission on cefepime as outpatient following meropenem/vancomycin Antibiotics as above (5) Acute on chronic renal failure: Plan: ALIX, worsening Baseline 1.61.8 Uptrending 2/2 sepsis/pneumonia and prerenal Continue pressor support (pt off pressors and increased BP 06/15) and volume per ICU recommendations BMP daily (6) Quadriplegia: Plan: As per HPI - continue with PT/OT and splints (7) Hypothyroid: Plan: Continue home Synthroid, recently uptitrated (8) CAD (coronary artery disease): Plan: Stable - Continue: Plavix, BB, and Zetia (9) Chronic osteomyelitis: Plan: As above (10) S/P PICC central line placement: (11) Diabetes type 2, controlled: Plan: Pharmacy consult Patient on basal/bolus insulin prior to admission Continue basal bolus insulin per ICU recommendations (12) UTI (urinary tract infection): Plan: - UC with VRE - Daptomycin added (13) Hyperkalemia: Plan: -Potassium 5.2 06/15, tx with patiromer, ICU electolyte protocol Creatinine is uptrending to 4.22 from 3.6. 24hr urine output 0.12cc/kg/hg Dialysis discussed with patient and daughter as noted in critical care note, patient does not wish to proceed with dialysis at this time Plan: CODE STATUS: Full code, case discussed by palliative care with patient's daughter Anna. Per Dr. Lambert's discussion patient's daughter is confident her mother would want any intervention required to prolong her life including reintubation and that "living "is the most important to her, and recognizes that her activities are limited at baseline due to her quadriplegia and enjoyment mostly comes from interacting with family. Admission and Anticipated Discharge Date Admission Date: June 13, 2021 Subjective Subjective limited by Bipap. Pt awakens to voice, denies pain. Squeezes fingers on command, falls back to sleep easily. Review of Systems Review of Systems: Limited by BiPAP, grossly denies pain, fever, chills, difficulty breathing. Physical Exam Physical Exam: General: NIV in place, no acute distress, squeezes fingers on command. HEENT: Atraumatic, normocephalic. REY. Pulm: Diminished left greater than right, moderate air movement, no rales/rhonchi symmetrical chest rise. No increase work of breathing. No respiratory distress. Cardiac: RRR, -mrg. Radial pulses intact and symmetrical. Abdominal: Soft, nondistended Results & Data Results & Data ([facility]) Vital Signs (Past 12 Hours) Vital Signs Temp Pulse Pulse Resp BP Pulse Ox 06/16/21 11:25 37.2 C 69 171/87 H 100 06/16/21 10:38 72 12 93 06/16/21 10:25 37.1 C 76 163/87 H 92 06/16/21 09:25 37.2 C 71 166/83 H 95 06/16/21 09:11 70 12 97 06/16/21 08:25 37.3 C 63 157/74 H 97 06/16/21 08:00 64 06/16/21 07:48 16 06/16/21 07:35 64 15 99 06/16/21 07:27 61 15 99 06/16/21 07:25 37.3 C 62 151/77 H 98 06/16/21 03:49 60 15 96 PG Care Time/CCT Total # of Minutes Spent Total Time Spent with Patient: Total time spent is greater than 50% in coordination of care (as documented) at patient's floor/unit and/or counseling patient: Coding Level of Care Code 18409 Subseq Hosp Care Lvl 1 Diagnoses Multifocal pneumonia J18.9 Sepsis A41.9 Hypoxia R09.02 Osteomyelitis M86.9 Acute on chronic renal failure N17.9; N18.9 Quadriplegia G82.50 Hypothyroid E03.9 Hypothyroidism type: unspecified CAD (coronary artery disease) I25.10 Associated angina: without angina Coronary Disease-Associated Artery/Lesion type: [place] artery [place] vs. 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 transplanted heart: [place] heart Qualified Code(s): I25.10 - Atherosclerotic heart disease of [place] coronary artery without angina pectoris (2) Hypothyroid Hypothyroidism type: unspecified Qualified Code(s): E03.9 - Hypothyroidism, unspecified (3) Diabetes type 2, controlled Diabetes mellitus complication status: without complication Diabetes mellitus intermodal dispatcher insulin use: unspecified penitentiary insulin use status Qualified Code(s): E11.9 - Type 2 diabetes mellitus without complications
[2021-06-16] MEDS: AZITHROMYCIN 250 MG in DEXTROSE 5% 250 ML IV SCH (12:58)
[2021-06-16] MEDS: FAMOTIDINE 20 MG in SYRINGE 3 ML IV SCH (12:59)
[2021-06-16] MEDS ORDERED: FUROSEMIDE 40 MG in SYRINGE 0 ML IV ONE (16:45)
[2021-06-16 17:30] LABS: BUN Creatinine Ratio 20.1 (10-20); Calcium 7.9 mg/dl (8.5-10.1); Creatinine Clr Calc Pharmacy 9.8 ml/min; Est GFR (African American) 10.3 ml/min; Est GFR (Non-African American) 8.9 ml/min; Potassium 4.7 mmol/L (3.5-5.1)
[2021-06-16] MEDS: CEFEPIME 1,000 MG in SYRINGE 0 ML IV SCH (20:52)
[2021-06-16] MEDS: ALBUTEROL 0.083% NEBU SOLN 3 ML VIAL NEB PRN (22:31)
[2021-06-17] MEDS: INSULIN ASPART 100 UNITS/ML 3 ML PEN SC SCH ×6 (00:30→20:34)
--- NOTE | 2021-06-17 01:10 | Communication Note ---
Date of Service: June 17, 2021 0100: Patient was noted to be increasingly hypoxemic. Patient was requiring escalating FiO2 requirements. Her BiPAP settings were at 100% FiO2 which had worsened throughout the night. Patient has become less responsive at this time. Her oxygen saturations remained in the mid to upper 80s. Given conversations with the patient's daughter throughout the day, I did like to speak with her directly. Earlier conversations with the patient had suggested that she has no wishes to undergo tracheostomy tube placement or PEG tube placement. Kellena lly, she would not wish to undergo hemodialysis. 0107: I reached out to the patient's daughter, Anna. She states that she is aware that her mother has declined. She is actually arranging to start driving from [place] to the [facility] as she reports that she cannot fly. We did discuss a rapid decline and need for intubation versus transition of care. She reports that she did evaluate her mother's living well which does report that she had previously requested no intubation, no ventilation, no chest compressions, no tracheostomy tube, no PEG tube, or no hemodialysis. She does admit that this would be consistent with her mother's wishes. Unfortunately, the child is distraught as she is unable to be with her mother at this time secondary to geographical distance. Her only wishes that she can see her mother 1 last time. I explained that I am concerned that her mother is now progressing to renal failure and despite intubation and likely need for bronchoscopy, I cannot guarantee that despite improvement of her oxygenation, that the patient will be able to awaken and communicate secondary to possible worsening uremia. We had extensive conversation extending approximately 25 minutes. During this conversation, I did explain possible options of ongoing management which would be in line with patient's mother's wishes and living will. First, I offered that we continue with current management without progression to intubation which, would hopefully allow as much time as possible for her to arrive at bedside acknowledging that this may not be a reality. Secondly, we discussed progression to comfort measures only. We did offer zoom call for her to say goodbye. Thirdly, options for reintubation with mechanical ventilation to allow more time for her to arrive to say goodbye to her mother. Daughter was understandably emotional, but requests that we perform intubation as she understands her mother's wishes, but she feels as though her mother would be more disheartened if she were to pass away alone. She request that we reintubate patient. We did did delve into further discussion regarding CODE STATUS. During this conversation, the patient's daughter does agree that her mother would not wish to undergo chest compressions or defibrillation. CODE STATUS changed and addressed in the chart. She is comfortable with addition of vasopressors or other ACLS medications if needed. Patient was successfully intubated on first pass 10 by emergency department physician. Given the patient's degree of hypoxemia and need for close skilled provider to perform intubation, I did request emergency department physician performed procedure which she graciously performed. Initial chest x-ray demonstrated a central whiteout of the LEFT lung with concerns for significant mucous plugging versus atypical pulmonary edema. Patient saturating well immediately after intubation, however several minutes after, the patient became increasingly hypoxemic. Her oxygen saturations declined into the 60s. This, coupled with the patient's chest x-ray, warranted need for exploration of possible obstruction which was progressively resulting in likelihood of hypoxemic arrest. I did reach out to my attending physician and describe situation prior to performing any procedures. He does agree to be performing emergent therapeutic bedside bronchoscopy. Given the patient's rapid decline and need for expeditious intervention, I did perform a limited bedside bronchoscopy to assess airway. Large mucous plug was suctioned from the LEFT main bronchus. Afterwards, her oxygenation did improve into the mid 80s while she remained on 100% FiO2 and 10 of PEEP. Repeat chest x-ray demonstrates ongoing whiteout of the LEFT lung. Patient received inhaled Mucomyst followed by hour-long DuoNeb. While the patient had initially showed some great improvement after bronchoscopy and Mucomyst, her saturations began to decline. At this point, I reached out to my attending physician again as was concern for need for formal bronchoscopy and airway clearing. Thankfully, he was able to present at bedside and perform extensive bronchoscopy with removal of significant amounts of secretions. This ultimately resulted in improvement of patient's saturation and improvement ventilator settings. I have personally spent 85 minutes of critical care time in the direct management of this patient. This is a life/limb threatening event. This includes time spent evaluating patient, direct bedside care, chart review, placing orders, interpretation of diagnostic studies, discussion with consultants, patient, and family members, as well as other required patient management activities. This time is exclusive of all separately billable procedures, and teaching time and separate from and in addition to any other critical care service time. Coding Level of Care Code Critical Care 1st 30-74 mins Time Spent (min) 85
[2021-06-17] MEDS ORDERED: RAPID SEQUENCE INDUCTION BAG ONE (01:40)
[2021-06-17] MEDS ORDERED: STAT IV Infusion **Titration per Protocol STA (02:07)
[2021-06-17] MEDS ORDERED: NOREPINEPHRINE/D5W 8 MG/508 ML IV ONE (02:10)
[2021-06-17] MEDS ORDERED: NOREPINEPHRINE/D5W 8 MG/508 ML BAG IV SCH (02:15)
--- NOTE | 2021-06-17 02:17 | Procedure Note ---
Procedure Note Date of Service June 17, 2021 Note PROCEDURE NOTE - Endotracheal Intubation PROCEDURE NOTE: Informed consent was not obtained by the patient. Please see the ICU PA note regarding conversation with family and the decision to reintubate. Verify Correct Patient: yes Procedure: Endotracheal intubation Indication: respiratory failure The procedure was done emergently. Description of the Procedure: The patient was seen and properly identified. Aquilla scope at bedside, suction present, patient already on BiPAP at 100%. RT at bedside. The patient was pre-oxygenated and intubated after rapid sequence induction with meds: etomidate 20 mg. Intubation was performed using a Glidescope 3 blade and a 7.5 cuffed endotracheal tube. The tube was visualized going through the cords and secured with the 24 cm gunnar at the lips. Positive color change noted, condensation noted in the ET tube. The patient had good bilateral breath sounds in the axillae with good chest rise. Proper ET tube placement was also confirmed by end tidal CO2 detector. The patient tolerated the procedure well. Chest x-ray ordered by ICU PA. Coding
--- NOTE | 2021-06-17 02:32 | Procedure Note ---
Procedure Note Date of Service June 17, 2021 Note Procedure: Emergency Flexible Bronchoscopy Attending/Claim Representative: Dr. Perera, Delano Zacarias PA-C Anesthetic/Sedation: Fentanyl Indication: Acute desaturation with total LEFT lung white out requiring evaluation for tube placement vs. mucous plugging vs. lung collapse. Emergent consent implied in the setting of rapid patient decompensation with oxygen saturations in the 50s with concerns for imminent hypoxic respiratory arrest. Please see Critical Care Supplemental Note for further information regarding patient decline, decision making, etc. A time-out was completed verifying correct patient, procedure, site, positioning, and implant(s) or special equipment if applicable. Findings: Trachea ET Tube in place appropriately above the kati. LEFT Mainstem Bronchus: * Large tenacious mucus plugging appreciated to the distal LEFT main bronchus. Large amounts of mucoid impaction was suctioned out. Total of 20 amounts of saline was administered and suctioned with removal of central mucous plugging. * Distally, other areas of mucus with frothy sputum appreciated. Examination of tissues demonstrates hyperemic tissues without active bleeding. * The distal airways were not assessed otherwise. RIGHT Mainstem Bronchus: * No proximal impactions appreciated. Specimens: None Complications: NONE Impression: Large LEFT-sided main bronchus mucus impaction with subsequent removal. Coding CPT Codes Pulmonary/Thoracic - Pulmonary and Thoracic: 05871 Bronchoscopy, reclear airway ([id number]) [facility] [place] Procedure Codes (Charges) Pulmonary/Thoracic Procedure 3: Pulmonary and Thoracic: 15642 Bronchoscopy, reclear airway
[2021-06-17] MEDS ORDERED: ALBUT/IPRATROP 3MG/0.5MG NEB 3 ML VIAL NEB ONE (02:36)
[2021-06-17] MEDS ORDERED: ACETYLCYSTEINE 20% INHAL SOLN 30ML INH ONE ×2 (02:36→02:49)
[2021-06-17] MEDS ORDERED: ALBUT/IPRATROP 3MG/0.5MG NEB 3 ML VIAL ONE (02:38)
[2021-06-17] MEDS: fentaNYL DRIP 1,250 MCG/250 ML BAG IV SCH (03:20)
[2021-06-17 03:21] LABS: iSTAT Allen Test Pass; iSTAT Art Bld Gas pCO2 Correct 45 mmHg (35-46); iSTAT Art Bld Gas pH Corrected 7.283 (7.35-7.45); iSTAT Arterial Blood Gas HCO3 21 meg/L (19-24); iSTAT Arterial Blood Gas pCO2 45 mmHg (35-46); iSTAT Arterial Blood Gas pH 7.28 (7.35-7.45); iSTAT Arterial Blood Gas pO2 42 mmHg (80-95); iSTAT Arterial Blood Gas pO2 C 41; iSTAT Carbon Dioxide 23 mmol/L (24-31); iSTAT FiO2 100 %; iSTAT Hematocrit 26 % (37-47); iSTAT Hemoglobin 8.8 g/dl (12.0-16.0); iSTAT Potassium 4.2 mmol/L (3.3-5.0); iSTAT Site R Brachial; iSTAT Sodium 142 mmol/L (135-144)
--- NOTE | 2021-06-17 03:48 | Procedure Note ---
Procedure Note: Bronchoscopy Procedure PREOPERATIVE DIAGNOSIS: Left lung collapse POSTOPERATIVE DIAGNOSIS: Mucous plugging of the left lung PROCEDURE PERFORMED: Flexible fiberoptic bronchoscopy with bronchial washings COMPLICATIONS: None. INDICATION: Hypoxia PROCEDURE: Emergent consent was applied. Patient was already intubated. 50 MCG of fentanyl bolus was given The trachea appeared normal.The bronchoscope was then advanced through the kati, which was sharp. The scope was then advanced into the right main stem and each segment, subsegement in the right upper lobe, right middle lobe and right lower lobe were visualized. There was minimal amount of thick white secretions which were suctioned out. There were no other findings including evidence of mass, anatomic distortions, or hemorrhage. The bronchoscope was subsequently withdrawn and advanced into the left mainstem. Large mucous plug obstructing both left upper and left lower lobe was seen. Gradually the mucous plugs were suctioned out. After suctioning out the mucous plug again, each segment and subsegment was well visualized. No specific masses or other lesions were identified throughout the tracheobronchial tree on the left. The bronchoscope was then withdrawn to the mainstem. The area was suctioned clear. The bronchoscope was then withdrawn. The patient tolerated the procedure well without evidence of desaturation or complications. Recommendations: Continue with vent support Go down on FiO2 gradually Continue with Mucomyst as well as flutter valve
[2021-06-17] MEDS ORDERED: SODIUM CHLOR 7% 4 ML NEB NEB ONE (04:23)
[2021-06-17 06:01] LABS: BUN Creatinine Ratio 18.5 (10-20); Calcium 8.1 mg/dl (8.5-10.1); Creatinine Clr Calc Pharmacy 8.7 ml/min; Est GFR (African American) 8.9 ml/min; Est GFR (Non-African American) 7.7 ml/min; Magnesium 2.8 mg/dl (1.8-2.4); Phosphorus 5.3 mg/dl (2.5-4.9); Potassium 3.8 mmol/L (3.5-5.1)
[2021-06-17 06:04] LABS: Hematocrit (blood only) 28.3 % (37-47); Hemoglobin 9.1 g/dL (12.0-16.0); Mean Corpuscular Hemoglobin 33.2 pg (25-34); Mean Corpuscular Hgb Conc 32.2 g/dL (32-36); Mean Corpuscular Volume 103.3 fL (80-100); Mean Platelet Volume 10.5 fL (7.4-10.4); Platelet Count 790 K/uL (130-400); RDW Coefficient of Variation 14.7 % (11.5-14.5); RDW Standard Deviation 54.6 fL (36.4-46.3); Red Blood Count 2.74 M/uL (4.2-5.4); White Blood Count 22.12 K/uL (4.8-10.8)
[2021-06-17 06:13] LABS: Basophils # (auto) 0.04 K/uL (0-0.2); Basophils % (auto) 0.2 %; Eosinophils # (auto) 0.18 K/uL (0-0.5); Eosinophils % (auto) 0.8 %; Immature Granulocytes # (auto) 0.33 K/uL (0.00-0.02); Immature Granulocytes % (auto) 1.5 %; Lymphocytes # (auto) 1.03 K/uL (1.2-3.4); Lymphocytes % (auto) 4.7 %; Monocytes # (auto) 1.96 K/uL (0.11-0.59); Monocytes % (auto) 8.9 %; Neutrophils # (auto) 18.58 K/uL (1.4-6.5); Neutrophils % (auto) 83.9 %; Tear Drop Cells 1+
[2021-06-17] MEDS ORDERED: SODIUM CHLOR 7% 4 ML NEB NEB SCH (07:00)
--- NOTE | 2021-06-17 07:13 | XRay Report ---
XR chest 1V portable HISTORY: 75 years-old Female repeat respiratory failure COMPARISON: Chest radiograph 06/17/2021, chest CT 06/13/2021 TECHNIQUE: AP view of the chest FINDINGS: Endotracheal tube overlies the midline, 3.6 cm superior to the kati. A right-sided PICC is noted wi th tip in the expected location of the upper SVC. No pneumothorax. Trace right pleural effusion with interstitial opacities throughout the right lung. Complete opacification of the left hemithorax redem onstrated with associated volume loss. Cervical spinal fusion hardware. Surgical clips of the left up per neck. Degenerative changes of the shoulders and spine. IMPRESSION: 1. Endotracheal and right PICC placement as above. 2. No pneumothorax. 3. Small right pleural effusion with unchanged interstitial coarsening of the right lung. 4. Complete opacification of the left hemithorax redemonstrated with associated volume loss. ACT 112: Negative or not required by law. The above report was generated using voice recognition software. It may contain grammatical, syntax o r spelling errors. Electronically signed by: Aurelio Fernández M.D. 06/17/2021 7:12 AM
--- NOTE | 2021-06-17 07:19 | XRay Report ---
XR chest 1V portable HISTORY: 75 years-old Female s/p intubation acute respiratory failure COMPARISON: Chest radiograph 03/16/2021 at 6:27 AM TECHNIQUE: Portable AP view of the chest FINDINGS: Endotracheal tube overlies the midline, 3.0 cm superior to the kati. A right-sided PICC is noted wi th tip in the expected location of the upper SVC. No pneumothorax. Trace right pleural effusion with interstitial opacities throughout the right lung. Interval development of complete opacification of t he left hemithorax with associated volume loss. Cervical spinal fusion hardware. Surgical clips of th e left upper neck. Degenerative changes of the shoulders and spine. IMPRESSION: 1. Endotracheal and right PICC placement as above. 2. No pneumothorax. 3. Small right pleural effusion with unchanged interstitial coarsening of the right lung. 4. Interval development of complete opacification of the left hemithorax with associated volume loss, possibly secondary to mucous plugging with atelectasis. ACT 112: Negative or not required by law. The above report was generated using voice recognition software. It may contain grammatical, syntax o r spelling errors. Electronically signed by: Aurelio Fernández M.D. 06/17/2021 7:18 AM
--- NOTE | 2021-06-17 07:22 | XRay Report ---
XR chest 1V portable HISTORY: 75 years-old Female s/p formal bronch status post recent bronchoscopy COMPARISON: Chest radiograph 06/17/2020 09/29/2012 exam TECHNIQUE: Portable AP view of the chest FINDINGS: Endotracheal tube overlies the midline, 4.5 cm superior to the kati. A right-sided PICC is present with distal tip in the expected location of the upper SVC. No pneumothorax. Right greater than left i nterstitial opacities with patchy consolidative densities about the left lung. There is improved aera tion of the left lung from comparison. Small left and trace right pleural effusions. Bones appear torin ssly intact. Surgical clips of the abdominal right upper quadrant. IMPRESSION: 1. Lines and tubes as above. 2. Improved aeration of the left lung status post bronchoscopy with left greater than right interstit ial densities and left lung airspace consolidation. 3. No pneumothorax. 4. Trace right and small left pleural effusions. ACT 112: Negative or not required by law. The above report was generated using voice recognition software. It may contain grammatical, syntax o r spelling errors. Electronically signed by: Aurelio Fernández M.D. 06/17/2021 7:20 AM
[2021-06-17] MEDS ORDERED: ETOMIDATE 2 MG/ML 20 ML VIAL IV ONE (07:33)
[2021-06-17] MEDS ORDERED: fentaNYL citrate 100 MCG/2 ML VIAL IV ONE (07:33)
[2021-06-17] MEDS: SODIUM CHLOR 7% 4 ML NEB NEB SCH (07:46)
[2021-06-17] MEDS: HEPARIN SOD 5,000 UNIT/0.5 ML VIAL SQ SCH ×2 (08:15→20:31)
[2021-06-17] MEDS: METOPROLOL TARTRATE 25 MG TAB PO SCH (08:16)
[2021-06-17] MEDS: COLLAGENASE OINT 30 GM TUBE TOP SCH (08:17)
[2021-06-17] MEDS: GABAPENTIN 100 MG CAP PO SCH (08:17)
[2021-06-17] MEDS: EZETIMIBE 10 MG TABLET PO SCH (08:17)
[2021-06-17] MEDS: CLOPIDOGREL BISULFATE 75 MG TAB PO SCH (08:17)
[2021-06-17] MEDS: LEVOTHYROXINE SODIUM 100 MCG in SYRINGE 0 ML IV SCH (08:23)
[2021-06-17] MEDS: INSULIN GLARGINE SOLOSTAR 100 UNITS/ML 3 ML PEN SC SCH (08:23)
[2021-06-17] MEDS: HYDROCORTISONE SOD 50 MG in SYRINGE 0 ML IV SCH (08:27)
[2021-06-17] MEDS ORDERED: PATIROMER CALCIUM SORBITEX 8.4 GM PACK PO SCH (09:00)
--- NOTE | 2021-06-17 09:16 | Critical Care Progress Note ---
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 Critical care indication: need for mechanical ventilation Plan: Neurologic CAM ICU: Negative Sedation, analgesia: fentanyl Cardiac BP stable at this time, off vasopressors Continue with home metoprolol Continue home clopidogrel, ezetimibe Respiratory -- VDRF Likely secondary to mucous plugging with aspiration pneumonia Continue with ventilatory support Keep RASS -1 Daily sedation holidays and SBT's COVID-19 PCR negative Nasal MRSA positive Procalcitonin 0.46 Patient with history of tobacco use, though without known pulmonary disease Suspect ARF secondary to mucous plugging, sepsis, aspiration Patient underwent bronchoscopy (06/13) and repeat bronchoscopy on 06/14 and 06/17 with clearing of mucus --> blood culture growing yeast which is most likely a colonizer -Patient failed spontaneous breathing trial secondary to apnea Gastrointestinal No history of GERD, Pepcid Renal/electrolytes History of CKD, baseline Cr of 1.6-1.8 Creatinine gradually getting worse. Replete electrolytes as needed Genitourinary VRE in the urine Strict I/O's Endocrine ICU hyperglycemia protocol Continue home levothyroxine Hematologic Monitor H&H, transfuse if hemoglobin less than 7 Blood type: B positive Infectious disease Blood cultures negative to date, urine culture growing VRE --> on daptomycin History notable for recent MRSA and Pseudomonas osteomyelitis of the right foot --> [facility] Integumentary Large sacral decubitus ulcers noted. Chronically on fluconazole. --Prophylaxis VTE: Heparin GI: Pepcid Lines: Right arm PICC, positive [place] Diet: Tube feeds Patient's daughter wants to patient to be reintubated if there is a need after extubation. -Daughter coming from [place] to see patient Palliative care already seeing the patient -Patient does not want to undergo dialysis (2) Multifocal pneumonia: (3) Acute on chronic renal failure: (4) Chronic osteomyelitis: (5) Altered mental status: Admission and Anticipated Discharge Date Admission Date: June 13, 2021 Supervising Physician Co-Signing Physician Notes I have personally spent 40 minutes of critical care time in the direct management of this patient. This is a life/limb threatening event. This includes time spent evaluating patient, direct bedside care, chart review, placing orders, interpretation of diagnostic studies, discussion with consultants, patient, and family members, as well as other required patient management activities. This time is exclusive of all separately billable procedures, and teaching time and separate from and in addition to any other critical care service time. Subjective Overnight patient was intubated and underwent bronchoscopy. Currently she is awake following complex commands and intubated. I have started a spontaneous breathing trial this morning Review of Systems Review of Systems: Unobtainable due to endotracheal tube Physical Exam Physical Exam: General: Alert. nontoxic. Skin: Warm, dry, Head: Atraumatic Ears, nose, mouth and throat: airway obscured by endotracheal tube Cardiovascular: Normal peripheral perfusion Respiratory: no respiratory distress, ventilator settings reviewed Gastrointestinal: Non distended Musculoskeletal: No deformity Results & Data Results & Data ([facility]) Vital Signs (Past 12 Hours) Vital Signs Temp Pulse Pulse Resp BP Pulse Ox 06/17/21 08:55 36.6 C 79 181/154 H 100 06/17/21 08:10 36.5 C 72 146/76 H 100 06/17/21 07:14 74 24 100 06/17/21 07:10 36.3 C L 76 141/80 H 100 06/17/21 04:25 36.2 C L 81 76/53 L 99 06/17/21 04:10 36.2 C L 84 73/50 L 99 06/17/21 03:55 36.3 C L 90 80/49 L 98 06/17/21 03:40 36.3 C L 90 24 91/58 L 98 06/17/21 03:25 36.3 C L 95 H 118/62 86 L 06/17/21 03:10 36.4 C L 82 98/58 L 06/17/21 02:55 36.5 C 82 110/61 66 L 06/17/21 02:32 36.6 C 86 123/65 80 L 06/17/21 02:25 36.6 C 84 123/65 66 L 06/17/21 02:05 36.7 C 83 115/62 72 L 06/17/21 01:55 36.7 C 100 H 191/85 H 88 L 06/17/21 01:25 36.7 C 86 196/83 H 88 L 06/17/21 00:55 36.8 C 88 183/84 H 87 L 06/17/21 00:25 36.8 C 87 196/93 H 90 06/16/21 23:55 36.9 C 90 197/95 H 92 06/16/21 23:46 68 16 90 06/16/21 23:44 68 16 90 06/16/21 23:25 36.9 C 93 H 204/106 H 91 06/16/21 22:55 36.9 C 85 191/98 H 91 06/16/21 22:25 36.9 C 84 172/96 H 86 L 06/16/21 21:25 36.8 C 73 170/86 H 89 L Laboratory Results 06/17/21 06/17/21 06/17/21 Range/Units 08:21 05:03 05:03 WBC 22.12 H D (4.8-10.8) K/uL RBC 2.74 L (4.2-5.4) M/uL Hgb 9.1 L (12.0-16.0) g/dL POC Hgb (12.0-16.0) g/dl Hct 28.3 L (37-47) % POC Hct (37-47) % MCV 103.3 H (80-100) fL MCH 33.2 (25-34) pg MCHC 32.2 (32-36) g/dL RDW Std Deviation 54.6 H (36.4-46.3) fL RDW Coeff of Alicia 14.7 H (11.5-14.5) % Plt Count 790 H D (130-400) K/uL MPV 10.5 H (7.4-10.4) fL Immature Gran % (Auto) 1.5 % Neut % (Auto) 83.9 % Lymph % (Auto) 4.7 % Wallace % (Auto) 8.9 % Eos % (Auto) 0.8 % Baso % (Auto) 0.2 % Neut # (Auto) 18.58 H (1.4-6.5) K/uL Lymph # (Auto) 1.03 L (1.2-3.4) K/uL Wallace # (Auto) 1.96 H (0.11-0.59) K/uL Eos # (Auto) 0.18 (0-0.5) K/uL Baso # (Auto) 0.04 (0-0.2) K/uL Immature Gran # (Auto) 0.33 H (0.00-0.02) K/uL Tear Drop Cells 1+ Sample Site POC pH (7.35-7.45) POC pCO2 (35-46) mmHg POC pO2 (80-95) mmHg POC HCO3 (19-24) nael/L POC Total CO2 (24-31) mmol/L POC Base Excess (-9-1.8) nael/L ABG pH (Temp Correct) (7.35-7.45) ABG pCO2 (Temp Corrct (35-46) mmHg POC ABG pO2 at Pt Temp POC ABG O2 Sat (90-95) % Ulices Test O2 Delivery Device POC O2 Rate POC FiO2 % Tidal Volume PEEP POC Sodium (135-144) mmol/L Sodium (136-145) mmol/L POC Potassium (3.3-5.0) mmol/L Potassium (3.5-5.1) mmol/L Chloride (98-107) mmol/L Carbon Dioxide (21-32) mmol/L Anion Gap (3-11) BUN (7-18) mg/dl Creatinine (0.6-1.2) mg/dl Est Cr Clr Drug Dosing ml/min Est GFR ( Amer) ml/min Est GFR (Non-Af Amer) ml/min BUN/Creatinine Ratio (10-20) Glucose (70-99) mg/dl POC Glucose 251 H (70-99) mg/dl Calcium (8.5-10.1) mg/dl Phosphorus (2.5-4.9) mg/dl Magnesium (1.8-2.4) mg/dl Random Vancomycin 22.4 mcg/ml 06/17/21 06/17/21 06/17/21 Range/Units 05:03 03:03 00:26 WBC (4.8-10.8) K/uL RBC (4.2-5.4) M/uL Hgb (12.0-16.0) g/dL POC Hgb 8.8 L (12.0-16.0) g/dl Hct (37-47) % POC Hct 26 L (37-47) % MCV (80-100) fL MCH (25-34) pg MCHC (32-36) g/dL RDW Std Deviation (36.4-46.3) fL RDW Coeff of Alicia (11.5-14.5) % Plt Count (130-400) K/uL MPV (7.4-10.4) fL Immature Gran % (Auto) % Neut % (Auto) % Lymph % (Auto) % Wallace % (Auto) % Eos % (Auto) % Baso % (Auto) % Neut # (Auto) (1.4-6.5) K/uL Lymph # (Auto) (1.2-3.4) K/uL Wallace # (Auto) (0.11-0.59) K/uL Eos # (Auto) (0-0.5) K/uL Baso # (Auto) (0-0.2) K/uL Immature Gran # (Auto) (0.00-0.02) K/uL Tear Drop Cells Sample Site R Brachial POC pH 7.28 L (7.35-7.45) POC pCO2 45 (35-46) mmHg POC pO2 42 L (80-95) mmHg POC HCO3 21 (19-24) nael/L POC Total CO2 23 L (24-31) mmol/L POC Base Excess -6.0 (-9-1.8) nael/L ABG pH (Temp Correct) 7.283 L (7.35-7.45) ABG pCO2 (Temp Corrct 45 (35-46) mmHg POC ABG pO2 at Pt Temp 41 POC ABG O2 Sat 71.0 L (90-95) % Ulices Test Pass O2 Delivery Device Ventilator POC O2 Rate 24 POC FiO2 100 % Tidal Volume 370 PEEP 10 POC Sodium 142 (135-144) mmol/L Sodium 141 (136-145) mmol/L POC Potassium 4.2 (3.3-5.0) mmol/L Potassium 3.8 D (3.5-5.1) mmol/L Chloride 109 H (98-107) mmol/L Carbon Dioxide 18 L (21-32) mmol/L Anion Gap 14.0 H (3-11) BUN 95 H (7-18) mg/dl Creatinine 5.14 H* D (0.6-1.2) mg/dl Est Cr Clr Drug Dosing 8.7 ml/min Est GFR ( Amer) 8.9 ml/min Est GFR (Non-Af Amer) 7.7 ml/min BUN/Creatinine Ratio 18.5 (10-20) Glucose 230 H (70-99) mg/dl POC Glucose 168 H (70-99) mg/dl Calcium 8.1 L (8.5-10.1) mg/dl Phosphorus 5.3 H (2.5-4.9) mg/dl Magnesium 2.8 H (1.8-2.4) mg/dl Random Vancomycin mcg/ml 06/16/21 06/16/21 06/16/21 Range/Units 20:38 16:50 15:57 WBC (4.8-10.8) K/uL RBC (4.2-5.4) M/uL Hgb (12.0-16.0) g/dL POC Hgb (12.0-16.0) g/dl Hct (37-47) % POC Hct (37-47) % MCV (80-100) fL MCH (25-34) pg MCHC (32-36) g/dL RDW Std Deviation (36.4-46.3) fL RDW Coeff of Alicia (11.5-14.5) % Plt Count (130-400) K/uL MPV (7.4-10.4) fL Immature Gran % (Auto) % Neut % (Auto) % Lymph % (Auto) % Wallace % (Auto) % Eos % (Auto) % Baso % (Auto) % Neut # (Auto) (1.4-6.5) K/uL Lymph # (Auto) (1.2-3.4) K/uL Wallace # (Auto) (0.11-0.59) K/uL Eos # (Auto) (0-0.5) K/uL Baso # (Auto) (0-0.2) K/uL Immature Gran # (Auto) (0.00-0.02) K/uL Tear Drop Cells Sample Site POC pH (7.35-7.45) POC pCO2 (35-46) mmHg POC pO2 (80-95) mmHg POC HCO3 (19-24) nael/L POC Total CO2 (24-31) mmol/L POC Base Excess (-9-1.8) nael/L ABG pH (Temp Correct) (7.35-7.45) ABG pCO2 (Temp Corrct (35-46) mmHg POC ABG pO2 at Pt Temp POC ABG O2 Sat (90-95) % Ulices Test O2 Delivery Device POC O2 Rate POC FiO2 % Tidal Volume PEEP POC Sodium (135-144) mmol/L Sodium 142 (136-145) mmol/L POC Potassium (3.3-5.0) mmol/L Potassium 4.7 (3.5-5.1) mmol/L Chloride 109 H (98-107) mmol/L Carbon Dioxide 22 (21-32) mmol/L Anion Gap 11.0 (3-11) BUN 91 H (7-18) mg/dl Creatinine 4.54 H* D (0.6-1.2) mg/dl Est Cr Clr Drug Dosing 9.8 ml/min Est GFR ( Amer) 10.3 ml/min Est GFR (Non-Af Amer) 8.9 ml/min BUN/Creatinine Ratio 20.1 H (10-20) Glucose 138 H (70-99) mg/dl POC Glucose 124 H 148 H (70-99) mg/dl Calcium 7.9 L (8.5-10.1) mg/dl Phosphorus (2.5-4.9) mg/dl Magnesium (1.8-2.4) mg/dl Random Vancomycin mcg/ml 06/16/21 Range/Units 12:10 WBC (4.8-10.8) K/uL RBC (4.2-5.4) M/uL Hgb (12.0-16.0) g/dL POC Hgb (12.0-16.0) g/dl Hct (37-47) % POC Hct (37-47) % MCV (80-100) fL MCH (25-34) pg MCHC (32-36) g/dL RDW Std Deviation (36.4-46.3) fL RDW Coeff of Alicia (11.5-14.5) % Plt Count (130-400) K/uL MPV (7.4-10.4) fL Immature Gran % (Auto) % Neut % (Auto) % Lymph % (Auto) % Wallace % (Auto) % Eos % (Auto) % Baso % (Auto) % Neut # (Auto) (1.4-6.5) K/uL Lymph # (Auto) (1.2-3.4) K/uL Wallace # (Auto) (0.11-0.59) K/uL Eos # (Auto) (0-0.5) K/uL Baso # (Auto) (0-0.2) K/uL Immature Gran # (Auto) (0.00-0.02) K/uL Tear Drop Cells Sample Site POC pH (7.35-7.45) POC pCO2 (35-46) mmHg POC pO2 (80-95) mmHg POC HCO3 (19-24) nael/L POC Total CO2 (24-31) mmol/L POC Base Excess (-9-1.8) nael/L ABG pH (Temp Correct) (7.35-7.45) ABG pCO2 (Temp Corrct (35-46) mmHg POC ABG pO2 at Pt Temp POC ABG O2 Sat (90-95) % Ulices Test O2 Delivery Device POC O2 Rate POC FiO2 % Tidal Volume PEEP POC Sodium (135-144) mmol/L Sodium (136-145) mmol/L POC Potassium (3.3-5.0) mmol/L Potassium (3.5-5.1) mmol/L Chloride (98-107) mmol/L Carbon Dioxide (21-32) mmol/L Anion Gap (3-11) BUN (7-18) mg/dl Creatinine (0.6-1.2) mg/dl Est Cr Clr Drug Dosing ml/min Est GFR ( Amer) ml/min Est GFR (Non-Af Amer) ml/min BUN/Creatinine Ratio (10-20) Glucose (70-99) mg/dl POC Glucose 137 H (70-99) mg/dl Calcium (8.5-10.1) mg/dl Phosphorus (2.5-4.9) mg/dl Magnesium (1.8-2.4) mg/dl Random Vancomycin mcg/ml Coding Level of Care Code Critical Care 1st 30-74 mins Diagnoses Acute respiratory failure J96.01 Respiratory failure complication: hypoxia Multifocal pneumonia J18.9 Acute on chronic renal failure N17.9; N18.9 Acute renal failure type: unspecified Chronic kidney disease stage: unspecified stage Chronic osteomyelitis M86.60 Altered mental status R41.82 (1) Acute respiratory failure Respiratory failure complication: hypoxia Qualified Code(s): J96.01 - Acute respiratory failure with hypoxia (2) Acute on chronic renal failure Acute renal failure type: unspecified Chronic kidney disease stage: unspecified stage Qualified Code(s): N17.9 - Acute kidney failure, unspecified; N18.9 - Chronic kidney disease, unspecified
--- NOTE | 2021-06-17 11:20 | Pharmacy Report ---
Pharmacy Glycemic Short Note 2 - Date of Service June 17, 2021 - Glycemic Short BSG Results (Last 24 hours): 06/16/21 06/16/21 06/16/21 12:10 15:57 16:50 Glucose 138 H POC Glucose 137 H 148 H 06/16/21 06/17/21 06/17/21 20:38 00:26 05:03 Glucose 230 H POC Glucose 124 H 168 H 06/17/21 08:21 Glucose POC Glucose 251 H OUTPATIENT ANTIDIABETIC REGIMEN: * Lantus 20 units Q HS * Novolog per sliding scale ASSESSMENT: 06/17 * Patient reintubated overnight * Pressors (norepi) infusing overnight as well, but currently titrated off * Tube feeds have been stopped as pt no longer has enteral access * Family traveling to see patient for possible transition to [facility] / extubation tomorrow * Hyperglycemia worsening in light of new stressors. Will escalate both basal and correctional insulin doses today. 06/16 * Pt has received 39 units of insulin over the past 24hrs * 15 units of basal with Lantus * 24 units of bolus with NovoLog * BSGs all elevated above goal range. Added CHO coverage for continuous tube feedings yesterday. Will continue to tighten carb ratio to achieve goal range BSGs (110-140 mg/dl) * Hydrocortisone decreased to daily from Q12hrs dosing. Should have a small effect on improving BSGs since only minimal glucocorticoid effects of hydrocortisone as compared to dex or methylpred. 06/15 * Pt has received 12 units of insulin over the past 24hrs * 10 units of basal with Lantus * 2 units of bolus with NovoLog * BSGs 21-503-334-145-195-199 mg/dl * BSGs trending upwards today. Will increase Lantus slightly. * Pt remains NPO, reintubated and on mechanical ventilation and remains on Hydrocortisone 50mg IV Q8hrs. 06/14 * This AM patient is off pressors, hydrocortisone dose reduced and pt is now extubated * Insulin infusion rates have dropped as BSGs fell into the low 100s * Pt will remain NPO today * Will transition off insulin drip today 06/13 * Critically ill, type 2 diabetic admitted for septic shock, currently intubated, receiving broad spectrum abx, ordered norepi for pressure support as well as stress dose hydrocortisone for possible relative adrenal insufficiency / myxedema. * Initial GLU in ER mid 200s however is now 475 * IV insulin drip initiated per ICU hyperglycemia protocol as ordered by admitting provider: goal range 110-180, severe/high stress protocol. K+ 4.5 on initial chemistry. This would be the standard of care for a patient with current stressors in ICU. PLAN FOR INPATIENT GLYCEMIC CONTROL: * Basal insulin * Lantus 20 units SQ Daily in AM. Repeat Lantus at 1600 today, dosing per s yessi: 0 units if BSG less than 140, 10 units if BSG 140-180, 15 units if BSG above 180 * Bolus insulin * Novolog SQ Q 4 hours * Goal range: 110 - 140 mg/dL * Correction factor: 18 mg/dL/unit * Nutritional / Prandial insulin per carb ratio: 7 gm CHO / unit PLAN FOR DISCHARGE: * to be determined
--- NOTE | 2021-06-17 11:33 | Pharmacy Report ---
Pharmacy Abx Dose Short Note - Date of Service June 17, 2021 - Assessment & Plan Assessment * 75 year old F receiving IV Vancomycin, Cefepime, Azithromycin, Daptomycin, and Fluconazole (on chronically) for treatment of sepsis secondary to PNA vs SSTI (sacral/foot wounds) vs osteomyelitis; also has VRE in urine; yeast growing in bronchial washing * Day # 5 of antimicrobial therapy. 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 * Patient continues Vancomycin for presumed MRSA pneumonia (+ MRSA nasal swab however no growth of MRSA in sputum cxs to date) Plan Vancomycin * Random level of 22.4 mcg/mL drawn 06/17/21 @ 0503 remains supratherapeutic * Continue to *HOLD* Vancomycin given sustained supratherapeutic level in setting of worsened renal function * Goal trough level for sepsis/pulm/osteo : 15 to 20 mcg/mL * Random level ordered for: 06/18/21 with AM labs to reassess when next Vancomycin level is due Daptomycin * Continue Daptomycin 400mg (dosed 8mg/kg IBW) IV q48 for CrCl <30 mL/min; aggressive dosing for VRE Cefepime * Continue Cefepime 1000mg IV q24 for CrCl <11 mL/min (target dose is 2g IV q8) Pharmacy will continue to follow and will adjust dose/frequency as necessary. Thank you.
[2021-06-17] MEDS: DAPTOmycin 400 MG in SYRINGE 0 ML IV SCH (11:50)
[2021-06-17] MEDS: FLUCONAZOLE 200 MG/100 ML BAG IV SCH (11:51)
[2021-06-17] MEDS: AZITHROMYCIN 250 MG in DEXTROSE 5% 250 ML IV SCH (13:10)
[2021-06-17] MEDS: FAMOTIDINE 20 MG in SYRINGE 3 ML IV SCH (13:15)
--- NOTE | 2021-06-17 14:42 | Palliative Care Progress Note ---
Date of Service June 17, 2021 Assessment & Plan (1) Palliative care encounter: Plan: Daughter Anna is now en route from [place]. She has discovered an advance directive for Anette which indicates DNR. At this time, her code status has been changed to no CPR. Palliative care will meet with Anna after her arrival to assist further with goals of care. Discussed with RN (2) Anemia: (3) Chronic incomplete quadriplegia: (4) Diabetes type 2, controlled: (5) Acute on chronic renal failure: Admission and Anticipated Discharge Date Admission Date: June 13, 2021 Subjective Emergent reintubation and bronchoscopy overnight. Progressive renal failure. She is resting comfortably on vent. Review of Systems Review of Systems: Unobtainable due to endotracheal tube and Unobtainable due to reduced consciousness Palliative Performance Score 20% Physical Exam Constitutional: + ill appearing and + mechanically ventilated Respiratory: FiO2 40, PEEP 5, sats high 90s Cardiovascular: Rate/Rhythm: regular rate and regular rhythm Musculoskeletal: Extremities: + muscle atrophy Neurologic: lethargic but arousable Results & Data ([facility]) Vital Signs (Past 12 Hours) Vital Signs Temp Pulse Resp BP Pulse Ox 06/17/21 12:55 98.8 F 69 140/74 98 06/17/21 11:55 98.4 F 71 124/70 97 06/17/21 11:23 71 24 99 06/17/21 10:55 98.2 F 70 135/70 98 06/17/21 09:55 98.1 F 72 101/60 100 06/17/21 08:55 97.9 F 79 181/154 H 100 06/17/21 08:10 97.7 F 72 146/76 H 100 06/17/21 08:00 76 06/17/21 07:14 74 24 100 06/17/21 07:10 97.3 F L 76 141/80 H 100 06/17/21 04:25 97.2 F L 81 76/53 L 99 06/17/21 04:10 97.2 F L 84 73/50 L 99 06/17/21 03:55 97.3 F L 90 80/49 L 98 06/17/21 03:40 97.3 F L 90 24 91/58 L 98 06/17/21 03:25 97.3 F L 95 H 118/62 86 L 06/17/21 03:10 97.5 F L 82 98/58 L 06/17/21 02:55 97.7 F 82 110/61 66 L PG Care Time/CCT Total # of Minutes Spent Total Time Spent with Patient: Total time spent is greater than 50% in coordination of care (as documented) at patient's floor/unit and/or counseling patient: Coding Level of Care Code 92326 Subseq Hosp Care Lvl 2 Diagnoses Palliative care encounter Z51.5 Anemia D64.9 Anemia type: unspecified type Chronic incomplete quadriplegia G82.50 Diabetes type 2, controlled E11.9 Diabetes mellitus fpc insulin use: unspecified fpc insulin use status Diabetes mellitus complication status: without complication Acute on chronic renal failure N17.9; N18.9 (1) Anemia Anemia type: unspecified type Qualified Code(s): D64.9 - Anemia, unspecified (2) Diabetes type 2, controlled Diabetes mellitus fpc insulin use: unspecified buttermaker insulin use status Diabetes mellitus complication status: without complication Qualified Code(s): E11.9 - Type 2 diabetes mellitus without complications
[2021-06-17] MEDS ORDERED: INSULIN GLARGINE SOLOSTAR 100 UNITS/ML 3 ML PEN SC ONE (16:00)
--- NOTE | 2021-06-17 18:40 | Hospitalist Progress Note ---
Date of Service June 17, 2021 Assessment & Plan (1) Multifocal pneumonia: Plan: Aspiration likely. Remains on cefepime. Completed 5-day course of zithromax. Multiple episodes of intubation/extubation this admission - most recent intubation overnight. Defer vent management to critical care. (2) Acute respiratory failure with hypoxia: Plan: 2nd to #1. Intubated 06/13, extubated 06/14. Re-intubated 06/14, extubated 06/16. Unfortunately re-intubated again early this am due to worsening hypoxia/distress on BIPAP. (3) Mucus plugging of bronchi: Plan: s/p multiple bronchs this admission. s/p bronch overnight with removal of L mainstem bronchus plug. (4) Osteomyelitis: Plan: Right heel. s/p: 1. Right irrigation and debridement of heel ulcer. 2. Evacuation of right heel abscess. 3. Irrigation and sharp excisional debridement 5.5 x 5 cm x 1.0 cm neuropathic ulcer. 4. Partial calcanectomy. 5. Application antibiotic Stimulan beads. 6. Debridement septic Achilles tendon. 7. Excisional debridement including skin, subcutaneous fat, periosteum and fascia, right heel. Performed by Dr Maher, 05/24/21. Previous cultures with pseudomonas & MRSA. Remains on cefepime + daptomycin, respectively. Right foot clean. Cont dressing changes. (5) Acute on chronic renal failure: Plan: Acute renal failure / ALIX 2nd to ATN from sepsis. Creatinine continues to worsen. Continue supportive care. Patient has previously stated she would not want hemodialysis. Serial BMPs. [place] in place. Baseline Cr 1.6 to 1.8. (6) Quadriplegia: Plan: 2nd to previous cervical spine surgery. (7) Hypothyroid: Plan: Continue home Synthroid, recently uptitrated to 125mcg daily. (8) CAD (coronary artery disease): Plan: No evidence of ACS. Cont plavix, etc. (9) Chronic osteomyelitis: Plan: see #2 above (10) S/P PICC central line placement: Plan: Right arm (11) Diabetes type 2, controlled: Plan: Pharmacy recommendations & assistance appreciated. Defer to ICU protocol. (12) UTI (urinary tract infection): Plan: VRE. Daptomycin. Day #3 (start date 06/15/21). 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 patient had worsening respiratory distress despite BIPAP. IVAN Dacosta, contacted pt's daughter who lives down south in [place]. lengthy discussion held -- decision made at daughter's directive to proceed with intubation (see note from Mr Zacarias re: details of that discussion). emergency bronchoscopy performed following intubation - left mainstem bronchus mucous plug found and removed. saw patient on the vent this am. was resting comfortably. opened eyes to her name being called. shook head "no" when asked if she was in pain or was uncomfortable. nursing staff was at bedside - dressings removed from right foot and sacral decub and I evaluated these. Review of Systems Review of Systems: Unobtainable due to endotracheal tube Physical Exam Physical Exam: gen: intubated, eyes open, follows commands, shakes head yes/no mouth: ETT in place neck: no JVD heart: RRR, s1 s2, no murmur lungs: course BS left chest, clear on right, no distress abd: minimally distended, BS+, NT, no HSM ext: contractures of legs, trace edema, pulses 2+ b/l skin: large sacral decubitus ulcer with clean base, no tracking, no obvious visible bone; right heel - dressing material in place with numerous kirk; no drainage PICC line right arm clean/dry Results & Data Results & Data ([facility]) Vital Signs (Past 12 Hours) Vital Signs Temp Pulse Resp BP Pulse Ox 06/17/21 15:00 70 24 98 06/17/21 12:55 37.1 C 69 140/74 98 06/17/21 11:55 36.9 C 71 124/70 97 06/17/21 11:23 71 24 99 06/17/21 10:55 36.8 C 70 135/70 98 06/17/21 09:55 36.7 C 72 101/60 100 06/17/21 08:55 36.6 C 79 181/154 H 100 06/17/21 08:10 36.5 C 72 146/76 H 100 06/17/21 08:00 76 06/17/21 07:14 74 24 100 06/17/21 07:10 36.3 C L 76 141/80 H 100 Laboratory Results Laboratory Results - last 24 hr 06/16/21 06/17/21 06/17/21 20:38 00:26 03:03 WBC RBC Hgb POC Hgb 8.8 L Hct POC Hct 26 L MCV MCH MCHC RDW Std Deviation RDW Coeff of Alicia Plt Count MPV Immature Gran % (Auto) Neut % (Auto) Lymph % (Auto) [place] % (Auto) Eos % (Auto) Baso % (Auto) Neut # (Auto) Lymph # (Auto) [place] # (Auto) Eos # (Auto) Baso # (Auto) Immature Gran # (Auto) Tear Drop Cells Sample Site R Brachial POC pH 7.28 L POC pCO2 45 POC pO2 42 L POC HCO3 21 POC Total CO2 23 L POC Base Excess -6.0 ABG pH (Temp Correct) 7.283 L ABG pCO2 (Temp Corrct 45 POC ABG pO2 at Pt Temp 41 POC ABG O2 Sat 71.0 L Ulices Test Pass O2 Delivery Device Ventilator POC O2 Rate 24 POC FiO2 100 Tidal Volume 370 PEEP 10 POC Sodium 142 Sodium POC Potassium 4.2 Potassium Chloride Carbon Dioxide Anion Gap BUN Creatinine Est Cr Clr Drug Dosing Est GFR ( Amer) Est GFR (Non-Af Amer) BUN/Creatinine Ratio Glucose POC Glucose 124 H 168 H Calcium Phosphorus Magnesium Random Vancomycin 06/17/21 06/17/21 06/17/21 05:03 05:03 05:03 WBC 22.12 H D RBC 2.74 L Hgb 9.1 L POC Hgb Hct 28.3 L POC Hct MCV 103.3 H MCH 33.2 MCHC 32.2 RDW Std Deviation 54.6 H RDW Coeff of Alicia 14.7 H Plt Count 790 H D MPV 10.5 H Immature Gran % (Auto) 1.5 Neut % (Auto) 83.9 Lymph % (Auto) 4.7 [place] % (Auto) 8.9 Eos % (Auto) 0.8 Baso % (Auto) 0.2 Neut # (Auto) 18.58 H Lymph # (Auto) 1.03 L [place] # (Auto) 1.96 H Eos # (Auto) 0.18 Baso # (Auto) 0.04 Immature Gran # (Auto) 0.33 H Tear Drop Cells 1+ Sample Site POC pH POC pCO2 POC pO2 POC HCO3 POC Total CO2 POC Base Excess ABG pH (Temp Correct) ABG pCO2 (Temp Corrct POC ABG pO2 at Pt Temp POC ABG O2 Sat Ulices Test O2 Delivery Device POC O2 Rate POC FiO2 Tidal Volume PEEP POC Sodium Sodium 141 POC Potassium Potassium 3.8 D Chloride 109 H Carbon Dioxide 18 L Anion Gap 14.0 H BUN 95 H Creatinine 5.14 H* D Est Cr Clr Drug Dosing 8.7 Est GFR ( Amer) 8.9 Est GFR (Non-Af Amer) 7.7 BUN/Creatinine Ratio 18.5 Glucose 230 H POC Glucose Calcium 8.1 L Phosphorus 5.3 H Magnesium 2.8 H Random Vancomycin 22.4 06/17/21 06/17/21 06/17/21 08:21 11:55 16:04 WBC RBC Hgb POC Hgb Hct POC Hct MCV MCH MCHC RDW Std Deviation RDW Coeff of Alicia Plt Count MPV Immature Gran % (Auto) Neut % (Auto) Lymph % (Auto) [place] % (Auto) Eos % (Auto) Baso % (Auto) Neut # (Auto) Lymph # (Auto) [place] # (Auto) Eos # (Auto) Baso # (Auto) Immature Gran # (Auto) Tear Drop Cells Sample Site POC pH POC pCO2 POC pO2 POC HCO3 POC Total CO2 POC Base Excess ABG pH (Temp Correct) ABG pCO2 (Temp Corrct POC ABG pO2 at Pt Temp POC ABG O2 Sat Ulices Test O2 Delivery Device POC O2 Rate POC FiO2 Tidal Volume PEEP POC Sodium Sodium POC Potassium Potassium Chloride Carbon Dioxide Anion Gap BUN Creatinine Est Cr Clr Drug Dosing Est GFR ( Amer) Est GFR (Non-Af Amer) BUN/Creatinine Ratio Glucose POC Glucose 251 H 223 H 205 H Calcium Phosphorus Magnesium Random Vancomycin Diagnostic Findings Chest X-Ray 06/17/21 01:51 XR chest 1V portable HISTORY: 75 years-old Female s/p intubation acute respiratory failure COMPARISON: Chest radiograph 03/16/2021 at 6:27 AM TECHNIQUE: Portable AP view of the chest FINDINGS: Endotracheal tube overlies the midline, 3.0 cm superior to the kati. A right- sided PICC is noted with tip in the expected location of the upper SVC. No pneumothorax. Trace right pleural effusion with interstitial opacities throughout the right lung. Interval development of complete opacification of the left hemithorax with associated volume loss. Cervical spinal fusion hardware. Surgical clips of the left upper neck. Degenerative changes of the shoulders and spine. IMPRESSION: 1. Endotracheal and right PICC placement as above. 2. No pneumothorax. 3. Small right pleural effusion with unchanged interstitial coarsening of the right lung. 4. Interval development of complete opacification of the left hemithorax with associated volume loss, possibly secondary to mucous plugging with atelectasis. ACT 112: Negative or not required by law. The above report was generated using voice recognition software. It may contain grammatical, syntax or spelling errors. Electronically signed by: Aurelio Fernández M.D. 06/17/2021 7:18 AM Chest X-Ray 06/17/21 02:29 XR chest 1V portable HISTORY: 75 years-old Female repeat respiratory failure COMPARISON: Chest radiograph 06/17/2021, chest CT 06/13/2021 TECHNIQUE: AP view of the chest FINDINGS: Endotracheal tube overlies the midline, 3.6 cm superior to the kati. A right- sided PICC is noted with tip in the expected location of the upper SVC. No pneumothorax. Trace right pleural effusion with interstitial opacities throughout the right lung. Complete opacification of the left hemithorax redemonstrated with associated volume loss. Cervical spinal fusion hardware. Surgical clips of the left upper neck. Degenerative changes of the shoulders and spine. IMPRESSION: 1. Endotracheal and right PICC placement as above. 2. No pneumothorax. 3. Small right pleural effusion with unchanged interstitial coarsening of the right lung. 4. Complete opacification of the left hemithorax redemonstrated with associated volume loss. ACT 112: Negative or not required by law. The above report was generated using voice recognition software. It may contain grammatical, syntax or spelling errors. Electronically signed by: Aurelio Fernández M.D. 06/17/2021 7:12 AM Chest X-Ray 06/17/21 03:40 XR chest 1V portable HISTORY: 75 years-old Female s/p formal bronch status post recent bronchoscopy COMPARISON: Chest radiograph 06/17/2020 09/29/2012 exam TECHNIQUE: Portable AP view of the chest FINDINGS: Endotracheal tube overlies the midline, 4.5 cm superior to the kati. A right- sided PICC is present with distal tip in the expected location of the upper SVC. No pneumothorax. Right greater than left interstitial opacities with patchy consolidative densities about the left lung. There is improved aeration of the left lung from comparison. Small left and trace right pleural effusions. Bones appear grossly intact. Surgical clips of the abdominal right upper quadrant. IMPRESSION: 1. Lines and tubes as above. 2. Improved aeration of the left lung status post bronchoscopy with left greater than right interstitial densities and left lung airspace consolidation. 3. No pneumothorax. 4. Trace right and small left pleural effusions. ACT 112: Negative or not required by law. The above report was generated using voice recognition software. It may contain grammatical, syntax or spelling errors. Electronically signed by: Aurelio Fernández M.D. 06/17/2021 7:20 AM PG Care Time/CCT Total # of Minutes Spent Total Time Spent with Patient: Total time spent is greater than 50% in coordination of care (as documented) at patient's floor/unit and/or counseling patient: Coding Level of Care Code 66199 Subseq Hosp Care Lvl 2 Diagnoses Multifocal pneumonia J18.9 Osteomyelitis M86.9 Acute on chronic renal failure N17.9; N18.9 Quadriplegia G82.50 Hypothyroid E03.9 Hypothyroidism type: unspecified CAD (coronary artery disease) I25.10 Coronary Disease-Associated Artery/Lesion type: [place] artery [place] vs. 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: unspecified penitentiary insulin use status Diabetes mellitus complication status: without complication UTI (urinary tract infection) N39.0 Hyperkalemia E87.5 Stage IV pressure ulcer of right heel L89.614 Acute respiratory failure with hypoxia J96.01 Septic shock A41.9; R65.21 Mucus plugging of bronchi T17.500A Decubitus ulcer of sacral region, stage 4 L89.154 Suhail infection B37.9 (1) Hypothyroid Hypothyroidism type: unspecified Qualified Code(s): E03.9 - Hypothyroidism, unspecified (2) CAD (coronary artery disease) Coronary Disease-Associated Artery/Lesion type: [place] artery [place] vs. transplanted heart: [place] heart Associated angina: without angina Qualified Code(s): I25.10 - Atherosclerotic heart disease of [place] coronary artery without angina pectoris (3) Diabetes type 2, controlled Diabetes mellitus penitentiary insulin use: unspecified penitentiary insulin use status Diabetes mellitus complication status: without complication Qualified Code(s): E11.9 - Type 2 diabetes mellitus without complications
[2021-06-17] MEDS: CEFEPIME 1,000 MG in SYRINGE 0 ML IV SCH (20:31)
[2021-06-17] MEDS: ALBUTEROL 0.083% NEBU SOLN 3 ML VIAL NEB PRN (23:40)
[2021-06-18] MEDS: INSULIN ASPART 100 UNITS/ML 3 ML PEN SC SCH ×5 (00:51→16:42)
[2021-06-18] MEDS: ALBUTEROL 0.083% NEBU SOLN 3 ML VIAL NEB PRN (02:20)
[2021-06-18] MEDS: fentaNYL DRIP 1,250 MCG/250 ML BAG IV SCH (05:23)
[2021-06-18 05:28] LABS: Basophils # (auto) 0.03 K/uL (0-0.2); Basophils % (auto) 0.3 %; Eosinophils # (auto) 0.21 K/uL (0-0.5); Eosinophils % (auto) 1.8 %; Hematocrit (blood only) 22.4 % (37-47); Hemoglobin 7.4 g/dL (12.0-16.0); Immature Granulocytes # (auto) 0.13 K/uL (0.00-0.02); Immature Granulocytes % (auto) 1.1 %; Lymphocytes # (auto) 1.42 K/uL (1.2-3.4); Lymphocytes % (auto) 11.9 %; Mean Corpuscular Hemoglobin 33.2 pg (25-34); Mean Corpuscular Volume 100.4 fL (80-100); Mean Platelet Volume 10.4 fL (7.4-10.4); Monocytes # (auto) 0.79 K/uL (0.11-0.59); Monocytes % (auto) 6.6 %; Neutrophils # (auto) 9.36 K/uL (1.4-6.5); Neutrophils % (auto) 78.3 %; Platelet Count 408 K/uL (130-400); RDW Coefficient of Variation 14.5 % (11.5-14.5); RDW Standard Deviation 52.3 fL (36.4-46.3); Red Blood Count 2.23 M/uL (4.2-5.4); White Blood Count 11.94 K/uL (4.8-10.8)
[2021-06-18 05:36] LABS: Tear Drop Cells 1+
[2021-06-18 05:40] LABS: Alanine Aminotransferase 26 U/L (12-78); Albumin Level 1.8 gm/dl (3.4-5.0); Alkaline Phosphatase 59 U/L (45-117); Aspartate Aminotransferase 16 U/L (15-37); BUN Creatinine Ratio 18.1 (10-20); Bilirubin Direct < 0.1 mg/dl (0-0.2); Bilirubin,Total 0.4 mg/dl (0.2-1); Blood Urea Nitrogen 103 mg/dl (7-18); Calcium 7.6 mg/dl (8.5-10.1); Carbon Dioxide 17 mmol/L (21-32); Chloride 111 mmol/L (98-107); Creatinine Clr Calc Pharmacy 7.8 ml/min; Est GFR (African American) 7.8 ml/min; Est GFR (Non-African American) 6.8 ml/min; Glucose 75 mg/dl (70-99); Magnesium 2.7 mg/dl (1.8-2.4); Phosphorus 4.2 mg/dl (2.5-4.9); Potassium 3.8 mmol/L (3.5-5.1); Sodium 143 mmol/L (136-145); Total Protein 5.6 gm/dl (6.4-8.2)
[2021-06-18 05:47] LABS: iSTAT Allen Test Pass; iSTAT Arterial Blood Gas HCO3 17 meg/L (19-24); iSTAT Arterial Blood Gas pCO2 24 mmHg (35-46); iSTAT Arterial Blood Gas pH 7.46 (7.35-7.45); iSTAT Arterial Blood Gas pO2 82 mmHg (80-95); iSTAT Carbon Dioxide 18 mmol/L (24-31); iSTAT FiO2 30 %; iSTAT Site L Radial
[2021-06-18] MEDS: LEVOTHYROXINE SODIUM 100 MCG in SYRINGE 0 ML IV SCH (08:39)
[2021-06-18] MEDS: HYDROCORTISONE SOD 50 MG in SYRINGE 0 ML IV SCH (08:41)
[2021-06-18] MEDS: HEPARIN SOD 5,000 UNIT/0.5 ML VIAL SQ SCH (08:41)
--- NOTE | 2021-06-18 08:41 | XRay Report ---
SINGLE VIEW CHEST CLINICAL HISTORY: Respiratory failure. FINDINGS: An AP, portable, upright chest radiograph is compared to study dated 06/17/2021 and correlat ed with chest CT dated 06/13/2021. The examination is degraded by portable technique and patient rotat ion. An endotracheal tube and a right PICC line are unchanged in position. The heart is top normal fo r projection noting atherosclerotic calcification of the thoracic aorta. There are left larger than r ight pleural effusions with multifocal airspace consolidation. This is greatest at the lung bases. No pneumothorax is seen. The skeletal structures are osteopenic. The bony thorax is grossly intact. Fus ion hardware is noted in the lower cervical spine. IMPRESSION: 1. Stable lines and tubes. 2. Multifocal airspace consolidation is again seen, greatest at the lung bases. This appears modestly cleared in the left upper lobe from yesterday. 3. Left larger than right pleural effusions. ACT 112: Negative or not required by law. Electronically signed by: Flako Mcdonough M.D. 06/18/2021 8:40 AM
--- NOTE | 2021-06-18 09:08 | Critical Care Progress Note ---
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 Critical care indication: need for mechanical ventilation Plan: Neurologic CAM ICU: Negative Sedation, analgesia: fentanyl Cardiac BP stable at this time, off vasopressors Continue with home metoprolol Continue home clopidogrel, ezetimibe Respiratory -- VDRF Likely secondary to mucous plugging with aspiration pneumonia Continue with ventilatory support Keep RASS -1 Daily sedation holidays and SBT's COVID-19 PCR negative Nasal MRSA positive Procalcitonin 0.46 Patient with history of tobacco use, though without known pulmonary disease Suspect ARF secondary to mucous plugging, sepsis, aspiration Patient underwent bronchoscopy (06/13) and repeat bronchoscopy on 06/14 and 06/17 with clearing of mucus --> blood culture growing yeast which is most likely a colonizer -Patient failed extubation x2 this is third intubation. In discussion with daughter patient will likely proceed with terminal extubation awaiting daughter's arrival Gastrointestinal No history of GERD, Pepcid Renal/electrolytes Acute kidney injury on CKD, baseline Cr of 1.6-1.8 Creatinine continued worsening. Replete electrolytes as needed Genitourinary VRE in the urine Strict I/O's Endocrine ICU hyperglycemia protocol Continue home levothyroxine Hematologic Monitor H&H, transfuse if hemoglobin less than 7 Blood type: B positive Infectious disease Blood cultures negative to date, urine culture growing VRE --> on daptomycin History notable for recent MRSA and Pseudomonas osteomyelitis of the right foot --> [facility] Integumentary Large sacral decubitus ulcers noted. Chronically on fluconazole. --Prophylaxis VTE: Heparin GI: Pepcid Lines: Right arm PICC, positive [place] Diet: Tube feeds Palliative care already seeing the patient -Patient does not want to undergo dialysis (2) Multifocal pneumonia: (3) Acute on chronic renal failure: (4) Chronic osteomyelitis: (5) Altered mental status: Admission and Anticipated Discharge Date Admission Date: June 13, 2021 Supervising Physician Co-Signing Physician Notes I have personally spent 40 minutes of critical care time in the direct management of this patient. This is a life/limb threatening event. This includes time spent evaluating patient, direct bedside care, chart review, placing orders, interpretation of diagnostic studies, discussion with consultants, patient, and family members, as well as other required patient management activities. This time is exclusive of all separately billable procedures, and teaching time and separate from and in addition to any other critical care service time. Subjective No overnight events. Staff was in contact with daughter who is on her way to bedside Review of Systems Review of Systems: Unobtainable due to endotracheal tube Physical Exam Physical Exam: General: Alert. nontoxic. Skin: Warm, dry, Head: Atraumatic Ears, nose, mouth and throat: airway obscured by endotracheal tube Cardiovascular: Normal peripheral perfusion Respiratory: no respiratory distress, ventilator settings reviewed Gastrointestinal: Non distended Musculoskeletal: No deformity Results & Data Results & Data ([facility]) Vital Signs (Past 12 Hours) Vital Signs Temp Pulse Resp BP Pulse Ox 06/18/21 07:09 76 24 98 06/18/21 05:25 77 24 96 06/18/21 02:15 71 24 96 06/18/21 01:55 37.4 C 72 114/60 96 06/18/21 00:55 37.3 C 81 121/60 96 06/17/21 23:55 37.4 C 73 115/59 L 95 06/17/21 23:40 65 24 97 06/17/21 22:55 37.5 C 63 120/66 98 06/17/21 21:55 37.5 C 63 122/64 98 Laboratory Results 06/18/21 06/18/21 06/18/21 Range/Units 08:47 05:33 04:44 WBC (4.8-10.8) K/uL RBC (4.2-5.4) M/uL Hgb (12.0-16.0) g/dL Hct (37-47) % MCV (80-100) fL MCH (25-34) pg MCHC (32-36) g/dL RDW Std Deviation (36.4-46.3) fL RDW Coeff of Alicia (11.5-14.5) % Plt Count (130-400) K/uL MPV (7.4-10.4) fL Immature Gran % (Auto) % Neut % (Auto) % Lymph % (Auto) % [place] % (Auto) % Eos % (Auto) % Baso % (Auto) % Neut # (Auto) (1.4-6.5) K/uL Lymph # (Auto) (1.2-3.4) K/uL [place] # (Auto) (0.11-0.59) K/uL Eos # (Auto) (0-0.5) K/uL Baso # (Auto) (0-0.2) K/uL Immature Gran # (Auto) (0.00-0.02) K/uL Tear Drop Cells Sample Site L Radial POC pH 7.46 H (7.35-7.45) POC pCO2 24 L (35-46) mmHg POC pO2 82 (80-95) mmHg POC HCO3 17 L (19-24) nael/L POC Total CO2 18 L (24-31) mmol/L POC Base Excess -7.0 (-9-1.8) nael/L POC ABG O2 Sat 97.0 H (90-95) % Ulices Test Pass O2 Delivery Device Ventilator POC O2 Rate 24 Minute Ventilation 8.8 POC FiO2 30 % Tidal Volume 370 PEEP 5 Sodium (136-145) mmol/L Potassium (3.5-5.1) mmol/L Chloride (98-107) mmol/L Carbon Dioxide (21-32) mmol/L Anion Gap (3-11) BUN (7-18) mg/dl Creatinine (0.6-1.2) mg/dl Est Cr Clr Drug Dosing ml/min Est GFR ( Amer) ml/min Est GFR (Non-Af Amer) ml/min BUN/Creatinine Ratio (10-20) Glucose (70-99) mg/dl POC Glucose 91 (70-99) mg/dl Calcium (8.5-10.1) mg/dl Phosphorus (2.5-4.9) mg/dl Magnesium (1.8-2.4) mg/dl Total Bilirubin (0.2-1) mg/dl Direct Bilirubin (0-0.2) mg/dl AST (15-37) U/L ALT (12-78) U/L Alkaline Phosphatase (45-117) U/L Total Protein (6.4-8.2) gm/dl Albumin (3.4-5.0) gm/dl Procalcitonin 5.94 H (0-0.5) ng/ml Random Vancomycin mcg/ml 06/18/21 06/18/21 06/18/21 Range/Units 04:44 04:44 04:44 WBC 11.94 H D (4.8-10.8) K/uL RBC 2.23 L (4.2-5.4) M/uL Hgb 7.4 L (12.0-16.0) g/dL Hct 22.4 L (37-47) % MCV 100.4 H (80-100) fL MCH 33.2 (25-34) pg MCHC 33.0 (32-36) g/dL RDW Std Deviation 52.3 H (36.4-46.3) fL RDW Coeff of Alicia 14.5 (11.5-14.5) % Plt Count 408 H (130-400) K/uL MPV 10.4 (7.4-10.4) fL Immature Gran % (Auto) 1.1 % Neut % (Auto) 78.3 % Lymph % (Auto) 11.9 % [place] % (Auto) 6.6 % Eos % (Auto) 1.8 % Baso % (Auto) 0.3 % Neut # (Auto) 9.36 H (1.4-6.5) K/uL Lymph # (Auto) 1.42 (1.2-3.4) K/uL [place] # (Auto) 0.79 H (0.11-0.59) K/uL Eos # (Auto) 0.21 (0-0.5) K/uL Baso # (Auto) 0.03 (0-0.2) K/uL Immature Gran # (Auto) 0.13 H (0.00-0.02) K/uL Tear Drop Cells 1+ Sample Site POC pH (7.35-7.45) POC pCO2 (35-46) mmHg POC pO2 (80-95) mmHg POC HCO3 (19-24) nael/L POC Total CO2 (24-31) mmol/L POC Base Excess (-9-1.8) nael/L POC ABG O2 Sat (90-95) % Ulices Test O2 Delivery Device POC O2 Rate Minute Ventilation POC FiO2 % Tidal Volume PEEP Sodium 143 (136-145) mmol/L Potassium 3.8 (3.5-5.1) mmol/L Chloride 111 H (98-107) mmol/L Carbon Dioxide 17 L (21-32) mmol/L Anion Gap 15.0 H (3-11) BUN 103 H (7-18) mg/dl Creatinine 5.70 H* D (0.6-1.2) mg/dl Est Cr Clr Drug Dosing 7.8 ml/min Est GFR ( Amer) 7.8 ml/min Est GFR (Non-Af Amer) 6.8 ml/min BUN/Creatinine Ratio 18.1 (10-20) Glucose 75 (70-99) mg/dl POC Glucose (70-99) mg/dl Calcium 7.6 L (8.5-10.1) mg/dl Phosphorus 4.2 D (2.5-4.9) mg/dl Magnesium 2.7 H (1.8-2.4) mg/dl Total Bilirubin 0.4 (0.2-1) mg/dl Direct Bilirubin < 0.1 (0-0.2) mg/dl AST 16 (15-37) U/L ALT 26 (12-78) U/L Alkaline Phosphatase 59 (45-117) U/L Total Protein 5.6 L (6.4-8.2) gm/dl Albumin 1.8 L (3.4-5.0) gm/dl Procalcitonin (0-0.5) ng/ml Random Vancomycin 23.7 mcg/ml 06/18/21 06/17/21 06/17/21 Range/Units 00:34 20:28 16:04 WBC (4.8-10.8) K/uL RBC (4.2-5.4) M/uL Hgb (12.0-16.0) g/dL Hct (37-47) % MCV (80-100) fL MCH (25-34) pg MCHC (32-36) g/dL RDW Std Deviation (36.4-46.3) fL RDW Coeff of Alicia (11.5-14.5) % Plt Count (130-400) K/uL MPV (7.4-10.4) fL Immature Gran % (Auto) % Neut % (Auto) % Lymph % (Auto) % [place] % (Auto) % Eos % (Auto) % Baso % (Auto) % Neut # (Auto) (1.4-6.5) K/uL Lymph # (Auto) (1.2-3.4) K/uL [place] # (Auto) (0.11-0.59) K/uL Eos # (Auto) (0-0.5) K/uL Baso # (Auto) (0-0.2) K/uL Immature Gran # (Auto) (0.00-0.02) K/uL Tear Drop Cells Sample Site POC pH (7.35-7.45) POC pCO2 (35-46) mmHg POC pO2 (80-95) mmHg POC HCO3 (19-24) nael/L POC Total CO2 (24-31) mmol/L POC Base Excess (-9-1.8) nael/L POC ABG O2 Sat (90-95) % Ulices Test O2 Delivery Device POC O2 Rate Minute Ventilation POC FiO2 % Tidal Volume PEEP Sodium (136-145) mmol/L Potassium (3.5-5.1) mmol/L Chloride (98-107) mmol/L Carbon Dioxide (21-32) mmol/L Anion Gap (3-11) BUN (7-18) mg/dl Creatinine (0.6-1.2) mg/dl Est Cr Clr Drug Dosing ml/min Est GFR ( Amer) ml/min Est GFR (Non-Af Amer) ml/min BUN/Creatinine Ratio (10-20) Glucose (70-99) mg/dl POC Glucose 73 122 H 205 H (70-99) mg/dl Calcium (8.5-10.1) mg/dl Phosphorus (2.5-4.9) mg/dl Magnesium (1.8-2.4) mg/dl Total Bilirubin (0.2-1) mg/dl Direct Bilirubin (0-0.2) mg/dl AST (15-37) U/L ALT (12-78) U/L Alkaline Phosphatase (45-117) U/L Total Protein (6.4-8.2) gm/dl Albumin (3.4-5.0) gm/dl Procalcitonin (0-0.5) ng/ml Random Vancomycin mcg/ml 06/17/21 Range/Units 11:55 WBC (4.8-10.8) K/uL RBC (4.2-5.4) M/uL Hgb (12.0-16.0) g/dL Hct (37-47) % MCV (80-100) fL MCH (25-34) pg MCHC (32-36) g/dL RDW Std Deviation (36.4-46.3) fL RDW Coeff of Alicia (11.5-14.5) % Plt Count (130-400) K/uL MPV (7.4-10.4) fL Immature Gran % (Auto) % Neut % (Auto) % Lymph % (Auto) % [place] % (Auto) % Eos % (Auto) % Baso % (Auto) % Neut # (Auto) (1.4-6.5) K/uL Lymph # (Auto) (1.2-3.4) K/uL [place] # (Auto) (0.11-0.59) K/uL Eos # (Auto) (0-0.5) K/uL Baso # (Auto) (0-0.2) K/uL Immature Gran # (Auto) (0.00-0.02) K/uL Tear Drop Cells Sample Site POC pH (7.35-7.45) POC pCO2 (35-46) mmHg POC pO2 (80-95) mmHg POC HCO3 (19-24) nael/L POC Total CO2 (24-31) mmol/L POC Base Excess (-9-1.8) nael/L POC ABG O2 Sat (90-95) % Ulices Test O2 Delivery Device POC O2 Rate Minute Ventilation POC FiO2 % Tidal Volume PEEP Sodium (136-145) mmol/L Potassium (3.5-5.1) mmol/L Chloride (98-107) mmol/L Carbon Dioxide (21-32) mmol/L Anion Gap (3-11) BUN (7-18) mg/dl Creatinine (0.6-1.2) mg/dl Est Cr Clr Drug Dosing ml/min Est GFR ( Amer) ml/min Est GFR (Non-Af Amer) ml/min BUN/Creatinine Ratio (10-20) Glucose (70-99) mg/dl POC Glucose 223 H (70-99) mg/dl Calcium (8.5-10.1) mg/dl Phosphorus (2.5-4.9) mg/dl Magnesium (1.8-2.4) mg/dl Total Bilirubin (0.2-1) mg/dl Direct Bilirubin (0-0.2) mg/dl AST (15-37) U/L ALT (12-78) U/L Alkaline Phosphatase (45-117) U/L Total Protein (6.4-8.2) gm/dl Albumin (3.4-5.0) gm/dl Procalcitonin (0-0.5) ng/ml Random Vancomycin mcg/ml Coding Level of Care Code Critical Care 1st 30-74 mins Diagnoses Acute respiratory failure J96.01 Respiratory failure complication: hypoxia Multifocal pneumonia J18.9 Acute on chronic renal failure N17.9; N18.9 Acute renal failure type: unspecified Chronic kidney disease stage: unspecified stage Chronic osteomyelitis M86.60 Altered mental status R41.82 (1) Acute respiratory failure Respiratory failure complication: hypoxia Qualified Code(s): J96.01 - Acute respiratory failure with hypoxia (2) Acute on chronic renal failure Acute renal failure type: unspecified Chronic kidney disease stage: unspecified stage Qualified Code(s): N17.9 - Acute kidney failure, unspecified; N18.9 - Chronic kidney disease, unspecified
--- NOTE | 2021-06-18 10:44 | Pharmacy Report ---
Pharmacy Abx Dose Short Note - Date of Service June 18, 2021 - Assessment & Plan Assessment * 75 year old F receiving IV Vancomycin, Cefepime, Azithromycin, Daptomycin, and Fluconazole (on chronically) for treatment of sepsis secondary to PNA vs SSTI (sacral/foot wounds) vs osteomyelitis; also has VRE in urine; yeast growing in bronchial washing * Day # 6 of antimicrobial therapy. * Renal function continues to decline SCr climbing to 5.7 today * Last Vancomycin dose was 1500mg IV x 1 on 06/13 @ 1157, however level remains > 20, even increasing slightly from yesterday * Urine culture resulted as Vancomycin-resistant Enterococcus faecium * Patient continues Vancomycin for presumed MRSA pneumonia (+ MRSA nasal swab however no growth of MRSA in sputum cxs to date) Plan Vancomycin * Random level of 23.7 mcg/mL drawn 06/18/21 with AM labs remains supratherapeutic * Continue to *HOLD* Vancomycin given sustained supratherapeutic level in setting of worsened renal function * Goal trough level for sepsis/pulm/osteo : 15 to 20 mcg/mL * Random level ordered for: 06/18/21 with AM labs to reassess when next Vancomycin level is due Daptomycin * Continue Daptomycin 400mg (dosed 8mg/kg IBW) IV q48 for CrCl <30 mL/min; aggressive dosing for VRE Cefepime * Continue Cefepime 1000mg IV q24 for CrCl <11 mL/min (target dose is 2g IV q8) Pharmacy will continue to follow and will adjust dose/frequency as necessary. Thank you.
[2021-06-18] MEDS: INSULIN GLARGINE SOLOSTAR 100 UNITS/ML 3 ML PEN SC SCH (11:49)
[2021-06-18] MEDS: FLUCONAZOLE 200 MG/100 ML BAG IV SCH (13:11)
[2021-06-18] MEDS: FAMOTIDINE 20 MG in SYRINGE 3 ML IV SCH (13:11)
[2021-06-18] MEDS: COLLAGENASE OINT 30 GM TUBE TOP SCH (13:11)
--- NOTE | 2021-06-18 20:13 | Hospitalist Progress Note ---
Date of Service June 18, 2021 Assessment & Plan (1) Multifocal pneumonia: Plan: Aspiration likely. Remains on cefepime. Completed 5-day course of zithromax. Multiple episodes of intubation/extubation this admission (3 separate instances of intubation). With SBT she has had 2 days consecutively of apneas. 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 Would likely need tracheostomy moving forward and patient has stated she would not want such. Until family/patient decide on palliative care will continue supportive care/antibiotics. (2) Acute respiratory failure with hypoxia: Plan: 2nd to #1. Intubated 06/13, extubated 06/14. Re-intubated 06/14, extubated 06/16. Intubated early AM 06/17. Remains on ventilator. See #1 above. (3) Mucus plugging of bronchi: Plan: s/p multiple bronchs this admission. (4) Osteomyelitis: Plan: Right heel. s/p: 1. Right irrigation and debridement of heel ulcer. 2. Evacuation of right heel abscess. 3. Irrigation and sharp excisional debridement 5.5 x 5 cm x 1.0 cm neuropathic ulcer. 4. Partial calcanectomy. 5. Application antibiotic Stimulan beads. 6. Debridement septic Achilles tendon. 7. Excisional debridement including skin, subcutaneous fat, periosteum and fascia, right heel. Performed by Dr Maher, 05/24/21. Previous cultures with pseudomonas & MRSA. Remains on cefepime + daptomycin, respectively. (5) Acute on chronic renal failure: Plan: Acute renal failure / ALIX 2nd to ATN from sepsis. Creatinine continues to worsen. Now nearly 6 and becoming acidotic from such. She has solitary kidney. ALIX is oliguric. Patient has previously stated she would not want hemodialysis. This was confirmed with family at bedside. I anticipate renal function will continue to worsen. Baseline Cr 1.6 to 1.8. (6) Quadriplegia: Plan: 2nd to previous cervical spine surgery. 09/2019. (7) Hypothyroid: Plan: Synthroid (8) CAD (coronary artery disease): Plan: No evidence of ACS during this visit. (9) Chronic osteomyelitis: Plan: see #2 above (10) S/P PICC central line placement: Plan: Right arm (11) Diabetes type 2, controlled: Plan: Controlled. (12) UTI (urinary tract infection): Plan: VRE. Daptomycin. Day #4 (start date 06/15/21). If family transitions to comfort care -- stop daptomycin. 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 CT abd/pelvis in April with left-sided kidney only c/w her history Plan: family will continue to discuss the pt's care but they are leaning towards initiation of comfort care Admission and Anticipated Discharge Date Admission Date: June 13, 2021 Subjective 2 visits to pt's bedside today first visit was this am during rounds SBT this am led to apnea very quickly patient was awake enough to shake her head that she was comfortable/in no pain 2nd visit was late this afternoon daughter had arrived from [place] other family including a 2nd daughter were at bedside Dr Barnett was present for this conversation we discussed events of last few days we discussed the pneumonia, apnea, concerns of phrenic nerve/diaphragm disability from prior c-spine injury/quadriplegia, likely need for dialysis and trach placement, pt's prior wishes, etc. again family confirmed that pt would not want trach, HD, etc. UOP today minimal Review of Systems Review of Systems: Unobtainable due to endotracheal tube Physical Exam Physical Exam: gen: intubated but opens eyes, shakes head yes/no mouth: ETT in place neck: no JVD heart: RRR, s1 s2, no murmur lungs: course BS b/l abd: minimally distended, BS+, NT, no HSM ext: contractures of legs, trace edema, pulses 2+ b/l Results & Data Results & Data ([facility]) Vital Signs (Past 12 Hours) Vital Signs Temp Pulse Resp BP Pulse Ox 06/18/21 18:52 65 11 L 99 06/18/21 17:55 37.3 C 67 144/68 H 99 06/18/21 16:55 37.3 C 71 140/68 99 06/18/21 15:55 37.4 C 73 137/76 99 06/18/21 15:49 65 18 98 06/18/21 14:55 37.5 C 67 143/75 H 98 06/18/21 13:55 37.5 C 65 134/69 98 06/18/21 12:55 37.6 C H 71 134/69 97 06/18/21 11:55 37.6 C H 74 136/71 96 06/18/21 11:39 84 19 96 06/18/21 10:55 37.6 C H 76 137/75 95 06/18/21 09:55 37.6 C H 72 124/63 92 06/18/21 08:55 37.6 C H 76 129/63 96 Laboratory Results Laboratory Results - last 24 hr 06/17/21 06/18/21 06/18/21 20:28 00:34 04:44 WBC RBC Hgb Hct MCV MCH MCHC RDW Std Deviation RDW Coeff of Alicia Plt Count MPV Immature Gran % (Auto) Neut % (Auto) Lymph % (Auto) [place] % (Auto) Eos % (Auto) Baso % (Auto) Neut # (Auto) Lymph # (Auto) [place] # (Auto) Eos # (Auto) Baso # (Auto) Immature Gran # (Auto) Tear Drop Cells Sample Site POC pH POC pCO2 POC pO2 POC HCO3 POC Total CO2 POC Base Excess POC ABG O2 Sat Ulices Test O2 Delivery Device POC O2 Rate Minute Ventilation POC FiO2 Tidal Volume PEEP Sodium Potassium Chloride Carbon Dioxide Anion Gap BUN Creatinine Est Cr Clr Drug Dosing Est GFR ( Amer) Est GFR (Non-Af Amer) BUN/Creatinine Ratio Glucose POC Glucose 122 H 73 Calcium Phosphorus Magnesium Total Bilirubin Direct Bilirubin AST ALT Alkaline Phosphatase Total Protein Albumin Procalcitonin Random Vancomycin 23.7 06/18/21 06/18/21 06/18/21 04:44 04:44 04:44 WBC 11.94 H D RBC 2.23 L Hgb 7.4 L Hct 22.4 L MCV 100.4 H MCH 33.2 MCHC 33.0 RDW Std Deviation 52.3 H RDW Coeff of Alicia 14.5 Plt Count 408 H MPV 10.4 Immature Gran % (Auto) 1.1 Neut % (Auto) 78.3 Lymph % (Auto) 11.9 [place] % (Auto) 6.6 Eos % (Auto) 1.8 Baso % (Auto) 0.3 Neut # (Auto) 9.36 H Lymph # (Auto) 1.42 [place] # (Auto) 0.79 H Eos # (Auto) 0.21 Baso # (Auto) 0.03 Immature Gran # (Auto) 0.13 H Tear Drop Cells 1+ Sample Site POC pH POC pCO2 POC pO2 POC HCO3 POC Total CO2 POC Base Excess POC ABG O2 Sat Ulices Test O2 Delivery Device POC O2 Rate Minute Ventilation POC FiO2 Tidal Volume PEEP Sodium 143 Potassium 3.8 Chloride 111 H Carbon Dioxide 17 L Anion Gap 15.0 H BUN 103 H Creatinine 5.70 H* D Est Cr Clr Drug Dosing 7.8 Est GFR ( Amer) 7.8 Est GFR (Non-Af Amer) 6.8 BUN/Creatinine Ratio 18.1 Glucose 75 POC Glucose Calcium 7.6 L Phosphorus 4.2 D Magnesium 2.7 H Total Bilirubin 0.4 Direct Bilirubin < 0.1 AST 16 ALT 26 Alkaline Phosphatase 59 Total Protein 5.6 L Albumin 1.8 L Procalcitonin 5.94 H Random Vancomycin 06/18/21 06/18/21 06/18/21 05:33 08:47 11:52 WBC RBC Hgb Hct MCV MCH MCHC RDW Std Deviation RDW Coeff of Alicia Plt Count MPV Immature Gran % (Auto) Neut % (Auto) Lymph % (Auto) [place] % (Auto) Eos % (Auto) Baso % (Auto) Neut # (Auto) Lymph # (Auto) [place] # (Auto) Eos # (Auto) Baso # (Auto) Immature Gran # (Auto) Tear Drop Cells Sample Site L Radial POC pH 7.46 H POC pCO2 24 L POC pO2 82 POC HCO3 17 L POC Total CO2 18 L POC Base Excess -7.0 POC ABG O2 Sat 97.0 H Ulices Test Pass O2 Delivery Device Ventilator POC O2 Rate 24 Minute Ventilation 8.8 POC FiO2 30 Tidal Volume 370 PEEP 5 Sodium Potassium Chloride Carbon Dioxide Anion Gap BUN Creatinine Est Cr Clr Drug Dosing Est GFR ( Amer) Est GFR (Non-Af Amer) BUN/Creatinine Ratio Glucose POC Glucose 91 121 H Calcium Phosphorus Magnesium Total Bilirubin Direct Bilirubin AST ALT Alkaline Phosphatase Total Protein Albumin Procalcitonin Random Vancomycin 09/21/21 16:26 WBC RBC Hgb Hct MCV MCH MCHC RDW Std Deviation RDW Coeff of Alicia Plt Count MPV Immature Gran % (Auto) Neut % (Auto) Lymph % (Auto) [place] % (Auto) Eos % (Auto) Baso % (Auto) Neut # (Auto) Lymph # (Auto) [place] # (Auto) Eos # (Auto) Baso # (Auto) Immature Gran # (Auto) Tear Drop Cells Sample Site POC pH POC pCO2 POC pO2 POC HCO3 POC Total CO2 POC Base Excess POC ABG O2 Sat Ulices Test O2 Delivery Device POC O2 Rate Minute Ventilation POC FiO2 Tidal Volume PEEP Sodium Potassium Chloride Carbon Dioxide Anion Gap BUN Creatinine Est Cr Clr Drug Dosing Est GFR ( Amer) Est GFR (Non-Af Amer) BUN/Creatinine Ratio Glucose POC Glucose 138 H Calcium Phosphorus Magnesium Total Bilirubin Direct Bilirubin AST ALT Alkaline Phosphatase Total Protein Albumin Procalcitonin Random Vancomycin PG Care Time/CCT Total # of Minutes Spent Total Time Spent with Patient: Total time spent is greater than 50% in coordination of care (as documented) at patient's floor/unit and/or counseling patient: Coding Level of Care Code 59757 Subseq Hosp Care Lvl 2 Diagnoses Multifocal pneumonia J18.9 Acute respiratory failure with hypoxia J96.01 Mucus plugging of bronchi T17.500A Osteomyelitis M86.9 Acute on chronic renal failure N17.9; N18.9 Quadriplegia G82.50 Hypothyroid E03.9 Hypothyroidism type: unspecified CAD (coronary artery disease) I25.10 Coronary Disease-Associated Artery/Lesion type: koi artery [place] vs. transplanted heart: koi heart Associated angina: without angina Chronic osteomyelitis M86.60 S/P PICC central line placement Z95.828 Diabetes type 2, controlled E11.9 Diabetes mellitus mcc insulin use: unspecified mcc insulin use status Diabetes mellitus complication status: without complication UTI (urinary tract infection) N39.0 Hyperkalemia E87.5 Stage IV pressure ulcer of right heel L89.614 Septic shock A41.9; R65.21 Decubitus ulcer of sacral region, stage 4 L89.154 Suhail infection B37.9 Solitary kidney Q60.0 (1) Hypothyroid Hypothyroidism type: unspecified Qualified Code(s): E03.9 - Hypothyroidism, unspecified (2) CAD (coronary artery disease) Coronary Disease-Associated Artery/Lesion type: koi artery [place] vs. transplanted heart: koi heart Associated angina: without angina Qualified Code(s): I25.10 - Atherosclerotic heart disease of koi coronary artery without angina pectoris (3) Diabetes type 2, controlled Diabetes mellitus predatory animal exterminator insulin use: unspecified predatory animal exterminator insulin use status Diabetes mellitus complication status: without complication Qualified Code(s): E11.9 - Type 2 diabetes mellitus without complications
[2021-06-18] MEDS ORDERED: LORazepam 0.5 MG TAB PO PRN (20:33)
[2021-06-18] MEDS ORDERED: ATROPINE SULFATE 1% OP SOLN 5 ML BTL SL PRN (20:33)
[2021-06-18] MEDS ORDERED: MoRPHine SULFATE 2 MG/ML CARP IV PRN ×2 (20:33→22:18)
[2021-06-18] MEDS ORDERED: ONDANSETRON INJ 2 MG/ML 2 ML VIAL IV PRN (20:33)
[2021-06-18] MEDS ORDERED: ONDANSETRON 4 MG OD TAB SL PRN (20:33)
--- NOTE | 2021-06-18 20:42 | Communication Note ---
Date of Service: June 18, 2021 Patient's family had arrived at bedside. Per previous conversation with patient's POAAnna, goals of care were to keep the patient intubated until family was able to be at bedside. They were able to hull line crew member who presented at bedside as well. After this, the family wished to proceed with extubation. I had a conversation with patient and family at bedside. In alignment with patient's wishes/goals, everyone is in agreement to perform extubation without intent for reintubation in the event of respiratory failure. Patient has actual ly been doing well on the ventilator after her recent intubation with bronchoscopy and mucus clearing. She continues to have worsening renal failure and patient previously had stated and per her wishes, would not wish to undergo hemodialysis. At this point, we will proceed with terminal extubation and gear goals of care towards comfort at this point. I did communicate with nursing compounding and finishing supervisor as well as clinical compounding and finishing supervisor. We will work to transfer the patient to medical floor for ongoing palliative care/comfort measures as, unfortunately, bed space is limited in the ICU currently. I did communicate this with family that we will be transitioning her to another room and they were comfortable with this as well. Per our conversation, CODE STATUS updated to DNR/DNI in the computer. Patient was extubated at 2024. Patient extubated to 2 L nasal cannula. Patient likely has several hours to days depending on respiratory status. Patient to be transferred to medical floor for ongoing management. I have personally spent 25 minutes of critical care time in the direct management of this patient. This is a life/limb threatening event. This includes time spent evaluating patient, direct bedside care, chart review, placing orders, interpretation of diagnostic studies, discussion with consultants, patient, and family members, as well as other required patient management activities. This time is exclusive of all separately billable procedures, and teaching time and separate from and in addition to any other critical care service time. Coding Level of Care Code Critical Care ea addt'l 30 min Time Spent (min) 25
[2021-06-18] MEDS ORDERED: SCOPOLAMINE 1 MG TDSY TD SCH (20:45)
[2021-06-18] MEDS ORDERED: MoRPHine SULFATE 5 MG/0.25 ML UDP PO PRN (22:18)
[2021-06-18] MEDS: CEFEPIME 1,000 MG in SYRINGE 0 ML IV SCH (23:03)
[2021-06-19] MEDS: CHECK SCOPOLAMINE PATCH PLACEMENT SCH ×3 (00:03→16:27)
[2021-06-19] MEDS: COLLAGENASE OINT 30 GM TUBE TOP SCH (10:05)
[2021-06-19] MEDS ORDERED: oxyCODONE HCL SOLN 5 MG/5 ML UDC PO PRN (12:50)
--- NOTE | 2021-06-19 12:52 | Palliative Care Progress Note ---
Date of Service June 19, 2021 Assessment & Plan (1) Dyspnea: Plan: Denies currently but has episodic dyspnea and hypoxia with mucous plugging. Continue O2 at 2L for comfort. Given renal failure, will discontinue morphine. Oxycodone oral concentrate and hydromorphone IV available if needed. (2) Difficulty clearing secretions: Plan: Scopolamine patch. Sips of water and mouth moisturizer as needed for dry mouth (3) Palliative care encounter: Plan: Talked with family at bedside. They are very supportive and feel that she is comfortable at this time. (4) Acute respiratory failure with hypoxia: (5) Mucus plugging of bronchi: (6) CAD (coronary artery disease): (7) Diabetes type 2, controlled: (8) Chronic incomplete quadriplegia: Admission and Anticipated Discharge Date Admission Date: June 13, 2021 Subjective Awake. Asking for scrambled eggs. Does complain of dry mouth. Denies pain or dyspnea. Review of Systems Review of Systems: [place] Symptom Assessment Scale Pain 0/3 Dyspnea 0/3 Fatigue 3/3 Nausea 0/3 Drowsiness 1/3 Palliative Performance Score 30% Physical Exam Constitutional: + ill appearing; no acute distress ENMT: Mouth: + dry oral mucous membranes Respiratory: moist cough Gastrointestinal (Abdomen): nontender Musculoskeletal: contractures Neurologic: functional quadriplegia PG Care Time/CCT Total # of Minutes Spent Total Time Spent with Patient: Total time spent is greater than 50% in coordination of care (as documented) at patient's floor/unit and/or counseling patient: Coding Level of Care Code 52355 Subseq Hosp Care Lvl 2 Diagnoses Dyspnea R06.00 Difficulty clearing secretions Palliative care encounter Z51.5 Acute respiratory failure with hypoxia J96.01 Mucus plugging of bronchi T17.500A CAD (coronary artery disease) I25.10 Coronary Disease-Associated Artery/Lesion type: [place] artery [place] vs. transplanted heart: [place] heart Associated angina: without angina Diabetes type 2, controlled E11.9 Diabetes mellitus shelter insulin use: unspecified shelter insulin use status Diabetes mellitus complication status: without complication Chronic incomplete quadriplegia G82.50 (1) CAD (coronary artery disease) Coronary Disease-Associated Artery/Lesion type: [place] artery [place] vs. transplanted heart: [place] heart Associated angina: without angina Qualified Code(s): I25.10 - Atherosclerotic heart disease of [place] coronary artery without angina pectoris (2) Diabetes type 2, controlled Diabetes mellitus shelter insulin use: unspecified shelter insulin use status Diabetes mellitus complication status: without complication Qualified Code(s): E11.9 - Type 2 diabetes mellitus without complications
[2021-06-19] MEDS: ACETAMINOPHEN 1,000 MG/100 ML VIAL IV PRN (20:02)
[2021-06-19] MEDS: LORazepam 0.5 MG/1 ML VIAL IV PRN (22:14)
--- NOTE | 2021-06-19 22:38 | Hospitalist Progress Note ---
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 Would likely need tracheostomy moving forward and patient has stated she would not want such. Antibiotics stopped since we have transitioned to comfort care. (2) Acute respiratory failure with hypoxia: Plan: 2nd to #1. Intubated 06/13, extubated 06/14. Re-intubated 06/14, extubated 06/16. Intubated early AM 06/17. Extubated to NC O2/ comfort care on 06/18. Cont NC O2. Asked nursing to set up suction at bedside for family to suction oral secretions, etc. (3) Mucus plugging of bronchi: Plan: s/p multiple bronchs this admission. (4) Osteomyelitis: Plan: Right heel. Abx stopped - transitioned to comfort care. (5) Acute on chronic renal failure: Plan: Acute renal failure / ALIX 2nd to ATN from sepsis. Creatinine was near 6 last check. Remains severely oliguric. She has solitary kidney. Patient declined dialysis. Baseline Cr 1.6 to 1.8. Keep parada for comfort. (6) Quadriplegia: Plan: 2nd to previous cervical spine surgery. 09/2019. (7) Hypothyroid: (8) CAD (coronary artery disease): (9) Chronic osteomyelitis: (10) Diabetes type 2, controlled: Plan: BSGs stopped (11) UTI (urinary tract infection): Plan: abx stopped -- transitioned to comfort care (12) Hyperkalemia: Plan: 2nd to #3 no Rx now on comfort (13) Stage IV pressure ulcer of right heel: Plan: provide repositioning, pain meds as needed (14) Septic shock: Plan: 2nd to #1 resolved (15) Decubitus ulcer of sacral region, stage 4: Plan: repositioning, pain meds (16) Maren infection: (17) Solitary kidney: Plan: h/o right nephrectomy - RCC? CT abd/pelvis in April with left-sided kidney only c/w her history Plan: a order expediter came to bedside last night and provided spiritual support gave support to patient/family at bedside today continue comfort care pathway discussed natural history of current status, renal failure, progression, etc Admission and Anticipated Discharge Date Admission Date: June 13, 2021 Subjective patient extubated last pm from vent comfort care initiated moved to 3east thereafter resting comfortably family at bedside during my visit coughing during the visit and family report ongoing cough constantly she cannot clear her throat family fed her some eggs this am and she enjoyed this family does not perceive any pain or discomfort Review of Systems Review of Systems: pt denies pain in any location she knows she is in hospital knows all of her children's names at bedside Physical Exam Physical Exam: gen: awake, alert, but very weak; soft voice when she speaks; coughing mouth: MM dry neck: no JVD heart: RRR, s1 s2, no murmur lungs: CTA b/l with decreased BS bases and upper airway noises (laryngeal) abd: minimally distended, BS+, NT, no HSM ext: contractures of legs, trace edema, pulses 2+ b/l neuro: quadriplegia, no use of arms/legs skin: pallor PG Care Time/CCT Total # of Minutes Spent Total Time Spent with Patient: Total time spent is greater than 50% in coordination of care (as documented) at patient's floor/unit and/or counseling patient: Coding Level of Care Code 97177 Subseq Hosp Care Lvl 1 Diagnoses Multifocal pneumonia J18.9 Acute respiratory failure with hypoxia J96.01 Mucus plugging of bronchi T17.500A Osteomyelitis M86.9 Acute on chronic renal failure N17.9; N18.9 Quadriplegia G82.50 Hypothyroid E03.9 Hypothyroidism type: unspecified CAD (coronary artery disease) I25.10 Associated angina: without angina Coronary Disease-Associated Artery/Lesion type: [place] artery [place] vs. transplanted heart: [place] heart Chronic osteomyelitis M86.60 Diabetes type 2, controlled E11.9 Diabetes mellitus complication status: without complication Diabetes mellitus snf insulin use: unspecified snf insulin use status UTI (urinary tract infection) N39.0 Hyperkalemia E87.5 Stage IV pressure ulcer of right heel L89.614 Septic shock A41.9; R65.21 Decubitus ulcer of sacral region, stage 4 L89.154 [place] infection B37.9 Solitary kidney Q60.0 (1) CAD (coronary artery disease) Associated angina: without angina Coronary Disease-Associated Artery/Lesion type: [place] artery [place] vs. transplanted heart: [place] heart Qualified Code(s): I25.10 - Atherosclerotic heart disease of [place] coronary artery without angina pectoris (2) Hypothyroid Hypothyroidism type: unspecified Qualified Code(s): E03.9 - Hypothyroidism, unspecified (3) Diabetes type 2, controlled Diabetes mellitus complication status: without complication Diabetes mellitus snf insulin use: unspecified assistant terminal manager insulin use status Qualified Code(s): E11.9 - Type 2 diabetes mellitus without complications
[2021-06-20] MEDS: CHECK SCOPOLAMINE PATCH PLACEMENT SCH ×2 (10:11→11:02)
--- NOTE | 2021-06-20 10:18 | Palliative Care Progress Note ---
Date of Service June 20, 2021 Assessment & Plan (1) Dyspnea: Plan: Discussed using opioid to help with dyspnea and also with cough. She and her daughter are agreeable to this. Discussed with RN (2) Difficulty clearing secretions: Plan: No improvement with scopolamine. Will stop and start routine glycopyrrolate. (3) Palliative care encounter: Plan: She is DNR with focus of care on comfort. Daughter, Anna, is at bedside. She is very supportive. They deny any other questions or concerns today. (4) Acute respiratory failure with hypoxia: (5) Mucus plugging of bronchi: (6) CAD (coronary artery disease): (7) Chronic incomplete quadriplegia: (8) Diabetes type 2, controlled: (9) Acute on chronic renal failure: Admission and Anticipated Discharge Date Admission Date: June 13, 2021 Subjective Ate some breakfast this morning. Drowsy but conversant. She continues to have moist cough which is bothering her. She also has some shortness of breath. Review of Systems Review of Systems: [place] Symptom Assessment Scale Pain 0/3 Dyspnea 2/3 Nausea 0/3 Anxiety 0/3 Fatigue 3/3 Drowsiness 1/3 Palliative Performance Score 30% Physical Exam Constitutional: + ill appearing ENMT: Mouth: + dry oral mucous membranes Respiratory: + uses accessory muscles Neurologic: quadriplegia, awake, not confused PG Care Time/CCT Total # of Minutes Spent Total Time Spent: 35 Total Time Spent with Patient: Total time spent is greater than 50% in coordination of care (as documented) at patient's floor/unit and/or counseling patient: symptom management, patient and family education and support Coding Level of Care Code 99484 Subseq Hosp Care Lvl 3 Diagnoses Dyspnea R06.00 Difficulty clearing secretions Palliative care encounter Z51.5 Acute respiratory failure with hypoxia J96.01 Mucus plugging of bronchi T17.500A CAD (coronary artery disease) I25.10 Coronary Disease-Associated Artery/Lesion type: [place] artery [place] vs. transplanted heart: [place] heart Associated angina: without angina Chronic incomplete quadriplegia G82.50 Diabetes type 2, controlled E11.9 Diabetes mellitus terminal [place] insulin use: unspecified intermediate insulin use status Diabetes mellitus complication status: without complication Acute on chronic renal failure N17.9; N18.9 Acute renal failure type: unspecified Chronic kidney disease stage: unspecified stage (1) CAD (coronary artery disease) Coronary Disease-Associated Artery/Lesion type: [place] artery [place] vs. [place] heart: [place] heart Associated angina: without angina Qualified Code(s): I25.10 - Atherosclerotic heart disease of [place] coronary artery without angina pectoris (2) Diabetes type 2, controlled Diabetes mellitus terminal [place] insulin use: unspecified intermediate insulin use status Diabetes mellitus complication status: without complication Qualified Code(s): E11.9 - Type 2 diabetes mellitus without complications (3) Acute on chronic renal failure Acute renal failure type: unspecified Chronic kidney disease stage: unspecified stage Qualified Code(s): N17.9 - Acute kidney failure, unspecified; N18.9 - Chronic kidney disease, unspecified
[2021-06-20] MEDS: COLLAGENASE OINT 30 GM TUBE TOP SCH (10:28)
[2021-06-20] MEDS: GLYCOPYRROLATE 0.2 MG/ML VIAL IV SCH ×4 (11:01→22:18)
--- NOTE | 2021-06-20 21:53 | Hospitalist Progress Note ---
Date of Service June 20, 2021 Assessment & Plan (1) Palliative care patient: Plan: cont palliative care pathway - NC O2, parada, pain meds, ativan, etc. 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 Would likely need tracheostomy moving forward and patient has stated she would not want such. Thus - comfort care. (3) Acute respiratory failure with hypoxia: Plan: 2nd to #1. Intubated 06/13, extubated 06/14. Re-intubated 06/14, extubated 06/16. Intubated early AM 06/17. Extubated to NC O2/ comfort care on 06/18. Cont NC O2. Suction is at bedside if needed for secretions. (4) Mucus plugging of bronchi: Plan: s/p multiple bronchs this admission. concern for recurrent plugging L today. (5) Osteomyelitis: Plan: Right heel. Abx stopped - transitioned to comfort care. (6) Acute on chronic renal failure: Plan: Acute renal failure / ALIX 2nd to ATN from sepsis. Creatinine was near 6 last check. Remains severely oliguric. She has solitary kidney. Patient with previous living will declining dialysis. Keep parada for comfort. (7) Quadriplegia: Plan: 2nd to previous cervical spine surgery. 09/2019. (8) Hypothyroid: (9) CAD (coronary artery disease): (10) Chronic osteomyelitis: (11) Diabetes type 2, controlled: (12) UTI (urinary tract infection): Plan: abx stopped -- transitioned to comfort care (13) Hyperkalemia: Plan: 2nd to #3 no Rx now on comfort (14) Stage IV pressure ulcer of right heel: Plan: provide repositioning, pain meds as needed (15) Septic shock: Plan: 2nd to #1 resolved (16) Decubitus ulcer of sacral region, stage 4: Plan: repositioning, pain meds (17) Maren infection: (18) Solitary kidney: Plan: h/o right nephrectomy - RCC? CT abd/pelvis in April with left-sided kidney only c/w her history Plan: gave support to family at bedside today continue comfort care pathway appreciate palliative care support from palliative team Admission and Anticipated Discharge Date Admission Date: June 13, 2021 Subjective patient largely sleeping during the visit briefly was awake -- said very little daughter and sig other at bedside she has needed prn meds for comfort minimal po intake Review of Systems Review of Systems: Unobtainable due to cognitive status and Unobtainable due to reduced consciousness Physical Exam Physical Exam: gen: NAD, but mild tachypnea in the 20s noted, sleeping significantly today mouth: MM dry neck: no JVD heart: RRR, s1 s2, no murmur lungs: markedly decreased BS on left in comparison to yesterday's exam; CTA on right abd: minimally distended, BS+, NT, no HSM ext: contractures of legs, trace edema, pulses 2+ b/l neuro: quadriplegia, no use of arms/legs psych: responds to name PG Care Time/CCT Total # of Minutes Spent Total Time Spent with Patient: Total time spent is greater than 50% in coordination of care (as documented) at patient's floor/unit and/or counseling patient: Coding Level of Care Code 51272 Subseq Hosp Care Lvl 1 Diagnoses Multifocal pneumonia J18.9 Acute respiratory failure with hypoxia J96.01 Mucus plugging of bronchi T17.500A Osteomyelitis M86.9 Acute on chronic renal failure N17.9; N18.9 Quadriplegia G82.50 Hypothyroid E03.9 Hypothyroidism type: unspecified CAD (coronary artery disease) I25.10 Associated angina: without angina Coronary Disease-Associated Artery/Lesion type: [place] artery [place] vs. transplanted heart: [place] heart Chronic osteomyelitis M86.60 Diabetes type 2, controlled E11.9 Diabetes mellitus complication status: without complication Diabetes mellitus [facility] insulin use: unspecified cook at school insulin use status UTI (urinary tract infection) N39.0 Hyperkalemia E87.5 Stage IV pressure ulcer of right heel L89.614 Septic shock A41.9; R65.21 Decubitus ulcer of sacral region, stage 4 L89.154 [place] infection B37.9 Solitary kidney Q60.0 Palliative care patient Z51.5 (1) CAD (coronary artery disease) Associated angina: without angina Coronary Disease-Associated Artery/Lesion type: [place] artery [place] vs. transplanted heart: [place] heart Qualified Code(s): I25.10 - Atherosclerotic heart disease of [place] coronary artery without angina pectoris (2) Hypothyroid Hypothyroidism type: unspecified Qualified Code(s): E03.9 - Hypothyroidism, unspecified (3) Diabetes type 2, controlled Diabetes mellitus complication status: without complication Diabetes mellitus cook at school insulin use: unspecified penitentiary insulin use status Qualified Code(s): E11.9 - Type 2 diabetes mellitus without complications
[2021-06-21] MEDS: GLYCOPYRROLATE 0.2 MG/ML VIAL IV SCH ×6 (02:28→21:59)
[2021-06-21] MEDS: CHECK SCOPOLAMINE PATCH PLACEMENT SCH (07:22)
[2021-06-21] MEDS: ACETAMINOPHEN 1,000 MG/100 ML VIAL IV PRN (08:23)
--- NOTE | 2021-06-21 09:24 | Palliative Care Progress Note ---
Date of Service June 21, 2021 Assessment & Plan (1) Dyspnea: Plan: Continue oxycodone prn which has been effective. Will avoid excessive sedation with prn dosing as she is able to interact with her family. IV hydromorphone is available for more rapid relief if she has acute respiratory distress. (2) Difficulty clearing secretions: Plan: Improved with glycopyrrolate. Continue routine dosing. (3) Acute respiratory failure with hypoxia: (4) Palliative care encounter: (5) CAD (coronary artery disease): (6) Chronic incomplete quadriplegia: (7) ALIX (acute kidney injury): (8) Sepsis: Admission and Anticipated Discharge Date Admission Date: June 13, 2021 Subjective Reports feeling a little better today. "I thought I was going to yesterday" She did get relief of dyspnea with oxycodone. She was sleepy but felt more relaxed and comfortable. Daughter reports that secretions seem better with glycopyrrolate. Review of Systems Review of Systems: [place] Symptom Assessment Scale Pain 0/3 Dyspnea 1/3 Anxiety 0/3 Fatigue 3/3 Drowsiness 1/3 Palliative Performance Score 30% Physical Exam Constitutional: + frail appearing; no acute distress Respiratory: normal respiratory effort; no labored breathing Neurologic: quadriplegia, awake, not confused PG Care Time/CCT Total # of Minutes Spent Total Time Spent: 26 Total Time Spent with Patient: Total time spent is greater than 50% in coordination of care (as documented) at patient's floor/unit and/or counseling patient:symptom management, family and patient education and support Coding Level of Care Code 55382 Subseq Hosp Care Lvl 2 Diagnoses Dyspnea R06.00 Difficulty clearing secretions Acute respiratory failure with hypoxia J96.01 Palliative care encounter Z51.5 CAD (coronary artery disease) I25.10 Coronary Disease-Associated Artery/Lesion type: [place] artery [place] vs. transplanted heart: [place] heart Associated angina: without angina Chronic incomplete quadriplegia G82.50 ALIX (acute kidney injury) N17.9 Sepsis A41.9 (1) CAD (coronary artery disease) Coronary Disease-Associated Artery/Lesion type: [place] artery [place] vs. transplanted heart: [place] heart Associated angina: without angina Qualified Code(s): I25.10 - Atherosclerotic heart disease of [place] coronary artery without angina pectoris
[2021-06-21] MEDS: COLLAGENASE OINT 30 GM TUBE TOP SCH ×2 (12:02→22:01)
[2021-06-21] MEDS ORDERED: ACETAMINOPHEN 325 MG TAB PO PRN (14:15)
--- NOTE | 2021-06-21 21:48 | Hospitalist Progress Note ---
Date of Service June 21, 2021 Assessment & Plan (1) Palliative care patient: Plan: cont palliative care pathway - NC O2, parada, pain meds, ativan, etc. cough is biggest symptom - would re-trial bronchodilators UOP remains very poor oral intake poor support given to family if patient remains stable with controlled symptoms - transfer back to [facility] with hospice?? 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 Would likely need tracheostomy moving forward and patient has stated she would not want such. Thus - comfort care. (3) Acute respiratory failure with hypoxia: Plan: 2nd to #1. Intubated 06/13, extubated 06/14. Re-intubated 06/14, extubated 06/16. Intubated early AM 06/17. Extubated to NC O2/ comfort care on 06/18. Cont NC O2. Suction is at bedside if needed for secretions. Bronchodilators and other meds as needed. (4) Mucus plugging of bronchi: Plan: s/p multiple bronchs this admission for such. Unable to expectorate sputum due to weak respiratory muscles from quad status. (5) Osteomyelitis: Plan: Right heel. Abx stopped - transitioned to comfort care. (6) Acute on chronic renal failure: Plan: Acute renal failure / ALIX 2nd to ATN from sepsis. Creatinine was near 6 last check. Remains severely oliguric. She has solitary kidney. Patient with previous living will declining dialysis. Keep parada for comfort. (7) Quadriplegia: Plan: 2nd to previous cervical spine surgery. 09/2019. (8) Hypothyroid: (9) CAD (coronary artery disease): (10) Chronic osteomyelitis: (11) Diabetes type 2, controlled: (12) UTI (urinary tract infection): Plan: abx employed earlier in the stay; now discontinued (13) Hyperkalemia: Plan: 2nd to #3 no Rx now on comfort (14) Stage IV pressure ulcer of right heel: Plan: provide repositioning, pain meds as needed (15) Septic shock: Plan: 2nd to #1 resolved (16) Decubitus ulcer of sacral region, stage 4: Plan: repositioning, pain meds (17) Maren infection: (18) Solitary kidney: Plan: h/o right nephrectomy - RCC? CT abd/pelvis in April with left-sided kidney only c/w her history Plan: gave support to family at bedside today continue comfort care pathway appreciate palliative care team input Admission and Anticipated Discharge Date Admission Date: June 13, 2021 Subjective pt awake, alert, answering questions during the visit boyfriend and pt's daughter at bedside continues with deep, bronchial cough unable to expectorate any sputum taking bites of solids; some sips of liquids family brought the pt her glasses - watching some TV intermittently no agitation Review of Systems Review of Systems: patient denies pain in any location however, apparently has intermittently c/o "ear pain" on both sides Physical Exam Physical Exam: gen: NAD, awake, alert mouth: MM severely dry neck: no JVD heart: RRR, s1 s2, no murmur lungs: severe bronchial cough, course BS b/l, decreased breath sounds left base abd: minimally distended, BS+, NT, no HSM ext: contractures of legs, trace edema, pulses 2+ b/l neuro: quadriplegia, no use of arms/legs psych: alert to person PG Care Time/CCT Total # of Minutes Spent Total Time Spent with Patient: Total time spent is greater than 50% in coordination of care (as documented) at patient's floor/unit and/or counseling patient: Coding Level of Care Code 85550 Subseq Hosp Care Lvl 1 Diagnoses Palliative care patient Z51.5 Multifocal pneumonia J18.9 Acute respiratory failure with hypoxia J96.01 Mucus plugging of bronchi T17.500A Osteomyelitis M86.9 Acute on chronic renal failure N17.9; N18.9 Quadriplegia G82.50 Hypothyroid E03.9 Hypothyroidism type: unspecified CAD (coronary artery disease) I25.10 Associated angina: without angina Coronary Disease-Associated Artery/Lesion type: [place] artery [place] vs. 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
[2021-06-21] MEDS: LORazepam 0.5 MG/1 ML VIAL IV PRN (22:00)
[2021-06-22] MEDS: GLYCOPYRROLATE 0.2 MG/ML VIAL IV SCH ×6 (02:26→22:47)
[2021-06-22] MEDS ORDERED: ALBUTEROL HFA 8 GM INHALER INH SCH (09:00)
[2021-06-22] MEDS: COLLAGENASE OINT 30 GM TUBE TOP SCH ×2 (10:03→22:48)
--- NOTE | 2021-06-22 20:36 | Hospitalist Progress Note ---
Date of Service June 22, 2021 Assessment & Plan (1) Palliative care patient: Plan: cont palliative care pathway - NC O2, parada, pain meds, ativan, suction, etc. UOP remains very poor oral intake poor more sleepy today support given to family if patient remains stable with controlled symptoms - transfer back to [facility] with hospice?? 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 Would likely need tracheostomy moving forward and patient has stated she would not want such. Thus - comfort care. (3) Acute respiratory failure with hypoxia: Plan: 2nd to #1. Intubated 06/13, extubated 06/14. Re-intubated 06/14, extubated 06/16. Intubated early AM 06/17. Extubated to NC O2/ comfort care on 06/18. Cont NC O2. Suction is at bedside if needed for secretions. Bronchodilators and other meds as previous. (4) Mucus plugging of bronchi: Plan: s/p multiple bronchs this admission for such. Unable to expectorate sputum due to weak respiratory muscles from quad status. (5) Osteomyelitis: Plan: Right heel. Abx stopped - transitioned to comfort care. (6) Acute on chronic renal failure: Plan: Acute renal failure / ALIX 2nd to ATN from sepsis. Creatinine was near 6 last check. Remains severely oliguric. She has solitary kidney. Patient with previous living will declining dialysis. Keep parada for comfort. (7) Quadriplegia: Plan: 2nd to previous cervical spine surgery. 09/2019. (8) Hypothyroid: (9) CAD (coronary artery disease): (10) Chronic osteomyelitis: (11) Diabetes type 2, controlled: (12) UTI (urinary tract infection): Plan: abx employed earlier in the stay; now discontinued (13) Hyperkalemia: Plan: 2nd to #3 no Rx now on comfort (14) Stage IV pressure ulcer of right heel: Plan: provide repositioning, pain meds as needed, dressings (15) Septic shock: Plan: 2nd to #1 resolved (16) Decubitus ulcer of sacral region, stage 4: Plan: repositioning, pain meds (17) Maren infection: (18) Solitary kidney: Plan: h/o right nephrectomy - RCC? CT abd/pelvis in April with left-sided kidney only c/w her history Plan: continue comfort care pathway appreciate palliative care team input Admission and Anticipated Discharge Date Admission Date: June 13, 2021 Subjective pt sleepy today during my visit daughter reports she has been less interactive & talkative today she continues with severe bronchial cough no other needs per daughter or significant other they feel she is overall comfortable Review of Systems Review of Systems: Unobtainable due to cognitive status and Unobtainable due to reduced consciousness Physical Exam Physical Exam: gen: NAD, sleepy today mouth: MM severely dry neck: no JVD heart: RRR, s1 s2, no murmur lungs: severe bronchial cough, course BS b/l, decreased breath sounds left abd: minimally distended, BS+, NT, no HSM ext: contractures of legs, trace edema, pulses 2+ b/l but her feet are cool today; hands also cool neuro: quadriplegia, no use of arms/legs psych: alert to person only Results & Data Results & Data ([facility]) Vital Signs (Past 12 Hours) Vital Signs Pulse Resp Pulse Ox 06/22/21 11:44 68 16 97 Laboratory Results 06/18/21 06/18/21 06/18/21 Range/Units 16:26 11:52 08:47 WBC (4.8-10.8) K/uL RBC (4.2-5.4) M/uL Hgb (12.0-16.0) g/dL POC Hgb (12.0-16.0) g/dl Hct (37-47) % POC Hct (37-47) % MCV (80-100) fL MCH (25-34) pg MCHC (32-36) g/dL RDW Std Deviation (36.4-46.3) fL RDW Coeff of Alicia (11.5-14.5) % Plt Count (130-400) K/uL MPV (7.4-10.4) fL Immature Gran % (Auto) % Neut % (Auto) % Lymph % (Auto) % [place] % (Auto) % Eos % (Auto) % Baso % (Auto) % Neut # (Auto) (1.4-6.5) K/uL Lymph # (Auto) (1.2-3.4) K/uL [place] # (Auto) (0.11-0.59) K/uL Eos # (Auto) (0-0.5) K/uL Baso # (Auto) (0-0.2) K/uL Immature Gran # (Auto) (0.00-0.02) K/uL Tear Drop Cells PT INR APTT PTT Ratio Sample Site POC pH (7.35-7.45) POC pCO2 (35-46) mmHg POC pO2 (80-95) mmHg POC HCO3 (19-24) nael/L POC Total CO2 (24-31) mmol/L POC Base Excess (-9-1.8) nael/L ABG pH (Temp Correct) (7.35-7.45) ABG pCO2 (Temp Corrct (35-46) mmHg POC ABG pO2 at Pt Temp POC ABG O2 Sat (90-95) % Ulices Test O2 Delivery Device POC O2 Rate Minute Ventilation POC FiO2 % Tidal Volume PEEP POC Sodium (135-144) mmol/L Sodium (136-145) mmol/L POC Potassium (3.3-5.0) mmol/L Potassium (3.5-5.1) mmol/L Chloride (98-107) mmol/L Carbon Dioxide (21-32) mmol/L Anion Gap (3-11) BUN (7-18) mg/dl Creatinine (0.6-1.2) mg/dl Est Cr Clr Drug Dosing ml/min Est GFR ( Amer) ml/min Est GFR (Non-Af Amer) ml/min BUN/Creatinine Ratio (10-20) Glucose (70-99) mg/dl POC Glucose 138 H 121 H 91 (70-99) mg/dl Calcium (8.5-10.1) mg/dl Phosphorus (2.5-4.9) mg/dl Magnesium (1.8-2.4) mg/dl Total Bilirubin (0.2-1) mg/dl Direct Bilirubin (0-0.2) mg/dl AST (15-37) U/L ALT (12-78) U/L Alkaline Phosphatase (45-117) U/L Total Protein (6.4-8.2) gm/dl Albumin (3.4-5.0) gm/dl Procalcitonin (0-0.5) ng/ml Random Vancomycin mcg/ml 09/06/18/21 06/18/21 Range/Units 05:33 04:44 04:44 WBC 11.94 H D (4.8-10.8) K/uL RBC 2.23 L (4.2-5.4) M/uL Hgb 7.4 L (12.0-16.0) g/dL POC Hgb (12.0-16.0) g/dl Hct 22.4 L (37-47) % POC Hct (37-47) % MCV 100.4 H (80-100) fL MCH 33.2 (25-34) pg MCHC 33.0 (32-36) g/dL RDW Std Deviation 52.3 H (36.4-46.3) fL RDW Coeff of Alicia 14.5 (11.5-14.5) % Plt Count 408 H (130-400) K/uL MPV 10.4 (7.4-10.4) fL Immature Gran % (Auto) 1.1 % Neut % (Auto) 78.3 % Lymph % (Auto) 11.9 % [place] % (Auto) 6.6 % Eos % (Auto) 1.8 % Baso % (Auto) 0.3 % Neut # (Auto) 9.36 H (1.4-6.5) K/uL Lymph # (Auto) 1.42 (1.2-3.4) K/uL [place] # (Auto) 0.79 H (0.11-0.59) K/uL Eos # (Auto) 0.21 (0-0.5) K/uL Baso # (Auto) 0.03 (0-0.2) K/uL Immature Gran # (Auto) 0.13 H (0.00-0.02) K/uL Tear Drop Cells 1+ PT INR APTT PTT Ratio Sample Site L Radial POC pH 7.46 H (7.35-7.45) POC pCO2 24 L (35-46) mmHg POC pO2 82 (80-95) mmHg POC HCO3 17 L (19-24) nael/L POC Total CO2 18 L (24-31) mmol/L POC Base Excess -7.0 (-9-1.8) nael/L ABG pH (Temp Correct) (7.35-7.45) ABG pCO2 (Temp Corrct (35-46) mmHg POC ABG pO2 at Pt Temp POC ABG O2 Sat 97.0 H (90-95) % Ulices Test Pass O2 Delivery Device Ventilator POC O2 Rate 24 Minute Ventilation 8.8 POC FiO2 30 % Tidal Volume 370 PEEP 5 POC Sodium (135-144) mmol/L Sodium (136-145) mmol/L POC Potassium (3.3-5.0) mmol/L Potassium (3.5-5.1) mmol/L Chloride (98-107) mmol/L Carbon Dioxide (21-32) mmol/L Anion Gap (3-11) BUN (7-18) mg/dl Creatinine (0.6-1.2) mg/dl Est Cr Clr Drug Dosing ml/min Est GFR ( Amer) ml/min Est GFR (Non-Af Amer) ml/min BUN/Creatinine Ratio (10-20) Glucose (70-99) mg/dl POC Glucose (70-99) mg/dl Calcium (8.5-10.1) mg/dl Phosphorus (2.5-4.9) mg/dl Magnesium (1.8-2.4) mg/dl Total Bilirubin (0.2-1) mg/dl Direct Bilirubin (0-0.2) mg/dl AST (15-37) U/L ALT (12-78) U/L Alkaline Phosphatase (45-117) U/L Total Protein (6.4-8.2) gm/dl Albumin (3.4-5.0) gm/dl Procalcitonin 5.94 H (0-0.5) ng/ml Random Vancomycin mcg/ml 06/18/21 06/18/21 06/18/21 Range/Units 04:44 04:44 00:34 WBC (4.8-10.8) K/uL RBC (4.2-5.4) M/uL Hgb (12.0-16.0) g/dL POC Hgb (12.0-16.0) g/dl Hct (37-47) % POC Hct (37-47) % MCV (80-100) fL MCH (25-34) pg MCHC (32-36) g/dL RDW Std Deviation (36.4-46.3) fL RDW Coeff of Alicia (11.5-14.5) % Plt Count (130-400) K/uL MPV (7.4-10.4) fL Immature Gran % (Auto) % Neut % (Auto) % Lymph % (Auto) % [place] % (Auto) % Eos % (Auto) % Baso % (Auto) % Neut # (Auto) (1.4-6.5) K/uL Lymph # (Auto) (1.2-3.4) K/uL [place] # (Auto) (0.11-0.59) K/uL Eos # (Auto) (0-0.5) K/uL Baso # (Auto) (0-0.2) K/uL Immature Gran # (Auto) (0.00-0.02) K/uL Tear Drop Cells PT INR APTT PTT Ratio Sample Site POC pH (7.35-7.45) POC pCO2 (35-46) mmHg POC pO2 (80-95) mmHg POC HCO3 (19-24) nael/L POC Total CO2 (24-31) mmol/L POC Base Excess (-9-1.8) nael/L ABG pH (Temp Correct) (7.35-7.45) ABG pCO2 (Temp Corrct (35-46) mmHg POC ABG pO2 at Pt Temp POC ABG O2 Sat (90-95) % Ulices Test O2 Delivery Device POC O2 Rate Minute Ventilation POC FiO2 % Tidal Volume PEEP POC Sodium (135-144) mmol/L Sodium 143 (136-145) mmol/L POC Potassium (3.3-5.0) mmol/L Potassium 3.8 (3.5-5.1) mmol/L Chloride 111 H (98-107) mmol/L Carbon Dioxide 17 L (21-32) mmol/L Anion Gap 15.0 H (3-11) BUN 103 H (7-18) mg/dl Creatinine 5.70 H* D (0.6-1.2) mg/dl Est Cr Clr Drug Dosing 7.8 ml/min Est GFR ( Amer) 7.8 ml/min Est GFR (Non-Af Amer) 6.8 ml/min BUN/Creatinine Ratio 18.1 (10-20) Glucose 75 (70-99) mg/dl POC Glucose 73 (70-99) mg/dl Calcium 7.6 L (8.5-10.1) mg/dl Phosphorus 4.2 D (2.5-4.9) mg/dl Magnesium 2.7 H (1.8-2.4) mg/dl Total Bilirubin 0.4 (0.2-1) mg/dl Direct Bilirubin < 0.1 (0-0.2) mg/dl AST 16 (15-37) U/L ALT 26 (12-78) U/L Alkaline Phosphatase 59 (45-117) U/L Total Protein 5.6 L (6.4-8.2) gm/dl Albumin 1.8 L (3.4-5.0) gm/dl Procalcitonin (0-0.5) ng/ml Random Vancomycin 23.7 mcg/ml 06/17/21 06/17/21 06/17/21 Range/Units 20:28 16:04 11:55 WBC (4.8-10.8) K/uL RBC (4.2-5.4) M/uL Hgb (12.0-16.0) g/dL POC Hgb (12.0-16.0) g/dl Hct (37-47) % POC Hct (37-47) % MCV (80-100) fL MCH (25-34) pg MCHC (32-36) g/dL RDW Std Deviation (36.4-46.3) fL RDW Coeff of Alicia (11.5-14.5) % Plt Count (130-400) K/uL MPV (7.4-10.4) fL Immature Gran % (Auto) % Neut % (Auto) % Lymph % (Auto) % [place] % (Auto) % Eos % (Auto) % Baso % (Auto) % Neut # (Auto) (1.4-6.5) K/uL Lymph # (Auto) (1.2-3.4) K/uL [place] # (Auto) (0.11-0.59) K/uL Eos # (Auto) (0-0.5) K/uL Baso # (Auto) (0-0.2) K/uL Immature Gran # (Auto) (0.00-0.02) K/uL Tear Drop Cells PT INR APTT PTT Ratio Sample Site POC pH (7.35-7.45) POC pCO2 (35-46) mmHg POC pO2 (80-95) mmHg POC HCO3 (19-24) nael/L POC Total CO2 (24-31) mmol/L POC Base Excess (-9-1.8) nael/L ABG pH (Temp Correct) (7.35-7.45) ABG pCO2 (Temp Corrct (35-46) mmHg POC ABG pO2 at Pt Temp POC ABG O2 Sat (90-95) % Ulices Test O2 Delivery Device POC O2 Rate Minute Ventilation POC FiO2 % Tidal Volume PEEP POC Sodium (135-144) mmol/L Sodium (136-145) mmol/L POC Potassium (3.3-5.0) mmol/L Potassium (3.5-5.1) mmol/L Chloride (98-107) mmol/L Carbon Dioxide (21-32) mmol/L Anion Gap (3-11) BUN (7-18) mg/dl Creatinine (0.6-1.2) mg/dl Est Cr Clr Drug Dosing ml/min Est GFR ( Amer) ml/min Est GFR (Non-Af Amer) ml/min BUN/Creatinine Ratio (10-20) Glucose (70-99) mg/dl POC Glucose 122 H 205 H 223 H (70-99) mg/dl Calcium (8.5-10.1) mg/dl Phosphorus (2.5-4.9) mg/dl Magnesium (1.8-2.4) mg/dl Total Bilirubin (0.2-1) mg/dl Direct Bilirubin (0-0.2) mg/dl AST (15-37) U/L ALT (12-78) U/L Alkaline Phosphatase (45-117) U/L Total Protein (6.4-8.2) gm/dl Albumin (3.4-5.0) gm/dl Procalcitonin (0-0.5) ng/ml Random Vancomycin mcg/ml 06/17/21 06/17/21 06/17/21 Range/Units 08:21 05:03 05:03 WBC 22.12 H D (4.8-10.8) K/uL RBC 2.74 L (4.2-5.4) M/uL Hgb 9.1 L (12.0-16.0) g/dL POC Hgb (12.0-16.0) g/dl Hct 28.3 L (37-47) % POC Hct (37-47) % MCV 103.3 H (80-100) fL MCH 33.2 (25-34) pg MCHC 32.2 (32-36) g/dL RDW Std Deviation 54.6 H (36.4-46.3) fL RDW Coeff of Alicia 14.7 H (11.5-14.5) % Plt Count 790 H D (130-400) K/uL MPV 10.5 H (7.4-10.4) fL Immature Gran % (Auto) 1.5 % Neut % (Auto) 83.9 % Lymph % (Auto) 4.7 % [place] % (Auto) 8.9 % Eos % (Auto) 0.8 % Baso % (Auto) 0.2 % Neut # (Auto) 18.58 H (1.4-6.5) K/uL Lymph # (Auto) 1.03 L (1.2-3.4) K/uL [place] # (Auto) 1.96 H (0.11-0.59) K/uL Eos # (Auto) 0.18 (0-0.5) K/uL Baso # (Auto) 0.04 (0-0.2) K/uL Immature Gran # (Auto) 0.33 H (0.00-0.02) K/uL Tear Drop Cells 1+ PT INR APTT PTT Ratio Sample Site POC pH (7.35-7.45) POC pCO2 (35-46) mmHg POC pO2 (80-95) mmHg POC HCO3 (19-24) nael/L POC Total CO2 (24-31) mmol/L POC Base Excess (-9-1.8) nael/L ABG pH (Temp Correct) (7.35-7.45) ABG pCO2 (Temp Corrct (35-46) mmHg POC ABG pO2 at Pt Temp POC ABG O2 Sat (90-95) % Ulices Test O2 Delivery Device POC O2 Rate Minute Ventilation POC FiO2 % Tidal Volume PEEP POC Sodium (135-144) mmol/L Sodium (136-145) mmol/L POC Potassium (3.3-5.0) mmol/L Potassium (3.5-5.1) mmol/L Chloride (98-107) mmol/L Carbon Dioxide (21-32) mmol/L Anion Gap (3-11) BUN (7-18) mg/dl Creatinine (0.6-1.2) mg/dl Est Cr Clr Drug Dosing ml/min Est GFR ( Amer) ml/min Est GFR (Non-Af Amer) ml/min BUN/Creatinine Ratio (10-20) Glucose (70-99) mg/dl POC Glucose 251 H (70-99) mg/dl Calcium (8.5-10.1) mg/dl Phosphorus (2.5-4.9) mg/dl Magnesium (1.8-2.4) mg/dl Total Bilirubin (0.2-1) mg/dl Direct Bilirubin (0-0.2) mg/dl AST (15-37) U/L ALT (12-78) U/L Alkaline Phosphatase (45-117) U/L Total Protein (6.4-8.2) gm/dl Albumin (3.4-5.0) gm/dl Procalcitonin (0-0.5) ng/ml Random Vancomycin 22.4 mcg/ml 06/17/21 06/17/21 06/17/21 Range/Units 05:03 03:03 00:26 WBC (4.8-10.8) K/uL RBC (4.2-5.4) M/uL Hgb (12.0-16.0) g/dL POC Hgb 8.8 L (12.0-16.0) g/dl Hct (37-47) % POC Hct 26 L (37-47) % MCV (80-100) fL MCH (25-34) pg MCHC (32-36) g/dL RDW Std Deviation (36.4-46.3) fL RDW Coeff of Alicia (11.5-14.5) % Plt Count (130-400) K/uL MPV (7.4-10.4) fL Immature Gran % (Auto) % Neut % (Auto) % Lymph % (Auto) % [place] % (Auto) % Eos % (Auto) % Baso % (Auto) % Neut # (Auto) (1.4-6.5) K/uL Lymph # (Auto) (1.2-3.4) K/uL [place] # (Auto) (0.11-0.59) K/uL Eos # (Auto) (0-0.5) K/uL Baso # (Auto) (0-0.2) K/uL Immature Gran # (Auto) (0.00-0.02) K/uL Tear Drop Cells PT INR APTT PTT Ratio Sample Site R Brachial POC pH 7.28 L (7.35-7.45) POC pCO2 45 (35-46) mmHg POC pO2 42 L (80-95) mmHg POC HCO3 21 (19-24) nael/L POC Total CO2 23 L (24-31) mmol/L POC Base Excess -6.0 (-9-1.8) nael/L ABG pH (Temp Correct) 7.283 L (7.35-7.45) ABG pCO2 (Temp Corrct 45 (35-46) mmHg POC ABG pO2 at Pt Temp 41 POC ABG O2 Sat 71.0 L (90-95) % Ulices Test Pass O2 Delivery Device Ventilator POC O2 Rate 24 Minute Ventilation POC FiO2 100 % Tidal Volume 370 PEEP 10 POC Sodium 142 (135-144) mmol/L Sodium 141 (136-145) mmol/L POC Potassium 4.2 (3.3-5.0) mmol/L Potassium 3.8 D (3.5-5.1) mmol/L Chloride 109 H (98-107) mmol/L Carbon Dioxide 18 L (21-32) mmol/L Anion Gap 14.0 H (3-11) BUN 95 H (7-18) mg/dl Creatinine 5.14 H* D (0.6-1.2) mg/dl Est Cr Clr Drug Dosing 8.7 ml/min Est GFR ( Amer) 8.9 ml/min Est GFR (Non-Af Amer) 7.7 ml/min BUN/Creatinine Ratio 18.5 (10-20) Glucose 230 H (70-99) mg/dl POC Glucose 168 H (70-99) mg/dl Calcium 8.1 L (8.5-10.1) mg/dl Phosphorus 5.3 H (2.5-4.9) mg/dl Magnesium 2.8 H (1.8-2.4) mg/dl Total Bilirubin (0.2-1) mg/dl Direct Bilirubin (0-0.2) mg/dl AST (15-37) U/L ALT (12-78) U/L Alkaline Phosphatase (45-117) U/L Total Protein (6.4-8.2) gm/dl Albumin (3.4-5.0) gm/dl Procalcitonin (0-0.5) ng/ml Random Vancomycin mcg/ml 06/16/21 06/16/21 06/16/21 Range/Units 20:38 16:50 15:57 WBC (4.8-10.8) K/uL RBC (4.2-5.4) M/uL Hgb (12.0-16.0) g/dL POC Hgb (12.0-16.0) g/dl Hct (37-47) % POC Hct (37-47) % MCV (80-100) fL MCH (25-34) pg MCHC (32-36) g/dL RDW Std Deviation (36.4-46.3) fL RDW Coeff of Alicia (11.5-14.5) % Plt Count (130-400) K/uL MPV (7.4-10.4) fL Immature Gran % (Auto) % Neut % (Auto) % Lymph % (Auto) % [place] % (Auto) % Eos % (Auto) % Baso % (Auto) % Neut # (Auto) (1.4-6.5) K/uL Lymph # (Auto) (1.2-3.4) K/uL [place] # (Auto) (0.11-0.59) K/uL Eos # (Auto) (0-0.5) K/uL Baso # (Auto) (0-0.2) K/uL Immature Gran # (Auto) (0.00-0.02) K/uL Tear Drop Cells PT INR APTT PTT Ratio Sample Site POC pH (7.35-7.45) POC pCO2 (35-46) mmHg POC pO2 (80-95) mmHg POC HCO3 (19-24) nael/L POC Total CO2 (24-31) mmol/L POC Base Excess (-9-1.8) nael/L ABG pH (Temp Correct) (7.35-7.45) ABG pCO2 (Temp Corrct (35-46) mmHg POC ABG pO2 at Pt Temp POC ABG O2 Sat (90-95) % Ulices Test O2 Delivery Device POC O2 Rate Minute Ventilation POC FiO2 % Tidal Volume PEEP POC Sodium (135-144) mmol/L Sodium 142 (136-145) mmol/L POC Potassium (3.3-5.0) mmol/L Potassium 4.7 (3.5-5.1) mmol/L Chloride 109 H (98-107) mmol/L Carbon Dioxide 22 (21-32) mmol/L Anion Gap 11.0 (3-11) BUN 91 H (7-18) mg/dl Creatinine 4.54 H* D (0.6-1.2) mg/dl Est Cr Clr Drug Dosing 9.8 ml/min Est GFR ( Amer) 10.3 ml/min Est GFR (Non-Af Amer) 8.9 ml/min BUN/Creatinine Ratio 20.1 H (10-20) Glucose 138 H (70-99) mg/dl POC Glucose 124 H 148 H (70-99) mg/dl Calcium 7.9 L (8.5-10.1) mg/dl Phosphorus (2.5-4.9) mg/dl Magnesium (1.8-2.4) mg/dl Total Bilirubin (0.2-1) mg/dl Direct Bilirubin (0-0.2) mg/dl AST (15-37) U/L ALT (12-78) U/L Alkaline Phosphatase (45-117) U/L Total Protein (6.4-8.2) gm/dl Albumin (3.4-5.0) gm/dl Procalcitonin (0-0.5) ng/ml Random Vancomycin mcg/ml 06/16/21 06/16/21 06/16/21 Range/Units 12:10 08:13 05:37 WBC (4.8-10.8) K/uL RBC (4.2-5.4) M/uL Hgb (12.0-16.0) g/dL POC Hgb (12.0-16.0) g/dl Hct (37-47) % POC Hct (37-47) % MCV (80-100) fL MCH (25-34) pg MCHC (32-36) g/dL RDW Std Deviation (36.4-46.3) fL RDW Coeff of Alicia (11.5-14.5) % Plt Count (130-400) K/uL MPV (7.4-10.4) fL Immature Gran % (Auto) % Neut % (Auto) % Lymph % (Auto) % [place] % (Auto) % Eos % (Auto) % Baso % (Auto) % Neut # (Auto) (1.4-6.5) K/uL Lymph # (Auto) (1.2-3.4) K/uL [place] # (Auto) (0.11-0.59) K/uL Eos # (Auto) (0-0.5) K/uL Baso # (Auto) (0-0.2) K/uL Immature Gran # (Auto) (0.00-0.02) K/uL Tear Drop Cells PT 11.2 INR 1.1 APTT 26.5 PTT Ratio 1.0 Sample Site POC pH (7.35-7.45) POC pCO2 (35-46) mmHg POC pO2 (80-95) mmHg POC HCO3 (19-24) nael/L POC Total CO2 (24-31) mmol/L POC Base Excess (-9-1.8) nael/L ABG pH (Temp Correct) (7.35-7.45) ABG pCO2 (Temp Corrct (35-46) mmHg POC ABG pO2 at Pt Temp POC ABG O2 Sat (90-95) % Ulices Test O2 Delivery Device POC O2 Rate Minute Ventilation POC FiO2 % Tidal Volume PEEP POC Sodium (135-144) mmol/L Sodium (136-145) mmol/L POC Potassium (3.3-5.0) mmol/L Potassium (3.5-5.1) mmol/L Chloride (98-107) mmol/L Carbon Dioxide (21-32) mmol/L Anion Gap (3-11) BUN (7-18) mg/dl Creatinine (0.6-1.2) mg/dl Est Cr Clr Drug Dosing ml/min Est GFR ( Amer) ml/min Est GFR (Non-Af Amer) ml/min BUN/Creatinine Ratio (10-20) Glucose (70-99) mg/dl POC Glucose 137 H 220 H (70-99) mg/dl Calcium (8.5-10.1) mg/dl Phosphorus (2.5-4.9) mg/dl Magnesium (1.8-2.4) mg/dl Total Bilirubin (0.2-1) mg/dl Direct Bilirubin (0-0.2) mg/dl AST (15-37) U/L ALT (12-78) U/L Alkaline Phosphatase (45-117) U/L Total Protein (6.4-8.2) gm/dl Albumin (3.4-5.0) gm/dl Procalcitonin (0-0.5) ng/ml Random Vancomycin mcg/ml 06/16/21 06/16/21 06/16/21 Range/Units 05:11 05:09 04:50 WBC 9.28 (4.8-10.8) K/uL RBC 2.46 L (4.2-5.4) M/uL Hgb 8.2 L (12.0-16.0) g/dL POC Hgb 7.8 L (12.0-16.0) g/dl Hct 26.2 L (37-47) % POC Hct 23 L (37-47) % MCV 106.5 H (80-100) fL MCH 33.3 (25-34) pg MCHC 31.3 L (32-36) g/dL RDW Std Deviation 56.6 H (36.4-46.3) fL RDW Coeff of Alicia 14.4 (11.5-14.5) % Plt Count 455 H (130-400) K/uL MPV 10.8 H (7.4-10.4) fL Immature Gran % (Auto) 1.0 % Neut % (Auto) 82.5 % Lymph % (Auto) 8.6 % [place] % (Auto) 6.6 % Eos % (Auto) 1.1 % Baso % (Auto) 0.2 % Neut # (Auto) 7.66 H (1.4-6.5) K/uL Lymph # (Auto) 0.80 L (1.2-3.4) K/uL [place] # (Auto) 0.61 H (0.11-0.59) K/uL Eos # (Auto) 0.10 (0-0.5) K/uL Baso # (Auto) 0.02 (0-0.2) K/uL Immature Gran # (Auto) 0.09 H (0.00-0.02) K/uL Tear Drop Cells PT INR APTT PTT Ratio Sample Site L Radial POC pH 7.38 (7.35-7.45) POC pCO2 32 L (35-46) mmHg POC pO2 80 (80-95) mmHg POC HCO3 19 (19-24) nael/L POC Total CO2 20 L (24-31) mmol/L POC Base Excess -6.0 (-9-1.8) nael/L ABG pH (Temp Correct) 7.374 (7.35-7.45) ABG pCO2 (Temp Corrct 33 L (35-46) mmHg POC ABG pO2 at Pt Temp 82 POC ABG O2 Sat 96.0 H (90-95) % Ulices Test Pass O2 Delivery Device Ventilator POC O2 Rate 14 Minute Ventilation 5.5 POC FiO2 30 % Tidal Volume 370 PEEP 5 POC Sodium 141 (135-144) mmol/L Sodium (136-145) mmol/L POC Potassium 4.9 (3.3-5.0) mmol/L Potassium (3.5-5.1) mmol/L Chloride (98-107) mmol/L Carbon Dioxide (21-32) mmol/L Anion Gap (3-11) BUN (7-18) mg/dl Creatinine (0.6-1.2) mg/dl Est Cr Clr Drug Dosing ml/min Est GFR ( Amer) ml/min Est GFR (Non-Af Amer) ml/min BUN/Creatinine Ratio (10-20) Glucose (70-99) mg/dl POC Glucose (70-99) mg/dl Calcium (8.5-10.1) mg/dl Phosphorus (2.5-4.9) mg/dl Magnesium (1.8-2.4) mg/dl Total Bilirubin (0.2-1) mg/dl Direct Bilirubin (0-0.2) mg/dl AST (15-37) U/L ALT (12-78) U/L Alkaline Phosphatase (45-117) U/L Total Protein (6.4-8.2) gm/dl Albumin (3.4-5.0) gm/dl Procalcitonin (0-0.5) ng/ml Random Vancomycin 24.2 mcg/ml 06/16/21 06/16/21 06/16/21 Range/Units 04:50 04:50 01:13 WBC (4.8-10.8) K/uL RBC (4.2-5.4) M/uL Hgb (12.0-16.0) g/dL POC Hgb (12.0-16.0) g/dl Hct (37-47) % POC Hct (37-47) % MCV (80-100) fL MCH (25-34) pg MCHC (32-36) g/dL RDW Std Deviation (36.4-46.3) fL RDW Coeff of Alicia (11.5-14.5) % Plt Count (130-400) K/uL MPV (7.4-10.4) fL Immature Gran % (Auto) % Neut % (Auto) % Lymph % (Auto) % [place] % (Auto) % Eos % (Auto) % Baso % (Auto) % Neut # (Auto) (1.4-6.5) K/uL Lymph # (Auto) (1.2-3.4) K/uL [place] # (Auto) (0.11-0.59) K/uL Eos # (Auto) (0-0.5) K/uL Baso # (Auto) (0-0.2) K/uL Immature Gran # (Auto) (0.00-0.02) K/uL Tear Drop Cells PT Cancelled INR Cancelled APTT Cancelled PTT Ratio Cancelled Sample Site POC pH (7.35-7.45) POC pCO2 (35-46) mmHg POC pO2 (80-95) mmHg POC HCO3 (19-24) nael/L POC Total CO2 (24-31) mmol/L POC Base Excess (-9-1.8) nael/L ABG pH (Temp Correct) (7.35-7.45) ABG pCO2 (Temp Corrct (35-46) mmHg POC ABG pO2 at Pt Temp POC ABG O2 Sat (90-95) % Ulices Test O2 Delivery Device POC O2 Rate Minute Ventilation POC FiO2 % Tidal Volume PEEP POC Sodium (135-144) mmol/L Sodium 140 (136-145) mmol/L POC Potassium (3.3-5.0) mmol/L Potassium 5.1 (3.5-5.1) mmol/L Chloride 112 H (98-107) mmol/L Carbon Dioxide 19 L (21-32) mmol/L Anion Gap 9.0 (3-11) BUN 82 H (7-18) mg/dl Creatinine 4.22 H D (0.6-1.2) mg/dl Est Cr Clr Drug Dosing 10.6 ml/min Est GFR ( Amer) 11.3 ml/min Est GFR (Non-Af Amer) 9.7 ml/min BUN/Creatinine Ratio 19.3 (10-20) Glucose 201 H (70-99) mg/dl POC Glucose 196 H (70-99) mg/dl Calcium 7.8 L (8.5-10.1) mg/dl Phosphorus 4.7 (2.5-4.9) mg/dl Magnesium 2.9 H (1.8-2.4) mg/dl Total Bilirubin (0.2-1) mg/dl Direct Bilirubin (0-0.2) mg/dl AST (15-37) U/L ALT (12-78) U/L Alkaline Phosphatase (45-117) U/L Total Protein (6.4-8.2) gm/dl Albumin (3.4-5.0) gm/dl Procalcitonin (0-0.5) ng/ml Random Vancomycin mcg/ml 06/15/21 Range/Units 21:02 WBC (4.8-10.8) K/uL RBC (4.2-5.4) M/uL Hgb (12.0-16.0) g/dL POC Hgb (12.0-16.0) g/dl Hct (37-47) % POC Hct (37-47) % MCV (80-100) fL MCH (25-34) pg MCHC (32-36) g/dL RDW Std Deviation (36.4-46.3) fL RDW Coeff of Alicia (11.5-14.5) % Plt Count (130-400) K/uL MPV (7.4-10.4) fL Immature Gran % (Auto) % Neut % (Auto) % Lymph % (Auto) % [place] % (Auto) % Eos % (Auto) % Baso % (Auto) % Neut # (Auto) (1.4-6.5) K/uL Lymph # (Auto) (1.2-3.4) K/uL [place] # (Auto) (0.11-0.59) K/uL Eos # (Auto) (0-0.5) K/uL Baso # (Auto) (0-0.2) K/uL Immature Gran # (Auto) (0.00-0.02) K/uL Tear Drop Cells PT INR APTT PTT Ratio Sample Site POC pH (7.35-7.45) POC pCO2 (35-46) mmHg POC pO2 (80-95) mmHg POC HCO3 (19-24) nael/L POC Total CO2 (24-31) mmol/L POC Base Excess (-9-1.8) nael/L ABG pH (Temp Correct) (7.35-7.45) ABG pCO2 (Temp Corrct (35-46) mmHg POC ABG pO2 at Pt Temp POC ABG O2 Sat (90-95) % Ulices Test O2 Delivery Device POC O2 Rate Minute Ventilation POC FiO2 % Tidal Volume PEEP POC Sodium (135-144) mmol/L Sodium (136-145) mmol/L POC Potassium (3.3-5.0) mmol/L Potassium (3.5-5.1) mmol/L Chloride (98-107) mmol/L Carbon Dioxide (21-32) mmol/L Anion Gap (3-11) BUN (7-18) mg/dl Creatinine (0.6-1.2) mg/dl Est Cr Clr Drug Dosing ml/min Est GFR ( Amer) ml/min Est GFR (Non-Af Amer) ml/min BUN/Creatinine Ratio (10-20) Glucose (70-99) mg/dl POC Glucose 173 H (70-99) mg/dl Calcium (8.5-10.1) mg/dl Phosphorus (2.5-4.9) mg/dl Magnesium (1.8-2.4) mg/dl Total Bilirubin (0.2-1) mg/dl Direct Bilirubin (0-0.2) mg/dl AST (15-37) U/L ALT (12-78) U/L Alkaline Phosphatase (45-117) U/L Total Protein (6.4-8.2) gm/dl Albumin (3.4-5.0) gm/dl Procalcitonin (0-0.5) ng/ml Random Vancomycin mcg/ml PG Care Time/CCT Total # of Minutes Spent Total Time Spent with Patient: Total time spent is greater than 50% in coordination of care (as documented) at patient's floor/unit and/or counseling patient: Coding Level of Care Code 24486 Subseq Hosp Care Lvl 1 Diagnoses Palliative care patient Z51.5 Multifocal pneumonia J18.9 Acute respiratory failure with hypoxia J96.01 Mucus plugging of bronchi T17.500A Osteomyelitis M86.9 Acute on chronic renal failure N17.9; N18.9 Quadriplegia G82.50 Hypothyroid E03.9 Hypothyroidism type: unspecified CAD (coronary artery disease) I25.10 Associated angina: without angina Coronary Disease-Associated Artery/Lesion type: [place] artery [place] vs. transplanted heart: [place] heart Chronic osteomyelitis M86.60 Diabetes type 2, controlled E11.9 Diabetes mellitus complication status: without complication Diabetes mellitus railroad inspector insulin use: unspecified correction insulin use status UTI (urinary tract infection) N39.0 Hyperkalemia E87.5 Stage IV pressure ulcer of right heel L89.614 Septic shock A41.9; R65.21 Decubitus ulcer of sacral region, stage 4 L89.154 Maren infection B37.9 Solitary kidney Q60.0 (1) CAD (coronary artery disease) Associated angina: without angina Coronary Disease-Associated Artery/Lesion type: [place] artery [place] vs. transplanted heart: [place] heart Qualified Code(s): I25.10 - Atherosclerotic heart disease of [place] coronary artery without angina pectoris (2) Hypothyroid Hypothyroidism type: unspecified Qualified Code(s): E03.9 - Hypothyroidism, unspecified (3) Diabetes type 2, controlled Diabetes mellitus complication status: without complication Diabetes mellitus railroad inspector insulin use: unspecified correction insulin use status Qualified Code(s): E11.9 - Type 2 diabetes mellitus without complications
[2021-06-22] MEDS ORDERED: BENZOCAINE 20% (ORAJEL) 11.9 GM TUBE MT PRN (23:16)
[2021-06-23] MEDS: GLYCOPYRROLATE 0.2 MG/ML VIAL IV SCH ×6 (02:29→21:21)
[2021-06-23] MEDS: COLLAGENASE OINT 30 GM TUBE TOP SCH (10:56)
[2021-06-23] MEDS: HEPARIN SOD 5,000 UNIT/0.5 ML VIAL SQ SCH (21:04)
[2021-06-23] MEDS: INSULIN ASPART 100 UNITS/ML 3 ML PEN SC SCH (21:05)
--- NOTE | 2021-06-23 23:57 | Hospitalist Progress Note ---
Date of Service June 23, 2021 Assessment & Plan (1) Palliative care patient: Plan: cont palliative care pathway - NC O2, parada, pain meds, ativan, suction, etc. she is further long on her comfort care journey today with increasing lethargy UOP remains very poor oral intake poor support again given to family if patient remains stable with controlled symptoms - transfer back to [facility] with hospice?? 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 Would likely need tracheostomy moving forward and patient has stated she would not want such. Thus - comfort care. (3) Acute respiratory failure with hypoxia: Plan: 2nd to #1. Intubated 06/13, extubated 06/14. Re-intubated 06/14, extubated 06/16. Intubated early AM 06/17. Extubated to NC O2/ comfort care on 06/18. Cont NC O2. Suction is at bedside if needed for secretions. Bronchodilators and other meds as previous. (4) Mucus plugging of bronchi: Plan: s/p multiple bronchs this admission for such. Unable to expectorate sputum due to weak respiratory muscles from quad status. (5) Osteomyelitis: Plan: Right heel. Abx stopped - transitioned to comfort care. (6) Acute on chronic renal failure: Plan: Acute renal failure / ALIX 2nd to ATN from sepsis. Creatinine was near 6 last check. Remains severely oliguric. She has solitary kidney. Patient with previous living will declining dialysis. Keep parada for comfort. (7) Quadriplegia: Plan: 2nd to previous cervical spine surgery. 09/2019. (8) Hypothyroid: (9) CAD (coronary artery disease): (10) Chronic osteomyelitis: (11) Diabetes type 2, controlled: (12) UTI (urinary tract infection): Plan: abx employed earlier in the stay; now discontinued (13) Hyperkalemia: Plan: 2nd to #3 no Rx now on comfort (14) Stage IV pressure ulcer of right heel: Plan: provide repositioning, pain meds as needed, dressings (15) Septic shock: Plan: 2nd to #1 resolved (16) Decubitus ulcer of sacral region, stage 4: Plan: repositioning, pain meds (17) Maren infection: (18) Solitary kidney: Plan: h/o right nephrectomy - RCC? CT abd/pelvis in April with left-sided kidney only c/w her history Plan: continue comfort care pathway appreciate palliative care team input and med adjustments Admission and Anticipated Discharge Date Admission Date: June 13, 2021 Subjective no events overnight pt's daughter and significant other, Jay Jay, report she slept all night last pm and has been sleepy for most of today as well is waking to take a few bites at meal-time but otherwise remains lethargic bronchial, deep cough remains daughter feels that she is comfortable Physical Exam Physical Exam: gen: NAD, coughing, very sleepy/lethargic, wakes for a few seconds then goes back to sleep mouth: MM severely dry neck: no JVD heart: RRR, s1 s2, no murmur lungs: severe bronchial cough, course BS b/l, breath sounds left worse today - very diminished on L abd: minimally distended, BS+, NT, no HSM ext: contractures of legs, trace edema, pulses 2+ b/l neuro: quadriplegia, no use of arms/legs psych: alert to person only, lethargic PG Care Time/CCT Total # of Minutes Spent Total Time Spent with Patient: Total time spent is greater than 50% in coordination of care (as documented) at patient's floor/unit and/or counseling patient: Coding Level of Care Code 31083 Subseq Hosp Care Lvl 1 Diagnoses Palliative care patient Z51.5 Multifocal pneumonia J18.9 Acute respiratory failure with hypoxia J96.01 Mucus plugging of bronchi T17.500A Osteomyelitis M86.9 Acute on chronic renal failure N17.9; N18.9 Quadriplegia G82.50 Hypothyroid E03.9 Hypothyroidism type: unspecified CAD (coronary artery disease) I25.10 Associated angina: without angina Coronary Disease-Associated Artery/Lesion type: [place] artery [place] vs. transplanted heart: [place] heart Chronic osteomyelitis M86.60 Diabetes type 2, controlled E11.9 Diabetes mellitus complication status: without complication Diabetes mellitus keno terminal operator insulin use: unspecified keno terminal operator insulin use status UTI (urinary tract infection) N39.0 Hyperkalemia E87.5 Stage IV pressure ulcer of right heel L89.614 Septic shock A41.9; R65.21 Decubitus ulcer of sacral region, stage 4 L89.154 Maren infection B37.9 Solitary kidney Q60.0 (1) CAD (coronary artery disease) Associated angina: without angina Coronary Disease-Associated Artery/Lesion type: [place] artery [place] vs. transplanted heart: [place] heart Qualified Code(s): I25.10 - Atherosclerotic heart disease of [place] coronary artery without angina pectoris (2) Hypothyroid Hypothyroidism type: unspecified Qualified Code(s): E03.9 - Hypothyroidism, unspecified (3) Diabetes type 2, controlled Diabetes mellitus complication status: without complication Diabetes mellitus keno terminal operator insulin use: unspecified keno terminal operator insulin use status Qualified Code(s): E11.9 - Type 2 diabetes mellitus without complications
[2021-06-24] MEDS: GLYCOPYRROLATE 0.2 MG/ML VIAL IV SCH ×6 (01:50→22:13)
[2021-06-24] MEDS: COLLAGENASE OINT 30 GM TUBE TOP SCH (07:55)
--- NOTE | 2021-06-24 13:40 | Hospitalist Progress Note ---
Date of Service June 24, 2021 Assessment & Plan (1) Palliative care patient: Plan: cont palliative care pathway - NC O2, parada, pain meds, ativan, suction, etc. plan is for FINANCIAL ACCOUNTING ANALYST daughter at bedside prognosis remains very poor oral intake poor support again given to family transfer back to [facility] with hospice?? vs keep at [facility] for ongoing palliation--> daughter seems opposed to D/C back to [facility]. 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 Would likely need tracheostomy moving forward and patient has stated she would not want such. Thus - comfort care. (3) Acute respiratory failure with hypoxia: Plan: 2nd to #1. O2 for comfort Intubated 06/13, extubated 06/14. Re-intubated 06/14, extubated 06/16. Intubated early AM 06/17. Extubated to NC O2/ comfort care on 06/18. Cont NC O2. Suction is at bedside if needed for secretions. Bronchodilators and other meds as previous. (4) Mucus plugging of bronchi: Plan: s/p multiple bronchs this admission for such. Unable to expectorate sputum due to weak respiratory muscles from quad status. (5) Osteomyelitis: Plan: Right heel. Abx stopped - transitioned to comfort care. (6) Acute on chronic renal failure: Plan: Acute renal failure / ALIX 2nd to ATN from sepsis. Creatinine was near 6 last check. Remains severely oliguric. She has solitary kidney. Patient with previous living will declining dialysis. Keep parada for comfort. (7) Quadriplegia: Plan: 2nd to previous cervical spine surgery. 09/2019. (8) Hypothyroid: (9) CAD (coronary artery disease): (10) Chronic osteomyelitis: (11) Diabetes type 2, controlled: Plan: - typically takes lantus. Her oral intake is poor. Lantus stopped. - patient on palliative care/FINANCIAL ACCOUNTING ANALYST (12) UTI (urinary tract infection): Plan: abx employed earlier in the stay; now discontinued (13) Hyperkalemia: Plan: 2nd to #3 no Rx now on comfort (14) Stage IV pressure ulcer of right heel: Plan: provide repositioning, pain meds as needed, dressings (15) Septic shock: Plan: 2nd to #1 resolved (16) Decubitus ulcer of sacral region, stage 4: Plan: repositioning, pain meds (17) Solitary kidney: Plan: h/o right nephrectomy - RCC? CT abd/pelvis in April with left-sided kidney only c/w her history Plan: continue comfort care pathway appreciate palliative care team input and med adjustments Admission and Anticipated Discharge Date Admission Date: June 13, 2021 Subjective Patient seen on daily rounds today. She is a 75-year-old white female who is now on comfort measures only/palliative care. Has had an extensive past month. Admitted 05/18 through 05/30 for altered mental status and sepsis. At that time, found to have osteomyelitis of her right heel and Achilles tendon. Underwent I&D and seen by ID with recommendations for IV antibiotic therapy X 6 weeks. Readmitted on 06/13 with respiratory failure requiring ventilatory support. Has been intubated and extubated multiple times during this hospitalization (due to failing extubation). In addition, she has had multiple bronchoscopies with lavage consistent with mucous plugging as the cause of left lung collapse. Most recently, reintubated on 06/17. Family now in from [place] and fatally extubated on 06/18 Patient is comfort measures only. Palliative on board Patient was suspected to pass very quickly; however, mentating appropriately. Little but some oral intake. She does have some urinary output (200 cc just this morning). Last creatinine was 5.7 on 06/18. Patient did not want dialysis. Daughter is at bedside and adamantly refuses discharge back to [facility] with expectations that patient will pass here Patient currently voices no complaints or concerns. Reports that she is relatively comfortable. Denies shortness of breath, pain or any other significant concerns. Nursing staff voices no complaints or concerns. Review of Systems Review of Systems: All systems reviewed and are unremarkable except as noted in HPI and below Denies fevers, chills, chest pain, shortness of breath, abdominal pain, nausea, vomiting, diarrhea, constipation, back pain, joint pain Physical Exam Physical Exam: General: Resting comfortably in her hospital bed. Appears chronically but not acutely ill. She is breathing comfortably on supplemental oxygen. Does not appear dyspneic or in any distress. NAD. HEENT: Head is AT/NC buccal mucosa is moist and pink Neck: No JVD. Negative hepatojugular reflex Cardiac: RRR but distant Lungs: Significantly diminished in the left lung without W/R/R Abdomen: Normoactive X4. Soft and nontender in all quadrants. Extremities: Somewhat decorticate positioning. Brace to right lower extremity. Slight skin mottling noted of the upper extremities Neuro: Exam limited but answering all questions appropriately Skin: No obvious skin lesions or rashes Psych: Appropriate affect pleasant and cooperative Results & Data Results & Data ([facility]) Vital Signs (Past 12 Hours) 144/68 - 68 - 16 - 37.3 - 97% 3L Laboratory Results 06/18/21 04:44 06/18/21 04:44 PG Care Time/CCT Total # of Minutes Spent Total Time Spent with Patient: Total time spent is greater than 50% in coordination of care (as documented) at patient's floor/unit and/or counseling patient: [place] [address] Subseq Hosp Care Lvl 1 Patient Type Established History Problem Focused Exam Problem Focused Medical Decision Making Straight Forward Diagnoses Palliative care patient Z51.5 Multifocal pneumonia J18.9 Acute respiratory failure with hypoxia J96.01 Mucus plugging of bronchi T17.500A Osteomyelitis M86.9 Acute on chronic renal failure N17.9; N18.9 Quadriplegia G82.50 Hypothyroid E03.9 Hypothyroidism type: unspecified CAD (coronary artery disease) I25.10 Coronary Disease-Associated Artery/Lesion type: [place] artery [place] vs. transplanted heart: [place] heart Associated angina: without angina Chronic osteomyelitis M86.60 Diabetes type 2, controlled E11.9 Diabetes mellitus mcc insulin use: unspecified enterprise application analyst insulin use status Diabetes mellitus complication status: without complication UTI (urinary tract infection) N39.0 Hyperkalemia E87.5 Stage IV pressure ulcer of right heel L89.614 Septic shock A41.9; R65.21 Decubitus ulcer of sacral region, stage 4 L89.154 Solitary kidney Q60.0 (1) Hypothyroid Hypothyroidism type: unspecified Qualified Code(s): E03.9 - Hypothyroidism, unspecified (2) CAD (coronary artery disease) Coronary Disease-Associated Artery/Lesion type: [place] artery [place] vs. transplanted heart: [place] heart Associated angina: without angina Qualified Code(s): I25.10 - Atherosclerotic heart disease of [place] coronary artery without angina pectoris (3) Diabetes type 2, controlled Diabetes mellitus enterprise application analyst insulin use: unspecified mcc insulin use status Diabetes mellitus complication status: without complication Qualified Code(s): E11.9 - Type 2 diabetes mellitus without complications
--- NOTE | 2021-06-24 13:45 | Palliative Care Progress Note ---
Date of Service June 24, 2021 Assessment & Plan (1) Palliative care encounter: Plan: Patient has been on LABORATORY TECH since 06/18 in the evening. It was anticipated that she would decline and rather quickly; however, she has been on comfort measures for the past 6 days and is not showing that she is actively dying. Discussed disposition with the patients daughter at the bedside and she would like us to look into inpatient hospice facilities. She also discussed transporting her to [place]; however, her window of opportunity for stability is low for that lengthy of a transport, unless she would like her transported on an air ambulance. Case discussed with PA and case management. (2) Dyspnea: Plan: IV hydromorphone is available for more rapid relief if she has acute respiratory distress. She has not utilized any since 06/23. She is on RA. (3) Difficulty clearing secretions: Plan: Improved with glycopyrrolate. Continue routine dosing, appears to be effective. (4) Acute respiratory failure with hypoxia: (5) CAD (coronary artery disease): (6) Chronic incomplete quadriplegia: (7) ALIX (acute kidney injury): (8) Sepsis: Admission and Anticipated Discharge Date Admission Date: June 13, 2021 Subjective Patient is sitting in her bed; awake, alert, and oriented and appears to be in no apparent distress. She continues to be on routine [place] but has not required any medications for pain or additional symptoms. Pt daughter, Anna, at her bedside. See A/P for further details. Review of Systems Review of Systems: [place] Symptom Assessment Scale Pain 0/3 Dyspnea 0/3 Anxiety 0/3 Fatigue 3/3 Drowsiness 1/3 Palliative Performance Score 30% Physical Exam Constitutional: + ill appearing and + frail appearing ENMT: Mouth: + dry oral mucous membranes Respiratory: normal respiratory effort, + respiratory distress and + uses accessory muscles; no labored breathing Cardiovascular: Rate/Rhythm: regular rate and regular rhythm Musculoskeletal: Extremities: + muscle atrophy Neurologic: awake Psychiatric: Orientation: alert and oriented x 3 PG Care Time/CCT Total # of Minutes Spent Total Time Spent with Patient: Total time spent is greater than 50% in coordination of care (as documented) at patient's floor/unit and/or counseling p atient: 35 minutes with > 50% of that time spent assessing the patient, discussing goals of care with family, addressing symptom management and collaborating with IDT. Coding Level of Care Code 34787 Subseq Hosp Care Lvl 3 Diagnoses Dyspnea R06.00 Difficulty clearing secretions Acute respiratory failure with hypoxia J96.01 Palliative care encounter Z51.5 CAD (coronary artery disease) I25.10 Associated angina: without angina Coronary Disease-Associated Artery/Lesion type: [place] artery [place] vs. transplanted heart: [place] heart Chronic incomplete quadriplegia G82.50 ALIX (acute kidney injury) N17.9 Sepsis A41.9 Time Spent (min) 35 (1) CAD (coronary artery disease) Associated angina: without angina Coronary Disease-Associated Artery/Lesion type: [place] artery [place] vs. transplanted heart: [place] heart Qualified Code(s): I25.10 - Atherosclerotic heart disease of [place] coronary artery without angina pectoris
[2021-06-25] MEDS: GLYCOPYRROLATE 0.2 MG/ML VIAL IV SCH ×6 (02:18→22:23)
[2021-06-25] MEDS: COLLAGENASE OINT 30 GM TUBE TOP SCH (10:06)
--- NOTE | 2021-06-25 11:28 | Hospitalist Progress Note ---
Date of Service June 25, 2021 Assessment & Plan (1) Palliative care patient: Plan: plan is for [employer]IT [employer]ED[employer] daughter at bedside- very upset and irate. prognosis remains very poor ; however, not actively declining at present. Tried to explain to patient (however was kicked out of the room by daughter) and did explain to daughter that patient no longer requires an acute hospitalization. Daughter upset but this and very angry/irate. I explained that it was anticipated that patient would pass rather quickly was fetally extubated but this has not been the case. Palliative remains of board and agrees with this notion. That being said, patient's daughter is unhappy with this verbiage and my "lack of compassion" again, as stated above, I apologized and stated that "I understand that this must be extremely difficult". Again, daughter very angry and irate over all of this. oral intake poor but patient is eating/drinking Patient is A&O. She is not uremic or oligouric support again given to family disposition remains uncear. I can not anticipate how long patient will survive. Her prognosis is POOR but she is not in the active stages of passes/ no active decline. I has reached out to case mgmt who has referrals out to multiple SNF as daughter refuses to have patient go back to [facility] (even with hospice) as she was unhappy with the care provided there. 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 Would likely need tracheostomy moving forward and patient has stated she would not want such. Patient remains comfort care. (3) Acute respiratory failure with hypoxia: Plan: 2nd to #2. O2 for comfort Intubated 06/13, extubated 06/14. Re-intubated 06/14, extubated 06/16. Intubated early AM 06/17. Extubated to NC O2/ comfort care on 06/18. rather stable at this time Cont NC O2. Suction is at bedside if needed for secretions. Bronchodilators and other meds as previous. (4) Mucus plugging of bronchi: Plan: s/p multiple bronchs this admission for such (with lavage) Unable to expectorate sputum due to weak respiratory muscles from quad status. (5) Osteomyelitis: Plan: Right heel. Abx stopped - transitioned to comfort care. (6) Acute on chronic renal failure: Plan: Acute renal failure / ALIX 2nd to ATN from sepsis. Creatinine was near 6 last check (5.70 on 06/18) no longer oligouric She has solitary kidney. Patient with previous living will declining dialysis. Keep [place] for comfort. (7) Quadriplegia: Plan: 2nd to previous cervical spine surgery. 09/2019. 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 BB and ASA stopped as patient [employer]ED[employer] (10) Chronic osteomyelitis: Plan: - see above (11) Diabetes type 2, controlled: Plan: - typically takes lantus. Her oral intake is poor. Lantus stopped. - patient on palliative care/[employer] (12) UTI (urinary tract infection): Plan: abx employed earlier in the stay; now discontinued d/t [employer] (13) Hyperkalemia: Plan: 2nd to #3 no Rx now on comfort no FU labs (14) Stage IV pressure ulcer of right heel: Plan: provide repositioning, pain meds as needed, dressings (15) Septic shock: Plan: 2nd to #2 resolved (16) Decubitus ulcer of sacral region, stage 4: Plan: repositioning, pain meds (17) Solitary kidney: Plan: h/o right nephrectomy - RCC? CT abd/pelvis in April with left-sided kidney only c/w her history Plan: [employer]. Palliative on board Dispo: SNF with hospice unless there is an active decline (which patient has been stable/ actually subtle improvements) over the past 7 days) Admission and Anticipated Discharge Date Admission Date: June 13, 2021 Supervising Physician Co-Signing Physician Notes I supervised Alexa Mohan PA-C on the care of this patient. I interviewed and examined the patient independently of her. The plan is as written in her note except for any following changes/exceptions: None Comfortable today on my exam. Denies pain, nausea, vomiting, shortness of breath. Falls asleep quickly. Discussed with daughter that we will follow her for the next few days as placement is arranged. If she appears that she will pass quickly, could consider staying here, but if clinically stable, will work for hospice at SNF with visiting priveleges. Subjective attempted to see patient today on daily rounds. Since seen last, patient has remained rather stable. Awake and alert. Conversant with staff and daughter. Palliative on board. Patient was terminally extubated on 06/18 but has done better than anticipated. It would not suspected that she would last the night (as she had failed extubated twice prior- 06/14 and 06/16). After the second intubated was when code status was changed (as daughter- whom lives in [place]) had found a copy of the patient's living willing denoting no intubation of CRP; however, she requesting that patient be REintubated in the event that it was needed until she was able to make her way from [place] in order to see her one last time). Patient required reintubation on 06/17. Daughter arrived on 06/18 and patient was terminally extubated. Palliative was consulted and has been on board. Patient is [employer]. Patient has been hemodynamically stable requiring only 2-3L NC to keep her pulse ox in the mid- high 90's. She has not had any complaints of pain, SOB. She is eating and drinking small amounts and continues to produce urine. No episodes of apnea. Again, it was thought that patient would decline and pass rather quickly; however, this has not been the case. She has remained fairly stable since 06/18 without active decline. Disposition was discussed briefly with patient and her daughter yesterday (about discharged back to SNF WITH HOSPICE services). Although patient not actively declining, her prognosis remains rather poor at best. Myself and palliative have been in discussion with patient and daughter. Patient is aware. Daughter is aware but irate. She has been refusing D/C back to [facility] and would prefer patient stay in our facility. I initially attempted to discuss things with patient (and her daughter at beside today); however, didn't get very far as the daughter quickly became irate and asked that "this conversation be taken outside". She did not appreciate that "that I was addressing any of this information with her mother" (the patient). Daughter feels as if "I am not being compassionate regarding her mother". She understands that she doesn't need to be in a hospital acutely but "feels as if we are just kicking her mother out so that we can have her bed". I again explained that I am very sorry regarding her mother's condition and that this must be hard and I wished that there was more that I could do and that I would love to keep her in the hospital to pass; however, the unfortunate reality is that her mother is not actively declining and has been rather stable. With this being said, she no longer requires an acute hospital stay but her prognosis is still poor. I also explained that I apologize for trying to explain this to the patient but that I find it important to ensure that the patient understands the current situation (especially knowing that she has been intubated/extubated and sedated during this hospitalization). Daughter again was irate as asked that I leave. I was then notified by case mgmt that patient's daughter no longer wishes that I provide the care for her mother. Review of Systems Review of Systems: Was able to ask patient is she was having any pain or respiratory issues; however, I was kicked out of the room by the daughter prior to getting any more in depth with history. Physical Exam Physical Exam: No as kicked out of the room by the daughter prior to doing the exam She was resting comfortably in her hospital bed. Awake and alert. NAD. PG Care Time/CCT Total # of Minutes Spent Total Time Spent with Patient: Total time spent is greater than 50% in coordination of care (as documented) at patient's floor/unit and/or counseling patient: Critical Care Time 60 min including attempted time spent with patient, time spent with daughter (which both of these were very limited) but also time talking with alma leigh, Dr. Mcdonald and palliative care. [place] [address] Subseq Hosp Care Lvl 2 Patient Type Established Medical Decision Making Low Complexity Diagnoses Palliative care patient Z51.5 Multifocal pneumonia J18.9 Acute respiratory failure with hypoxia J96.01 Mucus plugging of bronchi T17.500A Osteomyelitis M86.9 Acute on chronic renal failure N17.9; N18.9 Quadriplegia G82.50 Hypothyroid E03.9 Hypothyroidism type: unspecified CAD (coronary artery disease) I25.10 Associated angina: without angina Coronary Disease-Associated Artery/Lesion type: [place] artery [place] vs. transplanted heart: [place] heart Chronic osteomyelitis M86.60 Diabetes type 2, controlled E11.9 Diabetes mellitus complication status: without complication Diabetes mellitus oil heaterman insulin use: unspecified oil heaterman insulin use status UTI (urinary tract infection) N39.0 Hyperkalemia E87.5 Stage IV pressure ulcer of right heel L89.614 Septic shock A41.9; R65.21 Decubitus ulcer of sacral region, stage 4 L89.154 Solitary kidney Q60.0 (1) CAD (coronary artery disease) Associated angina: without angina Coronary Disease-Associated Artery/Lesion type: [place] artery [place] vs. transplanted heart: [place] heart Qualified Code(s): I25.10 - Atherosclerotic heart disease of [place] coronary artery without angina pectoris (2) Hypothyroid Hypothyroidism type: unspecified Qualified Code(s): E03.9 - Hypothyroidism, unspecified (3) Diabetes type 2, controlled Diabetes mellitus complication status: without complication Diabetes mellitus assisted insulin use: unspecified oil heaterman insulin use status Qualified Code(s): E11.9 - Type 2 diabetes mellitus without complications
[2021-06-26] MEDS: GLYCOPYRROLATE 0.2 MG/ML VIAL IV SCH ×6 (02:31→22:46)
[2021-06-26] MEDS: COLLAGENASE OINT 30 GM TUBE TOP SCH (09:29)
--- NOTE | 2021-06-26 16:43 | Hospitalist Progress Note ---
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 At this time, she is hemodynamically stable. PO intake is low, but appears to be staying hydrated with ~300 mL UOP per day. - Continue to treat pain, anxiety, secretions as needed (2) Multifocal pneumonia: Plan: - Patient remains comfort care. (3) Acute respiratory failure with hypoxia: Plan: 2nd to #2. Intubated 06/13, extubated 06/14. Re-intubated 06/14, extubated 06/16. Intubated early AM 06/17. Extubated to NC O2/ comfort care on 06/18. - O2 for comfort. Presently needs 3L NC. (4) Mucus plugging of bronchi: Plan: S/p multiple bronchs this admission for such (with lavage). Unable to expectorate sputum due to weak respiratory muscles from quad status. (5) Osteomyelitis: Plan: Right heel. Abx stopped - transitioned to comfort care. (6) Acute on chronic renal failure: Plan: Acute renal failure / ALIX 2nd to ATN from sepsis. -> Creatinine was near 6 last check (5.70 on 06/18). She has solitary kidney. Patient with previous living will declining dialysis. - Keep [place] for comfort. (7) Quadriplegia: Plan: 2nd to previous cervical spine surgery in 09/2019. 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 (9) CAD (coronary artery disease): Plan: Statin, beta-regine, and ASA stopped as patient [employer]GER [employer]. (10) Chronic osteomyelitis: Plan: - see above (11) Diabetes type 2, controlled: Plan: - typically takes lantus. Her oral intake is poor. Lantus stopped. - patient on palliative care/MA[employer]GER [employer]OL (12) UTI (urinary tract infection): Plan: Abx employed earlier in the stay; now discontinued d/t [employer]GER [employer]. (13) Hyperkalemia: Plan: 2nd to #3 (14) Stage IV pressure ulcer of right heel: Plan: Provide repositioning, pain meds as needed, dressings. - Presently not much pain. (15) Septic shock: Plan: 2nd to #2 resolved (16) Decubitus ulcer of sacral region, stage 4: Plan: repositioning, pain meds (17) Solitary kidney: Plan: h/o right nephrectomy - RCC? CT abd/pelvis in April with left-sided kidney only c/w her history Admission and Anticipated Discharge Date Admission Date: June 13, 2021 Subjective Seen today with daughter and boyfriend in the room. She denies any pain. Denies shortness of breath. Reports no fevers/chills, chest pain, shortness of breath, abdominal pain, nausea, or vomiting. Physical Exam Constitutional: + ill appearing and + frail appearing Eyes: EOM intact bilaterally; no conjunctival abnormality ENMT: external ear and nose normal, oropharynx normal Neck: trachea midline, no thyromegaly normal visual inspection Respiratory: normal respiratory effort, lungs clear to auscultation no respiratory distress Cardiovascular: RRR, no murmur, no edema Gastrointestinal (Abdomen): Inspection/Auscultation: abdomen normal to inspection; abdomen not distended Skin: no rashes, warm and dry Neurologic: awake (Tired) Psychiatric: Orientation: alert, oriented to person and cooperative PG Care Time/CCT Total # of Minutes Spent Total Time Spent with Patient: Total time spent is greater than 50% in coordination of care (as documented) at patient's floor/unit and/or counseling patient: Coding Level of Care Code 08335 Subseq Hosp Care Lvl 2 Diagnoses Palliative care patient Z51.5 Multifocal pneumonia J18.9 Acute respiratory failure with hypoxia J96.01 Mucus plugging of bronchi T17.500A Osteomyelitis M86.9 Acute on chronic renal failure N17.9; N18.9 Quadriplegia G82.50 Hypothyroid E03.9 Hypothyroidism type: unspecified CAD (coronary artery disease) I25.10 Coronary Disease-Associated Artery/Lesion type: [place] artery [place] vs. transplanted heart: [place] heart Associated angina: without angina Chronic osteomyelitis M86.60 Diabetes type 2, controlled E11.9 Diabetes mellitus assisted insulin use: unspecified remote computer terminal operator insulin use status Diabetes mellitus complication status: without complication UTI (urinary tract infection) N39.0 Hyperkalemia E87.5 Stage IV pressure ulcer of right heel L89.614 Septic shock A41.9; R65.21 Decubitus ulcer of sacral region, stage 4 L89.154 Solitary kidney Q60.0 (1) Hypothyroid Hypothyroidism type: unspecified Qualified Code(s): E03.9 - Hypothyroidism, unspecified (2) CAD (coronary artery disease) Coronary Disease-Associated Artery/Lesion type: [place] artery [place] vs. transplanted heart: [place] heart Associated angina: without angina Qualified Code(s): I25.10 - Atherosclerotic heart disease of [place] coronary artery without angina pectoris (3) Diabetes type 2, controlled Diabetes mellitus remote computer terminal operator insulin use: unspecified assisted insulin use status Diabetes mellitus complication status: without complication Qualified Code(s): E11.9 - Type 2 diabetes mellitus without complications
[2021-06-27] MEDS: GLYCOPYRROLATE 0.2 MG/ML VIAL IV SCH ×6 (01:45→23:17)
[2021-06-27] MEDS: COLLAGENASE OINT 30 GM TUBE TOP SCH (10:37)
--- NOTE | 2021-06-27 15:25 | Hospitalist Progress Note ---
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 At this time, she is hemodynamically stable. PO intake is low, but appears to be staying hydrated with ~300 mL UOP per day. - Continue to treat pain, anxiety, secretions as needed Discussed with daughter the signs that her mother is reaching close to passing: * Lethargic/asleep for greater periods of time or not waking up at all * Decreasing respiration rate * Loss of urine output If we see any of these signs, her mother's passing may be more imminent. Presently she wakes up, talks some (very limited though), and is drinking enough to maintain her UOP at ~300 mL/day. HR and BP remain stable. Discussed that presently we have no options for placement, but that if her mother remains stable in light of the above, she would need to get placed for hospice next we ek. (2) Multifocal pneumonia: Plan: - Patient remains comfort care. (3) Acute respiratory failure with hypoxia: Plan: 2nd to #2. Intubated 06/13, extubated 06/14. Re-intubated 06/14, extubated 06/16. Intubated early AM 06/17. Extubated to NC O2/ comfort care on 06/18. - O2 for comfort. Presently needs 3L NC. (4) Mucus plugging of bronchi: Plan: S/p multiple bronchs this admission for such (with lavage). Unable to expectorate sputum due to weak respiratory muscles from quad status. (5) Osteomyelitis: Plan: Right heel. Abx stopped - transitioned to comfort care. (6) Acute on chronic renal failure: Plan: Acute renal failure / ALIX 2nd to ATN from sepsis. -> Creatinine was near 6 last check (5.70 on 06/18). She has solitary kidney. Patient with previous living will declining dialysis. - Keep [place] for comfort. (7) Quadriplegia: Plan: 2nd to previous cervical spine surgery in 09/2019. 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 (10) Chronic osteomyelitis: Plan: - see above (11) Diabetes type 2, controlled: Plan: - typically takes lantus. Her oral intake is poor. Lantus stopped. 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 (13) Hyperkalemia: Plan: 2nd to #3 (14) Stage IV pressure ulcer of right heel: Plan: Provide repositioning, pain meds as needed, dressings. - Presently not much pain. (15) Septic shock: Plan: 2nd to #2 resolved (16) Decubitus ulcer of sacral region, stage 4: Plan: repositioning, pain meds (17) Solitary kidney: Plan: h/o right nephrectomy - RCC? CT abd/pelvis in April with left-sided kidney only c/w her history Admission and Anticipated Discharge Date Admission Date: June 13, 2021 Subjective Seen today with daughter and boyfriend in the room. She denies any pain. Denies shortness of breath. Reports no fevers/chills, chest pain, shortness of breath, abdominal pain, nausea, or vomiting. Physical Exam Constitutional: + ill appearing and + frail appearing Eyes: EOM intact bilaterally; no conjunctival abnormality ENMT: external ear and nose normal, oropharynx normal Neck: trachea midline, no thyromegaly normal visual inspection Respiratory: normal respiratory effort, lungs clear to auscultation no respiratory distress Cardiovascular: RRR, no murmur, no edema Gastrointestinal (Abdomen): Inspection/Auscultation: abdomen normal to i nspection; abdomen not distended Skin: no rashes, warm and dry Neurologic: awake Psychiatric: Orientation: oriented to person and cooperative Speech: + abnormal rate/rhythm/volume of speech (Slow, minimal) PG Care Time/CCT Total # of Minutes Spent Total Time Spent with Patient: Total time spent is greater than 50% in coordination of care (as documented) at patient's floor/unit and/or counseling patient: Coding Level of Care Code 04163 Subseq Hosp Care Lvl 2 Diagnoses Palliative care patient Z51.5 Multifocal pneumonia J18.9 Acute respiratory failure with hypoxia J96.01 Mucus plugging of bronchi T17.500A Osteomyelitis M86.9 Acute on chronic renal failure N17.9; N18.9 Quadriplegia G82.50 Hypothyroid E03.9 Hypothyroidism type: unspecified CAD (coronary artery disease) I25.10 Coronary Disease-Associated Artery/Lesion type: [place] artery [place] vs. transplanted heart: [place] heart Associated angina: without angina Chronic osteomyelitis M86.60 Diabetes type 2, controlled E11.9 Diabetes mellitus termination clerk insulin use: unspecified nursing home insulin use status Diabetes mellitus complication status: without complication UTI (urinary tract infection) N39.0 Hyperkalemia E87.5 Stage IV pressure ulcer of right heel L89.614 Septic shock A41.9; R65.21 Decubitus ulcer of sacral region, stage 4 L89.154 Solitary kidney Q60.0 (1) Hypothyroid Hypothyroidism type: unspecified Qualified Code(s): E03.9 - Hypothyroidism, unspecified (2) CAD (coronary artery disease) Coronary Disease-Associated Artery/Lesion type: [place] artery [place] vs. transplanted heart: [place] heart Associated angina: without angina Qualified Code(s): I25.10 - Atherosclerotic heart disease of [place] coronary artery without angina pectoris (3) Diabetes type 2, controlled Diabetes mellitus termination clerk insulin use: unspecified nursing home insulin use status Diabetes mellitus complication status: without complication Qualified Code(s): E11.9 - Type 2 diabetes mellitus without complications
[2021-06-28] MEDS: GLYCOPYRROLATE 0.2 MG/ML VIAL IV SCH ×5 (03:12→20:44)
[2021-06-28] MEDS: COLLAGENASE OINT 30 GM TUBE TOP SCH (11:05)
--- NOTE | 2021-06-28 17:24 | Hospitalist Progress Note ---
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 At this time, she is hemodynamically stable. PO intake is low, but appears to be staying hydrated with ~300 mL UOP per day. - Continue to treat pain, anxiety, secretions as needed Discussed with daughter the signs that her mother is reaching close to passing: * Lethargic/asleep for greater periods of time or not waking up at all * Decreasing respiration rate * Loss of urine output If we see any of these signs, her mother's passing may be more imminent. Today, she is more lethargic and spending more time sleeping. PO intake is lower. Per daughter, respirations are slower and she is having occasional apneic episodes (though I did not witness one). UOP remains stable for now. (2) Multifocal pneumonia: Plan: - Patient remains comfort care. (3) Acute respiratory failure with hypoxia: Plan: 2nd to #2. Intubated 06/13, extubated 06/14. Re-intubated 06/14, extubated 06/16. Intubated early AM 06/17. Extubated to NC O2/ comfort care on 06/18. - O2 for comfort. Presently needs 3L NC. (4) Mucus plugging of bronchi: Plan: S/p multiple bronchs this admission for such (with lavage). Unable to expectorate sputum due to weak respiratory muscles from quad status. (5) Osteomyelitis: Plan: Right heel. Abx stopped - transitioned to comfort care. (6) Acute on chronic renal failure: Plan: Acute renal failure / ALIX 2nd to ATN from sepsis. -> Creatinine was near 6 last check (5.70 on 06/18). She has solitary kidney. Patient with previous living will declining dialysis. - Keep [place] for comfort. (7) Quadriplegia: Plan: 2nd to previous cervical spine surgery in 09/2019. 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 (10) Chronic osteomyelitis: Plan: - see above (11) Diabetes type 2, controlled: Plan: - typically takes lantus. Her oral intake is poor. Lantus stopped. - patient on palliative care/CNC SUPERVISOR (12) UTI (urinary tract infection): Plan: Abx employed earlier in the stay; now discontinued d/t CNC SUPERVISOR. (13) Hyperkalemia: Plan: 2nd to #3 (14) Stage IV pressure ulcer of right heel: Plan: Provide repositioning, pain meds as needed, dressings. - Presently not much pain. (15) Septic shock: Plan: 2nd to #2 resolved (16) Decubitus ulcer of sacral region, stage 4: Plan: repositioning, pain meds (17) Solitary kidney: Plan: h/o right nephrectomy - RCC? CT abd/pelvis in April with left-sided kidney only c/w her history Admission and Anticipated Discharge Date Admission Date: June 13, 2021 Subjective Sleeping more. More tired. Lower appetite. Denies pain. Physical Exam Constitutional: + ill appearing, + frail appearing and + lethargic Eyes: EOM intact bilaterally; no conjunctival abnormality ENMT: external ear and nose normal, oropharynx normal Neck: trachea midline, no thyromegaly normal visual inspection Respiratory: normal respiratory effort, lungs clear to auscultation no respiratory distress Cardiovascular: RRR, no murmur, no edema Gastrointestinal (Abdomen): Inspection/Auscultation: abdomen normal to inspection; abdomen not distended Skin: no rashes, warm and dry Neurologic: awake Psychiatric: Orientation: oriented to person and cooperative Speech: + abnormal rate/rhythm/volume of speech (Slow, minimal) PG Care Time/CCT Total # of Minutes Spent Total Time Spent with Patient: Total time spent is greater than 50% in coordination of care (as documented) at patient's floor/unit and/or counseling patient: Coding Level of Care Code 62348 Subseq Hosp Care Lvl 2 Diagnoses Palliative care patient Z51.5 Multifocal pneumonia J18.9 Acute respiratory failure with hypoxia J96.01 Mucus plugging of bronchi T17.500A Osteomyelitis M86.9 Acute on chronic renal failure N17.9; N18.9 Quadriplegia G82.50 Hypothyroid E03.9 Hypothyroidism type: unspecified CAD (coronary artery disease) I25.10 Coronary Disease-Associated Artery/Lesion type: [place] artery [place] vs. transplanted heart: [place] heart Associated angina: without angina Chronic osteomyelitis M86.60 Diabetes type 2, controlled E11.9 Diabetes mellitus exterminator helper termite insulin use: unspecified exterminator helper termite insulin use status Diabetes mellitus complication status: without complication UTI (urinary tract infection) N39.0 Hyperkalemia E87.5 Stage IV pressure ulcer of right heel L89.614 Septic shock A41.9; R65.21 Decubitus ulcer of sacral region, stage 4 L89.154 Solitary kidney Q60.0 (1) Hypothyroid Hypothyroidism type: unspecified Qualified Code(s): E03.9 - Hypothyroidism, unspecified (2) CAD (coronary artery disease) Coronary Disease-Associated Artery/Lesion type: [place] artery [place] vs. transplanted heart: [place] heart Associated angina: without angina Qualified Code(s): I25.10 - Atherosclerotic heart disease of [place] coronary artery without angina pectoris (3) Diabetes type 2, controlled Diabetes mellitus detention insulin use: unspecified detention insulin use status Diabetes mellitus complication status: without complication Qualified Code(s): E11.9 - Type 2 diabetes mellitus without complications
[2021-06-29] MEDS: GLYCOPYRROLATE 0.2 MG/ML VIAL IV SCH ×7 (00:03→21:08)
[2021-06-29] MEDS: COLLAGENASE OINT 30 GM TUBE TOP SCH (10:42)
--- NOTE | 2021-06-29 20:39 | Hospitalist Progress Note ---
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 At this time, she is hemodynamically stable. PO intake is low, but appears to be staying hydrated with ~300 mL UOP per day. - Continue to treat pain, anxiety, secretions as needed Discussed with daughter the signs that her mother is reaching close to passing: * Lethargic/asleep for greater periods of time or not waking up at all * Decreasing respiration rate * Loss of urine output If we see any of these signs, her mother's passing may be more imminent. Today, she is lethargic, but does awake. Appetite is poor. UOP remains stable for now. (2) Multifocal pneumonia: Plan: - Patient remains comfort care. (3) Acute respiratory failure with hypoxia: Plan: 2nd to #2. Intubated 06/13, extubated 06/14. Re-intubated 06/14, extubated 06/16. Intubated early AM 06/17. Extubated to NC O2/ comfort care on 06/18. - O2 for comfort. Presently needs 3L NC. (4) Mucus plugging of bronchi: Plan: S/p multiple bronchs this admission for such (with lavage). Unable to expectora te sputum due to weak respiratory muscles from quad status. (5) Osteomyelitis: Plan: Right heel. Abx stopped - transitioned to comfort care. (6) Acute on chronic renal failure: Plan: Acute renal failure / ALIX 2nd to ATN from sepsis. -> Creatinine was near 6 last check (5.70 on 06/18). She has solitary kidney. Patient with previous living will declining dialysis. - Keep [place] for comfort. (7) Quadriplegia: Plan: 2nd to previous cervical spine surgery in 09/2019. 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 (10) Chronic osteomyelitis: Plan: - see above (11) Diabetes type 2, controlled: Plan: - typically takes lantus. Her oral intake is poor. Lantus stopped. - patient on palliative care/RADIO SCRIPT WRITER (12) UTI (urinary tract infection): Plan: Abx employed earlier in the stay; now discontinued d/t RADIO SCRIPT WRITER. (13) Hyperkalemia: Plan: 2nd to #3 (14) Stage IV pressure ulcer of right heel: Plan: Provide repositioning, pain meds as needed, dressings. - Presently not much pain. (15) Septic shock: Plan: 2nd to #2 resolved (16) Decubitus ulcer of sacral region, stage 4: Plan: repositioning, pain meds (17) Solitary kidney: Plan: h/o right nephrectomy - RCC? CT abd/pelvis in April with left-sided kidney only c/w her history Admission and Anticipated Discharge Date Admission Date: June 13, 2021 Subjective Woke up for me. Denied pain, shortness of breath, n/v/d. Did not eat any of her lunch. Physical Exam Constitutional: + ill appearing, + frail appearing and + lethargic Eyes: EOM intact bilaterally; no conjunctival abnormality ENMT: external ear and nose normal, oropharynx normal Neck: trachea midline, no thyromegaly normal visual inspection Respiratory: normal respiratory effort, lungs clear to auscultation no respiratory distress Cardiovascular: RRR, no murmur, no edema Gastrointestinal (Abdomen): Inspection/Auscultation: abdomen normal to inspection; abdomen not distended Skin: no rashes, warm and dry Neurologic: awake Psychiatric: Orientation: oriented to person and cooperative Speech: + abnormal rate/rhythm/volume of speech (Slow, minimal) PG Care Time/CCT Total # of Minutes Spent Total Time Spent with Patient: Total time spent is greater than 50% in coordination of care (as documented) at patient's floor/unit and/or counseling patient: Coding Level of Care Code 01387 Subseq Hosp Care Lvl 1 Diagnoses Palliative care patient Z51.5 Multifocal pneumonia J18.9 Acute respiratory failure with hypoxia J96.01 Mucus plugging of bronchi T17.500A Osteomyelitis M86.9 Acute on chronic renal failure N17.9; N18.9 Quadriplegia G82.50 Hypothyroid E03.9 Hypothyroidism type: unspecified CAD (coronary artery disease) I25.10 Coronary Disease-Associated Artery/Lesion type: [place] artery [place] vs. transplanted heart: [place] heart Associated angina: without angina Chronic osteomyelitis M86.60 Diabetes type 2, controlled E11.9 Diabetes mellitus lobsterman insulin use: unspecified intermediate insulin use status Diabetes mellitus complication status: without complication UTI (urinary tract infection) N39.0 Hyperkalemia E87.5 Stage IV pressure ulcer of right heel L89.614 Septic shock A41.9; R65.21 Decubitus ulcer of sacral region, stage 4 L89.154 Solitary kidney Q60.0 (1) Hypothyroid Hypothyroidism type: unspecified Qualified Code(s): E03.9 - Hypothyroidism, unspecified (2) CAD (coronary artery disease) Coronary Disease-Associated Artery/Lesion type: [place] artery [place] vs. transplanted heart: [place] heart Associated angina: without angina Qualified Code(s): I25.10 - Atherosclerotic heart disease of [place] coronary artery without angina pectoris (3) Diabetes type 2, controlled Diabetes mellitus intermediate insulin use: unspecified lobsterman insulin use status Diabetes mellitus complication status: without complication Qualified Code(s): E11.9 - Type 2 diabetes mellitus without complications
[2021-06-30] MEDS: GLYCOPYRROLATE 0.2 MG/ML VIAL IV SCH ×6 (02:32→21:52)
[2021-06-30] MEDS: COLLAGENASE OINT 30 GM TUBE TOP SCH (11:26)
--- NOTE | 2021-06-30 13:23 | Hospitalist Progress Note ---
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 At this time, she is hemodynamically stable. PO intake is low, but appears to be staying hydrated with ~300 mL UOP per day. - Continue to treat pain, anxiety, secretions as needed Discussed with daughter the signs that her mother is reaching close to passing: * Lethargic/asleep for greater periods of time or not waking up at all * Decreasing respiration rate * Loss of urine output If we see any of these signs, her mother's passing may be more imminent. Today, she is lethargic, but does awake. Appetite is poor. UOP slowing slightly. Mouth is more dry today. (2) Multifocal pneumonia: Plan: - Patient remains comfort care. (3) Acute respiratory failure with hypoxia: Plan: 2nd to #2. Intubated 06/13, extubated 06/14. Re-intubated 06/14, extubated 06/16. Intubated early AM 06/17. Extubated to NC O2/ comfort care on 06/18. - O2 for comfort. Presently needs 3L NC. (4) Mucus plugging of bronchi: Plan: S/p multiple bronchs this admission for such (with lavage). Unable to expectorate sputum due to weak respiratory muscles from quad status. (5) Osteomyelitis: Plan: Right heel. Abx stopped - transitioned to comfort care. (6) Acute on chronic renal failure: Plan: Acute renal failure / ALIX 2nd to ATN from sepsis. -> Creatinine was near 6 last check (5.70 on 06/18). She has solitary kidney. Patient with previous living will declining dialysis. - Keep [place] for comfort. (7) Quadriplegia: Plan: 2nd to previous cervical spine surgery in 09/2019. 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 (10) Chronic osteomyelitis: Plan: - see above (11) Diabetes type 2, controlled: Plan: - typically takes lantus. Her oral intake is poor. Lantus stopped. - patient on palliative care/SALES AND MARKETING ENGINEER (12) UTI (urinary tract infection): Plan: Abx employed earlier in the stay; now discontinued d/t SALES AND MARKETING ENGINEER. (13) Hyperkalemia: Plan: 2nd to #3 (14) Stage IV pressure ulcer of right heel: Plan: Provide repositioning, pain meds as needed, dressings. - Presently not much pain. (15) Septic shock: Plan: 2nd to #2 resolved (16) Decubitus ulcer of sacral region, stage 4: Plan: repositioning, pain meds (17) Solitary kidney: Plan: h/o right nephrectomy - RCC? CT abd/pelvis in April with left-sided kidney only c/w her history Admission and Anticipated Discharge Date Admission Date: June 13, 2021 Subjective Wakes up slightly today. No pain. No shortness of breath. No concerns. Physical Exam Constitutional: + ill appearing, + frail appearing and + lethargic Eyes: EOM intact bilaterally; no conjunctival abnormality ENMT: external ear and nose normal, oropharynx normal Neck: trachea midline, no thyromegaly normal visual inspection Respiratory: normal respiratory effort, lungs clear to auscultation no respiratory distress Cardiovascular: RRR, no murmur, no edema Gastrointestinal (Abdomen): Inspection/Auscultation: abdomen normal to inspection; abdomen not distended Skin: no rashes, warm and dry Neurologic: awake Psychiatric: Orientation: oriented to person and cooperative Speech: + abnormal rate/rhythm/volume of speech (Slow, minimal) PG Care Time/CCT Total # of Minutes Spent Total Time Spent with Patient: Total time spent is greater than 50% in coordination of care (as documented) at patient's floor/unit and/or counseling patient: Coding Level of Care Code 09050 Subseq Hosp Care Lvl 1 Diagnoses Palliative care patient Z51.5 Multifocal pneumonia J18.9 Acute respiratory failure with hypoxia J96.01 Mucus plugging of bronchi T17.500A Osteomyelitis M86.9 Acute on chronic renal failure N17.9; N18.9 Quadriplegia G82.50 Hypothyroid E03.9 Hypothyroidism type: unspecified CAD (coronary artery disease) I25.10 Coronary Disease-Associated Artery/Lesion type: [place] artery [place] vs. transplanted heart: [place] heart Associated angina: without angina Chronic osteomyelitis M86.60 Diabetes type 2, controlled E11.9 Diabetes mellitus safety analyst insulin use: unspecified group home insulin use status Diabetes mellitus complication status: without complication UTI (urinary tract infection) N39.0 Hyperkalemia E87.5 Stage IV pressure ulcer of right heel L89.614 Septic shock A41.9; R65.21 Decubitus ulcer of sacral region, stage 4 L89.154 Solitary kidney Q60.0 (1) Hypothyroid Hypothyroidism type: unspecified Qualified Code(s): E03.9 - Hypothyroidism, unspecified (2) CAD (coronary artery disease) Coronary Disease-Associated Artery/Lesion type: [place] artery [place] vs. transplanted heart: [place] heart Associated angina: without angina Qualified Code(s): I25.10 - Atherosclerotic heart disease of [place] coronary artery without angina pectoris (3) Diabetes type 2, controlled Diabetes mellitus safety analyst insulin use: unspecified group home insulin use status Diabetes mellitus complication status: without complication Qualified Code(s): E11.9 - Type 2 diabetes mellitus without complications
[2021-06-30] MEDS: HYDROmorphone INJ 0.5 MG/0.5 ML SYR IV PRN (21:58)
[2021-07-01] MEDS: HYDROmorphone INJ 0.5 MG/0.5 ML SYR IV PRN ×4 (02:27→16:31)
[2021-07-01] MEDS: GLYCOPYRROLATE 0.2 MG/ML VIAL IV SCH ×6 (02:27→21:49)
--- NOTE | 2021-07-01 10:41 | Palliative Care Progress Note ---
Date of Service July 01, 2021 Assessment & Plan (1) Dyspnea: Plan: Daughter is concerned about her feeling like she is suffocating. She appears comfortable at this time. We did discuss normal changes in breathing pattern, sometimes with accessory muscle use which does not necessarily indicate distress. Daughter did notice increased work of breathing after repositioning. Given her concerns about Anette experiencing air hunger, we discussed routine opioid dosing. Anna would prefer to do this. Will order routine oxycodone dosing for steady state relief. No audible rhonchi, will decrease frequency on robinul. (2) Palliative care encounter: Plan: Talked with daughter about changes in breathing and responsiveness. She understands that Anette is approaching her dying time. She tells me that she is trying to prepare herself mentally for this. She has been at Anette's bedside and is very supportive. Will check daily vital signs to monitor changes and provide prognositic information for family. (3) Acute respiratory failure with hypoxia: Admission and Anticipated Discharge Date Admission Date: June 13, 2021 Subjective More lethargic today. No po intake. Urine output 300cc evening shift yesterday. Daughter notes increased work of breathing. Anette opens her eyes only briefly, does not respond to questions. Review of Systems Review of Systems: Unobtainable due to reduced consciousness [place] Symptom Assessment Scale Pain by observation 0/3 Dyspnea by observation 0/3 Palliative Performance Score 20% Physical Exam Constitutional: + lethargic; no acute distress ENMT: Mouth: + dry oral mucous membranes Respiratory: normal respiratory effort; no labored breathing no audible rhonchi, BS decreased on left Gastrointestinal (Abdomen): nontender Musculoskeletal: contractures Genitourinary: [place] catheter Results & Data ([facility]) Vital Signs (Past 12 Hours) Vital Signs Temp Pulse Resp BP Pulse Ox 07/01/21 10:33 97.7 F 79 16 109/61 91 07/01/21 06:27 10 L PG Care Time/CCT Total # of Minutes Spent Total Time Spent: 40 Total Time Spent with Patient: Total time spent is greater than 50% in coordination of care (as documented) at patient's floor/unit and/or counseling patient: symptom mangement, prognosis, what to expect. Coding Level of Care Code 71348 Subseq Hosp Care Lvl 3 Diagnoses Dyspnea R06.00 Palliative care encounter Z51.5 Acute respiratory failure with hypoxia J96.01
[2021-07-01] MEDS: COLLAGENASE OINT 30 GM TUBE TOP SCH (16:13)
--- NOTE | 2021-07-01 22:52 | Hospitalist Progress Note ---
Date of Service July 01, 2021 Assessment & Plan (1) Palliative care patient: Plan: cont palliative care pathway - NC O2, parada, pain meds, ativan, etc patient very lethargic today - suspect we are a short # of days away from passing she was comfortable during the visit today support given to daughter at bedside appreciated ongoing palliative care support from Dr Lambert (2) Multifocal pneumonia: Plan: present on admission leading to intubation/mech ventilation early on in stay pneumonia 2nd to aspiration (3) Acute respiratory failure with hypoxia: Plan: 2nd to #1. Intubated 06/13, extubated 06/14. Re-intubated 06/14, extubated 06/16. Intubated early AM 06/17. Extubated to NC O2/ comfort care on 06/18. Cont NC O2 for comfort. (4) Mucus plugging of bronchi: Plan: s/p multiple bronchs this admission for such. (5) Osteomyelitis: Plan: Right heel. Abx stopped - transitioned to comfort care. (6) Acute on chronic renal failure: Plan: Acute renal failure / ALIX 2nd to ATN from sepsis. Creatinine was near 6 prior to transition to comfort care. parada. (7) Quadriplegia: Plan: 2nd to previous cervical spine surgery. 09/2019. (8) Hypothyroid: (9) CAD (coronary artery disease): (10) Chronic osteomyelitis: (11) Diabetes type 2, controlled: (12) UTI (urinary tract infection): (13) Hyperkalemia: (14) Stage IV pressure ulcer of right heel: Plan: provide repositioning, pain meds as needed, dressings (15) Septic shock: Plan: 2nd to #1 at admission (16) Decubitus ulcer of sacral region, stage 4: Plan: repositioning, pain meds, basic dressing changes (17) Maren infection: (18) Solitary kidney: Plan: h/o right nephrectomy - RCC? Plan: continue comfort care pathway appreciate palliative care team input and med adjustments support given to daughter Admission and Anticipated Discharge Date Admission Date: June 13, 2021 Subjective pt lethargic during my entire visit woke briefly to name being called then fell back asleep quickly daughter at bedside - states she is not eating/drinking, hardly awake still coughing and last pm was in mild distress from such; daughter requested meds and she settled down UOP dropping off daughter denies any other needs at this time Review of Systems Review of Systems: Unobtainable due to cognitive status and Unobtainable due to reduced consciousness Physical Exam Physical Exam: gen - lethargic, dehydrated, comfortable neck - no JVD mouth - MM severely dry heart - RRR s1 s2 lungs - no air movement L lung anteriorly; poor air movement R anterior chest; decreased BS b/l bases abd - mild distension but NT, BS+ but decreased ext - trace edema, pulses 2+ b/l PG Care Time/CCT Total # of Minutes Spent Total Time Spent with Patient: Total time spent is greater than 50% in coordination of care (as documented) at patient's floor/unit and/or counseling patient: Coding Level of Care Code 27858 Subseq Hosp Care Lvl 1 Diagnoses Palliative care patient Z51.5 Multifocal pneumonia J18.9 Acute respiratory failure with hypoxia J96.01 Mucus plugging of bronchi T17.500A Osteomyelitis M86.9 Acute on chronic renal failure N17.9; N18.9 Quadriplegia G82.50 Hypothyroid E03.9 Hypothyroidism type: unspecified CAD (coronary artery disease) I25.10 Associated angina: without angina Coronary Disease-Associated Artery/Lesion type: [place] artery [place] vs. transplanted heart: [place] heart Chronic osteomyelitis M86.60 Diabetes type 2, controlled E11.9 Diabetes mellitus complication status: without complication Diabetes mellitus intermediate card tender insulin use: unspecified intermediate card tender insulin use status UTI (urinary tract infection) N39.0 Hyperkalemia E87.5 Stage IV pressure ulcer of right heel L89.614 Septic shock A41.9; R65.21 Decubitus ulcer of sacral region, stage 4 L89.154 Maren infection B37.9 Solitary kidney Q60.0 (1) CAD (coronary artery disease) Associated angina: without angina Coronary Disease-Associated Artery/Lesion type: [place] artery [place] vs. transplanted heart: [place] heart Qualified Code(s): I25.10 - Atherosclerotic heart disease of [place] coronary artery without angina pectoris (2) Hypothyroid Hypothyroidism type: unspecified Qualified Code(s): E03.9 - Hypothyroidism, unspecified (3) Diabetes type 2, controlled Diabetes mellitus complication status: without complication Diabetes mellitus intermediate card tender insulin use: unspecified skilled nursing insulin use status Qualified Code(s): E11.9 - Type 2 diabetes mellitus without complications
[2021-07-02] MEDS: GLYCOPYRROLATE 0.2 MG/ML VIAL IV SCH ×4 (05:42→21:56)
--- NOTE | 2021-07-02 12:05 | Palliative Care Progress Note ---
Date of Service July 02, 2021 Assessment & Plan (1) Dyspnea: Plan: Controlled with routine opioid dosing. Continue gylcopyrrolate for secretions. (2) Palliative care encounter: Plan: She is slowly declining. Vital signs are essentially unchanged from yesterday. No signs of imminent . Continue comfort measures. Discussed with daughter. (3) Acute respiratory failure with hypoxia: Admission and Anticipated Discharge Date Admission Date: June 13, 2021 Subjective Minimally responsive. Opens eyes briefly when moved. Daughter feels that she is more comfortable with routine opioid. She continues to have moist cough. Review of Systems Review of Systems: Unobtainable due to reduced consciousness [place] Symptom Assessment Scale Pain 0/3 by observation Dyspnea 0/3 observation Palliative Performance Score 10% Physical Exam Constitutional: no acute distress Respiratory: normal respiratory effort; no labored breathing mild tracheal secretions noted Cardiovascular: no mottling Neurologic: + obtunded Results & Data ([facility]) Vital Signs (Past 12 Hours) Vital Signs Temp Pulse Resp BP Pulse Ox 07/02/21 11:04 85 L 07/02/21 10:17 98.1 F 84 14 111/60 65 L PG Care Time/CCT Total # of Minutes Spent Total Time Spent with Patient: Total time spent is greater than 50% in coordination of care (as documented) at patient's floor/unit and/or counseling patient: Coding Level of Care Code 82803 Subseq Hosp Care Lvl 2 Diagnoses Dyspnea R06.00 Palliative care encounter Z51.5 Acute respiratory failure with hypoxia J96.01
[2021-07-02] MEDS: COLLAGENASE OINT 30 GM TUBE TOP SCH (13:35)
--- NOTE | 2021-07-02 22:32 | Hospitalist Progress Note ---
Date of Service July 02, 2021 Assessment & Plan (1) Palliative care patient: Plan: cont palliative care pathway appreciate palliative care team management and recommendations she is well into her comfort care journey at this time; suspect her passing may be the next 2-3 days cont scheduled oxycodone q4h cont [place], [place] o2, etc offered pastoral support to the daughter; corporate secretary will attempt to call local clergy to provide blessing at bedside or by phone (2) Multifocal pneumonia: Plan: present on admission leading to intubation/mech ventilation early on in stay pneumonia 2nd to aspiration (3) Acute respiratory failure with hypoxia: Plan: 2nd to #1. Intubated 06/13, extubated 06/14. Re-intubated 06/14, extubated 06/16. Intubated early AM 06/17. Extubated to [place] O2/ comfort care on 06/18. Cont [place] O2 for comfort. (4) Mucus plugging of bronchi: Plan: s/p multiple bronchs this admission for such. (5) Osteomyelitis: Plan: Right heel. Abx stopped - transitioned to comfort care. (6) Acute on chronic renal failure: Plan: Acute renal failure / ALIX 2nd to ATN from sepsis. Creatinine was near 6 prior to transition to comfort care. (7) Quadriplegia: Plan: 2nd to previous cervical spine surgery in 09/2019. (8) Hypothyroid: (9) CAD (coronary artery disease): (10) Chronic osteomyelitis: (11) Diabetes type 2, controlled: (12) UTI (urinary tract infection): (13) Hyperkalemia: (14) Stage IV pressure ulcer of right heel: Plan: provide repositioning, pain meds as needed, dressings (15) Septic shock: Plan: 2nd to #1 at admission (16) Decubitus ulcer of sacral region, stage 4: Plan: repositioning, pain meds, basic dressing changes (17) Maren infection: (18) Solitary kidney: Plan: h/o right nephrectomy - RCC? Plan: continue comfort care pathway appreciate palliative care team input and med adjustments support given to daughter once again pastoral support if possible - see above discussed with daughter that apnea, etc is normal part of her comfort care state and that it will likely become more frequent Admission and Anticipated Discharge Date Admission Date: June 13, 2021 Subjective daughter at bedside pt largely unresponsive minimal opening of eyes to name being called no oral intake in numerous days irregular breathing noted by daughter daughter continues to stay at bedside 20/04 providing comfort to her mother Review of Systems Review of Systems: Unobtainable due to reduced consciousness Physical Exam Physical Exam: gen - lethargic borderline obtunded, dehydrated, comfortable/peaceful; irregular breathing and hypopnea noted neck - no JVD mouth - MM severely dry heart - RRR s1 s2 lungs - no air movement L lung anteriorly; poor air movement R anterior chest; decreased BS b/l bases abd - soft, no apparent tenderness ext - trace edema, pulses 2+ b/l, boots in place Results & Data Results & Data ([facility]) Vital Signs (Past 12 Hours) Vital Signs Pulse Ox 07/02/21 11:04 85 L PG Care Time/CCT Total # of Minutes Spent Total Time Spent with Patient: Total time spent is greater than 50% in coordination of care (as documented) at patient's floor/unit and/or counseling patient: Coding Level of Care Code 00575 Subseq Hosp Care Lvl 1 Diagnoses Palliative care patient Z51.5 Multifocal pneumonia J18.9 Acute respiratory failure with hypoxia J96.01 Mucus plugging of bronchi T17.500A Osteomyelitis M86.9 Acute on chronic renal failure N17.9; N18.9 Quadriplegia G82.50 Hypothyroid E03.9 Hypothyroidism type: unspecified CAD (coronary artery disease) I25.10 Associated angina: without angina Coronary Disease-Associated Artery/Lesion type: [place] artery [place] vs. 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
[2021-07-03] MEDS: GLYCOPYRROLATE 0.2 MG/ML VIAL IV SCH ×4 (05:48→22:28)
[2021-07-03] MEDS: COLLAGENASE OINT 30 GM TUBE TOP SCH (06:59)
[2021-07-03] MEDS ORDERED: MoRPHine SULFATE 2 MG/ML CARP IV PRN (21:32)
--- NOTE | 2021-07-03 21:33 | Hospitalist Progress Note ---
Date of Service July 03, 2021 Assessment & Plan (1) Palliative care patient: Plan: cont palliative care pathway appreciate palliative care team management and recommendations she is well into her comfort care journey at this time; suspect her passing may be the next 2-3 days cont scheduled oxycodone q4h cont [place], [place] o2, etc added morphine 2mg IV q1h for dyspnea/pain (2) Multifocal pneumonia: Plan: present on admission leading to intubation/mech ventilation early on in stay pneumonia 2nd to aspiration (3) Acute respiratory failure with hypoxia: Plan: 2nd to #1. Intubated 06/13, extubated 06/14. Re-intubated 06/14, extubated 06/16. Intubated early AM 06/17. Extubated to [place] O2/ comfort care on 06/18. Cont [place] O2 for comfort. (4) Mucus plugging of bronchi: Plan: s/p multiple bronchs this admission for such. (5) Osteomyelitis: Plan: Right heel. Abx stopped - transitioned to comfort care. (6) Acute on chronic renal failure: Plan: Acute renal failure / ALIX 2nd to ATN from sepsis. Creatinine was near 6 prior to transition to comfort care. (7) Quadriplegia: Plan: 2nd to previous cervical spine surgery in 09/2019. (8) Hypothyroid: (9) CAD (coronary artery disease): (10) Chronic osteomyelitis: (11) Diabetes type 2, controlled: (12) UTI (urinary tract infection): (13) Hyperkalemia: (14) Stage IV pressure ulcer of right heel: Plan: provide repositioning, pain meds as needed, dressings (15) Septic shock: Plan: 2nd to #1 at admission (16) Decubitus ulcer of sacral region, stage 4: Plan: repositioning, pain meds, basic dressing changes (17) Maren infection: (18) Solitary kidney: Plan: h/o right nephrectomy - RCC? Plan: continue comfort care pathway support given to daughter at bedside Admission and Anticipated Discharge Date Admission Date: June 13, 2021 Subjective daughter remains diligently at bedside her mother has largely been obtunded today only opened eyes briefly once when her significant other, Jay Jay, was visiting today breathing has become irregular largely comfortable Review of Systems Review of Systems: Unobtainable due to reduced consciousness Physical Exam Physical Exam: gen - obtunded, irregular breathing; hypopneas noted neck - no JVD mouth - MM severely dry heart - RRR s1 s2 lungs - no air movement L lung anteriorly; minimal air movement R anterior chest; decreased BS b/l bases; hypopneas abd - soft, no apparent tenderness ext - trace edema, pulses 2+ b/l, boots in place Results & Data Results & Data ([facility]) Vital Signs (Past 12 Hours) Vital Signs Temp Pulse Resp BP Pulse Ox 07/03/21 10:01 37 C 82 20 100/52 L 80 L PG Care Time/CCT Total # of Minutes Spent Total Time Spent with Patient: Total time spent is greater than 50% in coordination of care (as documented) at patient's floor/unit and/or counseling patient: Coding Level of Care Code 18343 Subseq Hosp Care Lvl 1 Diagnoses Palliative care patient Z51.5 Multifocal pneumonia J18.9 Acute respiratory failure with hypoxia J96.01 Mucus plugging of bronchi T17.500A Osteomyelitis M86.9 Acute on chronic renal failure N17.9; N18.9 Quadriplegia G82.50 Hypothyroid E03.9 Hypothyroidism type: unspecified CAD (coronary artery disease) I25.10 Associated angina: without angina Coronary Disease-Associated Artery/Lesion type: [place] artery [place] vs. transplanted heart: [place] heart Chronic osteomyelitis M86.60 Diabetes type 2, controlled E11.9 Diabetes mellitus complication status: without complication Diabetes mellitus intermission coordinator insulin use: unspecified usp insulin use status UTI (urinary tract infection) N39.0 Hyperkalemia E87.5 Stage IV pressure ulcer of right heel L89.614 Septic shock A41.9; R65.21 Decubitus ulcer of sacral region, stage 4 L89.154 Maren infection B37.9 Solitary kidney Q60.0 (1) CAD (coronary artery disease) Associated angina: without angina Coronary Disease-Associated Artery/Lesion type: [place] artery [place] vs. transplanted heart: [place] heart Qualified Code(s): I25.10 - Atherosclerotic heart disease of [place] coronary artery without angina pectoris (2) Hypothyroid Hypothyroidism type: unspecified Qualified Code(s): E03.9 - Hypothyroidism, unspecified (3) Diabetes type 2, controlled Diabetes mellitus complication status: without complication Diabetes mellitus intermission coordinator insulin use: unspecified usp insulin use status Qualified Code(s): E11.9 - Type 2 diabetes mellitus without complications
[2021-07-04] MEDS: GLYCOPYRROLATE 0.2 MG/ML VIAL IV SCH ×4 (04:51→22:21)
[2021-07-04] MEDS: COLLAGENASE OINT 30 GM TUBE TOP SCH (06:54)
--- NOTE | 2021-07-04 13:32 | Palliative Care Progress Note ---
Date of Service July 04, 2021 Assessment & Plan (1) Palliative care encounter: Plan: She appears to be very near her dying time. I talked with daughter to anticipate that she may within hours to a day. She has strong jabier and hopes for her mother to be in a better place. Will continue current meds. She does have prn opioid available if needed for pain or dyspnea. Discussed with RN. Admission and Anticipated Discharge Date Admission Date: June 13, 2021 Subjective No response to voice or touch. Grimaces with movement. Daughter has requested no repositioning. No prn pain medications Review of Systems Review of Systems: Unobtainable due to reduced consciousness [place] Symptom Assessment Scale Pain 0/3 by observation Dyspnea 0/3 by observation Palliative Peformance Score 10% Physical Exam Constitutional: no acute distress ENMT: Mouth: + dry oral mucous membranes Respiratory: shallow respirations with apnea, no audible rhonchi Neurologic: + obtunded Results & Data ([facility]) Vital Signs (Past 12 Hours) Vital Signs Pulse Resp Pulse Ox 07/04/21 12:04 88 14 83 L PG Care Time/CCT Total # of Minutes Spent Total Time Spent with Patient: Total time spent is greater than 50% in coordination of care (as documented) at patient's floor/unit and/or counseling patient: Coding Level of Care Code 16791 Subseq Hosp Care Lvl 2 Diagnoses Palliative care encounter Z51.5
[2021-07-04] MEDS: HYDROmorphone INJ 0.5 MG/0.5 ML SYR IV PRN (15:58)
--- NOTE | 2021-07-04 21:12 | Hospitalist Progress Note ---
Date of Service July 04, 2021 Assessment & Plan (1) Palliative care patient: Plan: cont palliative care pathway appreciate palliative care team management and recommendations she is well into her comfort care journey at this time; suspect her passing may be the next 1-2 days cont scheduled oxycodone q4h cont [place], [place] o2, etc added morphine 2mg IV q1h for dyspnea/pain; palliative team changed such to q1h dilaudid prn (2) Multifocal pneumonia: Plan: present on admission leading to intubation/mech ventilation early on in stay pneumonia 2nd to aspiration (3) Acute respiratory failure with hypoxia: Plan: 2nd to #1. Intubated 06/13, extubated 06/14. Re-intubated 06/14, extubated 06/16. Re-intubated early AM 06/17. Extubated to [place] O2/comfort care on 06/18. Cont [place] O2 for comfort. (4) Mucus plugging of bronchi: Plan: s/p multiple bronchs this admission for such. (5) Osteomyelitis: Plan: Right heel. Abx stopped - transitioned to comfort care. (6) Acute on chronic renal failure: Plan: Acute renal failure / ALIX 2nd to ATN from sepsis. Creatinine was near 6 prior to transition to comfort care. (7) Quadriplegia: Plan: 2nd to previous cervical spine surgery in 09/2019. (8) Hypothyroid: (9) CAD (coronary artery disease): (10) Chronic osteomyelitis: (11) Diabetes type 2, controlled: (12) UTI (urinary tract infection): (13) Hyperkalemia: (14) Stage IV pressure ulcer of right heel: Plan: provide repositioning, pain meds as needed, dressings (15) Septic shock: Plan: 2nd to #1 at admission (16) Decubitus ulcer of sacral region, stage 4: Plan: repositioning, pain meds, basic dressing changes (17) Maren infection: (18) Solitary kidney: Plan: h/o right nephrectomy - RCC? Plan: no changes in comfort care plan Admission and Anticipated Discharge Date Admission Date: June 13, 2021 Subjective pt obtunded during the visit has been so all day today shallow breathing noted by daughter minimal UOP Review of Systems Review of Systems: Unobtainable due to reduced consciousness Physical Exam Physical Exam: gen - obtunded, irregular/shallow breathing; apnea noted neck - no JVD mouth - MM severely dry heart - RRR s1 s2 lungs - no air movement L lung anteriorly; minimal air movement R anterior chest ext - trace edema, pulses 2+ b/l, boots in place Results & Data Results & Data ([facility]) Vital Signs (Past 12 Hours) Vital Signs Pulse Resp Pulse Ox 07/04/21 12:04 88 14 83 L PG Care Time/CCT Total # of Minutes Spent Total Time Spent with Patient: Total time spent is greater than 50% in coordination of care (as documented) at patient's floor/unit and/or counseling p atient: Coding Level of Care Code 24350 Subseq Hosp Care Lvl 1 Diagnoses Palliative care patient Z51.5 Multifocal pneumonia J18.9 Acute respiratory failure with hypoxia J96.01 Mucus plugging of bronchi T17.500A Osteomyelitis M86.9 Acute on chronic renal failure N17.9; N18.9 Quadriplegia G82.50 Hypothyroid E03.9 Hypothyroidism type: unspecified CAD (coronary artery disease) I25.10 Associated angina: without angina Coronary Disease-Associated Artery/Lesion type: [place] artery [place] vs. 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
[2021-07-05] MEDS: GLYCOPYRROLATE 0.2 MG/ML VIAL IV SCH ×4 (04:19→22:26)
[2021-07-05] MEDS: COLLAGENASE OINT 30 GM TUBE TOP SCH (08:55)
[2021-07-05] MEDS: HYDROmorphone INJ 0.5 MG/0.5 ML SYR IV PRN ×2 (17:23→20:59)
--- NOTE | 2021-07-05 19:43 | Hospitalist Progress Note ---
Date of Service July 05, 2021 Assessment & Plan (1) Palliative care patient: Plan: cont palliative care pathway appreciate palliative care team management and recommendations cont scheduled oxycodone q4h cont [place] cont dilaudid prn; ativan prn (2) Multifocal pneumonia: Plan: present on admission leading to intubation/mech ventilation early on in stay pneumonia 2nd to aspiration (3) Acute respiratory failure with hypoxia: Plan: 2nd to #1. Intubated 06/13, extubated 06/14. Re-intubated 06/14, extubated 06/16. Re-intubated early AM 06/17. Extubated to [place] O2/comfort care on 06/18. O2 is off. (4) Mucus plugging of bronchi: Plan: s/p multiple bronchs this admission for such. (5) Osteomyelitis: Plan: Right heel. Abx stopped - transitioned to comfort care. (6) Acute on chronic renal failure: Plan: Acute renal failure / ALIX 2nd to ATN from sepsis. Creatinine was near 6 prior to transition to comfort care. (7) Quadriplegia: Plan: 2nd to previous cervical spine surgery in 09/2019. (8) Hypothyroid: (9) CAD (coronary artery disease): (10) Chronic osteomyelitis: (11) Diabetes type 2, controlled: (12) UTI (urinary tract infection): (13) Hyperkalemia: (14) Stage IV pressure ulcer of right heel: (15) Septic shock: Plan: 2nd to #1 at admission (16) Decubitus ulcer of sacral region, stage 4: Plan: repositioning, pain meds basic dressing changes stopped to avoid having to move her; daughter feels moving her seems uncomfortable for her mother (17) Maren infection: (18) Solitary kidney: Plan: h/o right nephrectomy - RCC? Plan: no changes in comfort care plan today except [place] O2 stopped Admission and Anticipated Discharge Date Admission Date: June 13, 2021 Subjective pt obtunded daughter remains at bedside patient comfortable on scheduled oxycodone and prn dilaudid patient's daughter asked about the [place] O2 I explained that it is likely not giving comfort and can be safely removed during the visit I turned her [place] O2 off patient remained comfortable after its removal Review of Systems Review of Systems: Unobtainable due to cognitive status Physical Exam Physical Exam: gen - obtunded, hypopneas noted neck - no JVD mouth - MM severely dry heart - RRR s1 s2 abd - soft lungs - no air movement L lung anteriorly; minimal air movement R anterior chest ext - trace edema, pulses 2+ b/l, boots in place PG Care Time/CCT Total # of Minutes Spent Total Time Spent with Patient: Total time spent is greater than 50% in coordination of care (as documented) at patient's floor/unit and/or counseling patient: Coding Level of Care Code 15253 Subseq Hosp Care Lvl 1 Diagnoses Palliative care patient Z51.5 Multifocal pneumonia J18.9 Acute respiratory failure with hypoxia J96.01 Mucus plugging of bronchi T17.500A Osteomyelitis M86.9 Acute on chronic renal failure N17.9; N18.9 Quadriplegia G82.50 Hypothyroid E03.9 Hypothyroidism type: unspecified CAD (coronary artery disease) I25.10 Associated angina: without angina Coronary Disease-Associated Artery/Lesion type: [place] artery [place] vs. transplanted heart: [place] heart Chronic osteomyelitis M86.60 Diabetes type 2, controlled E11.9 Diabetes mellitus complication status: without complication Diabetes mellitus fpc insulin use: unspecified fpc insulin use status UTI (urinary tract infection) N39.0 Hyperkalemia E87.5 Stage IV pressure ulcer of right heel L89.614 Septic shock A41.9; R65.21 Decubitus ulcer of sacral region, stage 4 L89.154 Maren infection B37.9 Solitary kidney Q60.0 (1) CAD (coronary artery disease) Associated angina: without angina Coronary Disease-Associated Artery/Lesion type: [place] artery [place] vs. transplanted heart: [place] heart Qualified Code(s): I25.10 - Atherosclerotic heart disease of [place] coronary artery without angina pectoris (2) Hypothyroid Hypothyroidism type: unspecified Qualified Code(s): E03.9 - Hypothyroidism, unspecified (3) Diabetes type 2, controlled Diabetes mellitus complication status: without complication Diabetes mellitus machine assistant insulin use: unspecified fpc insulin use status Qualified Code(s): E11.9 - Type 2 diabetes mellitus without complications
[2021-07-06] MEDS: HYDROmorphone INJ 0.5 MG/0.5 ML SYR IV PRN ×6 (00:55→16:53)
[2021-07-06] MEDS: GLYCOPYRROLATE 0.2 MG/ML VIAL IV SCH ×4 (04:30→23:09)
[2021-07-06] MEDS: COLLAGENASE OINT 30 GM TUBE TOP SCH (12:24)
[2021-07-06] MEDS ORDERED: oxyCODONE HCL SOLN 5 MG/5 ML UDC PO SCH (15:00)
[2021-07-06] MEDS: HYDROmorphone INJ 0.5 MG/0.5 ML SYR IV SCH ×3 (18:29→23:09)
--- NOTE | 2021-07-06 22:16 | Communication Note ---
Date of Service: July 06, 2021 Daily Progress Note: S: patient remains obtunded; occasional movements of jaw/mouth noted by daughter, Anna, at bedside. No UOP. Needing dilaudid prn more frequently overnight. O: gen - obtunded, mild cyanosis of lips/mouth mouth - MM very dry heart - RRR, s1 s2 lungs - shallow breathing, minimal air movement, tachypnea, mild subcostal retractions abd - soft ext - warm A/P: 1. palliative care patient on comfort care measures. 2. quadriplegic status. 3. acute hypoxic respiratory failure s/p intubation/mech ventilation earlier this stay (multiple times). 4. aspiration pneumonia leading to #3. 5. sacral ulcer, stage 4. Cont comfort care pathway. STOP oral oxycodone - daughter is concerned that often times it rolls out of mouth; uncertain how much she is getting. Change dilaudid to 1mg IV q2h scheduled. If she needs additional meds for respiratory distress/tachypnea then simply place on dilaudid infusion. Support given to daughter. Flako George MD
--- NOTE | 2021-07-06 22:16 | Billing Data ---
Date of Service July 06, 2021 Coding Level of Care Code 73772 Subseq Hosp Care Lvl 1
[2021-07-07] MEDS: HYDROmorphone INJ 0.5 MG/0.5 ML SYR IV SCH ×12 (00:59→22:51)
[2021-07-07] MEDS: GLYCOPYRROLATE 0.2 MG/ML VIAL IV SCH ×4 (05:05→22:51)
[2021-07-07] MEDS: COLLAGENASE OINT 30 GM TUBE TOP SCH (09:21)
--- NOTE | 2021-07-07 20:34 | Communication Note ---
Date of Service: July 07, 2021 Daily Progress Note: S: patient remains obtunded; No UOP. Daughter, Anna, remains at bedside. Receiving IV dilaudid q2h scheduled for comfort. O: gen - obtunded, cyanosis of lips/mouth, no purposeful movements mouth - MM very dry heart - RRR, s1 s2 lungs - shallow breathing, minimal air movement, tachypnea abd - soft ext - warm A/P: 1. palliative care patient on comfort care measures. 2. quadriplegic status. 3. acute hypoxic respiratory failure s/p intubation/mech ventilation earlier this stay (multiple times). 4. aspiration pneumonia leading to #3. 5. sacral ulcer, stage 4. Cont comfort care pathway. Cont scheduled dilaudid 1mg IV q2h. If she needs additional meds for respiratory distress/tachypnea tonight then simply place on dilaudid infusion with starting rate of 1mg/hr. Support given to daughter. Flako George MD
--- NOTE | 2021-07-07 20:35 | Billing Data ---
Date of Service July 07, 2021 Coding Level of Care Code 16425 Subseq Hosp Care Lvl 1
[2021-07-08] MEDS: HYDROmorphone INJ 0.5 MG/0.5 ML SYR IV SCH ×12 (00:46→22:14)
[2021-07-08] MEDS: GLYCOPYRROLATE 0.2 MG/ML VIAL IV SCH ×4 (05:03→22:14)
[2021-07-08] MEDS: COLLAGENASE OINT 30 GM TUBE TOP SCH (08:52)
--- NOTE | 2021-07-08 11:24 | Palliative Care Progress Note ---
Date of Service July 08, 2021 Assessment & Plan (1) Palliative care encounter: Plan: She has appeared near her dying time for several days. I talked with her daughter who remains at bedside. She has been praying with her mother, telling her that she will be ok and letting her know that its ok to go. She has been feeling increased anxiety with her mother's prolonged dying time. Anette does appear comfortable and still appears likely to within hours or a day or two. (2) Acute respiratory failure with hypoxia: (3) Septic shock: (4) Acute on chronic renal failure: Admission and Anticipated Discharge Date Admission Date: June 13, 2021 Subjective No response to voice or touch. She has been hypoxic for several days. Virtu ally no urine output with last BUN 103 three weeks ago. Appears comfortable with routine hydromorphone dosing. Daughter has asked that she not be moved unless absolutely necessary. Review of Systems Review of Systems: Unobtainable due to reduced consciousness [place] Symptom Assessment Scale Pain by observation 0/3 Dyspnea by observation 0/3 Palliative Performance Score 10% Physical Exam Constitutional: comfortable ENMT: Mouth: + dry oral mucous membranes Respiratory: shallow respirations, no audible tracheal secretions, no apnea observed Cardiovascular: nail beds cyanotic Musculoskeletal: contractures PG Care Time/CCT Total # of Minutes Spent Total Time Spent with Patient: Total time spent is greater than 50% in coordination of care (as documented) at patient's floor/unit and/or counseling patient: Coding Level of Care Code 78121 Subseq Hosp Care Lvl 2 Diagnoses Palliative care encounter Z51.5 Acute respiratory failure with hypoxia J96.01 Septic shock A41.9; R65.21 Acute on chronic renal failure N17.9; N18.9
--- NOTE | 2021-07-08 17:43 | Hospitalist Progress Note ---
Date of Service July 08, 2021 Assessment & Plan (1) Palliative care patient: Plan: - Continue palliative care pathway/measures - appreciate palliative care management - Continue DEREK dilaudid and can utilize drip if becomes uncomfortable - can start with rate of 1 mg/hr (2) Acute respiratory failure with hypoxia: Plan: - Aspiration pneumonia/multiple intubations earlier in admission - now on co mfort measures - Saturations ranging from 60-80 on RA Plan: Patient is actively dying at this time; [facility] Continue comfort measures Admission and Anticipated Discharge Date Admission Date: June 13, 2021 Subjective Pt is obtunded and appears comfortable. Pt's boyfriend and daughter at bedside. They feel the patient looks comfortable at this time. Daughter reports it seems when the patient is moved she looks uncomfortable so recommend minimal movement to promote patient comfort. Review of Systems Review of Systems: Unobtainable due to cognitive status Physical Exam Constitutional: Obtunded ENMT: + very dry mucous membranes Respiratory: Shallow; slightly agonal Results & Data Results & Data ([facility]) Vital Signs (Past 12 Hours) Vital Signs Pulse Ox 07/08/21 08:00 72 L PG Care Time/CCT Total # of Minutes Spent Total Time Spent with Patient: Total time spent is greater than 50% in coordination of care (as documented) at patient's floor/unit and/or counseling patient: Coding Level of Care Code 59346 Subseq Hosp Care Lvl 2 Diagnoses Palliative care patient Z51.5 Acute respiratory failure with hypoxia J96.01
[2021-07-09] MEDS: HYDROmorphone INJ 0.5 MG/0.5 ML SYR IV SCH ×12 (00:20→22:38)
[2021-07-09] MEDS: GLYCOPYRROLATE 0.2 MG/ML VIAL IV SCH ×3 (04:28→17:11)
[2021-07-09] MEDS ORDERED: HYDROmorphone INJ 1 MG/ML SYRINGE IV PRN (10:37)
--- NOTE | 2021-07-09 10:40 | Hospitalist Progress Note ---
Date of Service July 09, 2021 Assessment & Plan (1) Palliative care patient: Plan: - Continue palliative care pathway/measures - appreciate palliative care management - Continue DEREK dilaudid and can utilize drip if becomes uncomfortable - can start with rate of 1 mg/hr -- Will add Dilaudid 1 mg PRN for any breakthrough discomfort or respiratory distress - does appear more apneic today but comfortable (2) Acute respiratory failure with hypoxia: Plan: - Aspiration pneumonia/multiple intubations earlier in admission - now on comfort measures - Saturations ranging from 60-80 on RA Plan: Patient is actively dying at this time; not suitable for discharge from hospital. Continue comfort measures Admission and Anticipated Discharge Date Admission Date: June 13, 2021 Subjective Patient remains obtunded. Appears more apneic today but appears comfortable. Will add PRN Dilaudid for any breakthrough discomfort or respiratory distress especially as we get closer to her passing away. Updated daughter at bedside and did address any needs she may have. Review of Systems Review of Systems: Unobtainable due to cognitive status Physical Exam Physical Exam: PHYSICAL EXAM General Appearance: elderly woman NAD but apneic who is obtunded HEENT: Mucous membranes dry Heart: RRR with no M/G/R Lungs: Apneic respirations Psychiatric: Obtunded PG Care Time/CCT Total # of Minutes Spent Total Time Spent with Patient: Total time spent is greater than 50% in coordination of care (as documented) at patient's floor/unit and/or counseling patient: Coding Level of Care Code 63312 Subseq Hosp Care Lvl 2 Diagnoses Palliative care patient Z51.5 Acute respiratory failure with hypoxia J96.01
[2021-07-09] MEDS ORDERED: GLYCOPYRROLATE 0.2 MG/ML VIAL IV PRN (18:43)
[2021-07-09] MEDS: LORazepam 0.5 MG/1 ML VIAL IV PRN (23:37)
--- NOTE | 2021-07-10 00:39 | Death Pronouncement Note ---
Date of Service July 10, 2021 Pronouncement Note Admission Date Admission Date: June 13, 2021 Contributing Factors (1) Palliative care patient: (2) Acute respiratory failure with hypoxia: Summary Additional details: Called to bedside for report of patient at midnight. At bedside I evaluated and noted no pulse or respirations, no heart sounds, pupils fixed and dilated. Patient's daughter will speak with nursing staff and family regarding arrangements. Additional Data Confirmation of : no pulse, no respirations, no heart sounds and pupils fixed and dilated Family: at bedside Attending/PCP notified?: Yes Attending physician: DO Everett Hays MD Resident Activity Tracking Resident Involvement: Resident Care Provided Care Provided: Adult [facility] Medicine
--- NOTE | 2021-07-10 08:29 | Discharge Summary ---
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 Patient had I&D of the right heel ulcer with partial calcanectomy and abx beads on 05/24/21, She is on Diflucan for prophylactic wound coverage of her sacral wound- ID recommended to continue until July, and cefepime for her right foot for; she has a PICC line. She is partial quadriplegic from elective cervical spine surgery in 10/17. Patient was discharged on 05/30/21 following above admission to [facility]. Patient was brought to the EMD today via EMS for decreased mental status and hypoxia. In the EMD she had routine lab work completed as well as CXR performed. Patient was noted to have an elevated WBC count, ALIX with HAND COUNTER increased to 2.04, severe hypothyroidism, and CXR with left atelectasis/collapse. The patient was intubated in the EMD secondary to hypoxia with recorded SPO2 69-74 and placed on PEEP-10 and FIO2 70%, with increase of SPO2 to 95-96%. Patient was sedated on Fentanyl and Versed and hospitalist team was notified of admission. Patient will be admitted to the ICU. Will obtain CT non con of the chest for better evaluation of her left lower lobe opacity/collapse. Blood and urine cultures have been sent, [place] catheter is currently being exchanged as she has chronic indwelling [place]. Continue to evaluate source of WBC elevation, will continue meropenem, Vancomycin, and will add on Azithromycin for atypical pulmonary coverage. Patient COVID test on admission is NEGATIVE Principal Diagnosis Acute Respiratory Failure with Multi-Focal Pneumonia Discharge Exam Not performed by myself. Exam performed on 07/09 during daily rounding. Patient overnight, please see night provider's note. Discharge Data Allergies Allergy/AdvReac Type Severity Reaction Status Date / Time acesulfame Allergy Unknown Unknown Verified 06/13/21 12:16 aspartame Allergy Unknown Unknown Verified 06/13/21 12:16 [From Nutrasweet Aspartame] saccharin Allergy Unknown Unknown Verified 06/13/21 12:16 sucralose Allergy Unknown Unknown Verified 06/13/21 12:16 mold Allergy Unknown Verified 06/13/21 12:16 pollen extracts Allergy Unknown Verified 06/13/21 12:16 Consultations 06/13/21 11:01 ED Decision to Admit Stat 06/13/21 13:37 Consult Fashion Artist Routine 06/13/21 17:57 Consult Palliative Care Routine Ordered Studies Chest X-Ray 06/13/21 10:00 XR chest 1V portable INDICATION: MN ^SEPSIS . TECHNIQUE: Single frontal radiograph of the chest was obtained. Comparison: Comparison is made to chest one view 05/18/2021 FINDINGS: No lines and tubes are seen. The cardiomediastinal silhouette is shifted to the left. Left retrocardiac airspace opacity. No pneumothorax or right effusion, left effusion cannot be excluded. IMPRESSION: Likely left lower lobe atelectasis with or without superimposed aspiration, pneumonia, and/or layering effusion. ACT 112: Negative or not required by law. Electronically signed by: Tee Mijares M.D. 06/13/2021 11:27 AM Chest X-Ray 06/13/21 10:30 XR chest 1V portable INDICATION: MN ^Y ^INTUBATION, OG PLACEMENT. TECHNIQUE: Single frontal radiograph of the chest was obtained. Comparison: Comparison is made to chest one view 06/13/2021 at 1001 hours FINDINGS: Stable right subclavian venous catheter with the tip in the mid SVC. Interval placement of enteric tube with the side-port and tip below the diaphragm and e ndotracheal tube with the tip 2 cm from the kati. The cardiomediastinal silhouette is normal. The lungs are clear. No evidence of pleural effusion or pneumothorax. IMPRESSION: Endotracheal tube tip is 2 cm above the kati and can be withdrawn approximately 1 cm for improved positioning. ACT 112: Negative or not required by law. Electronically signed by: Tee Mijares M.D. 06/13/2021 11:[address] 06/13/21 11:29 CT chest diagnostic wo con CT DOSE: 631.91 mGycm CLINICAL HISTORY: 75 years-old Female with evaluate left lung hypoxia s/p intubation. Acute hypoxia with respiratory failure TECHNIQUE: Multiaxial CT images of the chest were performed without contrast. A dose lowering technique was utilized adhering to the principles of ALARA. COMPARISON: Chest radiograph of same day, CT abdomen and pelvis 05/18/2021 FINDINGS: Thyroidectomy. No adenopathy. Mild cardiomegaly with small pericardial effusion. Extensive coronary artery calcifications. No thoracic aortic aneurysm. The pulmonary artery is dilated measuring up to 3.7 cm suggestive of pulmonary artery hypertension. The endotracheal tube is present within the trachea termi nating 2.0 cm superior to the kati. A right subclavian central venous catheter distal tip terminates in the mid SVC. Enteric tube distal tip terminates within the gastric body. Trace pleural effusions. No pneumothorax. Bibasilar mucous plugging. Multifocal consolidative and groundglass opacities of the left lung with minimal patchy opacities of the basal right lower lobe. Dense consolidation with air bronchograms of the lingula and left upper lobe. Asymmetric intralobular septal thickening of the lingula. 7 mm groundglass nodular density of the right upper lobe on image 66. Mild splenomegaly. Wall thickening of the mid and distal esophagus. Unremarkable soft tissues. Cervical spinal fusion hardware. No acute fracture. IMPRESSION: 1. Satisfactory positioning of the endotracheal and enteric tubes and right subclavian central venous catheter. 2. Dense airspace consolidation the left upper lobe and lingula with air bronchograms are noted in addition to left greater than right bibasilar predominant groundglass and consolidative opacities compatible with multifocal pneumonia. 3. Mild bibasilar mucous plugging. 4. Trace pleural effusions. 5. Cardiomegaly. 6. Additional findings as above. ACT 112: Negative or not required by law. Electronically signed by: Aurelio Fernández M.D. 06/13/2021 1:24 PM Chest X-Ray 06/13/21 14:11 XR chest 1V portable HISTORY: 75 years-old Female Post bronchoscopy status post bronchoscopy. COMPARISON: Chest CT of same day TECHNIQUE: Portable AP view of the chest FINDINGS: Endotracheal tube overlies the midline, 4.4 cm superior to the kati. Enteric tube courses below the diaphragm with distal tip overlying the proximal stomach. Left lung predominant ill-defined patchy airspace opacities with moderately improved aeration of the left lung base. No pneumothorax or large pleural effusion. Unchanged positioning of the right subclavian catheter. No acute fracture. Cervical spinal fusion hardware. IMPRESSION: 1. Moderately improved aeration of the left lung status post bronchoscopy. No pneumothorax. 2. Persistent left lung predominant patchy airspace opacities suggestive of p neumonia. ACT 112: Negative or not required by law. The above report was generated using voice recognition software. It may contain grammatical, syntax or spelling errors. Electronically signed by: Aurelio Fernández M.D. 06/13/2021 2:50 PM Chest X-Ray 06/14/21 07:00 XR chest 1V portable HISTORY: 75 years-old Female Respiratory failure acute respiratory failure COMPARISON: Chest radiograph and chest CT 06/13/2021 TECHNIQUE: Portable AP view of the chest FINDINGS: Endotracheal tube terminates 4.0 cm superior to the kati. Enteric tube distal tip projects over the proximal stomach. Right-sided PICC distal tip terminates over the mid SVC. Cardiac silhouette is enlarged. No pneumothorax or large pleural effusion. Left greater than right bilateral ill-defined pulmonary opacities appear stable. Cervical spinal fusion hardware. IMPRESSION: 1. Lines and tubes as above. 2. Left greater than right bilateral pulmonary opacities appear stable suggestive of multifocal pneumonia. 3. No pneumothorax. ACT 112: Negative or not required by law. The above report was generated using voice recognition software. It may contain grammatical, syntax or spelling errors. Electronically signed by: Aurelio Fernández M.D. 06/14/2021 6:56 AM Chest X-Ray 06/14/21 13:49 XR chest 1V portable HISTORY: s/p intubation and bronchoscopy COMPARISON: Chest 06/14/2021. FINDINGS: No pneumothorax. No pleural effusions. The heart is normal in size. Endotracheal tube terminates 2.8 cm from the kati. Nasogastric tube terminates below the diaphragm. Right PICC terminates in the proximal SVC. Cervical spinal fusion hardware is noted. Left greater than right patchy bibasilar airspace opacities consistent with a pneumonia. This has slightly improved. The heart is normal in size. IMPRESSION: 1. Satisfactory support line placement. 2. Patchy bibasilar airspace opacities have slightly improved. ACT 112: Negative or not required by law. Electronically signed by: Param Hwang M.D. 06/14/2021 2:41 PM Chest X-Ray 06/15/21 07:00 XR chest 1V portable CLINICAL HISTORY: f/u COMPARISON STUDY: Chest CT June 13, 2021. Chest radiograph August 14, 2021. FINDINGS: Tip of endotracheal tube is 3.8 cm above the kati. Tip of nasogastric tube is below the lower aspect of this image but at least within the proximal stomach. Cardiomegaly is unchanged. There is no evidence for pulmonary edema. There is no pneumothorax. No pleural effusion is identified. Multifocal left lung opacities are similar to prior exam. IMPRESSION: 1. Satisfactory positioning of the endotracheal tube. 2. No significant change in left lung airspace opacities. ACT 112: Negative or not required by law. Electronically signed by: Maynor Gonzalez M.D. 06/15/2021 7:41 AM Chest X-Ray 06/16/21 07:00 XR chest 1V portable CLINICAL HISTORY: f/u COMPARISON STUDY: Chest radiograph June 15, 2021. FINDINGS: Tip of endotracheal tube is 4.1 cm above the kati. Right-sided central venous catheter is in place. Tip of nasogastric tube is below the lower aspect of this image but at least within the body of the stomach. Cardiomegaly is unchanged. There is no pleural effusion. Left basilar opacity is noted. Additional mild left upper lung airspace opacities have slightly improved. IMPRESSION: 1. Satisfactory positioning of lines and tubes. 2. Persistent left lung airspace opacities which favor an infectious process. ACT 112: Negative or not required by law. Electronically signed by: Maynor Gonzalez M.D. 06/16/2021 7:01 AM Chest X-Ray 06/17/21 01:51 XR chest 1V portable HISTORY: 75 years-old Female s/p intubation acute respiratory failure COMPARISON: Chest radiograph 03/16/2021 at 6:27 AM TECHNIQUE: Portable AP view of the chest FINDINGS: Endotracheal tube overlies the midline, 3.0 cm superior to the kati. A right- sided PICC is noted with tip in the expected location of the upper SVC. No pneumothorax. Trace right pleural effusion with interstitial opacities throughout the right lung. Interval development of complete opacification of the left hemithorax with associated volume loss. Cervical spinal fusion hardware. Surgical clips of the left upper neck. Degenerative changes of the shoulders and spine. IMPRESSION: 1. Endotracheal and right PICC placement as above. 2. No pneumothorax. 3. Small right pleural effusion with unchanged interstitial coarsening of the right lung. 4. Interval development of complete opacification of the left hemithorax with associated volume loss, possibly secondary to mucous plugging with atelectasis. ACT 112: Negative or not required by law. The above report was generated using voice recognition software. It may contain grammatical, syntax or spelling errors. Electronically signed by: Aurelio Fernández M.D. 06/17/2021 7:18 AM Chest X-Ray 06/17/21 02:29 XR chest 1V portable HISTORY: 75 years-old Female repeat respiratory failure COMPARISON: Chest radiograph 06/17/2021, chest CT 06/13/2021 TECHNIQUE: AP view of the chest FINDINGS: Endotracheal tube overlies the midline, 3.6 cm superior to the kati. A right- sided PICC is noted with tip in the expected location of the upper SVC. No pneumothorax. Trace right pleural effusion with interstitial opacities throughout the right lung. Complete opacification of the left hemithorax redemonstrated with associated volume loss. Cervical spinal fusion hardware. Surgical clips of the left upper neck. Degenerative changes of the shoulders and spine. IMPRESSION: 1. Endotracheal and right PICC placement as above. 2. No pneumothorax. 3. Small right pleural effusion with unchanged interstitial coarsening of the right lung. 4. Complete opacification of the left hemithorax redemonstrated with associated volume loss. ACT 112: Negative or not required by law. The above report was generated using voice recognition software. It may contain grammatical, syntax or spelling errors. Electronically signed by: Aurelio Fernández M.D. 06/17/2021 7:12 AM Chest X-Ray 06/17/21 03:40 XR chest 1V portable HISTORY: 75 years-old Female s/p formal bronch status post recent bronchoscopy COMPARISON: Chest radiograph 06/17/2020 09/29/2012 exam TECHNIQUE: Portable AP view of the chest FINDINGS: Endotracheal tube overlies the midline, 4.5 cm superior to the kati. A right-s ided PICC is present with distal tip in the expected location of the upper SVC. No pneumothorax. Right greater than left interstitial opacities with patchy consolidative densities about the left lung. There is improved aeration of the left lung from comparison. Small left and trace right pleural effusions. Bones appear grossly intact. Surgical clips of the abdominal right upper quadrant. IMPRESSION: 1. Lines and tubes as above. 2. Improved aeration of the left lung status post bronchoscopy with left greater than right interstitial densities and left lung airspace consolidation. 3. No pneumothorax. 4. Trace right and small left pleural effusions. ACT 112: Negative or not required by law. The above report was generated using voice recognition software. It may contain grammatical, syntax or spelling errors. Electronically signed by: Aurelio Fernández M.D. 06/17/2021 7:20 AM Chest X-Ray 06/18/21 07:00 SINGLE VIEW CHEST CLINICAL HISTORY: Respiratory failure. FINDINGS: An AP, portable, upright chest radiograph is compared to study dated 06/17/2021 and correlated with chest CT dated 06/13/2021. The examination is degraded by portable technique and patient rotation. An endotracheal tube and a right PICC line are unchanged in position. The heart is top normal for projection noting atherosclerotic calcification of the thoracic aorta. There are left larger than right pleural effusions with multifocal airspace consolidation. This is greatest at the lung bases. No pneumothorax is seen. The skeletal structures are osteopenic. The bony thorax is grossly intact. Fusion hardware is noted in the lower cervical spine. IMPRESSION: 1. Stable lines and tubes. 2. Multifocal airspace consolidation is again seen, greatest at the lung bases. This appears modestly cleared in the left upper lobe from yesterday. 3. Left larger than right pleural effusions. ACT 112: Negative or not required by law. Electronically signed by: Flako Mcdonough M.D. 06/18/2021 8:40 AM Hospital Course (1) Palliative care patient: - After extensive hospital stay patient was converted to comfort measures - She was made comfortable with DEREK Dilaudid and further comfort approves. 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 She ultimately needed re-intubation same day and extubated on 06/16. She was re- intubated on 06/17 and ultimately extubated on 06/18 to NC and comfort measures - Additional medical issues complicating her stay - acute on chronic renal failure, quadriplegia status, chronic osteomyelitis, T2DM, Stage IV pressure ulcer heal/Stage 4 decubitus ulcer of sacral region, solitary kidney Total Time Total Time Spent Total Time Spent (In Minutes): Due to patient expiring overnight. Time spent 15 minutes, reviewing chart and preparing paperwork Discharge Plan Discharge Items Patient Disposition: Other Date/Time: 07/10/21 00:00 Supervising Physician Co-Signing Physician Notes Attending note: patient seen and examined with Sadie Alfaro PA-C. I agree with her discharge summary. I personally reviewed the labs and imaging findings. patient on FINANCIAL AID DIRECTOR due to respiratory failure peacefully, family notified Coding Level of Care Code D/C DAY MANAGEMENT <30 MINS Diagnoses Palliative care patient Z51.5 Acute respiratory failure with hypoxia J96.01
== END 2021-07-10 | disposition expired | DRG 871 ==
LOC: ED 09:46 → SUATTDRO 11:43 → 1E 11:43 → 3E 06-18 22:04